=== PATIENT | female | born 1945 | race Caucasian/White ===

== ENCOUNTER 2021-11-18 13:07 | Inpatient (IN) | payer OTHER ==
--- NOTE | 2021-11-18 14:35 | R.PREADM ---
PRE-ADMISSION SCREENING FORM SCREENING DATE AND TIME 11/17/2021 14:43 ([facility]) ANTICIPATED REHAB ADMISSION DATE 11/19/2021 REFERRING FACILITY [facility] REFERRAL DATE AND TIME 11/17/2021 14:43 ([facility]) REFERRAL OFFICE PHONE [phone] REFERRAL ROOM# 6 E ACUTE ADMIT DATE 11/16/2021 Previous Rehabilitation(s): No. 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 Shalom Almeida M.D. MR# [id number] NAME SAY ADAMSON ADDRESS [address] [facility] PHONE [facility] [address] DATE OF 1945 AGE 76 SSN# [id number] GENDER female MARITAL STATUS PREF. LANGUAGE (IF NON-SLOVAK) Austrian ADMIT FROM 02 - [facility] PRE-HOSPITAL LIVING SETTING 01 - Home (private home/apt. board/care, assisted living, skilled nursing, transitional living) HOME TYPE AND DETAILS Type of home: single family house # of steps to enter the residence: 0 # of levels in the residence: 1 # of steps within the residence: 0 PRE-HOSPITAL LIVING WITH Family/Relatives FAMILY SUPPORT Yes PRIMARY FAMILY CONTACT NAME FLORENCIA ADAMSON PRIMARY FAMILY CONTACT PHONE PRIMARY FAMILY CONTACT RELATIONSHIP Spouse PHONE PRIMARY FAMILY CONTACT ON ADM.? no IS PRIMARY FAMILY CONTACT AUTH. REP.? no 1ST EMERGENCY CONTACT FLORENCIA ADAMSON 1ST CONTACT PHONE 1ST CONTACT RELATIONSHIP Spouse PHONE 1ST CONTACT ON ADM. no IS 1ST CONTACT AUTH. REP.? no PHONE 2ND CONTACT ON ADM.? no PATIENT EMPLOYMENT STATUS Retired (for age) PATIENT EMPLOYER No Employer PAYOR INFORMATION: 1ST PAYOR NAME MEDICARE 1ST PAYOR PHONE [phone] 1ST PAYOR INJURY/ILLNESS DUE TO ACCIDENT? No ANOTHER [employer] RESPONSIBLE? No PRIMARY REHAB/ACUTE DIAGNOSIS: TOTAL RIGHT HIP ARTHROPLASTY ONSET DATE 11/16/2021 REHAB IMPAIRMENT CATEGORY (KATHI): 08 Replacement of LE (ReplLE) does NOT meet 60% rule if unilateral and patient has mass index <50 and age <85 AFFECTED EXTREMITIES: RLE PRIMARY DIAGNOSIS-RELATED SURGERIES: RIGHT TOTAL HIP ARTHROPLASTY INTERVENTIONS: - HYPERTENSION Blood pressure will be regularly assessed and medications administered as per physician recommendfabien murphy. - Diabetes Diet will be customized to manage diabetic needs. Monitor blood glucose levels and administer medication as indicated by Physician - GERD Monitor symptoms and provide medication as indicated by physician RISK FOR COMPLICATIONS: - Diabetic Complications Regular monitoring and management of blood glucose levels. pt will receive a specialized diet to help manage blood glucose levels - orthopedic right total hip arthroplasty - DVT PTT and INR will be monitored to effectively mitigate risk for development of DVT or PE while here. Medications will be administered as per MD Mobility training and regular exercise - Skin Breakdown Nursing will assess skin daily using assessment tool and will place on Skin Breakdown Precautions as Indicated per protocol - Pain Clinical staff will assess patient's pain level every shift per protocol to monitor for pain manageme nt effectiveness Educate patient on pain management strategies - Falls Patient will be evaluated for Fall Precautions and will be placed on Fall Precautions as indicated pe r protocol. Educated pt on fall prevention strategies to reduce/eliminate fall risk - Hip Dislocation pt will be educated as to posterolateral hip precautions following recent surgery to ensure proper he aling and prevention of post-op complications. - Infection Monitoring of surgical site and pt for signs and symptoms of infection. SUMMARY OF ACUTE HOSPITALIZATION: Pt. is a 76 yo Right-handed female. On 11/16/2021 she was admitted to [facility] with diagnosis TOTAL RIGHT HIP ARTHROPLASTY. Pt. was admitted to the hospital on 11/17/2021 and underwent Orthopaedic Disorders(Unilateral Hip Rep lacement ()) by ISRAEL Escobar A MD without any intraoperative complications. Her impairment category is Orthopaedic Disorders 08 - Unilateral Hip Replacement (). Pre-morbidly, Pt. was independent/mod-I in Locomotion, Safety Awareness, Social Cognition, and Balanc e; and she had good Transfers Control, Sphincter Control, Self-Care, Communication, and Endurance. Currently, she has deficits of Locomotion, Social Cognition, Safety Awareness, Balance, Sphincter Con trol, Self-Care, Transfers Control, Endurance, and Communication. Pt. is now referred to [facility] for acute in-patient rehabilitation in order to maximize patient's functional independence in activities of daily living, strength, ROM, and mobi lity. Patient has realistic goal of being discharged at assistance level 7-Ind to reside at Home with Fami ly/Relatives. 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) up to date with immunizations WEARS GLASSES PAST SURGICAL HISTORY: ABDOMINAL SURGERY anterior cervical discectomy w fusion arthroplasty, hip, total RIGHT BREAST LUMPECTOMY caesarean section x 2 COLONOSCOPY dilation and curettage of uterus discectomy, cervical, with fusion, anterior approach esophagogastroduodenoscopy foot surgery HERNIA REPAIR hysterectomy shoulder surgery SPINE SURGERY MEDICATION ALLERGIES: IODINE LEVOFLOXACIN CANAGLIFLOZIN DULAGLUTIDE ENVIRONMENTAL ALLERGIES: - Substance Allergies None Known - Other Allergies None Known CODE STATUS: Full code WEIGHT/HEIGHT/BMI: WEIGHT 188 lbs HEIGHT 5' 0" BMI 36.7 DIET: - Diet Type Regular - Diet - Solid Texture Regular - Diet - Liquid Texture Regular - Tube Feed N/A SKIN DIAGRAM: on Right hip; extent - small; stage - NS(Not Stageable). Treatment - Per Physician's Orders. REVIEW OF SYSTEMS: - Gen Alert and awake Lying in bed No apparent distress Oriented to: person, time, and place - Vital Signs Temperature: 97.4 F SBP/DBP: 117/52 Pulse: 80 Resp: 15 Vital signs stable, afebrile - CVS RRR VITAL SIGNS Temperature: 97.4 F SBP/DBP: 117/52 Pulse: 80 Resp: 15 Vital signs stable, afebrile MEDICATIONS/TREATMENT: Other- See attached MAR (Medication Administration Record). CURRENT SPHINCTER CONTROL: Pre-hospital bladder status: unspecified # of bladder accidents in the last 7 days prior to screenin Pre-hospital bowel status: unspecified # of bowel accidents in the last 7 days prior to screenin Last Bowel Movement Date: 11/17/2021 CURRENT LOCOMOTION STATUS: distance walked 2 steps with rolling walker DETAILED CURRENT FUNCTIONAL STATUS: - Bladder accident frequency: 7-Ind - No accidents in the past 7 days - Bowel accident frequency: 7-Ind - No accidents in the past 7 days - Walking score based on distance walked: 0(N/A) score based on distance walked: 1(<=50ft) - Wheelchair score based on distance traveled: 0(N/A) QI SCORES: - Self-Care A. Eating 03-Partial/moderate assistance B. Oral hygiene 02-Substantial/maximal assistance C. Toileting hygiene 02-Substantial/maximal assistance E. Shower/bathe self 02-Substantial/maximal assistance F. Upper body dressing 02-Substantial/maximal assistance G. Lower body dressing 88-Not attempted due to medical condition or safety concerns H. Putting on/taking off footwear 88-Not attempted due to medical condition or safety concerns - Mobility A. Roll left and right 03-Partial/moderate assistance B. Sit to lying 02-Substantial/maximal assistance C. Lying to sitting on side of bed 02-Substantial/maximal assistance D. Sit to stand 02-Substantial/maximal assistance E. Chair/rqi-qi-wjgyh transfer 02-Substantial/maximal assistance F. Toilet transfer 02-Substantial/maximal assistance G. Car transfer 88-Not attempted due to medical condition or safety concerns I. Walk 10 feet 88-Not attempted due to medical condition or safety concerns J. Walk 50 feet with two turns 88-Not attempted due to medical condition or safety concerns K. Walk 150 feet 88-Not attempted due to medical condition or safety concerns L. Walking 10 feet on uneven surfaces 88-Not attempted due to medical condition or safety concerns M. 1 step (curb) 88-Not attempted due to medical condition or safety concerns N. 4 steps 88-Not attempted due to medical condition or safety concerns O. 12 steps 88-Not attempted due to medical condition or safety concerns P. Picking up object 88-Not attempted due to medical condition or safety concerns R. Wheel 50 feet with two turns 88-Not attempted due to medical condition or safety concerns S. Wheel 150 feet 88-Not attempted due to medical condition or safety concerns - Bladder and Bowel Bladder continence Bowel continence - Endurance Fair - Balance Fair - Safety Awareness Fair CURRENT FUNC. DEFICITS: Self-Care, Mobility, Endurance, Balance, and Safety Awareness CURRENT / PREVIOUS ASSISTIVE DEVICES: Rolling Walker HISTORY OF FALLS. HAS THE PATIENT HAD TWO OR MORE FALLS IN THE PAST YEAR OR ANY FALL WITH INJURY IN T HE PAST YEAR?: No PRIOR SURGERY. DID THE PATIENT HAVE MAJOR SURGERY DURING THE 100 DAYS PRIOR TO ADMISSION?: Yes THERAPY NOTES FROM ACUTE CARE: Attached. SPECIAL NEEDS: - Safety Concerns Skin breakdown precautions needed due to skin breakdown risk PRECAUTIONS: - Posterior Hip Precaution No adduction across midline No external rotation No hip flexion >90 degrees No internal rotation No wheel chair propulsion - Weight Bearing Precaution WBAT right LE PATIENT NEEDS ACTIVE AND ONGOING THERAPEUTIC INTERVENTION OF MULTIPLE THERAPY DISCIPLINES, INCLUDING: - Dietary and Nutrition Adequate Nutrition. Nutritional Education. Nutritional Supplements. Evaluate and Treat. - Occupational Therapy Cognitive Retraining. Patient needs Occupational Therapy for a daily minimum of 1.5 hours at least 5 out of 7 days, to improve Activities of Daily Living, including: Eating, Grooming, Bathing, Dressing, Toileting, Toilet Transfers, Community Reintegration, Higher functional activities, Adaptive Equipme nt, Splinting, Household Tasks, and Other activities as determined. Visual Perceptual Training. Evalu ate and Treat. Safety Awareness. Patient/Family Education. Transfer Training. Adaptive Equipment. ADL Training. - Speech Therapy Speech Intelligibility Training. Evaluate and Treat. Cognitive Training. Receptive Language Skills. M james Strategies. - Physical Therapy Patient needs Physical Therapy for a daily minimum of 1.5 hours at least 5 out of 7 days, to improve: Mobility, Strengthening, Transfers, Stretching, ROM, Endurance, Ability to manage stairs, Gait, and Balance. Evaluate and Treat. Gait Training. Mobility Training. Safety Awareness. Balance Training. Tr ansfer Training. LE Strengthening. PATIENT NEEDS CLOSE MEDICAL SUPERVISION BY A REHABILITATION PHYSICIAN FOR: Coordination of Treatment Team Post-Op Complications Wound Care Medical and Co-Morbidity Management Pain Management DVT Management Diabetes Management Sleep Problems PATIENT REQUIRES 24X7 REHAB NURSING FOR MEDICAL AND FUNCTIONAL MGT. OF THE FOLLOWING DEFICITS: Disease Management Medication Management Patient requires 24x7 Rehabilitation Nursing for: Pain Issues, Identifying and preventing risk factor s, Monitoring and reporting current medical conditions, Assisting with ambulation and transfer, Jarod ting with all ADL-s, Teaching patients about disease process and medications, Family teaching, Provid ing safe environment, Bowel and Bladder Issues, Skin Integrity, and Medication Management Patient/Family Education Providing Safe Environment Skin Integrity PATIENT REQUIRES INTENSIVE, COORDINATED INTERDISCIPLINARY APPROACH TO REHAB: Arranging Home Equipment/Services Discharge Planning Family Intervention/Training Patient needs Dietary and Nutrition Services for: Adequate Nutrition, Nutritional Supplements, and Nu tritional Education Patient needs Director Of Business Continuity and/or Case Management for: Discharge Planning, Arranging Home Equipmen t or Services, and Family Interventions Director Of Business Continuity/Case Management PATIENT REHAB POTENTIAL: Vandana ADAMSON is able and expected to receive 3 hours of individualized therapy daily on at least 5 of every 7 days Vandana ADAMSON's prognosis for significant practical improvement within a reasonable period of time lexie ears Good Expected level of measurable improvement will be of a practical value to Vandana ADAMSON's functional ca pacity or adaptations to impairments Has a viable Discharge Plan Medically appropriate; condition is sufficiently stable to participate in intensive rehab program DISCHARGE PLAN: - Estimated Length of Stay (days) 9. - Consensus on plan Discharge plan has been discussed with primary caregiver. Patient/Family is in agreement with the chery n. Primary caregiver is in agreement with the plan. - Patient/Family Goals Return home independently. - Planned Living Setting Upon Discharge Home, to live with Family/Relatives. Transitional Living. RECOMMENDED CARE LEVEL: IRF RECOMMENDATION DETAILS: Recommended Admission to Comprehensive Rehabilitation Program to Increase Functional [place] SCREENER'S COMPLETENESS CONFIRMATION: - Screening Confirmation The patient data collection on this preadmission screening form is finished PHYSICIANS REVIEW AND ADMISSION DETERMINATION Admit - Based on my review of the Pre-Admission Screening results, in my medical judgment and experie nce, I concur with the findings and recommend admission to [facility], as this patient requires an IRF level of care. SIGNATURE PANEL: Distribution Operation Supervisor - [electronically] signed by Kamryn Harvey on 11/18/2021 at 13:03 ([facility]) Distribution Operation Supervisor - [electronically] signed by Kelvin Lamb PT on 11/18/2021 at 14:02 ([facility]) Physician Reviewer - [electronically] signed by Dr. Shalom Almeida M.D. on 11/18/2021 at 14:34 ([facility] )
--- OUTSIDE RECORDS SUMMARY | 2021-11-18 19:16 | XMS REPORT | Continuity of Care Document ---
:1945 Author Organization [facility] t Address [address] [place] [address] Care Team Providers Name Role Phone KAILEE Attending Clinician Unavailable MD Freddy DUGAN Attending Clinician Unavailable MARGO Attending Clinician Unavailable JOANNA Attending Clinician Unavailable Meghann Shah Attending Clinician [phone] LOAN Attending Clinician Unavailable [email or web address] Attending Clinician Unavailable KAILEE Admitting Clinician Unavailable MD Freddy DUGAN Admitting Clinician Unavailable JOANNA Admitting Clinician Unavailable joanna Admitting Clinician Unavailable Payers Payer Name Policy Type Policy Number Effective Date Expiration Date S tamika MEDICARE B-[place]: [id number] 2012 [employer] 00:00:00 [employer] SUPPLEMENTAL - [id number] 2013 [employer] AND 00:00:00 LIFE INSURANCE (MEDICARE SUPPLEMENT) Problems This patient has no known problems. Allergies, Adverse Reactions, Alerts This patient has no known allergies or adverse reactions. Medications This patient has no known medications. Procedures This patient has no known procedures. Encounters Start End Encounter Admission Attending Care Care Encounter Source Date/Time Date/Time Type Type Clinicians Facility Department ID 2021-11-16 2021-11-[address] [facility] [id number] [place] 00:00:00 00:00:[address] 2021-11-01 2021-11-[address] [facility] [id number] [place] 00:00:00 00:00:[address] 2021-10-27 2021-10-27 Outpatient MARGO [facility] [id number] [place] 00:00:00 00:00:00 DOLORES [address] 2021-10-27 2021-10-27 Outpatient DUGAN, ROLAN [facility] [id number] [place] 00:00:00 00:00:[address] 2021-10-12 2021-10-12 Outpatient DUGAN, ROLAN [facility] [id number] [place] 00:00:00 00:00:[address] 2021-09-16 2021-09-16 Outpatient BRYAN_Fouzia [facility] [id number] [place] 10:55:00 10:55:00 [facility] 2021-09-16 2021-09-16 Outpatient Cheyanne Shah [facility] [id number] 00:00:00 00:00:00 Meghann [id number] 2021-08-18 2021-08-18 Outpatient DUGAN, ROLAN [facility] [id number] [place] 00:00:00 00:00:[address] 2021-08-18 2021-08-18 Outpatient DUGAN, ROLAN [facility] [id number] [place] 00:00:00 00:00:[address] 2021-07-29 2021-07-29 Outpatient DUGAN, ROLAN [facility] [id number] [place] 00:00:00 00:00:[address] 2021-07-12 2021-07-12 Outpatient DUGAN, ROLAN [facility] [id number] [place] 00:00:00 00:00:[address] 2021-07-12 2021-07-12 Outpatient DUGAN, ROLAN [facility] [id number] [place] 00:00:00 00:00:[address] 2021-05-21 2021-05-21 Outpatient CATES, ADRIEL [facility] [id number] [place] 00:00:00 00:00:[address] 2021-04-29 2021-04-29 Outpatient DUGAN, ROLAN [facility] [id number] [place] 00:00:00 00:00:[address] 2021-04-29 2021-04-29 Outpatient DUGAN, ROLAN [facility] [id number] [place] 00:00:00 00:00:[address] 2021-04-29 2021-04-29 Outpatient ROLAN DUGAN [facility] [id number] [place] 00:00:00 00:00:[address] 2021-04-28 2021-04-28 Outpatient ROLAN DUGAN [facility] [id number] [place] 00:00:00 00:00:[address] 2021-04-28 2021-04-28 Outpatient ROLAN DUGAN [facility] [id number] [place] 00:00:00 00:00:[address] 2021-01-04 2021-01-04 Outpatient KESUZI_Fouzia [facility] [id number] [place] 05:46:00 05:46:00 [facility] 2021-01-04 2021-01-04 Outpatient Cheyanne Shah [facility] [id number] 00:00:00 00:00:00 Meghann [id number] 2020-12-28 2020-12-28 Outpatient KEFFER_Fouzia [facility] [id number] [place] 02:01:00 02:01:00 [facility] 2020-12-28 2020-12-28 Outpatient Cheyanne Shah [facility] [id number] 00:00:00 00:00:00 Meghann [id number] 2020-12-21 2020-12-21 Outpatient KESUZI_Fouzia [facility] [id number] [place] 12:01:00 12:01:00 [facility] 2020-07-29 2020-07-29 Outpatient keffer_a [facility] MM 2019 [place] 02:19:00 02:19:00 [id number] 2018-08-08 2018-08-08 Outpatient keffer_a [facility] MM 2019 [place] 04:05:00 04:05:00 [facility] Results Test Description Test Time Test Comments Results Result Comments Source SARS-CoV-2 (COVID-19) RNA [Presence] in Respiratory sp ecimen by 2021-11-18 02:11:13 YENI with probe detection Test Item Value Reference Range Interpretation Comme nts SARS-CoV-2 (COVID-19) RNA [Presence] in Respiratory specimen by Not detected YENI with probe detection (test code = 54374-5) Whether patient is employed in a healthcare setting (test code = Un known 76768-6) Whether the patient has symptoms related to condition of interest U nknown (test code = 00329-8) Whether the patient was hospitalized for condition of interest Unkn own (test code = 69410-1) Whether the patient was admitted to intensive care unit (ICU) for U nknown condition of interest (test code = 64426-1) Whether patient resides in a congregate care setting (test code = U nknown 13671-6) status (test code = 68866-8) Unknown Date and time of symptom onset (test code = 48713-2) Unknown SARS-CoV-2 (COVID-19) RNA [Presence] in Respiratory specimen by YENI with probe [id number] 21:49:41 Test Item Value Reference Range Interpretation Comments SARS-CoV-2 (COVID-19) RNA Not detected Not-Detected [Presence] in Respiratory specimen by YENI with probe detection (test code = 68207-2) Whether patient is employed in a healthcare setting (test code = 47771-2) Whether the patient has symptoms related to condition of interest (test code = 72155-6) Patient was hospitalized because of this condition (test code = 88408-6) Whether the patient was admitted to intensive care unit (ICU) for condition of interest (test code = 82662-1) Whether patient resides in a congregate care setting (test code = 27812-8)
[2021-11-18] MEDS ORDERED: GLUCAGON 1 MG/VIAL IM PRN (21:00)
[2021-11-18] MEDS ORDERED: D50W 25 GM/50 ML SYRINGE IV PRN (21:00)
[2021-11-18] MEDS: VENLAFAXINE HCL 75 MG TABLET PO SCH (21:00)
[2021-11-18] MEDS ORDERED: MECLIZINE HCL 12.5 MG TAB PO PRN (21:00)
[2021-11-18] MEDS ORDERED: DOCUSATE NA/SENNA CONC 1 TAB PO PRN (21:00)
[2021-11-18 21:11] VITALS: BMI 34.4
[2021-11-18] MEDS ORDERED: REFRESH OPTH OPTH PRN (21:15)
[2021-11-18] MEDS: ATORVASTATIN 20 MG TAB PO SCH (21:22)
[2021-11-18] MEDS ORDERED: VENLAFAXINE HCL XR 75 MG CAP PO ONE (21:41)
[2021-11-18] MEDS: BENZONATATE 100 MG CAP PO PRN (21:49)
[2021-11-18 23:05] LABS: Urine Appearance CLEAR (Clear); Urine Bilirubin NEGATIVE (Negative); Urine Blood NEGATIVE (Negative); Urine Color YELLOW (Yellow); Urine Glucose NEGATIVE (Negative); Urine Protein NEGATIVE (Negative); Urine Specific Gravity <=1.005 (1.005-1.030); Urine Urobilinogen 0.2 mg/dL (0.2-1.0)
[2021-11-18 23:07] LABS: Urine Microscopic Reflex NO UMIC
[2021-11-19] MEDS: HYDROCODONE/APAP 10/325 TAB PO PRN ×2 (01:59→13:47)
[2021-11-19] MEDS: LEVOTHYROXINE SOD 0.05 MG TABLET PO SCH (05:20)
[2021-11-19 05:54] LABS: Absolute Lymphocytes (CBC) 2.7 K/uL (0.7-4.9); Lymphocytes % 27.7 % (15.3-44.8); MPV 6.2 fL (7.6-11.3); RBC Red Blood Cell Count 2.42 M/uL (3.86-4.86)
[2021-11-19 05:59] LABS: Hematocrit 20.7 % (36.0-45.0)
[2021-11-19 06:31] LABS: Albumin 2.1 g/dL (3.4-5.0); Magnesium 1.8 mg/dL (1.8-2.4); Phosphorus 3.8 mg/dL (2.5-4.9); Potassium 4.4 mmol/L (3.5-5.1); Prealbumin 11.5 mg/dL (20-40)
[2021-11-19] MEDS: PANTOPRAZOLE 40MG TABLET PO SCH (07:24)
[2021-11-19] MEDS: INSULIN -REGULAR HUMAN 50 UNIT/0.5 ML ML SQ SCH ×4 (07:30→19:55)
[2021-11-19] MEDS: INSULIN 70/30 100 UNITS/ML SQ SCH ×2 (07:57→16:30)
[2021-11-19] MEDS: FERROUS SULFATE 325 MG TAB PO SCH (07:58)
[2021-11-19] MEDS: FUROSEMIDE 20 MG TABLET PO SCH (07:58)
[2021-11-19] MEDS: METFORMIN HCL 500 MG TAB PO SCH ×2 (07:58→17:10)
[2021-11-19] MEDS: VITAMIN B COMPLEX 1 CAP PO SCH (07:58)
[2021-11-19] MEDS: lisinopriL 10 MG TAB PO SCH (07:58)
[2021-11-19] MEDS: RIVAROXABAN 10 MG TABLET PO SCH (07:58)
[2021-11-19] MEDS: POTASSIUM CL SA 10 MEQ TAB PO SCH (07:58)
[2021-11-19] MEDS: FE SULF/FA/VIT B COMP & C TAB PO SCH (07:58)
[2021-11-19] MEDS: POLYETHYL GLY 3350 17 GM/DOSE PO SCH (07:59)
[2021-11-19] MEDS ORDERED: BIOTIN PO SCH (08:00)
[2021-11-19] MEDS ORDERED: [UNRECOGNIZED DRUG - OTHER] PO SCH (08:00)
[2021-11-19] MEDS: FLUTICASONE 50MCG NASAL SPRAY NAS SCH (09:02)
[2021-11-19] MEDS: CELECOXIB 100 MG CAPSULE PO SCH (09:02)
[2021-11-19] MEDS: COENZYME Q10- 200 MG CAP PO SCH (09:02)
[2021-11-19] MEDS: OCUVITE (VIT A,C & E/LUTEIN/MINERAL) TABLET PO SCH (10:13)
[2021-11-19] MEDS: NYSTATIN PWDR 100000 UNIT/GM TOP SCH ×2 (10:14→19:55)
--- NOTE | 2021-11-19 10:21 | P.RH.PN ---
Estimated Length of Stay: 14 Expected Discharge Date: 12/02/21 Discharge Disposition Plan: Home Family Support: Yes Senior Care Goal: Mobility, Transfers, Self Care Vital Signs: Last Vital Signs Temp 95.8 F L 11/19/21 07:48 Pulse 86 11/19/21 07:58 Resp 16 11/19/21 07:48 BP 124/56 L 11/19/21 07:58 Pulse Ox 92 11/19/21 07:51 Laboratory: Laboratory Last Values WBC 9.60 K/uL (4.3-10.9) 11/19/21 05:43 RBC 2.42 M/uL (3.86-4.86) L 11/19/21 05:43 Hgb 7.1 g/dL (12.0-15.0) L 11/19/21 05:43 Hct 20.7 % (36.0-45.0) L* 11/19/21 05:43 MCV 85.5 fL (80-100) 11/19/21 05:43 MCH 29.4 pg (27.0-35.0) 11/19/21 05:43 MCHC 34.4 g/dL (32.0-36.0) 11/19/21 05:43 RDW 14.6 % (12.1-15.2) 11/19/21 05:43 Plt Count 422 K/uL (152-406) H 11/19/21 05:43 MPV 6.2 fL (7.6-11.3) L 11/19/21 05:43 Neutrophils % 56.1 % (41.7-73.7) 11/19/21 05:43 Lymphocytes % 27.7 % (15.3-44.8) 11/19/21 05:43 Monocytes % 11.5 % (3.3-12.3) 11/19/21 05:43 Eosinophils % 4.3 % (0-4.4) 11/19/21 05:43 Basophils % 0.4 % (0-1.3) 11/19/21 05:43 Absolute Neutrophils 5.4 K/uL (1.8-8.0) 11/19/21 05:43 Absolute Lymphocytes 2.7 K/uL (0.7-4.9) 11/19/21 05:43 Absolute Monocytes 1.1 K/uL (0.1-1.3) 11/19/21 05:43 Absolute Eosinophils 0.4 K/uL (0-0.5) 11/19/21 05:43 Absolute Basophils 0.0 K/uL (0-0.5) 11/19/21 05:43 Sodium 134 mmol/L (136-145) L 11/19/21 05:43 Potassium 4.4 mmol/L (3.5-5.1) 11/19/21 05:43 Chloride 101 mmol/L (98-107) 11/19/21 05:43 Carbon Dioxide 30 mmol/L (21-32) 11/19/21 05:43 BUN 13 mg/dL (7-18) 11/19/21 05:43 Creatinine 0.68 mg/dL (0.55-1.3) 11/19/21 05:43 Estimated GFR 85 mL/min (=/>90) L 11/19/21 05:43 Glucose 137 mg/dL (74-106) H 11/19/21 05:43 POC Glucose 136 mg/dL (65-120) H 11/19/21 07:24 Calcium 8.7 mg/dL (8.5-10.1) 11/19/21 05:43 Phosphorus 3.8 mg/dL (2.5-4.9) 11/19/21 05:43 Magnesium 1.8 mg/dL (1.8-2.4) 11/19/21 05:43 Albumin 2.1 g/dL (3.4-5.0) L 11/19/21 05:43 Prealbumin 11.5 mg/dL (20-40) L 11/19/21 05:43 Urine Color Cancelled 11/18/21 22:43 Urine Appearance Cancelled 11/18/21 22:43 Urine pH Cancelled 11/18/21 22:43 Ur Specific [place] Cancelled 11/18/21 22:43 Glucose (UA)(Auto) Cancelled 11/18/21 22:43 Urine Ketones Cancelled 11/18/21 22:43 Urine Blood Cancelled 11/18/21 22:43 Urine Nitrite Cancelled 11/18/21 22:43 Urine Bilirubin Cancelled 11/18/21 22:43 Urine Urobilinogen Cancelled 11/18/21 22:43 Ur Leukocyte Esterase Cancelled 11/18/21 22:43 Ur Microscopic Review Cancelled 11/18/21 22:43 Urine Total Protein Cancelled 11/18/21 22:43 SARS-CoV-2 Rap RNA(RT-PCR) Negative (NEGATIVE) 11/18/21 21:45 Crossmatch See Detail 11/19/21 Unknown Weight: 176 lb 9.6 oz Physician Update: Her Hgb is very low at 7.1. Will give a unit of PRBCs. She will be evaluated by therapy this AM. Summary: Patient's care plan and long-term goals have been reviewed and revised as necessary. Please see the Rehabilitation Signature page for all necessary signatures.
--- NOTE | 2021-11-19 14:54 | R.HP ---
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 board/care, assisted living, mcc, transitional living) PRE-HOSPITAL LIVING WITH Family/Relatives ENCOUNTER PHYSICIAN: Dr. Shalom Almeida M.D. 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 is a 76 yo Right-handed female. On 11/16/2021 she was admitted to [facility] with diagnosis TOTAL RIGHT HIP ARTHROPLASTY. Pt. was admitted to the hospital on 11/19/2021 and underwent Orthopaedic Disorders(Unilateral Hip Rep lacement ()) by ISRAEL Escobar MD without any intraoperative complications. Her impairment category is Orthopaedic Disorders 08 - Unilateral Hip Replacement (51). Pre-morbidly, Pt. was independent/mod-I in Locomotion, Safety Awareness, Social Cognition, and Balanc e; and she had good Transfers Control, Sphincter Control, Self-Care, Communication, and Endurance. Currently, she has deficits of Locomotion, Social Cognition, Safety Awareness, Balance, Sphincter Con trol, Self-Care, Transfers Control, Endurance, and Communication. Pt. is now referred to [facility] for acute in-patient rehabilitation in order to maximize patient's functional independence in activities of daily living, strength, ROM, and mobi lity. Patient has realistic goal of being discharged at assistance level 7-Ind to reside at Home with Fami ly/Relatives. 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) up to date with immunizations WEARS GLASSES PAST SURGICAL HISTORY: ABDOMINAL SURGERY anterior cervical discectomy w fusion arthroplasty, hip, total RIGHT BREAST LUMPECTOMY caesarean section x 2 COLONOSCOPY dilation and curettage of uterus discectomy, cervical, with fusion, anterior approach esophagogastroduodenoscopy foot surgery HERNIA REPAIR hysterectomy shoulder surgery SPINE SURGERY SOCIAL HISTORY: - Home Living Family/Relatives REVIEW OF SYSTEMS: - Gen No Chills Fatigue No Fever - Eyes No Double Vision No itchiness - ENMT No Difficulty Swallowing - CVS No Chest Discomfort No Chest Pain Fatigue No Weight Gain - Resp No Cough Shortness of Breath - GI Continent No Abdominal Pain Constipation No Diarrhea - Continent No Kidney Pain No Painful Urination No Urinary Urgency - MSK No Joint Pain Muscle Cramps Stiffness - Skin No Itching No Rash No Suspicious Lesions - Neuro Coordination Difficulty No Difficulty with Concentration No Memory Loss No Seizures Weakness - Psych No Anxiety No Depression No HIV Exposure No Persistent Infections No Seasonal Allergies - Endo No Cold/Heat Intolerance No Excessive Hunger No Excessive Thirst No Excessive Urination PHYSICAL EXAM - Gen Alert and awake Lying in bed No apparent distress Oriented to: person, time, and place - Skin No skin breakdown. Normacephalic - Eyes No abnormalities - ENMT No abnormalities - Neck No abnormalities - CVS RRR - Chest No abnormalities - Resp No wheezing - Abd Soft - GI Non distended Deferred - No abnormalities - Ext No significant edema - MSK 4+/5 weakness in both lower extremities. - Neuro No focal deficits - Psych No abnormalities VITAL SIGNS Temperature: 97.8 F SBP/DBP: 124/56 Pulse: 86 Resp: 16 NURSING: - Shower allowing shower - Skin care per protocol PRECAUTIONS: - Posterior Hip Precaution No adduction across midline No external rotation No hip flexion >90 degrees No internal rotation No wheel chair propulsion - Weight Bearing Precaution WBAT right LE ACTIVITIES OOB only with supervision QI SCORES: - Self-Care A. Eating 03-Partial/moderate assistance B. Oral hygiene 02-Substantial/maximal assistance C. Toileting hygiene 02-Substantial/maximal assistance E. Shower/bathe self 02-Substantial/maximal assistance F. Upper body dressing 02-Substantial/maximal assistance G. Lower body dressing 88-Not attempted due to medical condition or safety concerns H. Putting on/taking off footwear 88-Not attempted due to medical condition or safety concerns - Mobility A. Roll left and right 03-Partial/moderate assistance B. Sit to lying 02-Substantial/maximal assistance C. Lying to sitting on side of bed 02-Substantial/maximal assistance D. Sit to stand 02-Substantial/maximal assistance E. Chair/wfk-kf-zdpwi transfer 02-Substantial/maximal assistance F. Toilet transfer 02-Substantial/maximal assistance G. Car transfer 88-Not attempted due to medical condition or safety concerns I. Walk 10 feet 88-Not attempted due to medical condition or safety concerns J. Walk 50 feet with two turns 88-Not attempted due to medical condition or safety concerns K. Walk 150 feet 88-Not attempted due to medical condition or safety concerns L. Walking 10 feet on uneven surfaces 88-Not attempted due to medical condition or safety concerns M. 1 step (curb) 88-Not attempted due to medical condition or safety concerns N. 4 steps 88-Not attempted due to medical condition or safety concerns O. 12 steps 88-Not attempted due to medical condition or safety concerns P. Picking up object 88-Not attempted due to medical condition or safety concerns R. Wheel 50 feet with two turns 88-Not attempted due to medical condition or safety concerns S. Wheel 150 feet 88-Not attempted due to medical condition or safety concerns - Bladder and Bowel Bladder continence Bowel continence - Endurance Fair - Balance Fair - Safety Awareness Fair CURRENT FUNC. DEFICITS: Self-Care, Mobility, Endurance, Balance, and Safety Awareness MEDICATIONS: - Other See attached MAR (Medication Administration Record) ASSESSMENT: Pt. is a 76 yo Right-handed female.On 11/16/2021 she was admitted to [facility] with diagnosis TOTAL R IGHT HIP ARTHROPLASTY.Pt. was admitted to the hospital on 11/19/2021 and underwent Orthopaedic Disord ers(Unilateral Hip Replacement ()) by ISRAEL Escobar A without any intraoperative complications .Her impairment category is Orthopaedic Disorders 08 - Unilateral Hip Replacement ().Pre-morbid ly, Pt. was independent/mod-I in Locomotion, Safety Awareness, Social Cognition, and Balance; and she had good Transfers Control, Sphincter Control, Self-Care, Communication, and Endurance.Currently, sh annie has deficits of Locomotion, Social Cognition, Safety Awareness, Balance, Sphincter Control, Self-Ca re, Transfers Control, Endurance, and Communication.Pt. is now referred to [facility] for acute in-patient rehabilitation in order to maximize patient's functional independence in activities of daily living, strength, ROM, and mobility.- Rehab Goal Patient has realistic goal of being discharged at assistance level 7-Ind to reside at Home with Fami ly/Relatives. - Physical Therapy Decreased range of motion - to improve, our physical therapists will perform initial evaluation of pt 's status upon admission and devise an individualized program for increasing patient's Range of Motio n. Gait dysfunction - to improve, our physical therapists will perform initial evaluation of pt's status upon admission and devise an individualized program for Gait Training, and Wheel Chair mobility Inability to transfer - to improve, our physical therapists will perform initial evaluation of pt's s tatus upon admission and devise an individualized program for Bed mobility Need for home safety evaluation - to improve, our physical therapists will perform initial evaluation of pt's status upon admission and devise an individualized program for Home Evaluation Need in caregiver upon discharge - to improve, our physical therapists will perform initial evaluatio n of pt's status upon admission and devise an individualized program for Caregiver Training New precaution - to improve, our physical therapists will perform initial evaluation of pt's status u nan admission and devise an individualized program for Patient precaution education Edema - to improve, our physical therapists will perform initial evaluation of pt's status upon admi ssion and devise an individualized program for Elevation Training, and Lymphedema Therapy Poor balance - to improve, our physical therapists will perform initial evaluation of pt's status upo n admission and devise an individualized program for Balance Training Poor endurance - to improve, our physical therapists will perform initial evaluation of pt's status u nan admission and devise an individualized program for Endurance Training Weakness - to improve, our physical therapists will perform initial evaluation of pt's status upon ad mission and devise an individualized program for Aquatic Therapy, Neuromuscular Reeducation, and Stre ngthening Achieving independence - to improve, our physical therapists will perform initial evaluation of pt's status upon admission and devise an individualized program for Community Reintegration Activities - Occupational Therapy ADL deficits - to improve, our occupation therapists will perform initial evaluation of pt's status u nan admission and devise an individualized program for Bathing, Bed mobility, Community Reintegration , Cooking, Dressing, Eating, Fine Motor Skills, Grooming, Homemaking, Kitchen Mobility, Laundry, Gabi ent Education, Safety Awareness, Splinting - Positioning, Transfers(Toilet, Tub, Shower), and Wheel C hair Management Cognitive deficits - to improve, our occupation therapists will perform initial evaluation of pt's st atus upon admission and devise an individualized program for Cognition - orientation Need for rental boats caretaker - to improve, our occupation therapists will perform initial evaluation of pt's s tatus upon admission and devise an individualized program for Caregiver Training Weakness - to improve, our occupation therapists will perform initial evaluation of pt's status upon admission and devise an individualized program for Aquatic Therapy, Balance, Endurance, UE ROM, and U E strengthening MEDICAL PLAN: - Anterior Hip Precaution No abduction No active extension No adduction across midline No external rotation No hip flexion >90 degrees No internal rotation - Diet - Liquid Texture Start Regular - Tube Feed Start N/A - Diet Type Start Regular - Posterior Hip Precaution No adduction across midline No external rotation No hip flexion >90 degrees No internal rotation No wheel chair propulsion - Weight Bearing Precaution WBAT right LE - Skin care per protocol - Other See attached MAR (Medication Administration Record) - Diet - Solid Texture Regular - Shower shower DISCHARGE PLAN: - Estimated Length of Stay (days) 9. - Consensus on plan Discharge plan has been discussed with primary caregiver. Patient/Family is in agreement with the chery n. Primary caregiver is in agreement with the plan. - Patient/Family Goals Return home independently. - Planned Living Setting Upon Discharge Home, to live with Family/Relatives. Transitional Living. 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
--- NOTE | 2021-11-19 14:55 | PAPE ---
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 Shalom Almeida M.D. ADMISSION DIAGNOSIS: TOTAL RIGHT HIP ARTHROPLASTY ONSET DATE 11/16/2021 POST-ADMISSION FUNCTIONAL/MEDICAL STATUS: - Bladder Same accident frequency: 7-Ind - No accidents in the past 7 days - Bowel Same accident frequency: 7-Ind - No accidents in the past 7 days - Walking Same score based on distance walked: 0(N/A) Same score based on distance walked: 1(<=50ft) - Wheelchair Same score based on distance traveled: 0(N/A) STATUS CHANGE EVALUATION: No change in Functional or Medical Status is identified compared with Pre-Admission screening. PATIENT NEEDS CLOSE MEDICAL SUPERVISION BY A REHABILITATION PHYSICIAN FOR: Coordination of Treatment Team Post-Op Complications Wound Care Medical and Co-Morbidity Management Pain Management DVT Management Diabetes Management Sleep Problems PATIENT REQUIRES 24X7 REHAB NURSING FOR MEDICAL AND FUNCTIONAL MGT. OF THE FOLLOWING DEFICITS: Disease Management Medication Management Patient requires 24x7 Rehabilitation Nursing for: Pain Issues, Identifying and preventing risk factor s, Monitoring and reporting current medical conditions, Assisting with ambulation and transfer, Jarod ting with all ADL-s, Teaching patients about disease process and medications, Family teaching, Provid ing safe environment, Bowel and Bladder Issues, Skin Integrity, and Medication Management Patient/Family Education Providing Safe Environment Skin Integrity PATIENT REQUIRES INTENSIVE, COORDINATED INTERDISCIPLINARY APPROACH TO REHAB: Arranging Home Equipment/Services Discharge Planning Family Intervention/Training Patient needs Dietary and Nutrition Services for: Adequate Nutrition, Nutritional Supplements, and Nu tritional Education Patient needs Building Maintenance Custodian and/or Case Management for: Discharge Planning, Arranging Home Equipmen t or Services, and Family Interventions Building Maintenance Custodian/Case Management LIST OF IDENTIFIED AND POTENTIAL PROBLEMS: Alteration in leisure activities Bladder, Incontinence Bowel, Incontinence Infection, Actual or Potential Mobility Impaired Pain, Alteration in Comfort Self Care Deficit Skin Integrity, Actual or Potential Urinary Tract Infection (UTI), Actual or Potential RISK FOR COMPLICATIONS - Diabetic Complications Regular monitoring and management of blood glucose levels. pt will receive a specialized diet to help manage blood glucose levels. - orthopedic right total hip arthroplasty. - DVT PTT and INR will be monitored to effectively mitigate risk for development of DVT or PE while here. M edications will be administered as per MD. Mobility training and regular exercise. - Skin Breakdown Nursing will assess skin daily using assessment tool and will place on Skin Breakdown Precautions as Indicated per protocol. - Pain Clinical staff will assess patient's pain level every shift per protocol to monitor for pain manageme nt effectiveness. Educate patient on pain management strategies. - Falls Patient will be evaluated for Fall Precautions and will be placed on Fall Precautions as indicated pe r protocol. Educated pt on fall prevention strategies to reduce/eliminate fall risk. - Hip Dislocation pt will be educated as to posterolateral hip precautions following recent surgery to ensure proper he aling and prevention of post-op complications. - Infection Monitoring of surgical site and pt for signs and symptoms of infection. INTERVENTIONS - HYPERTENSION Blood pressure will be regularly assessed and medications administered as per physician recommendatio ns. - Diabetes Diet will be customized to manage diabetic needs. Monitor blood glucose levels and administer medicat ion as indicated by Physician. - GERD Monitor symptoms and provide medication as indicated by physician. PATIENT COULD BE AT RISK FOR COMPLICATIONS FROM ADVERSE MEDICAL CONDITIONS DUE TO HIS/HER COMORBIDITI ES AND THE RIGORS OF THE INTENSIVE REHABILLITATION PROGRAM. METHODS OR INTERVENTIONS TO AVOID COMPLIC ATIONS INCLUDE: - Deep Vein Thrombosis (DVT) Prophylaxis therapy for prevention . Sequential Compression Device (SCD). TE D Hose. - Bleeding Assess lab values and manage abnormalities. Nursing to teach precautions for anti-coagulation therapy . Wound to be assessed every shift. - Infection Clinical staff to assess and manage the signs and symptoms of infection including fever, redness, war mth, etc. - Urinary Tract Infection - Falls Patient will be evaluated for Fall Precautions and will be placed on Fall Precautions as indicated pe r protocol. - Skin Breakdown Nursing will assess skin daily using assessment tool and will place on Skin Breakdown Precautions as indicated per protocol. - Pain Clinical staff may employ non-medication methods such as massage, distraction, decrease stimulus, etc . as needed. Clinical staff will assess patient's pain level every shift per protocol to assess and e nsure pain management effectiveness. Medications will be given and the pain level re-assessed. PRELIMINARY PLAN OF CARE: - Physical Therapy Patient needs Physical Therapy for a daily minimum of 1.5 hours at least 5 out of 7 days, to improve: Mobility, Strengthening, Transfers, Stretching, ROM, Endurance, Ability to manage stairs, Gait, and Balance. - Rehabilitation Nursing Patient requires 24x7 Rehabilitation Nursing for: Pain Issues, Identifying and preventing risk factor s, Monitoring and reporting current medical conditions, Assisting with ambulation and transfer, Jarod ting with all ADL-s, Teaching patients about disease process and medications, Family teaching, Provid ing safe environment, Bowel and Bladder Issues, Skin Integrity, and Medication Management. Patient needs Building Maintenance Custodian and/or Case Management for: Discharge Planning, Arranging Home Equipmen t or Services, and Family Interventions. - Dietary and Nutrition Services Patient needs Dietary and Nutrition Services for: Adequate Nutrition, Nutritional Supplements, and Nu tritional Education. - Occupational Therapy Patient needs Occupational Therapy for a daily minimum of 1.5 hours at least 5 out of 7 days, to impr ove Activities of Daily Living, including: Eating, Grooming, Bathing, Dressing, Toileting, Toilet Tra nsfers, Community Reintegration, Higher functional activities, Adaptive Equipment, Splinting, Househo ld Tasks, and Other activities as determined. QI SCORES: - Self-Care A. Eating 03-Partial/moderate assistance B. Oral hygiene 02-Substantial/maximal assistance C. Toileting hygiene 02-Substantial/maximal assistance E. Shower/bathe self 02-Substantial/maximal assistance F. Upper body dressing 02-Substantial/maximal assistance G. Lower body dressing 88-Not attempted due to medical condition or safety concerns H. Putting on/taking off footwear 88-Not attempted due to medical condition or safety concerns - Mobility A. Roll left and right 03-Partial/moderate assistance B. Sit to lying 02-Substantial/maximal assistance C. Lying to sitting on side of bed 02-Substantial/maximal assistance D. Sit to stand 02-Substantial/maximal assistance E. Chair/adh-ll-asvff transfer 02-Substantial/maximal assistance F. Toilet transfer 02-Substantial/maximal assistance G. Car transfer 88-Not attempted due to medical condition or safety concerns I. Walk 10 feet 88-Not attempted due to medical condition or safety concerns J. Walk 50 feet with two turns 88-Not attempted due to medical condition or safety concerns K. Walk 150 feet 88-Not attempted due to medical condition or safety concerns L. Walking 10 feet on uneven surfaces 88-Not attempted due to medical condition or safety concerns M. 1 step (curb) 88-Not attempted due to medical condition or safety concerns N. 4 steps 88-Not attempted due to medical condition or safety concerns O. 12 steps 88-Not attempted due to medical condition or safety concerns P. Picking up object 88-Not attempted due to medical condition or safety concerns R. Wheel 50 feet with two turns 88-Not attempted due to medical condition or safety concerns S. Wheel 150 feet 88-Not attempted due to medical condition or safety concerns - Bladder and Bowel Bladder continence Bowel continence - Endurance Fair - Balance Fair - Safety Awareness Fair POTENTIAL FUNCTIONAL GOALS FOR PATIENT TO ACHIEVE BY DISCHARGE: - Safety Precaution Patient will remain free from falls or injury at time of discharge. - Bed Mobility Patient will perform bed mobility at 4-Silver level of assistance. - Transfers Patient will complete transfers from bed to chair at 4-Silver level of assistance. - Mobility Patient will ambulate 150 ft with 4-Silver level of assistance with RW. PATIENT REHAB POTENTIAL Vandana ADAMSON is able and expected to receive 3 hours of individualized therapy daily on at least 5 of every 7 days Vandana ADAMSON's prognosis for significant practical improvement within a reasonable period of time lexie ears Good Expected level of measurable improvement will be of a practical value to Vandana ADAMSON's functional ca pacity or adaptations to impairments Has a viable Discharge Plan Medically appropriate; condition is sufficiently stable to participate in intensive rehab program DISCHARGE PLAN: - Estimated Length of Stay (days) 9. - Consensus on plan Discharge plan has been discussed with primary caregiver. Patient/Family is in agreement with the chery n. Primary caregiver is in agreement with the plan. - Patient/Family Goals Return home independently. - Planned Living Setting Upon Discharge Home, to live with Family/Relatives. Transitional Living. CONCLUSION ON REHABILITATION NECESSITY: I have evaluated patient's pre-admission functional status and, comparing it to the patient's post-ad mission functional status now, I conclude that the pre-admission assessment was accurate. Patient's c ondition on admission supports the medical necessity of admission to [facility]. It is safe to proceed with patient's therapy program. 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
[2021-11-19] MEDS ORDERED: NA CHLORIDE 0.9% 250 ML IV SCH (15:00)
[2021-11-19] MEDS ORDERED: BISACODYL 10 MG RECTAL SUPP PR PRN (16:26)
[2021-11-19] MEDS ORDERED: INSULIN ISOPHANE HUMAN SQ SCH (16:30)
[2021-11-19] MEDS ORDERED: INSULIN REGULAR HUMAN SQ SCH (16:30)
[2021-11-19] MEDS: BENZONATATE 100 MG CAP PO PRN (16:32)
[2021-11-19] MEDS ORDERED: MAGNESIUM CITRATE 300 ML BOT PO SCH (17:00)
[2021-11-19] MEDS: BACLOFEN 10 MG TAB PO PRN (18:21)
[2021-11-19] MEDS: MAGNESIUM OXIDE 400 MG TAB PO SCH (19:54)
[2021-11-19] MEDS: SYSTANE LUBRICANT EYE OPTH SCH (19:54)
[2021-11-19] MEDS: ATORVASTATIN 20 MG TAB PO SCH (19:55)
[2021-11-19] MEDS: VENLAFAXINE HCL 75 MG TABLET PO SCH (20:16)
[2021-11-20] MEDS: HYDROCODONE/APAP 10/325 TAB PO PRN (00:39)
[2021-11-20] MEDS: PANTOPRAZOLE 40MG TABLET PO SCH (06:46)
[2021-11-20] MEDS: LEVOTHYROXINE SOD 0.05 MG TABLET PO SCH (06:46)
[2021-11-20] MEDS: INSULIN -REGULAR HUMAN 50 UNIT/0.5 ML ML SQ SCH ×4 (07:15→19:54)
[2021-11-20] MEDS: POLYETHYL GLY 3350 17 GM/DOSE PO SCH ×2 (08:00→08:45)
[2021-11-20] MEDS: INSULIN 70/30 100 UNITS/ML SQ SCH ×2 (08:00→16:30)
[2021-11-20] MEDS: ACETAMINOPHEN 500 MG TAB PO PRN ×2 (08:38→17:18)
[2021-11-20] MEDS: METFORMIN HCL 500 MG TAB PO SCH ×2 (08:39→17:18)
[2021-11-20] MEDS: POTASSIUM CL SA 10 MEQ TAB PO SCH (08:39)
[2021-11-20] MEDS: RIVAROXABAN 10 MG TABLET PO SCH (08:40)
[2021-11-20] MEDS: FUROSEMIDE 20 MG TABLET PO SCH (08:40)
[2021-11-20] MEDS: CELECOXIB 100 MG CAPSULE PO SCH (08:40)
[2021-11-20] MEDS: FERROUS SULFATE 325 MG TAB PO SCH (08:40)
[2021-11-20] MEDS: OCUVITE (VIT A,C & E/LUTEIN/MINERAL) TABLET PO SCH (08:45)
[2021-11-20] MEDS: VITAMIN B COMPLEX 1 CAP PO SCH (08:45)
[2021-11-20] MEDS: MAGNESIUM OXIDE 400 MG TAB PO SCH ×2 (08:45→19:53)
[2021-11-20] MEDS: FE SULF/FA/VIT B COMP & C TAB PO SCH (08:45)
[2021-11-20] MEDS: NYSTATIN PWDR 100000 UNIT/GM TOP SCH ×2 (08:46→19:53)
[2021-11-20] MEDS: K2 PO SCH (08:48)
[2021-11-20] MEDS: COENZYME Q10- 200 MG CAP PO SCH (08:48)
[2021-11-20] MEDS: BIOTIN 500 MCG PO SCH (08:48)
[2021-11-20] MEDS: VITAMIN D3 PO SCH (08:48)
[2021-11-20] MEDS: FLUTICASONE 50MCG NASAL SPRAY NAS SCH (08:49)
[2021-11-20] MEDS: lisinopriL 10 MG TAB PO SCH (12:28)
[2021-11-20] MEDS: ATORVASTATIN 20 MG TAB PO SCH (19:53)
[2021-11-20] MEDS: SYSTANE LUBRICANT EYE OPTH SCH (19:53)
[2021-11-20] MEDS: VENLAFAXINE HCL 75 MG TABLET PO SCH (19:54)
[2021-11-20] MEDS: LORAZEPAM 0.5 MG TABLET PO PRN (22:24)
[2021-11-21] MEDS: BACLOFEN 10 MG TAB PO PRN (00:30)
[2021-11-21] MEDS: LEVOTHYROXINE SOD 0.05 MG TABLET PO SCH (05:41)
[2021-11-21] MEDS: INSULIN -REGULAR HUMAN 50 UNIT/0.5 ML ML SQ SCH ×4 (07:20→20:24)
[2021-11-21] MEDS: PANTOPRAZOLE 40MG TABLET PO SCH (07:33)
[2021-11-21] MEDS: INSULIN 70/30 100 UNITS/ML SQ SCH ×2 (08:00→16:30)
[2021-11-21 08:26] LABS: Absolute Lymphocytes (CBC) 1.5 K/uL (0.7-4.9); Hematocrit 26.8 % (36.0-45.0); Lymphocytes % 16.6 % (15.3-44.8); MPV 6.7 fL (7.6-11.3); RBC Red Blood Cell Count 3.07 M/uL (3.86-4.86)
[2021-11-21 08:43] LABS: BUN Blood Urea Nitrogen 10 mg/dL (7-18); Bicarbonate 28 mmol/L (21-32); Glucose Level 168 mg/dL (74-106); Potassium 4.3 mmol/L (3.5-5.1); Sodium Level 138 mmol/L (136-145)
[2021-11-21] MEDS: ACETAMINOPHEN 500 MG TAB PO PRN ×2 (09:07→17:26)
[2021-11-21] MEDS: FUROSEMIDE 20 MG TABLET PO SCH (09:08)
[2021-11-21] MEDS: RIVAROXABAN 10 MG TABLET PO SCH (09:08)
[2021-11-21] MEDS: lisinopriL 10 MG TAB PO SCH (09:09)
[2021-11-21] MEDS: METFORMIN HCL 500 MG TAB PO SCH ×2 (09:09→16:47)
[2021-11-21] MEDS: POTASSIUM CL SA 10 MEQ TAB PO SCH (09:09)
[2021-11-21] MEDS: OCUVITE (VIT A,C & E/LUTEIN/MINERAL) TABLET PO SCH (09:09)
[2021-11-21] MEDS: FE SULF/FA/VIT B COMP & C TAB PO SCH (09:10)
[2021-11-21] MEDS: VITAMIN B COMPLEX 1 CAP PO SCH (09:10)
[2021-11-21] MEDS: FERROUS SULFATE 325 MG TAB PO SCH (09:10)
[2021-11-21] MEDS: CELECOXIB 100 MG CAPSULE PO SCH (09:11)
[2021-11-21] MEDS: POLYETHYL GLY 3350 17 GM/DOSE PO SCH (09:13)
[2021-11-21] MEDS: COENZYME Q10- 200 MG CAP PO SCH (09:13)
[2021-11-21] MEDS: VITAMIN D3 PO SCH (09:14)
[2021-11-21] MEDS: BIOTIN 500 MCG PO SCH (09:14)
[2021-11-21] MEDS: K2 PO SCH (09:14)
[2021-11-21] MEDS: FLUTICASONE 50MCG NASAL SPRAY NAS SCH (09:14)
[2021-11-21] MEDS: NYSTATIN PWDR 100000 UNIT/GM TOP SCH ×2 (09:20→20:25)
[2021-11-21] MEDS: MAGNESIUM OXIDE 400 MG TAB PO SCH ×2 (09:20→20:38)
[2021-11-21] MEDS: SYSTANE LUBRICANT EYE OPTH SCH (20:25)
[2021-11-21] MEDS: VENLAFAXINE HCL 75 MG TABLET PO SCH (20:51)
[2021-11-21] MEDS: TAMSULOSIN 0.4 MG SR CAP PO SCH (20:52)
[2021-11-21] MEDS: ATORVASTATIN 20 MG TAB PO SCH (20:52)
[2021-11-21] MEDS: LORAZEPAM 0.5 MG TABLET PO PRN (22:47)
[2021-11-22] MEDS: BACLOFEN 10 MG TAB PO PRN (00:49)
[2021-11-22] MEDS: LEVOTHYROXINE SOD 0.05 MG TABLET PO SCH (05:01)
[2021-11-22] MEDS: INSULIN -REGULAR HUMAN 50 UNIT/0.5 ML ML SQ SCH ×4 (07:13→20:24)
[2021-11-22] MEDS: PANTOPRAZOLE 40MG TABLET PO SCH (07:14)
[2021-11-22] MEDS: FUROSEMIDE 20 MG TABLET PO SCH (08:25)
[2021-11-22] MEDS: RIVAROXABAN 10 MG TABLET PO SCH (08:25)
[2021-11-22] MEDS: lisinopriL 10 MG TAB PO SCH (08:26)
[2021-11-22] MEDS: METFORMIN HCL 500 MG TAB PO SCH ×2 (08:26→16:46)
[2021-11-22] MEDS: POLYETHYL GLY 3350 17 GM/DOSE PO SCH (08:27)
[2021-11-22] MEDS: HYDROCODONE/APAP 5/325 MG TAB PO PRN ×2 (08:27→12:08)
[2021-11-22] MEDS: POTASSIUM CL SA 10 MEQ TAB PO SCH (08:27)
[2021-11-22] MEDS: INSULIN 70/30 100 UNITS/ML SQ SCH ×2 (08:31→16:45)
[2021-11-22] MEDS: FLUTICASONE 50MCG NASAL SPRAY NAS SCH (08:33)
[2021-11-22] MEDS: BIOTIN 500 MCG PO SCH (08:34)
[2021-11-22] MEDS: K2 PO SCH (08:34)
[2021-11-22] MEDS: VITAMIN D3 PO SCH (08:34)
[2021-11-22] MEDS: FE SULF/FA/VIT B COMP & C TAB PO SCH (08:38)
[2021-11-22] MEDS: MAGNESIUM OXIDE 400 MG TAB PO SCH ×2 (08:38→19:54)
[2021-11-22] MEDS: COENZYME Q10- 200 MG CAP PO SCH (08:38)
[2021-11-22] MEDS: CELECOXIB 100 MG CAPSULE PO SCH (08:38)
[2021-11-22] MEDS: VITAMIN B COMPLEX 1 CAP PO SCH (08:38)
[2021-11-22] MEDS: OCUVITE (VIT A,C & E/LUTEIN/MINERAL) TABLET PO SCH (08:38)
[2021-11-22] MEDS: FERROUS SULFATE 325 MG TAB PO SCH (08:38)
[2021-11-22] MEDS: NYSTATIN PWDR 100000 UNIT/GM TOP SCH ×2 (08:39→19:54)
[2021-11-22] MEDS ORDERED: MELATONIN 3 MG TABLET PO PRN (14:56)
--- NOTE | 2021-11-22 17:11 | R.PN ---
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 Pt denied any Shortness of Breath. WBCj 8.8, Hgb 8.9 after one unit of PRBCs, glu 117 to 166, Sprinkler Helper 0.62, prealbumin 11.5, UA is normal, c ovid-19 is negative. Self-propelled wheelchair 50' with standby assistance. Ambulated 22' with minimum assistance using a rolling walker. VITAL SIGNS Temperature: 97.2 F SBP/DBP: 152/72 Pulse: 82 Resp: 15 MEDICATION ALLERGIES: IODINE LEVOFLOXACIN CANAGLIFLOZIN DULAGLUTIDE ENVIRONMENTAL ALLERGIES: - Substance Allergies None Known - Other Allergies None Known NURSING: - Shower allowing shower - Skin care per protocol PRECAUTIONS: - Posterior Hip Precaution No adduction across midline No external rotation No hip flexion >90 degrees No internal rotation No wheel chair propulsion - Weight Bearing Precaution WBAT right LE ACTIVITIES OOB only with supervision THERAPIES: - Dietary and Nutrition Adequate Nutrition. Nutritional Education. Nutritional Supplements. Evaluate and Treat. - Occupational Therapy Cognitive Retraining. Patient needs Occupational Therapy for a daily minimum of 1.5 hours at least 5 out of 7 days, to improve Activities of Daily Living, including: Eating, Grooming, Bathing, Dressing, Toileting, Toilet Transfers, Community Reintegration, Higher functional activities, Adaptive Equipme nt, Splinting, Household Tasks, and Other activities as determined. Visual Perceptual Training. Evalu ate and Treat. Safety Awareness. Patient/Family Education. Transfer Training. Adaptive Equipment. ADL Training. - Speech Therapy Speech Intelligibility Training. Evaluate and Treat. Cognitive Training. Receptive Language Skills. M james Strategies. - Physical Therapy Patient needs Physical Therapy for a daily minimum of 1.5 hours at least 5 out of 7 days, to improve: Mobility, Strengthening, Transfers, Stretching, ROM, Endurance, Ability to manage stairs, Gait, and Balance. Evaluate and Treat. Gait Training. Mobility Training. Safety Awareness. Balance Training. Tr ansfer Training. LE Strengthening. PHYSICAL EXAM - Gen Alert and awake Lying in bed No apparent distress Oriented to: person, time, and place - Skin No skin breakdown. Normacephalic - Eyes No abnormalities - ENMT No abnormalities - Neck No abnormalities - CVS RRR - Chest No abnormalities - Resp No wheezing - Abd Soft - GI Non distended Deferred - No abnormalities - Ext No significant edema - MSK 4+/5 weakness in both lower extremities. - Neuro No focal deficits - Psych No abnormalities ASSESSMENT: Pt. is a 76 yo Right-handed female.On 11/16/2021 she was admitted to [facility] with diagnosis TOTAL R IGHT HIP ARTHROPLASTY.Pt. was admitted to the hospital on 11/22/2021 and underwent Orthopaedic Disord ers(Unilateral Hip Replacement ()) by ISRAEL Escobar MD without any intraoperative complications .Her impairment category is Orthopaedic Disorders 08 - Unilateral Hip Replacement ().Pre-morbid ly, Pt. was independent/mod-I in Locomotion, Safety Awareness, Social Cognition, and Balance; and she had good Transfers Control, Sphincter Control, Self-Care, Communication, and Endurance.Currently, sh e has deficits of Locomotion, Social Cognition, Safety Awareness, Balance, Sphincter Control, Self-Ca re, Transfers Control, Endurance, and Communication.Pt. is now referred to [facility] for acute in-patient rehabilitation in order to maximize patient's functional independence in activities of daily living, strength, ROM, and mobility.- Rehab Goal Patient has realistic goal of being discharged at assistance level 7-Ind to reside at Home with Fami ly/Relatives. MDM/PLAN: - Physical Therapy Decreased range of motion - to improve, our physical therapists will perform initial evaluation of p t's status upon admission and devise an individualized program for increasing patient's Range of Donny on. Gait dysfunction - to improve, our physical therapists will perform initial evaluation of pt's statu s upon admission and devise an individualized program for Gait Training, and Wheel Chair mobility Inability to transfer - to improve, our physical therapists will perform initial evaluation of pt's status upon admission and devise an individualized program for Bed mobility Need for home safety evaluation - to improve, our physical therapists will perform initial evaluatio n of pt's status upon admission and devise an individualized program for Home Evaluation Need in caregiver upon discharge - to improve, our physical therapists will perform initial evaluati on of pt's status upon admission and devise an individualized program for Caregiver Training New precaution - to improve, our physical therapists will perform initial evaluation of pt's status upon admission and devise an individualized program for Patient precaution education Edema - to improve, our physical therapists will perform initial evaluation of pt's status upon admis júnior and devise an individualized program for Elevation Training, and Lymphedema Therapy Poor balance - to improve, our physical therapists will perform initial evaluation of pt's status up on admission and devise an individualized program for Balance Training Poor endurance - to improve, our physical therapists will perform initial evaluation of pt's status upon admission and devise an individualized program for Endurance Training Weakness - to improve, our physical therapists will perform initial evaluation of pt's status upon a dmission and devise an individualized program for Aquatic Therapy, Neuromuscular Reeducation, and Str engthening Achieving independence - to improve, our physical therapists will perform initial evaluation of pt's status upon admission and devise an individualized program for Community Reintegration Activities - Occupational Therapy ADL deficits - to improve, our occupation therapists will perform initial evaluation of pt's status upon admission and devise an individualized program for Bathing, Bed mobility, Community Reintegratio n, Cooking, Dressing, Eating, Fine Motor Skills, Grooming, Homemaking, Kitchen Mobility, Laundry, Pat ient Education, Safety Awareness, Splinting - Positioning, Transfers(Toilet, Tub, Shower), and Wheel Chair Management Cognitive deficits - to improve, our occupation therapists will perform initial evaluation of pt's s tatus upon admission and devise an individualized program for Cognition - orientation Need for career agent - to improve, our occupation therapists will perform initial evaluation of pt's status upon admission and devise an individualized program for Caregiver Training Weakness - to improve, our occupation therapists will perform initial evaluation of pt's status upon admission and devise an individualized program for Aquatic Therapy, Balance, Endurance, UE ROM, and UE strengthening - Other See attached MAR (Medication Administration Record) - Anterior Hip Precaution No abduction No active extension No adduction across midline No external rotation No hip flexion >90 degrees No internal rotation - Diet - Liquid Texture Continue Regular - Tube Feed Continue N/A - Diet Type Continue Regular - Posterior Hip Precaution No adduction across midline No external rotation No hip flexion >90 degrees No internal rotation No wheel chair propulsion - Weight Bearing Precaution WBAT right LE - Skin care per protocol - Diet - Solid Texture Continue Regular - Shower allowing shower FUNCTIONAL STATUS: UPDATED AT WEEKLY TEAM CONFERENCE - Bladder Same accident frequency: 7-Ind - No accidents in the past 7 days - Bowel Same accident frequency: 7-Ind - No accidents in the past 7 days - Walking Same score based on distance walked: 0(N/A) Same score based on distance walked: 1(<=50ft) - Wheelchair Same score based on distance traveled: 0(N/A) FUNCTIONAL STATUS: - Self-Care A. Eating Ind B. Grooming Ind C. Bathing modA D. Dressing - Upper Silver E. Dressing - Lower modA F. Toileting modA - Sphincter Control G. Bladder control sup H. Bowel control sup - Transfers Control I. Bed/Chair/Wheelchair Silver J. Toilet Silver K. Tub/Shower modA - Locomotion L. Walk/Wheelchair (B) Silver M. Stairs maxA - Communication N. Comprehension (B) Steffen O. Expression (B) Steffen - Social Cognition P. Social Interaction Ind Q. Problem Solving Steffen R. Memory Steffen - Endurance Poor - Balance Fair - Safety Awareness Fair QI SCORES: - Self-Care A. Eating 03-Partial/moderate assistance B. Oral hygiene 02-Substantial/maximal assistance C. Toileting hygiene 02-Substantial/maximal assistance E. Shower/bathe self 02-Substantial/maximal assistance F. Upper body dressing 02-Substantial/maximal assistance G. Lower body dressing 88-Not attempted due to medical condition or safety concerns H. Putting on/taking off footwear 88-Not attempted due to medical condition or safety concerns - Mobility A. Roll left and right 03-Partial/moderate assistance B. Sit to lying 02-Substantial/maximal assistance C. Lying to sitting on side of bed 02-Substantial/maximal assistance D. Sit to stand 02-Substantial/maximal assistance E. Chair/ucg-ju-vkjsw transfer 02-Substantial/maximal assistance F. Toilet transfer 02-Substantial/maximal assistance G. Car transfer 88-Not attempted due to medical condition or safety concerns I. Walk 10 feet 88-Not attempted due to medical condition or safety concerns J. Walk 50 feet with two turns 88-Not attempted due to medical condition or safety concerns K. Walk 150 feet 88-Not attempted due to medical condition or safety concerns L. Walking 10 feet on uneven surfaces 88-Not attempted due to medical condition or safety concerns M. 1 step (curb) 88-Not attempted due to medical condition or safety concerns N. 4 steps 88-Not attempted due to medical condition or safety concerns O. 12 steps 88-Not attempted due to medical condition or safety concerns P. Picking up object 88-Not attempted due to medical condition or safety concerns R. Wheel 50 feet with two turns 88-Not attempted due to medical condition or safety concerns S. Wheel 150 feet 88-Not attempted due to medical condition or safety concerns - Bladder and Bowel Bladder continence Bowel continence - Endurance Fair - Balance Fair - Safety Awareness Fair CURRENT [facility]. DEFICITS: Self-Care, Mobility, Endurance, Balance, and Safety Awareness SIGNATURE PANEL: (CDT)
[2021-11-22] MEDS: GABAPENTIN 100 MG CAP PO SCH (19:54)
[2021-11-22] MEDS: ATORVASTATIN 20 MG TAB PO SCH (20:23)
[2021-11-22] MEDS: TAMSULOSIN 0.4 MG SR CAP PO SCH (20:23)
[2021-11-22] MEDS: VENLAFAXINE HCL 75 MG TABLET PO SCH (20:23)
[2021-11-22] MEDS: SYSTANE LUBRICANT EYE OPTH SCH (20:24)
[2021-11-23 05:14] LABS: Absolute Lymphocytes (CBC) 2.2 K/uL (0.7-4.9); Hematocrit 25.9 % (36.0-45.0); Lymphocytes % 27.4 % (15.3-44.8); MPV 6.8 fL (7.6-11.3); RBC Red Blood Cell Count 2.96 M/uL (3.86-4.86)
[2021-11-23 05:25] LABS: Potassium 4.4 mmol/L (3.5-5.1)
[2021-11-23] MEDS: LEVOTHYROXINE SOD 0.05 MG TABLET PO SCH (05:27)
[2021-11-23] MEDS: INSULIN -REGULAR HUMAN 50 UNIT/0.5 ML ML SQ SCH ×4 (07:13→19:55)
[2021-11-23] MEDS: PANTOPRAZOLE 40MG TABLET PO SCH (07:37)
[2021-11-23] MEDS: LIDOCAINE 4% PATCH TOP SCH (07:55)
[2021-11-23] MEDS: POLYETHYL GLY 3350 17 GM/DOSE PO SCH (07:55)
[2021-11-23] MEDS: FUROSEMIDE 20 MG TABLET PO SCH (07:57)
[2021-11-23] MEDS: lisinopriL 10 MG TAB PO SCH (07:57)
[2021-11-23] MEDS: RIVAROXABAN 10 MG TABLET PO SCH (07:57)
[2021-11-23] MEDS: GABAPENTIN 100 MG CAP PO SCH ×2 (07:57→19:54)
[2021-11-23] MEDS: HYDROCODONE/APAP 5/325 MG TAB PO PRN ×3 (07:58→20:13)
[2021-11-23] MEDS: METFORMIN HCL 500 MG TAB PO SCH ×2 (07:58→16:50)
[2021-11-23] MEDS: POTASSIUM CL SA 10 MEQ TAB PO SCH (07:58)
[2021-11-23] MEDS: FERROUS SULFATE 325 MG TAB PO SCH (07:58)
[2021-11-23] MEDS: OCUVITE (VIT A,C & E/LUTEIN/MINERAL) TABLET PO SCH (08:18)
[2021-11-23] MEDS: CELECOXIB 100 MG CAPSULE PO SCH (08:18)
[2021-11-23] MEDS: VITAMIN B COMPLEX 1 CAP PO SCH (08:18)
[2021-11-23] MEDS: COENZYME Q10- 200 MG CAP PO SCH (08:18)
[2021-11-23] MEDS: FE SULF/FA/VIT B COMP & C TAB PO SCH (08:18)
[2021-11-23] MEDS: NYSTATIN PWDR 100000 UNIT/GM TOP SCH ×2 (08:19→19:53)
[2021-11-23] MEDS: BIOTIN 500 MCG PO SCH (08:20)
[2021-11-23] MEDS: FLUTICASONE 50MCG NASAL SPRAY NAS SCH (08:20)
[2021-11-23] MEDS: K2 PO SCH (08:20)
[2021-11-23] MEDS: VITAMIN D3 PO SCH (08:20)
[2021-11-23] MEDS: MAGNESIUM OXIDE 400 MG TAB PO SCH ×2 (08:21→19:54)
[2021-11-23] MEDS: INSULIN 70/30 100 UNITS/ML SQ SCH ×2 (08:56→17:10)
--- NOTE | 2021-11-23 17:36 | R.PN ---
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 Pt denied any Shortness of Breath. WBC 8.0, Hgb 8.6 after one unit of PRBCs, glu 113 to 174, Tribal [employer] Member 0.68, prealbumin 11.5, UA is normal, co vid-19 is negative. Self-propelled wheelchair 150' with standby assistance. Ambulated 92' with standby assistance using a rolling walker. VITAL SIGNS Temperature: 97.4 F SBP/DBP: 141/64 Pulse: 82 Resp: 16 MEDICATION ALLERGIES: IODINE LEVOFLOXACIN CANAGLIFLOZIN DULAGLUTIDE ENVIRONMENTAL ALLERGIES: - Substance Allergies None Known - Other Allergies None Known NURSING: - Shower allowing shower - Skin care per protocol PRECAUTIONS: - Posterior Hip Precaution No adduction across midline No external rotation No hip flexion >90 degrees No internal rotation No wheel chair propulsion - Weight Bearing Precaution WBAT right LE ACTIVITIES OOB only with supervision THERAPIES: - Dietary and Nutrition Adequate Nutrition. Nutritional Education. Nutritional Supplements. Evaluate and Treat. - Occupational Therapy Cognitive Retraining. Patient needs Occupational Therapy for a daily minimum of 1.5 hours at least 5 out of 7 days, to improve Activities of Daily Living, including: Eating, Grooming, Bathing, Dressing, Toileting, Toilet Transfers, Community Reintegration, Higher functional activities, Adaptive Equipme nt, Splinting, Household Tasks, and Other activities as determined. Visual Perceptual Training. Evalu ate and Treat. Safety Awareness. Patient/Family Education. Transfer Training. Adaptive Equipment. ADL Training. - Speech Therapy Speech Intelligibility Training. Evaluate and Treat. Cognitive Training. Receptive Language Skills. M james Strategies. - Physical Therapy Patient needs Physical Therapy for a daily minimum of 1.5 hours at least 5 out of 7 days, to improve: Mobility, Strengthening, Transfers, Stretching, ROM, Endurance, Ability to manage stairs, Gait, and Balance. Evaluate and Treat. Gait Training. Mobility Training. Safety Awareness. Balance Training. Tr ansfer Training. LE Strengthening. PHYSICAL EXAM - Gen Alert and awake Lying in bed No apparent distress Oriented to: person, time, and place - Skin No skin breakdown. Normacephalic - Eyes No abnormalities - ENMT No abnormalities - Neck No abnormalities - CVS RRR - Chest No abnormalities - Resp No wheezing - Abd Soft - GI Non distended Deferred - No abnormalities - Ext No significant edema - MSK 4+/5 weakness in both lower extremities. - Neuro No focal deficits - Psych No abnormalities ASSESSMENT: Pt. is a 76 yo Right-handed female.On 11/16/2021 she was admitted to [facility] with diagnosis TOTAL R IGHT HIP ARTHROPLASTY.Pt. was admitted to the hospital on 11/23/2021 and underwent Orthopaedic Disord ers(Unilateral Hip Replacement ()) by ISRAEL Escobar A MD without any intraoperative complications .Her impairment category is Orthopaedic Disorders 08 - Unilateral Hip Replacement ().Pre-morbid ly, Pt. was independent/mod-I in Locomotion, Safety Awareness, Social Cognition, and Balance; and she had good Transfers Control, Sphincter Control, Self-Care, Communication, and Endurance.Currently, sh e has deficits of Locomotion, Social Cognition, Safety Awareness, Balance, Sphincter Control, Self-Ca re, Transfers Control, Endurance, and Communication.Pt. is now referred to [facility] for acute in-patient rehabilitation in order to maximize patient's functional independence in activities of daily living, strength, ROM, and mobility.- Rehab Goal Patient has realistic goal of being discharged at assistance level 7-Ind to reside at Home with Fami ly/Relatives. MDM/PLAN: - Physical Therapy Decreased range of motion - to improve, our physical therapists will perform initial evaluation of p t's status upon admission and devise an individualized program for increasing patient's Range of Donny on. Gait dysfunction - to improve, our physical therapists will perform initial evaluation of pt's statu s upon admission and devise an individualized program for Gait Training, and Wheel Chair mobility Inability to transfer - to improve, our physical therapists will perform initial evaluation of pt's status upon admission and devise an individualized program for Bed mobility Need for home safety evaluation - to improve, our physical therapists will perform initial evaluatio n of pt's status upon admission and devise an individualized program for Home Evaluation Need in caregiver upon discharge - to improve, our physical therapists will perform initial evaluati on of pt's status upon admission and devise an individualized program for Caregiver Training New precaution - to improve, our physical therapists will perform initial evaluation of pt's status upon admission and devise an individualized program for Patient precaution education Edema - to improve, our physical therapists will perform initial evaluation of pt's status upon admi ssion and devise an individualized program for Elevation Training, and Lymphedema Therapy Poor balance - to improve, our physical therapists will perform initial evaluation of pt's status up on admission and devise an individualized program for Balance Training Poor endurance - to improve, our physical therapists will perform initial evaluation of pt's status upon admission and devise an individualized program for Endurance Training Weakness - to improve, our physical therapists will perform initial evaluation of pt's status upon a dmission and devise an individualized program for Aquatic Therapy, Neuromuscular Reeducation, and Str engthening Achieving independence - to improve, our physical therapists will perform initial evaluation of pt's status upon admission and devise an individualized program for Community Reintegration Activities - Occupational Therapy ADL deficits - to improve, our occupation therapists will perform initial evaluation of pt's status upon admission and devise an individualized program for Bathing, Bed mobility, Community Reintegratio n, Cooking, Dressing, Eating, Fine Motor Skills, Grooming, Homemaking, Kitchen Mobility, Laundry, Pat ient Education, Safety Awareness, Splinting - Positioning, Transfers(Toilet, Tub, Shower), and Wheel Chair Management Cognitive deficits - to improve, our occupation therapists will perform initial evaluation of pt's s tatus upon admission and devise an individualized program for Cognition - orientation Need for child care cook - to improve, our occupation therapists will perform initial evaluation of pt's status upon admission and devise an individualized program for Caregiver Training Weakness - to improve, our occupation therapists will perform initial evaluation of pt's status upon admission and devise an individualized program for Aquatic Therapy, Balance, Endurance, UE ROM, and UE strengthening - Other See attached MAR (Medication Administration Record) - Anterior Hip Precaution No abduction No active extension No adduction across midline No external rotation No hip flexion >90 degrees No internal rotation - Diet - Liquid Texture Continue Regular - Tube Feed Continue N/A - Diet Type Continue Regular - Posterior Hip Precaution No adduction across midline No external rotation No hip flexion >90 degrees No internal rotation No wheel chair propulsion - Weight Bearing Precaution WBAT right LE - Skin care per protocol - Diet - Solid Texture Continue Regular - Shower allowing shower FUNCTIONAL STATUS: UPDATED AT WEEKLY TEAM CONFERENCE - Bladder Same accident frequency: 7-Ind - No accidents in the past 7 days - Bowel Same accident frequency: 7-Ind - No accidents in the past 7 days - Walking Same score based on distance walked: 0(N/A) Same score based on distance walked: 1(<=50ft) - Wheelchair Same score based on distance traveled: 0(N/A) FUNCTIONAL STATUS: - Self-Care A. Eating Ind B. Grooming Ind C. Bathing modA D. Dressing - Upper Silver E. Dressing - Lower modA F. Toileting modA - Sphincter Control G. Bladder control sup H. Bowel control sup - Transfers Control I. Bed/Chair/Wheelchair Silver J. Toilet Silver K. Tub/Shower modA - Locomotion L. Walk/Wheelchair (B) Silver M. Stairs maxA - Communication N. Comprehension (B) Steffen O. Expression (B) Steffen - Social Cognition P. Social Interaction Ind Q. Problem Solving Steffen R. Memory Steffen - Endurance Poor - Balance Fair - Safety Awareness Fair QI SCORES: - Self-Care A. Eating 03-Partial/moderate assistance B. Oral hygiene 02-Substantial/maximal assistance C. Toileting hygiene 02-Substantial/maximal assistance E. Shower/bathe self 02-Substantial/maximal assistance F. Upper body dressing 02-Substantial/maximal assistance G. Lower body dressing 88-Not attempted due to medical condition or safety concerns H. Putting on/taking off footwear 88-Not attempted due to medical condition or safety concerns - Mobility A. Roll left and right 03-Partial/moderate assistance B. Sit to lying 02-Substantial/maximal assistance C. Lying to sitting on side of bed 02-Substantial/maximal assistance D. Sit to stand 02-Substantial/maximal assistance E. Chair/wui-jb-[id number] transfer 02-Substantial/maximal assistance F. Toilet transfer 02-Substantial/maximal assistance G. Car transfer 88-Not attempted due to medical condition or safety concerns I. Walk 10 feet 88-Not attempted due to medical condition or safety concerns J. Walk 50 feet with two turns 88-Not attempted due to medical condition or safety concerns K. Walk 150 feet 88-Not attempted due to medical condition or safety concerns L. Walking 10 feet on uneven surfaces 88-Not attempted due to medical condition or safety concerns M. 1 step (curb) 88-Not attempted due to medical condition or safety concerns N. 4 steps 88-Not attempted due to medical condition or safety concerns O. 12 steps 88-Not attempted due to medical condition or safety concerns P. Picking up object 88-Not attempted due to medical condition or safety concerns R. Wheel 50 feet with two turns 88-Not attempted due to medical condition or safety concerns S. Wheel 150 feet 88-Not attempted due to medical condition or safety concerns - Bladder and Bowel Bladder continence Bowel continence - Endurance Fair - Balance Fair - Safety Awareness Fair CURRENT [facility]. DEFICITS: Self-Care, Mobility, Endurance, Balance, and Safety Awareness SIGNATURE PANEL: (CDT)
[2021-11-23] MEDS: SYSTANE LUBRICANT EYE OPTH SCH (19:53)
[2021-11-23] MEDS: ATORVASTATIN 20 MG TAB PO SCH (19:53)
[2021-11-23] MEDS: TAMSULOSIN 0.4 MG SR CAP PO SCH (19:54)
[2021-11-23] MEDS: VENLAFAXINE HCL 75 MG TABLET PO SCH (19:54)
[2021-11-24] MEDS: BACLOFEN 10 MG TAB PO PRN ×2 (00:41→13:23)
[2021-11-24] MEDS: LEVOTHYROXINE SOD 0.05 MG TABLET PO SCH (05:05)
[2021-11-24] MEDS: FLUTICASONE 50MCG NASAL SPRAY NAS SCH (07:15)
[2021-11-24] MEDS: PANTOPRAZOLE 40MG TABLET PO SCH (07:16)
[2021-11-24] MEDS: INSULIN -REGULAR HUMAN 50 UNIT/0.5 ML ML SQ SCH ×4 (07:30→20:16)
[2021-11-24] MEDS: HYDROCODONE/APAP 5/325 MG TAB PO PRN ×2 (07:55→11:58)
[2021-11-24] MEDS: BIOTIN 500 MCG PO SCH (07:56)
[2021-11-24] MEDS: K2 PO SCH (07:56)
[2021-11-24] MEDS: VITAMIN D3 PO SCH (07:56)
[2021-11-24] MEDS: INSULIN 70/30 100 UNITS/ML SQ SCH ×2 (07:56→17:05)
[2021-11-24] MEDS: POLYETHYL GLY 3350 17 GM/DOSE PO SCH (07:56)
[2021-11-24] MEDS: CELECOXIB 100 MG CAPSULE PO SCH (07:57)
[2021-11-24] MEDS: METFORMIN HCL 500 MG TAB PO SCH ×2 (07:57→17:05)
[2021-11-24] MEDS: GABAPENTIN 100 MG CAP PO SCH (07:57)
[2021-11-24] MEDS: FERROUS SULFATE 325 MG TAB PO SCH (07:57)
[2021-11-24] MEDS: OCUVITE (VIT A,C & E/LUTEIN/MINERAL) TABLET PO SCH (07:57)
[2021-11-24] MEDS: VITAMIN B COMPLEX 1 CAP PO SCH (07:57)
[2021-11-24] MEDS: COENZYME Q10- 200 MG CAP PO SCH (07:57)
[2021-11-24] MEDS: RIVAROXABAN 10 MG TABLET PO SCH (07:57)
[2021-11-24] MEDS: FUROSEMIDE 20 MG TABLET PO SCH (07:58)
[2021-11-24] MEDS: FE SULF/FA/VIT B COMP & C TAB PO SCH (07:58)
[2021-11-24] MEDS: MAGNESIUM OXIDE 400 MG TAB PO SCH ×2 (07:58→20:14)
[2021-11-24] MEDS: lisinopriL 10 MG TAB PO SCH (07:59)
[2021-11-24] MEDS: POTASSIUM CL SA 10 MEQ TAB PO SCH (08:04)
[2021-11-24] MEDS: LIDOCAINE 4% PATCH TOP SCH (10:15)
[2021-11-24] MEDS: NYSTATIN PWDR 100000 UNIT/GM TOP SCH ×2 (10:16→20:14)
--- NOTE | 2021-11-24 15:58 | RAD REPORT ---
EXAM DESCRIPTION: USExtremity Venous Uni Ltd11/24/2021 3:36 pm CLINICAL HISTORY: Right leg pain and swelling. COMPARISON: None. FINDINGS: Right common femoral, superficial femoral, popliteal and right posterior tibial veins are compressible and demonstrate augmentation. Doppler demonstrates good flow. Grayscale, color and spectral analysis performed on all vessels IMPRESSION: No evidence of deep venous thrombosis involving the right lower extremity.
--- NOTE | 2021-11-24 16:14 | R.PN ---
PROGRESS NOTES ENCOUNTER DATE AND TIME: 11/24/2021 16:10 (CDT) NAME SAY ADAMSON DATE OF : 1945 DATE OF ADMISSION: 11/18/2021 19:15 (NEEDLE [facility]OLDER) TOTAL RIGHT HIP ARTHROPLASTYCHIEF COMPLAINT: Right hip arthroplasty SUBJECTIVE: Pt denied any depression. Pt denied any Shortness of Breath. WBC 8.0, Hgb 8.6 after one unit of PRBCs, glu 135 to 148, Vp Software Support 0.68, prealbumin 11.5, UA is normal, co vid-19 is negative. Self-propelled wheelchair 250' with standby assistance. Ambulated 147' with standby assistance using a rolling walker. VITAL SIGNS Temperature: 97.4 F SBP/DBP: 129/62 Pulse: 82 Resp: 16 MEDICATION ALLERGIES: IODINE LEVOFLOXACIN CANAGLIFLOZIN DULAGLUTIDE ENVIRONMENTAL ALLERGIES: - Substance Allergies None Known - Other Allergies None Known NURSING: - Shower allowing shower - Skin care per protocol PRECAUTIONS: - Posterior Hip Precaution No adduction across midline No external rotation No hip flexion >90 degrees No internal rotation No wheel chair propulsion - Weight Bearing Precaution WBAT right LE ACTIVITIES OOB only with supervision THERAPIES: - Dietary and Nutrition Adequate Nutrition. Nutritional Education. Nutritional Supplements. Evaluate and Treat. - Occupational Therapy Cognitive Retraining. Patient needs Occupational Therapy for a daily minimum of 1.5 hours at least 5 out of 7 days, to improve Activities of Daily Living, including: Eating, Grooming, Bathing, Dressing, Toileting, Toilet Transfers, Community Reintegration, Higher functional activities, Adaptive Equipme nt, Splinting, Household Tasks, and Other activities as determined. Visual Perceptual Training. Evalu ate and Treat. Safety Awareness. Patient/Family Education. Transfer Training. Adaptive Equipment. ADL Training. - Speech Therapy Speech Intelligibility Training. Evaluate and Treat. Cognitive Training. Receptive Language Skills. M james Strategies. - Physical Therapy Patient needs Physical Therapy for a daily minimum of 1.5 hours at least 5 out of 7 days, to improve: Mobility, Strengthening, Transfers, Stretching, ROM, Endurance, Ability to manage stairs, Gait, and Balance. Evaluate and Treat. Gait Training. Mobility Training. Safety Awareness. Balance Training. Tr ansfer Training. LE Strengthening. PHYSICAL EXAM - Gen Alert and awake Lying in bed No apparent distress Oriented to: person, time, and place - Skin No skin breakdown. Normacephalic - Eyes No abnormalities - ENMT No abnormalities - Neck No abnormalities - CVS RRR - Chest No abnormalities - Resp No wheezing - Abd Soft - GI Non distended Deferred - No abnormalities - Ext No significant edema - MSK 4+/5 weakness in both lower extremities. - Neuro No focal deficits - Psych No abnormalities ASSESSMENT: Pt. is a 76 yo Right-handed female.On 11/16/2021 she was admitted to [facility] [place] with diagnosis TOTAL R IGHT HIP ARTHROPLASTY.Pt. was admitted to the hospital on 11/24/2021 and underwent Orthopaedic Disord ers(Unilateral Hip Replacement ()) by ISRAEL Escobar A MD without any intraoperative complications .Her impairment category is Orthopaedic Disorders 08 - Unilateral Hip Replacement ().Pre-morbid ly, Pt. was independent/mod-I in Locomotion, Safety Awareness, Social Cognition, and Balance; and she had good Transfers Control, Sphincter Control, Self-Care, Communication, and Endurance.Currently, sh e has deficits of Locomotion, Social Cognition, Safety Awareness, Balance, Sphincter Control, Self-Ca re, Transfers Control, Endurance, and Communication.Pt. is now referred to [facility] for acute in-patient rehabilitation in order to maximize patient's functional independence in activities of daily living, strength, ROM, and mobility.- Rehab Goal Patient has realistic goal of being discharged at assistance level 7-Ind to reside at Home with Fami ly/Relatives. MDM/PLAN: - Physical Therapy Decreased range of motion - to improve, our physical therapists will perform initial evaluation of p t's status upon admission and devise an individualized program for increasing patient's Range of Donny on. Gait dysfunction - to improve, our physical therapists will perform initial evaluation of pt's statu s upon admission and devise an individualized program for Gait Training, and Wheel Chair mobility Inability to transfer - to improve, our physical therapists will perform initial evaluation of pt's status upon admission and devise an individualized program for Bed mobility Need for home safety evaluation - to improve, our physical therapists will perform initial evaluatio n of pt's status upon admission and devise an individualized program for Home Evaluation Need in caregiver upon discharge - to improve, our physical therapists will perform initial evaluati on of pt's status upon admission and devise an individualized program for Caregiver Training New precaution - to improve, our physical therapists will perform initial evaluation of pt's status upon admission and devise an individualized program for Patient precaution education Edema - to improve, our physical therapists will perform initial evaluation of pt's status upon admi ssion and devise an individualized program for Elevation Training, and Lymphedema Therapy Poor balance - to improve, our physical therapists will perform initial evaluation of pt's status up on admission and devise an individualized program for Balance Training Poor endurance - to improve, our physical therapists will perform initial evaluation of pt's status upon admission and devise an individualized program for Endurance Training Weakness - to improve, our physical therapists will perform initial evaluation of pt's status upon a dmission and devise an individualized program for Aquatic Therapy, Neuromuscular Reeducation, and Str engthening Achieving independence - to improve, our physical therapists will perform initial evaluation of pt's status upon admission and devise an individualized program for Community Reintegration Activities - Occupational Therapy ADL deficits - to improve, our occupation therapists will perform initial evaluation of pt's status upon admission and devise an individualized program for Bathing, Bed mobility, Community Reintegratio n, Cooking, Dressing, Eating, Fine Motor Skills, Grooming, Homemaking, Kitchen Mobility, Laundry, Pat ient Education, Safety Awareness, Splinting - Positioning, Transfers(Toilet, Tub, Shower), and Wheel Chair Management Cognitive deficits - to improve, our occupation therapists will perform initial evaluation of pt's s tatus upon admission and devise an individualized program for Cognition - orientation Need for home care giver - to improve, our occupation therapists will perform initial evaluation of pt's status upon admission and devise an individualized program for Caregiver Training Weakness - to improve, our occupation therapists will perform initial evaluation of pt's status upon admission and devise an individualized program for Aquatic Therapy, Balance, Endurance, UE ROM, and UE strengthening - Other See attached MAR (Medication Administration Record) - Anterior Hip Precaution No abduction No active extension No adduction across midline No external rotation No hip flexion >90 degrees No internal rotation - Diet - Liquid Texture Continue Regular - Tube Feed Continue N/A - Diet Type Continue Regular - Posterior Hip Precaution No adduction across midline No external rotation No hip flexion >90 degrees No internal rotation No wheel chair propulsion - Weight Bearing Precaution WBAT right LE - Skin care per protocol - Diet - Solid Texture Continue Regular - Shower allowing shower FUNCTIONAL STATUS: UPDATED AT WEEKLY TEAM CONFERENCE - Bladder Same accident frequency: 7-Ind - No accidents in the past 7 days - Bowel Same accident frequency: 7-Ind - No accidents in the past 7 days - Walking Same score based on distance walked: 0(N/A) Same score based on distance walked: 1(<=50ft) - Wheelchair Same score based on distance traveled: 0(N/A) FUNCTIONAL STATUS: - Self-Care A. Eating Ind B. Grooming Ind C. Bathing modA D. Dressing - Upper Silver E. Dressing - Lower modA F. Toileting modA - Sphincter Control G. Bladder control sup H. Bowel control sup - Transfers Control I. Bed/Chair/Wheelchair Silver J. Toilet Silver K. Tub/Shower modA - Locomotion L. Walk/Wheelchair (B) Silver M. Stairs maxA - Communication N. Comprehension (B) Steffen O. Expression (B) Steffen - Social Cognition P. Social Interaction Ind Q. Problem Solving Steffen R. Memory Steffen - Endurance Poor - Balance Fair - Safety Awareness Fair QI SCORES: - Self-Care A. Eating 03-Partial/moderate assistance B. Oral hygiene 02-Substantial/maximal assistance C. Toileting hygiene 02-Substantial/maximal assistance E. Shower/bathe self 02-Substantial/maximal assistance F. Upper body dressing 02-Substantial/maximal assistance G. Lower body dressing 88-Not attempted due to medical condition or safety concerns H. Putting on/taking off footwear 88-Not attempted due to medical condition or safety concerns - Mobility A. Roll left and right 03-Partial/moderate assistance B. Sit to lying 02-Substantial/maximal assistance C. Lying to sitting on side of bed 02-Substantial/maximal assistance D. Sit to stand 02-Substantial/maximal assistance E. Chair/[id number] transfer 02-Substantial/maximal assistance F. Toilet transfer 02-Substantial/maximal assistance G. Car transfer 88-Not attempted due to medical condition or safety concerns I. Walk 10 feet 88-Not attempted due to medical condition or safety concerns J. Walk 50 feet with two turns 88-Not attempted due to medical condition or safety concerns K. Walk 150 feet 88-Not attempted due to medical condition or safety concerns L. Walking 10 feet on uneven surfaces 88-Not attempted due to medical condition or safety concerns M. 1 step (curb) 88-Not attempted due to medical condition or safety concerns N. 4 steps 88-Not attempted due to medical condition or safety concerns O. 12 steps 88-Not attempted due to medical condition or safety concerns P. Picking up object 88-Not attempted due to medical condition or safety concerns R. Wheel 50 feet with two turns 88-Not attempted due to medical condition or safety concerns S. Wheel 150 feet 88-Not attempted due to medical condition or safety concerns - Bladder and Bowel Bladder continence Bowel continence - Endurance Fair - Balance Fair - Safety Awareness Fair CURRENT [facility]. DEFICITS: Self-Care, Mobility, Endurance, Balance, and Safety Awareness SIGNATURE PANEL: (CDT)
[2021-11-24] MEDS: SYSTANE LUBRICANT EYE OPTH SCH (20:14)
[2021-11-24] MEDS: GABAPENTIN 300 MG CAP PO SCH (20:16)
[2021-11-24] MEDS: ATORVASTATIN 20 MG TAB PO SCH (20:16)
[2021-11-24] MEDS: TAMSULOSIN 0.4 MG SR CAP PO SCH (20:16)
[2021-11-24] MEDS: VENLAFAXINE HCL 75 MG TABLET PO SCH (20:20)
[2021-11-25] MEDS: LEVOTHYROXINE SOD 0.05 MG TABLET PO SCH (05:05)
[2021-11-25 06:09] LABS: Absolute Lymphocytes (CBC) 1.7 K/uL (0.7-4.9); Hematocrit 27.3 % (36.0-45.0); MPV 6.4 fL (7.6-11.3); RBC Red Blood Cell Count 3.16 M/uL (3.86-4.86)
[2021-11-25] MEDS: PANTOPRAZOLE 40MG TABLET PO SCH (07:22)
[2021-11-25] MEDS: FLUTICASONE 50MCG NASAL SPRAY NAS SCH (07:22)
[2021-11-25] MEDS: LIDOCAINE 4% PATCH TOP SCH (07:23)
[2021-11-25] MEDS: INSULIN -REGULAR HUMAN 50 UNIT/0.5 ML ML SQ SCH ×4 (07:30→20:10)
[2021-11-25 07:39] LABS: Albumin 2.4 g/dL (3.4-5.0); BUN Blood Urea Nitrogen 11 mg/dL (7-18); Bicarbonate 28 mmol/L (21-32); Glucose Level 151 mg/dL (74-106); Magnesium 1.7 mg/dL (1.8-2.4); Potassium 4.3 mmol/L (3.5-5.1); Prealbumin 16.3 mg/dL (20-40); Sodium Level 141 mmol/L (136-145)
[2021-11-25] MEDS: HYDROCODONE/APAP 5/325 MG TAB PO PRN ×2 (07:49→12:29)
[2021-11-25] MEDS: POLYETHYL GLY 3350 17 GM/DOSE PO SCH (08:15)
[2021-11-25] MEDS: INSULIN 70/30 100 UNITS/ML SQ SCH ×2 (08:16→17:13)
[2021-11-25] MEDS: VITAMIN D3 PO SCH (08:20)
[2021-11-25] MEDS: K2 PO SCH (08:20)
[2021-11-25] MEDS: BIOTIN 500 MCG PO SCH (08:21)
[2021-11-25] MEDS: RIVAROXABAN 10 MG TABLET PO SCH (08:21)
[2021-11-25] MEDS: OCUVITE (VIT A,C & E/LUTEIN/MINERAL) TABLET PO SCH (08:22)
[2021-11-25] MEDS: COENZYME Q10- 200 MG CAP PO SCH (08:22)
[2021-11-25] MEDS: FERROUS SULFATE 325 MG TAB PO SCH (08:22)
[2021-11-25] MEDS: CELECOXIB 100 MG CAPSULE PO SCH (08:22)
[2021-11-25] MEDS: MAGNESIUM OXIDE 400 MG TAB PO SCH ×2 (08:23→20:08)
[2021-11-25] MEDS: FUROSEMIDE 20 MG TABLET PO SCH (08:23)
[2021-11-25] MEDS: POTASSIUM CL SA 10 MEQ TAB PO SCH (08:24)
[2021-11-25] MEDS: METFORMIN HCL 500 MG TAB PO SCH ×2 (08:24→17:13)
[2021-11-25] MEDS: NYSTATIN PWDR 100000 UNIT/GM TOP SCH ×3 (08:24→20:08)
[2021-11-25] MEDS: GABAPENTIN 300 MG CAP PO SCH ×2 (08:24→20:09)
[2021-11-25] MEDS: VITAMIN B COMPLEX 1 CAP PO SCH (08:25)
[2021-11-25] MEDS: FE SULF/FA/VIT B COMP & C TAB PO SCH (08:25)
[2021-11-25] MEDS: lisinopriL 10 MG TAB PO SCH (08:26)
[2021-11-25] MEDS ORDERED: ALTEPLASE 2 MG/VIAL IV SCH (17:00)
[2021-11-25 18:39] LABS: Urine Appearance CLOUDY (Clear); Urine Bilirubin NEGATIVE (Negative); Urine Blood 2+ (Negative); Urine Color YELLOW (Yellow); Urine Glucose NEGATIVE (Negative); Urine Protein NEGATIVE (Negative); Urine Specific Gravity 1.015 (1.005-1.030); Urine Urobilinogen 0.2 mg/dL (0.2-1.0); Urine pH 5.5 (5.0-7.0)
[2021-11-25 19:32] LABS: Urine Microscopic Reflex ORDER UMIC
[2021-11-25 19:35] LABS: Urine Bacteria 20-50 /HPF (<20)
[2021-11-25] MEDS: SYSTANE LUBRICANT EYE OPTH SCH (20:08)
[2021-11-25] MEDS: BACLOFEN 10 MG TAB PO SCH (20:09)
[2021-11-25] MEDS: ATORVASTATIN 20 MG TAB PO SCH (20:09)
[2021-11-25] MEDS: VENLAFAXINE HCL 75 MG TABLET PO SCH (20:09)
[2021-11-25] MEDS: TAMSULOSIN 0.4 MG SR CAP PO SCH (20:09)
[2021-11-26] MEDS: HYDROCODONE/APAP 5/325 MG TAB PO PRN ×2 (04:58→10:26)
[2021-11-26] MEDS: LEVOTHYROXINE SOD 0.05 MG TABLET PO SCH (05:02)
[2021-11-26] MEDS: FLUTICASONE 50MCG NASAL SPRAY NAS SCH (07:08)
[2021-11-26] MEDS: CELECOXIB 100 MG CAPSULE PO SCH (07:08)
[2021-11-26] MEDS: MAGNESIUM OXIDE 400 MG TAB PO SCH ×2 (07:09→20:22)
[2021-11-26] MEDS: PANTOPRAZOLE 40MG TABLET PO SCH (07:09)
[2021-11-26] MEDS: GABAPENTIN 300 MG CAP PO SCH ×2 (07:09→20:23)
[2021-11-26] MEDS: INSULIN -REGULAR HUMAN 50 UNIT/0.5 ML ML SQ SCH ×4 (07:30→20:24)
[2021-11-26] MEDS: lisinopriL 10 MG TAB PO SCH (07:30)
[2021-11-26] MEDS: FUROSEMIDE 20 MG TABLET PO SCH (07:31)
[2021-11-26] MEDS: LIDOCAINE 4% PATCH TOP SCH (07:39)
[2021-11-26] MEDS: NYSTATIN PWDR 100000 UNIT/GM TOP SCH ×2 (07:40→20:23)
[2021-11-26] MEDS: INSULIN 70/30 100 UNITS/ML SQ SCH ×2 (08:01→16:50)
[2021-11-26] MEDS: FERROUS SULFATE 325 MG TAB PO SCH (08:02)
[2021-11-26] MEDS: COENZYME Q10- 200 MG CAP PO SCH (08:02)
[2021-11-26] MEDS: POLYETHYL GLY 3350 17 GM/DOSE PO SCH (08:02)
[2021-11-26] MEDS: VITAMIN B COMPLEX 1 CAP PO SCH (08:02)
[2021-11-26] MEDS: RIVAROXABAN 10 MG TABLET PO SCH (08:02)
[2021-11-26] MEDS: FE SULF/FA/VIT B COMP & C TAB PO SCH (08:02)
[2021-11-26] MEDS: POTASSIUM CL SA 10 MEQ TAB PO SCH (08:02)
[2021-11-26] MEDS: METFORMIN HCL 500 MG TAB PO SCH ×2 (08:02→16:48)
[2021-11-26] MEDS: OCUVITE (VIT A,C & E/LUTEIN/MINERAL) TABLET PO SCH (08:03)
[2021-11-26] MEDS: VITAMIN D3 PO SCH (08:04)
[2021-11-26] MEDS: K2 PO SCH (08:04)
[2021-11-26] MEDS: BIOTIN 500 MCG PO SCH (08:04)
--- NOTE | 2021-11-26 10:07 | P.RH.PN ---
Estimated Length of Stay: 15 Expected Discharge Date: 12/03/21 Discharge Disposition Plan: Home Family Support: Yes Vital Signs: Last Vital Signs Temp 97.0 F 11/25/21 21:47 Pulse 84 11/26/21 08:37 Resp 14 11/26/21 07:36 BP 141/63 H 11/26/21 08:37 Pulse Ox 91 11/26/21 07:36 Laboratory: Laboratory Last Values WBC 7.90 K/uL (4.3-10.9) 11/25/21 05:55 RBC 3.16 M/uL (3.86-4.86) L 11/25/21 05:55 Hgb 9.1 g/dL (12.0-15.0) L 11/25/21 05:55 Hct 27.3 % (36.0-45.0) L 11/25/21 05:55 MCV 86.7 fL (80-100) 11/25/21 05:55 MCH 29.0 pg (27.0-35.0) 11/25/21 05:55 MCHC 33.4 g/dL (32.0-36.0) 11/25/21 05:55 RDW 15.0 % (12.1-15.2) 11/25/21 05:55 Plt Count 440 K/uL (152-406) H 11/25/21 05:55 MPV 6.4 fL (7.6-11.3) L 11/25/21 05:55 Neutrophils % 62.5 % (41.7-73.7) 11/25/21 05:55 Lymphocytes % 22.0 % (15.3-44.8) 11/25/21 05:55 Monocytes % 10.4 % (3.3-12.3) 11/25/21 05:55 Eosinophils % 4.3 % (0-4.4) 11/25/21 05:55 Basophils % 0.8 % (0-1.3) 11/25/21 05:55 Absolute Neutrophils 4.9 K/uL (1.8-8.0) 11/25/21 05:55 Absolute Lymphocytes 1.7 K/uL (0.7-4.9) 11/25/21 05:55 Absolute Monocytes 0.8 K/uL (0.1-1.3) 11/25/21 05:55 Absolute Eosinophils 0.3 K/uL (0-0.5) 11/25/21 05:55 Absolute Basophils 0.1 K/uL (0-0.5) 11/25/21 05:55 Sodium 141 mmol/L (136-145) 11/25/21 05:55 Potassium 4.3 mmol/L (3.5-5.1) 11/25/21 05:55 Chloride 107 mmol/L (98-107) 11/25/21 05:55 Carbon Dioxide 28 mmol/L (21-32) 11/25/21 05:55 BUN 11 mg/dL (7-18) 11/25/21 05:55 Creatinine 0.54 mg/dL (0.55-1.3) L 11/25/21 05:55 Estimated GFR > 90 mL/min (=/>90) 11/25/21 05:55 Glucose 151 mg/dL (74-106) H 11/25/21 05:55 POC Glucose 144 mg/dL (65-120) H 11/26/21 06:49 Calcium 8.7 mg/dL (8.5-10.1) 11/25/21 05:55 Phosphorus 3.8 mg/dL (2.5-4.9) 11/19/21 05:43 Magnesium 1.7 mg/dL (1.8-2.4) L 11/25/21 05:55 Albumin 2.4 g/dL (3.4-5.0) L 11/25/21 05:55 Prealbumin 16.3 mg/dL (20-40) L 11/25/21 05:55 Urine Color Yellow (Yellow) 11/25/21 18:00 Urine Appearance Cloudy (Clear) 11/25/21 18:00 Urine pH 5.5 (5.0-7.0) 11/25/21 18:00 Ur Specific Fowler 1.015 (1.005-1.030) 11/25/21 18:00 Glucose (UA)(Auto) Negative (Negative) 11/25/21 18:00 Urine Ketones Negative (Negative) 11/25/21 18:00 Urine Blood 2+ (Negative) H 11/25/21 18:00 Urine Nitrite Positive (Negative) H 11/25/21 18:00 Urine Bilirubin Negative (Negative) 11/25/21 18:00 Urine Urobilinogen 0.2 mg/dL (0.2-1.0) 11/25/21 18:00 Ur Leukocyte Esterase 3+ (Negative) H 11/25/21 18:00 Urine RBC 10-20 /HPF (NONE SEEN) H 11/25/21 18:00 Urine WBC 20-50 /HPF (<5) H 11/25/21 18:00 Ur Squamous Epith Cells 10-20 /HPF (NONE SEEN) H 11/25/21 18:00 Urine Bacteria 20-50 /HPF (<20) H 11/25/21 18:00 Ur Microscopic Review Cancelled 11/18/21 22:43 Urine Culture Reflexed Reflexed 11/25/21 18:00 Urine Total Protein Negative (Negative) 11/25/21 18:00 SARS-CoV-2 Rap RNA(RT-PCR) Negative (NEGATIVE) 11/25/21 04:45 ABO/Rh O POSITIVE 11/19/21 10:26 Solid Phase Ab Screen Negative 11/19/21 10:26 Crossmatch See Detail 11/19/21 10:26 Weight: 179 lb 9.6 oz Wound Present: No Closed Surgical Incision Present: Yes Negative Pressure Wound Therapy Present: No Physician Update: Mod assistance for bed mobility. Up to 60' with SBA, wheelchair 250' with SBA. Labs were reviewed and are stable. She had 21/30 on the MOCA and may be depressed per the patient and speech therapist. Labs were reviewed. Functional Improvement: Patient has been showing progression well w/ PT services, however can be self-limiting due to heightened anxiety. Patient follows instruction fairly well, however requires continous VC for continuation/motivation; possibly pain-related. 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 Please see the Rehabilitation Signature page for all necessary signatures.
[2021-11-26] MEDS: CRANBERRY FRUIT EXTRACT 400 MG CAP PO SCH (20:21)
[2021-11-26] MEDS: SYSTANE LUBRICANT EYE OPTH SCH (20:22)
[2021-11-26] MEDS: TAMSULOSIN 0.4 MG SR CAP PO SCH (20:23)
[2021-11-26] MEDS: VENLAFAXINE HCL 75 MG TABLET PO SCH (20:23)
[2021-11-26] MEDS: BACLOFEN 10 MG TAB PO SCH (20:24)
[2021-11-26] MEDS: ATORVASTATIN 20 MG TAB PO SCH (20:24)
[2021-11-27] MEDS: LEVOTHYROXINE SOD 0.05 MG TABLET PO SCH (05:04)
[2021-11-27] MEDS: PANTOPRAZOLE 40MG TABLET PO SCH (07:03)
[2021-11-27] MEDS: LIDOCAINE 4% PATCH TOP SCH (07:04)
[2021-11-27] MEDS: FLUTICASONE 50MCG NASAL SPRAY NAS SCH (07:04)
[2021-11-27] MEDS: NYSTATIN PWDR 100000 UNIT/GM TOP SCH ×2 (07:04→20:09)
[2021-11-27] MEDS: HYDROCODONE/APAP 5/325 MG TAB PO PRN ×2 (07:11→16:13)
[2021-11-27] MEDS: INSULIN -REGULAR HUMAN 50 UNIT/0.5 ML ML SQ SCH ×4 (07:30→20:10)
[2021-11-27] MEDS ORDERED: GABAPENTIN 300 MG CAP PO SCH (08:00)
[2021-11-27] MEDS: POLYETHYL GLY 3350 17 GM/DOSE PO SCH (08:04)
[2021-11-27] MEDS: INSULIN 70/30 100 UNITS/ML SQ SCH ×2 (08:04→16:48)
[2021-11-27] MEDS: BIOTIN 500 MCG PO SCH (08:17)
[2021-11-27] MEDS: K2 PO SCH (08:17)
[2021-11-27] MEDS: VITAMIN D3 PO SCH (08:17)
[2021-11-27] MEDS: MAGNESIUM OXIDE 400 MG TAB PO SCH ×2 (08:18→20:08)
[2021-11-27] MEDS: CELECOXIB 100 MG CAPSULE PO SCH (08:19)
[2021-11-27] MEDS: GABAPENTIN 300 MG CAP PO SCH ×2 (08:19→20:08)
[2021-11-27] MEDS: lisinopriL 10 MG TAB PO SCH (08:19)
[2021-11-27] MEDS: CRANBERRY FRUIT EXTRACT 400 MG CAP PO SCH ×2 (08:20→20:08)
[2021-11-27] MEDS: FUROSEMIDE 20 MG TABLET PO SCH (08:20)
[2021-11-27] MEDS: FERROUS SULFATE 325 MG TAB PO SCH (08:21)
[2021-11-27] MEDS: FE SULF/FA/VIT B COMP & C TAB PO SCH (08:21)
[2021-11-27] MEDS: RIVAROXABAN 10 MG TABLET PO SCH (08:21)
[2021-11-27] MEDS: METFORMIN HCL 500 MG TAB PO SCH ×2 (08:21→16:48)
[2021-11-27] MEDS: OCUVITE (VIT A,C & E/LUTEIN/MINERAL) TABLET PO SCH (08:21)
[2021-11-27] MEDS: VITAMIN B COMPLEX 1 CAP PO SCH (08:21)
[2021-11-27] MEDS: COENZYME Q10- 200 MG CAP PO SCH (08:21)
[2021-11-27] MEDS: POTASSIUM CL SA 10 MEQ TAB PO SCH (08:23)
[2021-11-27] MEDS: VENLAFAXINE HCL 75 MG TABLET PO SCH (20:07)
[2021-11-27] MEDS: ATORVASTATIN 20 MG TAB PO SCH (20:08)
[2021-11-27] MEDS: TAMSULOSIN 0.4 MG SR CAP PO SCH (20:08)
[2021-11-27] MEDS: BACLOFEN 10 MG TAB PO SCH (20:08)
[2021-11-27] MEDS: SYSTANE LUBRICANT EYE OPTH SCH (20:09)
[2021-11-28] MEDS: LEVOTHYROXINE SOD 0.05 MG TABLET PO SCH (05:09)
[2021-11-28] MEDS: INSULIN -REGULAR HUMAN 50 UNIT/0.5 ML ML SQ SCH ×4 (07:24→19:44)
[2021-11-28] MEDS: POLYETHYL GLY 3350 17 GM/DOSE PO SCH (07:25)
[2021-11-28] MEDS: LIDOCAINE 4% PATCH TOP SCH (07:25)
[2021-11-28] MEDS: PANTOPRAZOLE 40MG TABLET PO SCH (08:08)
[2021-11-28] MEDS: HYDROCODONE/APAP 5/325 MG TAB PO PRN ×2 (08:09→15:39)
[2021-11-28] MEDS: MAGNESIUM OXIDE 400 MG TAB PO SCH ×2 (08:09→19:42)
[2021-11-28] MEDS: GABAPENTIN 300 MG CAP PO SCH ×2 (08:09→19:43)
[2021-11-28] MEDS: CRANBERRY FRUIT EXTRACT 400 MG CAP PO SCH ×2 (08:09→19:42)
[2021-11-28] MEDS: INSULIN 70/30 100 UNITS/ML SQ SCH ×2 (08:10→17:16)
[2021-11-28] MEDS: OCUVITE (VIT A,C & E/LUTEIN/MINERAL) TABLET PO SCH (08:10)
[2021-11-28] MEDS: RIVAROXABAN 10 MG TABLET PO SCH (08:10)
[2021-11-28] MEDS: CELECOXIB 100 MG CAPSULE PO SCH (08:10)
[2021-11-28] MEDS: FERROUS SULFATE 325 MG TAB PO SCH (08:10)
[2021-11-28] MEDS: METFORMIN HCL 500 MG TAB PO SCH ×2 (08:11→16:34)
[2021-11-28] MEDS: FE SULF/FA/VIT B COMP & C TAB PO SCH (08:11)
[2021-11-28] MEDS: POTASSIUM CL SA 10 MEQ TAB PO SCH (08:11)
[2021-11-28] MEDS: FUROSEMIDE 20 MG TABLET PO SCH (08:11)
[2021-11-28] MEDS: lisinopriL 10 MG TAB PO SCH (08:11)
[2021-11-28] MEDS: NYSTATIN PWDR 100000 UNIT/GM TOP SCH ×2 (08:12→19:42)
[2021-11-28] MEDS: VITAMIN B COMPLEX 1 CAP PO SCH (08:12)
[2021-11-28] MEDS: K2 PO SCH (08:13)
[2021-11-28] MEDS: VITAMIN D3 PO SCH (08:13)
[2021-11-28] MEDS: COENZYME Q10- 200 MG CAP PO SCH (08:13)
[2021-11-28] MEDS: BIOTIN 500 MCG PO SCH (08:13)
[2021-11-28] MEDS: FLUTICASONE 50MCG NASAL SPRAY NAS SCH (08:14)
[2021-11-28] MEDS: SYSTANE LUBRICANT EYE OPTH SCH (19:41)
[2021-11-28] MEDS: VENLAFAXINE HCL 75 MG TABLET PO SCH (19:42)
[2021-11-28] MEDS: BACLOFEN 10 MG TAB PO SCH (19:42)
[2021-11-28] MEDS: TAMSULOSIN 0.4 MG SR CAP PO SCH (19:42)
[2021-11-28] MEDS: ATORVASTATIN 20 MG TAB PO SCH (19:43)
[2021-11-29] MEDS: HYDROCODONE/APAP 5/325 MG TAB PO PRN ×3 (04:46→17:16)
[2021-11-29] MEDS: LEVOTHYROXINE SOD 0.05 MG TABLET PO SCH (05:03)
[2021-11-29] MEDS: FLUTICASONE 50MCG NASAL SPRAY NAS SCH (06:58)
[2021-11-29] MEDS: PANTOPRAZOLE 40MG TABLET PO SCH (06:58)
[2021-11-29] MEDS: INSULIN -REGULAR HUMAN 50 UNIT/0.5 ML ML SQ SCH ×4 (07:30→20:06)
[2021-11-29] MEDS: POLYETHYL GLY 3350 17 GM/DOSE PO SCH (07:54)
[2021-11-29] MEDS: INSULIN 70/30 100 UNITS/ML SQ SCH ×2 (07:54→16:49)
[2021-11-29] MEDS: METFORMIN HCL 500 MG TAB PO SCH ×2 (08:04→16:49)
[2021-11-29] MEDS: MAGNESIUM OXIDE 400 MG TAB PO SCH ×2 (08:04→20:06)
[2021-11-29] MEDS: OCUVITE (VIT A,C & E/LUTEIN/MINERAL) TABLET PO SCH (08:04)
[2021-11-29] MEDS: CELECOXIB 100 MG CAPSULE PO SCH (08:04)
[2021-11-29] MEDS: GABAPENTIN 300 MG CAP PO SCH ×2 (08:04→20:04)
[2021-11-29] MEDS: RIVAROXABAN 10 MG TABLET PO SCH (08:05)
[2021-11-29] MEDS: FUROSEMIDE 20 MG TABLET PO SCH (08:05)
[2021-11-29] MEDS: VITAMIN B COMPLEX 1 CAP PO SCH (08:05)
[2021-11-29] MEDS: FERROUS SULFATE 325 MG TAB PO SCH (08:05)
[2021-11-29] MEDS: COENZYME Q10- 200 MG CAP PO SCH (08:05)
[2021-11-29] MEDS: CRANBERRY FRUIT EXTRACT 400 MG CAP PO SCH ×2 (08:05→20:05)
[2021-11-29] MEDS: FE SULF/FA/VIT B COMP & C TAB PO SCH (08:05)
[2021-11-29] MEDS: lisinopriL 10 MG TAB PO SCH (08:06)
[2021-11-29] MEDS: POTASSIUM CL SA 10 MEQ TAB PO SCH (08:07)
[2021-11-29] MEDS: K2 PO SCH (08:08)
[2021-11-29] MEDS: VITAMIN D3 PO SCH (08:08)
[2021-11-29] MEDS: NYSTATIN PWDR 100000 UNIT/GM TOP SCH ×2 (08:09→20:03)
[2021-11-29] MEDS: BIOTIN 500 MCG PO SCH (08:09)
[2021-11-29] MEDS: LIDOCAINE 4% PATCH TOP SCH (08:10)
[2021-11-29] MEDS: SYSTANE LUBRICANT EYE OPTH SCH (20:03)
[2021-11-29] MEDS: TAMSULOSIN 0.4 MG SR CAP PO SCH (20:04)
[2021-11-29] MEDS: VENLAFAXINE HCL 75 MG TABLET PO SCH (20:05)
[2021-11-29] MEDS: ATORVASTATIN 20 MG TAB PO SCH (20:06)
[2021-11-29] MEDS: BACLOFEN 10 MG TAB PO SCH (20:06)
[2021-11-30] MEDS: LEVOTHYROXINE SOD 0.05 MG TABLET PO SCH (05:26)
[2021-11-30] MEDS: PANTOPRAZOLE 40MG TABLET PO SCH (07:09)
[2021-11-30] MEDS: FLUTICASONE 50MCG NASAL SPRAY NAS SCH (07:09)
[2021-11-30] MEDS: LIDOCAINE 4% PATCH TOP SCH (07:09)
[2021-11-30] MEDS: INSULIN -REGULAR HUMAN 50 UNIT/0.5 ML ML SQ SCH ×4 (07:30→19:55)
[2021-11-30] MEDS: POLYETHYL GLY 3350 17 GM/DOSE PO SCH (08:12)
[2021-11-30] MEDS: INSULIN 70/30 100 UNITS/ML SQ SCH ×2 (08:12→16:59)
[2021-11-30] MEDS: HYDROCODONE/APAP 5/325 MG TAB PO PRN ×2 (08:17→12:52)
[2021-11-30] MEDS: VITAMIN B COMPLEX 1 CAP PO SCH (08:20)
[2021-11-30] MEDS: lisinopriL 10 MG TAB PO SCH (08:21)
[2021-11-30] MEDS: FE SULF/FA/VIT B COMP & C TAB PO SCH (08:21)
[2021-11-30] MEDS: CRANBERRY FRUIT EXTRACT 400 MG CAP PO SCH ×2 (08:21→19:55)
[2021-11-30] MEDS: FUROSEMIDE 20 MG TABLET PO SCH (08:21)
[2021-11-30] MEDS: COENZYME Q10- 200 MG CAP PO SCH (08:21)
[2021-11-30] MEDS: GABAPENTIN 300 MG CAP PO SCH ×2 (08:22→19:55)
[2021-11-30] MEDS: RIVAROXABAN 10 MG TABLET PO SCH (08:22)
[2021-11-30] MEDS: BACLOFEN 10 MG TAB PO SCH ×2 (08:22→19:55)
[2021-11-30] MEDS: OCUVITE (VIT A,C & E/LUTEIN/MINERAL) TABLET PO SCH (08:22)
[2021-11-30] MEDS: POTASSIUM CL SA 10 MEQ TAB PO SCH (08:22)
[2021-11-30] MEDS: FERROUS SULFATE 325 MG TAB PO SCH (08:22)
[2021-11-30] MEDS: METFORMIN HCL 500 MG TAB PO SCH ×2 (08:22→17:00)
[2021-11-30] MEDS: NYSTATIN PWDR 100000 UNIT/GM TOP SCH ×2 (08:23→19:54)
[2021-11-30] MEDS: MAGNESIUM OXIDE 400 MG TAB PO SCH ×2 (08:23→19:54)
[2021-11-30] MEDS: CELECOXIB 100 MG CAPSULE PO SCH (08:23)
[2021-11-30] MEDS: BIOTIN 500 MCG PO SCH (08:24)
[2021-11-30] MEDS: VITAMIN D3 PO SCH (08:24)
[2021-11-30] MEDS: K2 PO SCH (08:24)
--- NOTE | 2021-11-30 17:39 | R.PN ---
PROGRESS NOTES ENCOUNTER DATE AND TIME: 11/30/2021 17:34 (CDT) NAME SAY ADAMSON DATE OF : 1945 DATE OF ADMISSION: 11/18/2021 19:15 (RESPONDER) TOTAL RIGHT HIP ARTHROPLASTYCHIEF COMPLAINT: Right hip arthroplasty SUBJECTIVE: Pt denied any depression. Pt denied any Shortness of Breath. 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 Self-propelled wheelchair 130' with standby assistance. Ambulated 230' with standby assistance using a rolling walker. She has less pain in the right hip pain with therapy. However, she still has muscle spasms at night. VITAL SIGNS Temperature: 97.2 F SBP/DBP: 144/67 Pulse: 86 Resp: 16 MEDICATION ALLERGIES: IODINE LEVOFLOXACIN CANAGLIFLOZIN DULAGLUTIDE ENVIRONMENTAL ALLERGIES: - Substance Allergies None Known - Other Allergies None Known NURSING: - Shower allowing shower - Skin care per protocol PRECAUTIONS: - Posterior Hip Precaution No adduction across midline No external rotation No hip flexion >90 degrees No internal rotation No wheel chair propulsion - Weight Bearing Precaution WBAT right LE ACTIVITIES OOB only with supervision THERAPIES: - Dietary and Nutrition Adequate Nutrition. Nutritional Education. Nutritional Supplements. Evaluate and Treat. - Occupational Therapy Cognitive Retraining. Patient needs Occupational Therapy for a daily minimum of 1.5 hours at least 5 out of 7 days, to improve Activities of Daily Living, including: Eating, Grooming, Bathing, Dressing, Toileting, Toilet Transfers, Community Reintegration, Higher functional activities, Adaptive Equipme nt, Splinting, Household Tasks, and Other activities as determined. Visual Perceptual Training. Evalu ate and Treat. Safety Awareness. Patient/Family Education. Transfer Training. Adaptive Equipment. ADL Training. - Speech Therapy Speech Intelligibility Training. Evaluate and Treat. Cognitive Training. Receptive Language Skills. M james Strategies. - Physical Therapy Patient needs Physical Therapy for a daily minimum of 1.5 hours at least 5 out of 7 days, to improve: Mobility, Strengthening, Transfers, Stretching, ROM, Endurance, Ability to manage stairs, Gait, and Balance. Evaluate and Treat. Gait Training. Mobility Training. Safety Awareness. Balance Training. Tr ansfer Training. LE Strengthening. PHYSICAL EXAM - Gen Alert and awake Lying in bed No apparent distress Oriented to: person, time, and place - Skin No skin breakdown. Normacephalic - Eyes No abnormalities - ENMT No abnormalities - Neck No abnormalities - CVS RRR - Chest No abnormalities - Resp No wheezing - Abd Soft - GI Non distended Deferred - No abnormalities - Ext No significant edema - MSK 4+/5 weakness in both lower extremities. - Neuro No focal deficits - Psych No abnormalities ASSESSMENT: Pt. is a 76 yo Right-handed female.On 11/16/2021 she was admitted to [facility] with diagnosis TOTAL R IGHT HIP ARTHROPLASTY.Pt. was admitted to the hospital on 11/30/2021 and underwent Orthopaedic Disord ers(Unilateral Hip Replacement ()) by ISRAEL Escobar A MD without any intraoperative complications .Her impairment category is Orthopaedic Disorders 08 - Unilateral Hip Replacement ().Pre-morbid ly, Pt. was independent/mod-I in Locomotion, Safety Awareness, Social Cognition, and Balance; and she had good Transfers Control, Sphincter Control, Self-Care, Communication, and Endurance.Currently, sh e has deficits of Locomotion, Social Cognition, Safety Awareness, Balance, Sphincter Control, Self-Ca re, Transfers Control, Endurance, and Communication.Pt. is now referred to [facility] for acute in-patient rehabilitation in order to maximize patient's functional independence in activities of daily living, strength, ROM, and mobility.- Rehab Goal Patient has realistic goal of being discharged at assistance level 7-Ind to reside at Home with Fami ly/Relatives. MDM/PLAN: - Physical Therapy Decreased range of motion - to improve, our physical therapists will perform initial evaluation of p t's status upon admission and devise an individualized program for increasing patient's Range of Donny on. Gait dysfunction - to improve, our physical therapists will perform initial evaluation of pt's statu s upon admission and devise an individualized program for Gait Training, and Wheel Chair mobility Inability to transfer - to improve, our physical therapists will perform initial evaluation of pt's status upon admission and devise an individualized program for Bed mobility Need for home safety evaluation - to improve, our physical therapists will perform initial evaluatio n of pt's status upon admission and devise an individualized program for Home Evaluation Need in caregiver upon discharge - to improve, our physical therapists will perform initial evaluati on of pt's status upon admission and devise an individualized program for Caregiver Training New precaution - to improve, our physical therapists will perform initial evaluation of pt's status upon admission and devise an individualized program for Patient precaution education Edema - to improve, our physical therapists will perform initial evaluation of pt's status upon admi ssion and devise an individualized program for Elevation Training, and Lymphedema Therapy Poor balance - to improve, our physical therapists will perform initial evaluation of pt's status up on admission and devise an individualized program for Balance Training Poor endurance - to improve, our physical therapists will perform initial evaluation of pt's status upon admission and devise an individualized program for Endurance Training Weakness - to improve, our physical therapists will perform initial evaluation of pt's status upon a dmission and devise an individualized program for Aquatic Therapy, Neuromuscular Reeducation, and Str engthening Achieving independence - to improve, our physical therapists will perform initial evaluation of pt's status upon admission and devise an individualized program for Community Reintegration Activities - Occupational Therapy ADL deficits - to improve, our occupation therapists will perform initial evaluation of pt's status upon admission and devise an individualized program for Bathing, Bed mobility, Community Reintegratio n, Cooking, Dressing, Eating, Fine Motor Skills, Grooming, Homemaking, Kitchen Mobility, Laundry, Pat ient Education, Safety Awareness, Splinting - Positioning, Transfers(Toilet, Tub, Shower), and Wheel Chair Management Cognitive deficits - to improve, our occupation therapists will perform initial evaluation of pt's s tatus upon admission and devise an individualized program for Cognition - orientation Need for manager care - to improve, our occupation therapists will perform initial evaluation of pt's status upon admission and devise an individualized program for Caregiver Training Weakness - to improve, our occupation therapists will perform initial evaluation of pt's status upon admission and devise an individualized program for Aquatic Therapy, Balance, Endurance, UE ROM, and UE strengthening - Other See attached MAR (Medication Administration Record) - Anterior Hip Precaution No abduction No active extension No adduction across midline No external rotation No hip flexion >90 degrees No internal rotation - Diet - Liquid Texture Continue Regular - Tube Feed Continue N/A - Diet Type Continue Regular - Posterior Hip Precaution No adduction across midline No external rotation No hip flexion >90 degrees No internal rotation No wheel chair propulsion - Weight Bearing Precaution WBAT right LE - Skin care per protocol - Diet - Solid Texture Continue Regular - Shower allowing shower FUNCTIONAL STATUS: UPDATED AT WEEKLY TEAM CONFERENCE - Bladder Same accident frequency: 7-Ind - No accidents in the past 7 days - Bowel Same accident frequency: 7-Ind - No accidents in the past 7 days - Walking Same score based on distance walked: 0(N/A) Same score based on distance walked: 1(<=50ft) - Wheelchair Same score based on distance traveled: 0(N/A) FUNCTIONAL STATUS: - Self-Care A. Eating Ind B. Grooming Ind C. Bathing modA D. Dressing - Upper Silver E. Dressing - Lower modA F. Toileting modA - Sphincter Control G. Bladder control sup H. Bowel control sup - Transfers Control I. Bed/Chair/Wheelchair Silver J. Toilet Silver K. Tub/Shower modA - Locomotion L. Walk/Wheelchair (B) Silver M. Stairs maxA - Communication N. Comprehension (B) Steffen O. Expression (B) Steffen - Social Cognition P. Social Interaction Ind Q. Problem Solving Steffen R. Memory Steffen - Endurance Poor - Balance Fair - Safety Awareness Fair QI SCORES: - Self-Care A. Eating 03-Partial/moderate assistance B. Oral hygiene 02-Substantial/maximal assistance C. Toileting hygiene 02-Substantial/maximal assistance E. Shower/bathe self 02-Substantial/maximal assistance F. Upper body dressing 02-Substantial/maximal assistance G. Lower body dressing 88-Not attempted due to medical condition or safety concerns H. Putting on/taking off footwear 88-Not attempted due to medical condition or safety concerns - Mobility A. Roll left and right 03-Partial/moderate assistance B. Sit to lying 02-Substantial/maximal assistance C. Lying to sitting on side of bed 02-Substantial/maximal assistance D. Sit to stand 02-Substantial/maximal assistance E. Chair/[id number] transfer 02-Substantial/maximal assistance F. Toilet transfer 02-Substantial/maximal assistance G. Car transfer 88-Not attempted due to medical condition or safety concerns I. Walk 10 feet 88-Not attempted due to medical condition or safety concerns J. Walk 50 feet with two turns 88-Not attempted due to medical condition or safety concerns K. Walk 150 feet 88-Not attempted due to medical condition or safety concerns L. Walking 10 feet on uneven surfaces 88-Not attempted due to medical condition or safety concerns M. 1 step (curb) 88-Not attempted due to medical condition or safety concerns N. 4 steps 88-Not attempted due to medical condition or safety concerns O. 12 steps 88-Not attempted due to medical condition or safety concerns P. Picking up object 88-Not attempted due to medical condition or safety concerns R. Wheel 50 feet with two turns 88-Not attempted due to medical condition or safety concerns S. Wheel 150 feet 88-Not attempted due to medical condition or safety concerns - Bladder and Bowel Bladder continence Bowel continence - Endurance Fair - Balance Fair - Safety Awareness Fair CURRENT [facility]. DEFICITS: Self-Care, Mobility, Endurance, Balance, and Safety Awareness SIGNATURE PANEL: (CDT)
[2021-11-30] MEDS: SYSTANE LUBRICANT EYE OPTH SCH (19:54)
[2021-11-30] MEDS: VENLAFAXINE HCL 75 MG TABLET PO SCH (19:55)
[2021-11-30] MEDS: TAMSULOSIN 0.4 MG SR CAP PO SCH (19:55)
[2021-11-30] MEDS: ATORVASTATIN 20 MG TAB PO SCH (19:55)
[2021-12-01 04:39] LABS: Lymphocytes % 23.1 % (15.3-44.8); MPV 6.5 fL (7.6-11.3); RBC Red Blood Cell Count 3.07 M/uL (3.86-4.86)
[2021-12-01 05:01] LABS: Albumin 2.4 g/dL (3.4-5.0); Magnesium 1.9 mg/dL (1.8-2.4); Potassium 4.5 mmol/L (3.5-5.1); Prealbumin 13.9 mg/dL (20-40)
[2021-12-01] MEDS: LEVOTHYROXINE SOD 0.05 MG TABLET PO SCH (05:10)
[2021-12-01] MEDS: FLUTICASONE 50MCG NASAL SPRAY NAS SCH (06:26)
[2021-12-01] MEDS: PANTOPRAZOLE 40MG TABLET PO SCH (06:26)
[2021-12-01] MEDS: HYDROCODONE/APAP 5/325 MG TAB PO PRN ×2 (06:26→12:54)
[2021-12-01] MEDS: INSULIN -REGULAR HUMAN 50 UNIT/0.5 ML ML SQ SCH ×4 (07:30→20:57)
[2021-12-01] MEDS: POLYETHYL GLY 3350 17 GM/DOSE PO SCH (08:15)
[2021-12-01] MEDS: LIDOCAINE 4% PATCH TOP SCH (08:15)
[2021-12-01] MEDS: INSULIN 70/30 100 UNITS/ML SQ SCH ×2 (08:15→17:12)
[2021-12-01] MEDS: NYSTATIN PWDR 100000 UNIT/GM TOP SCH ×2 (08:16→19:46)
[2021-12-01] MEDS: lisinopriL 10 MG TAB PO SCH (08:24)
[2021-12-01] MEDS: MAGNESIUM OXIDE 400 MG TAB PO SCH ×2 (08:25→19:45)
[2021-12-01] MEDS: GABAPENTIN 300 MG CAP PO SCH ×2 (08:25→19:45)
[2021-12-01] MEDS: CELECOXIB 100 MG CAPSULE PO SCH (08:25)
[2021-12-01] MEDS: BACLOFEN 10 MG TAB PO SCH ×2 (08:25→19:45)
[2021-12-01] MEDS: FUROSEMIDE 20 MG TABLET PO SCH (08:25)
[2021-12-01] MEDS: VITAMIN D3 PO SCH (08:26)
[2021-12-01] MEDS: K2 PO SCH (08:26)
[2021-12-01] MEDS: POTASSIUM CL SA 10 MEQ TAB PO SCH (08:26)
[2021-12-01] MEDS: BIOTIN 500 MCG PO SCH (08:26)
[2021-12-01] MEDS: FERROUS SULFATE 325 MG TAB PO SCH (08:27)
[2021-12-01] MEDS: FE SULF/FA/VIT B COMP & C TAB PO SCH (08:27)
[2021-12-01] MEDS: OCUVITE (VIT A,C & E/LUTEIN/MINERAL) TABLET PO SCH (08:27)
[2021-12-01] MEDS: CRANBERRY FRUIT EXTRACT 400 MG CAP PO SCH ×2 (08:27→19:46)
[2021-12-01] MEDS: METFORMIN HCL 500 MG TAB PO SCH ×2 (08:27→17:12)
[2021-12-01] MEDS: RIVAROXABAN 10 MG TABLET PO SCH (08:27)
[2021-12-01] MEDS: COENZYME Q10- 200 MG CAP PO SCH (08:27)
[2021-12-01] MEDS: VITAMIN B COMPLEX 1 CAP PO SCH (08:27)
[2021-12-01 12:18] LABS: Urine Appearance CLOUDY (Clear); Urine Bacteria >50 /HPF (<20); Urine Bilirubin NEGATIVE (Negative); Urine Blood TRACE (Negative); Urine Color YELLOW (Yellow); Urine Glucose NEGATIVE (Negative); Urine Protein NEGATIVE (Negative); Urine RBC <5 /HPF (NONE SEEN); Urine Specific Gravity 1.015 (1.005-1.030); Urine Urobilinogen 0.2 mg/dL (0.2-1.0)
[2021-12-01] MEDS: SYSTANE LUBRICANT EYE OPTH SCH (19:46)
[2021-12-01] MEDS: TAMSULOSIN 0.4 MG SR CAP PO SCH (19:46)
[2021-12-01] MEDS: ATORVASTATIN 20 MG TAB PO SCH (19:46)
[2021-12-01] MEDS: VENLAFAXINE HCL 75 MG TABLET PO SCH (20:59)
[2021-12-01] MEDS ORDERED: VENLAFAXINE HCL 75 MG TABLET ONE (21:00)
[2021-12-02] MEDS: LEVOTHYROXINE SOD 0.05 MG TABLET PO SCH (05:24)
[2021-12-02] MEDS: LIDOCAINE 4% PATCH TOP SCH (06:30)
[2021-12-02] MEDS: FLUTICASONE 50MCG NASAL SPRAY NAS SCH (06:30)
[2021-12-02] MEDS: PANTOPRAZOLE 40MG TABLET PO SCH (06:31)
[2021-12-02] MEDS: NYSTATIN PWDR 100000 UNIT/GM TOP SCH ×2 (06:31→20:39)
[2021-12-02] MEDS: INSULIN -REGULAR HUMAN 50 UNIT/0.5 ML ML SQ SCH ×4 (07:30→20:39)
[2021-12-02] MEDS: INSULIN 70/30 100 UNITS/ML SQ SCH ×2 (07:56→17:14)
[2021-12-02] MEDS: FUROSEMIDE 20 MG TABLET PO SCH (07:57)
[2021-12-02] MEDS: POLYETHYL GLY 3350 17 GM/DOSE PO SCH (07:57)
[2021-12-02] MEDS: lisinopriL 10 MG TAB PO SCH (07:57)
[2021-12-02] MEDS: HYDROCODONE/APAP 5/325 MG TAB PO PRN (07:58)
[2021-12-02] MEDS: CELECOXIB 100 MG CAPSULE PO SCH (08:39)
[2021-12-02] MEDS: COENZYME Q10- 200 MG CAP PO SCH (08:39)
[2021-12-02] MEDS: GABAPENTIN 300 MG CAP PO SCH ×2 (08:39→20:39)
[2021-12-02] MEDS: BACLOFEN 10 MG TAB PO SCH ×2 (08:39→20:38)
[2021-12-02] MEDS: POTASSIUM CL SA 10 MEQ TAB PO SCH (08:40)
[2021-12-02] MEDS: CRANBERRY FRUIT EXTRACT 400 MG CAP PO SCH ×2 (08:40→20:39)
[2021-12-02] MEDS: MAGNESIUM OXIDE 400 MG TAB PO SCH ×2 (08:40→20:38)
[2021-12-02] MEDS: FERROUS SULFATE 325 MG TAB PO SCH (08:40)
[2021-12-02] MEDS: FE SULF/FA/VIT B COMP & C TAB PO SCH (08:40)
[2021-12-02] MEDS: VITAMIN B COMPLEX 1 CAP PO SCH (08:40)
[2021-12-02] MEDS: RIVAROXABAN 10 MG TABLET PO SCH (08:41)
[2021-12-02] MEDS: OCUVITE (VIT A,C & E/LUTEIN/MINERAL) TABLET PO SCH (08:41)
[2021-12-02] MEDS: METFORMIN HCL 500 MG TAB PO SCH ×2 (08:42→17:13)
[2021-12-02] MEDS: K2 PO SCH (08:44)
[2021-12-02] MEDS: BIOTIN 500 MCG PO SCH (08:44)
[2021-12-02] MEDS: VITAMIN D3 PO SCH (08:44)
--- NOTE | 2021-12-02 18:29 | R.PN ---
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 Pt denied any Shortness of Breath. 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 Urin e cultures show gram neg rods, sensitivity pending. Self-propelled wheelchair 50' with standby assistance. Ambulated 125' with standby assistance using a rolling walker. She has less pain in the right hip pain with therapy. However, she still has muscle spasms at night. Cognitive exercises done with 96 to 98 % accuracy. VITAL SIGNS Temperature: 97.8 F SBP/DBP: 147/74 Pulse: 79 Resp: 16 MEDICATION ALLERGIES: IODINE LEVOFLOXACIN CANAGLIFLOZIN DULAGLUTIDE ENVIRONMENTAL ALLERGIES: - Substance Allergies None Known - Other Allergies None Known NURSING: - Shower allowing shower - Skin care per protocol PRECAUTIONS: - Posterior Hip Precaution No adduction across midline No external rotation No hip flexion >90 degrees No internal rotation No wheel chair propulsion - Weight Bearing Precaution WBAT right LE ACTIVITIES OOB only with supervision THERAPIES: - Dietary and Nutrition Adequate Nutrition. Nutritional Education. Nutritional Supplements. Evaluate and Treat. - Occupational Therapy Cognitive Retraining. Patient needs Occupational Therapy for a daily minimum of 1.5 hours at least 5 out of 7 days, to improve Activities of Daily Living, including: Eating, Grooming, Bathing, Dressing, Toileting, Toilet Transfers, Community Reintegration, Higher functional activities, Adaptive Equipme nt, Splinting, Household Tasks, and Other activities as determined. Visual Perceptual Training. Evalu ate and Treat. Safety Awareness. Patient/Family Education. Transfer Training. Adaptive Equipment. ADL Training. - Speech Therapy Speech Intelligibility Training. Evaluate and Treat. Cognitive Training. Receptive Language Skills. M james Strategies. - Physical Therapy Patient needs Physical Therapy for a daily minimum of 1.5 hours at least 5 out of 7 days, to improve: Mobility, Strengthening, Transfers, Stretching, ROM, Endurance, Ability to manage stairs, Gait, and Balance. Evaluate and Treat. Gait Training. Mobility Training. Safety Awareness. Balance Training. Tr ansfer Training. LE Strengthening. PHYSICAL EXAM - Gen Alert and awake Lying in bed No apparent distress Oriented to: person, time, and place - Skin No skin breakdown. Normacephalic - Eyes No abnormalities - ENMT No abnormalities - Neck No abnormalities - CVS RRR - Chest No abnormalities - Resp No wheezing - Abd Soft - GI Non distended Deferred - No abnormalities - Ext No significant edema - MSK 4+/5 weakness in both lower extremities. - Neuro No focal deficits - Psych No abnormalities ASSESSMENT: Pt. is a 76 yo Right-handed female.On 11/16/2021 she was admitted to [facility] with diagnosis TOTAL R IGHT HIP ARTHROPLASTY.Pt. was admitted to the hospital on 12/02/2021 and underwent Orthopaedic Disord ers(Unilateral Hip Replacement ()) by ISRAEL Escobar MD without any intraoperative complications .Her impairment category is Orthopaedic Disorders 08 - Unilateral Hip Replacement ().Pre-morbid ly, Pt. was independent/mod-I in Locomotion, Safety Awareness, Social Cognition, and Balance; and she had good Transfers Control, Sphincter Control, Self-Care, Communication, and Endurance.Currently, sh e has deficits of Locomotion, Social Cognition, Safety Awareness, Balance, Sphincter Control, Self-Ca re, Transfers Control, Endurance, and Communication.Pt. is now referred to [facility] for acute in-patient rehabilitation in order to maximize patient's functional independence in activities of daily living, strength, ROM, and mobility.- Rehab Goal Patient has realistic goal of being discharged at assistance level 7-Ind to reside at Home with Fami ly/Relatives. MDM/PLAN: - Physical Therapy Decreased range of motion - to improve, our physical therapists will perform initial evaluation of p t's status upon admission and devise an individualized program for increasing patient's Range of Donny on. Gait dysfunction - to improve, our physical therapists will perform initial evaluation of pt's statu s upon admission and devise an individualized program for Gait Training, and Wheel Chair mobility Inability to transfer - to improve, our physical therapists will perform initial evaluation of pt's status upon admission and devise an individualized program for Bed mobility Need for home safety evaluation - to improve, our physical therapists will perform initial evaluatio n of pt's status upon admission and devise an individualized program for Home Evaluation Need in caregiver upon discharge - to improve, our physical therapists will perform initial evaluati on of pt's status upon admission and devise an individualized program for Caregiver Training New precaution - to improve, our physical therapists will perform initial evaluation of pt's status upon admission and devise an individualized program for Patient precaution education Edema - to improve, our physical therapists will perform initial evaluation of pt's status upon admi ssion and devise an individualized program for Elevation Training, and Lymphedema Therapy Poor balance - to improve, our physical therapists will perform initial evaluation of pt's status up on admission and devise an individualized program for Balance Training Poor endurance - to improve, our physical therapists will perform initial evaluation of pt's status upon admission and devise an individualized program for Endurance Training Weakness - to improve, our physical therapists will perform initial evaluation of pt's status upon a dmission and devise an individualized program for Aquatic Therapy, Neuromuscular Reeducation, and Str engthening Achieving independence - to improve, our physical therapists will perform initial evaluation of pt's status upon admission and devise an individualized program for Community Reintegration Activities - Occupational Therapy ADL deficits - to improve, our occupation therapists will perform initial evaluation of pt's status upon admission and devise an individualized program for Bathing, Bed mobility, Community Reintegratio n, Cooking, Dressing, Eating, Fine Motor Skills, Grooming, Homemaking, Kitchen Mobility, Laundry, Pat ient Education, Safety Awareness, Splinting - Positioning, Transfers(Toilet, Tub, Shower), and Wheel Chair Management Cognitive deficits - to improve, our occupation therapists will perform initial evaluation of pt's s tatus upon admission and devise an individualized program for Cognition - orientation Need for healthcare management - to improve, our occupation therapists will perform initial evaluation of pt's status upon admission and devise an individualized program for Caregiver Training Weakness - to improve, our occupation therapists will perform initial evaluation of pt's status upon admission and devise an individualized program for Aquatic Therapy, Balance, Endurance, UE ROM, and UE strengthening - Other See attached MAR (Medication Administration Record) - Anterior Hip Precaution No abduction No active extension No adduction across midline No external rotation No hip flexion >90 degrees No internal rotation - Diet - Liquid Texture Continue Regular - Tube Feed Continue N/A - Diet Type Continue Regular - Posterior Hip Precaution No adduction across midline No external rotation No hip flexion >90 degrees No internal rotation No wheel chair propulsion - Weight Bearing Precaution WBAT right LE - Skin care per protocol - Diet - Solid Texture Continue Regular - Shower allowing shower FUNCTIONAL STATUS: UPDATED AT WEEKLY TEAM CONFERENCE - Bladder Same accident frequency: 7-Ind - No accidents in the past 7 days - Bowel Same accident frequency: 7-Ind - No accidents in the past 7 days - Walking Same score based on distance walked: 0(N/A) Same score based on distance walked: 1(<=50ft) - Wheelchair Same score based on distance traveled: 0(N/A) FUNCTIONAL STATUS: - Self-Care A. Eating Ind B. Grooming Ind C. Bathing modA D. Dressing - Upper Silver E. Dressing - Lower modA F. Toileting modA - Sphincter Control G. Bladder control sup H. Bowel control sup - Transfers Control I. Bed/Chair/Wheelchair Silver J. Toilet Silver K. Tub/Shower modA - Locomotion L. Walk/Wheelchair (B) Silver M. Stairs maxA - Communication N. Comprehension (B) Steffen O. Expression (B) Steffen - Social Cognition P. Social Interaction Ind Q. Problem Solving Steffen R. Memory Steffen - Endurance Poor - Balance Fair - Safety Awareness Fair QI SCORES: - Self-Care A. Eating 03-Partial/moderate assistance B. Oral hygiene 02-Substantial/maximal assistance C. Toileting hygiene 02-Substantial/maximal assistance E. Shower/bathe self 02-Substantial/maximal assistance F. Upper body dressing 02-Substantial/maximal assistance G. Lower body dressing 88-Not attempted due to medical condition or safety concerns H. Putting on/taking off footwear 88-Not attempted due to medical condition or safety concerns - Mobility A. Roll left and right 03-Partial/moderate assistance B. Sit to lying 02-Substantial/maximal assistance C. Lying to sitting on side of bed 02-Substantial/maximal assistance D. Sit to stand 02-Substantial/maximal assistance E. Chair/[id number] transfer 02-Substantial/maximal assistance F. Toilet transfer 02-Substantial/maximal assistance G. Car transfer 88-Not attempted due to medical condition or safety concerns I. Walk 10 feet 88-Not attempted due to medical condition or safety concerns J. Walk 50 feet with two turns 88-Not attempted due to medical condition or safety concerns K. Walk 150 feet 88-Not attempted due to medical condition or safety concerns L. Walking 10 feet on uneven surfaces 88-Not attempted due to medical condition or safety concerns M. 1 step (curb) 88-Not attempted due to medical condition or safety concerns N. 4 steps 88-Not attempted due to medical condition or safety concerns O. 12 steps 88-Not attempted due to medical condition or safety concerns P. Picking up object 88-Not attempted due to medical condition or safety concerns R. Wheel 50 feet with two turns 88-Not attempted due to medical condition or safety concerns S. Wheel 150 feet 88-Not attempted due to medical condition or safety concerns - Bladder and Bowel Bladder continence Bowel continence - Endurance Fair - Balance Fair - Safety Awareness Fair [facility] DEFICITS: Self-Care, Mobility, Endurance, Balance, and Safety Awareness SIGNATURE PANEL: (CDT)
[2021-12-02] MEDS: SYSTANE LUBRICANT EYE OPTH SCH (20:38)
[2021-12-02] MEDS: TAMSULOSIN 0.4 MG SR CAP PO SCH (20:38)
[2021-12-02] MEDS: VENLAFAXINE HCL 75 MG TABLET PO SCH (20:38)
[2021-12-02] MEDS: ATORVASTATIN 20 MG TAB PO SCH (20:39)
[2021-12-03] MEDS: LEVOTHYROXINE SOD 0.05 MG TABLET PO SCH (05:11)
[2021-12-03] MEDS: LIDOCAINE 4% PATCH TOP SCH (06:21)
[2021-12-03] MEDS: PANTOPRAZOLE 40MG TABLET PO SCH (06:21)
[2021-12-03] MEDS: FLUTICASONE 50MCG NASAL SPRAY NAS SCH (06:22)
[2021-12-03] MEDS: HYDROCODONE/APAP 5/325 MG TAB PO PRN (06:24)
[2021-12-03] MEDS: NYSTATIN PWDR 100000 UNIT/GM TOP SCH ×2 (06:29→20:33)
[2021-12-03] MEDS ORDERED: LIDOCAINE 4% PATCH TOP ONE (07:00)
[2021-12-03] MEDS: INSULIN -REGULAR HUMAN 50 UNIT/0.5 ML ML SQ SCH ×4 (07:30→20:34)
[2021-12-03] MEDS: INSULIN 70/30 100 UNITS/ML SQ SCH ×2 (07:45→16:55)
[2021-12-03] MEDS: MAGNESIUM OXIDE 400 MG TAB PO SCH ×2 (07:46→20:32)
[2021-12-03] MEDS: lisinopriL 10 MG TAB PO SCH (07:55)
[2021-12-03] MEDS: BACLOFEN 10 MG TAB PO SCH ×2 (07:55→20:32)
[2021-12-03] MEDS: GABAPENTIN 300 MG CAP PO SCH ×2 (07:55→20:33)
[2021-12-03] MEDS: CELECOXIB 100 MG CAPSULE PO SCH (07:55)
[2021-12-03] MEDS: K2 PO SCH (07:56)
[2021-12-03] MEDS: FUROSEMIDE 20 MG TABLET PO SCH (07:56)
[2021-12-03] MEDS: VITAMIN D3 PO SCH (07:56)
[2021-12-03] MEDS: BIOTIN 500 MCG PO SCH (07:56)
[2021-12-03] MEDS: METFORMIN HCL 500 MG TAB PO SCH ×2 (07:57→16:57)
[2021-12-03] MEDS: RIVAROXABAN 10 MG TABLET PO SCH (07:57)
[2021-12-03] MEDS: VITAMIN B COMPLEX 1 CAP PO SCH (07:57)
[2021-12-03] MEDS: POTASSIUM CL SA 10 MEQ TAB PO SCH (07:57)
[2021-12-03] MEDS: FERROUS SULFATE 325 MG TAB PO SCH (07:58)
[2021-12-03] MEDS: COENZYME Q10- 200 MG CAP PO SCH (07:58)
[2021-12-03] MEDS: FE SULF/FA/VIT B COMP & C TAB PO SCH (07:58)
[2021-12-03] MEDS: OCUVITE (VIT A,C & E/LUTEIN/MINERAL) TABLET PO SCH (07:58)
[2021-12-03] MEDS: CRANBERRY FRUIT EXTRACT 400 MG CAP PO SCH ×2 (07:58→20:31)
[2021-12-03] MEDS: POLYETHYL GLY 3350 17 GM/DOSE PO SCH (08:00)
--- NOTE | 2021-12-03 10:04 | P.RH.PN ---
Estimated Length of Stay: 22 Expected Discharge Date: 12/10/21 Discharge Disposition Plan: Home Family Support: Yes Senior Living Goal: Mobility, Transfers, Self Care Vital Signs: Last Vital Signs Temp 98.0 F 12/03/21 08:00 Pulse 86 12/03/21 08:00 Resp 18 12/03/21 08:00 BP 159/77 H 12/03/21 08:00 Pulse Ox 95 12/03/21 08:00 Laboratory: Laboratory Last Values WBC 8.80 K/uL (4.3-10.9) 12/01/21 04:31 RBC 3.07 M/uL (3.86-4.86) L 12/01/21 04:31 Hgb 8.8 g/dL (12.0-15.0) L 12/01/21 04:31 Hct 27.0 % (36.0-45.0) L 12/01/21 04:31 MCV 87.8 fL (80-100) 12/01/21 04:31 MCH 28.8 pg (27.0-35.0) 12/01/21 04:31 MCHC 32.8 g/dL (32.0-36.0) 12/01/21 04:31 RDW 14.8 % (12.1-15.2) 12/01/21 04:31 Plt Count 401 K/uL (152-406) 12/01/21 04:31 MPV 6.5 fL (7.6-11.3) L 12/01/21 04:31 Neutrophils % 64.6 % (41.7-73.7) 12/01/21 04:31 Lymphocytes % 23.1 % (15.3-44.8) 12/01/21 04:31 Monocytes % 7.7 % (3.3-12.3) 12/01/21 04:31 Eosinophils % 4.1 % (0-4.4) 12/01/21 04:31 Basophils % 0.5 % (0-1.3) 12/01/21 04:31 Absolute Neutrophils 5.7 K/uL (1.8-8.0) 12/01/21 04:31 Absolute Lymphocytes 2.0 K/uL (0.7-4.9) 12/01/21 04:31 Absolute Monocytes 0.7 K/uL (0.1-1.3) 12/01/21 04:31 Absolute Eosinophils 0.4 K/uL (0-0.5) 12/01/21 04:31 Absolute Basophils 0.0 K/uL (0-0.5) 12/01/21 04:31 Sodium 142 mmol/L (136-145) 12/01/21 04:31 Potassium 4.5 mmol/L (3.5-5.1) 12/01/21 04:31 Chloride 108 mmol/L (98-107) H 12/01/21 04:31 Carbon Dioxide 28 mmol/L (21-32) 12/01/21 04:31 BUN 14 mg/dL (7-18) 12/01/21 04:31 Creatinine 0.71 mg/dL (0.55-1.3) 12/01/21 04:31 Estimated GFR 80 mL/min (=/>90) L 12/01/21 04:31 Glucose 138 mg/dL (74-106) H 12/01/21 04:31 POC Glucose 158 mg/dL (65-120) H 12/03/21 06:14 Calcium 8.5 mg/dL (8.5-10.1) 12/01/21 04:31 Phosphorus 3.8 mg/dL (2.5-4.9) 11/19/21 05:43 Magnesium 1.9 mg/dL (1.8-2.4) 12/01/21 04:31 Albumin 2.4 g/dL (3.4-5.0) L 12/01/21 04:31 Prealbumin 13.9 mg/dL (20-40) L 12/01/21 04:31 Urine Color Yellow (Yellow) 12/01/21 11:10 Urine Appearance Cloudy (Clear) 12/01/21 11:10 Urine pH 7.0 (5.0-7.0) 12/01/21 11:10 Ur Specific [place] 1.015 (1.005-1.030) 12/01/21 11:10 Glucose (UA)(Auto) Negative (Negative) 12/01/21 11:10 Urine Ketones Negative (Negative) 12/01/21 11:10 Urine Blood Trace (Negative) H 12/01/21 11:10 Urine Nitrite Positive (Negative) H 12/01/21 11:10 Urine Bilirubin Negative (Negative) 12/01/21 11:10 Urine Urobilinogen 0.2 mg/dL (0.2-1.0) 12/01/21 11:10 Ur Leukocyte Esterase 3+ (Negative) H 12/01/21 11:10 Urine RBC <5 /HPF (NONE SEEN) 12/01/21 11:10 Urine WBC >50 /HPF (<5) H 12/01/21 11:10 Ur Squamous Epith Cells 10-20 /HPF (NONE SEEN) H 12/01/21 11:10 Urine Bacteria >50 /HPF (<20) H 12/01/21 11:10 Ur Microscopic Review Cancelled 11/18/21 22:43 Urine Culture Reflexed Not needed 12/01/21 11:10 Urine Total Protein Negative (Negative) 12/01/21 11:10 SARS-CoV-2 Rap RNA(RT-PCR) Negative (NEGATIVE) 12/02/21 04:40 ABO/Rh O POSITIVE 11/19/21 10:26 Solid Phase Ab Screen Negative 11/19/21 10:26 Crossmatch See Detail 11/19/21 10:26 Weight: 182 lb 4.8 oz Wound Present: No Closed Surgical Incision Present: Yes Negative Pressure Wound Therapy Present: No Physician Update: Moderate assistance with transfers, min assistance with bed mobility. Walking 150' with SBA, wheelchair mobilization 150' with minimum assistance. She becomes anxious. Improved attention and problem solving. Functional Improvement: Pt. physically is capable of completing tasks w/ increased ability, however is self limiting by anxiety, apprehension, and therapist that she was working w/. Summary: Patient's care plan and superintendent terminal goals have been reviewed and revised as necessary. Please see the Rehabilitation Signature page for all necessary signatures.
[2021-12-03] MEDS: TAMSULOSIN 0.4 MG SR CAP PO SCH (20:32)
[2021-12-03] MEDS: ATORVASTATIN 20 MG TAB PO SCH (20:32)
[2021-12-03] MEDS: VENLAFAXINE HCL 75 MG TABLET PO SCH (20:32)
[2021-12-03] MEDS: SYSTANE LUBRICANT EYE OPTH SCH (20:33)
[2021-12-03] MEDS ORDERED: Meropenem 1000 MG/VIAL IV ONE (22:16)
[2021-12-03] MEDS ORDERED: NA CHLORIDE 0.9% 0 ML ONE (22:19)
[2021-12-03] MEDS ORDERED: NA CHLORIDE 0.9% 100 ML ONE (22:22)
[2021-12-03] MEDS: Meropenem 1,000 MG in NA CHLORIDE 0.9% 100 ML IV SCH (22:30)
[2021-12-04] MEDS: LEVOTHYROXINE SOD 0.05 MG TABLET PO SCH (05:07)
[2021-12-04] MEDS: INSULIN -REGULAR HUMAN 50 UNIT/0.5 ML ML SQ SCH ×4 (07:13→20:24)
[2021-12-04] MEDS: POLYETHYL GLY 3350 17 GM/DOSE PO SCH ×2 (08:00)
[2021-12-04] MEDS: INSULIN 70/30 100 UNITS/ML SQ SCH ×2 (08:05→16:35)
[2021-12-04] MEDS: BIOTIN 500 MCG PO SCH (08:06)
[2021-12-04] MEDS: Meropenem 1,000 MG in NA CHLORIDE 0.9% 100 ML IV SCH ×2 (08:06→19:38)
[2021-12-04] MEDS: FLUTICASONE 50MCG NASAL SPRAY NAS SCH (08:07)
[2021-12-04] MEDS: BACLOFEN 10 MG TAB PO SCH ×2 (08:07→19:39)
[2021-12-04] MEDS: COENZYME Q10- 200 MG CAP PO SCH (08:07)
[2021-12-04] MEDS: K2 PO SCH (08:07)
[2021-12-04] MEDS: VITAMIN D3 PO SCH (08:07)
[2021-12-04] MEDS: POTASSIUM CL SA 10 MEQ TAB PO SCH (08:08)
[2021-12-04] MEDS: VITAMIN B COMPLEX 1 CAP PO SCH (08:08)
[2021-12-04] MEDS: CELECOXIB 100 MG CAPSULE PO SCH (08:08)
[2021-12-04] MEDS: FUROSEMIDE 20 MG TABLET PO SCH (08:08)
[2021-12-04] MEDS: RIVAROXABAN 10 MG TABLET PO SCH (08:08)
[2021-12-04] MEDS: METFORMIN HCL 500 MG TAB PO SCH ×2 (08:09→16:35)
[2021-12-04] MEDS: FERROUS SULFATE 325 MG TAB PO SCH (08:09)
[2021-12-04] MEDS: OCUVITE (VIT A,C & E/LUTEIN/MINERAL) TABLET PO SCH (08:09)
[2021-12-04] MEDS: PANTOPRAZOLE 40MG TABLET PO SCH (08:10)
[2021-12-04] MEDS: CRANBERRY FRUIT EXTRACT 400 MG CAP PO SCH ×2 (08:11→19:40)
[2021-12-04] MEDS: GABAPENTIN 300 MG CAP PO SCH ×2 (08:11→19:40)
[2021-12-04] MEDS: lisinopriL 10 MG TAB PO SCH (08:11)
[2021-12-04] MEDS: FE SULF/FA/VIT B COMP & C TAB PO SCH (08:11)
[2021-12-04] MEDS: MAGNESIUM OXIDE 400 MG TAB PO SCH ×2 (08:11→19:41)
[2021-12-04] MEDS: NYSTATIN PWDR 100000 UNIT/GM TOP SCH ×2 (08:12→19:45)
[2021-12-04] MEDS: LIDOCAINE 4% PATCH TOP SCH (08:14)
[2021-12-04] MEDS: HYDROCODONE/APAP 5/325 MG TAB PO PRN (08:28)
--- NOTE | 2021-12-04 15:17 | R.PN ---
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 Pt denied any Shortness of Breath. WBC 8.8, Hgb 8.8, glu 142 to 203, Dining Room Manager 0.68, prealbumin 11.5, UA is normal, covid-19 is negative. Urin e cultures show gram neg rods, sensitivity pending. Ambulated 250' with contact guard assistance using a rolling walker. She has less pain in the right hip pain with therapy. However, she still has muscle spasms at night. Cognitive exercises done with 96 to 98 % accuracy. VITAL SIGNS Temperature: 98.2 F SBP/DBP: 151/66 Pulse: 76 Resp: 15 MEDICATION ALLERGIES: IODINE LEVOFLOXACIN CANAGLIFLOZIN DULAGLUTIDE ENVIRONMENTAL ALLERGIES: - Substance Allergies None Known - Other Allergies None Known NURSING: - Shower allowing shower - Skin care per protocol PRECAUTIONS: - Posterior Hip Precaution No adduction across midline No external rotation No hip flexion >90 degrees No internal rotation No wheel chair propulsion - Weight Bearing Precaution WBAT right LE ACTIVITIES OOB only with supervision THERAPIES: - Dietary and Nutrition Adequate Nutrition. Nutritional Education. Nutritional Supplements. Evaluate and Treat. - Occupational Therapy Cognitive Retraining. Patient needs Occupational Therapy for a daily minimum of 1.5 hours at least 5 out of 7 days, to improve Activities of Daily Living, including: Eating, Grooming, Bathing, Dressing, Toileting, Toilet Transfers, Community Reintegration, Higher functional activities, Adaptive Equipme nt, Splinting, Household Tasks, and Other activities as determined. Visual Perceptual Training. Evalu ate and Treat. Safety Awareness. Patient/Family Education. Transfer Training. Adaptive Equipment. ADL Training. - Speech Therapy Speech Intelligibility Training. Evaluate and Treat. Cognitive Training. Receptive Language Skills. M james Strategies. - Physical Therapy Patient needs Physical Therapy for a daily minimum of 1.5 hours at least 5 out of 7 days, to improve: Mobility, Strengthening, Transfers, Stretching, ROM, Endurance, Ability to manage stairs, Gait, and Balance. Evaluate and Treat. Gait Training. Mobility Training. Safety Awareness. Balance Training. Tr ansfer Training. LE Strengthening. PHYSICAL EXAM - Gen Alert and awake Lying in bed No apparent distress Oriented to: person, time, and place - Skin No skin breakdown. Normacephalic - Eyes No abnormalities - ENMT No abnormalities - Neck No abnormalities - CVS RRR - Chest No abnormalities - Resp No wheezing - Abd Soft - GI Non distended Deferred - No abnormalities - Ext No significant edema - MSK 4+/5 weakness in both lower extremities. - Neuro No focal deficits - Psych No abnormalities ASSESSMENT: Pt. is a 76 yo Right-handed female.On 11/16/2021 she was admitted to [facility] with diagnosis TOTAL R IGHT HIP ARTHROPLASTY.Pt. was admitted to the hospital on 12/04/2021 and underwent Orthopaedic Disord ers(Unilateral Hip Replacement ()) by ISRAEL Escobar A MD without any intraoperative complications .Her impairment category is Orthopaedic Disorders 08 - Unilateral Hip Replacement ().Pre-morbid ly, Pt. was independent/mod-I in Locomotion, Safety Awareness, Social Cognition, and Balance; and she had good Transfers Control, Sphincter Control, Self-Care, Communication, and Endurance.Currently, sh e has deficits of Locomotion, Social Cognition, Safety Awareness, Balance, Sphincter Control, Self-Ca re, Transfers Control, Endurance, and Communication.Pt. is now referred to [facility] for acute in-patient rehabilitation in order to maximize patient's functional independence in activities of daily living, strength, ROM, and mobility.- Rehab Goal Patient has realistic goal of being discharged at assistance level 7-Ind to reside at Home with Fami ly/Relatives. MDM/PLAN: - Physical Therapy Decreased range of motion - to improve, our physical therapists will perform initial evaluation of p t's status upon admission and devise an individualized program for increasing patient's Range of Donny on. Gait dysfunction - to improve, our physical therapists will perform initial evaluation of pt's statu s upon admission and devise an individualized program for Gait Training, and Wheel Chair mobility Inability to transfer - to improve, our physical therapists will perform initial evaluation of pt's status upon admission and devise an individualized program for Bed mobility Need for home safety evaluation - to improve, our physical therapists will perform initial evaluatio n of pt's status upon admission and devise an individualized program for Home Evaluation Need in caregiver upon discharge - to improve, our physical therapists will perform initial evaluati on of pt's status upon admission and devise an individualized program for Caregiver Training New precaution - to improve, our physical therapists will perform initial evaluation of pt's status upon admission and devise an individualized program for Patient precaution education Edema - to improve, our physical therapists will perform initial evaluation of pt's status upon admi ssion and devise an individualized program for Elevation Training, and Lymphedema Therapy Poor balance - to improve, our physical therapists will perform initial evaluation of pt's status up on admission and devise an individualized program for Balance Training Poor endurance - to improve, our physical therapists will perform initial evaluation of pt's status upon admission and devise an individualized program for Endurance Training Weakness - to improve, our physical therapists will perform initial evaluation of pt's status upon a dmission and devise an individualized program for Aquatic Therapy, Neuromuscular Reeducation, and Str engthening Achieving independence - to improve, our physical therapists will perform initial evaluation of pt's status upon admission and devise an individualized program for Community Reintegration Activities - Occupational Therapy ADL deficits - to improve, our occupation therapists will perform initial evaluation of pt's status upon admission and devise an individualized program for Bathing, Bed mobility, Community Reintegratio n, Cooking, Dressing, Eating, Fine Motor Skills, Grooming, Homemaking, Kitchen Mobility, Laundry, Pat ient Education, Safety Awareness, Splinting - Positioning, Transfers(Toilet, Tub, Shower), and Wheel Chair Management Cognitive deficits - to improve, our occupation therapists will perform initial evaluation of pt's s tatus upon admission and devise an individualized program for Cognition - orientation Need for client care representative - to improve, our occupation therapists will perform initial evaluation of pt's status upon admission and devise an individualized program for Caregiver Training Weakness - to improve, our occupation therapists will perform initial evaluation of pt's status upon admission and devise an individualized program for Aquatic Therapy, Balance, Endurance, UE ROM, and UE strengthening - Other See attached MAR (Medication Administration Record) - Anterior Hip Precaution No abduction No active extension No adduction across midline No external rotation No hip flexion >90 degrees No internal rotation - Diet - Liquid Texture Continue Regular - Tube Feed Continue N/A - Diet Type Continue Regular - Posterior Hip Precaution No adduction across midline No external rotation No hip flexion >90 degrees No internal rotation No wheel chair propulsion - Weight Bearing Precaution WBAT right LE - Skin care per protocol - Diet - Solid Texture Continue Regular - Shower allowing shower FUNCTIONAL STATUS: UPDATED AT WEEKLY TEAM CONFERENCE - Bladder Same accident frequency: 7-Ind - No accidents in the past 7 days - Bowel Same accident frequency: 7-Ind - No accidents in the past 7 days - Walking Same score based on distance walked: 0(N/A) Same score based on distance walked: 1(<=50ft) - Wheelchair Same score based on distance traveled: 0(N/A) FUNCTIONAL STATUS: - Self-Care A. Eating Ind B. Grooming Ind C. Bathing modA D. Dressing - Upper Silver E. Dressing - Lower modA F. Toileting modA - Sphincter Control G. Bladder control sup H. Bowel control sup - Transfers Control I. Bed/Chair/Wheelchair Silver J. Toilet Silver K. Tub/Shower modA - Locomotion L. Walk/Wheelchair (B) Silver M. Stairs maxA - Communication N. Comprehension (B) Steffen O. Expression (B) Steffen - Social Cognition P. Social Interaction Ind Q. Problem Solving Steffen R. Memory Steffen - Endurance Poor - Balance Fair - Safety Awareness Fair QI SCORES: - Self-Care A. Eating 03-Partial/moderate assistance B. Oral hygiene 02-Substantial/maximal assistance C. Toileting hygiene 02-Substantial/maximal assistance E. Shower/bathe self 02-Substantial/maximal assistance F. Upper body dressing 02-Substantial/maximal assistance G. Lower body dressing 88-Not attempted due to medical condition or safety concerns H. Putting on/taking off footwear 88-Not attempted due to medical condition or safety concerns - Mobility A. Roll left and right 03-Partial/moderate assistance B. Sit to lying 02-Substantial/maximal assistance C. Lying to sitting on side of bed 02-Substantial/maximal assistance D. Sit to stand 02-Substantial/maximal assistance E. Chair/[id number]-gmdry transfer 02-Substantial/maximal assistance F. Toilet transfer 02-Substantial/maximal assistance G. Car transfer 88-Not attempted due to medical condition or safety concerns I. Walk 10 feet 88-Not attempted due to medical condition or safety concerns J. Walk 50 feet with two turns 88-Not attempted due to medical condition or safety concerns K. Walk 150 feet 88-Not attempted due to medical condition or safety concerns L. Walking 10 feet on uneven surfaces 88-Not attempted due to medical condition or safety concerns M. 1 step (curb) 88-Not attempted due to medical condition or safety concerns N. 4 steps 88-Not attempted due to medical condition or safety concerns O. 12 steps 88-Not attempted due to medical condition or safety concerns P. Picking up object 88-Not attempted due to medical condition or safety concerns R. Wheel 50 feet with two turns 88-Not attempted due to medical condition or safety concerns S. Wheel 150 feet 88-Not attempted due to medical condition or safety concerns - Bladder and Bowel Bladder continence Bowel continence - Endurance Fair - Balance Fair - Safety Awareness Fair CURRENT [facility]. DEFICITS: Self-Care, Mobility, Endurance, Balance, and Safety Awareness SIGNATURE PANEL: (CDT)
[2021-12-04] MEDS: ATORVASTATIN 20 MG TAB PO SCH (19:39)
[2021-12-04] MEDS: VENLAFAXINE HCL 75 MG TABLET PO SCH (19:40)
[2021-12-04] MEDS: TAMSULOSIN 0.4 MG SR CAP PO SCH (19:40)
[2021-12-04] MEDS: SYSTANE LUBRICANT EYE OPTH SCH (19:43)
[2021-12-05] MEDS: LEVOTHYROXINE SOD 0.05 MG TABLET PO SCH (06:41)
[2021-12-05] MEDS: INSULIN -REGULAR HUMAN 50 UNIT/0.5 ML ML SQ SCH ×4 (07:24→19:37)
[2021-12-05] MEDS: INSULIN 70/30 100 UNITS/ML SQ SCH ×2 (07:48→16:18)
[2021-12-05] MEDS: FERROUS SULFATE 325 MG TAB PO SCH (07:49)
[2021-12-05] MEDS: OCUVITE (VIT A,C & E/LUTEIN/MINERAL) TABLET PO SCH (07:49)
[2021-12-05] MEDS: FE SULF/FA/VIT B COMP & C TAB PO SCH (07:49)
[2021-12-05] MEDS: CRANBERRY FRUIT EXTRACT 400 MG CAP PO SCH ×2 (07:49→19:32)
[2021-12-05] MEDS: lisinopriL 10 MG TAB PO SCH (07:49)
[2021-12-05] MEDS: POLYETHYL GLY 3350 17 GM/DOSE PO SCH (07:49)
[2021-12-05] MEDS: NYSTATIN PWDR 100000 UNIT/GM TOP SCH ×2 (07:49→19:37)
[2021-12-05] MEDS: CELECOXIB 100 MG CAPSULE PO SCH (07:50)
[2021-12-05] MEDS: BACLOFEN 10 MG TAB PO SCH ×2 (07:50→19:32)
[2021-12-05] MEDS: POTASSIUM CL SA 10 MEQ TAB PO SCH (07:50)
[2021-12-05] MEDS: MAGNESIUM OXIDE 400 MG TAB PO SCH ×2 (07:50→19:34)
[2021-12-05] MEDS: RIVAROXABAN 10 MG TABLET PO SCH (07:51)
[2021-12-05] MEDS: FUROSEMIDE 20 MG TABLET PO SCH (07:51)
[2021-12-05] MEDS: METFORMIN HCL 500 MG TAB PO SCH ×2 (07:51→16:19)
[2021-12-05] MEDS: COENZYME Q10- 200 MG CAP PO SCH (07:51)
[2021-12-05] MEDS: GABAPENTIN 300 MG CAP PO SCH ×2 (07:51→19:35)
[2021-12-05] MEDS: PANTOPRAZOLE 40MG TABLET PO SCH (07:51)
[2021-12-05] MEDS: VITAMIN B COMPLEX 1 CAP PO SCH (07:51)
[2021-12-05] MEDS: K2 PO SCH (07:52)
[2021-12-05] MEDS: FLUTICASONE 50MCG NASAL SPRAY NAS SCH (07:52)
[2021-12-05] MEDS: BIOTIN 500 MCG PO SCH (07:52)
[2021-12-05] MEDS: VITAMIN D3 PO SCH (07:52)
[2021-12-05] MEDS: Meropenem 1,000 MG in NA CHLORIDE 0.9% 100 ML IV SCH ×2 (07:53→19:31)
[2021-12-05] MEDS: LIDOCAINE 4% PATCH TOP SCH (07:53)
[2021-12-05] MEDS: SYSTANE LUBRICANT EYE OPTH SCH (19:30)
[2021-12-05] MEDS: TAMSULOSIN 0.4 MG SR CAP PO SCH (19:32)
[2021-12-05] MEDS: VENLAFAXINE HCL 75 MG TABLET PO SCH (19:32)
[2021-12-05] MEDS: HYDROCODONE/APAP 5/325 MG TAB PO PRN (19:33)
[2021-12-05] MEDS: ATORVASTATIN 20 MG TAB PO SCH (19:35)
[2021-12-06] MEDS: LEVOTHYROXINE SOD 0.05 MG TABLET PO SCH (05:02)
[2021-12-06] MEDS: Meropenem 1,000 MG in NA CHLORIDE 0.9% 100 ML IV SCH ×2 (06:57→20:18)
[2021-12-06] MEDS: BIOTIN 500 MCG PO SCH (06:57)
[2021-12-06] MEDS: LIDOCAINE 4% PATCH TOP SCH (06:58)
[2021-12-06] MEDS: VITAMIN D3 PO SCH (06:58)
[2021-12-06] MEDS: K2 PO SCH (06:58)
[2021-12-06] MEDS: FLUTICASONE 50MCG NASAL SPRAY NAS SCH (06:58)
[2021-12-06] MEDS: CELECOXIB 100 MG CAPSULE PO SCH (06:59)
[2021-12-06] MEDS: GABAPENTIN 300 MG CAP PO SCH ×2 (06:59→20:19)
[2021-12-06] MEDS: MAGNESIUM OXIDE 400 MG TAB PO SCH ×2 (06:59→20:20)
[2021-12-06] MEDS: RIVAROXABAN 10 MG TABLET PO SCH (06:59)
[2021-12-06] MEDS: INSULIN 70/30 100 UNITS/ML SQ SCH ×2 (06:59→16:41)
[2021-12-06] MEDS: FUROSEMIDE 20 MG TABLET PO SCH (06:59)
[2021-12-06] MEDS: HYDROCODONE/APAP 5/325 MG TAB PO PRN (07:00)
[2021-12-06] MEDS: COENZYME Q10- 200 MG CAP PO SCH (07:00)
[2021-12-06] MEDS: POTASSIUM CL SA 10 MEQ TAB PO SCH (07:00)
[2021-12-06] MEDS: BACLOFEN 10 MG TAB PO SCH ×2 (07:00→20:19)
[2021-12-06] MEDS: FE SULF/FA/VIT B COMP & C TAB PO SCH (07:00)
[2021-12-06] MEDS: FERROUS SULFATE 325 MG TAB PO SCH (07:00)
[2021-12-06] MEDS: VITAMIN B COMPLEX 1 CAP PO SCH (07:00)
[2021-12-06] MEDS: CRANBERRY FRUIT EXTRACT 400 MG CAP PO SCH ×2 (07:00→20:19)
[2021-12-06] MEDS: NYSTATIN PWDR 100000 UNIT/GM TOP SCH ×2 (07:00→20:20)
[2021-12-06] MEDS: PANTOPRAZOLE 40MG TABLET PO SCH (07:00)
[2021-12-06] MEDS: OCUVITE (VIT A,C & E/LUTEIN/MINERAL) TABLET PO SCH (07:00)
[2021-12-06] MEDS: METFORMIN HCL 500 MG TAB PO SCH ×2 (07:00→16:41)
[2021-12-06] MEDS: lisinopriL 10 MG TAB PO SCH (07:00)
[2021-12-06] MEDS: POLYETHYL GLY 3350 17 GM/DOSE PO SCH (07:01)
[2021-12-06] MEDS: INSULIN -REGULAR HUMAN 50 UNIT/0.5 ML ML SQ SCH ×4 (07:08→20:20)
--- NOTE | 2021-12-06 18:02 | R.PN ---
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 Pt denied any Shortness of Breath. WBC 8.8, Hgb 8.8, glu 127 to 159, Bull Ladle Tender 0.68, prealbumin 11.5, UA is normal, covid-19 is negative. Urin e cultures show gram neg rods, sensitivity pending. She has less pain in the right hip pain with therapy. She has less muscle spasms at night. Cognitive exercises done with 96 to 98 % accuracy. She had a marked drop in blood pressure on standing to 89/46 with pulse 86. She was symptomatic. Whee lchair mobilization was done with minimum assistance. VITAL SIGNS Temperature: 97.3 F SBP/DBP: 142/55 Pulse: 80 Resp: 16 MEDICATION ALLERGIES: IODINE LEVOFLOXACIN CANAGLIFLOZIN DULAGLUTIDE ENVIRONMENTAL ALLERGIES: - Substance Allergies None Known - Other Allergies None Known NURSING: - Shower allowing shower - Skin care per protocol PRECAUTIONS: - Posterior Hip Precaution No adduction across midline No external rotation No hip flexion >90 degrees No internal rotation No wheel chair propulsion - Weight Bearing Precaution WBAT right LE ACTIVITIES OOB only with supervision THERAPIES: - Dietary and Nutrition Adequate Nutrition. Nutritional Education. Nutritional Supplements. Evaluate and Treat. - Occupational Therapy Cognitive Retraining. Patient needs Occupational Therapy for a daily minimum of 1.5 hours at least 5 out of 7 days, to improve Activities of Daily Living, including: Eating, Grooming, Bathing, Dressing, Toileting, Toilet Transfers, Community Reintegration, Higher functional activities, Adaptive Equipme nt, Splinting, Household Tasks, and Other activities as determined. Visual Perceptual Training. Evalu ate and Treat. Safety Awareness. Patient/Family Education. Transfer Training. Adaptive Equipment. ADL Training. - Speech Therapy Speech Intelligibility Training. Evaluate and Treat. Cognitive Training. Receptive Language Skills. M james Strategies. - Physical Therapy Patient needs Physical Therapy for a daily minimum of 1.5 hours at least 5 out of 7 days, to improve: Mobility, Strengthening, Transfers, Stretching, ROM, Endurance, Ability to manage stairs, Gait, and Balance. Evaluate and Treat. Gait Training. Mobility Training. Safety Awareness. Balance Training. Tr ansfer Training. LE Strengthening. PHYSICAL EXAM - Gen Alert and awake Lying in bed No apparent distress Oriented to: person, time, and place - Skin No skin breakdown. Normacephalic - Eyes No abnormalities - ENMT No abnormalities - Neck No abnormalities - CVS RRR - Chest No abnormalities - Resp No wheezing - Abd Soft - GI Non distended Deferred - No abnormalities - Ext No significant edema - MSK 4+/5 weakness in both lower extremities. - Neuro No focal deficits - Psych No abnormalities ASSESSMENT: Pt. is a 76 yo Right-handed female.On 11/16/2021 she was admitted to [facility] with diagnosis TOTAL R IGHT HIP ARTHROPLASTY.Pt. was admitted to the hospital on 12/06/2021 and underwent Orthopaedic Disord ers(Unilateral Hip Replacement ()) by ISRAEL Escobar A MD without any intraoperative complications .Her impairment category is Orthopaedic Disorders 08 - Unilateral Hip Replacement ().Pre-morbid ly, Pt. was independent/mod-I in Locomotion, Safety Awareness, Social Cognition, and Balance; and she had good Transfers Control, Sphincter Control, Self-Care, Communication, and Endurance.Currently, sh e has deficits of Locomotion, Social Cognition, Safety Awareness, Balance, Sphincter Control, Self-Ca re, Transfers Control, Endurance, and Communication.Pt. is now referred to [facility] for acute in-patient rehabilitation in order to maximize patient's functional independence in activities of daily living, strength, ROM, and mobility.- Rehab Goal Patient has realistic goal of being discharged at assistance level 7-Ind to reside at Home with Fami ly/Relatives. MDM/PLAN: - Physical Therapy Decreased range of motion - to improve, our physical therapists will perform initial evaluation of p t's status upon admission and devise an individualized program for increasing patient's Range of Donny on. Gait dysfunction - to improve, our physical therapists will perform initial evaluation of pt's statu s upon admission and devise an individualized program for Gait Training, and Wheel Chair mobility Inability to transfer - to improve, our physical therapists will perform initial evaluation of pt's status upon admission and devise an individualized program for Bed mobility Need for home safety evaluation - to improve, our physical therapists will perform initial evaluatio n of pt's status upon admission and devise an individualized program for Home Evaluation Need in caregiver upon discharge - to improve, our physical therapists will perform initial evaluati on of pt's status upon admission and devise an individualized program for Caregiver Training New precaution - to improve, our physical therapists will perform initial evaluation of pt's status upon admission and devise an individualized program for Patient precaution education Edema - to improve, our physical therapists will perform initial evaluation of pt's status upon admi ssion and devise an individualized program for Elevation Training, and Lymphedema Therapy Poor balance - to improve, our physical therapists will perform initial evaluation of pt's status up on admission and devise an individualized program for Balance Training Poor endurance - to improve, our physical therapists will perform initial evaluation of pt's status upon admission and devise an individualized program for Endurance Training Weakness - to improve, our physical therapists will perform initial evaluation of pt's status upon a dmission and devise an individualized program for Aquatic Therapy, Neuromuscular Reeducation, and Str engthening Achieving independence - to improve, our physical therapists will perform initial evaluation of pt's status upon admission and devise an individualized program for Community Reintegration Activities - Occupational Therapy ADL deficits - to improve, our occupation therapists will perform initial evaluation of pt's status upon admission and devise an individualized program for Bathing, Bed mobility, Community Reintegratio n, Cooking, Dressing, Eating, Fine Motor Skills, Grooming, Homemaking, Kitchen Mobility, Laundry, Pat ient Education, Safety Awareness, Splinting - Positioning, Transfers(Toilet, Tub, Shower), and Wheel Chair Management Cognitive deficits - to improve, our occupation therapists will perform initial evaluation of pt's s tatus upon admission and devise an individualized program for Cognition - orientation Need for clinical care coordinator - to improve, our occupation therapists will perform initial evaluation of pt's status upon admission and devise an individualized program for Caregiver Training Weakness - to improve, our occupation therapists will perform initial evaluation of pt's status upon admission and devise an individualized program for Aquatic Therapy, Balance, Endurance, UE ROM, and UE strengthening - Other See attached MAR (Medication Administration Record) - Anterior Hip Precaution No abduction No active extension No adduction across midline No external rotation No hip flexion >90 degrees No internal rotation - Diet - Liquid Texture Continue Regular - Tube Feed Continue N/A - Diet Type Continue Regular - Posterior Hip Precaution No adduction across midline No external rotation No hip flexion >90 degrees No internal rotation No wheel chair propulsion - Weight Bearing Precaution WBAT right LE - Skin care per protocol - Diet - Solid Texture Continue Regular - Shower allowing shower FUNCTIONAL STATUS: UPDATED AT WEEKLY TEAM CONFERENCE - Bladder Same accident frequency: 7-Ind - No accidents in the past 7 days - Bowel Same accident frequency: 7-Ind - No accidents in the past 7 days - Walking Same score based on distance walked: 0(N/A) Same score based on distance walked: 1(<=50ft) - Wheelchair Same score based on distance traveled: 0(N/A) FUNCTIONAL STATUS: - Self-Care A. Eating Ind B. Grooming Ind C. Bathing modA D. Dressing - Upper Silver E. Dressing - Lower modA F. Toileting modA - Sphincter Control G. Bladder control sup H. Bowel control sup - Transfers Control I. Bed/Chair/Wheelchair Silver J. Toilet Silver K. Tub/Shower modA - Locomotion L. Walk/Wheelchair (B) Silver M. Stairs maxA - Communication N. Comprehension (B) Steffen O. Expression (B) Steffen - Social Cognition P. Social Interaction Ind Q. Problem Solving Steffen R. Memory Steffen - Endurance Poor - Balance Fair - Safety Awareness Fair QI SCORES: - Self-Care A. Eating 03-Partial/moderate assistance B. Oral hygiene 02-Substantial/maximal assistance C. Toileting hygiene 02-Substantial/maximal assistance E. Shower/bathe self 02-Substantial/maximal assistance F. Upper body dressing 02-Substantial/maximal assistance G. Lower body dressing 88-Not attempted due to medical condition or safety concerns H. Putting on/taking off footwear 88-Not attempted due to medical condition or safety concerns - Mobility A. Roll left and right 03-Partial/moderate assistance B. Sit to lying 02-Substantial/maximal assistance C. Lying to sitting on side of bed 02-Substantial/maximal assistance D. Sit to stand 02-Substantial/maximal assistance E. Chair/wqu-[id number] transfer 02-Substantial/maximal assistance F. Toilet transfer 02-Substantial/maximal assistance G. Car transfer 88-Not attempted due to medical condition or safety concerns I. Walk 10 feet 88-Not attempted due to medical condition or safety concerns J. Walk 50 feet with two turns 88-Not attempted due to medical condition or safety concerns K. Walk 150 feet 88-Not attempted due to medical condition or safety concerns L. Walking 10 feet on uneven surfaces 88-Not attempted due to medical condition or safety concerns M. 1 step (curb) 88-Not attempted due to medical condition or safety concerns N. 4 steps 88-Not attempted due to medical condition or safety concerns O. 12 steps 88-Not attempted due to medical condition or safety concerns P. Picking up object 88-Not attempted due to medical condition or safety concerns R. Wheel 50 feet with two turns 88-Not attempted due to medical condition or safety concerns S. Wheel 150 feet 88-Not attempted due to medical condition or safety concerns - Bladder and Bowel Bladder continence Bowel continence - Endurance Fair - Balance Fair - Safety Awareness Fair [facility] DEFICITS: Self-Care, Mobility, Endurance, Balance, and Safety Awareness SIGNATURE PANEL: (CDT)
[2021-12-06] MEDS: SYSTANE LUBRICANT EYE OPTH SCH (20:18)
[2021-12-06] MEDS: ATORVASTATIN 20 MG TAB PO SCH (20:19)
[2021-12-06] MEDS: VENLAFAXINE HCL 75 MG TABLET PO SCH (20:19)
[2021-12-06] MEDS: TAMSULOSIN 0.4 MG SR CAP PO SCH (20:20)
[2021-12-07] MEDS: LEVOTHYROXINE SOD 0.05 MG TABLET PO SCH (05:10)
[2021-12-07] MEDS: INSULIN -REGULAR HUMAN 50 UNIT/0.5 ML ML SQ SCH ×4 (07:30→20:01)
[2021-12-07] MEDS: FUROSEMIDE 20 MG TABLET PO SCH (07:43)
[2021-12-07] MEDS: BACLOFEN 10 MG TAB PO SCH ×2 (07:43→20:01)
[2021-12-07] MEDS: INSULIN 70/30 100 UNITS/ML SQ SCH ×2 (07:43→16:35)
[2021-12-07] MEDS: COENZYME Q10- 200 MG CAP PO SCH (07:44)
[2021-12-07] MEDS: OCUVITE (VIT A,C & E/LUTEIN/MINERAL) TABLET PO SCH (07:44)
[2021-12-07] MEDS: GABAPENTIN 300 MG CAP PO SCH ×2 (07:44→20:00)
[2021-12-07] MEDS: FE SULF/FA/VIT B COMP & C TAB PO SCH (07:44)
[2021-12-07] MEDS: MAGNESIUM OXIDE 400 MG TAB PO SCH ×2 (07:44→20:00)
[2021-12-07] MEDS: PANTOPRAZOLE 40MG TABLET PO SCH (07:44)
[2021-12-07] MEDS: POTASSIUM CL SA 10 MEQ TAB PO SCH (07:44)
[2021-12-07] MEDS: FERROUS SULFATE 325 MG TAB PO SCH (07:44)
[2021-12-07] MEDS: METFORMIN HCL 500 MG TAB PO SCH ×2 (07:45→16:35)
[2021-12-07] MEDS: CELECOXIB 100 MG CAPSULE PO SCH (07:45)
[2021-12-07] MEDS: lisinopriL 10 MG TAB PO SCH (07:45)
[2021-12-07] MEDS: LIDOCAINE 4% PATCH TOP SCH (07:45)
[2021-12-07] MEDS: CRANBERRY FRUIT EXTRACT 400 MG CAP PO SCH ×2 (07:45→20:01)
[2021-12-07] MEDS: VITAMIN B COMPLEX 1 CAP PO SCH (07:45)
[2021-12-07] MEDS: RIVAROXABAN 10 MG TABLET PO SCH (07:45)
[2021-12-07] MEDS: K2 PO SCH (07:48)
[2021-12-07] MEDS: Meropenem 1,000 MG in NA CHLORIDE 0.9% 100 ML IV SCH ×2 (07:48→20:01)
[2021-12-07] MEDS: VITAMIN D3 PO SCH (07:48)
[2021-12-07] MEDS: BIOTIN 500 MCG PO SCH (07:48)
[2021-12-07] MEDS: POLYETHYL GLY 3350 17 GM/DOSE PO SCH (07:49)
[2021-12-07] MEDS: FLUTICASONE 50MCG NASAL SPRAY NAS SCH (07:49)
[2021-12-07] MEDS: NYSTATIN PWDR 100000 UNIT/GM TOP SCH ×2 (07:51→20:00)
--- NOTE | 2021-12-07 17:52 | R.PN ---
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 Pt denied any Shortness of Breath. WBC 8.8, Hgb 8.8, glu 146 to 180, Contestant Coordinator 0.68, prealbumin 11.5, UA is normal, covid-19 is negative. Urin e cultures show gram neg rods, sensitivity pending. She has less pain in the right hip pain with therapy. She has less muscle spasms at night. Cognitive exercises done with 96 to 98 % accuracy. Ambulated 250' with standby assistance using a rolling walker. VITAL SIGNS Temperature: 97.4 F SBP/DBP: 164/66 Pulse: 82 Resp: 16 MEDICATION ALLERGIES: IODINE LEVOFLOXACIN CANAGLIFLOZIN DULAGLUTIDE ENVIRONMENTAL ALLERGIES: - Substance Allergies None Known - Other Allergies None Known NURSING: - Shower allowing shower - Skin care per protocol PRECAUTIONS: - Posterior Hip Precaution No adduction across midline No external rotation No hip flexion >90 degrees No internal rotation No wheel chair propulsion - Weight Bearing Precaution WBAT right LE ACTIVITIES OOB only with supervision THERAPIES: - Dietary and Nutrition Adequate Nutrition. Nutritional Education. Nutritional Supplements. Evaluate and Treat. - Occupational Therapy Cognitive Retraining. Patient needs Occupational Therapy for a daily minimum of 1.5 hours at least 5 out of 7 days, to improve Activities of Daily Living, including: Eating, Grooming, Bathing, Dressing, Toileting, Toilet Transfers, Community Reintegration, Higher functional activities, Adaptive Equipme nt, Splinting, Household Tasks, and Other activities as determined. Visual Perceptual Training. Evalu ate and Treat. Safety Awareness. Patient/Family Education. Transfer Training. Adaptive Equipment. ADL Training. - Speech Therapy Speech Intelligibility Training. Evaluate and Treat. Cognitive Training. Receptive Language Skills. M james Strategies. - Physical Therapy Patient needs Physical Therapy for a daily minimum of 1.5 hours at least 5 out of 7 days, to improve: Mobility, Strengthening, Transfers, Stretching, ROM, Endurance, Ability to manage stairs, Gait, and Balance. Evaluate and Treat. Gait Training. Mobility Training. Safety Awareness. Balance Training. Tr ansfer Training. LE Strengthening. PHYSICAL EXAM - Gen Alert and awake Lying in bed No apparent distress Oriented to: person, time, and place - Skin No skin breakdown. Normacephalic - Eyes No abnormalities - ENMT No abnormalities - Neck No abnormalities - CVS RRR - Chest No abnormalities - Resp No wheezing - Abd Soft - GI Non distended Deferred - No abnormalities - Ext No significant edema - MSK 4+/5 weakness in both lower extremities. - Neuro No focal deficits - Psych No abnormalities ASSESSMENT: Pt. is a 76 yo Right-handed female.On 11/16/2021 she was admitted to [facility] with diagnosis TOTAL R IGHT HIP ARTHROPLASTY.Pt. was admitted to the hospital on 12/07/2021 and underwent Orthopaedic Disord ers(Unilateral Hip Replacement ()) by ISRAEL Escobar A MD without any intraoperative complications .Her impairment category is Orthopaedic Disorders 08 - Unilateral Hip Replacement ().Pre-morbid ly, Pt. was independent/mod-I in Locomotion, Safety Awareness, Social Cognition, and Balance; and she had good Transfers Control, Sphincter Control, Self-Care, Communication, and Endurance.Currently, sh e has deficits of Locomotion, Social Cognition, Safety Awareness, Balance, Sphincter Control, Self-Ca re, Transfers Control, Endurance, and Communication.Pt. is now referred to [facility] for acute in-patient rehabilitation in order to maximize patient's functional independence in activities of daily living, strength, ROM, and mobility.- Rehab Goal Patient has realistic goal of being discharged at assistance level 7-Ind to reside at Home with Fami ly/Relatives. MDM/PLAN: - Physical Therapy Decreased range of motion - to improve, our physical therapists will perform initial evaluation of p t's status upon admission and devise an individualized program for increasing patient's Range of Donny on. Gait dysfunction - to improve, our physical therapists will perform initial evaluation of pt's statu s upon admission and devise an individualized program for Gait Training, and Wheel Chair mobility Inability to transfer - to improve, our physical therapists will perform initial evaluation of pt's status upon admission and devise an individualized program for Bed mobility Need for home safety evaluation - to improve, our physical therapists will perform initial evaluatio n of pt's status upon admission and devise an individualized program for Home Evaluation Need in caregiver upon discharge - to improve, our physical therapists will perform initial evaluati on of pt's status upon admission and devise an individualized program for Caregiver Training New precaution - to improve, our physical therapists will perform initial evaluation of pt's status upon admission and devise an individualized program for Patient precaution education Edema - to improve, our physical therapists will perform initial evaluation of pt's status upon admi ssion and devise an individualized program for Elevation Training, and Lymphedema Therapy Poor balance - to improve, our physical therapists will perform initial evaluation of pt's status up on admission and devise an individualized program for Balance Training Poor endurance - to improve, our physical therapists will perform initial evaluation of pt's status upon admission and devise an individualized program for Endurance Training Weakness - to improve, our physical therapists will perform initial evaluation of pt's status upon a dmission and devise an individualized program for Aquatic Therapy, Neuromuscular Reeducation, and Str engthening Achieving independence - to improve, our physical therapists will perform initial evaluation of pt's status upon admission and devise an individualized program for Community Reintegration Activities - Occupational Therapy ADL deficits - to improve, our occupation therapists will perform initial evaluation of pt's status upon admission and devise an individualized program for Bathing, Bed mobility, Community Reintegratio n, Cooking, Dressing, Eating, Fine Motor Skills, Grooming, Homemaking, Kitchen Mobility, Laundry, Pat ient Education, Safety Awareness, Splinting - Positioning, Transfers(Toilet, Tub, Shower), and Wheel Chair Management Cognitive deficits - to improve, our occupation therapists will perform initial evaluation of pt's s tatus upon admission and devise an individualized program for Cognition - orientation Need for insurance healthcare representative - to improve, our occupation therapists will perform initial evaluation of pt's status upon admission and devise an individualized program for Caregiver Training Weakness - to improve, our occupation therapists will perform initial evaluation of pt's status upon admission and devise an individualized program for Aquatic Therapy, Balance, Endurance, UE ROM, and UE strengthening - Other See attached MAR (Medication Administration Record) - Anterior Hip Precaution No abduction No active extension No adduction across midline No external rotation No hip flexion >90 degrees No internal rotation - Diet - Liquid Texture Continue Regular - Tube Feed Continue N/A - Diet Type Continue Regular - Posterior Hip Precaution No adduction across midline No external rotation No hip flexion >90 degrees No internal rotation No wheel chair propulsion - Weight Bearing Precaution WBAT right LE - Skin care per protocol - Diet - Solid Texture Continue Regular - Shower allowing shower FUNCTIONAL STATUS: UPDATED AT WEEKLY TEAM CONFERENCE - Bladder Same accident frequency: 7-Ind - No accidents in the past 7 days - Bowel Same accident frequency: 7-Ind - No accidents in the past 7 days - Walking Same score based on distance walked: 0(N/A) Same score based on distance walked: 1(<=50ft) - Wheelchair Same score based on distance traveled: 0(N/A) FUNCTIONAL STATUS: - Self-Care A. Eating Ind B. Grooming Ind C. Bathing modA D. Dressing - Upper Silver E. Dressing - Lower modA F. Toileting modA - Sphincter Control G. Bladder control sup H. Bowel control sup - Transfers Control I. Bed/Chair/Wheelchair Silver J. Toilet Silver K. Tub/Shower modA - Locomotion L. Walk/Wheelchair (B) Silver M. Stairs maxA - Communication N. Comprehension (B) Steffen O. Expression (B) Steffen - Social Cognition P. Social Interaction Ind Q. Problem Solving Steffen R. Memory Steffen - Endurance Poor - Balance Fair - Safety Awareness Fair QI SCORES: - Self-Care A. Eating 03-Partial/moderate assistance B. Oral hygiene 02-Substantial/maximal assistance C. Toileting hygiene 02-Substantial/maximal assistance E. Shower/bathe self 02-Substantial/maximal assistance F. Upper body dressing 02-Substantial/maximal assistance G. Lower body dressing 88-Not attempted due to medical condition or safety concerns H. Putting on/taking off footwear 88-Not attempted due to medical condition or safety concerns - Mobility A. Roll left and right 03-Partial/moderate assistance B. Sit to lying 02-Substantial/maximal assistance C. Lying to sitting on side of bed 02-Substantial/maximal assistance D. Sit to stand 02-Substantial/maximal assistance E. Chair/[id number]-va-[id number] transfer 02-Substantial/maximal assistance F. Toilet transfer 02-Substantial/maximal assistance G. Car transfer 88-Not attempted due to medical condition or safety concerns I. Walk 10 feet 88-Not attempted due to medical condition or safety concerns J. Walk 50 feet with two turns 88-Not attempted due to medical condition or safety concerns K. Walk 150 feet 88-Not attempted due to medical condition or safety concerns L. Walking 10 feet on uneven surfaces 88-Not attempted due to medical condition or safety concerns M. 1 step (curb) 88-Not attempted due to medical condition or safety concerns N. 4 steps 88-Not attempted due to medical condition or safety concerns O. 12 steps 88-Not attempted due to medical condition or safety concerns P. Picking up object 88-Not attempted due to medical condition or safety concerns R. Wheel 50 feet with two turns 88-Not attempted due to medical condition or safety concerns S. Wheel 150 feet 88-Not attempted due to medical condition or safety concerns - Bladder and Bowel Bladder continence Bowel continence - Endurance Fair - Balance Fair - Safety Awareness Fair CURRENT [facility]. DEFICITS: Self-Care, Mobility, Endurance, Balance, and Safety Awareness SIGNATURE PANEL: (CDT)
[2021-12-07] MEDS: SYSTANE LUBRICANT EYE OPTH SCH (20:00)
[2021-12-07] MEDS: ATORVASTATIN 20 MG TAB PO SCH (20:01)
[2021-12-07] MEDS: VENLAFAXINE HCL 75 MG TABLET PO SCH (20:01)
[2021-12-07] MEDS: TAMSULOSIN 0.4 MG SR CAP PO SCH (20:01)
[2021-12-08] MEDS: LEVOTHYROXINE SOD 0.05 MG TABLET PO SCH (05:07)
[2021-12-08] MEDS: INSULIN -REGULAR HUMAN 50 UNIT/0.5 ML ML SQ SCH ×4 (07:30→20:07)
[2021-12-08] MEDS: NYSTATIN PWDR 100000 UNIT/GM TOP SCH ×2 (08:00→19:57)
[2021-12-08] MEDS: LIDOCAINE 4% PATCH TOP SCH (08:00)
[2021-12-08] MEDS: POLYETHYL GLY 3350 17 GM/DOSE PO SCH (08:00)
[2021-12-08] MEDS: lisinopriL 10 MG TAB PO SCH (08:17)
[2021-12-08] MEDS: FLUTICASONE 50MCG NASAL SPRAY NAS SCH (08:17)
[2021-12-08] MEDS: VITAMIN D3 PO SCH (08:17)
[2021-12-08] MEDS: K2 PO SCH (08:17)
[2021-12-08] MEDS: Meropenem 1,000 MG in NA CHLORIDE 0.9% 100 ML IV SCH ×2 (08:17→19:58)
[2021-12-08] MEDS: BIOTIN 500 MCG PO SCH (08:17)
[2021-12-08] MEDS: RIVAROXABAN 10 MG TABLET PO SCH (08:18)
[2021-12-08] MEDS: FE SULF/FA/VIT B COMP & C TAB PO SCH (08:18)
[2021-12-08] MEDS: CRANBERRY FRUIT EXTRACT 400 MG CAP PO SCH ×2 (08:18→20:05)
[2021-12-08] MEDS: POTASSIUM CL SA 10 MEQ TAB PO SCH (08:18)
[2021-12-08] MEDS: MAGNESIUM OXIDE 400 MG TAB PO SCH ×2 (08:18→20:06)
[2021-12-08] MEDS: CELECOXIB 100 MG CAPSULE PO SCH (08:18)
[2021-12-08] MEDS: PANTOPRAZOLE 40MG TABLET PO SCH (08:18)
[2021-12-08] MEDS: FERROUS SULFATE 325 MG TAB PO SCH (08:18)
[2021-12-08] MEDS: BACLOFEN 10 MG TAB PO SCH ×2 (08:18→20:06)
[2021-12-08] MEDS: OCUVITE (VIT A,C & E/LUTEIN/MINERAL) TABLET PO SCH (08:18)
[2021-12-08] MEDS: GABAPENTIN 300 MG CAP PO SCH ×2 (08:18→20:06)
[2021-12-08] MEDS: COENZYME Q10- 200 MG CAP PO SCH (08:19)
[2021-12-08] MEDS: VITAMIN B COMPLEX 1 CAP PO SCH (08:19)
[2021-12-08] MEDS: METFORMIN HCL 500 MG TAB PO SCH ×2 (08:19→17:02)
[2021-12-08] MEDS: FUROSEMIDE 20 MG TABLET PO SCH (08:19)
[2021-12-08] MEDS: INSULIN 70/30 100 UNITS/ML SQ SCH ×2 (08:20→17:02)
[2021-12-08] MEDS: SYSTANE LUBRICANT EYE OPTH SCH (19:57)
[2021-12-08] MEDS ORDERED: NA CHLORIDE 0.9% 250 ML ONE (19:59)
[2021-12-08] MEDS: VENLAFAXINE HCL 75 MG TABLET PO SCH (20:05)
[2021-12-08] MEDS: TAMSULOSIN 0.4 MG SR CAP PO SCH (20:05)
[2021-12-08] MEDS: ATORVASTATIN 20 MG TAB PO SCH (20:06)
[2021-12-09 04:47] LABS: Absolute Lymphocytes (CBC) 2.3 K/uL (0.7-4.9); Hematocrit 27.2 % (36.0-45.0); Lymphocytes % 27.2 % (15.3-44.8); RBC Red Blood Cell Count 3.13 M/uL (3.86-4.86)
[2021-12-09 05:14] LABS: Albumin 2.6 g/dL (3.4-5.0); BUN Blood Urea Nitrogen 18 mg/dL (7-18); Bicarbonate 28 mmol/L (21-32); Glucose Level 134 mg/dL (74-106); Magnesium 1.9 mg/dL (1.8-2.4); Potassium 4.3 mmol/L (3.5-5.1); Sodium Level 141 mmol/L (136-145)
[2021-12-09] MEDS: LEVOTHYROXINE SOD 0.05 MG TABLET PO SCH (05:24)
[2021-12-09] MEDS: Meropenem 1,000 MG in NA CHLORIDE 0.9% 100 ML IV SCH ×2 (06:10→19:50)
[2021-12-09] MEDS: FLUTICASONE 50MCG NASAL SPRAY NAS SCH (06:16)
[2021-12-09] MEDS: INSULIN -REGULAR HUMAN 50 UNIT/0.5 ML ML SQ SCH ×4 (07:30→19:49)
[2021-12-09] MEDS: INSULIN 70/30 100 UNITS/ML SQ SCH ×2 (08:19→17:07)
[2021-12-09] MEDS: LIDOCAINE 4% PATCH TOP SCH (08:25)
[2021-12-09] MEDS: FE SULF/FA/VIT B COMP & C TAB PO SCH (08:26)
[2021-12-09] MEDS: COENZYME Q10- 200 MG CAP PO SCH (08:26)
[2021-12-09] MEDS: METFORMIN HCL 500 MG TAB PO SCH ×2 (08:26→17:08)
[2021-12-09] MEDS: RIVAROXABAN 10 MG TABLET PO SCH (08:26)
[2021-12-09] MEDS: FERROUS SULFATE 325 MG TAB PO SCH (08:26)
[2021-12-09] MEDS: CRANBERRY FRUIT EXTRACT 400 MG CAP PO SCH ×2 (08:27→19:53)
[2021-12-09] MEDS: lisinopriL 10 MG TAB PO SCH (08:27)
[2021-12-09] MEDS: BIOTIN 500 MCG PO SCH (08:27)
[2021-12-09] MEDS: VITAMIN B COMPLEX 1 CAP PO SCH (08:27)
[2021-12-09] MEDS: POTASSIUM CL SA 10 MEQ TAB PO SCH (08:27)
[2021-12-09] MEDS: GABAPENTIN 300 MG CAP PO SCH ×2 (08:27→19:53)
[2021-12-09] MEDS: PANTOPRAZOLE 40MG TABLET PO SCH (08:28)
[2021-12-09] MEDS: BACLOFEN 10 MG TAB PO SCH ×2 (08:28→19:53)
[2021-12-09] MEDS: FUROSEMIDE 20 MG TABLET PO SCH (08:28)
[2021-12-09] MEDS: MAGNESIUM OXIDE 400 MG TAB PO SCH ×2 (08:28→19:53)
[2021-12-09] MEDS: OCUVITE (VIT A,C & E/LUTEIN/MINERAL) TABLET PO SCH (08:28)
[2021-12-09] MEDS: CELECOXIB 100 MG CAPSULE PO SCH (08:28)
[2021-12-09] MEDS: POLYETHYL GLY 3350 17 GM/DOSE PO SCH (08:29)
[2021-12-09] MEDS: VITAMIN D3 PO SCH (08:30)
[2021-12-09] MEDS: K2 PO SCH (08:30)
[2021-12-09] MEDS: NYSTATIN PWDR 100000 UNIT/GM TOP SCH ×2 (09:58→19:52)
[2021-12-09 16:22] LABS: Prealbumin 19.5 mg/dL (20-40)
--- NOTE | 2021-12-09 18:08 | R.PN ---
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 Pt denied any Shortness of Breath. WBC 8.6, Hgb 9.1, glu 80 to 145, Helicopter Pilot 0.63, prealbumin 19.5, UA is normal, covid-19 is negative. Urine cultures show gram neg rods, sensitivity pending. She has less pain in the right hip pain with therapy. She has less muscle spasms at night. Cognitive exercises done with 96 to 98 % accuracy. Ambulated 150' with standby assistance using a rolling walker. VITAL SIGNS Temperature: 97.4 F SBP/DBP: 155/51 Pulse: 74 Resp: 15 MEDICATION ALLERGIES: IODINE LEVOFLOXACIN CANAGLIFLOZIN DULAGLUTIDE ENVIRONMENTAL ALLERGIES: - Substance Allergies None Known - Other Allergies None Known NURSING: - Shower allowing shower - Skin care per protocol PRECAUTIONS: - Posterior Hip Precaution No adduction across midline No external rotation No hip flexion >90 degrees No internal rotation No wheel chair propulsion - Weight Bearing Precaution WBAT right LE ACTIVITIES OOB only with supervision THERAPIES: - Dietary and Nutrition Adequate Nutrition. Nutritional Education. Nutritional Supplements. Evaluate and Treat. - Occupational Therapy Cognitive Retraining. Patient needs Occupational Therapy for a daily minimum of 1.5 hours at least 5 out of 7 days, to improve Activities of Daily Living, including: Eating, Grooming, Bathing, Dressing, Toileting, Toilet Transfers, Community Reintegration, Higher functional activities, Adaptive Equipme nt, Splinting, Household Tasks, and Other activities as determined. Visual Perceptual Training. Evalu ate and Treat. Safety Awareness. Patient/Family Education. Transfer Training. Adaptive Equipment. ADL Training. - Speech Therapy Speech Intelligibility Training. Evaluate and Treat. Cognitive Training. Receptive Language Skills. M james Strategies. - Physical Therapy Patient needs Physical Therapy for a daily minimum of 1.5 hours at least 5 out of 7 days, to improve: Mobility, Strengthening, Transfers, Stretching, ROM, Endurance, Ability to manage stairs, Gait, and Balance. Evaluate and Treat. Gait Training. Mobility Training. Safety Awareness. Balance Training. Tr ansfer Training. LE Strengthening. PHYSICAL EXAM - Gen Alert and awake Lying in bed No apparent distress Oriented to: person, time, and place - Skin No skin breakdown. Normacephalic - Eyes No abnormalities - ENMT No abnormalities - Neck No abnormalities - CVS RRR - Chest No abnormalities - Resp No wheezing - Abd Soft - GI Non distended Deferred - No abnormalities - Ext No significant edema - MSK 4+/5 weakness in both lower extremities. - Neuro No focal deficits - Psych No abnormalities ASSESSMENT: Pt. is a 76 yo Right-handed female.On 11/16/2021 she was admitted to [facility] with diagnosis TOTAL R IGHT HIP ARTHROPLASTY.Pt. was admitted to the hospital on 12/09/2021 and underwent Orthopaedic Disord ers(Unilateral Hip Replacement ()) by ISRAEL Escobar A MD without any intraoperative complications .Her impairment category is Orthopaedic Disorders 08 - Unilateral Hip Replacement ().Pre-morbid ly, Pt. was independent/mod-I in Locomotion, Safety Awareness, Social Cognition, and Balance; and she had good Transfers Control, Sphincter Control, Self-Care, Communication, and Endurance.Currently, sh e has deficits of Locomotion, Social Cognition, Safety Awareness, Balance, Sphincter Control, Self-Ca re, Transfers Control, Endurance, and Communication.Pt. is now referred to [facility] for acute in-patient rehabilitation in order to maximize patient's functional independence in activities of daily living, strength, ROM, and mobility.- Rehab Goal Patient has realistic goal of being discharged at assistance level 7-Ind to reside at Home with Fami ly/Relatives. MDM/PLAN: - Physical Therapy Decreased range of motion - to improve, our physical therapists will perform initial evaluation of p t's status upon admission and devise an individualized program for increasing patient's Range of Donny on. Gait dysfunction - to improve, our physical therapists will perform initial evaluation of pt's statu s upon admission and devise an individualized program for Gait Training, and Wheel Chair mobility Inability to transfer - to improve, our physical therapists will perform initial evaluation of pt's status upon admission and devise an individualized program for Bed mobility Need for home safety evaluation - to improve, our physical therapists will perform initial evaluatio n of pt's status upon admission and devise an individualized program for Home Evaluation Need in caregiver upon discharge - to improve, our physical therapists will perform initial evaluati on of pt's status upon admission and devise an individualized program for Caregiver Training New precaution - to improve, our physical therapists will perform initial evaluation of pt's status upon admission and devise an individualized program for Patient precaution education Edema - to improve, our physical therapists will perform initial evaluation of pt's status upon admi ssion and devise an individualized program for Elevation Training, and Lymphedema Therapy Poor balance - to improve, our physical therapists will perform initial evaluation of pt's status up on admission and devise an individualized program for Balance Training Poor endurance - to improve, our physical therapists will perform initial evaluation of pt's status upon admission and devise an individualized program for Endurance Training Weakness - to improve, our physical therapists will perform initial evaluation of pt's status upon a dmission and devise an individualized program for Aquatic Therapy, Neuromuscular Reeducation, and Str engthening Achieving independence - to improve, our physical therapists will perform initial evaluation of pt's status upon admission and devise an individualized program for Community Reintegration Activities - Occupational Therapy ADL deficits - to improve, our occupation therapists will perform initial evaluation of pt's status upon admission and devise an individualized program for Bathing, Bed mobility, Community Reintegratio n, Cooking, Dressing, Eating, Fine Motor Skills, Grooming, Homemaking, Kitchen Mobility, Laundry, Pat ient Education, Safety Awareness, Splinting - Positioning, Transfers(Toilet, Tub, Shower), and Wheel Chair Management Cognitive deficits - to improve, our occupation therapists will perform initial evaluation of pt's s tatus upon admission and devise an individualized program for Cognition - orientation Need for director medicare sales - to improve, our occupation therapists will perform initial evaluation of pt's status upon admission and devise an individualized program for Caregiver Training Weakness - to improve, our occupation therapists will perform initial evaluation of pt's status upon admission and devise an individualized program for Aquatic Therapy, Balance, Endurance, UE ROM, and UE strengthening - Other See attached MAR (Medication Administration Record) - Anterior Hip Precaution No abduction No active extension No adduction across midline No external rotation No hip flexion >90 degrees No internal rotation - Diet - Liquid Texture Continue Regular - Tube Feed Continue N/A - Diet Type Continue Regular - Posterior Hip Precaution No adduction across midline No external rotation No hip flexion >90 degrees No internal rotation No wheel chair propulsion - Weight Bearing Precaution WBAT right LE - Skin care per protocol - Diet - Solid Texture Continue Regular - Shower allowing shower FUNCTIONAL STATUS: UPDATED AT WEEKLY TEAM CONFERENCE - Bladder Same accident frequency: 7-Ind - No accidents in the past 7 days - Bowel Same accident frequency: 7-Ind - No accidents in the past 7 days - Walking Same score based on distance walked: 0(N/A) Same score based on distance walked: 1(<=50ft) - Wheelchair Same score based on distance traveled: 0(N/A) FUNCTIONAL STATUS: - Self-Care A. Eating Ind B. Grooming Ind C. Bathing modA D. Dressing - Upper Silver E. Dressing - Lower modA F. Toileting modA - Sphincter Control G. Bladder control sup H. Bowel control sup - Transfers Control I. Bed/Chair/Wheelchair Silver J. Toilet Silver K. Tub/Shower modA - Locomotion L. Walk/Wheelchair (B) Silver M. Stairs maxA - Communication N. Comprehension (B) Steffen O. Expression (B) Steffen - Social Cognition P. Social Interaction Ind Q. Problem Solving Steffen R. Memory Steffen - Endurance Poor - Balance Fair - Safety Awareness Fair QI SCORES: - Self-Care A. Eating 03-Partial/moderate assistance B. Oral hygiene 02-Substantial/maximal assistance C. Toileting hygiene 02-Substantial/maximal assistance E. Shower/bathe self 02-Substantial/maximal assistance F. Upper body dressing 02-Substantial/maximal assistance G. Lower body dressing 88-Not attempted due to medical condition or safety concerns H. Putting on/taking off footwear 88-Not attempted due to medical condition or safety concerns - Mobility A. Roll left and right 03-Partial/moderate assistance B. Sit to lying 02-Substantial/maximal assistance C. Lying to sitting on side of bed 02-Substantial/maximal assistance D. Sit to stand 02-Substantial/maximal assistance E. Chair/lld-pp-nrkpi transfer 02-Substantial/maximal assistance F. Toilet transfer 02-Substantial/maximal assistance G. Car transfer 88-Not attempted due to medical condition or safety concerns I. Walk 10 feet 88-Not attempted due to medical condition or safety concerns J. Walk 50 feet with two turns 88-Not attempted due to medical condition or safety concerns K. Walk 150 feet 88-Not attempted due to medical condition or safety concerns L. Walking 10 feet on uneven surfaces 88-Not attempted due to medical condition or safety concerns M. 1 step (curb) 88-Not attempted due to medical condition or safety concerns N. 4 steps 88-Not attempted due to medical condition or safety concerns O. 12 steps 88-Not attempted due to medical condition or safety concerns P. Picking up object 88-Not attempted due to medical condition or safety concerns R. Wheel 50 feet with two turns 88-Not attempted due to medical condition or safety concerns S. Wheel 150 feet 88-Not attempted due to medical condition or safety concerns - Bladder and Bowel Bladder continence Bowel continence - Endurance Fair - Balance Fair - Safety Awareness Fair CURRENT [facility]. DEFICITS: Self-Care, Mobility, Endurance, Balance, and Safety Awareness SIGNATURE PANEL: (CDT)
[2021-12-09] MEDS: SYSTANE LUBRICANT EYE OPTH SCH (19:49)
[2021-12-09] MEDS: TAMSULOSIN 0.4 MG SR CAP PO SCH (19:52)
[2021-12-09] MEDS: VENLAFAXINE HCL 75 MG TABLET PO SCH (19:53)
[2021-12-09] MEDS: ATORVASTATIN 20 MG TAB PO SCH (19:53)
[2021-12-10] MEDS: LEVOTHYROXINE SOD 0.05 MG TABLET PO SCH (05:04)
[2021-12-10] MEDS: PANTOPRAZOLE 40MG TABLET PO SCH (07:06)
[2021-12-10] MEDS: INSULIN -REGULAR HUMAN 50 UNIT/0.5 ML ML SQ SCH ×2 (07:13→11:30)
[2021-12-10 07:15] VITALS: BP 156/62; TEMP 97.2
[2021-12-10] MEDS: INSULIN 70/30 100 UNITS/ML SQ SCH (07:30)
[2021-12-10] MEDS: lisinopriL 10 MG TAB PO SCH (08:00)
[2021-12-10] MEDS: METFORMIN HCL 500 MG TAB PO SCH (08:00)
[2021-12-10] MEDS: FE SULF/FA/VIT B COMP & C TAB PO SCH (08:00)
[2021-12-10] MEDS: MAGNESIUM OXIDE 400 MG TAB PO SCH (08:00)
[2021-12-10] MEDS: POTASSIUM CL SA 10 MEQ TAB PO SCH (08:00)
[2021-12-10] MEDS: K2 PO SCH (08:00)
[2021-12-10] MEDS: Meropenem 1,000 MG in NA CHLORIDE 0.9% 100 ML IV SCH (08:00)
[2021-12-10] MEDS: BACLOFEN 10 MG TAB PO SCH (08:00)
[2021-12-10] MEDS: VITAMIN D3 PO SCH (08:00)
[2021-12-10] MEDS: NYSTATIN PWDR 100000 UNIT/GM TOP SCH (08:00)
[2021-12-10] MEDS: POLYETHYL GLY 3350 17 GM/DOSE PO SCH (08:00)
[2021-12-10] MEDS: CRANBERRY FRUIT EXTRACT 400 MG CAP PO SCH (08:00)
[2021-12-10] MEDS: FERROUS SULFATE 325 MG TAB PO SCH (08:00)
[2021-12-10] MEDS: CELECOXIB 100 MG CAPSULE PO SCH (08:00)
[2021-12-10] MEDS: FUROSEMIDE 20 MG TABLET PO SCH (08:00)
[2021-12-10] MEDS: LIDOCAINE 4% PATCH TOP SCH (08:00)
[2021-12-10] MEDS: BIOTIN 500 MCG PO SCH (08:00)
[2021-12-10] MEDS: FLUTICASONE 50MCG NASAL SPRAY NAS SCH (08:00)
[2021-12-10] MEDS: RIVAROXABAN 10 MG TABLET PO SCH (08:00)
[2021-12-10] MEDS: OCUVITE (VIT A,C & E/LUTEIN/MINERAL) TABLET PO SCH (08:00)
[2021-12-10] MEDS: VITAMIN B COMPLEX 1 CAP PO SCH (08:00)
[2021-12-10] MEDS: GABAPENTIN 300 MG CAP PO SCH (08:00)
[2021-12-10] MEDS: COENZYME Q10- 200 MG CAP PO SCH (08:54)
--- NOTE | 2021-12-10 10:04 | P.RH.PN ---
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3) L 12/09/21 04:21 Neutrophils % 59.5 % (41.7-73.7) 12/09/21 04:21 Lymphocytes % 27.2 % (15.3-44.8) 12/09/21 04:21 Monocytes % 8.6 % (3.3-12.3) 12/09/21 04:21 Eosinophils % 4.1 % (0-4.4) 12/09/21 04:21 Basophils % 0.6 % (0-1.3) 12/09/21 04:21 Absolute Neutrophils 5.1 K/uL (1.8-8.0) 12/09/21 04:21 Absolute Lymphocytes 2.3 K/uL (0.7-4.9) 12/09/21 04:21 Absolute Monocytes 0.7 K/uL (0.1-1.3) 12/09/21 04:21 Absolute Eosinophils 0.4 K/uL (0-0.5) 12/09/21 04:21 Absolute Basophils 0.1 K/uL (0-0.5) 12/09/21 04:21 Sodium 141 mmol/L (136-145) 12/09/21 04:21 Potassium 4.3 mmol/L (3.5-5.1) 12/09/21 04:21 Chloride 105 mmol/L (98-107) 12/09/21 04:21 Carbon Dioxide 28 mmol/L (21-32) 12/09/21 04:21 BUN 18 mg/dL (7-18) 12/09/21 04:21 Creatinine 0.63 mg/dL (0.55-1.3) 12/09/21 04:21 Estimated GFR > 90 mL/min (=/>90) 12/09/21 04:21 Glucose 134 mg/dL (74-106) H 12/09/21 04:21 POC Glucose 153 mg/dL (65-120) H 12/10/21 06:58 Calcium 8.9 mg/dL (8.5-10.1) 12/09/21 04:21 Phosphorus 3.8 mg/dL (2.5-4.9) 11/19/21 05:43 Magnesium 1.9 mg/dL (1.8-2.4) 12/09/21 04:21 Albumin 2.6 g/dL (3.4-5.0) L 12/09/21 04:21 Prealbumin 19.5 mg/dL (20-40) L 12/09/21 04:21 Urine Color Yellow (Yellow) 12/01/21 11:10 Urine Appearance Cloudy (Clear) 12/01/21 11:10 Urine pH 7.0 (5.0-7.0) 12/01/21 11:10 Ur Specific [place] 1.015 (1.005-1.030) 12/01/21 11:10 Glucose (UA)(Auto) Negative (Negative) 12/01/21 11:10 Urine Ketones Negative (Negative) 12/01/21 11:10 Urine Blood Trace (Negative) H 12/01/21 11:10 Urine Nitrite Positive (Negative) H 12/01/21 11:10 Urine Bilirubin Negative (Negative) 12/01/21 11:10 Urine Urobilinogen 0.2 mg/dL (0.2-1.0) 12/01/21 11:10 Ur Leukocyte Esterase 3+ (Negative) H 12/01/21 11:10 Urine RBC <5 /HPF (NONE SEEN) 12/01/21 11:10 Urine WBC >50 /HPF (<5) H 12/01/21 11:10 Ur Squamous Epith Cells 10-20 /HPF (NONE SEEN) H 12/01/21 11:10 Urine Bacteria >50 /HPF (<20) H 12/01/21 11:10 Ur Microscopic Review Cancelled 11/18/21 22:43 Urine Culture Reflexed Not needed 12/01/21 11:10 Urine Total Protein Negative (Negative) 12/01/21 11:10 SARS-CoV-2 Rap RNA(RT-PCR) Negative (NEGATIVE) 12/02/21 04:40 ABO/Rh O POSITIVE 11/19/21 10:26 Solid Phase Ab Screen Negative 11/19/21 10:26 Crossmatch See Detail 11/19/21 10:26 Weight: 187 lb 9.6 oz Wound Present: No Closed Surgical Incision Present: Yes Negative Pressure Wound Therapy Present: No Physician Update: Min assistance with car transfer. Walk 250' SBA with a rolling walker. SBA for transfers with walker. To be discharged home today with home health. Functional Improvement: Pt. physically is capable of completing tasks w/ in creased ability, however is self limiting by anxiety, apprehension, and therapist that she was working w/. Summary: Patient's care plan and long term care pharmacist goals have been reviewed and revised as necessary. Please see the Rehabilitation Signature page for all necessary signatures.
== END 2021-12-10 14:24 | disposition home or self-care (01) | DRG 561 ==
LOC: 5TH 19:15
PROVIDERS: ADMIT Psychiatry & Neurology Neurology with Special Qualifications in Child Neurology; ATTEND Psychiatry & Neurology Neurology with Special Qualifications in Child Neurology
DX: Z47.1 Aftercare following joint replacement surgery (principal); E11.9 Type 2 diabetes mellitus without complications; K21.9 Gastro-esophageal reflux disease without esophagitis; I10 Essential (primary) hypertension; F41.9 Anxiety disorder, unspecified; Z90.710 Acquired absence of both cervix and uterus; Z96.641 Presence of right artificial hip joint; Z20.822 Contact with and (suspected) exposure to COVID-19
CPT/HCPCS: 36415; 80048; 81001; 81003; 81015; 82040; 82274; 82947; 83735; 84100; 84134; 85014; 85018; 85025; 86850; 86900; 86901; 87077; 87086; 87088; 87186; 92523; 93971; 97110; 97116; 97161; 97165; 97530; 97542; J1815; J2185; J7050; J8597; P9016; U0003

== ENCOUNTER 2022-05-10 17:52 | Emergency (ER) | payer OTHER ==
--- OUTSIDE RECORDS SUMMARY | 2022-05-10 18:29 | XMS REPORT | Continuity of Care Document ---
:1945 Author Organization [facility] t Address [address] [place] [address] Care Team Providers Name Role Phone BRYAN_Fouzia Attending Clinician Unavailable Cheyanne Shah Attending Clinician [phone] ROLAN DUGAN Attending Clinician Unavailable MD ROLAN DUGAN Attending Clinician Unavailable DOLORES ARAGON Attending Clinician Unavailable ADRIEL CATES Attending Clinician Unavailable [email or web address] Attending Clinician Unavailable BRYAN_Fouzia Admitting Clinician Unavailable ROLAN DUGAN Admitting Clinician Unavailable MD ROLAN DUGAN Admitting Clinician Unavailable [email or web address] Admitting Clinician Unavailable Payers Payer Name Policy Type Policy Number Effective Date Expiration Date S tamika MEDICARE [place]: [id number] 2012 [employer] 00:00:00 Privlo SUPPLEMENTAL - [id number] 2013 zeeWAVES AND 00:00:00 LIFE INSURANCE (MEDICARE SUPPLEMENT) Problems This patient has no known problems. Allergies, Adverse Reactions, Alerts This patient has no known allergies or adverse reactions. Medications This patient has no known medications. Procedures This patient has no known procedures. Encounters Start End Encounter Admission Attending Care Care Encounter Source Date/Time Date/Time Type Type Clinicians Facility Department ID 2022-03-16 2022-03-16 Outpatient JOANNA [facility] [id number] Mark 01:27:00 01:27:00 706 [facility] 2022-03-16 2022-03-16 Outpatient Cheyanne Shah [facility] [id number] 00:00:00 00:00:00 Meghann [id number] [facility] 2022-03-09 2022-03-09 Outpatient KEFFER_A [facility] [id number] [place] 04:08:00 04:08:00 629 [facility] 2022-03-09 2022-03-09 Outpatient Cheyanne Shah [facility] [id number] 00:00:00 00:00:00 Meghann [id number] 2021-12-31 2021-12-31 Outpatient DUGAN, ROLAN [facility] [id number] [place] 00:00:00 00:00:[address] 2021-12-31 2021-12-31 Outpatient DUGAN, ROLAN [facility] [id number] [place] 00:00:00 00:00:[address] 2021-12-20 2021-12-20 Outpatient KEFFER_A [facility] [id number] [place] 04:35:00 04:35:00 411 [facility] 2021-12-20 2021-12-20 Outpatient Cheyanne Shah [facility] [id number] 00:00:00 00:00:00 Meghann [id number] 2021-12-03 2021-12-03 Outpatient DUGAN, ROLAN [facility] [id number] [place] 00:00:00 00:00:[address] 2021-12-03 2021-12-03 Outpatient DUGAN, ROLAN [facility] [id number] [place] 00:00:00 00:00:[address] 2021-11-16 2021-11-18 Inpatient DUGAN, ROLAN [facility] [id number] [place] 00:00:00 00:00:[address] 2021-11-01 2021-11-05 Inpatient DUGAN, ROLAN [facility] [id number] [place] 00:00:00 00:00:[address] 2021-10-27 2021-10-27 Outpatient MARGO, [facility] [id number] [place] 00:00:00 00:00:00 DOLORES [address] 2021-10-27 2021-10-27 Outpatient DUGAN, ROLAN [facility] [id number] [place] 00:00:00 00:00:[address] 2021-10-12 2021-10-12 Outpatient DUGAN, ROLAN [facility] [id number] [place] 00:00:00 00:00:[address] 2021-09-16 2021-09-16 Outpatient KESUZI_Fouzia [facility] [id number] [place] 10:55:00 10:55:00 106 [facility] 2021-09-16 2021-09-16 Outpatient Cheyanne Shah [facility] [id number] 00:00:00 00:00:00 Meghann [id number] 2021-08-18 2021-08-18 Outpatient DUGAN, ROLAN [facility] [id number] [place] 00:00:00 00:00:[address] 2021-08-18 2021-08-18 Outpatient DUGAN, ROLAN [facility] [id number] [place] 00:00:00 00:00:[address] 2021-07-29 2021-07-29 Outpatient DUGAN, ROLAN [facility] [id number] [place] 00:00:00 00:00:[address] 2021-07-12 2021-07-12 Outpatient DUGAN, ROLAN [facility] [id number] [place] 00:00:00 00:00:[address] 2021-07-12 2021-07-12 Outpatient DUGAN, ROLAN [facility] [id number] [place] 00:00:00 00:00:[address] 2021-05-21 2021-05-21 Outpatient CATES, ADRIEL [facility] [id number] [place] 00:00:00 00:00:[address] 2021-04-29 2021-04-29 Outpatient DUGAN, ROLAN [facility] [id number] [place] 00:00:00 00:00:[address] 2021-04-29 2021-04-29 Outpatient DUGAN, ROLAN [facility] [id number] [place] 00:00:00 00:00:[address] 2021-04-29 2021-04-29 Outpatient DUGAN, ROLAN [facility] [id number] [place] 00:00:00 00:00:[address] 2021-04-28 2021-04-28 Outpatient ROLAN DUGAN [facility] [id number] [place] 00:00:00 00:00:[address] 2021-04-28 2021-04-28 Outpatient ROLAN DUGAN [facility] [id number] [place] 00:00:00 00:00:[address] 2021-01-04 2021-01-04 Outpatient KEFFER_Fouzia [facility] [id number] [place] 05:46:00 05:46:00 426 [facility] 2021-01-04 2021-01-04 Outpatient Cheyanne Shah [facility] [id number] 00:00:00 00:00:00 Meghann [id number] 2020-12-28 2020-12-28 Outpatient KEFFER_Fouzia [facility] [id number] [place] 02:01:00 02:01:00 419 [facility] 2020-12-28 2020-12-28 Outpatient Cheyanne Shah [facility] [id number] 00:00:00 00:00:00 Meghann [id number] 2020-12-21 2020-12-21 Outpatient KESUZI_Fouzia [facility] [id number] [place] 12:01:00 12:01:00 412 [facility] 2020-07-29 2020-07-29 Outpatient keffer_a [facility] [id number] [place] 02:19:00 02:19:00 [id number] da Medical [...] YENI with probe detection (test code = 30318-1) Whether patient is employed in a healthcare setting (test code = Un known 55215-2) Whether the patient has symptoms related to condition of interest U nknown (test code = 47659-7) Whether the patient was hospitalized for condition of interest Unkn own (test code = 25640-4) Whether the patient was admitted to intensive care unit (ICU) for U nknown condition of interest (test code = 15694-5) Whether patient resides in a congregate care setting (test code = U nknown 35987-2) status (test code = 34459-0) Unknown Date and time of symptom onset (test code = 66992-4) Unknown SARS-CoV-2 (COVID-19) RNA [Presence] in Respiratory specimen by YENI with probe [id number] 21:49:41 Test Item Value Reference Range Interpretation Comments SARS-CoV-2 (COVID-19) RNA Not detected Not-Detected [Presence] in Respiratory specimen by YENI with probe detection (test code = 43451-7) Whether patient is employed in a healthcare setting (test code = 55630-7) Whether the patient has symptoms related to condition of interest (test code = 80898-7) Patient was hospitalized because of this condition (test code = 87863-4) Whether the patient was admitted to intensive care unit (ICU) for condition of interest (test code = 39654-8) Whether patient resides in a congregate care setting (test code = 58532-7)
[2022-05-10 19:00] LABS: Absolute Lymphocytes (CBC) 2.9 K/uL (0.7-4.9); Hematocrit 36.6 % (36.0-45.0); MCV 88.1 fL (80-100); MPV 7.6 fL (7.6-11.3); RBC Red Blood Cell Count 4.16 M/uL (3.86-4.86)
[2022-05-10 19:14] LABS: Potassium 3.7 mmol/L (3.5-5.1)
--- NOTE | 2022-05-10 19:35 | RAD REPORT ---
EXAM DESCRIPTION: RAD - Hip Right 2 View - 05/10/2022 7:16 pm CLINICAL HISTORY: PAIN COMPARISON: No comparisons FINDINGS/IMPRESSION: Intact right hip arthroplasty without evidence of acute fracture. No dislocatio n.
--- NOTE | 2022-05-10 19:37 | RAD REPORT ---
EXAM DESCRIPTION: RAD - Hand Left 3 View - 05/10/2022 7:15 pm CLINICAL HISTORY: PAIN COMPARISON: No comparisons FINDINGS/IMPRESSION: No acute fracture. No malalignment. Interphalangeal joint space narrowing. Dege nerative changes are present the base of the thumb.
--- NOTE | 2022-05-10 19:39 | RAD REPORT ---
EXAM DESCRIPTION: RAD - Hand Right 3 View - 05/10/2022 7:15 pm CLINICAL HISTORY: thumb pain COMPARISON: Hand Left 3 View dated 05/10/2022; Hip Right 2 View dated 05/10/2022 FINDINGS/IMPRESSION: No acute fracture. No malalignment. Mild interphalangeal joint space narrowing. Degenerative changes are present the base of the thumb.
--- NOTE | 2022-05-10 20:02 | RAD REPORT ---
EXAM DESCRIPTION: CT - [id number] - 05/10/2022 7:53 pm CLINICAL HISTORY: Trauma, head and neck injury. fall COMPARISON: No comparisons TECHNIQUE: Axial 5 mm thick images of the head were obtained. Axial 2 mm thick images of the cervical spine were obtained with sagittal and coronal reconstruction images generated and reviewed. All CT scans are performed using dose optimization technique as appropriate and may include automated exposure control or mA/KV adjustment according to patient size. FINDINGS: CT HEAD WITHOUT CONTRAST: No acute hemorrhage, hydrocephalus or extra-axial collection is identified.No areas of brain edema or midline shift. Chronic small vessel ischemic changes. The paranasal sinuses and mastoids are clear.The calvarium is intact. CT CERVICAL SPINE WITHOUT CONTRAST: No fracture or subluxation.No prevertebral soft tissues swelling is identified. Status post C5 throug h C7 ACDF. Incomplete osseous fusion noted at C6-7. Trace anterolisthesis of C3 on C4 neural foramina l narrowing is noted above the fusion at C4-5. There is also likely mild central spinal stenosis. IMPRESSION: No acute intracranial or cervical spine findings.
--- NOTE | 2022-05-10 20:26 | EDPHYS ---
Physician Documentation [facility] Name: Kathi Rodríguez Age: 76 yrs Sex: Female : 1945 Arrival Date: 05/10/2022 Time: 18:05 Bed 5 Private MD: ED Physician Quang Kendrick HPI: 05/10 18:50 This 76 yrs old Female presents to ER via Wheelchair with complaints of Fall Injury. ms3 18:50 76-year-old female with past medical history of diabetes and hypertension presents ms3 status post fall after tripping on the curb in the parking lot just prior to arrival in the emergency department. Patient denies loss of consciousness or taking blood thinners. Patient endorses nausea. Patient states her discomfort is a 5/10 and described as throbbing. Patient states it is unknown when her last tetanus vaccine was. Patient states she is having left wrist, right thumb, right hip pain. Patient denies alleviating or inciting factors.. Historical: - Allergies: 18:42 Levaquin; iw ROS: 18:50 Constitutional: Negative for fever, and chills. ENT: Negative for injury, pain, and ms3 discharge, Neck: Negative for injury, pain, and swelling, Cardiovascular: Negative for chest pain, and palpitations. Respiratory: Negative for shortness of breath, cough, wheezing, and pleuritic chest pain, Abdomen/GI: Negative for abdominal pain, nausea, vomiting, diarrhea, and constipation. 18:50 MS/extremity: Positive for Right thumb, right hip, left wrist pain. 18:50 Skin: Positive for Abrasion on the nose. 18:50 All other systems are negative. Exam: 18:50 Constitutional: This is a well developed, well nourished patient who is awake, alert, ms3 and in no acute distress. 18:50 Neck: Trachea midline, no cervical lymphadenopathy. Supple, full range of motion without nuchal rigidity, or vertebral point tenderness. No Meningismus. Chest/axilla: Normal chest wall appearance and motion. Nontender with no deformity. Cardiovascular: Regular rate and rhythm with a normal S1 and S2. No gallops, murmurs, or rubs. Normal PMI, no JVD. No pulse deficits. Respiratory: Lungs have equal breath sounds bilaterally, clear to auscultation and percussion. No rales, rhonchi or wheezes noted. No increased work of breathing, no retractions or nasal flaring. Abdomen/GI: Soft, non-tender, with normal bowel sounds. No distension or tympany. No guarding or rebound. No evidence of tenderness throughout. 18:50 Psych: Awake, alert, with orientation to person, place and time. Behavior, mood, and affect are within normal limits. 18:50 Head/face: Noted is abrasion(s), of the Nasal bridge. 18:50 Musculoskeletal/extremity: Right thumb tender to palpation, left wrist tender to palpation, right hip with mild tenderness to palpation.. 18:50 Skin: injury, abrasion(s), Right forearm. Vital Signs: 18:41 BP 146 / 57; Pulse 71; Resp 18 S; Temp 98.1; Pulse Ox 100% on R/A; Weight 81.65 kg; iw Height 5 ft. 0 in. (152.40 cm); 20:02 BP 134 / 61; Pulse 75; Resp 13; Pulse Ox 99% ; vc1 18:41 Body Mass Index 35.15 (81.65 kg, 152.40 cm) iw MDM: 18:30 Patient medically screened. ms3 18:50 Differential diagnosis: abrasion, closed head injury, contusion, fracture, sprain, ms3 strain. 20:22 Data reviewed: vital signs, nurses notes, lab test result(s), radiologic studies, CT jesica scan, plain films. 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 Test interpretation: by ED physician or midlevel provider: plain radiologic studies. Counseling: I had a detailed discussion with the patient and/or guardian regarding: the historical points, exam findings, and any diagnostic results supporting the discharge/admit diagnosis, lab results, radiology results, the need for outpatient follow up, for definitive care, an see supervisor, a orthopedic surgeon. 05/10 18:32 Order name: Basic Metabolic Panel; Complete Time: 19:20 ms3 05/10 18:32 Order name: CBC with Diff; Complete Time: 19:20 ms3 05/10 18:32 Order name: Type And Screen ms3 05/10 18:32 Order name: CT Head C Spine; Complete Time: 20:12 ms3 05/10 18:32 Order name: Hand Right 3 View XRAY; Complete Time: 20:12 ms3 05/10 18:32 Order name: Labs collected and sent; Complete Time: 19:09 ms3 05/10 18:32 Order name: Hip Right 2 View XRAY; Complete Time: 20:12 ms3 05/10 19:15 Order name: Hand Left 3 View; Complete Time: 20:12 EDMS Administered Medications: No medications were administered Disposition Summary: 05/10/22 20:25 Discharge Ordered Location: Home jesica Problem: new jesica Symptoms: have improved jesica Condition: Stable jesica Diagnosis - Fall on same level, unspecified jesica - Contusion of left hand jesica - Contusion of right hip jesica - Unspecified injury of head, initial encounter jesica - Contusion of other part of head - nasal jesica Followup: jesica - With: Private Physician - When: 2 - 3 days - Reason: Recheck today's complaints, Continuance of care, Re-evaluation by your physician Discharge Instructions: - Discharge Summary Sheet jesica - Contusion jesica - Head Injury, Adult jesica - Contusion, [id number] jesica - Fall Prevention in the Home, Adult jesica - Fall Prevention in the Home, Adult, [id number] jesica - Head Injury, Adult, [id number] jesica Forms: - Medication Reconciliation Form jesica - Thank You Letter jesica - Antibiotic Education jesica - Prescription Opioid Use jesica Prescriptions: - Tylenol 325 mg Oral Tablet - take 2 tablets by ORAL route every 6 hours as needed; 1 bottle; Refills: 0, jesica Product Selection Permitted Signatures: Dispatcher [employer] EDMS Quang Kendrick MD MD cha Williams, Irene, RN RN iw Sims, Marcus, DO DO ms3 Corrections: (The following items were deleted from the chart) 19:15 18:33 Wrist Left 3 View+RAD.RAD.[email or web address] ordered. EDMS EDMS
--- NOTE | 2022-05-10 20:26 | ER ---
Nurse's Notes [facility] Name: Kathi Rodríguez Age: 76 yrs Sex: Female : 1945 Arrival Date: 05/10/2022 Time: 18:05 Bed 5 Private MD: Diagnosis: Fall on same level, unspecified;Contusion of left hand;Contusion of right hip;Unspecified injury of head, initial encounter;Contusion of other part of head-nasal Presentation: 05/10 18:25 Chief complaint: Patient states: tripped in parking lot, c/o pain to right hip, right iw thumb, left wrist , also hit her nose and it was bleeding , not on blood thinners , no LOC. 18:25 Acuity: ROSHAN 4 iw 18:26 Coronavirus screen: At this time, the client does not indicate any symptoms associated iw with coronavirus-19. Ebola Screen: Patient negative for fever greater than or equal to 101.5 degrees Fahrenheit, and additional compatible Ebola Virus Disease symptoms Patient denies exposure to infectious person. Patient denies travel to an Ebola-affected area in the 21 days before illness onset. No symptoms or risks identified at this time. Risk Assessment: Do you want to hurt yourself or someone else? Patient reports no desire to harm self or others. Onset of symptoms was May 10, 2022. 18:26 Method Of Arrival: Wheelchair iw 18:42 Initial Sepsis Screen: Does the patient meet any 2 criteria? No. Patient's initial iw sepsis screen is negative. Does the patient have a suspected source of infection? No. Patient's initial sepsis screen is negative. 18:42 Acuity: ROSHAN 3 iw Historical: - Allergies: 18:42 Levaquin; iw Screenin:00 Abuse screen: Denies threats or abuse. Nutritional screening: No deficits noted. vc1 Tuberculosis screening: No symptoms or risk factors identified. Fall Risk None identified. Assessment: 19:31 General: Appears uncomfortable, Behavior is anxious, restless. Pain: Complains of pain aa9 in back. Vital Signs: 18:41 BP 146 / 57; Pulse 71; Resp 18 S; Temp 98.1; Pulse Ox 100% on R/A; Weight 81.65 kg; iw Height 5 ft. 0 in. (152.40 cm); 20:02 BP 134 / 61; Pulse 75; Resp 13; Pulse Ox 99% ; vc1 18:41 Body Mass Index 35.15 (81.65 kg, 152.40 cm) ED Course: 18:05 Patient arrived in ED. mr 18:22 Papa Devlin DO is Attending Physician. ms3 18:26 Triage completed. iw 18:30 Carmen Siu, RN is Primary Nurse. jg9 19:09 Attending Physician role handed off by Papa Devlin DO jesica 19:09 Quang Kendrick MD is Attending Physician. jesica 19:15 Hand Left 3 View In Process Unspecified. EDMS 19:16 Hand Right 3 View XRAY In Process Unspecified. EDMS 19:16 Hip Right 2 View XRAY In Process Unspecified. EDMS 19:54 CT Head C Spine In Process Unspecified. EDMS 20:03 Arm band placed on right wrist. vc1 Administered Medications: No medications were administered Medication: 20:03 VIS not applicable for this client. vc1 Outcome: 20:25 Discharge ordered by . jesica 20:41 Patient left the ED. mw2 Signatures: Dispatcher [employer] EDMS Quang Kendrick MD MD cha Rivera, Mary mr CruzCarrie, RN RN Juana Licea mw2 Papa Devlin DO DO ms3 Carmen Siu, RN MARSHA jg9 Brandy Bach RN RN vc1 Shreya Abbott, MARSHA RN aa9
[2022-05-10 21:32] VITALS: TEMP 98.1
[2022-05-10 21:35] VITALS: BP 134/61; O2SAT 99
== END 2022-05-10 20:41 | disposition home or self-care (01) ==
LOC: ER 17:52
DX: S09.90XA Unspecified injury of head, initial encounter (principal); S00.83XA Contusion of other part of head, initial encounter; S70.01XA Contusion of right hip, initial encounter; S60.222A Contusion of left hand, initial encounter; W18.09XA Striking against other object with subsequent fall, initial encounter; Y92.481 Parking lot as the place of occurrence of the external cause; Z88.1 Allergy status to other antibiotic agents
CPT/HCPCS: 36415; 70450; 72125; 80048; 85025; 86850; 86900; 86901

== ENCOUNTER 2022-07-19 11:19 | Emergency (ER) | payer OTHER ==
--- OUTSIDE RECORDS SUMMARY | 2022-07-19 11:24 | XMS REPORT | Continuity of Care Document ---
:1945 Author Organization [facility] t Address [address] [place] [address] Care Team Providers Name Role Phone Cheyanne Shah MD Primary Care Physician BRYAN_Fouzia Attending Clinician Unavailable Cheyanne Shah Attending Clinician [phone] José Luis Dugan MD Attending Clinician Elkin Montgomery MD Attending Clinician Jannie Rowan Attending Clinician Zoë Parnell MA Attending Clinician Unavailable Rebecca Anderson Attending Clinician Aurora Andersen DO Attending Clinician MD JOSÉ LUIS DUGAN Attending Clinician Unavailable Provider, Unknown Attending Clinician Unavailable Carmen Sheets MA Attending Clinician Unavailable ADRIEL CATES Attending Clinician Unavailable [email or web address] Attending Clinician Unavailable BRYAN_Fouzia Admitting Clinician Unavailable JOSÉ LUIS DUGAN Admitting Clinician Unavailable MD JOSÉ LUIS DUGAN Admitting Clinician Unavailable tamiko Admitting Clinician Unavailable Payers Payer Name Policy Type Policy Number Effective Date Expiration Date Sammy lundberg MEDICARE B-[place]: [id number] 2012 [employer] 00:00:00 CIGNA SUPPLEMENTAL - [id number] 2013 [employer] HEALTH AND 00:00:00 LIFE INSURANCE (MEDICARE SUPPLEMENT) Problems Condition Condition Condition Status Onset Resolution Last Treating Co mments Source Name Details Category Date Date Treatment Clinician Date Pain of Pain of Problem Active 2022-1 [place] left hip Left Hip 0-10 [facility] joint Joint 00:00: ty 00 [facility] Pain of Pain of Problem Active [facility] toe of Toe of 6-29 [facility] right foot Right Foot 00:00: ty 00 [facility] Clinics Dark Dark Problem Active [facility] stools Stools 4- [facility] 00:00: ty 00 [facility] Clinics HTN HTN Disease Active [facility] (hypertens (hypertens 3 st ion) ion) 00:00: Hospita 00 l HLD HLD Disease Active [facility] (hyperlipi (hyperlipi 3 st demia) demia) 00:00: Hospita 00 l Type 2 Type 2 Disease Active [facility] diabetes diabetes 3 st mellitus mellitus 00:00: Hospit a 00 l Hypothyroi Hypothyroi Disease Active M [facility]i dism dism 11-16 st 00:00: Hospita 00 l Osteoarthr Osteoarthr Disease Active M ethodi itis itis 11-01 st 00:00: Hospita 00 l Primary Primary Disease Active 2020-09 Overview: [facility] osteoarthr osteoarthr [address] itis of itis of 00:00: g of this Hospi ta right hip right hip 00 note l might be different from the original. Added automatic ally from request for surgery [id number] History of History of Problem Active [facility] fall Fall 01-04 [facility] 00:00: ty 00 [facility] Clinics Pain in Pain in Problem Active [facility] right hip Right Hip 01-04 Comm uni joint Joint 00:00: ty 00 [facility] Clinics Dizziness Dizziness Problem Active Swe valerie 4- [facility]i 00:00: ty 00 [facility] Clin[facility] Nausea and Nausea and Problem Active [facility] vomiting Vomiting 4 Commun i 00:00: ty 00 [facility] Clinics Urinary Urinary Problem Active 2019-09 [facility] tract Tract 2-07 [facility] infectious Infectious 00:00: ty disease Disease 00 Hospita l Clinics Confusiona Confusiona Problem Active 2019-09 [facility] l state l State 0- Communi 00:00: ty 00 [facility]ospita [facility] Clinics Pain in Pain in Problem Active 2019-09 [place] right arm Right Arm Comm uni 00:00: ty 00 [facility] Malaise Malaise Problem Active [place] 4-27 Communi 00:00: ty 00 [facility] Asthmatic Asthmatic Problem Active Swe valerie bronchitis Bronchitis 2-26 Co mmuni 00:00: ty 00 [facility] Allergic Allergic Problem Active [facility] reaction Reaction 11-06 Commun i to drug to Drug 00:00: ty 00 [facility] Cervical Cervical Disease Active Meth[facility] di spinal spinal 7-15 st stenosis stenosis 00:00: Hospit a 00 l Long-term Long-term Problem Active Swe valerie drug Drug 15 [facility]i therapy Therapy 00:00: ty 00 [facility] Essential Essential Problem Active Swe valerie hypertensi Hypertensi 3-06 Co mmuni on on 00:00: ty 00 [facility] Type 2 Type 2 Problem Active [place] diabetes Diabetes 18 Commun i mellitus Mellitus 00:00: ty 00 [facility] Claudicati Claudicati Problem Active S [facility] on on 12-27 Communi 00:00: ty 00 [facility] Low back Low Back Problem Active [facility] pain Pain 18 Communi 00:00: ty 00 [facility] Allergies, Adverse Reactions, Alerts Allergy Allergy Status Severity Reaction(s) Onset Inactive Treating Comm ents Source Name Type Date Date Clinician Pola Tidwell Active Other (See Patient M akin bartlett ty to Comments) 10-[address] adverse 00:00: remember. Hospit a reaction 00 l s to drug Dulaglut Propensi Active Palpitations Patient [facility] nikhil ty to 10-[address] adverse 00:00: remember. Hospit a reaction 00 l s to drug Levoflox Propensi Active Swelling [facility] acin ty to 10-12 st adverse 00:00: Hospita reaction 00 l s to drug Iodine Propensi Active Anaphylaxis IV DYE; Pa thodi ty to 03-12 REDNESS, st adverse 00:00: PASS OUT, Hospit a reaction 00 THROAT l s to SWELLED drug UP PER PT Levaquin Allergy Active Fatal Facial [place] to swelling Communi substanc ty e Hospita l Clinics Family History Family Member Diagnosis Comments Start Date Stop Date Source Natural brother Cancer [facility] Natural brother Diabetes [facility] Natural father Heart disease [facility] Natural father Lung disease [facility] Natural mother Hypertension [facility] Natural sister Cancer [facility] sister Diabetes [facility] Social History Social Habit Start Date Stop Date Quantity Comments Source Alcohol intake 2021-12-31 2021-12-31 Ex-drinker [facility] 00:[facility]:00 00:00:00 (finding) Hospital Tobacco use and 2021-05-21 2021-05-21 Smokeless tobacco [facility] exposure 00:00:00 00:00:00 non-user Hospital Sex Ass[birth year] At [birth year] [facility] 00:[facility]00 00:00:00 Hospital Smoking Status Start Date Stop Date Source Never smoked tobacco [facility] ospital Medications Ordered Filled Start Stop Current Ordering Indication Dosage Frequency Signature Comments Components Source Medication Medication Date Date Medication? Clinician (SIG) Name Name HYDROcodone Yes 1{tbl} Q4H Take 1 M ethodi -acetaminop 3-[address] hen (NORCO) 17:49: mouth Hospi ta 10-325 mg 01 every 4 l per tablet (four) hours as needed for moderate pain .acute pain. furosemide Yes 20mg QD Take 20 mg M ethodi (LASIX) 20 3-[address] mg tablet 17:49: in the Hospit a 01 morning. l LORAZepam Yes .5mg Take 0.5 [facility] (ATIVAN) 3-[address] 0.5 MG 17:49: mouth as Hospita tablet 01 needed in l the morning for anxiety. docusate 2021- No 100mg QD Take 100 Met hodi sodium 3-11 03-[address] (COLACE) 17:49: 00:00 mouth in Hosp jessie 100 MG 01 :00 the l capsule morning. VITAMIN B 2021- No Take by [facility] COMPLEX 3-10 03-[address] ORAL 17:49: 00:00 Hospita 45 :00 l BIOTIN ORAL 2021- No Take by Me thodi 3-10 03-[address] 17:49: 00:00 Hospita 45 :00 l vit 2021- No Take by [facility] A-D3-tocoph 11-[address] ersolan-vit 17:49: 00:00 Hospi ta K 2,000 45 :00 l unit- 2,000 mcg/mL liquid vit A/vit 2021- No 1{tbl} Q.5D Take 1 Met hodi C/vit 11-[address] E/zinc/vanessa 17:49: 00:00 mouth 2 Ho spita er 45 :00 (two) l (PRESERVISI times a ON day. ORAL) ubidecareno 2021- No 1{capsu Q.5D Take 1 Methodi ne (CO Q-10 11-18 le} capsule by s t ORAL) 17:49: 00:00 mouth 2 Hospita 45 :00 (two) l times a day. lisinopriL Yes 10mg QD Take 10 mg M ethodi (PRINIVIL) 3-[address] 10 mg 17:49: daily. Hospita tablet 43 l meclizine Yes meclizine Met hodi (ANTIVERT) 3-[address] 25 mg 17:49: tablet Hospita tablet 43 TAKE 1 l TABLET BY MOUTH THREE TIMES DAILY NEEDED fluticasone Yes 2{spray QD 2 sprays [facility] propionate 3-10 } by Each st (FLONASE) 17:49: Nare route Ho spita 50 43 daily. l mcg/actuati on nasal spray atorvastati Yes 20mg QD Take 20 mg Methodi n (LIPITOR) 3-[address] 20 MG 17:49: daily. Hospita tablet 43 Default OP l ins 50 mg daily insulin Yes 34U QD Inject 34 Metho di 70/30 NPH 3-[address] and regular 17:49: under the H ospita human 43 skin every l (HumuLIN morning. 70/30) 100 unit/mL (70-30) injection levothyroxi Yes 50ug QD Take 50 Met hodi ne 3-[address] (SYNTHROID, 17:49: mouth Hospi ta LEVOXYL) 50 43 daily. l mcg tablet metFORMIN Yes 1000mg Q.5D Take 1,000 [facility] (GLUCOPHAGE 3-[address] ) 1,000 mg 17:49: mouth 2 Hosp jessie tablet 43 (two) l times a day with meals. pantoprazol 0 Yes 40mg QD Take 40 mg Methodi e 3-[address] (PROTONIX) 17:49: daily. Hospi ta 40 MG EC 43 l tablet venlafaxine Yes 225mg QD Take 225 M ethodi (EFFEXOR) 3-[address] 75 MG 17:49: mouth Hospita tablet 43 nightly. l Takes 75 mg 3 tabs. (225 mg) benzonatate Yes 100mg Q.[id number] Take 100 [facility] (TESSALON) 3-[id number] 100 MG 17:49: 3D mouth 3 Hospita capsule 43 (three) l times a day as needed for cough. insulin NPH Yes 24U QD Inject 24 M ethodi hum/reg 3-[address] insulin hm 17:49: under the Ho spita (HUMULIN 43 skin l 70/30 U-100 nightly. INSULIN SUBQ) carboxymeth Yes 1[drp] [id number] Administer [facility] ylcellulose 3-10 [id number] [address] sodium 17:49: 3D both eyes Hospit a (REFRESH 43 3 (three) l OPHT) times a day as needed (dry eye). carboxymeth Yes 1{appli QD Administer [facility] ylcellulose 3-10 cation} 1 st sodium 17:49: applicatio Hospi ta (REFRESH 43 n to both l OPHT) eyes nightly. polyethylen 2021- No 17g QD Take 17 g Method[facility] e glycol 2-26 03-[address] (MIRALAX) 00:00: 00:00 daily for Ho spita 17 gram 00 :00 30 days. l packet aspirin 0 2021- No 81mg QD Take 81 mg Met hodi (ECOTRIN) 2-25 02-[address] 81 MG 14:32: 00:00 daily. Hospita enteric 23 :00 l coated tablet ferrous 2021- No 325mg Q.5D Take 1 Method i sulfate 325 11-05-[address] (65 FE) MG 00:00: 00:00 (325 mg Hos elvie tablet 00 :00 total) by l mouth 2 (two) times a day with meals for 30 days. sennosides- 2021- No 2{tbl} Q.5D Take 2 M ethodi docusate 11-05-[address] sodium 00:00: 00:00 mouth 2 Hospita (SENOKOT-S) 00 :00 (two) l 8.6-50 mg times a per tablet day for 30 days. [place]DROcodone 2021- [place] [id number] 1{tbl} Q6H Take 1 [facility] -acetaminop 11-05- tablet by st hen (NORCO) 00:00: 05:59 mouth Hosp jessie 10-325 mg 00 :00 every 6 l per tablet (six) hours as needed for severe pain for up to 5 days .acute pain, surgery [id number]. Max Daily Amount: 4 tablets doxycycline 2021- No 100mg Q.5D Take 2 Me thodi (VIBRAMYCIN 11-05- capsules st ) 50 MG 00:00: 05:59 (100 mg Hospit a capsule 00 :00 total) by l mouth 2 (two) times a day for 5 days. rivaroxaban Yes [id number] 10mg QD Take 1 Met hodi (XARELTO) 2-16 tablet (10 st 10 mg 00:00: mg total) Hospita tablet 00 by mouth l daily .deep vein thrombosis prevention in hip surgery, deep vein thrombosis prevention in knee replacemen t. celecoxib 2021- No 200mg QD Take 1 [facility] (CeleBREX) 10-27-[address] 200 MG 00:00: 04:59 (200 mg Hospita capsule 00 :00 total) by l mouth daily for 30 days. ondansetron 2021- No 4mg Q8H Take 1 Met hodi (Zofran) 4 10-27-27 tablet (4 st MG tablet 00:00: 05:59 mg total) Ho spita 00 :00 by mouth l every 8 (eight) hours as needed for nausea or vomiting for up to 10 days. HYDROcodone 2021- No [id number] 1{tbl} Q6H Take 1 [facility] -acetaminop [address] hen (NORCO) 00:00: 00:00 mouth Hosp jessie 10-325 mg 00 :00 every 6 l per tablet (six) hours as needed for severe pain for up to 10 days .acute pain, surgery [id number]. Max Daily Amount: 4 tablets lisinopril 2021- No 20mg QD Take 20 mg [facility] (PRINIVIL,Z 10-[address] ESTRIL) 20 11:48: 00:00 daily. Hosp jessie mg tablet 04 :00 l nut.tx.comp 2021- No 1{bottl Q.[id number] Take 1 [facility] . immune 10-12 e} [id number] Bottle by syst,reg 00:00: 05:59 3D mouth 3 Hosp jessie (Impact 00 :00 (three) l Advanced times a Recovery) day for 5 0.1 days. gram-1.12 kcal/mL liquid nabumetone 2020-09- No [id number] 750mg Q.5D Take 1 [facility] (RELAFEN) 10-[address] 750 MG 00:00: 00:00 (750 mg Hospita tablet 00 :00 total) by l mouth 2 (two) times a day. keTOROlac 2020-09- No [id number] 10mg Q.[id number] Take 1 [facility] (TORadol) 10-19 9107 [id number] tablet (10 st 10 mg 00:00: 05:59 3D mg total) Hospit a tablet 00 :00 by mouth 3 l (three) times a day with meals for 5 days. lisinopriL- 2020-09 Yes Method i hydrochloro - st thiazide 00:00: Hospita (PRINZIDE) 00 l 20-25 mg per tablet atorvastati atorvastati No 1 Q1D atorvastat [place] n 40 mg n 40 mg in 40 mg Commu ni tablet Take tablet Take tablet ty 1 tablet 1 tablet Take 1 Hospi ta every day every day tablet l by oral by oral every day Clin ics route. route. by oral route. Euthyrox 50 Euthyrox 50 No Euthyrox [facility] mcg tablet mcg tablet 50 mcg C ommuni Take 1 Take 1 tablet ty tablet by tablet by Take 1 Hos elvie mouth once mouth once tablet by l daily daily mouth once Clinics daily FreeStyle FreeStyle No FreeStyle [facility] Lite Strips Lite Strips Lite C ommuni USE 1 STRIP USE 1 STRIP Strips USE ty TO CHECK TO CHECK 1 STRIP TO H ospita GLUCOSE GLUCOSE CHECK l TWICE DAILY TWICE DAILY GLUCOSE Clinics TWICE DAILY Humulin Humulin No Humulin [facility] 70/30 U-100 70/30 U-100 70/30 Communi Insulin Insulin U-100 ty KwikPen 100 KwikPen 100 Insulin Hospita unit/mL unit/mL KwikPen l subcutaneou subcutaneou 100 C linics s INJECT 40 s INJECT 40 unit/mL UNITS UNITS subcutaneo SUBCUTANEOU SUBCUTANEOU us INJECT SLY IN THE SLY IN THE 40 UNITS MORNING AND MORNING AND SUBCUTANEO 30 UNITS 30 UNITS USLY IN SUBCUTANEOU SUBCUTANEOU THE SLY IN THE SLY IN THE MORNING EVENING EVENING AND 30 UNITS SUBCUTANEO USLY IN THE EVENING lisinopril lisinopril No lisinopril [facility] 10 mg 10 mg 10 mg Communi tablet Take tablet Take tablet ty 1 tablet by 1 tablet by Take 1 Hospita mouth once mouth once tablet by l daily daily mouth once Clinics daily lisinopril lisinopril No lisinopril [facility] 20 20 20 Communi mg-hydrochl mg-hydrochl mg-hydroch ty orothiazide orothiazide lorothiazi Hospita 25 mg 25 mg de 25 mg l tablet Take tablet Take tablet Clinics 1 tablet by 1 tablet by Take 1 mouth once mouth once tablet by daily daily mouth once daily meclizine meclizine No meclizine [facility] 25 mg 25 mg 25 mg Communi tablet TAKE tablet TAKE tablet ty 1 TABLET BY 1 TABLET BY TAKE 1 Hospita MOUTH THREE MOUTH THREE TABLET BY l TIMES DAILY TIMES DAILY MOUTH Clinics NEEDED NEEDED THREE TIMES DAILY NEEDED metformin metformin No metformin [facility] 1,000 mg 1,000 mg 1,000 mg Com sandro tablet Take tablet Take tablet ty 1 tablet by 1 tablet by Take 1 Hospita mouth twice mouth twice tablet by l daily daily mouth Clinics twice daily ondansetron ondansetron No ondansetro [place] 8 mg 8 mg n 8 mg Communi disintegrat disintegrat disintegra ty ing tablet ing tablet ting Hos elvie DISSOLVE 1 DISSOLVE 1 tablet l TABLET IN TABLET IN DISSOLVE 1 Clinics MOUTH TWICE MOUTH TWICE TABLET IN DAILY DAILY MOUTH NEEDED NEEDED TWICE DAILY NEEDED pantoprazol pantoprazol No pantoprazo [place] e 40 mg e 40 mg le 40 mg Commu ni tablet,ac tablet,ac tablet,del ty yed release yed release ayed H ospita TAKE 1 TAKE 1 release l TABLET BY TABLET BY TAKE 1 Cli nics MOUTH ONCE MOUTH ONCE TABLET BY DAILY DAILY MOUTH ONCE DAILY pen needle, pen needle, No pen S weeny diabetic 32 diabetic 32 needle, Communi gauge x gauge x diabetic ty " " 32 gauge x Hospita " l Clinics relion pen relion pen No relion pen [facility] needles 32g needles 32g needles Communi x 4mm 32g x x 4mm 32g x 32g x 4mm ty 4 mm misc 4 mm misc 32g x 4 mm Hospita misc l Clinics venlafaxine venlafaxine No venlafaxin [place] ER 75 mg ER 75 mg e ER 75 mg C ommuni capsule,ext capsule,ext capsule,ex ty ended ended tended Hospita release 24 release 24 release 24 l hr TAKE 3 hr TAKE 3 hr TAKE 3 Clinics CAPSULES BY CAPSULES BY CAPSULES MOUTH AT MOUTH AT BY MOUTH BEDTIME BEDTIME AT BEDTIME atorvastati atorvastati No atorvastat [place] n 40 mg n 40 mg in 40 mg Commu ni tablet TAKE tablet TAKE tablet ty 1 TABLET BY 1 TABLET BY TAKE 1 Hospita MOUTH ONCE MOUTH ONCE TABLET BY l DAILY FOR DAILY FOR MOUTH ONCE Clinics 90 DAYS 90 DAYS DAILY FOR 90 DAYS celecoxib celecoxib No celecoxib [facility] 200 mg 200 mg 200 mg Communi capsule capsule capsule ty TAKE 1 TAKE 1 TAKE 1 Hospita CAPSULE BY CAPSULE BY CAPSULE BY l MOUTH ONCE MOUTH ONCE MOUTH ONCE Clinics DAILY FOR DAILY FOR DAILY FOR 30 DAYS 30 DAYS 30 DAYS Euthyrox 50 Euthyrox 50 No Euthyrox [facility] mcg tablet mcg tablet 50 mcg C ommuni Take 1 Take 1 tablet ty tablet by tablet by Take 1 Hos elvie mouth once mouth once tablet by l daily daily mouth once Clinics daily FreeStyle FreeStyle No FreeStyle [facility] Lite Strips Lite Strips Lite C ommuni USE 1 STRIP USE 1 STRIP Strips USE ty TO CHECK TO CHECK 1 STRIP TO H ospita GLUCOSE GLUCOSE CHECK l TWICE DAILY TWICE DAILY GLUCOSE Clinics TWICE DAILY Humulin Humulin No Humulin [facility] 70/30 U-100 70/30 U-100 70/30 Communi Insulin Insulin U-100 ty KwikPen 100 KwikPen 100 Insulin Hospita unit/mL unit/mL KwikPen l subcutaneou subcutaneou 100 C linics s INJECT 15 s INJECT 15 unit/mL UNITS UNITS subcutaneo SUBCUTANEOU SUBCUTANEOU us INJECT SLY IN THE SLY IN THE 15 UNITS MORNING AND MORNING AND SUBCUTANEO 15 UNITS IN 15 UNITS IN USLY IN THE EVENING THE EVENING THE MORNING AND 15 UNITS IN THE EVENING hydrocodone hydrocodone No hydrocodon [facility] 10 10 e 10 Communi mg-acetamin mg-acetamin mg-acetami ty ophen 325 ophen 325 nophen 325 Hospita mg tablet mg tablet mg tablet l TAKE 1 TAKE 1 TAKE 1 Clinics TABLET BY TABLET BY TABLET BY MOUTH EVERY MOUTH EVERY MOUTH 6 HOURS 6 HOURS EVERY 6 NEEDED FOR NEEDED FOR HOURS SEVERE PAIN SEVERE PAIN NEEDED FOR FOR UP TO FOR UP TO SEVERE 10 DAYS 10 DAYS PAIN FOR MAXIMUM OF MAXIMUM OF UP TO 10 4 TABLETS 4 TABLETS DAYS PER DAY PER DAY MAXIMUM OF 4 TABLETS PER DAY lisinopril lisinopril No lisinopril [facility] 10 mg 10 mg 10 mg Communi tablet TAKE tablet TAKE tablet ty 1 TABLET BY 1 TABLET BY TAKE 1 Hospita MOUTH ONCE MOUTH ONCE TABLET BY l DAILY DAILY MOUTH ONCE Clinics DAILY lisinopril lisinopril No lisinopril [facility] 20 20 20 Communi mg-hydrochl mg-hydrochl mg-hydroch ty orothiazide orothiazide lorothiazi Hospita 25 mg 25 mg de 25 mg l tablet TAKE tablet TAKE tablet Clinics 1 TABLET BY 1 TABLET BY TAKE 1 MOUTH ONCE MOUTH ONCE TABLET BY DAILY DAILY MOUTH ONCE DAILY meclizine meclizine No meclizine [facility] 25 mg 25 mg 25 mg Communi tablet TAKE tablet TAKE tablet ty 1 TABLET BY 1 TABLET BY TAKE 1 Hospita MOUTH THREE MOUTH THREE TABLET BY l TIMES DAILY TIMES DAILY MOUTH Clinics NEEDED NEEDED THREE TIMES DAILY NEEDED metformin metformin No metformin [facility] 1,000 mg 1,000 mg 1,000 mg Com sandro tablet TAKE tablet TAKE tablet ty 1 TABLET BY 1 TABLET BY TAKE 1 Hospita MOUTH TWICE MOUTH TWICE TABLET BY l DAILY DAILY MOUTH Clinics TWICE DAILY ondansetron ondansetron No ondansetro [facility] 8 mg 8 mg n 8 mg Communi disintegrat disintegrat disintegra ty ing tablet ing tablet ting Hos elvie DISSOLVE 1 DISSOLVE 1 tablet l TABLET IN TABLET IN DISSOLVE 1 Clinics MOUTH TWICE MOUTH TWICE TABLET IN DAILY DAILY MOUTH NEEDED NEEDED TWICE DAILY NEEDED ondansetron ondansetron No ondansetro [facility] HCl 4 mg HCl 4 mg n HCl 4 mg C ommuni tablet TAKE tablet TAKE tablet ty 1 TABLET BY 1 TABLET BY TAKE 1 Hospita MOUTH EVERY MOUTH EVERY TABLET BY l 8 HOURS 8 HOURS MOUTH Cl inics NEEDED FOR NEEDED FOR EVERY 8 NAUSEA AND NAUSEA AND HOURS VOMITING VOMITING NEEDED FOR FOR UP TO FOR UP TO NAUSEA AND 10 DAYS 10 DAYS VOMITING FOR UP TO 10 DAYS pantoprazol pantoprazol No pantoprazo [facility] e 40 mg e 40 mg le 40 mg Commu ni tablet,ac tablet,ac tablet,del ty yed release yed release ayed H ospita TAKE 1 TAKE 1 release l TABLET BY TABLET BY TAKE 1 Cli nics MOUTH ONCE MOUTH ONCE TABLET BY DAILY DAILY MOUTH ONCE DAILY pen needle, pen needle, No pen S weeny diabetic 32 diabetic 32 needle, Communi gauge x gauge x diabetic ty " " 32 gauge x Hospita " l Clinics relion pen relion pen No relion pen [facility] needles 32g needles 32g needles Communi x 4mm 32g x x 4mm 32g x 32g x 4mm ty 4 mm misc 4 mm misc 32g x 4 mm Hospita misc l Clinics triazolam triazolam No triazolam [facility] 0.25 mg 0.25 mg 0.25 mg Commun i tablet TAEK tablet TAEK tablet ty 1 TABLET BY 1 TABLET BY TAEK 1 Hospita MOUTH ONE MOUTH ONE TABLET BY l HOUR PRIOR HOUR PRIOR MOUTH ONE Clinics TO DENTAL TO DENTAL HOUR PRIOR APPOINTMENT APPOINTMENT TO DENTAL . BRINGING . BRINGING APPOINTMEN REMAINING REMAINING T. TABLETS TABLETS BRINGING WITH YOU TO WITH YOU TO REMAINING APPOINTMENT APPOINTMENT TABLETS WITH YOU TO APPOINTMEN T venlafaxine venlafaxine No venlafaxin [facility] ER 75 mg ER 75 mg e ER 75 mg C ommuni capsule,ext capsule,ext capsule,ex ty ended ended tended Hospita release 24 release 24 release 24 l hr TAKE 3 hr TAKE 3 hr TAKE 3 Clinics CAPSULES BY CAPSULES BY CAPSULES MOUTH AT MOUTH AT BY MOUTH BEDTIME BEDTIME AT BEDTIME Xarelto 10 Xarelto 10 No Xarelto 10 [facility] mg tablet mg tablet mg tablet Communi TAKE 1 TAKE 1 TAKE 1 ty TABLET BY TABLET BY TABLET BY Hospita MOUTH ONCE MOUTH ONCE MOUTH ONCE l DAILY DAILY DAILY Clinics atorvastati atorvastati No atorvastat [facility] n 40 mg n 40 mg in 40 mg Commu ni tablet TAKE tablet TAKE tablet ty 1 TABLET BY 1 TABLET BY TAKE 1 Hospita MOUTH ONCE MOUTH ONCE TABLET BY l DAILY FOR DAILY FOR MOUTH ONCE Clinics 90 DAYS 90 DAYS DAILY FOR 90 DAYS colchicine colchicine No 1 BID colchicine [facility] 0.6 mg 0.6 mg 0.6 mg Communi tablet Take tablet Take tablet ty 1 tablet 1 tablet Take 1 Hospi ta twice a day twice a day tablet l by oral by oral twice a Clinic s route as route as day by needed. needed. oral route as needed. estradiol estradiol No estradiol [facility] 0.01% (0.1 0.01% (0.1 0.01% (0.1 Communi mg/gram) mg/gram) mg/gram) ty vaginal vaginal vaginal Hospit a cream cream cream l INSERT INSERT INSERT Clinics 0.5GM WITH 0.5GM WITH 0.5GM WITH APPLICATOR APPLICATOR APPLICATOR VAGINALLY VAGINALLY VAGINALLY DIRECTED DIRECTED THREE TIMES THREE TIMES DIRECTED A WEEK A WEEK THREE TIMES A WEEK Euthyrox 50 Euthyrox 50 No Euthyrox [facility] mcg tablet mcg tablet 50 mcg C ommuni TAKE 1 TAKE 1 tablet ty TABLET BY TABLET BY TAKE 1 Hos elvie MOUTH ONCE MOUTH ONCE TABLET BY l DAILY DAILY MOUTH ONCE Clinics DAILY FreeStyle FreeStyle No FreeStyle [facility] Abel 14 Abel 14 Abel 14 Com sandro [facility] [place] [employer] [place] [employer] [employer] [place] ty USE USE USE Hospita DIRECTED DIRECTED DIRECTED l Clinics FreeStyle FreeStyle No FreeStyle [facility] Abel 14 Abel 14 Abel 14 Com sandro Day Sensor Day Sensor Day Sensor ty kit USE kit USE kit USE Hospita DIRECTED DIRECTED DIRECTED l Clinics FreeStyle FreeStyle No FreeStyle [facility] Lite Strips Lite Strips Lite C ommuni USE 1 STRIP USE 1 STRIP Strips USE ty TO CHECK TO CHECK 1 STRIP TO H ospita GLUCOSE GLUCOSE CHECK l TWICE DAILY TWICE DAILY GLUCOSE Clinics TWICE DAILY Humulin Humulin No Humulin [facility] 70/30 U-100 70/30 U-100 70/30 Communi Insulin Insulin U-100 ty KwikPen 100 KwikPen 100 Insulin Hospita unit/mL unit/mL KwikPen l subcutaneou subcutaneou 100 C linics s INJECT 40 s INJECT 40 unit/mL UNITS UNITS subcutaneo SUBCUTANEOU SUBCUTANEOU us INJECT SLY IN THE SLY IN THE 40 UNITS MORNING AND MORNING AND SUBCUTANEO 30 UNITS IN 30 UNITS IN USLY IN THE EVENING THE EVENING THE MORNING AND 30 UNITS IN THE EVENING indomethaci indomethaci No 1capsul BID indomethac [facility] n 50 mg n 50 mg e(s) in 50 mg Commu ni capsule capsule capsule ty Take 1 Take 1 Take 1 Hospita capsule capsule capsule l twice a day twice a day twice a Clinics by oral by oral day by route as route as oral route needed. needed. as needed. lisinopril lisinopril No lisinopril [facility] 10 mg 10 mg 10 mg Communi tablet Take tablet Take tablet ty 1 tablet by 1 tablet by Take 1 Hospita mouth once mouth once tablet by l daily daily mouth once Clinics daily lisinopril lisinopril No lisinopril [facility] 20 20 20 Communi mg-hydrochl mg-hydrochl mg-hydroch ty orothiazide orothiazide lorothiazi Hospita 25 mg 25 mg de 25 mg l tablet Take tablet Take tablet Clinics 1 tablet by 1 tablet by Take 1 mouth once mouth once tablet by daily daily mouth once daily meclizine meclizine No meclizine [place] 25 mg 25 mg 25 mg [facility] tablet TAKE tablet TAKE tablet ty 1 TABLET BY 1 TABLET BY TAKE 1 Hospita MOUTH THREE MOUTH THREE TABLET BY l TIMES DAILY TIMES DAILY MOUTH Clinics NEEDED NEEDED THREE TIMES DAILY NEEDED oxybutynin oxybutynin No oxybutynin [place] chloride ER chloride ER chloride [facility] 10 mg 10 mg ER 10 mg ty tablet,exte tablet,exte tablet,ext Hospita nded nded ended l release 24 release 24 release 24 Clinics hr TAKE 1 hr TAKE 1 hr TAKE 1 TABLET BY TABLET BY TABLET BY MOUTH ONCE MOUTH ONCE MOUTH ONCE DAILY DAILY DAILY pantoprazol pantoprazol No pantoprazo [place] e 40 mg e 40 mg le 40 mg Commu ni tablet,ac tablet,ac tablet,del ty yed release yed release ayed H [facility]spita Take 1 Take 1 release l tablet by tablet by Take 1 Cli nics mouth once mouth once tablet by daily daily mouth once daily pen needle, pen needle, No pen S ween[facility] diabetic 32 diabetic 32 needle, [facility] gauge x gauge x diabetic ty " USE " USE 32 gauge x Hospita DIRECTED DIRECTED " USE l TWICE DAILY TWICE DAILY C linics WITH PEN WITH PEN DIRECTED TWICE DAILY WITH PEN relion pen relion pen No relion pen [place] needles 32g needles 32g needles [facility] x 4mm 32g x x 4mm 32g x 32g x 4mm ty 4 mm misc 4 mm misc 32g x 4 mm [facility]ita misc l Clinics tramadol 50 tramadol 50 No 1 BID tramadol [place] mg tablet mg tablet 50 mg Comm uni Take 1 Take 1 tablet ty tablet tablet Take 1 Hospita twice a day twice a day tablet l by oral by oral twice a Clinic s route as route as day by needed. needed. oral route as needed. venlafaxine venlafaxine No venlafaxin [place] ER 75 mg ER 75 mg e ER 75 mg C [facility]i capsule,ext capsule,ext capsule,ex ty ended ended tended Hospita release 24 release 24 release 24 l hr TAKE 3 hr TAKE 3 hr TAKE 3 Clinics CAPSULES BY CAPSULES BY CAPSULES MOUTH AT MOUTH AT BY MOUTH BEDTIME BEDTIME AT BEDTIME atorvastati atorvastati No atorvastat [place] n 40 mg n 40 mg in 40 mg [facility] ni tablet TAKE tablet TAKE tablet ty 1 TABLET BY 1 TABLET BY TAKE 1 Hospita MOUTH ONCE MOUTH ONCE TABLET BY l DAILY FOR DAILY FOR MOUTH ONCE Clinics 90 DAYS 90 DAYS DAILY FOR 90 DAYS colchicine colchicine No 1 BID colchicine [place] 0.6 mg 0.6 mg 0.6 mg [facility] tablet Take tablet Take tablet ty 1 tablet 1 tablet Take 1 Hospi ta twice a day twice a day tablet l by oral by oral twice a Clinic s route as route as day by needed. needed. oral route as needed. estradiol estradiol No estradiol [place] 0.01% (0.1 0.01% (0.1 0.01% (0.1 [facility] mg/gram) mg/gram) mg/gram) ty vaginal vaginal vaginal Hospit a cream cream cream l INSERT INSERT INSERT Clinics 0.5GM WITH 0.5GM WITH 0.5GM WITH APPLICATOR APPLICATOR APPLICATOR VAGINALLY VAGINALLY VAGINALLY DIRECTED DIRECTED THREE TIMES THREE TIMES DIRECTED A WEEK A WEEK THREE TIMES A WEEK Euthyrox 50 Euthyrox 50 No Euthyrox [place] mcg tablet mcg tablet 50 mcg C [facility] TAKE 1 TAKE 1 tablet ty TABLET BY TABLET BY TAKE 1 [facility] MOUTH ONCE MOUTH ONCE TABLET BY l DAILY DAILY MOUTH ONCE Clinics DAILY FreeStyle FreeStyle No FreeStyle [place] Abel 14 Abel 14 Abel 14 Com sandro [place] [employer] [place] [employer] [place] ty USE USE USE Hospita DIRECTED DIRECTED DIRECTED l Clinics FreeStyle FreeStyle No FreeStyle [place] Abel 14 Abel 14 Abel 14 Com sandro Day Sensor Day Sensor Day Sensor ty kit USE kit USE kit USE Hospita DIRECTED DIRECTED DIRECTED l Clinics FreeStyle FreeStyle No FreeStyle [place] Lite Strips Lite Strips Lite C [facility] USE 1 STRIP USE 1 STRIP Strips USE ty TO CHECK TO CHECK 1 STRIP TO H [facility]spita GLUCOSE GLUCOSE CHECK l TWICE DAILY TWICE DAILY GLUCOSE Clinics TWICE DAILY Humulin Humulin No Humulin [place] 70/30 U-100 70/30 U-100 70/30 [facility] Insulin Insulin U-100 ty KwikPen 100 KwikPen 100 Insulin Hospita unit/mL unit/mL KwikPen l subcutaneou subcutaneou 100 C linics s INJECT 40 s INJECT 40 unit/mL UNITS UNITS subcutaneo SUBCUTANEOU SUBCUTANEOU us INJECT SLY IN THE SLY IN THE 40 UNITS MORNING AND MORNING AND SUBCUTANEO 30 UNITS IN 30 UNITS IN USLY IN THE EVENING THE EVENING THE MORNING AND 30 UNITS IN THE EVENING indomethaci indomethaci No indomethac [place] n 50 mg n 50 mg in 50 mg Commu ni capsule capsule capsule ty Take 1 Take 1 Take 1 Hospita capsule capsule capsule l twice a day twice a day twice a Clinics by oral by oral day by route as route as oral route needed. needed. as needed. lisinopril lisinopril No lisinopril [place] 10 mg 10 mg 10 mg [facility] tablet Take tablet Take tablet ty 1 tablet by 1 tablet by Take 1 Hospita mouth once mouth once tablet by l daily daily mouth once Clinics daily lisinopril lisinopril No lisinopril [place] 20 20 20 [facility] mg-hydrochl mg-hydrochl mg-hydroch ty orothiazide orothiazide lorothiazi [facility] 25 mg 25 mg de 25 mg l tablet Take tablet Take tablet Clinics 1 tablet by 1 tablet by Take 1 mouth once mouth once tablet by daily daily mouth once daily meclizine meclizine No meclizine [place] 25 mg 25 mg 25 mg [facility] tablet TAKE tablet TAKE tablet ty 1 TABLET BY 1 TABLET BY TAKE 1 Hospita MOUTH THREE MOUTH THREE TABLET BY l TIMES DAILY TIMES DAILY MOUTH Clinics NEEDED NEEDED THREE TIMES DAILY NEEDED oxybutynin oxybutynin No oxybutynin [place] chloride ER chloride ER chloride [facility] 10 mg 10 mg ER 10 mg ty tablet,exte tablet,exte tablet,ext Hospita nded nded ended l release 24 release 24 release 24 Clinics hr TAKE 1 hr TAKE 1 hr TAKE 1 TABLET BY TABLET BY TABLET BY MOUTH ONCE MOUTH ONCE MOUTH ONCE DAILY DAILY DAILY pantoprazol pantoprazol No pantoprazo [place] e 40 mg e 40 mg le 40 mg Commu ni tablet,ac tablet,ac tablet,del ty yed release yed release ayed [facility] Take 1 Take 1 release l tablet by tablet by Take 1 Cli nics mouth once mouth once tablet by daily daily mouth once daily pen needle, pen needle, No pen S weeny diabetic 32 diabetic 32 needle, [facility] gauge x gauge x diabetic ty " USE " USE 32 gauge x Hospita DIRECTED DIRECTED " USE l TWICE DAILY TWICE DAILY C linics WITH PEN WITH PEN DIRECTED TWICE DAILY WITH PEN relion pen relion pen No relion pen [place] needles 32g needles 32g needles [facility] x 4mm 32g x x 4mm 32g x 32g x 4mm ty 4 mm misc 4 mm misc 32g x 4 mm [facility] misc l Clinics tramadol 50 tramadol 50 No tramadol [place] mg tablet mg tablet 50 mg Comm uni Take 1 Take 1 tablet ty tablet tablet Take 1 Hospita twice a day twice a day tablet l by oral by oral twice a Clinic s route as route as day by needed. needed. oral route as needed. venlafaxine venlafaxine No venlafaxin [place] ER 75 mg ER 75 mg e ER 75 mg C [facility] capsule,ext capsule,ext capsule,ex ty ended ended tended Hospita release 24 release 24 release 24 l hr TAKE 3 hr TAKE 3 hr TAKE 3 Clinics CAPSULES BY CAPSULES BY CAPSULES MOUTH AT MOUTH AT BY MOUTH BEDTIME BEDTIME AT BEDTIME Alive Alive No Alive [place] Immune Immune Immune [facility] ty Hospita Clinics atorvastati atorvastati No atorvastat [place] n 40 mg n 40 mg in 40 mg Commu ni tablet TAKE tablet TAKE tablet ty 1 TABLET BY 1 TABLET BY TAKE 1 Hospita MOUTH ONCE MOUTH ONCE TABLET BY l DAILY FOR DAILY FOR MOUTH ONCE Clinics 90 DAYS 90 DAYS DAILY FOR 90 DAYS Ellura Ellura No Ellura [facility] ty [facility] estradiol estradiol No estradiol [place] 0.01% (0.1 0.01% (0.1 0.01% (0.1 [facility] mg/gram) mg/gram) mg/gram) ty vaginal vaginal vaginal Hospit a cream cream cream l INSERT INSERT INSERT Clinics 0.5GM WITH 0.5GM WITH 0.5GM WITH APPLICATOR APPLICATOR APPLICATOR VAGINALLY VAGINALLY VAGINALLY DIRECTED DIRECTED THREE TIMES THREE TIMES DIRECTED A WEEK A WEEK THREE TIMES A WEEK Euthyrox 50 Euthyrox 50 No Euthyrox [place] mcg tablet mcg tablet 50 mcg [facility] Take 1 Take 1 tablet ty tablet by tablet by Take 1 Hos [facility] mouth once mouth once tablet by l daily daily mouth once Clinics daily FreeStyle FreeStyle No FreeStyle [place] Abel 14 Abel 14 Abel 14 Com [place] [employer] [place] [employer] [place] [employer] [place] ty USE USE USE Hospita DIRECTED DIRECTED DIRECTED l Clinics FreeStyle FreeStyle No FreeStyle [place] Abel 14 Abel 14 Abel 14 Com sandro Day Sensor Day Sensor Day Sensor ty kit USE kit USE kit USE Hospita DIRECTED DIRECTED DIRECTED l Clinics FreeStyle FreeStyle No FreeStyle [place] Lite Strips Lite Strips Lite [facility] USE 1 STRIP USE 1 STRIP Strips USE ty TO CHECK TO CHECK 1 STRIP TO H ospita GLUCOSE GLUCOSE CHECK l TWICE DAILY TWICE DAILY GLUCOSE Clinics TWICE DAILY Humulin Humulin No Humulin [place] 70/30 U-100 70/30 U-100 70/30 [facility] Insulin Insulin U-100 ty KwikPen 100 KwikPen 100 Insulin Hospita unit/mL unit/mL KwikPen l subcutaneou subcutaneou 100 C linics s INJECT 40 s INJECT 40 unit/mL UNITS UNITS subcutaneo SUBCUTANEOU SUBCUTANEOU us INJECT SLY IN THE SLY IN THE 40 UNITS MORNING AND MORNING AND SUBCUTANEO 30 UNITS IN 30 UNITS IN USLY IN THE EVENING THE EVENING THE MORNING AND 30 UNITS IN THE EVENING indomethaci indomethaci No indomethac [place] n 50 mg n 50 mg in 50 mg Commu ni capsule capsule capsule ty Take 1 Take 1 Take 1 Hospita capsule capsule capsule l twice a day twice a day twice a Clinics by oral by oral day by route as route as oral route needed. needed. as needed. lisinopril lisinopril No lisinopril [place] 10 mg 10 mg 10 mg [facility] tablet Take tablet Take tablet ty 1 tablet by 1 tablet by Take 1 Hospita mouth once mouth once tablet by l daily daily mouth once Clinics daily lisinopril lisinopril No lisinopril [place] 20 20 20 [facility] mg-hydrochl mg-hydrochl mg-hydroch ty orothiazide orothiazide lorothiazi [facility] 25 mg 25 mg de 25 mg l tablet Take tablet Take tablet Clinics 1 tablet by 1 tablet by Take 1 mouth once mouth once tablet by daily daily mouth once daily meclizine meclizine No meclizine [place] 25 mg 25 mg 25 mg [facility] tablet TAKE tablet TAKE tablet ty 1 TABLET BY 1 TABLET BY TAKE 1 Hospita MOUTH THREE MOUTH THREE TABLET BY l TIMES DAILY TIMES DAILY MOUTH Clinics NEEDED NEEDED THREE TIMES DAILY NEEDED oxybutynin oxybutynin No oxybutynin [place] chloride ER chloride ER chloride [facility] 10 mg 10 mg ER 10 mg ty tablet,exte tablet,exte tablet,ext Hospita nded nded ended l release 24 release 24 release 24 Clinics hr TAKE 1 hr TAKE 1 hr TAKE 1 TABLET BY TABLET BY TABLET BY MOUTH ONCE MOUTH ONCE MOUTH ONCE DAILY DAILY DAILY pantoprazol pantoprazol No pantoprazo [place] e 40 mg e 40 mg le 40 mg Commu ni tablet,ac tablet,ac tablet,del ty yed release yed release ayed H [facility]spita Take 1 Take 1 release l tablet by tablet by Take 1 Cli nics mouth once mouth once tablet by daily daily mouth once daily pen needle, pen needle, No pen S weeny diabetic 32 diabetic 32 needle, [facility] gauge x gauge x diabetic ty " USE " USE 32 gauge x Hospita DIRECTED DIRECTED " USE l TWICE DAILY TWICE DAILY C linics WITH PEN WITH PEN DIRECTED TWICE DAILY WITH PEN PreserVisio PreserVisio No PreserVisi [place] n AREDS n AREDS on AREDS Commu ni ty Hospita l Clinics relion pen relion pen No relion pen [place] needles 32g needles 32g needles [facility] x 4mm 32g x x 4mm 32g x 32g x 4mm ty 4 mm misc 4 mm misc 32g x 4 mm Hospita misc l Clinics Super B Super B No Super B [place] Complex 100 Complex 100 Complex [facility] tablet Take tablet Take 100 tablet ty by oral by oral Take by Hospit a route. route. oral l route. Clinics tramadol 50 tramadol 50 No tramadol [place] mg tablet mg tablet 50 mg Comm uni Take 1 Take 1 tablet ty tablet tablet Take 1 Hospita twice a day twice a day tablet l by oral by oral twice a Clinic s route as route as day by needed. needed. oral route as needed. venlafaxine venlafaxine No venlafaxin [place] ER 75 mg ER 75 mg e ER 75 mg C [facility] capsule,ext capsule,ext capsule,ex ty ended ended tended Hospita release 24 release 24 release 24 l hr TAKE 3 hr TAKE 3 hr TAKE 3 Clinics CAPSULES BY CAPSULES BY CAPSULES MOUTH AT MOUTH AT BY MOUTH BEDTIME BEDTIME AT BEDTIME atorvastati atorvastati No atorvastat [place] n 20 mg n 20 mg in 20 mg Commu ni tablet TAKE tablet TAKE tablet ty 1 TABLET BY 1 TABLET BY TAKE 1 Hospita MOUTH ONCE MOUTH ONCE TABLET BY l DAILY DAILY MOUTH ONCE Clinics DAILY Euthyrox 50 Euthyrox 50 No Euthyrox [place] mcg tablet mcg tablet 50 mcg C [facility] TAKE 1 TAKE 1 tablet ty TABLET BY TABLET BY TAKE 1 Hos [facility] MOUTH ONCE MOUTH ONCE TABLET BY l DAILY DAILY MOUTH ONCE Clinics DAILY FreeStyle FreeStyle No FreeStyle [place] Lite Strips Lite Strips Lite C [facility] USE 1 STRIP USE 1 STRIP Strips USE ty TO CHECK TO CHECK 1 STRIP TO H ospita GLUCOSE GLUCOSE CHECK l TWICE DAILY TWICE DAILY GLUCOSE Clinics TWICE DAILY Humulin Humulin No Humulin [place] 70/30 U-100 70/30 U-100 70/30 [facility] Insulin Insulin U-100 ty KwikPen 100 KwikPen 100 Insulin Hospita unit/mL unit/mL KwikPen l subcutaneou subcutaneou 100 C linics s INJECT 40 s INJECT 40 unit/mL UNITS UNITS subcutaneo SUBCUTANEOU SUBCUTANEOU us INJECT SLY IN THE SLY IN THE 40 UNITS MORNING AND MORNING AND SUBCUTANEO 30 UNITS 30 UNITS USLY IN SUBCUTANEOU SUBCUTANEOU THE SLY IN THE SLY IN THE MORNING EVENING EVENING AND 30 UNITS SUBCUTANEO USLY IN THE EVENING lisinopril lisinopril No lisinopril [place] 10 mg 10 mg 10 mg [facility] tablet TAKE tablet TAKE tablet ty 1 TABLET BY 1 TABLET BY TAKE 1 Hospita MOUTH ONCE MOUTH ONCE TABLET BY l DAILY DAILY MOUTH ONCE Clinics DAILY lisinopril lisinopril No lisinopril [place] 20 20 20 [facility] mg-hydrochl mg-hydrochl mg-hydroch ty orothiazide orothiazide lorothiazi [facility] 25 mg 25 mg de 25 mg l tablet Take tablet Take tablet Clinics 1 tablet by 1 tablet by Take 1 mouth once mouth once tablet by daily daily mouth once daily meclizine meclizine No 1 TID meclizine [place] 25 mg 25 mg 25 mg [facility] tablet Take tablet Take tablet ty 1 tablet 3 1 tablet 3 Take 1 H ospita times a day times a day tablet 3 l by oral by oral times a Clinic s route as route as day by needed. needed. oral route as needed. metformin metformin No metformin [place] 1,000 mg 1,000 mg 1,000 mg Com sandro tablet TAKE tablet TAKE tablet ty 1 TABLET BY 1 TABLET BY TAKE 1 Hospita MOUTH TWICE MOUTH TWICE TABLET BY l DAILY DAILY MOUTH Clinics TWICE DAILY Myrbetriq Myrbetriq No 1 Q1D Myrbetriq [place] 25 mg 25 mg 25 mg [facility] tablet,exte tablet,exte tablet,ext ty nded nded ended Hospita release release release l Take 1 Take 1 Take 1 Clinics tablet tablet tablet every day every day every day by oral by oral by oral route. route. route. ondansetron ondansetron No 1 BID ondansetro [place] 8 mg 8 mg n 8 mg [facility] disintegrat disintegrat disintegra ty ing tablet ing tablet ting [facility] Place 1 Place 1 tablet l tablet tablet Place 1 Clinics twice a day twice a day tablet by by twice a translingua translingua day by l route as l route as translingu needed. needed. al route as needed. oxybutynin oxybutynin No oxybutynin [place] chloride ER chloride ER chloride [facility] 5 mg 5 mg ER 5 mg ty tablet,exte tablet,exte tablet,ext Hospita nded nded ended l release 24 release 24 release 24 Clinics hr TAKE 1 hr TAKE 1 hr TAKE 1 TABLET BY TABLET BY TABLET BY MOUTH ONCE MOUTH ONCE MOUTH ONCE DAILY DAILY DAILY pantoprazol pantoprazol No pantoprazo [place] e 40 mg e 40 mg le 40 mg Commu ni tablet,ac tablet,ac tablet,del ty yed release yed release ayed H [facility]spita TAKE 1 TAKE 1 release l TABLET BY TABLET BY TAKE 1 Cli nics MOUTH ONCE MOUTH ONCE TABLET BY DAILY DAILY MOUTH ONCE DAILY venlafaxine venlafaxine No venlafaxin [place] ER 75 mg ER 75 mg e ER 75 mg C [facility] capsule,ext capsule,ext capsule,ex ty ended ended tended Hospita release 24 release 24 release 24 l hr TAKE 3 hr TAKE 3 hr TAKE 3 Clinics CAPSULES BY CAPSULES BY CAPSULES MOUTH AT MOUTH AT BY MOUTH BEDTIME BEDTIME AT BEDTIME atorvastati atorvastati No atorvastat [place] n 20 mg n 20 mg in 20 mg Commu ni tablet TAKE tablet TAKE tablet ty 1 TABLET BY 1 TABLET BY TAKE 1 Hospita MOUTH ONCE MOUTH ONCE TABLET BY l DAILY DAILY MOUTH ONCE Clinics DAILY Euthyrox 50 Euthyrox 50 No Euthyrox [place] mcg tablet mcg tablet 50 mcg C [facility]i TAKE 1 TAKE 1 tablet ty TABLET BY TABLET BY TAKE 1 [facility] MOUTH ONCE MOUTH ONCE TABLET BY l DAILY DAILY MOUTH ONCE Clinics DAILY FreeStyle FreeStyle No FreeStyle [place] Lite Strips Lite Strips Lite C [facility] USE 1 STRIP USE 1 STRIP Strips USE ty TO CHECK TO CHECK 1 STRIP TO H ospita GLUCOSE GLUCOSE CHECK l TWICE DAILY TWICE DAILY GLUCOSE Clinics TWICE DAILY Humulin Humulin No Humulin [place] 70/30 U-100 70/30 U-100 70/30 [facility] Insulin Insulin U-100 ty KwikPen 100 KwikPen 100 Insulin Hospita unit/mL unit/mL KwikPen l subcutaneou subcutaneou 100 C linics s INJECT 40 s INJECT 40 unit/mL UNITS UNITS subcutaneo SUBCUTANEOU SUBCUTANEOU us INJECT SLY IN THE SLY IN THE 40 UNITS MORNING AND MORNING AND SUBCUTANEO 30 UNITS 30 UNITS USLY IN SUBCUTANEOU SUBCUTANEOU THE SLY IN THE SLY IN THE MORNING EVENING EVENING AND 30 UNITS SUBCUTANEO USLY IN THE EVENING lisinopril lisinopril No lisinopril [place] 10 mg 10 mg 10 mg [facility] tablet TAKE tablet TAKE tablet ty 1 TABLET BY 1 TABLET BY TAKE 1 Hospita MOUTH ONCE MOUTH ONCE TABLET BY l DAILY DAILY MOUTH ONCE Clinics DAILY lisinopril lisinopril No lisinopril [place] 20 20 20 [facility] mg-hydrochl mg-hydrochl mg-hydroch ty orothiazide orothiazide lorothiazi [facility] 25 mg 25 mg de 25 mg l tablet Take tablet Take tablet Clinics 1 tablet by 1 tablet by Take 1 mouth once mouth once tablet by daily daily mouth once daily meclizine meclizine No meclizine [place] 25 mg 25 mg 25 mg [facility] tablet TAKE tablet TAKE tablet ty 1 TABLET BY 1 TABLET BY TAKE 1 Hospita MOUTH THREE MOUTH THREE TABLET BY l TIMES DAILY TIMES DAILY MOUTH Clinics NEEDED NEEDED THREE TIMES DAILY NEEDED metformin metformin No metformin [place] 1,000 mg 1,000 mg 1,000 mg Com sandro tablet TAKE tablet TAKE tablet ty 1 TABLET BY 1 TABLET BY TAKE 1 Hospita MOUTH TWICE MOUTH TWICE TABLET BY l DAILY DAILY MOUTH Clinics TWICE DAILY ondansetron ondansetron No ondansetro [place] 8 mg 8 mg n 8 mg [facility] disintegrat disintegrat disintegra ty ing tablet ing tablet ting [facility] DISSOLVE 1 DISSOLVE 1 tablet l TABLET IN TABLET IN DISSOLVE 1 Clinics MOUTH TWICE MOUTH TWICE TABLET IN DAILY DAILY MOUTH NEEDED NEEDED TWICE DAILY NEEDED oxybutynin oxybutynin No oxybutynin [place] chloride ER chloride ER chloride [facility] 5 mg 5 mg ER 5 mg ty tablet,exte tablet,exte tablet,ext Hospita nded nded ended l release 24 release 24 release 24 Clinics hr TAKE 1 hr TAKE 1 hr TAKE 1 TABLET BY TABLET BY TABLET BY MOUTH ONCE MOUTH ONCE MOUTH ONCE DAILY DAILY DAILY pantoprazol pantoprazol No pantoprazo [place] e 40 mg e 40 mg le 40 mg Commu ni tablet,ac tablet,ac tablet,del ty yed release yed release ayed H [facility]spita TAKE 1 TAKE 1 release l TABLET BY TABLET BY TAKE 1 Cli nics MOUTH ONCE MOUTH ONCE TABLET BY DAILY DAILY MOUTH ONCE DAILY venlafaxine venlafaxine No venlafaxin [place] ER 75 mg ER 75 mg e ER 75 mg C om[facility]i capsule,ext capsule,ext capsule,ex ty ended ended tended Hospita release 24 release 24 release 24 l hr TAKE 3 hr TAKE 3 hr TAKE 3 Clinics CAPSULES BY CAPSULES BY CAPSULES MOUTH AT MOUTH AT BY MOUTH BEDTIME BEDTIME AT BEDTIME Zithromax Zithromax No Zithromax [place] Z-Lamin 250 Z-Lamin 250 Z-Lamin 250 [facility]i mg tablet mg tablet mg tablet ty TAKE 2 TAKE 2 TAKE 2 Hospita TABLETS TABLETS TABLETS l (500 MG) BY (500 MG) BY (500 MG) Clinics ORAL ROUTE ORAL ROUTE BY ORAL ONCE DAILY ONCE DAILY ROUTE ONCE FOR 1 DAY FOR 1 DAY DAILY FOR THEN 1 THEN 1 1 DAY THEN TABLET (250 TABLET (250 1 TABLET MG) BY ORAL MG) BY ORAL (250 MG) ROUTE ONCE ROUTE ONCE BY ORAL DAILY FOR 4 DAILY FOR 4 ROUTE ONCE DAYS DAYS DAILY FOR 4 DAYS Vital Signs Vital Name Observation Time Observation Value Comments Source BP Diastolic 2022-06-20 00:00:00 70 mm[Hg] [facility] s Height 2022-06-20 00:00:00 61 [in_i] [facility] s BMI (Body Mass 2022-06-20 00:00:00 33.8 kg/m2 [facility] s BP Systolic 2022-06-20 00:00:00 120 mm[Hg] [facility] s Body Weight 2022-06-20 00:00:00 2864 [oz_av] [facility] s BP Diastolic 2022-03-16 00:00:00 80 mm[Hg] [facility] s Height 2022-03-16 00:00:00 61 [in_i] [facility] s BMI (Body Mass 2022-03-16 00:00:00 34 kg/m2 [facility]) [facility] s BP Systolic 2022-03-16 00:00:00 121 mm[Hg] [facility] s Body Weight 2022-03-16 00:00:00 2880 [oz_av] [facility] s BP Diastolic 2022-03-09 00:00:00 62 mm[Hg] [facility] s Height 2022-03-09 00:00:00 61 [in_i] [facility] s BMI (Body Mass 2022-03-09 00:00:00 33.3 kg/m2 [facility]) [facility] Clinic s BP Systolic 2022-03-09 00:00:00 140 mm[Hg] [facility] s Body Weight 2022-03-09 00:00:00 2816 [oz_av] [facility] s Height 2021-12-20 00:00:00 61 [in_i] [facility] s BMI (Body Mass 2021-12-20 00:00:00 31.2 kg/m2 [facility] Index) [facility] s Body Weight 2021-12-20 00:00:00 2640 [oz_av] [facility] s BP Diastolic 2021-09-16 00:00:00 72 mm[Hg] [facility] s Height 2021-09-16 00:00:00 61 [in_i] [facility] s BMI (Body Mass 2021-09-16 00:00:00 34.2 kg/m2 [facility]) [facility] s BP Systolic 2021-09-16 00:00:00 140 mm[Hg] [facility] s Body Weight 2021-09-16 00:00:00 2892.8 [oz_av] [facility] s BP Diastolic 2021-01-04 00:00:00 66 mm[Hg] [facility] s Height 2021-01-04 00:00:00 61 [in_i] [facility] s BMI (Body Mass 2021-01-04 00:00:00 34.4 kg/m2 [facility]) [facility] s BP Systolic 2021-01-04 00:00:00 140 mm[Hg] [facility] s Body Weight 2021-01-04 00:00:00 2912 [oz_av] [facility] s Height 2020-12-28 00:00:00 61 [in_i] [facility] s Body height 2021-12-31 14:45:00 152.4 cm [facility] Body weight 2021-12-31 14:45:00 85.276 kg [facility] BMI 2021-12-31 14:45:00 36.72 kg/m2 [facility] Oxygen saturation in 2021-11-18 18:00:00 97 /min [facility] Arterial blood by Pulse oximetry Systolic blood 2021-11-18 17:17:44 109 mm[Hg] [facility] pressure Diastolic blood 2021-11-18 17:17:44 49 mm[Hg] [facility] pressure Heart rate 2021-11-18 17:17:44 92 /min [facility] Body temperature 2021-11-18 17:17:44 36.28 M[facility] Respiratory rate 2021-11-18 17:17:44 17 /min [facility] Procedures Procedure Date / Time Performing Clinician Source Performed XR, hip, unilateral, 2 or 2022-06-20 00:00:00 Kelvin [facility] 3 view Hospital Clinics XR, foot, 3 or more view 2022-03-09 00:00:00 Marleny [facility] XR PELVIS 1 OR 2 2021-12-31 14:52:07 José Luis Dugan [facility] XR PELVIS 1 OR 2 2021-12-03 15:40:13 José Luis Dugan [facility] URINE CULTURE 2021-11-18 22:38:00 [facility] URINALYSIS SCREEN AND 2021-11-18 22:38:00 [facility] MICROSCOPY, WITH REFLEX TO CULTURE POC GLUCOSE 2021-11-18 17:18:00 José Luis Dugan spital POC GLUCOSE 2021-11-18 13:52:00 José Luis Dugan spital HC COMPLETE BLD COUNT 2021-11-18 11:20:00 [facility] W/AUTO DIFF COMPREHENSIVE METABOLIC 2021-11-18 11:20:00 [facility] PANEL ESTIMATED GFR 2021-11-18 11:20:00 [facility] POC GLUCOSE 2021-11-18 02:58:00 José Luis Dugan spital COVID-19 QUALITATIVE 2021-11-18 00:42:00 Cornelius Alberts [facility] RT-PCR POC GLUCOSE 2021-11-17 23:07:00 José Luis Dugan spital POC GLUCOSE 2021-11-17 17:41:00 José Luis Dugan spital POC GLUCOSE 2021-11-17 14:14:00 José Luis Dugan spital HEMOGLOBIN & HEMATOCRIT 2021-11-17 12:19:00 [facility] POC GLUCOSE 2021-11-17 03:14:00 José Luis Dugan spital POC GLUCOSE 2021-11-16 22:56:00 José Luis Dugan spital XR PELVIS 1 OR 2 VW 2021-11-16 22:42:05 SandraRebecca potterNani [facility] POC GLUCOSE 2021-11-16 22:22:00 [facility]SE 2021-11-16 21:37:00 [facility] XR PELVIS 1 OR 2 VW 2021-11-16 20:51:00 José Luis Dugan [facility] TRANSFUSE RED BLOOD CELLS 2021-11-16 19:56:00 Claus Costa [facility] AEROBIC CULTURE 2021-11-16 19:17:00 [facility] GRAM STAIN 2021-11-16 19:17:00 José Luis Dugan [facility] spital AEROBIC CULTURE 2021-11-16 19:10:00 DuganJosé Luis [facility] GRAM STAIN 2021-11-16 19:10:00 José Luis Dugan [facility] spital AEROBIC CULTURE 2021-11-16 19:09:00 DuganJosé Luis vela [facility] spital GRAM STAIN 2021-11-16 19:09:00 [facility] URINE CULTURE 2021-11-16 18:28:00 [facility] URINALYSIS SCREEN AND 2021-11-16 18:28:00 José Luis Dugan [facility] MICROSCOPY, WITH REFLEX TO CULTURE MD AN ELECTIVE 2021-11-16 18:17:00 [facility] ENDOT[facility]ACHE[facility] ANAEROBIC CULTURE 2021-11-16 18:17:00 José Luis Dugan [facility] ANAEROBIC CULTURE 2021-11-16 18:10:00 DuganJosé Luis vela [facility] ANAEROBIC CULTURE 2021-11-16 18:09:00 José Luis Dugan [facility] ARTHROPLASTY, HIP, TOTAL 2021-11-16 18:00:00 José Luis Dugan [facility] HC NERVE BLOCK QUADRATUS 2021-11-16 17:07:04 Elkin Montgomery [facility] LUMBORUM POC GLUCOSE 2021-11-16 13:55:00 Joés Luis Dugan spital TYPE AND SCREEN 2021-11-16 13:45:00 Jannie Darby H ospital HC COMPLETE BLD COUNT 2021-11-16 13:45:00 José Luis Dugan [facility] W/AUTO DIFF BASIC METABOLIC PANEL 2021-11-16 13:45:00 José Luis Dugan [facility] PARTIAL THROMBOPLASTIN 2021-11-16 13:45:00 [facility] TIME (PTT) PROTHROMBIN TIME WITH INR 2021-11-16 13:45:00 [facility] ESTIMATED GFR 2021-11-16 13:45:00 José Luis Dugan spital PREPARE RBC 2021-11-16 12:45:00 Jannie Darby ospital Total Replacement of Hip 2021-11-16 00:00:00 [facility] POC GLUCOSE 2021-11-05 17:28:00 [facility] 2021-11-05 14:01:00 [facility] BASIC METABOLIC PANEL 2021-11-05 11:33:00 Joaquin Arias [facility] MAGNESIUM LEVEL 2021-11-05 11:33:00 Juana [facility] PHOSPHORUS LEVEL 2021-11-05 11:33:00 Joaquin Arias [facility] CBC HEMOGRAM 2021-11-05 11:33:[address] [facility] ESTIMATED GFR 2021-11-05 11:33:00 [facility] 2021-11-05 11:09:00 José Luis Dugan spital POC GLUCOSE 2021-11-05 07:11:00 José Luis Dugan spital POC GLUCOSE 2021-11-05 02:56:00 José Luis Dugan spital POC GLUCOSE 2021-11-04 22:31:00 José Luis Dugan spital POC GLUCOSE 2021-11-04 18:02:00 José Luis Dugan spital POC GLUCOSE 2021-11-04 13:21:00 José Luis Dugan spital POC GLUCOSE 2021-11-04 12:23:00 José Luis Dugan spital BASIC METABOLIC PANEL 2021-11-04 12:18:00 [facility] 2021-11-04 12:18:00 Juana [facility] PHOSPHORUS LEVEL 2021-11-04 12:18:00 Juana [facility] HC COMPLETE BLD COUNT 2021-11-04 12:18:00 Cornelius Alberts [facility] W/AUTO DIFF ESTIMATED GFR 2021-11-04 12:18:00 Juana [facility] SMEAR REVIEW 2021-11-04 12:18:00 [facility] POC GLUCOSE 2021-11-04 02:56:00 José Luis Dugan spital POC GLUCOSE 2021-11-04 00:12:00 José Luis Dugan spital CT CHEST WO CONTRAST 2021-11-03 20:17:36 Maida Cunningham [facility] POC GLUCOSE 2021-11-03 17:16:00 [facility] LEVEL 2021-11-03 12:13:00 [facility] PHOSPHORUS LEVEL 2021-11-03 12:13:00 Juana [facility] COMPREHENSIVE METABOLIC 2021-11-03 12:13:00 Lucas Justice [facility] PANEL HC COMPLETE BLD COUNT 2021-11-03 12:13:00 [facility] W/AUTO DIFF ESTIMATED GFR 2021-11-03 12:13:00 [facility] POC GLUCOSE 2021-11-03 11:26:00 José Luis Dugan spital POC GLUCOSE 2021-11-03 07:13:00 José Luis Dugan spital POC GLUCOSE 2021-11-03 03:09:00 José Luis Dugan spital POC GLUCOSE 2021-11-03 02:23:00 DuganJosé Luis vela spital POC GLUCOSE 2021-11-02 22:48:00 Dugan, José Luis Vaz spital POC GLUCOSE 2021-11-02 18:34:00 Dugan, José Luis Vaz spital POC GLUCOSE 2021-11-02 16:00:00 DuganJosé Luis vela spital POC GLUCOSE 2021-11-02 14:10:00 Dugan, José Luis Vaz spital POC GLUCOSE 2021-11-02 10:40:00 Dugan, José Luis [facility] XR CHEST 1 VW PORTABLE 2021-11-02 10:36:38 Kaveh Yao [facility] COMPREHENSIVE METABOLIC 2021-11-02 09:20:00 José Luis Dugan [facility] PANEL MAGNESIUM LEVEL 2021-11-02 09:20:00 [facility] PHOSPHORUS LEVEL 2021-11-02 09:20:00 [facility]José [facility] ospital PROTHROMBIN TIME WITH INR 2021-11-02 09:20:00 DuganJosé Luis evla [facility] CBC WITH PLATELET AND 2021-11-02 09:20:00 DuganJosé Luis vela [facility] DIFFERENTIAL ESTIMATED GFR 2021-11-02 09:20:00 [facility] MANUAL DIFFERENTIAL 2021-11-02 09:20:00 José Luis Dugan [facility] POC GLUCOSE 2021-11-02 06:53:00 DuganJosé Luis vela spital POC GLUCOSE 2021-11-02 02:51:00 [facility]anJosé [facility] COVID-19 ANTI-SPIKE IGG 2021-11-02 00:26:00 Kaveh Yao [facility] ANTIBODY TITER HEMOGLOBIN A1C 2021-11-02 00:26:00 Kaveh Yao [facility] COVID-19 SEROLOGY PATIENT 2021-11-02 00:26:00 Najma Kaveh [facility] SURVEILLANCE POC GLUCOSE 2021-11-01 22:21:00 [facility] SURGICAL PATHOLOGY 2021-11-01 22:12:00 José Luis Dugan [facility] REQUEST XR PELVIS 1 OR 2 VW 2021-11-01 19:16:56 Rebecca Flores [facility] XR CHEST 1 VW PORTABLE 2021-11-01 19:12:08 Kaveh Yao [facility] XR ABDOMEN 1 VW 2021-11-01 19:11:12 Kaveh Yao [facility] CBC WITH PLATELET AND 2021-11-01 18:37:00 Jos éLuis Dugan [facility] DIFFERENTIAL COMPREHENSIVE METABOLIC 2021-11-01 18:37:00 José Luis Dugan [facility] PANEL INHIBIT PT, PTT MIX 2021-11-01 18:37:00 José Luis Dugan [facility] ESTIMATED GFR 2021-11-01 18:37:00 [facility] ARTERIAL BLOOD GAS 2021-11-01 18:37:00 Kaveh Yao [facility] MANUAL DIFFERENTIAL 2021-11-01 18:37:00 José Luis Dugan [facility] ECG 12-LEAD 2021-11-01 18:33:14 Kaveh Yao Nani [facility] POC GLUCOSE 2021-11-01 18:01:00 José Luis Dugan [facility] spital URINE CULTURE 2021-11-01 17:40:00 [facility] S[facility]EN AND 2021-11-01 17:40:00 José Luis Dugan [facility] MICROSCOPY, WITH REFLEX TO CULTURE ARTERIAL BLOOD GAS, 2021-11-01 16:55:00 DuganJosé Luis vela [facility] CORRECTED SODIUM LEVEL, SYRINGE 2021-11-01 16:55:00 DuganJosé Luis vela [facility] POTASSIUM, SYRINGE 2021-11-01 16:55:00 DuganJosé Luis vela Nani [facility] HEMOGLOBIN, SYRINGE 2021-11-01 16:55:00 DuganJosé Luis vela [facility] GLUCOSE LEVEL, SYRINGE 2021-11-01 16:55:00 DuganJosé Luis vela [facility] MAGNESIUM LEVEL 2021-11-01 16:55:00 José Luis Dugan spital MD AN ELECTIVE 2021-11-01 15:32:59 [facility] ARTERIAL BLOOD GAS, 2021-11-01 15:20:00 José Luis Dugan [facility] CORRECTED SODIUM LEVEL, SYRINGE 2021-11-01 15:20:00 José Luis Dugan [facility] POTASSIUM, SYRINGE 2021-11-01 15:20:00 DuganJosé Luis vela [facility] HEMOGLOBIN, SYRINGE 2021-11-01 15:20:00 José Luis Dugan [facility] IONIZED CALCIUM, ARTERIAL 2021-11-01 15:20:00 José Luis Dugan [facility] GLUCOSE LEVEL, SYRINGE 2021-11-01 15:20:00 José Luis Dugan [facility] MAGNESIUM LEVEL 2021-11-01 15:20:00 [facility] HEMOGRAM 2021-11-01 15:17:00 [facility] ARTHROPLASTY, HIP, TOTAL 2021-11-01 13:45:00 José Luis Dugan [facility] HC NERVE BLOCK QUADRATUS 2021-11-01 13:33:31 Tu, [facility] LUMBORUM ANESTHESIA SPINAL BLOCK 2021-11-01 13:18:00 , [facility] TYPE AND SCREEN 2021-11-01 13:15:[address] [facility] POC GLUCOSE 2021-11-01 13:15:00 [facility] COVID-19 QUALITATIVE 2021-10-27 17:50:00 WilnerJannie foreman [facility] RT-PCR TYPE AND SCREEN 2021-10-12 17:50:00 [facility] LOWER EXTREMITY 2021-08-11 18:42:41 José Luis Dugan [facility] EXTERNAL STUDY US, duplex, carotid 2021-01-04 00:00:[address], head, w/o contrast 2021-01-04 00:00:00 [facility] XR, hip, unilateral, 2 or 2021-01-04 00:00:00 [facility] view Hospital Clinics Operative Procedure on 2019-03-11 00:00:00 [facility] Clinic s Cataract Surgery [facility] Plan of Care Planned Activity Planned Date Details Comments Source Future Scheduled Test 2022-07-13 HEPATITIS B VACCINES [facility] 17:38:36 (1 of 3 - 3-dose series) [code = HEPATITIS B VACCINES (1 of 3 - 3-dose series)] Future Scheduled Test 2022-07-13 COVID-19 VACCINE (#1) [facility] 17:38:36 [code = COVID-19 VACCINE (#1)] Future Scheduled Test 2022-07-13 DIABETES: RETINAL EYE [facility] 17:38:36 EXAM [code = DIABETES: RETINAL EYE EXAM] Future Scheduled Test 2022-07-13 DIABETIC FOOT EXAM [facility] 17:38:36 [code = DIABETIC FOOT EXAM] Future Scheduled Test 2022-07-13 URINE MICROALBUMIN [facility] 17:38:36 [code = URINE MICROALBUMIN] Future Scheduled Test 2022-07-13 Hepatitis C screening [facility] 17:38:36 (procedure) [code = 209821761] Future Scheduled Test 2022-07-13 BREAST CANCER [facility] 17:38:36 SCREENING [code = BREAST CANCER SCREENING] Future Scheduled Test 2022-07-13 COLONOSCOPY SCREENING [facility] 17:38:36 [code = COLONOSCOPY SCREENING] Future Scheduled Test 2022-07-13 SHINGLES VACCINES (1 [facility] 17:38:36 of 2) [code = SHINGLES VACCINES (1 of 2)] Future Scheduled Test 2022-07-13 65+ PNEUMOCOCCAL [facility] 17:38:36 VACCINE (2 - PPSV23 if available, else PCV20) [code = 65+ PNEUMOCOCCAL VACCINE (2 - PPSV23 if available, else PCV20)] Future Scheduled Test 2022-07-13 INFLUENZA VACCINE [facility] 17:38:36 [code = INFLUENZA VACCINE] Diagnostic Test 2022-06-20 HbA1c (hemoglobin [facility] Pending 00:00:00 A1c), blood [code = Hospital Clinics HbA1c (hemoglobin A1c), blood] Future Appointment 2022-09-20 [facility]yanne [facility] [address] [facility] B; [facility] [address], [place] [address] Encounters Start End Encounter Admission Attending Care Care Encounter Source Date/Time Date/Time Type Type Clinicians Facility Department ID 2022-06-21 2022-06-21 Travel 1.2.840.1 [id number] [facility]i 00:00:00 00:00:[address] 3.430.2.7 0.2.7.3.698 Ho spita .3.643678 084.8 l .8 2022-06-20 2022-06-20 Outpatient BRYAN_Fouzia [facility] [id number] [place] 00:00:00 00:00:00 010 Commun i ty [facility] 2022-06-20 2022-06-20 Cheyanne Zavaleta [facility] [place] [facility] [place] 00:00:00 00:00:00 Shilo Shah MD: [address] [facility] [address] [address], HOSPITAL [facility] [place], [place] [facility], [address] BRYAN , Ph. 2022-03-24 2022-03-24 Travel 1.2.840.1 1.2.805.894 [id number] Methodi 00:00:00 00:00:[address] 3.430.2.7 0.2.7.3.698 Ho spita .3.125598 084.8 l .8 2022-03-16 2022-03-16 Outpatient BRYAN_Fouzia [facility] [id number] [place] 01:27:00 01:27:00 706 Commun i ty [facility] 2022-03-16 2022-03-16 Cheyanne Zavaleta [facility] [place] 706 [place] 00:00:00 00:00:00 Shilo Shah MD: [address] [facility] Hospit a [address], COMMUNITY l [address], HOSPITAL [facility], [address] BRYAN , Ph. 2022-03-16 2022-03-16 Outpatient Cheyanne Shah [facility] [id number] 00:00:00 00:00:00 Meghann [id number] 2022-03-09 2022-03-09 Outpatient BRYAN_Fouzia [facility] [id number] [place] 04:08:00 04:08:00 629 [facility] i ty Hospita l [facility] 2022-03-09 2022-03-09 Cheyanne Zavaleta [facility] [place] 00:00:00 00:00:00 Shilo Shah [facility] MD: [address] [facility] Hospit a [address], [facility] l [address], [facility], [address] BRYAN , Ph. 2022-03-09 2022-03-09 Outpatient Cheyanne Shah [facility] [id number] 00:00:00 00:00:00 Meghann [id number] 2021-12-31 2021-12-31 Office José Luis Dugan 1.2.840.1 [id number] Methodi 10:00:00 10:09:49 [address] A. 38226.1.[address] 3.430.2.7 Hospit a .3.115971 l .8 2021-12-31 2021-12-31 Travel 1.2.840.1 1.2.937.498 [id number] Methodi 00:00:00 00:00:[address] 3.430.2.7 0.2.7.3.698 Ho spita .3.856556 084.8 l .8 2021-12-31 2021-12-31 Outpatient JOSÉ LUIS DUGAN [facility] [id number] [place] 00:00:00 00:00:[address] 2021-12-31 2021-12-31 Outpatient DUGAN, JOSÉ LUIS [facility] [id number] [place] 00:00:00 00:00:[address] 2021-12-20 2021-12-20 Outpatient BRYAN_Fouzia [facility] [id number] [place] 04:35:00 04:35:00 411 Commun i ty Hospita l [facility] 2021-12-20 2021-12-20 Cheyanne Zavaleta [facility] [place] [id number] 411 [place] 00:00:00 00:00:00 Shilo Shah [facility] uni MD: [address] [facility] Hospit a [address], [facility] l [address], HOSPITAL [facility], [facility], [address] BRYAN , Ph. 2021-12-20 2021-12-20 Outpatient Cheyanne Shah [facility] [id number] 00:00:00 00:00:00 Meghann [id number] 2021-12-03 2021-12-03 Office José Luis Dugan 1.2.840.1 [id number] Methodi 10:00:00 10:48:00 [place] A. 91982.1.[address] 3.430.2.7 Hospit a .3.337586 l .8 2021-12-03 2021-12-03 Travel 1.2.840.1 1.2.755.327 [id number] Methodi 00:00:00 00:00:[address] 3.430.2.7 0.2.7.3.698 Ho spita .3.682701 084.8 l .8 2021-12-03 2021-12-03 Outpatient DUGANJOSÉ LUIS [facility] [id number] [place] 00:00:00 00:00:[address] 2021-12-03 2021-12-03 Outpatient DUGANJOSÉ LUIS [facility] [id number] [place] 00:00:00 00:00:[address] 2021-11-29 2021-11-29 Travel 1.2.840.1 1.2.730.742 [id number] Methodi 00:00:00 00:00:[address] 3.430.2.7 0.2.7.3.698 Ho spita .3.563021 084.8 l .8 2021-11-16 2021-11-18 Hospital DuganJosé Luis 1.2.840.1 [id number] Methodi 06:32:00 17:49:00 Encounter A. 42631.1.[address] 3.430.2.7 Hospit a .3.633365 l .8 2021-11-16 2021-11-18 Inpatient KAILEEJOSÉ LUIS [facility] 021 [id number] [place] 00:00:00 00:00:[address] 2021-11-16 2021-11-16 Anesthesia Elkin Montgomery 1.2.840.1 [id number] Methodi 12:00:00 15:40:00 Event Jannie Darby 33384.1.[address] 3.430.2.7 Hospit a .3.274776 l .8 2021-11-16 2021-11-16 Surgery KaileeJosé Luis 1.2.840.1 [id number] 21 [id number] Methodi 11:25:00 14:25:[address] 3.430.2.7 Hospit a .3.122586 l .8 2021-11-10 2021-11-10 Orders Parmjit 1.2.840.1 [id number] [id number] Methodi 00:00:00 00:00:00 Only Zoë 57785.1.[address] 3.430.2.7 Hospit a .3.544550 l .8 2021-11-10 2021-11-10 Transcribe DuganJosé Luis 1.2.840.1 [id number] Methodi 00:00:00 00:00:00 Orders A. 12109.1.[address] 3.430.2.7 Hospit a .3.433945 l .8 2021-11-01 2021-11-05 Hospital José Luis Dugan 1.2.840.1 [id number] 2 [id number] Methodi 05:47:00 14:32:00 Encounter A. 97222.1.[address] 3.430.2.7 Hospit a .3.135907 l .8 2021-11-01 2021-11-05 Inpatient JOSÉ LUIS DUGAN [facility] 014 [id number] [place] 00:00:00 00:00:[address] 2021-11-04 2021-11-04 Orders Sandra, 1.2.840.1 [id number] Methodi 00:00:00 00:00:00 Only Rebecca PainterNani 33505.1.[address] 3.430.2.7 Hospit a .3.848706 l .8 2021-11-01 2021-11-01 Anesthesia Aurora Andersen 1.2.840.1 [id number] Methodi 07:45:00 12:08:00 Event Jannie Darby 17857.1.[address] 3.430.2.7 Hospit a .3.089820 l .8 2021-11-01 2021-11-01 Surgery José Luis Dugan 1.2.840.1 [id number] 21 [id number] Methodi 07:45:00 10:40:[address] 3.430.2.7 Hospit a .3.794818 l .8 2021-10-27 2021-10-27 Office Sandra 1.2.840.1 [id number] Methodi 10:30:00 11:33:42 Visit Rebecca InocencioNani 14450.1.[address] 3.430.2.7 Hospit a .3.231569 l .8 2021-10-27 2021-10-27 Outpatient SANDRA [facility] [id number] [place] 00:00:00 00:00:[address] REBECCA [address] 2021-10-27 2021-10-27 Outpatient JOSÉ LUIS DUGAN [facility] [id number] [place] 00:00:00 00:00:[address] 2021-10-27 2021-10-27 Orders José Luis Dugan 1.2.840.1 [id number] Methodi 00:00:00 00:00:00 Only A. 18485.1.[address] 3.430.2.7 Hospit a .3.231120 l .8 2021-10-27 2021-10-27 Travel 1.2.840.1 1.2.279.661 [id number] Methodi 00:00:00 00:00:[address] 3.430.2.7 0.2.7.3.698 Ho spita .3.519706 084.8 l .8 2021-10-12 2021-10-12 Pre-Admiss José Luis Dugan 1.2.840.1 [id number] Methodi 11:00:00 12:00:00 ion A. 96554.1.[address] Testing 3.430.2.7 Hospit a .3.942356 l .8 2021-10-12 2021-10-12 Outpatient JOSÉ LUIS DUGAN [facility] [id number] [place] 00:00:00 00:00:[address] 2021-10-12 2021-10-12 Travel 1.2.840.1 1.2.456.422 [id number] [id number] Methodi 00:00:00 00:00:[address] 3.430.2.7 0.2.7.3.698 Ho spita .3.801105 084.8 l .8 2021-10-07 2021-10-07 Orders Parmjit, 1.2.840.1 [id number] Methodi 00:00:00 00:00:00 Only Zoë 21275.1.[address] 3.430.2.7 Hospit a .3.992952 l .8 2021-09-16 2021-09-16 Outpatient KEFFER_A [facility] [id number] [place] 10:55:00 10:55:00 106 Commun i ty Hospita l Clinics 2021-09-16 2021-09-16 Cheyanne Wilkinsonn [facility] [place] 106 [place] 00:00:00 00:00:00 Shilo Shah MD: [address] [facility] a [address], [facility] l [address], HOSPITAL Clinic [place], [place] CL[place]IC, [address] BRYAN , Ph. 2021-09-16 2021-09-16 Outpatient Bryan Cheyanne [facility] [id number] 00:00:00 00:00:00 Meghann [id number] 2021-09-08 2021-09-08 Documentat Provider, 1.2.840.1 [id number] Methodi 00:00:00 00:00:00 ion Unknown 36059.1.[address] 3.430.2.7 Hospit a .3.475697 l .8 2021-09-07 2021-09-07 Transcribe José Luis Dugan 1.2.840.1 [id number] Methodi 00:00:00 00:00:00 Orders A. 40180.1.[address] 3.430.2.7 Hospit a .3.795954 l .8 2021-09-07 2021-09-07 Travel 1.2.840.1 1.2.822.166 [id number] Methodi 00:00:00 00:00:[address] 3.430.2.7 0.2.7.3.698 Ho spita .3.626361 084.8 l .8 2021-08-23 2021-08-23 Telephone Sudeep 1.2.840.1 [id number] Methodi 00:00:00 00:00:[address] 3.430.2.7 Hospit a .3.296853 l .8 2021-08-23 2021-08-23 Orders José Luis Dugan 1.2.840.1 [id number] 21 [id number] Methodi 00:00:00 00:00:00 Only Fouzia. 44115.1.[address] 3.430.2.7 Hospit a .3.998938 l .8 2021-08-18 2021-08-18 Hospital José Luis Dugan 1.2.840.1 [id number] 2 [id number] Methodi 15:32:27 23:59:00 Encounter A. 86199.1.[address] 3.430.2.7 Hospit a .3.226138 l .8 2021-08-18 2021-08-18 Office José Luis Dugan 1.2.840.1 [id number] 21 [id number] [facility]i 15:40:00 15:40:00 Visit [place]. [address].1.[address] 3.430.2.7 Hospit a .3.009190 l .8 2021-08-18 2021-08-18 Outpatient JOSÉ LUIS DUGAN [facility] [id number] [place] 00:00:00 00:00:[address] 2021-08-18 2021-08-18 Outpatient JOSÉ LUSI DUGAN [facility] [id number] [place] 00:00:00 00:00:[address] 2021-08-18 2021-08-18 Travel 1.2.840.1 1.2.196.672 8682 [id number] [facility] 00:00:00 00:00:[address] 3.430.2.7 0.2.7.3.698 Ho spita .3.946871 084.8 l .8 2021-08-11 2021-08-11 Travel 1.2.840.1 1.2.262.587 5467 175176 [facility] 00:00:00 00:00:[address] 3.430.2.7 0.2.7.3.698 Ho spita .3.434797 084.8 l .8 2021-08-10 2021-08-10 Orders Dugan, José Luis 1.2.840.1 [id number] 21 [id number] Methodi 00:00:00 00:00:00 Only A. 72697.1.[address] 3.430.2.7 Hospit a .3.585483 l .8 2021-07-29 2021-07-29 Office Dugan, José Luis 1.2.840.1 [id number] 21 [id number] [facility] 14:00:00 14:38:43 [place].1.[address] 3.430.2.7 Hospit a .3.645641 l .8 2021-07-29 2021-07-29 Outpatient DUGAN, JOSÉ LUIS [facility] [id number] [place] 00:00:00 00:00:[address] 2021-07-29 2021-07-29 Travel 1.2.840.1 1.2.279.411 2474 [id number] [facility] 00:00:00 00:00:[address] 3.430.2.7 0.2.7.3.698 Ho spita .3.997265 084.8 l .8 2021-07-23 2021-07-23 Travel 1.2.840.1 1.2.379.324 5502 [id number] [facility] 00:00:00 00:00:[address] 3.430.2.7 0.2.7.3.698 Ho spita .3.130993 084.8 l .8 2021-07-12 2021-07-12 Outpatient DUGAN, JOSÉ LUIS [facility] [id number] [place] 00:00:00 00:00:[address] 2021-07-12 2021-07-12 Outpatient DUGAN, JOSÉ LUIS [facility] [id number] [place] 00:00:00 00:00:[address] 2021-05-21 2021-05-21 Outpatient CATES, ADRIEL [facility] [id number] [place] 00:00:00 00:00:[address] 2021-04-29 2021-04-29 Outpatient DUGAN, JOSÉ LUIS [facility] [id number] [place] 00:00:00 00:00:[address] 2021-04-29 2021-04-29 Outpatient DUGAN, JOSÉ LUIS [facility] [id number] [place] 00:00:00 00:00:00 [address] 2021-04-29 2021-04-29 Outpatient DUGAN, JOSÉ LUIS [facility] [id number] [place] 00:00:00 00:00:[address] 2021-04-28 2021-04-28 Outpatient DUGAN, JOSÉ LUIS [facility] [id number] [place] 00:00:00 00:00:[address] 2021-04-28 2021-04-28 Outpatient DUGAN, JOSÉ LUIS [facility] [id number] [place] 00:00:00 00:00:[address] 2021-01-04 2021-01-04 Outpatient KEFFER_A [facility] [id number] [place] 05:46:00 05:46:00 [facility] 2021-01-04 2021-01-04 Outpatient Cheyanne Shah [facility] [id number] 00:00:00 00:00:00 Meghann [id number] 2021-01-04 2021-01-04 Cheyanne Zavaleta [facility] - [place] 426 [place] 00:00:00 00:00:00 Shilo Shah MD: [address] [facility] Hospit a [address], [facility] l [address], [facility], [address] BRYAN , Ph. 2020-12-28 2020-12-28 Outpatient MARINFFER_Fouzia [facility] [id number] [place] 02:01:00 02:01:00 [facility] 2020-12-28 2020-12-28 Outpatient Cheyanne Shah [facility] [id number] 00:00:00 00:00:00 Meghann [id number] 2020-12-28 2020-12-28 Cheyanne Zavaleta [facility] [place] - [place] 419 [place] 00:00:00 00:00:00 Shilo Shah MD: [address] [facility] [address], COMMUNITY l [address], H[facility] Clinic s [place], [place] [facility], [address] BRYAN , Ph. 2020-12-21 2020-12-21 Outpatient [facility] [id number] [place] 12:01:00 12:01:00 [facility] 2020-07-29 2020-07-29 Outpatient keffer_a [facility] 2019 [place] 02:19:00 02:19:00 [id number] 2018-08-08 2018-08-08 Outpatient ffer_a [facility] 2019 [place] 04:05:00 04:05:00 [facility] Results Test Description Test Time Test Comments Results Result Comments Source Anaerobic culture 2021-11-21 13:47:00 Test Item Value Reference Range Interpretation Comme nts Anaerobic culture No anaerobic organisms Specimen InformationSpecimen isolate (test code = isolated. Source: TissueSpecimen Site: Hip: 86741-2) RIGHT HIP DEEP CULTURE TANIA (test code = TANIA) [id number] 03:40:00 Test Item Value Reference Range Interpretation Comments Aerobic culture No growth Specimen isolate (test after 3 days. InformationSp ecimen code = 53487-0) Source: Tiss ueSpecimen Site: Hip: RIGH T HIP DEEP CULTURE TANIA (test code NO TISSUE = TANIA) [facility] [id number] 23:41:00 Test Item Value Reference Range Interpretation Comments Urine culture (test SEE COMMENT Bacteriu ana luisa screen code = 7540148) negative. [facility] [Presence] in Respiratory specimen by YENI with probe [id number] 02:11:13 Test Item Value Reference Range Interpretation Comments SARS-CoV-2 (COVID-19) RNA Not detected [Presence] in Respiratory specimen by YENI with probe detection (test code = 06170-8) Whether patient is employed in a Unknown healthcare setting (test code = 47051-4) Whether the patient has symptoms Unknown related to condition of interest (test code = 44584-2) Whether the patient was Unknown hospitalized for condition of interest (test code = 75086-9) Whether the patient was admitted Unknown to intensive care unit (ICU) for condition of interest (test code = 08484-0) Whether patient resides in a Unknown congregate care setting (test code = 86906-8) status (test code = Unknown 31413-3) Date and time of symptom onset Unknown (test code = 35510-7) [facility] [id number] 03:57:00 Test Item Value Reference Range Interpretation Comments Gram stain No WBC's or Specimen isolate (test organisms seen. Information Specimen code = 1469) Source: TissueS pecimen Site: Hip: RIGH T HIP DEEP CULTURE TANIA (test code NO TISSUE SEEN = TANIA) [facility] [id number] 20:26:00 Test Item Value Reference Range Interpretation Comments Product name (test code Red Blood Cells -1, = 25) Leukored Unit number (test code = [id number]) Product code (test code Z1497W18 = 3092) Dispense status (test Transfused code = 24) Blood expiration date (test code = 302) Blood type code (test code = 308) Blood type (test code = O POSITIVE 1314) Compatibility (test code Compatible = 6400) TANIA (test code = TANIA) 11/16/21 13:[address]Rachel Armstrong in OR order & signature onpickup requisitionreceived/s an11/16/21 13:[address]Rachel Armstrong in OR order & signature onpickup requisitionreceived/s [facility] [id number] 16:13:45 Test Item Value Reference Range Interpretation Comments Case number (test code = [id number]) Surgical pathology See link below for report (test code = PDF Lab Report [id number]) Result status (test code This is Final Report = [id number]) for [id number] [facility] 12 [id number] 22:59:34 Test Item Value Reference Range Interpretation Comments Ventricular rate (test code = 253) Atrial rate (test code = 255) MD interval (test code = 266) QRSD interval (test code = 260) QT interval (test code = 264) QTC interval (test code = 265) P axis 1 (test code = 267) QRS axis 1 (test code = 268) T wave axis (test code = 270) EKG impression (test Normal sinus code = 273) rhythm-Low voltage QRS-Left posterior fascicular block-Abnormal QRS-T angle, consider primary T wave abnormality-Abnormal ECG-No previous ECGs available-Electronical ly Signed By Harman Gonzalez MD (2004) on 11/01/2021 4:59:32 PM [facility] Tyler[facility]terial blood gas, [id number] 17:23:00 Test Item Value Reference Range Interpretation Comments pH, arterial (test code 7.35-7.45 L = 2744-1) pCO2, arterial (test See_Comment H [Autom ated message] code = 2019-) The system [employer] generated this result transmitted ref erence range: 35 - 45 mmHg. The reference r leo was not used to interpret this result as normal/abnor mal. pO2, arterial (test code See_Comment H [A utomated message] = 2703-7) The system [employer] generated this result transmitted ref erence range: 80 - 90 mmHg. The reference r leo was not used to interpret this result as normal/abnor mal. Temperature, Celsius Degrees C (test code = 8310-5) O2 saturation, arterial 99 % 95-100 (test code = 2708-6) pH, arterial corrected (test code = 22653-8) pCO2, arterial corrected mmHg (test code = 10884-3) pO2, arterial corrected mmHg (test code = 75791-7) Base excess, arterial See_Comment [Auto mated message] (test code = 1925-7) The [facility] tem which generated this result transmitted ref erence range: -2 - 2 m Eq/L. The reference r leo was not used to interpret this result as normal/abnor mal. Lab Interpretation (test Abnormal code = 00724-8) [facility] level, [id number] 17:23:00 Test Item Value Reference Range Interpretation Comments Glucose, syringe (test code = 220 mg/dL 65-99 H 2345-7) Lab Interpretation (test code = Abnormal 29295-5) [facility]em[facility], [id number] 17:23:00 Test Item Value Reference Range Interpretation Comments Hemoglobin, syringe (test code = 8.6 g/dL 12.0-16.0 L 718-7) Lab Interpretation (test code = Abnormal 38306-4) [facility] TylerPotassium, [id number] 17:23:00 Test Item Value Reference Range Interpretation Comments Potassium, syringe See_Comment [Automat ed message] The (test code = 2007) system wh ich generated this result tra nsmitted reference range : 3.5 - 5.0 mEq/L. The refe rence range was not used to interpret this result as normal/abnormal . [facility], [id number] 17:23:00 Test Item Value Reference Range Interpretation Comments Sodium, syringe (test See_Comment [Auto mated message] The code = 2947-0) system which generated this result tra nsmitted reference range : 125 - 148 mEq/L. The refe rence range was not used to interpret this result as normal/abnormal . [facility] TylerIonized calcium, [id number] 15:35:00 Test Item Value Reference Range Interpretation Comments Ionized calcium, arterial (test 1.13 mmol/L 1.11-1.32 code = 57553-5) [facility] RNA [Presence] in Respiratory specimen by YENI with probe [id number] 21:49:41 Test Item Value Reference Range Interpretation Comments SARS-CoV-2 (COVID-19) RNA Not detected Not-Detected [Presence] in Respiratory specimen by YENI with probe detection (test code = 48746-4) Whether patient is employed in a healthcare setting (test code = 74468-5) Whether the patient has symptoms related to condition of interest (test code = 66580-0) Patient was hospitalized because of this condition (test code = 88068-2) Whether the patient was admitted to intensive care unit (ICU) for condition of interest (test code = 98003-0) Whether patient resides in a congregate care setting (test code = 07318-6) [facility]
[2022-07-19] MEDS ORDERED: GABAPENTIN 300 MG CAP ONE (12:06)
--- NOTE | 2022-07-19 13:35 | RAD REPORT ---
EXAM DESCRIPTION: RAD - Hip Right 2 View - 07/19/2022 1:25 pm CLINICAL HISTORY: PAIN COMPARISON: Hip Right 2 View dated 05/10/2022 FINDINGS: Right total hip arthroplasty is noted. Moderate bony hypertrophy is seen surrounding the h ardware. This appears unchanged compared to prior study. No evidence of hardware loosening or infecti on no acute fracture or dislocation evident.
--- NOTE | 2022-07-19 13:49 | ER ---
Nurse's Notes [facility] Name: Kathi Rodríguez Age: 76 yrs Sex: Female : 1945 Arrival Date: 07/19/2022 Time: 11:22 Bed 24 Private MD: DYLON DUBON Diagnosis: Sciatica, right side Presentation: 07/19 11:56 Chief complaint: Patient states: has fallen 6 times since February, and has had 2 surgeries jh5 on the right hip which is causing her very bad pain 2 weeks where she cant put pressure on the right leg now. Coronavirus screen: Vaccine status: Patient reports receiving the 2nd dose of the covid vaccine. Client denies travel out of the [place] in the last 14 days. Ebola Screen: Patient negative for fever greater than or equal to 101.5 degrees Fahrenheit, and additional compatible Ebola Virus Disease symptoms Patient denies exposure to infectious person. Patient denies travel to an Ebola-affected area in the 21 days before illness onset. Initial Sepsis Screen: Does the patient meet any 2 criteria? No. Patient's initial sepsis screen is negative. Does the patient have a suspected source of infection? No. Patient's initial sepsis screen is negative. Risk Assessment: Do you want to hurt yourself or someone else? Patient reports no desire to harm self or others. 11:56 Method Of Arrival: Wheelchair 5 11:56 Acuity: ROSHAN 3 jh5 12:08 Onset of symptoms is unknown. tp1 Triage Assessment: 11:57 General: Appears uncomfortable, obese, well groomed, Behavior is calm, cooperative, jh5 appropriate for age. Pain: Complains of pain in right leg. Historical: - Allergies: 11:57 Levaquin; jh5 - PMHx: 11:57 Hypercholesterolemia; Hypertensive disorder; thyroid disease; jh5 - Immunization history:: Adult Immunizations up to date. - Social history:: Smoking status: Patient denies any tobacco usage or history of. Screenin:02 Abuse screen: Denies threats or abuse. Denies injuries from another. Nutritional tp1 screening: No deficits noted. Tuberculosis screening: No symptoms or risk factors identified. Fall Risk Fall in past 12 months (25 points). No secondary diagnosis (0 pts). No IV (0 pts). Ambulatory Aid- Crutches/Cane/Walker (15 pts). Gait- Impaired (20 pts.). Mental Status- Oriented to own ability (0 pts). Total Stephen Fall Scale indicates High Risk Score (45 or more points). Fall prevention measures have been instituted. Side Rails Up X 2 Placed Close to Nursing Station Frequent Obs/Assessments Occuring Family Present and informed to notify staff if the need to leave the bedside As available patient and family educated on Fall Prevention Program and Strategies. Assessment: 12:01 General: Appears in no apparent distress. uncomfortable, Behavior is calm, cooperative. tp1 Pain: Complains of pain in right gluteus sky Pain radiates to right leg Pain currently is 10 out of 10 on a pain scale. Quality of pain is described as sharp, Pain began 2 weeks ago. Pain: Aggravated by weight bearing. Neuro: Level of Consciousness is awake, alert, obeys commands, Oriented to person, place, time, situation. Cardiovascular: Patient's skin is warm and dry. Respiratory: Airway is patent Respiratory effort is even, unlabored. GI: No signs and/or symptoms were reported involving the gastrointestinal system. : No signs and/or symptoms were reported regarding the genitourinary system. EENT: No signs and/or symptoms were reported regarding the EENT system. Derm: Skin is pink, warm \T\ dry. Musculoskeletal: Circulation, motion, and sensation intact. 12:59 Reassessment: Patient appears in no apparent distress at this time. No changes from tp1 previously documented assessment. Patient and/or family updated on plan of care and expected duration. Pain level reassessed. Patient is alert, oriented x 3, equal unlabored respirations, skin warm/dry/pink. rates pain 2/10. Vital Signs: 11:56 Resp 16; Temp 98.4; Weight 77.11 kg; Height 5 ft. 4 in. (162.56 cm); Pain 8/10; jh5 12:02 BP 139 / 57; Pulse 71; Resp 16; Pulse Ox 94% on R/A; tp1 12:59 BP 139 / 63; Pulse 69; Resp 16; Pulse Ox 98% on R/A; tp1 13:47 BP 138 / 57; Pulse 70; Resp 16; Pulse Ox 94% on R/A; tp1 11:56 Body Mass Index 29.18 (77.11 kg, 162.56 cm) [facility] ED Course: 11:22 Patient arrived in ED. am2 11:22 DYLON DUBON is Private Physician. am2 11:41 Cheryl Ellis FNP-C is [facility] kb 11:41 Cheryl Ellis FNP-C is [facility] kb 11:42 Danis Frost MD is Attending Physician. kb 11:57 Triage completed. [facility] 11:57 Arm band placed on right wrist. [facility] 12:01 Shital Grey, RN is Primary Nurse. tp1 12:08 Patient has correct armband on for positive identification. Bed in low position. Call tp1 light in reach. Side rails up X2. Adult w/ patient. Pulse ox on. NIBP on. Warm blanket given. 12:08 No provider procedures requiring assistance completed. tp1 13:27 Hip Right 2 View XRAY In Process Unspecified. EDMS 14:22 Patient did not have IV access during this emergency room visit. tp1 Administered Medications: 12:08 Drug: Gabapentin 300 mg Route: PO; tp1 12:59 Follow up: Response: Pain is decreased tp1 Medication: 12:08 VIS not applicable for this client. tp1 Outcome: 13:49 Discharge ordered by . kb 14:22 Discharged to home via wheelchair, with family. tp1 14:22 Condition: good 14:22 Discharge instructions given to patient, Instructed on discharge instructions, follow up and referral plans. medication usage, Demonstrated understanding of instructions, follow-up care, medications, Prescriptions given X 1. 14:22 Patient left the ED. tp1 Signatures: Dispatcher [employer] EDGA Cheryl Ellis FNP-C FNP-Zenaida Sin am2 Cinda Childs, RN RN [facility] Shital Grey, RN RN tp1
--- NOTE | 2022-07-19 13:49 | EDPHYS ---
Physician Documentation [facility] Name: Kathi Rodríguez Age: 76 yrs Sex: Female : 1945 Arrival Date: 07/19/2022 Time: 11:22 Bed 24 Private MD: DYLON DUBON ED Physician Danis Frost HPI: 07/19 13:47 This 76 yrs old Female presents to ER via Wheelchair with complaints of Hip Pain. kb 13:47 The patient or guardian reports pain. that occurred at home, sustained from unknown kb reason, There is no obvious deformity, The patient is able to ambulate with assistance. The patient is able to bear partial body weight. The patient's discomfort radiates to the right quadriceps. The complaints affect the right gluteus sky. Onset: The symptoms/episode began/occurred 2 week(s) ago. Modifying factors: The symptoms are alleviated by nothing, the symptoms are aggravated by weight bearing. Associated signs and symptoms: Loss of consciousness: the patient experienced no loss of consciousness, Pertinent positives: None. Severity of symptoms: At their worst the symptoms were moderate, in the emergency department the symptoms are unchanged. The patient has not experienced similar symptoms in the past. The patient has not recently seen a physician. Pt reports pain in right buttock that radiates down right leg for 2 weeks, progressively getting worse. Denies injury, trauma, fall. States she is concerned about hardware from hip replacement in October. . Historical: - Allergies: 11:57 Levaquin; jh5 - PMHx: 11:57 Hypercholesterolemia; Hypertensive disorder; thyroid disease; 5 - Immunization history:: Adult Immunizations up to date. - Social history:: Smoking status: Patient denies any tobacco usage or history of. ROS: 13:45 Constitutional: Negative for fever, chills, and weight loss. kb 13:45 MS/extremity: Positive for pain, of the right hip and right gluteus sky. 13:45 All other systems are negative. Exam: 13:45 Constitutional: This is a well developed, well nourished patient who is awake, alert, kb and in no acute distress. Head/Face: Normocephalic, atraumatic. ENT: Moist Mucous membranes Respiratory: Respirations even and unlabored. No increased work of breathing. Talking in full sentences Abdomen/GI: Soft, non-tender. No distention Skin: Warm, dry with normal turgor. Normal color. Neuro: Awake and alert, GCS 15, oriented to person, place, time, and situation. Moves all extremities. Normal gait. Psych: Awake, alert, with orientation to person, place and time. Behavior, mood, and affect are within normal limits. 13:45 Musculoskeletal/extremity: Extremities: grossly normal except: noted in the right gluteus sky: pain, ROM: intact in all extremities, Pulses: are normal with no appreciated deficits, Sensation intact. Weight bearing: can bear weight with assistance only. Vital Signs: 11:56 Resp 16; Temp 98.4; Weight 77.11 kg; Height 5 ft. 4 in. (162.56 cm); Pain 8/10; jh5 12:02 BP 139 / 57; Pulse 71; Resp 16; Pulse Ox 94% on R/A; tp1 12:59 BP 139 / 63; Pulse 69; Resp 16; Pulse Ox 98% on R/A; tp1 13:47 BP 138 / 57; Pulse 70; Resp 16; Pulse Ox 94% on R/A; tp1 11:56 Body Mass Index 29.18 (77.11 kg, 162.56 cm) jh5 MDM: 11:50 Patient medically screened. kb 13:44 Data reviewed: vital signs, nurses notes. Data interpreted: Pulse oximetry: on room air kb is 98 %. Interpretation: normal. Counseling: I had a detailed discussion with the patient and/or guardian regarding: the historical points, exam findings, and any diagnostic results supporting the discharge/admit diagnosis, radiology results, the need for outpatient follow up, a family practitioner, a orthopedic surgeon, to return to the emergency department if symptoms worsen or persist or if there are any questions or concerns that arise at home. 11 11:59 Order name: Hip Right 2 View XRAY; Complete Time: 13:40 kb Administered Medications: 12:08 Drug: Gabapentin 300 mg Route: PO; tp1 12:59 Follow up: Response: Pain is decreased tp1 Disposition: 17:31 Co-signature as Attending Physician, Danis Frost MD. rn Disposition Summary: 07/19/22 13:49 Discharge Ordered Location: Home kb Condition: Stable kb Diagnosis - Sciatica, right side kb Followup: kb - With: Emergency Department - When: As needed - Reason: Worsening of condition Followup: kb - With: Private Physician - When: 2 - 3 days - Reason: Recheck today's complaints, Continuance of care, Re-evaluation by your physician Discharge Instructions: - Discharge Summary Sheet kb - Sciatica, [id number]-[id number] kb Forms: - Medication Reconciliation Form kb - Thank You Letter kb - Antibiotic Education kb - Prescription Opioid Use kb Prescriptions: - Neurontin 300 mg Oral Capsule - take 1 capsule by ORAL route At bedtime; 20 capsule; Refills: 0, Product kb Selection Permitted Signatures: Dispatcher [employer] EDMS Cheryl Ellis, PLATE FURNACE OPERATOR-C PLATE FURNACE OPERATOR-Danis Mckeon MD MD rn Cinda Childs RN RN jh5 Shital Grey RN RN tp1
[2022-07-19 14:27] VITALS: TEMP 98.4
== END 2022-07-19 14:22 | disposition home or self-care (01) ==
LOC: ER 11:19
DX: M54.31 Sciatica, right side (principal); Z88.6 Allergy status to analgesic agent; E78.00 Pure hypercholesterolemia, unspecified; I10 Essential (primary) hypertension
CPT/HCPCS: 99284

== ENCOUNTER 2023-01-31 15:28 | Observation (INO) | payer OTHER ==
--- OUTSIDE RECORDS SUMMARY | 2023-01-31 15:34 | XMS REPORT | Continuity of Care Document ---
:1945 Author Organization [facility] t Address [address] [facility] [address] [place] [address] Care Team Providers Name Role Phone Cheyanne Shah MD Primary Care Physician BRYAN_Fouzia Attending Clinician Unavailable Cindy Martinez MA Attending Clinician Unavailable Cheyanne Shah Attending Clinician [phone] José Luis Dugan MD Attending Clinician Elkin [...] MD JOSÉ LUIS DUGAN Admitting Clinician Unavailable joanna Admitting Clinician Unavailable Payers Payer Name Policy Type Policy Number Effective Date Expiration Date Sammy lundberg MEDICARE B-[place]: [id number] 2012 [employer] 00:00:00 CIGNA SUPPLEMENTAL - [id number] 2013 [employer] AND 00:00:00 LIFE INSURANCE (MEDICARE SUPPLEMENT) Problems Condition Condition Condition Status Onset Resolution Last Treating Co mments Source Name Details Category Date Date Treatment Clinician Date Acute Acute Problem Active Ney sinusitis Sinusitis 4-18 Comm uni 00:00: ty 00 [facility] Urge Urge Problem Active Ney incontinen Incontinen 4-18 Co mmuni ce of ce of 00:00: ty urine Urine 00 [facility] Injury of Injury of Problem Active Swe valerie head Head 3-23 Communi 00:00: ty 00 [facility] Fall Fall Problem Active Ney 3-23 Communi 00:00: ty 00 [facility] Hyperlipid Hyperlipid Problem Active S weeny emia emia 1-12 Communi 00:00: ty 00 [facility] Pain of Pain of Problem Active 2021-09 Ney left hip Left Hip 0-10 Commun i joint Joint 00:00: ty 00 [facility] Pain of Pain of Problem Active Ney toe of Toe of 6-29 Communi right foot Right Foot 00:00: ty 00 [facility] Dark Dark Problem Active Ney stools Stools 4-07 Communi 00:00: ty 00 [facility] HTN HTN Disease Active Methodi (hypertens (hypertens 3-08 st ion) ion) 00:00: Hospita 00 l HLD HLD Disease Active [facility] (hyperlipi (hyperlipi 3-08 st demia) demia) 00:00: Hospita 00 l Type 2 Type 2 Disease Active [facility] diabetes diabetes 3-08 st mellitus mellitus 00:00: Hospit a 00 l Hypothyroi Hypothyroi Disease Active M ethodi dism dism 3-08 st 00:00: Hospita 00 l Osteoarthr Osteoarthr Disease Active M ethodi itis itis 2 st 00:00: Hospita 00 l Primary Primary Disease Active 2020-09 Overview: Meth tiffani osteoarthr osteoarthr 2-[address] itis of itis of 00:00: g of this Hospi ta right hip right hip 00 note l might be different from the original. Added automatic ally from request for surgery [id number] History of History of Problem Active S weeny fall Fall 4- Communi 00:00: ty 00 Hospita Clinics Pain in Pain in Problem Active Ney right hip Right Hip 4- Comm uni joint Joint 00:00: ty 00 [facility] Clin[facility] Dizziness Dizziness Problem Active Swe valerie 4-19 Communi 00:00: ty 00 Hospita Clinics Nausea and Nausea and Problem Active S weeny vomiting Vomiting 4-19 Commun i 00:00: ty 00 Hospita Clinics Urinary Urinary Problem Active 2019-09 Ney tract Tract 2-07 Communi infectious Infectious 00:00: ty disease Disease 00 Hospita Clinics Confusiona Confusiona Problem Active 2019-09 S weeny l state l State 0- [facility]00: ty [facility] Pain in Pain in Problem Active 2019-09 Ney right arm Right Arm 0- Comm uni 00:00: ty [facility] Malaise Malaise Problem Active Ney 4-27 Communi 00:00: ty [facility] Asthmatic Asthmatic Problem Active Swe valerie bronchitis Bronchitis 2-26 Co mmuni 00:00: ty [facility] Allergic Allergic Problem Active Sween y reaction Reaction 2- Commun i to drug to Drug 00:00: ty 00 [facility] Cervical Cervical Disease Active 2018- Metho di spinal spinal 7-15 st stenosis stenosis 00:00: Hospit a 00 l Long-term Long-term Problem Active Swe valerie drug Drug 4-15 Communi therapy Therapy 00:00: ty [facility] Essential Essential Problem Active Swe valerie hypertensi Hypertensi 3-06 Co mmuni on on 00:00: ty 00 Hospita Clinics Type 2 Type 2 Problem Active Ney diabetes Diabetes 4-18 Commun i mellitus Mellitus 00:00: ty [facility] Claudicati Claudicati Problem Active 2017- S weeny on on 12-27 Communi 00:00: ty 00 Hospita Clinics Low back Low Back Problem Active Sween y pain Pain 4-18 Communi 00:00: ty [facility] Allergies, Adverse Reactions, Alerts Allergy Allergy Status [...] drug Iodine Propensi Active Anaphylaxis IV DYE; Me thodi ty to 03-12 REDNESS, st adverse 00:00: PASS OUT, Hospit a reaction 00 THROAT l s to SWELLED drug UP PER PT Levaquin Allergy Active Fatal Facial Ney to swelling Communi substanc ty e Hospita l Clinics Family History Family Member Diagnosis Comments Start Date Stop Date Source Natural brother Diabetes [facility] brother Cancer [facility] father Heart disease [facility] father Lung disease [facility] mother Hypertension [facility] sister Cancer [facility] sister Diabetes [facility] Social History Social Habit Start Date Stop Date Quantity Comments Source Gender identity [facility] History of Social 2022-12-13 2022-12-[address] function 00:00:00 00:00:00 Hospital Alcohol intake 2021-12-31 2021-12-31 Ex-drinker [facility] 00:[facility]:00 00:[facility]:00 (finding) Hospital Tobacco use and 2021-05-21 2021-05-21 Smokeless [facility] exposure 00:00:00 00:00:00 tobacco non-user Hospital Sex Assigned At [birth year] [facility] 00:[facility] Smoking Status Start Date Stop Date Source Never smoked tobacco [facility] Medications Ordered Filled Start Stop Current Ordering Indication Dosage Frequency Signature Comments Components Source Medication Medication Date Date Medication? Clinician (SIG) Name Name HYDROcodone Yes [id number] 1{tbl} Q4H Take 1 M ethodi -acetaminop 3-[address] lantigua ([employer]) 17:49: mouth Hospi ta 10-325 mg 01 every 4 l per tablet (four) hours as needed for moderate pain .acute pain. furosemide 2021-0 Yes 20mg QD Take 20 mg M ethodi (LASIX) 20 3-[address] mg tablet 17:49: in the Hospit a morning. l LORAZepam 2021-0 Yes .5mg Take 0.5 Meth tiffani (ATIVAN) 3-[address] 0.5 MG 17:49: mouth as Hospita tablet 01 needed in l the morning for anxiety. HYDROcodone 2021-0 Yes [id number] 1{tbl} Q4H Take 1 M ethodi -acetaminop 3-[address] hen (NORCO) 17:49: mouth Hospi ta 10-325 mg 01 every 4 l per tablet (four) hours as needed for moderate pain .acute pain. furosemide Yes 20mg QD Take 20 mg M ethodi (LASIX) 20 3-[address] mg tablet 17:49: in the Hospit a morning. l LORAZepam 0 Yes .5mg Take 0.5 Meth tiffani (ATIVAN) 3-[address] 0.5 MG 17:49: mouth as Hospita tablet 01 needed in l the morning for anxiety. docusate 2021- No 100mg QD Take 100 Met hodi sodium 3-11 03-[address] (COLACE) 17:49: 00:00 mouth in Hosp jessie 100 MG 01 :00 the l capsule morning. vit A/vit 2021-0 2021- No 1{tbl} Q.5D Take 1 Met hodi C/vit 3-10 03-[address] E/zinc/vanessa 17:49: 00:00 mouth 2 Ho spita er 45 :00 (two) l (PRESERVISI times a ON . ORAL) ubidecareno 2021-0 2021- No 1{capsu Q.5D Take 1 Methodi ne (CO Q-10 3-10 03-10 le} capsule by s t ORAL) 17:49: 00:00 mouth 2 Hospita 45 :00 (two) l times a day. VITAMIN B 2021-0 2021- No Take by Meth tiffani COMPLEX 3-10 03-[address] ORAL 17:49: 00:00 Hospita 45 :00 l BIOTIN ORAL 2021- No Take by Me thodi 11-[address] 17:49: 00:00 Hospita 45 :00 l vit 2021- No Take by [facility] A-D3-tocoph 11-[address] ersolan-vit 17:49: 00:00 Hospi ta K 2,000 45 :00 l unit- 2,000 mcg/mL liquid atorvastati Yes 20mg QD Take 20 mg [...] l times a day with meals. pantoprazol Yes 40mg QD Take 40 mg Methodi e 3-[address] (PROTONIX) 17:49: daily. Hospi ta 40 MG EC 43 l tablet venlafaxine Yes 225mg QD Take 225 M ethodi (EFFEXOR) 3-[address] 75 MG 17:49: mouth Hospita tablet 43 nightly. l Takes 75 mg 3 tabs. (225 mg) benzonatate Yes 100mg Q.48509302 Take 100 Method[facility] (TESSALON) 3-[id number] 100 MG 17:49: 3D mouth 3 Hospita capsule 43 (three) l times a day as needed for cough. insulin NPH Yes 24U QD Inject 24 M ethodi hum/reg 3-[address] insulin hm 17:49: under the Ho spita (HUMULIN 43 skin l 70/30 U-100 nightly. INSULIN SUBQ) carboxymeth Yes 1[drp] Q.[id number] Administer [facility] ylcellulose 3-10 [id number] sodium 17:49: 3D both eyes Hospit a (REFRESH 43 3 (three) l OPHT) times a day as needed (dry eye). carboxymeth Yes 1{appli QD Administer [facility] ylcellulose 3-10 cation} 1 st sodium 17:49: applicatio Hospi ta (REFRESH 43 n to both l OPHT) eyes nightly. lisinopriL Yes 10mg QD Take 10 mg [...] l times a day with meals. pantoprazol Yes 40mg QD Take 40 mg Methodi e 3-[address] (PROTONIX) 17:49: daily. Hospi ta 40 MG EC 43 l tablet venlafaxine Yes 225mg QD Take 225 M ethodi (EFFEXOR) 3-[address] 75 MG 17:49: mouth Hospita tablet 43 nightly. l Takes 75 mg 3 tabs. (225 mg) benzonatate Yes 100mg Q.[id number] Take 100 Method[facility] (TESSALON) 3-[id number] 100 MG 17:49: 3D mouth 3 Hospita capsule 43 (three) l times a day as needed for cough. insulin NPH Yes 24U QD Inject 24 M ethodi hum/reg 3-[address] insulin hm 17:49: under the Ho spita (HUMULIN 43 skin l 70/30 U-100 nightly. INSULIN SUBQ) carboxymeth Yes 1[drp] Q.[id number] Administer [facility] ylcellulose 3-10 [id number] sodium 17:49: 3D both eyes Hospit a (REFRESH 43 3 (three) l OPHT) times a day as needed (dry eye). carboxymeth Yes QD Administer Methodi ylcellulose 3-[address] sodium 17:49: applicatio Hospi ta (REFRESH 43 n to both l OPHT) eyes nightly. lisinopriL Yes 10mg QD Take 10 mg [...] 43 daily. l mcg/actuati on nasal spray polyethylen 2021- No 17g QD Take 17 g Methodi e glycol 2-26 03-[address] (MIRALAX) 00:00: 00:00 daily for Ho spita 17 gram 00 :00 30 days. l packet aspirin 2021- No 81mg QD Take 81 mg Met hodi (ECOTRIN) 11-05- by mouth st 81 MG 14:32: 00:00 [...] day for 30 days. HYDROcodone 2021- No [id number] 1{tbl} Q6H Take 1 Methodi -acetaminop 11-05-[address] hen (NORCO) 00:00: 05:59 mouth Hosp jessie 10-325 mg 00 :00 every 6 l per tablet (six) hours as needed for severe pain for up to 5 days .acute pain, surgery [id number]. Max Daily Amount: 4 tablets doxycycline 2021- No 100mg Q.5D Take 2 Me thodi (VIBRAMYCIN -03 12-[address] ) 50 MG 00:00: 05:59 (100 mg Hospit a capsule 00 :00 total) by l mouth 2 (two) times a day for 5 days. rivaroxaban Yes [id number] 10mg QD Take 1 Met hodi (XARELTO) 2-16 tablet (10 st 10 mg 00:00: mg total) Hospita tablet 00 by mouth l daily .deep vein thrombosis prevention in hip surgery, deep vein thrombosis prevention in knee replacemen t. rivaroxaban Yes [id number] 10mg QD Take 1 Met hodi (XARELTO) 2-16 tablet (10 st 10 mg 00:00: mg total) Hospita tablet 00 by mouth l daily .deep vein thrombosis prevention in hip surgery, deep vein thrombosis prevention in knee replacemen t. celecoxib 2021- No 200mg QD Take 1 Meth tiffani (CeleBREX) 10-[address] 200 MG 00:00: 04:59 (200 mg Hospita capsule 00 :00 total) by l mouth daily for 30 days. ondansetron No 4mg Q8H Take 1 Met hodi (Zofran) 4 10-27 tablet (4 st MG tablet 00:00: 05:59 mg total) Ho spita 00 :00 by mouth l every 8 (eight) hours as needed for nausea or vomiting for up [place] [id number] 1{tbl} Q6H Take 1 Methodi -acetaminop 10-27 tablet by hen (NORCO) 00:00: 00:00 mouth Hosp jessie 10-325 mg 00 :00 every 6 l per tablet (six) hours as needed for severe pain for up to 10 days .acute pain, surgery [id number]. Max Daily Amount: 4 tablets lisinopril No 20mg QD Take 20 mg Methodi (PRINIVIL,Z 10-12 by mouth ESTRIL) 20 11:48: 00:00 daily. Hosp jessie mg tablet 04 :00 l nut.tx.comp No 1{bottl Q.[id number] Take 1 Methodi . immune 10-12 e} [id number] Bottle by syst,reg 00:00: 05:59 3D mouth 3 Hosp jessie (Impact 00 :00 (three) l Advanced times a Recovery) day for 5 0.1 days. gram-1.12 kcal/mL liquid nabumetone 2020-09- No [id number] 750mg Q.5D Take 1 Methodi (RELAFEN) 10-[address] 750 MG 00:00: 00:00 (750 mg Hospita tablet 00 :00 total) by l mouth 2 (two) times a day. keTOROlac 2020-09 No [id number] 10mg Q.40614710 Take 1 [facility] (TORadol) 10-19 9107 [id number] tablet (10 st 10 mg 00:00: 05:59 3D mg total) Hospit a tablet 00 :00 by mouth 3 l (three) times a day with meals for 5 days. lisinopriL- 2020-09 Yes Method i hydrochloro 1-08 st thiazide 00:00: Hospita (PRINZIDE) 00 l 20-25 mg per tablet lisinopriL- 2020-09 Yes Method i hydrochloro 1-08 st thiazide 00:00: Hospita (PRINZIDE) 00 l 20-25 mg per tablet atorvastati atorvastati No 1 Q1D atorvastat Ney n 40 mg n 40 mg in 40 mg Commu ni tablet Take tablet Take tablet ty 1 tablet 1 tablet Take 1 Hospi ta every day every day tablet l by oral by oral every day Clin ics route. route. by oral route. Euthyrox 50 Euthyrox 50 No Euthyrox Ney mcg tablet mcg tablet 50 mcg C ommuni Take 1 Take 1 tablet ty tablet by tablet by Take 1 Hos elvie mouth once mouth once tablet by l daily daily mouth once Clinics daily FreeStyle FreeStyle No FreeStyle Ney Lite Strips Lite Strips Lite C ommuni USE 1 STRIP USE 1 STRIP Strips USE ty TO CHECK TO CHECK 1 STRIP TO H ospita GLUCOSE GLUCOSE CHECK l TWICE DAILY TWICE DAILY GLUCOSE Clinics TWICE DAILY Humulin Humulin No Humulin Ney 70/30 U-100 70/30 U-100 70/30 Communi Insulin [...] IN THE EVENING lisinopril lisinopril No lisinopril Ney 10 mg 10 mg 10 mg Communi tablet Take tablet Take tablet ty 1 tablet by 1 tablet by Take 1 Hospita mouth once mouth once tablet by l daily daily mouth once Clinics daily lisinopril lisinopril No lisinopril Ney 20 20 20 Communi mg-hydrochl mg-hydrochl mg-hydroch ty orothiazide orothiazide lorothiazi Hospita 25 mg 25 mg de 25 mg l tablet Take tablet Take tablet Clinics 1 tablet by 1 tablet by Take 1 mouth once mouth once tablet by daily daily mouth once daily meclizine meclizine No meclizine Ney 25 mg 25 mg 25 mg Communi tablet TAKE tablet TAKE tablet ty 1 TABLET BY 1 TABLET BY TAKE 1 Hospita MOUTH THREE MOUTH THREE TABLET BY l TIMES DAILY TIMES DAILY MOUTH Clinics NEEDED NEEDED THREE TIMES DAILY NEEDED metformin metformin No metformin Ney 1,000 mg 1,000 mg 1,000 mg Com sandro tablet Take tablet Take tablet ty 1 tablet by 1 tablet by Take 1 Hospita mouth twice mouth twice tablet by l daily daily mouth Clinics twice daily ondansetron ondansetron No ondansetro Ney 8 mg 8 mg n 8 mg Communi disintegrat disintegrat disintegra ty ing tablet ing tablet ting Hos elvie DISSOLVE 1 DISSOLVE 1 tablet l TABLET IN TABLET IN DISSOLVE 1 Clinics MOUTH TWICE MOUTH TWICE TABLET IN DAILY DAILY MOUTH NEEDED NEEDED TWICE DAILY NEEDED pantoprazol pantoprazol No pantoprazo Ney e 40 mg e 40 mg le [...] relion pen relion pen No relion pen Ney needles 32g needles 32g needles Communi x 4mm 32g x x 4mm 32g x 32g x 4mm ty 4 mm misc 4 mm misc 32g x 4 mm Hospita misc l Clinics venlafaxine venlafaxine No venlafaxin Ney ER 75 mg ER 75 mg e ER 75 mg C ommuni capsule,ext capsule,ext capsule,ex ty ended ended tended Hospita release 24 release 24 release 24 l hr TAKE 3 hr TAKE 3 hr TAKE 3 Clinics CAPSULES BY CAPSULES BY CAPSULES MOUTH AT MOUTH AT BY MOUTH BEDTIME BEDTIME AT BEDTIME atorvastati atorvastati No atorvastat Ney n 40 mg n 40 mg in 40 mg Commu ni tablet TAKE tablet TAKE tablet ty 1 TABLET BY 1 TABLET BY TAKE 1 Hospita MOUTH ONCE MOUTH ONCE TABLET BY l DAILY FOR DAILY FOR MOUTH ONCE Clinics 90 DAYS 90 DAYS DAILY FOR 90 DAYS celecoxib celecoxib No celecoxib Ney 200 mg 200 mg 200 mg Communi capsule capsule capsule ty TAKE 1 TAKE 1 TAKE 1 Hospita CAPSULE BY CAPSULE BY CAPSULE BY l MOUTH ONCE MOUTH ONCE MOUTH ONCE Clinics DAILY FOR DAILY FOR DAILY FOR 30 DAYS 30 DAYS 30 DAYS Euthyrox 50 Euthyrox 50 No Euthyrox Ney mcg tablet mcg tablet 50 mcg C ommuni Take 1 Take 1 tablet ty tablet by tablet by Take 1 Hos elvie mouth once mouth once tablet by l daily daily mouth once Clinics daily FreeStyle FreeStyle No FreeStyle Ney Lite Strips Lite Strips Lite C ommuni USE 1 STRIP USE 1 STRIP Strips USE ty TO CHECK TO CHECK 1 STRIP TO H ospita GLUCOSE GLUCOSE CHECK l TWICE DAILY TWICE DAILY GLUCOSE Clinics TWICE DAILY Humulin Humulin No Humulin Ney 70/30 U-100 70/30 U-100 70/30 Communi Insulin [...] IN THE EVENING hydrocodone hydrocodone No hydrocodon Ney 10 10 e 10 Communi mg-acetamin mg-acetamin [...] TABLETS PER DAY lisinopril lisinopril No lisinopril Ney 10 mg 10 mg 10 mg Communi tablet TAKE tablet TAKE tablet ty 1 TABLET BY 1 TABLET BY TAKE 1 Hospita MOUTH ONCE MOUTH ONCE TABLET BY l DAILY DAILY MOUTH ONCE Clinics DAILY lisinopril lisinopril No lisinopril Ney 20 20 20 Communi mg-hydrochl mg-hydrochl mg-hydroch ty orothiazide orothiazide lorothiazi Hospita 25 mg 25 mg de 25 mg l tablet TAKE tablet TAKE tablet Clinics 1 TABLET BY 1 TABLET BY TAKE 1 MOUTH ONCE MOUTH ONCE TABLET BY DAILY DAILY MOUTH ONCE DAILY meclizine meclizine No meclizine Ney 25 mg 25 mg 25 mg Communi tablet TAKE tablet TAKE tablet ty 1 TABLET BY 1 TABLET BY TAKE 1 Hospita MOUTH THREE MOUTH THREE TABLET BY l TIMES DAILY TIMES DAILY MOUTH Clinics NEEDED NEEDED THREE TIMES DAILY NEEDED metformin metformin No metformin Ney 1,000 mg 1,000 mg 1,000 mg Com sandro tablet TAKE tablet TAKE tablet ty 1 TABLET BY 1 TABLET BY TAKE 1 Hospita MOUTH TWICE MOUTH TWICE TABLET BY l DAILY DAILY MOUTH Clinics TWICE DAILY ondansetron ondansetron No ondansetro Ney 8 mg 8 mg n 8 mg Communi disintegrat disintegrat disintegra ty ing tablet ing tablet ting Hos elvie DISSOLVE 1 DISSOLVE 1 tablet l TABLET IN TABLET IN DISSOLVE 1 Clinics MOUTH TWICE MOUTH TWICE TABLET IN DAILY DAILY MOUTH NEEDED NEEDED TWICE DAILY NEEDED ondansetron ondansetron No ondansetro Ney HCl 4 mg HCl 4 mg n [...] TO 10 DAYS pantoprazol pantoprazol No pantoprazo Ney e 40 mg e 40 mg le [...] relion pen relion pen No relion pen Ney needles 32g needles 32g needles Communi x 4mm 32g x x 4mm 32g x 32g x 4mm ty 4 mm misc 4 mm misc 32g x 4 mm Hospita misc l Clinics triazolam triazolam No triazolam Ney 0.25 mg 0.25 mg 0.25 mg Commun [...] TO APPOINTMEN T venlafaxine venlafaxine No venlafaxin Ney ER 75 mg ER 75 mg e ER 75 mg C ommuni capsule,ext capsule,ext capsule,ex ty ended ended tended Hospita release 24 release 24 release 24 l hr TAKE 3 hr TAKE 3 hr TAKE 3 Clinics CAPSULES BY CAPSULES BY CAPSULES MOUTH AT MOUTH AT BY MOUTH BEDTIME BEDTIME AT BEDTIME Xarelto 10 Xarelto 10 No Xarelto 10 Ney mg tablet mg tablet mg tablet Communi TAKE 1 TAKE 1 TAKE 1 ty TABLET BY TABLET BY TABLET BY Hospita MOUTH ONCE MOUTH ONCE MOUTH ONCE l DAILY DAILY DAILY Clinics atorvastati atorvastati No atorvastat Ney n 40 mg n 40 mg in 40 mg Commu ni tablet TAKE tablet TAKE tablet ty 1 TABLET BY 1 TABLET BY TAKE 1 Hospita MOUTH ONCE MOUTH ONCE TABLET BY l DAILY FOR DAILY FOR MOUTH ONCE Clinics 90 DAYS 90 DAYS DAILY FOR 90 DAYS colchicine colchicine No 1 BID colchicine Ney 0.6 mg 0.6 mg 0.6 mg Communi tablet Take tablet Take tablet ty 1 tablet 1 tablet Take 1 Hospi ta twice a day twice a day tablet l by oral by oral twice a Clinic s route as route as day by needed. needed. oral route as needed. estradiol estradiol No estradiol Ney 0.01% (0.1 0.01% (0.1 0.01% (0.1 Communi mg/gram) mg/gram) mg/gram) ty vaginal vaginal vaginal Hospit a cream cream cream l INSERT INSERT INSERT Clinics 0.5GM WITH 0.5GM WITH 0.5GM WITH APPLICATOR APPLICATOR APPLICATOR VAGINALLY VAGINALLY VAGINALLY DIRECTED DIRECTED THREE TIMES THREE TIMES DIRECTED A WEEK A WEEK THREE TIMES A WEEK Euthyrox 50 Euthyrox 50 No Euthyrox Ney mcg tablet mcg tablet 50 mcg C ommuni TAKE 1 TAKE 1 tablet ty TABLET BY TABLET BY TAKE 1 Hos elvie MOUTH ONCE MOUTH ONCE TABLET BY l DAILY DAILY MOUTH ONCE Clinics DAILY FreeStyle FreeStyle No FreeStyle Ney Abel 14 Abel 14 Abel 14 Com sandro Day Angela Day Angela Day Angela ty USE USE USE Hospita DIRECTED DIRECTED DIRECTED l Clinics FreeStyle FreeStyle No FreeStyle Ney Abel 14 Abel 14 Abel 14 Com sandro Day Sensor Day Sensor Day Sensor ty kit USE kit USE kit USE Hospita DIRECTED DIRECTED DIRECTED l Clinics FreeStyle FreeStyle No FreeStyle Ney Lite Strips Lite Strips Lite C ommuni USE 1 STRIP USE 1 STRIP Strips USE ty TO CHECK TO CHECK 1 STRIP TO H ospita GLUCOSE GLUCOSE CHECK l TWICE DAILY TWICE DAILY GLUCOSE Clinics TWICE DAILY Humulin Humulin No Humulin Ney 70/30 U-100 70/30 U-100 70/30 Communi Insulin [...] EVENING indomethaci indomethaci No 1capsul BID indomethac Ney n 50 mg n 50 mg e(s) in 50 mg Commu ni capsule capsule capsule ty Take 1 Take 1 Take 1 Hospita capsule capsule capsule l twice a day twice a day twice a Clinics by oral by oral day by route as route as oral route needed. needed. as needed. lisinopril lisinopril No lisinopril Ney 10 mg 10 mg 10 mg Communi tablet Take tablet Take tablet ty 1 tablet by 1 tablet by Take 1 Hospita mouth once mouth once tablet by l daily daily mouth once Clinics daily lisinopril lisinopril No lisinopril Ney 20 20 20 Communi mg-hydrochl mg-hydrochl mg-hydroch ty orothiazide orothiazide lorothiazi Hospita 25 mg 25 mg de 25 mg l tablet Take tablet Take tablet Clinics 1 tablet by 1 tablet by Take 1 mouth once mouth once tablet by daily daily mouth once daily meclizine meclizine No meclizine Ney 25 mg 25 mg 25 mg Communi tablet TAKE tablet TAKE tablet ty 1 TABLET BY 1 TABLET BY TAKE 1 Hospita MOUTH THREE MOUTH THREE TABLET BY l TIMES DAILY TIMES DAILY MOUTH Clinics NEEDED NEEDED THREE TIMES DAILY NEEDED oxybutynin oxybutynin No oxybutynin Ney chloride ER chloride ER chloride Communi 10 mg 10 mg ER 10 mg ty tablet,exte tablet,exte tablet,ext Hospita nded nded ended l release 24 release 24 release 24 Clinics hr TAKE 1 hr TAKE 1 hr TAKE 1 TABLET BY TABLET BY TABLET BY MOUTH ONCE MOUTH ONCE MOUTH ONCE DAILY DAILY DAILY pantoprazol pantoprazol No pantoprazo Ney e 40 mg e 40 mg le [...] x gauge x diabetic ty " USE 32" USE 32 gauge x Hospita DIRECTED DIRECTED " USE l TWICE DAILY TWICE DAILY C linics WITH PEN WITH PEN DIRECTED TWICE DAILY WITH PEN relion pen relion pen No relion pen Ney needles 32g needles 32g needles Communi x 4mm 32g x x 4mm 32g x 32g x 4mm ty 4 mm misc 4 mm misc 32g x 4 mm Hospita misc l Clinics tramadol 50 tramadol 50 No 1 BID tramadol Ney mg tablet mg tablet 50 mg Comm uni Take 1 Take 1 tablet ty tablet tablet Take 1 Hospita twice a day twice a day tablet l by oral by oral twice a Clinic s route as route as day by needed. needed. oral route as needed. venlafaxine venlafaxine No venlafaxin Ney ER 75 mg ER 75 mg e ER 75 mg C ommuni capsule,ext capsule,ext capsule,ex ty ended ended tended Hospita release 24 release 24 release 24 l hr TAKE 3 hr TAKE 3 hr TAKE 3 Clinics CAPSULES BY CAPSULES BY CAPSULES MOUTH AT MOUTH AT BY MOUTH BEDTIME BEDTIME AT BEDTIME atorvastati atorvastati No atorvastat Ney n 40 mg n 40 mg in 40 mg Commu ni tablet TAKE tablet TAKE tablet ty 1 TABLET BY 1 TABLET BY TAKE 1 Hospita MOUTH ONCE MOUTH ONCE TABLET BY l DAILY FOR DAILY FOR MOUTH ONCE Clinics 90 DAYS 90 DAYS DAILY FOR 90 DAYS colchicine colchicine No 1 BID colchicine Ney 0.6 mg 0.6 mg 0.6 mg Communi tablet Take tablet Take tablet ty 1 tablet 1 tablet Take 1 Hospi ta twice a day twice a day tablet l by oral by oral twice a Clinic s route as route as day by needed. needed. oral route as needed. estradiol estradiol No estradiol Ney 0.01% (0.1 0.01% (0.1 0.01% (0.1 Communi mg/gram) mg/gram) mg/gram) ty vaginal vaginal vaginal Hospit a cream cream cream l INSERT INSERT INSERT Clinics 0.5GM WITH 0.5GM WITH 0.5GM WITH APPLICATOR APPLICATOR APPLICATOR VAGINALLY VAGINALLY VAGINALLY DIRECTED DIRECTED THREE TIMES THREE TIMES DIRECTED A WEEK A WEEK THREE TIMES A WEEK Euthyrox 50 Euthyrox 50 No Euthyrox Ney mcg tablet mcg tablet 50 mcg C ommuni TAKE 1 TAKE 1 tablet ty TABLET BY TABLET BY TAKE 1 Hos elvie MOUTH ONCE MOUTH ONCE TABLET BY l DAILY DAILY MOUTH ONCE Clinics DAILY FreeStyle FreeStyle No FreeStyle Ney Abel 14 Abel 14 Abel 14 Com sandro Day Angela Day Angela Day Angela ty USE USE USE Hospita DIRECTED DIRECTED DIRECTED l Clinics FreeStyle FreeStyle No FreeStyle Ney Abel 14 Abel 14 Abel 14 Com sandro Day Sensor Day Sensor Day Sensor ty kit USE kit USE kit USE Hospita DIRECTED DIRECTED DIRECTED l Clinics FreeStyle FreeStyle No FreeStyle Ney Lite Strips Lite Strips Lite C ommuni USE 1 STRIP USE 1 STRIP Strips USE ty TO CHECK TO CHECK 1 STRIP TO H [facility]spita GLUCOSE GLUCOSE CHECK l TWICE DAILY TWICE DAILY GLUCOSE Clinics TWICE DAILY Humulin Humulin No Humulin Ney 70/30 U-100 70/30 U-100 70/30 Communi Insulin [...] IN THE EVENING indomethaci indomethaci No indomethac Ney n 50 mg n 50 mg in 50 mg Commu ni capsule capsule capsule ty Take 1 Take 1 Take 1 Hospita capsule capsule capsule l twice a day twice a day twice a Clinics by oral by oral day by route as route as oral route needed. needed. as needed. lisinopril lisinopril No lisinopril Ney 10 mg 10 mg 10 mg Communi tablet Take tablet Take tablet ty 1 tablet by 1 tablet by Take 1 Hospita mouth once mouth once tablet by l daily daily mouth once Clinics daily lisinopril lisinopril No lisinopril Ney 20 20 20 Communi mg-hydrochl mg-hydrochl mg-hydroch ty orothiazide orothiazide [facility] 25 mg 25 mg de 25 mg l tablet Take tablet Take tablet Clinics 1 tablet by 1 tablet by Take 1 mouth once mouth once tablet by daily daily mouth once daily meclizine meclizine No meclizine Ney 25 mg 25 mg 25 mg [facility]i tablet TAKE tablet TAKE tablet ty 1 TABLET BY 1 TABLET BY TAKE 1 Hospita MOUTH THREE MOUTH THREE TABLET BY l TIMES DAILY TIMES DAILY MOUTH Clinics NEEDED NEEDED THREE TIMES DAILY NEEDED oxybutynin oxybutynin No oxybutynin Ney chloride ER chloride ER chloride Communi 10 mg 10 mg ER 10 mg ty tablet,exte tablet,exte tablet,ext Hospita nded nded ended l release 24 release 24 release 24 Clinics hr TAKE 1 hr TAKE 1 hr TAKE 1 TABLET BY TABLET BY TABLET BY MOUTH ONCE MOUTH ONCE MOUTH ONCE DAILY DAILY DAILY pantoprazol pantoprazol No pantoprazo Ney e 40 mg e 40 mg le [...] relion pen relion pen No relion pen Ney needles 32g needles 32g needles Communi x 4mm 32g x x 4mm 32g x 32g x 4mm ty 4 mm misc 4 mm misc 32g x 4 mm [facility]ospita misc l Clinics tramadol 50 tramadol 50 No tramadol Ney mg tablet mg tablet 50 mg Comm uni Take 1 Take 1 tablet ty tablet tablet Take 1 Hospita twice a day twice a day tablet l by oral by oral twice a Clinic s route as route as day by needed. needed. oral route as needed. venlafaxine venlafaxine No venlafaxin Ney ER 75 mg ER 75 mg e ER 75 mg C [facility]i capsule,ext capsule,ext capsule,ex ty ended ended tended Hospita release 24 release 24 release 24 l hr TAKE 3 hr TAKE 3 hr TAKE 3 Clinics CAPSULES BY CAPSULES BY CAPSULES MOUTH AT MOUTH AT BY MOUTH BEDTIME BEDTIME AT BEDTIME Alive Alive No Alive Ney Immune Immune Immune [facility] ty [facility] l Clinics atorvastati atorvastati No atorvastat Ney n 40 mg n 40 mg in 40 mg Commu ni tablet TAKE tablet TAKE tablet ty 1 TABLET BY 1 TABLET BY TAKE 1 Hospita MOUTH ONCE MOUTH ONCE TABLET BY l DAILY FOR DAILY FOR MOUTH ONCE Clinics 90 DAYS 90 DAYS DAILY FOR 90 DAYS [facility] estradiol estradiol No estradiol Ney 0.01% (0.1 0.01% (0.1 0.01% (0.1 Communi mg/gram) mg/gram) mg/gram) ty vaginal vaginal vaginal Hospit a cream cream cream l INSERT INSERT INSERT Clinics 0.5GM WITH 0.5GM WITH 0.5GM WITH APPLICATOR APPLICATOR APPLICATOR VAGINALLY VAGINALLY VAGINALLY DIRECTED DIRECTED THREE TIMES THREE TIMES DIRECTED A WEEK A WEEK THREE TIMES A WEEK Euthyrox 50 Euthyrox 50 No Euthyrox Ney mcg tablet mcg tablet 50 mcg C om[facility]i Take 1 Take 1 tablet ty tablet by tablet by Take 1 [facility] mouth once mouth once tablet by l daily daily mouth once Clinics daily FreeStyle FreeStyle No FreeStyle Ney Abel 14 Abel 14 Abel 14 Com sandro Day Angela Day Angela Day Angela ty USE USE USE Hospita DIRECTED DIRECTED DIRECTED l Clinics FreeStyle FreeStyle No FreeStyle Ney Abel 14 Abel 14 Abel 14 Com sandro Day Sensor Day Sensor Day Sensor ty kit USE kit USE kit USE Hospita DIRECTED DIRECTED DIRECTED l Clinics FreeStyle FreeStyle No FreeStyle Ney Lite Strips Lite Strips Lite C ommuni USE 1 STRIP USE 1 STRIP Strips USE ty TO CHECK TO CHECK 1 STRIP TO H [facility]spita GLUCOSE GLUCOSE CHECK l TWICE DAILY TWICE DAILY GLUCOSE Clinics TWICE DAILY Humulin Humulin No Humulin Ney 70/30 U-100 70/30 U-100 70/30 Communi Insulin [...] IN THE EVENING indomethaci indomethaci No indomethac Ney n 50 mg n 50 mg in 50 mg Commu ni capsule capsule capsule ty Take 1 Take 1 Take 1 Hospita capsule capsule capsule l twice a day twice a day twice a Clinics by oral by oral day by route as route as oral route needed. needed. as needed. lisinopril lisinopril No lisinopril Ney 10 mg 10 mg 10 mg [facility]i tablet Take tablet Take tablet ty 1 tablet by 1 tablet by Take 1 Hospita mouth once mouth once tablet by l daily daily mouth once Clinics daily lisinopril lisinopril No lisinopril Ney 20 20 20 Communi mg-hydrochl mg-hydrochl mg-hydroch ty orothiazide orothiazide [facility] 25 mg 25 mg de 25 mg l tablet Take tablet Take tablet Clinics 1 tablet by 1 tablet by Take 1 mouth once mouth once tablet by daily daily mouth once daily meclizine meclizine No meclizine Ney 25 mg 25 mg 25 mg [facility]i tablet TAKE tablet TAKE tablet ty 1 TABLET BY 1 TABLET BY TAKE 1 Hospita MOUTH THREE MOUTH THREE TABLET BY l TIMES DAILY TIMES DAILY MOUTH Clinics NEEDED NEEDED THREE TIMES DAILY NEEDED oxybutynin oxybutynin No oxybutynin Ney chloride ER chloride ER chloride Communi 10 mg 10 mg ER 10 mg ty tablet,exte tablet,exte tablet,ext Hospita nded nded ended l release 24 release 24 release 24 Clinics hr TAKE 1 hr TAKE 1 hr TAKE 1 TABLET BY TABLET BY TABLET BY MOUTH ONCE MOUTH ONCE MOUTH ONCE DAILY DAILY DAILY pantoprazol pantoprazol No pantoprazo Ney e 40 mg e 40 mg le [...] DAILY WITH PEN PreserVisio PreserVisio No PreserVisi Ney n AREDS n AREDS on AREDS Commu ni ty [facility]ospita l Clinics relion pen relion pen No relion pen Ney needles 32g needles 32g needles Communi x 4mm 32g x x 4mm 32g x 32g x 4mm ty 4 mm misc 4 mm misc 32g x 4 mm [facility]ospita misc l Clinics Super B Super B No Super B Ney Complex 100 Complex 100 Complex Communi tablet Take tablet Take 100 tablet ty by oral by oral Take by Hospit a route. route. oral l route. Clinics tramadol 50 tramadol 50 No tramadol Ney mg tablet mg tablet 50 mg Comm uni Take 1 Take 1 tablet ty tablet tablet Take 1 Hospita twice a day twice a day tablet l by oral by oral twice a Clinic s route as route as day by needed. needed. oral route as needed. venlafaxine venlafaxine No venlafaxin Ney ER 75 mg ER 75 mg e ER 75 mg C om[facility]i capsule,ext capsule,ext capsule,ex ty ended ended tended Hospita release 24 release 24 release 24 l hr TAKE 3 hr TAKE 3 hr TAKE 3 Clinics CAPSULES BY CAPSULES BY CAPSULES MOUTH AT MOUTH AT BY MOUTH BEDTIME BEDTIME AT BEDTIME Alive Alive No Alive Ney Immune Immune Immune [facility] ty [facility] l Clinics atorvastati atorvastati No atorvastat Ney n 40 mg n 40 mg in 40 mg Commu ni tablet TAKE tablet TAKE tablet ty 1 TABLET BY 1 TABLET BY TAKE 1 Hospita MOUTH ONCE MOUTH ONCE TABLET BY l DAILY FOR DAILY FOR MOUTH ONCE Clinics 90 DAYS 90 DAYS DAILY FOR 90 DAYS [facility]ics estradiol estradiol No estradiol Ney 0.01% (0.1 0.01% (0.1 0.01% (0.1 Communi mg/gram) mg/gram) mg/gram) ty vaginal vaginal vaginal Hospit a cream cream cream l INSERT INSERT INSERT Clinics 0.5GM WITH 0.5GM WITH 0.5GM WITH APPLICATOR APPLICATOR APPLICATOR VAGINALLY VAGINALLY VAGINALLY DIRECTED DIRECTED THREE TIMES THREE TIMES DIRECTED A WEEK A WEEK THREE TIMES A WEEK FreeStyle FreeStyle No FreeStyle Ney Abel 14 Abel 14 Abel 14 Com sandro Day Angela Day Angela Day Angela ty USE USE USE Hospita DIRECTED DIRECTED DIRECTED l Clinics FreeStyle FreeStyle No FreeStyle Ney Abel 14 Abel 14 Abel 14 Com sandro Day Sensor Day Sensor Day Sensor ty kit USE kit USE kit USE Hospita DIRECTED DIRECTED DIRECTED l Clinics FreeStyle FreeStyle No FreeStyle Ney Lite Strips Lite Strips Lite C ommuni USE 1 STRIP USE 1 STRIP Strips USE ty TO CHECK TO CHECK 1 STRIP TO H ospita GLUCOSE GLUCOSE CHECK l TWICE DAILY TWICE DAILY GLUCOSE Clinics TWICE DAILY Humulin Humulin No Humulin Ney 70/30 U-100 70/30 U-100 70/30 Communi Insulin [...] IN THE EVENING indomethaci indomethaci No indomethac Ney n 50 mg n 50 mg in 50 mg Commu ni capsule capsule capsule ty Take 1 Take 1 Take 1 [facility]ospita capsule capsule capsule l twice a day twice a day twice a Clinics by oral by oral day by route as route as oral route needed. needed. as needed. levothyroxi levothyroxi No levothyrox Ney ne 50 mcg ne 50 mcg ine 50 mcg Communi tablet Take tablet Take tablet ty 1 tablet by 1 tablet by Take 1 Hospita mouth once mouth once tablet by l daily daily mouth once Clinics daily lisinopril lisinopril No lisinopril Ney 10 mg 10 mg 10 mg Communi tablet Take tablet Take tablet ty 1 tablet by 1 tablet by Take 1 Hospita mouth once mouth once tablet by l daily daily mouth once Clinics daily lisinopril lisinopril No lisinopril Ney 20 20 20 Communi mg-hydrochl mg-hydrochl mg-hydroch ty orothiazide orothiazide [facility] 25 mg 25 mg de 25 mg l tablet Take tablet Take tablet Clinics 1 tablet by 1 tablet by Take 1 mouth once mouth once tablet by daily daily mouth once daily meclizine meclizine No meclizine Ney 25 mg 25 mg 25 mg Communi tablet TAKE tablet TAKE tablet ty 1 TABLET BY 1 TABLET BY TAKE 1 Hospita MOUTH THREE MOUTH THREE TABLET BY l TIMES DAILY TIMES DAILY MOUTH Clinics NEEDED NEEDED THREE TIMES DAILY NEEDED oxybutynin oxybutynin No oxybutynin Ney chloride ER chloride ER chloride Communi 10 mg 10 mg ER 10 mg ty tablet,exte tablet,exte tablet,ext Hospita nded nded ended l release 24 release 24 release 24 Clinics hr Take 1 hr Take 1 hr Take 1 tablet tablet tablet every day every day every day by oral by oral by oral route. route. route. pantoprazol pantoprazol No pantoprazo Ney e 40 mg e 40 mg le [...] DAILY WITH PEN PreserVisio PreserVisio No PreserVisi Ney n AREDS n AREDS on AREDS Commu ni ty [facility]ospita l Clinics relion pen relion pen No relion pen Ney needles 32g needles 32g needles Communi x 4mm 32g x x 4mm 32g x 32g x 4mm ty 4 mm misc 4 mm misc 32g x 4 mm Hospita misc l Clinics Super B Super B No Super B Ney Complex 100 Complex 100 Complex Communi tablet Take tablet Take 100 tablet ty by oral by oral Take by Hospit a route. route. oral l route. Clinics venlafaxine venlafaxine No venlafaxin Ney ER 75 mg ER 75 mg e ER 75 mg C om[facility]i capsule,ext capsule,ext capsule,ex ty ended ended tended Hospita release 24 release 24 release 24 l hr TAKE 3 hr TAKE 3 hr TAKE 3 Clinics CAPSULES BY CAPSULES BY CAPSULES MOUTH AT MOUTH AT BY MOUTH BEDTIME BEDTIME AT BEDTIME Alive Alive No Alive Ney Immune Immune Immune [facility] ty [facility] l Clinics atorvastati atorvastati No atorvastat Ney n 40 mg n 40 mg in 40 mg Commu ni tablet TAKE tablet TAKE tablet ty 1 TABLET BY 1 TABLET BY TAKE 1 Hospita MOUTH ONCE MOUTH ONCE TABLET BY l DAILY FOR DAILY FOR MOUTH ONCE Clinics 90 DAYS 90 DAYS DAILY FOR 90 DAYS benzonatate benzonatate No 1capsul TID benzonatat Ney 100 mg 100 mg e(s) e 100 mg Communi capsule capsule capsule ty Take 1 Take 1 Take 1 Hospita capsule 3 capsule 3 capsule 3 l times a day times a day times a Clinics by oral by oral day by route as route as oral route needed. needed. as needed. cefuroxime cefuroxime No 1 Q12H cefuroxime Ney axetil 500 axetil 500 axetil 500 [facility]i mg tablet mg tablet mg tablet ty Take 1 Take 1 Take 1 Hospita tablet tablet tablet l every 12 every 12 every 12 Cli nics hours by hours by hours by oral route. oral route. oral route. [facility]ics estradiol estradiol No estradiol Ney 0.01% (0.1 0.01% (0.1 0.01% (0.1 [facility]i mg/gram) mg/gram) mg/gram) ty vaginal vaginal vaginal Hospit a cream cream cream l INSERT INSERT INSERT Clinics 0.5GM WITH 0.5GM WITH 0.5GM WITH APPLICATOR APPLICATOR APPLICATOR VAGINALLY VAGINALLY VAGINALLY DIRECTED DIRECTED THREE TIMES THREE TIMES DIRECTED A WEEK A WEEK THREE TIMES A WEEK FreeStyle FreeStyle No FreeStyle Ney Abel 14 Abel 14 Abel 14 Com sandro Day Angela Day Angela Day Angela ty USE USE USE Hospita DIRECTED DIRECTED DIRECTED l Clinics FreeStyle FreeStyle No FreeStyle Ney Abel 14 Abel 14 Abel 14 Com sandro Day Sensor Day Sensor Day Sensor ty kit USE kit USE kit USE Hospita DIRECTED DIRECTED DIRECTED l Clinics FreeStyle FreeStyle No FreeStyle Ney Lite Strips Lite Strips Lite C ommuni USE 1 STRIP USE 1 STRIP Strips USE ty TO CHECK TO CHECK 1 STRIP TO H ospita GLUCOSE GLUCOSE CHECK l TWICE DAILY TWICE DAILY GLUCOSE Clinics TWICE DAILY Humulin Humulin No Humulin Ney 70/30 U-100 70/30 U-100 70/30 Communi Insulin [...] IN THE EVENING indomethaci indomethaci No indomethac Ney n 50 mg n 50 mg in 50 mg Commu ni capsule capsule capsule ty Take 1 Take 1 Take 1 Hospita capsule capsule capsule l twice a day twice a day twice a Clinics by oral by oral day by route as route as oral route needed. needed. as needed. levothyroxi levothyroxi No levothyrox Ney ne 50 mcg ne 50 mcg ine 50 mcg Communi tablet TAKE tablet TAKE tablet ty 1 TABLET BY 1 TABLET BY TAKE 1 Hospita MOUTH ONCE MOUTH ONCE TABLET BY l DAILY DAILY MOUTH ONCE Clinics DAILY lisinopril lisinopril No lisinopril Ney 10 mg 10 mg 10 mg Communi tablet Take tablet Take tablet ty 1 tablet by 1 tablet by Take 1 Hospita mouth once mouth once tablet by l daily daily mouth once Clinics daily lisinopril lisinopril No lisinopril Ney 20 20 20 Communi mg-hydrochl mg-hydrochl mg-hydroch ty orothiazide orothiazide [facility] 25 mg 25 mg de 25 mg l tablet TAKE tablet TAKE tablet Clinics 1 TABLET BY 1 TABLET BY TAKE 1 MOUTH ONCE MOUTH ONCE TABLET BY DAILY DAILY MOUTH ONCE DAILY meclizine meclizine No meclizine Ney 25 mg 25 mg 25 mg Communi tablet TAKE tablet TAKE tablet ty 1 TABLET BY 1 TABLET BY TAKE 1 Hospita MOUTH THREE MOUTH THREE TABLET BY l TIMES DAILY TIMES DAILY MOUTH Clinics NEEDED NEEDED THREE TIMES DAILY NEEDED oxybutynin oxybutynin No 1 BID oxybutynin Ney chloride ER chloride ER chloride Communi 10 mg 10 mg ER 10 mg ty tablet,exte tablet,exte tablet,ext Hospita nded nded ended l release 24 release 24 release 24 Clinics hr Take 1 hr Take 1 hr Take 1 tablet tablet tablet twice a day twice a day twice a by oral by oral day by route. route. oral route. pantoprazol pantoprazol No pantoprazo Ney e 40 mg e 40 mg le [...] DAILY WITH PEN PreserVisio PreserVisio No PreserVisi Ney n AREDS n AREDS on AREDS Commu ni ty Hospita l Clinics relion pen relion pen No relion pen Ney needles 32g needles 32g needles Communi x 4mm 32g x x 4mm 32g x 32g x 4mm ty 4 mm misc 4 mm misc 32g x 4 mm [facility]ospita misc l Clinics Super B Super B No Super B Ney Complex 100 Complex 100 Complex Communi tablet Take tablet Take 100 tablet ty by oral by oral Take by Hospit a route. route. oral l route. Clinics triazolam triazolam No triazolam Ney 0.25 mg 0.25 mg 0.25 mg Commun i tablet TAKE tablet TAKE tablet ty ONE TABLET ONE TABLET TAKE ONE Hospita BY MOUTH 1 BY MOUTH 1 TABLET BY l HOUR BEFORE HOUR BEFORE MOUTH 1 Clinics APPOINTMENT APPOINTMENT HOUR . BRING . BRING BEFORE REMAINING REMAINING APPOINTMEN TABLETS TO TABLETS TO T. BRING APPOINTMENT APPOINTMENT REMAINING WITH YOU. WITH YOU. TABLETS TO APPOINTMEN T WITH YOU. venlafaxine venlafaxine No venlafaxin Ney ER 75 mg ER 75 mg e ER 75 mg C om[facility]i capsule,ext capsule,ext capsule,ex ty ended ended tended Hospita release 24 release 24 release 24 l hr TAKE 3 hr TAKE 3 hr TAKE 3 Clinics CAPSULES BY CAPSULES BY CAPSULES MOUTH AT MOUTH AT BY MOUTH BEDTIME BEDTIME AT BEDTIME Alive Alive No Alive Ney Immune Immune Immune [facility] ty [facility] l Clinics atorvastati atorvastati No atorvastat Ney n 40 mg n 40 mg in 40 mg Commu ni tablet TAKE tablet TAKE tablet ty 1 TABLET BY 1 TABLET BY TAKE 1 [facility]ospita MOUTH ONCE MOUTH ONCE TABLET BY l DAILY FOR DAILY FOR MOUTH ONCE Clinics 90 DAYS 90 DAYS DAILY FOR 90 DAYS [facility] estradiol estradiol No estradiol Ney 0.01% (0.1 0.01% (0.1 0.01% (0.1 Communi mg/gram) mg/gram) mg/gram) ty vaginal vaginal vaginal Hospit a cream cream cream l INSERT INSERT INSERT Clinics 0.5GM WITH 0.5GM WITH 0.5GM WITH APPLICATOR APPLICATOR APPLICATOR VAGINALLY VAGINALLY VAGINALLY DIRECTED DIRECTED THREE TIMES THREE TIMES DIRECTED A WEEK A WEEK THREE TIMES A WEEK FreeStyle FreeStyle No FreeStyle Ney Abel 14 Abel 14 Abel 14 Com sandro Day Angela Day Angela Day Angela ty USE USE USE Hospita DIRECTED DIRECTED DIRECTED l Clinics FreeStyle FreeStyle No FreeStyle Ney Abel 14 Abel 14 Abel 14 Com sandro Day Sensor Day Sensor Day Sensor ty kit USE kit USE kit USE Hospita DIRECTED DIRECTED DIRECTED l Clinics FreeStyle FreeStyle No FreeStyle Ney Lite Strips Lite Strips Lite C ommuni USE 1 STRIP USE 1 STRIP Strips USE ty TO CHECK TO CHECK 1 STRIP TO H [facility]spita GLUCOSE GLUCOSE CHECK l TWICE DAILY TWICE DAILY GLUCOSE Clinics TWICE DAILY Humulin Humulin No Humulin Ney 70/30 U-100 70/30 U-100 70/30 Communi Insulin Insulin U-100 ty KwikPen 100 KwikPen 100 Insulin Hospita unit/mL unit/mL KwikPen l subcutaneou subcutaneou 100 C linics s INJECT 27 s INJECT 27 unit/mL UNITS UNITS subcutaneo SUBCUTANEOU SUBCUTANEOU us INJECT SLY IN THE SLY IN THE 27 UNITS MORNING AND MORNING AND SUBCUTANEO 25 UNITS IN 25 UNITS IN USLY IN THE EVENING THE EVENING THE MORNING AND 25 UNITS IN THE EVENING indomethaci indomethaci No indomethac Ney n 50 mg n 50 mg in 50 mg Commu ni capsule capsule capsule ty Take 1 Take 1 Take 1 Hospita capsule capsule capsule l twice a day twice a day twice a Clinics by oral by oral day by route as route as oral route needed. needed. as needed. levothyroxi levothyroxi No levothyrox Ney ne 50 mcg ne 50 mcg ine 50 mcg Communi tablet TAKE tablet TAKE tablet ty 1 TABLET BY 1 TABLET BY TAKE 1 Hospita MOUTH ONCE MOUTH ONCE TABLET BY l DAILY DAILY MOUTH ONCE Clinics DAILY lisinopril lisinopril No lisinopril Ney 10 mg 10 mg 10 mg Communi tablet Take tablet Take tablet ty 1 tablet by 1 tablet by Take 1 Hospita mouth once mouth once tablet by l daily daily mouth once Clinics daily lisinopril lisinopril No lisinopril Ney 20 20 20 Communi mg-hydrochl mg-hydrochl mg-hydroch ty orothiazide orothiazide [facility] 25 mg 25 mg de 25 mg l tablet TAKE tablet TAKE tablet Clinics 1 TABLET BY 1 TABLET BY TAKE 1 MOUTH ONCE MOUTH ONCE TABLET BY DAILY DAILY MOUTH ONCE DAILY meclizine meclizine No meclizine Ney 25 mg 25 mg 25 mg Communi tablet TAKE tablet TAKE tablet ty 1 TABLET BY 1 TABLET BY TAKE 1 Hospita MOUTH THREE MOUTH THREE TABLET BY l TIMES DAILY TIMES DAILY MOUTH Clinics NEEDED NEEDED THREE TIMES DAILY NEEDED oxybutynin oxybutynin No oxybutynin Ney chloride ER chloride ER chloride Communi 10 mg 10 mg ER 10 mg ty tablet,exte tablet,exte tablet,ext Hospita nded nded ended l release 24 release 24 release 24 Clinics hr TAKE 1 hr TAKE 1 hr TAKE 1 TABLET BY TABLET BY TABLET BY MOUTH DAILY MOUTH DAILY MOUTH DAILY pantoprazol pantoprazol No pantoprazo Ney e 40 mg e 40 mg le [...] DAILY WITH PEN PreserVisio PreserVisio No PreserVisi Ney n AREDS n AREDS on AREDS Commu ni ty Hospita l Clinics relion pen relion pen No relion pen Ney needles 32g needles 32g needles Communi x 4mm 32g x x 4mm 32g x 32g x 4mm ty 4 mm misc 4 mm misc 32g x 4 mm [facility]ospita misc l Clinics Super B Super B No Super B Ney Complex 100 Complex 100 Complex Communi tablet Take tablet Take 100 tablet ty by oral by oral Take by Hospit a route. route. oral l route. Clinics triazolam triazolam No triazolam Ney 0.25 mg 0.25 mg 0.25 mg Commun i tablet TAKE tablet TAKE tablet ty ONE TABLET ONE TABLET TAKE ONE [facility]ospita BY MOUTH 1 BY MOUTH 1 TABLET BY l HOUR BEFORE HOUR BEFORE MOUTH 1 Clinics APPOINTMENT APPOINTMENT HOUR . BRING . BRING BEFORE REMAINING REMAINING APPOINTMEN TABLETS TO TABLETS TO T. BRING APPOINTMENT APPOINTMENT REMAINING WITH YOU. WITH YOU. TABLETS TO APPOINTMEN T WITH YOU. venlafaxine venlafaxine No venlafaxin Ney ER 75 mg ER 75 mg e ER 75 mg C om[facility]i capsule,ext capsule,ext capsule,ex ty ended ended tended Hospita release 24 release 24 release 24 l hr TAKE 3 hr TAKE 3 hr TAKE 3 Clinics CAPSULES BY CAPSULES BY CAPSULES MOUTH AT MOUTH AT BY MOUTH BEDTIME BEDTIME AT BEDTIME atorvastati atorvastati No atorvastat Ney n 20 mg n 20 mg in 20 mg Commu ni tablet TAKE tablet TAKE tablet ty 1 TABLET BY 1 TABLET BY TAKE 1 [facility]ospita MOUTH ONCE MOUTH ONCE TABLET BY l DAILY DAILY MOUTH ONCE Clinics DAILY Euthyrox 50 Euthyrox 50 No Euthyrox Ney mcg tablet mcg tablet 50 mcg C om[facility]i TAKE 1 TAKE 1 tablet ty TABLET BY TABLET BY TAKE 1 [facility] MOUTH ONCE MOUTH ONCE TABLET BY l DAILY DAILY MOUTH ONCE Clinics DAILY FreeStyle FreeStyle No FreeStyle Ney Lite Strips Lite Strips Lite C ommuni USE 1 STRIP USE 1 STRIP Strips USE ty TO CHECK TO CHECK 1 STRIP TO H ospita GLUCOSE GLUCOSE CHECK l TWICE DAILY TWICE DAILY GLUCOSE Clinics TWICE DAILY Humulin Humulin No Humulin Ney 70/30 U-100 70/30 U-100 70/30 Communi Insulin [...] IN THE EVENING lisinopril lisinopril No lisinopril Ney 10 mg 10 mg 10 mg Communi tablet TAKE tablet TAKE tablet ty 1 TABLET BY 1 TABLET BY TAKE 1 [facility]ospita MOUTH ONCE MOUTH ONCE TABLET BY l DAILY DAILY MOUTH ONCE Clinics DAILY lisinopril lisinopril No lisinopril Ney 20 20 20 Communi mg-hydrochl mg-hydrochl mg-hydroch ty orothiazide orothiazide [facility] 25 mg 25 mg de 25 mg l tablet Take tablet Take tablet Clinics 1 tablet by 1 tablet by Take 1 mouth once mouth once tablet by daily daily mouth once daily meclizine meclizine No 1 TID meclizine Ney 25 mg 25 mg 25 mg Communi tablet Take tablet Take tablet ty 1 tablet 3 1 tablet 3 Take 1 H [facility]spita times a day times a day tablet 3 l by oral by oral times a Clinic s route as route as day by needed. needed. oral route as needed. metformin metformin No metformin Ney 1,000 mg 1,000 mg 1,000 mg Com sandro tablet TAKE tablet TAKE tablet ty 1 TABLET BY 1 TABLET BY TAKE 1 Hospita MOUTH TWICE MOUTH TWICE TABLET BY l DAILY DAILY MOUTH Clinics TWICE DAILY Myrbetriq Myrbetriq No 1 Q1D Myrbetriq Ney 25 mg 25 mg 25 mg Communi tablet,exte tablet,exte tablet,ext ty nded nded ended Hospita release release release l Take 1 Take 1 Take 1 Clinics tablet tablet tablet every day every day every day by oral by oral by oral route. route. route. ondansetron ondansetron No 1 BID ondansetro Ney 8 mg 8 mg n 8 mg Communi disintegrat disintegrat disintegra ty ing tablet ing tablet ting [facility] Place 1 Place 1 tablet l tablet tablet Place 1 Clinics twice a day twice a day tablet by by twice a translingua translingua day by l route as l route as translingu needed. needed. al route as needed. oxybutynin oxybutynin No oxybutynin Ney chloride ER chloride ER chloride Communi 5 mg 5 mg ER 5 mg ty tablet,exte tablet,exte tablet,ext Hospita nded nded ended l release 24 release 24 release 24 Clinics hr TAKE 1 hr TAKE 1 hr TAKE 1 TABLET BY TABLET BY TABLET BY MOUTH ONCE MOUTH ONCE MOUTH ONCE DAILY DAILY DAILY pantoprazol pantoprazol No pantoprazo Ney e 40 mg e 40 mg le 40 mg Commu ni tablet,ac tablet,ac tablet,del ty yed release yed release ayed [facility]spita TAKE 1 TAKE 1 release l TABLET BY TABLET BY TAKE 1 Cli nics MOUTH ONCE MOUTH ONCE TABLET BY DAILY DAILY MOUTH ONCE DAILY venlafaxine venlafaxine No venlafaxin Ney ER 75 mg ER 75 mg e ER 75 mg C ommuni capsule,ext capsule,ext capsule,ex ty ended ended tended Hospita release 24 release 24 release 24 l hr TAKE 3 hr TAKE 3 hr TAKE 3 Clinics CAPSULES BY CAPSULES BY CAPSULES MOUTH AT MOUTH AT BY MOUTH BEDTIME BEDTIME AT BEDTIME atorvastati atorvastati No atorvastat Ney n 20 mg n 20 mg in 20 mg Commu ni tablet TAKE tablet TAKE tablet ty 1 TABLET BY 1 TABLET BY TAKE 1 [facility]ospita MOUTH ONCE MOUTH ONCE TABLET BY l DAILY DAILY MOUTH ONCE Clinics DAILY Euthyrox 50 Euthyrox 50 No Euthyrox Ney mcg tablet mcg tablet 50 mcg C om[facility]i TAKE 1 TAKE 1 tablet ty TABLET BY TABLET BY TAKE 1 [facility] MOUTH ONCE MOUTH ONCE TABLET BY l DAILY DAILY MOUTH ONCE Clinics DAILY FreeStyle FreeStyle No FreeStyle Ney Lite Strips Lite Strips Lite C ommuni USE 1 STRIP USE 1 STRIP Strips USE ty TO CHECK TO CHECK 1 STRIP TO H ospita GLUCOSE GLUCOSE CHECK l TWICE DAILY TWICE DAILY GLUCOSE Clinics TWICE DAILY Humulin Humulin No Humulin Ney 70/30 U-100 70/30 U-100 70/30 Communi Insulin [...] IN THE EVENING lisinopril lisinopril No lisinopril Ney 10 mg 10 mg 10 mg Communi tablet TAKE tablet TAKE tablet ty 1 TABLET BY 1 TABLET BY TAKE 1 Hospita MOUTH ONCE MOUTH ONCE TABLET BY l DAILY DAILY MOUTH ONCE Clinics DAILY lisinopril lisinopril No lisinopril Ney 20 20 20 Communi mg-hydrochl mg-hydrochl mg-hydroch ty orothiazide orothiazide [facility] 25 mg 25 mg de 25 mg l tablet Take tablet Take tablet Clinics 1 tablet by 1 tablet by Take 1 mouth once mouth once tablet by daily daily mouth once daily meclizine meclizine No meclizine Ney 25 mg 25 mg 25 mg Communi tablet TAKE tablet TAKE tablet ty 1 TABLET BY 1 TABLET BY TAKE 1 Hospita MOUTH THREE MOUTH THREE TABLET BY l TIMES DAILY TIMES DAILY MOUTH Clinics NEEDED NEEDED THREE TIMES DAILY NEEDED metformin metformin No metformin Ney 1,000 mg 1,000 mg 1,000 mg Com sandro tablet TAKE tablet TAKE tablet ty 1 TABLET BY 1 TABLET BY TAKE 1 Hospita MOUTH TWICE MOUTH TWICE TABLET BY l DAILY DAILY MOUTH Clinics TWICE DAILY ondansetron ondansetron No ondansetro Ney 8 mg 8 mg n 8 mg Communi disintegrat disintegrat disintegra ty ing tablet ing tablet ting Hos elvie DISSOLVE 1 DISSOLVE 1 tablet l TABLET IN TABLET IN DISSOLVE 1 Clinics MOUTH TWICE MOUTH TWICE TABLET IN DAILY DAILY MOUTH NEEDED NEEDED TWICE DAILY NEEDED oxybutynin oxybutynin No oxybutynin Ney chloride ER chloride ER chloride Communi 5 mg 5 mg ER 5 mg ty tablet,exte tablet,exte tablet,ext Hospita nded nded ended l release 24 release 24 release 24 Clinics hr TAKE 1 hr TAKE 1 hr TAKE 1 TABLET BY TABLET BY TABLET BY MOUTH ONCE MOUTH ONCE MOUTH ONCE DAILY DAILY DAILY pantoprazol pantoprazol No pantoprazo Ney e 40 mg e 40 mg le 40 mg Commu ni tablet,ac tablet,ac tablet,del ty yed release yed release ayed H ospita TAKE 1 TAKE 1 release l TABLET BY TABLET BY TAKE 1 Cli nics MOUTH ONCE MOUTH ONCE TABLET BY DAILY DAILY MOUTH ONCE DAILY venlafaxine venlafaxine No venlafaxin Ney ER 75 mg ER 75 mg e ER 75 mg C ommuni capsule,ext capsule,ext capsule,ex ty ended ended tended Hospita release 24 release 24 release 24 l hr TAKE 3 hr TAKE 3 hr TAKE 3 Clinics CAPSULES BY CAPSULES BY CAPSULES MOUTH AT MOUTH AT BY MOUTH BEDTIME BEDTIME AT BEDTIME Zithromax Zithromax No Zithromax Ney Z-Lamin 250 Z-Lamin 250 Z-Lamin 250 Communi [...] Time Observation Value Comments Source BP Diastolic 2023-01-26 00:00:00 58 mm[Hg] [facility] Height 2023-01-26 00:00:00 61 [in_i] [facility] BMI (Body Mass 2023-01-26 00:00:00 34 kg/m2 [facility] BP Systolic 2023-01-26 00:00:00 130 mm[Hg] [facility] s Body Weight 2023-01-26 00:00:00 2883.2 [oz_av] [facility] s BP Diastolic 2022-12-27 00:00:00 60 mm[Hg] [facility] Height 2022-12-27 00:00:00 61 [in_i] [facility] s BMI (Body Mass 2022-12-27 00:00:00 33.7 kg/m2 [facility] BP Systolic 2022-12-27 00:00:00 122 mm[Hg] [facility] Body Weight 2022-12-27 00:00:00 2854.4 [oz_av] [facility] s BP Diastolic 2022-09-22 00:00:00 62 mm[Hg] [facility] Height 2022-09-22 00:00:00 61 [in_i] [facility] BMI (Body Mass 2022-09-22 00:00:00 33.8 kg/m2 [facility] s BP Systolic 2022-09-22 00:00:00 136 mm[Hg] [facility] Body Weight 2022-09-22 00:00:00 2860.8 [oz_av] [facility] s BP Diastolic 2022-06-20 00:00:00 70 mm[Hg] [facility] s Height 2022-06-20 00:00:00 61 [in_i] [facility] s BMI (Body Mass 2022-06-20 00:00:00 33.8 kg/m2 [facility]) [facility] BP Systolic 2022-06-20 00:00:00 120 mm[Hg] [facility] s Body Weight 2022-06-20 00:00:00 2864 [oz_av] [facility] BP Diastolic 2022-03-16 00:00:00 80 mm[Hg] [facility] Height 2022-03-16 00:00:00 61 [in_i] [facility] s BMI (Body Mass 2022-03-16 00:00:00 34 kg/m2 [facility] s BP Systolic 2022-03-16 00:00:00 121 mm[Hg] [facility] Body Weight 2022-03-16 00:00:00 2880 [oz_av] [facility] s BP Diastolic 2022-03-09 00:00:00 62 mm[Hg] [facility] Height 2022-03-09 00:00:00 61 [in_i] [facility] s BMI (Body Mass 2022-03-09 00:00:00 33.3 kg/m2 [facility] s BP Systolic 2022-03-09 00:00:00 140 mm[Hg] [facility] s Body Weight 2022-03-09 00:00:00 2816 [oz_av] [facility] Height 2021-12-20 00:00:00 61 [in_i] [facility] s BMI (Body Mass 2021-12-20 00:00:00 31.2 kg/m2 [facility]) [facility] Body Weight 2021-12-20 00:00:00 2640 [oz_av] [facility] s BP Diastolic 2021-09-16 00:00:00 72 mm[Hg] [facility] s Height 2021-09-16 00:00:00 61 [in_i] [facility] s BMI (Body Mass 2021-09-16 00:00:00 34.2 kg/m2 [facility]) [facility] BP Systolic 2021-09-16 00:00:00 140 mm[Hg] [facility] s Body Weight 2021-09-16 00:00:00 2892.8 [oz_av] [facility] s BP Diastolic 2021-01-04 00:00:00 66 mm[Hg] [facility] Height 2021-01-04 00:00:00 61 [in_i] [facility] s BMI (Body Mass 2021-01-04 00:00:00 34.4 kg/m2 [facility]) [facility] BP Systolic 2021-01-04 00:00:00 140 mm[Hg] [facility] s Body Weight 2021-01-04 00:00:00 2912 [oz_av] [facility] Height 2020-12-28 00:00:00 61 [in_i] [facility] s Body height 2021-12-31 14:45:00 152.4 cm [facility] Body weight 2021-12-31 14:45:00 85.276 kg [facility] BMI 2021-12-31 14:45:00 36.72 kg/m2 [facility] Oxygen saturation in 2021-11-18 18:00:00 97 /min [facility] Arterial blood by Pulse oximetry Systolic blood 2021-11-18 17:17:44 109 mm[Hg] [facility] pressure Diastolic blood 2021-11-18 17:17:44 49 mm[Hg] [facility] pressure Heart rate 2021-11-18 17:17:44 92 /min [facility] Body temperature 2021-11-18 17:17:44 36.28 Miley [facility] Respiratory rate 2021-11-18 17:17:44 17 /min [facility] Procedures Procedure Date / Time Performing Clinician Source Performed XR, hip, unilateral, 2 or 2022-06-20 00:00:00 [facility] 3 view [facility] XR, foot, 3 or more view 2022-03-09 00:00:00 [facility] XR PELVIS 1 OR 2 VW 2021-12-31 14:52:07 José Luis Dugan [facility] XR PELVIS 1 OR 2 VW 2021-12-03 15:40:13 José Luis Dugan [facility] URINE CULTURE 2021-11-18 22:38:00 [facility] miketal URINALYSIS SCREEN AND 2021-11-18 22:38:00 [facility] MICROSCOPY, WITH REFLEX TO CULTURE POC GLUCOSE 2021-11-18 17:18:00 José Luis Dugan spital POC GLUCOSE 2021-11-18 13:52:00 José Luis Dugan spital HC COMPLETE BLD COUNT 2021-11-18 11:20:00 [facility] W/AUTO DIFF COMPREHENSIVE METABOLIC 2021-11-18 11:20:00 [facility] PANEL ESTIMATED GFR 2021-11-18 11:20:00 [facility] spital POC GLUCOSE 2021-11-18 02:58:00 José Luis Dugan spital COVID-19 QUALITATIVE 2021-11-18 00:42:00 Cornelius Alberts [facility] RT-PCR POC GLUCOSE 2021-11-17 23:07:00 Dugan, José Luis Vaz Ho spital POC GLUCOSE 2021-11-17 17:41:00 DuganJosé Luis spital POC GLUCOSE 2021-11-17 14:14:00 DuganJosé Luis vela spital HEMOGLOBIN & HEMATOCRIT 2021-11-17 12:19:00 [facility] POC GLUCOSE 2021-11-17 03:14:00 DuganJosé Luis Ho spital POC GLUCOSE 2021-11-16 22:56:00 Dugan, José Luis Vaz [facility] spital XR PELVIS 1 OR 2 2021-11-16 22:42:05 [facility] POC GLUCOSE 2021-11-16 22:22:00 DuganJosé Luis Ho spital POC GLUCOSE 2021-11-16 21:37:00 DuganJosé Luis spital XR PELVIS 1 OR 2 VW 2021-11-16 20:51:00 José Luis Dugan [facility] TRANSFUSE RED BLOOD CELLS 2021-11-16 19:56:00 Claus Costa [facility] AEROBIC CULTURE 2021-11-16 19:17:00 DuganJosé Luis vela spital GRAM STAIN 2021-11-16 19:17:00 DuganJosé Luis spital AEROBIC CULTURE 2021-11-16 19:10:00 DuganJosé Luis Ho spital GRAM STAIN 2021-11-16 19:10:00 DuganJosé Luis Ho spital AEROBIC CULTURE 2021-11-16 19:09:00 DuganJosé Luis Ho spital GRAM STAIN 2021-11-16 19:09:00 DuganJosé Luis Ho spital URINE CULTURE 2021-11-16 18:28:00 DuganJosé Luis vela spital URINALYSIS SCREEN AND 2021-11-16 18:28:00 DuganJosé Luis vela [facility] MICROSCOPY, WITH REFLEX TO CULTURE [place] AN ELECTIVE 2021-11-16 18:17:00 Claus Costa spital ENDOTRACHEAL AIRWAY ANAEROBIC CULTURE 2021-11-16 18:17:00 José Luis Dugan [facility] ANAEROBIC CULTURE 2021-11-16 18:10:00 José Luis Dugan [facility] ANAEROBIC CULTURE 2021-11-16 18:09:00 José Luis Dugan [facility] ARTHROPLASTY, HIP, TOTAL 2021-11-16 18:00:00 José Luis Dugan [facility] HC NERVE BLOCK QUADRATUS 2021-11-16 17:07:04 [facility] POC GLUCOSE 2021-11-16 13:55:00 [facility] TYPE AND SCREEN 2021-11-16 13:45:00 [facility] COMPLETE BLD COUNT 2021-11-16 13:45:00 José Luis Dugan [facility] W/AUTO DIFF BASIC METABOLIC PANEL 2021-11-16 13:45:00 José Luis Dugan [facility] PARTIAL THROMBOPLASTIN 2021-11-16 13:45:00 [facility] TIME (PTT) PROTHROMBIN TIME WITH INR 2021-11-16 13:45:[address] [facility] ESTIMATED GFR 2021-11-16 13:45:00 [facility] PREPARE RBC 2021-11-16 12:45:00 [facility] Total Replacement of Hip 2021-11-16 00:00:00 [facility] POC GLUCOSE 2021-11-05 17:28:00 [facility] POC GLUCOSE 2021-11-05 14:01:00 [facility] BASIC METABOLIC PANEL 2021-11-05 11:33:00 Joaquin Arias [facility] MAGNESIUM LEVEL 2021-11-05 11:33:00 Joaquin Arias [facility] PHOSPHORUS LEVEL 2021-11-05 11:33:00 Joaquin Arias [facility] CBC HEMOGRAM 2021-11-05 11:33:00 [facility]as [facility] ESTIMATED GFR 2021-11-05 11:33:00 [facility] POC [facility]SE 2021-11-05 11:09:00 José Luis Dugan spital POC GLUCOSE 2021-11-05 07:11:00 José Luis Dugan spital POC GLUCOSE 2021-11-05 02:56:00 José Luis Dugan spital POC GLUCOSE 2021-11-04 22:31:00 José Luis Dugan spital POC GLUCOSE 2021-11-04 18:02:00 José Luis Dugan spital POC GLUCOSE 2021-11-04 13:21:00 [facility] 2021-11-04 12:23:00 [facility]OLIC PANEL 2021-11-04 12:18:00 [facility] L[facility] 2021-11-04 12:18:00 [facility] PHOSPHORUS LEVEL 2021-11-04 12:18:00 Joaquin Arias [facility] HC COMPLETE BLD COUNT 2021-11-04 12:18:00 Cornelius Alberts [facility] W/AUTO DIFF ESTIMATED GFR 2021-11-04 12:18:00 Joaquin Arias [facility] SMEAR REVIEW 2021-11-04 12:18:00 Cornelius Alberts [facility] POC GLUCOSE 2021-11-04 02:56:[address] [facility] POC GLUCOSE 2021-11-04 00:12:00 [facility] 2021-11-03 20:17:36 [facility] 2021-11-03 17:16:00 [facility] L[facility] 2021-11-03 12:13:00 [facility] PHOSPHORUS LEVEL 2021-11-03 12:13:00 [facility] COMPREHENSIVE METABOLIC 2021-11-03 12:13:00 [facility] PANEL HC COMPLETE BLD COUNT 2021-11-03 12:13:00 [facility] W/AUTO DIFF ESTIMATED GFR 2021-11-03 12:13:00 JusticeLucas Ho spital POC GLUCOSE 2021-11-03 11:26:00 José Luis Dugan Ho spital POC GLUCOSE 2021-11-03 07:13:00 José Luis Dugan Ho spital POC GLUCOSE 2021-11-03 03:09:00 José Luis Dugan Ho spital POC GLUCOSE 2021-11-03 02:23:00 José Luis Dugan Ho spital POC GLUCOSE 2021-11-02 22:48:00 José Luis Dugan Ho spital POC GLUCOSE 2021-11-02 18:34:00 José Luis Dugan Ho spital POC GLUCOSE 2021-11-02 16:00:00 José Luis Dugan Ho spital POC GLUCOSE 2021-11-02 14:10:00 José Luis Dugan Ho spital POC GLUCOSE 2021-11-02 10:40:00 José Luis Dugan Ho spital XR CHEST 1 VW PORTABLE 2021-11-02 10:36:38 Kaveh Yao [facility] METABOLIC 2021-11-02 09:20:00 José Luis Dugan [facility] PANEL MAGNESIUM LEVEL 2021-11-02 09:20:00 José Luis Dugan Ho spital PHOSPHORUS LEVEL 2021-11-02 09:20:00 José Luis Dugan ospital PROTHROMBIN TIME WITH INR 2021-11-02 09:20:00 José Luis Dugan [facility] CBC WITH PLATELET AND 2021-11-02 09:20:00 José Luis Dugan [facility] DIFFERENTIAL ESTIMATED GFR 2021-11-02 09:20:00 José Luis Dugan spital MANUAL DIFFERENTIAL 2021-11-02 09:20:00 José Luis Dugan [facility] POC GLUCOSE 2021-11-02 06:53:00 José Luis Dugan spital POC GLUCOSE 2021-11-02 02:51:00 [facility] ANTI-SPIKE IGG 2021-11-02 00:26:00 Kaveh Yao [facility] ANTIBODY TITER HEMOGLOBIN A1C 2021-11-02 00:26:00 Kaveh Yao [facility] COVID-19 SEROLOGY PATIENT 2021-11-02 00:26:00 Kaveh Yao [facility] SURVEILLANCE POC GLUCOSE 2021-11-01 22:21:[address] [facility] SURGICAL PATHOLOGY 2021-11-01 22:12:00 José Luis Dugan [facility] REQUEST XR PELVIS 1 OR 2 VW 2021-11-01 19:16:56 Rebecca Flores [facility] XR CHEST 1 VW PORTABLE 2021-11-01 19:12:08 [facility] ABDOMEN 1 VW 2021-11-01 19:11:12 [place] Kaveh Nani [facility] CBC WITH PLATELET AND 2021-11-01 18:37:00 José Luis Dugan [facility] DIFFERENTIAL COMPREHENSIVE METABOLIC 2021-11-01 18:37:00 José Luis Dugan [facility] PANEL INHIBIT PT, PTT MIX 2021-11-01 18:37:00 José Luis Dugan [facility] ESTIMATED GFR 2021-11-01 18:37:00 [facility] ART[facility]LOOD GAS 2021-11-01 18:37:00 Kaveh Yao Nani [facility] MANUAL DIFFERENTIAL 2021-11-01 18:37:00 José Luis Dugan [facility] ECG 12-LEAD 2021-11-01 18:33:14 Najma Kaveh Nani [facility] POC GLUCOSE 2021-11-01 18:01:00 [facility] 2021-11-01 17:40:00 [facility] AND 2021-11-01 17:40:00 José Luis Dugan t Hospital MICROSCOPY, WITH REFLEX TO CULTURE ARTERIAL BLOOD GAS, 2021-11-01 16:55:00 DuganJosé Luis veal [facility] CORRECTED SODIUM LEVEL, SYRINGE 2021-11-01 16:55:00 Dugan, José Luis Nani [facility] POTASSIUM, SYRINGE 2021-11-01 16:55:00 Dugan, José Luis Hayes [facility] HEMOGLOBIN, SYRINGE 2021-11-01 16:55:00 DuganJosé Luis [facility] GLUCOSE LEVEL, SYRINGE 2021-11-01 16:55:00 [facility]an, [facility] MAGNESIUM LEVEL 2021-11-01 16:55:00 Dugan, José Luis Nagel spital [place] AN ELECTIVE 2021-11-01 15:32:59 [facility] ARTERIAL BLOOD GAS, 2021-11-01 15:20:00 DuganJosé Luis vela [facility] CORRECTED SODIUM LEVEL, SYRINGE 2021-11-01 15:20:00 DuganJosé Luis vela [facility] POTASSIUM, SYRINGE 2021-11-01 15:20:00 Dugan, [facility] HEMOGLOBIN, SYRINGE 2021-11-01 15:20:00 Dugan, [facility] IONIZED CALCIUM, ARTERIAL 2021-11-01 15:20:00 DuganJosé Luis [facility] GLUCOSE LEVEL, SYRINGE 2021-11-01 15:20:00 Dugan, José Luis Nani [facility] MAGNESIUM LEVEL 2021-11-01 15:20:00 DuganJosé Luis vela spital CBC HEMOGRAM 2021-11-01 15:17:00 DuganJosé Luis vela spital ARTHROPLASTY, HIP, TOTAL 2021-11-01 13:45:00 José Luis Dugan [facility] HC NERVE BLOCK QUADRATUS 2021-11-01 13:33:31 Tu, [facility] LUMBORUM ANESTHESIA SPINAL BLOCK 2021-11-01 13:18:00 Tu, [facility] TYPE AND SCREEN 2021-11-01 13:15:00 José Luis Dugan spital POC GLUCOSE 2021-11-01 13:15:00 [facility] QUALITATIVE 2021-10-27 17:50:00 Jannie Darby [facility] RT-PCR TYPE AND SCREEN 2021-10-12 17:50:[address] [facility] CT LOWER EXTREMITY 2021-08-11 18:42:41 DuganJosé Luis vela [facility] EXTERNAL STUDY US, duplex, carotid 2021-01-04 00:00:00 [facility] CT, head, w/o contrast 2021-01-04 00:00:00 [facility] XR, hip, unilateral, 2 or 2021-01-04 00:00:00 [facility] 3 view [facility] Operative Procedure on 2019-03-11 00:00:00 [facility] Spinal Structure [facility] s Cataract Surgery [facility] Plan of Care Planned Activity Planned Date Details Comments Source Future Scheduled Test 2023-01-04 COVID-19 VACCINE (#1) [facility] 11:25:07 [code = COVID-19 VACCINE (#1)] Future Scheduled Test 2023-01-04 DIABETES: RETINAL EYE [facility] 11:25:07 EXAM [code = DIABETES: RETINAL EYE EXAM] Future Scheduled Test 2023-01-04 DIABETIC FOOT EXAM [facility] 11:25:07 [code = DIABETIC FOOT EXAM] Future Scheduled Test 2023-01-04 URINE MICROALBUMIN [facility] 11:25:07 [code = URINE MICROALBUMIN] Future Scheduled Test 2023-01-04 Hepatitis C screening [facility] 11:25:07 (procedure) [code = 714238401] Future Scheduled Test 2023-01-04 BREAST CANCER [facility] 11:25:07 SCREENING [code = BREAST CANCER SCREENING] Future Scheduled Test 2023-01-04 COLONOSCOPY SCREENING [facility] 11:25:07 [code = COLONOSCOPY SCREENING] Future Scheduled Test 2023-01-04 SHINGLES VACCINES (1 [facility] 11:25:07 of 2) [code = SHINGLES VACCINES (1 of 2)] Future Scheduled Test 2023-01-04 65+ PNEUMOCOCCAL Me [facility] 11:25:07 VACCINE (2 - PPSV23 if available, else PCV20) [code = 65+ PNEUMOCOCCAL VACCINE (2 - PPSV23 if available, else PCV20)] Future Scheduled Test 2023-01-04 INFLUENZA VACCINE [facility] 11:25:07 [code = INFLUENZA VACCINE] Diagnostic Test 2022-12-27 HbA1c (hemoglobin [facility] Pending 00:00:00 A1c), blood [code = [facility] HbA1c (hemoglobin A1c), blood] Future Scheduled Test 2022-07-13 HEPATITIS B VACCINES [facility] 17:38:36 (1 of 3 - 3-dose series) [code = HEPATITIS B VACCINES (1 of 3 - 3-dose series)] Future Scheduled Test 2022-07-13 COVID-19 VACCINE (#1) [facility] 17:38:36 [code = COVID-19 VACCINE (#1)] Future Scheduled Test 2022-07-13 DIABETES: RETINAL EYE [facility] 17:38:36 EXAM [code = DIABETES: RETINAL EYE EXAM] Future Scheduled Test 2022-07-13 DIABETIC FOOT EXAM [facility] 17:38:36 [code = DIABETIC FOOT EXAM] Future Scheduled Test 2022-07-13 URINE MICROALBUMIN [facility] 17:38:36 [code = URINE MICROALBUMIN] Future Scheduled Test 2022-07-13 Hepatitis C screening [facility] 17:38:36 (procedure) [code = [id number]] Future Scheduled Test 2022-07-13 BREAST CANCER [facility] 17:38:36 SCREENING [code = BREAST CANCER SCREENING] Future Scheduled Test 2022-07-13 COLONOSCOPY SCREENING [facility] 17:38:36 [code = COLONOSCOPY SCREENING] Future Scheduled Test 2022-07-13 SHINGLES VACCINES (1 [facility] 17:38:36 of 2) [code = SHINGLES VACCINES (1 of 2)] Future Scheduled Test 2022-07-13 65+ PNEUMOCOCCAL [facility] 17:38:36 VACCINE (2 - PPSV23 if available, else PCV20) [code = 65+ PNEUMOCOCCAL VACCINE (2 - PPSV23 if available, else PCV20)] Future Scheduled Test 2022-07-13 INFLUENZA VACCINE [facility] 17:38:36 [code = INFLUENZA VACCINE] Future Appointment 2023-03-28 Cheyanne Shah, [address] [facility] 00:[facility]:00 Cherelle Coley B; [facility] [address], [place] [address] Encounters Start End Encounter Admission Attending Care Care Encounter Source Date/Time Date/Time Type Type Clinicians Facility Department ID 2023-01-26 2023-01-26 Outpatient BRYAN_Fouzia [facility] [id number] Ney 00:00:00 00:00:00 [address] [facility] 2023-01-26 2023-01-26 Cheyanne Zavaleta [facility] [place] - Ney [id number] Ney 00:00:00 00:00:00 [facility] [address] [facility] [facility] [address] [address] [facility], [address] BRYAN , Ph. 2022-12-27 2022-12-27 Cheyanne Zavaleta [facility] [place] - [place] [id number] Ney 00:00:00 00:00:00 Shilo Shah MD[facility] [address] [facility] [address] [address], HOSPITAL [place], [place] CL[place]IC, [address] BRYAN , Ph. 2022-12-01 2022-12-01 Cheyanne Zavaleta [facility] [place] - [place] [id number] Ney 00:00:00 00:00:00 Shilo Shah MD: [address] [facility] [address], COMM[facility]ITY [address], [facility], [address] BRYAN , Ph. 2022-10-11 2022-10-11 Telephone Martinez, [id number] Methodi 00:00:00 00:00:[id number] [id number] Hospit [id number] .8 2022-09-22 2022-09-22 Cheyanne Zavaleta [facility] [place] - Ney [id number] Ney 00:00:00 00:00:00 Shilo Shah MD: [address] [facility] a [address], COMMUNITY [address], HOSPITAL Clinic [place], [place] CLINIC, [address] BRYAN , Ph. 2022-08-10 2022-08-10 Outpatient KEFFER_A [facility] [id number] Ney 00:00:00 00:00:00 112 [facility] Clinics 2022-08-10 2022-08-10 Outpatient KEFFER_A [facility] 4822-2 0230 Ney 00:00:00 00:00:00 323 [facility] 2022-08-10 2022-08-10 Outpatient SUZI_A [facility] 4822-2 0230 Ney 00:00:00 00:00:00 418 [facility] 2022-06-21 2022-06-21 Travel 1.2.840.1 1.2.019.819 6245 [id number] Methodi 00:00:00 00:00:[address] 3.430.2.7 0.2.7.3.698 Ho spita .3.848438 084.8 l .8 2022-06-21 2022-06-21 Travel 1.2.840.1 1.2.943.600 6166 787809 Methodi 00:00:00 00:00:[address] 3.430.2.7 0.2.7.3.698 Ho spita .3.716133 084.8 l .8 2022-06-20 2022-06-20 Outpatient KEFFER_A [facility] 4822-2 0221 Ney 00:00:00 00:00:00 010 [facility] 2022-06-20 2022-06-20 Cheyanne Zavaleta [facility] [place] - Ney Ney 00:00:00 00:00:00 Shilo Shah MD: [address] [facility] [place] Hospit a [address], COMMUNITY [address], HOSPITAL [place], [place], [address] BRYAN , Ph. 2022-03-24 2022-03-24 Travel 1.2.840.1 1.2.103.029 7842 [id number] Methodi 00:00:00 00:00:[address] 3.430.2.7 0.2.7.3.698 Ho spita .3.389973 084.8 l .8 2022-03-24 2022-03-24 Travel 1.2.840.1 1.2.939.103 9685 [id number] Methodi 00:00:00 00:00:[address] 3.430.2.7 0.2.7.3.698 Ho spita .3.157904 084.8 l .8 2022-03-16 2022-03-16 Outpatient BRYAN_Fouzia [facility] 4822-2 0 Ney 01:27:00 01:27:00 706 [facility] 2022-03-16 2022-03-16 Cheyanne Zavaleta [facility] [place] - Ney Ney 00:00:00 00:00:00 Shilo Shah MD: [address] [facility] Hospit a [address], [facility] l [address], [place], [place], [address] BRYAN , Ph. 2022-03-16 2022-03-16 Outpatient Cheyanne Shah [facility] 40e [id number] 00:00:00 00:00:00 Meghann [id number] [facility] 2022-03-09 2022-03-09 Outpatient JOANNA [facility] 4822-2 0220 Ney 04:08:00 04:08:00 629 [facility] 2022-03-09 2022-03-09 Cheyanne Zavaleta [facility] [place] [id number] 629 Ney 00:00:00 00:00:00 [facility] Shah [facility] [address] [facility] [address] COMM[facility]ITY [address], H[facility], [address] BRYAN , Ph. 2022-03-09 2022-03-09 Outpatient Cheyanne Shah [facility] [id number] 00:00:00 00:00:00 Meghann [id number] 2021-12-31 2021-12-31 Office José Luis Dugan 1.2.840.1 [id number] 21 [id number] Methodi 10:00:00 10:09:49 Visit A. 20961.1.[address] 3.430.2.7 Hospit a .3.875076 l .8 2021-12-31 2021-12-31 Outpatient JOSÉ LUIS DUGAN [facility] 842 [id number] [place] 00:00:00 00:00:[address] 2021-12-31 2021-12-31 Travel 1.2.840.1 1.2.459.901 4973 577350 Methodi 00:00:00 00:00:[address] 3.430.2.7 0.2.7.3.698 Ho spita .3.992526 084.8 l .8 2021-12-20 2021-12-20 Outpatient JOANNA [facility] 4822-2 0220 Ney 04:35:00 04:35:00 411 [facility] i [facility] Hospita l [facility] 2021-12-20 2021-12-20 Cheyanne Zavaleta [facility] [place] - Ney 411 Ney 00:00:00 00:00:00 Shilo Shah MD: [address] [facility] [address] COMM[facility]ITY [address], [facility] [place], [place], [address] BRYAN , Ph. 2021-12-20 2021-12-20 Outpatient Cheyanne Shah [facility] 973 [id number] 00:00:00 00:00:00 Meghann [id number] 2021-12-03 2021-12-03 Office José Luis Dugan 1.2.840.1 [id number] 21 [id number] Methodi 10:00:00 10:48:00 Visit A. 80639.1.[address] 3.430.2.7 Hospit a .3.229313 l .8 2021-12-03 2021-12-03 Outpatient JOSÉ LUIS DUGAN [facility] 510 [id number] [place] 00:00:00 00:00:[address] 2021-12-03 2021-12-03 Travel 1.2.840.1 1.2.332.419 3969 [id number] Methodi 00:00:00 00:00:[address] 3.430.2.7 0.2.7.3.698 Ho spita .3.804132 084.8 l .8 2021-11-29 2021-11-29 Travel 1.2.840.1 1.2.228.169 1405 755172 Methodi 00:00:00 00:00:[address] 3.430.2.7 0.2.7.3.698 Ho spita .3.500725 084.8 l .8 2021-11-16 2021-11-18 [facility] Clarice José Luis 1.2.840.1 [id number] 2 [id number] Methodi 06:32:00 17:49:00 Encounter A[address] 15093.1.[address] 3.430.2.7 Hospit a .3.916948 l .8 2021-11-16 2021-11-16 Anesthesia Elkin Montgomery 1.2.840.1 077474 025 [id number] Methodi 12:00:00 15:40:00 Event Jannie Darby 98847.1.[address] 3.430.2.7 Hospit a .3.410642 l .8 2021-11-16 2021-11-16 Surgery Dugan, José Luis 1.2.840.1 [id number] 21 [id number] Methodi 11:25:00 14:25:[address] 3.430.2.7 Hospit a .3.980649 l .8 2021-11-10 2021-11-10 Orders Parmjit 1.2.840.1 [id number] 2099 [id number] Methodi 00:00:00 00:00:00 Only Zoë 81753.1.[address] 3.430.2.7 Hospit a .3.653622 l .8 2021-11-10 2021-11-10 Transcribe José Luis Dugan 1.2.840.1 [id number] Methodi 00:00:00 00:00:00 Orders A. 08143.1.[address] 3.430.2.7 Hospit a .3.635721 l .8 2021-11-01 2021-11-05 Hospital Dugan José Luis 1.2.840.1 [id number] 2 [id number] Methodi 05:47:00 14:32:00 Encounter A. 75064.1.[address] 3.430.2.7 Hospit a .3.038416 l .8 2021-11-04 2021-11-04 Orders Sandra, 1.2.840.1 [id number] Methodi 00:00:00 00:00:00 Only Rebecca PainterNani 01242.1.[address] 3.430.2.7 Hospit a .3.349202 l .8 2021-11-01 2021-11-01 Anesthesia Aurora Andersen 1.2.840.1 [id number] 661 [id number] Methodi 07:45:00 12:08:00 Event Jannie Darby 80421.1.[address] 3.430.2.7 Hospit a .3.420829 l .8 2021-11-01 2021-11-01 Surgery Dugan, José Luis 1.2.840.1 [id number] 21 [id number] Methodi 07:45:00 10:40:[address] 3.430.2.7 Hospit a .3.439652 l .8 2021-10-27 2021-10-27 Office Sandra, 1.2.840.1 [id number] 60295 84136 Methodi 10:30:00 11:33:42 Visit Rebecca Jimenez 62190.1.[address] 3.430.2.7 Hospit a .3.989315 l .8 2021-10-27 2021-10-27 Orders José Luis Dugan 1.2.840.1 [id number] 21 [id number] Methodi 00:00:00 00:00:[address] Only A. 33986.1.[address] 3.430.2.7 Hospit a .3.098966 l .8 2021-10-27 2021-10-27 Travel 1.2.840.1 1.2.469.473 3790 535417 Methodi 00:00:00 00:00:[address] 3.430.2.7 0.2.7.3.698 Ho spita .3.663773 084.8 l .8 2021-10-27 2021-10-27 Outpatient JOSÉ LUIS DUGAN [facility] 697 [id number] [place] 00:00:00 00:00:[address] 2021-10-12 2021-10-12 Pre-Admiss José Luis Dugan 1.2.840.1 [id number] Methodi 11:00:00 12:00:00 ion A. 90156.1.[address] Testing 3.430.2.7 Hospit a .3.090917 l .8 2021-10-12 2021-10-12 Travel 1.2.840.1 1.2.146.615 7517 208594 Methodi 00:00:00 00:00:[address] 3.430.2.7 0.2.7.3.698 Ho spita .3.132767 084.8 l .8 2021-10-07 2021-10-07 Orders Parnell, 1.2.840.1 [id number] 2100 823331 Methodi 00:00:00 00:00:00 Only Zoë 43207.1.[address] 3.430.2.7 Hospit a .3.441259 l .8 2021-09-16 2021-09-16 Outpatient JOANNA [facility] 4822-2 0220 Ney 10:55:00 10:55:00 106 [facility] Hospita [facility] 2021-09-16 2021-09-16 Cheyanne Zavaleta [facility] [place] - Ney 106 Ney 00:00:00 00:00:00 Shilo Shah MD: [address] [facility] Hospit a [address], [facility] [address], [facility] [place], [address] BRYAN , Ph. 2021-09-16 2021-09-16 Outpatient Cheyanne Shah [facility] c3f [id number] 00:00:00 00:00:00 Meghann [id number] 2021-09-08 2021-09-08 Documentat Provider, 1.2.840.1 [id number] 2 [id number] Methodi 00:00:00 00:00:00 ion Unknown 56850.1.[address] 3.430.2.7 Hospit a .3.074945 l .8 2021-09-07 2021-09-07 Transcribe José Luis Dugan 1.2.840.1 [id number] Methodi 00:00:00 00:00:00 Orders A. 82531.1.[address] 3.430.2.7 Hospit a .3.943078 l .8 2021-09-07 2021-09-07 Travel 1.2.840.1 1.2.751.125 3871 603695 Methodi 00:00:00 00:00:[address] 3.430.2.7 0.2.7.3.698 Ho spita .3.866151 084.8 l .8 2021-08-23 2021-08-23 Telephone Sudeep, 1.2.840.1 [id number] 2 [id number] Methodi 00:00:00 00:00:[address] 3.430.2.7 Hospit a .3.822989 l .8 2021-08-23 2021-08-23 Orders José Luis Dugan 1.2.840.1 [id number] 21 [id number] Methodi 00:00:00 00:00:00 Only Freddy 82141.1.[address] 3.430.2.7 Hospit a .3.333682 l .8 2021-08-18 2021-08-18 Hospital José Luis Dugan 1.2.840.1 [id number] 2 [id number] Methodi 15:32:27 23:59:00 Encounter Freddy 20859.1.[address] 3.430.2.7 Hospit a .3.333317 l .8 2021-08-18 2021-08-18 Office José Luis Dugan 1.2.840.1 [id number] 21 [id number] Methodi 15:40:00 15:40:00 Visit Freddy 52695.1.[address] 3.430.2.7 Hospit a .3.701401 l .8 2021-08-18 2021-08-18 Travel 1.2.840.1 1.2.405.625 3462 110628 Methodi 00:00:00 00:00:[address] 3.430.2.7 0.2.7.3.698 Ho spita .3.515504 084.8 l .8 2021-08-11 2021-08-11 Travel 1.2.840.1 1.2.930.742 0758 804209 Methodi 00:00:00 00:00:[address] 3.430.2.7 0.2.7.3.698 Ho spita .3.868366 084.8 l .8 2021-08-10 2021-08-10 Orders Dugan, José Luis 1.2.840.1 [id number] 21 [id number] Methodi 00:00:00 00:00:[address] Only A. 55491.1.[address] 3.430.2.7 Hospit a .3.966495 l .8 2021-07-29 2021-07-29 Office Dugan, José Luis 1.2.840.1 [id number] 21 [id number] Methodi 14:00:00 14:38:43 [address] A. 77783.1.[address] 3.430.2.7 Hospit a .3.667503 l .8 2021-07-29 2021-07-29 Travel 1.2.840.1 1.2.174.655 8304 166137 Methodi 00:00:00 00:00:[address] 3.430.2.7 0.2.7.3.698 Ho spita .3.247660 084.8 l .8 2021-07-23 2021-07-23 Travel 1.2.840.1 1.2.273.258 2083 [id number] Methodi 00:00:00 00:00:[address] 3.430.2.7 0.2.7.3.698 Ho spita .3.501154 084.8 l .8 2021-07-12 2021-07-12 Outpatient DUGAN, JOSÉ LUIS [facility] 862 [id number] [place] 00:00:00 00:00:[address] 2021-07-12 2021-07-12 Outpatient DUGAN, JOSÉ LUIS [facility] 143 [id number] [place] 00:00:00 00:00:[address] 2021-05-21 2021-05-21 Outpatient CATESADRIEL [facility] 2100 [id number] [place] 00:00:00 00:00:[address] 2021-04-29 2021-04-29 Outpatient DUGAN, JOSÉ LUIS [facility] 250 [id number] [place] 00:00:00 00:00:[address] 2021-04-29 2021-04-29 Outpatient DUGAN, JOSÉ LUIS [facility] 518 [id number] [place] 00:00:00 00:00:[address] 2021-04-29 2021-04-29 Outpatient DUGAN, JOSÉ LUIS [facility] 766 [id number] [place] 00:00:00 00:00:[address] 2021-04-28 2021-04-28 Outpatient DUGAN, JOSÉ LUIS [facility] 041 [id number] [place] 00:00:00 00:00:[address] 2021-04-28 2021-04-28 Outpatient DUGAN, JOSÉ LUIS [facility] 526 [id number] [place] 00:00:00 00:00:[address] 2021-01-04 2021-01-04 Outpatient KESUZI_A [facility] 4822-2 0210 Ney 05:46:00 05:46:00 426 [facility] 2021-01-04 2021-01-04 Outpatient Cheyanne Shah [facility] 196 [id number] 00:00:00 00:00:00 Mgehann [id number] 2021-01-04 2021-01-04 Cheyanne Zavaleta [facility] [place] - Ney 426 Ney 00:00:00 00:00:00 Shilo Shah MD: [address] [facility] [address], [facility] B, HOSPITAL [place], [place] CL[place], [address] BRYAN , Ph. 2020-12-28 2020-12-28 Outpatient BRYAN_Fouzia [facility] 4822-2 0210 Ney 02:01:00 02:01:00 419 [facility] 2020-12-28 2020-12-28 Outpatient Cheyanne Shah [facility] 18f [id number] 00:00:00 00:00:00 Meghann [id number] 2020-12-28 2020-12-28 Cheyanne Zavaleta [facility] [place] - Ney [id number] 419 Ney 00:00:00 00:00:00 Shilo Shah MD: [address] [facility] Hospit a [address], [facility] l [address], HOSPITAL [place], [place], [address] BRYAN , Ph. 2020-12-21 2020-12-21 Outpatient KEFFER_A [facility] 4822-2 0210 Ney 12:01:00 12:01:00 412 [facility] 2020-07-29 2020-07-29 Outpatient [facility]ffer[facility] 2019 [place] 02:19:00 02:19:00 [facility] 2018-08-08 2018-08-08 Outpatient keffer_a [facility] 2019 [place] 04:05:00 04:05:00 [facility] Results Test Description Test Time Test Comments Results Result Comments Source Anaerobic culture 2021-11-21 13:47:00 Test Item Value Reference Range Interpretation Comme nts Anaerobic culture No anaerobic organisms Specimen InformationSpecimen isolate (test code = isolated. Source: TissueSpecimen Site: Hip: 06053-6) RIGHT HIP DEEP CULTURE TANIA (test code = TANIA) [id number] 03:40:00 Test Item Value Reference Range Interpretation Comments Aerobic culture No growth Specimen isolate (test after 3 days. InformationSp ecimen code = 28451-2) Source: Tiss ueSpecimen Site: Hip: RIGH T HIP DEEP CULTURE TANIA (test code NO TISSUE = TANIA) [facility] [id number] 23:41:00 Test Item Value Reference Range Interpretation Comments Urine culture (test SEE COMMENT Bacteriu ana luisa screen code = 4953573) negative. [facility]19) RNA [Presence] in Respiratory specimen by YENI with probe [id number] 02:11:13 Test Item Value Reference Range Interpretation Comments SARS-CoV-2 (COVID-19) RNA Not detected [Presence] in Respiratory specimen by YENI with probe detection (test code = 74919-4) Whether patient is employed in a Unknown healthcare setting (test code = 65956-3) Whether the patient has symptoms Unknown related to condition of interest (test code = 01349-1) Whether the patient was Unknown hospitalized for condition of interest (test code = 33410-0) Whether the patient was admitted Unknown to intensive care unit (ICU) for condition of interest (test code = 66190-5) Whether patient resides in a Unknown congregate care setting (test code = 93632-6) status (test code = Unknown 60224-6) Date and time of symptom onset Unknown (test code = 87247-7) [facility] [id number] 03:57:00 Test Item Value Reference Range Interpretation Comments Gram stain No WBC's or Specimen isolate (test organisms seen. Information Specimen code = 1469) Source: TissueS pecimen Site: Hip: RIGH T HIP DEEP CULTURE TANIA (test code NO TISSUE SEEN = TANIA) [facility] [id number] 20:26:00 Test Item Value Reference Range Interpretation Comments Product name (test code Red Blood Cells -1, = 25) Leukored Unit number (test code = [id number] 8019933) Product code (test code O3305M84 = 3092) Dispense status (test Transfused code = 24) Blood expiration date (test code = 302) Blood type code (test code = 308) Blood type (test code = O POSITIVE 1314) Compatibility (test code Compatible = 6400) TANIA (test code = TANIA) 11/16/21 13:[address]Rachel Armstrong in OR order & signature onpickup requisitionreceived/s [facility]11/16/21 13:[address]Rachel Armstrong in OR order & signature onpickup requisitionreceived/s [facility] [id number] 16:13:45 Test Item Value Reference Range Interpretation Comments Case number (test code = [id number]) Surgical pathology See link below for report (test code = PDF Lab Report 2255) Result status (test code This is Final Report = [id number]) for [id number] [facility] 12 [id number] 22:59:34 Test Item Value Reference Range Interpretation Comments Ventricular rate (test code = 253) Atrial rate (test code = 255) [place] interval (test code = 266) QRSD interval [...] Gonzalez MD (2004) on 11/01/2021 4:59:32 PM [facility] Hospital[facility]terial blood gas, [id number] 17:23:00 Test Item Value Reference Range Interpretation Comments pH, arterial (test code 7.35-7.45 L = 2744-1) pCO2, arterial (test See_Comment H [Autom ated message] code = 2019-8) The system NormOxys generated this result transmitted ref erence range: 35 - 45 mmHg. The reference r leo was not used to interpret this result as normal/abnor mal. pO2, arterial (test code See_Comment H [A utomated message] = 2703-7) The system Datumate generated this result transmitted ref erence range: 80 - 90 mmHg. The reference r leo was not used to interpret this result as normal/abnor mal. Temperature, Celsius Degrees C (test code = 8310-5) O2 saturation, arterial 99 % 95-100 (test code = 2708-6) pH, arterial corrected (test code = 54968-2) pCO2, arterial corrected mmHg (test code = 44342-0) pO2, arterial corrected mmHg (test code = 53884-0) Base excess, arterial See_Comment [Auto mated message] (test code = 1925-7) The s tem which generated this result transmitted ref erence range: -2 - 2 m Eq/L. The reference r leo was not used to interpret this result as normal/abnor mal. Lab Interpretation (test Abnormal code = 87918-6) [facility] HospitalGlucose level, [id number] 17:23:00 Test Item Value Reference Range Interpretation Comments Glucose, syringe (test code = 220 mg/dL 65-99 H 2345-7) Lab Interpretation (test code = Abnormal 71199-7) [facility] HospitalHemoglobin, [id number] 17:23:00 Test Item Value Reference Range Interpretation Comments Hemoglobin, syringe (test code = 8.6 g/dL 12.0-16.0 L 718-7) Lab Interpretation (test code = Abnormal 54558-6) [facility] HospitalPotassium, [id number] 17:23:00 Test Item Value Reference Range Interpretation Comments Potassium, syringe See_Comment [Automat ed message] The (test code = 2008) system wh ich generated this result tra nsmitted reference range : 3.5 - 5.0 mEq/L. The refe rence range was not used to interpret this result as normal/abnormal . [facility] level, [id number] 17:23:00 Test Item Value Reference Range Interpretation Comments Sodium, syringe (test See_Comment [Auto mated message] The code = 2947-0) system which generated this result tra nsmitted reference range : 125 - 148 mEq/L. The refe rence range was not used to interpret this result as normal/abnormal . [facility] HospitalIonized calcium, [id number] 15:35:00 Test Item Value Reference Range Interpretation Comments Ionized calcium, arterial (test 1.13 mmol/L 1.11-1.32 code = 47950-9) [facility] (COVID-19) RNA [Presence] in Respiratory specimen by YENI with probe [id number] 21:49:41 Test Item Value Reference Range Interpretation Comments SARS-CoV-2 (COVID-19) RNA Not detected Not-Detected [Presence] in Respiratory specimen by YENI with probe detection (test code = 08513-0) Whether patient is employed in a healthcare setting (test code = 28951-0) Whether the patient has symptoms related to condition of interest (test code = 89579-7) Patient was hospitalized because of this condition (test code = 97248-7) Whether the patient was admitted to intensive care unit (ICU) for condition of interest (test code = 28460-8) Whether patient resides in a congregate care setting (test code = 36369-1) [facility]
[2023-01-31 16:06] VITALS: BMI 35.2
[2023-01-31] MEDS ORDERED: HYDROCODONE/APAP 5/325 MG TAB PO PRN (18:05)
[2023-01-31] MEDS ORDERED: ONDANSETRON 4 MG/2 ML VIAL IV PRN (18:05)
--- NOTE | 2023-01-31 18:23 | RAD REPORT ---
EXAM DESCRIPTION: NM - Vent Perfusion VQ Scan - 01/31/2023 5:39 pm CLINICAL HISTORY: r/o vte COMPARISON: Chest Single View dated 01/31/2023 TECHNIQUE: 18.2mCi Xe-133 gas inhaled and 7.1mCi Tc-MAA IV. Planar ventilation scan was performed in posterior projection after Xe-133 gas inhalation (wash-in, e quilibrium, and wash-out phases) followed by perfusion scan with Tc-MAA IV in multiple projections. Examination is correlated with recent chest radiograph. FINDINGS: Normal ventilation with appropriate wash-out and no significant air-trapping. Single small subsegmental perfusion defect suspected along the upper segment left lower lobe. No othe r mismatched segmental perfusion defect. IMPRESSION: Normal or Very low probability of acute pulmonary embolism.
--- NOTE | 2023-01-31 18:24 | RAD REPORT ---
EXAM DESCRIPTION: Bharat Single View01/31/2023 5:29 pm CLINICAL HISTORY: POST VQ SCAN COMPARISON: No comparisons TECHNIQUE: Portable AP view of the chest. FINDINGS: The lungs are clear. No pneumothorax or effusion. The cardiomediastinal contours are unrem arkable. IMPRESSION: No acute cardiopulmonary process.
--- NOTE | 2023-01-31 18:46 | P.HP ---
Certification for Inpatient Patient admitted to: Inpatient With expected LOS: >2 Midnights Patient will require the following post-hospital care: None Practitioner: I am a practitioner with admitting privileges, knowledge of patient current condition, hospital course, and medical plan of care. Services: Services provided to patient in accordance with Admission requirements found in Title 42 Section 412.3 of the Code of Federal Regulations Patient History Date of Service: 01/31/23 Reason for admission: Chest pain, dyspnea History of Present Illness: 77-year-old female with history of insulin-dependent diabetes, hypertension, hypothyroidism, OA presented to outside hospital emergency department with chief complaint of chest pain, shortness of breath, cough. She reports over the course of the last 2-3 days she has been having increasing cough, chest pain, shortness of breath. She does report chills, low-grade fever. She is evaluated at outside hospital her labs were significant for leukocytosis white blood cell count 16.7, 4% bands sodium 129 potassium 3.8 chloride 94 glucose 198 chest x- ray was negative for acute findings D-dimer was elevated, patient has significant contrast allergy. She was transferred to our facility for further evaluation/management and VQ scan. She has since had VQ scan which was normal/very low probability for pulmonary embolism. Repeat chest x-ray here was again negative for acute findings. Patient also reports generalized weakness no focal neurological deficits noted that he reports some trace swelling of lower extremities. Ultrasound ordered for further evaluation. Concern for infectious process/developing pneumonia given leukocytosis, bandemia, cough, chills, shortness of breath, pleuritic chest pain. Blood cultures/lactate added, will start antibiotics after blood cultures obtained. Allergies canagliflozin Allergy (Verified 04/06/22 14:52) Itching/Hives/Rash dulaglutide Allergy (Verified 04/06/22 14:52) Itching/Hives/Rash levofloxacin [From Levaquin] Allergy (Verified 04/06/22 14:52) Anaphylaxis iodine Adverse Reaction (Verified 04/06/22 14:52) Anaphylaxis iv dye Allergy (Uncoded 04/06/22 14:52) Shortness of breath Home Medications: Insulin NPH Hum/Reg Insulin Hm [Humulin 70-30 Vial] 27 unit SQ SEECOM 11/19/21 Lisinopril [Zestril] 10 mg PO DAILY 11/19/21 Lisinopril/Hydrochlorothiazide [Lisinopril-Hctz 20-25 mg Tab] 1 each PO DAILY 11/19/21 Pantoprazole [Protonix Tab*] 40 mg PO DAILY 11/19/21 Ubidecarenone [Co Q-10] 200 mg PO DAILY 11/19/21 L.acidoph,Paracasei, B.lactis [Probiotic] 1 each PO DAILY 01/31/23 Oxybutynin Chloride [Oxybutynin Chloride ER] 10 mg PO DAILY 01/31/23 Vit C/E/Zn/Coppr/Lutein/Zeaxan [Preservision Areds 2 Softgel] 1 tab PO BID 01/31/23 - Past Medical/Surgical History Has patient received pneumonia vaccine in the past: No Diabetic: Yes -: Insulin-dependent diabetes -: Hypertension -: hypothyroidism -: OA -: abd sx foot sx \ -: c5-7 sx hernia repair -: trh shoulder sx lt -: breast lumpectomy -: cs hysterectomy -: cholecystectomy -: conoscopy -: d&c Psychosocial/ Personal History: Lives at home with family - Social History Smoking Status: Never smoker Alcohol use: No CD- Drugs: No Caffeine use: Yes Place of Residence: Home Review of Systems 10-point ROS is otherwise unremarkable General: Chills, Weakness, Malaise Respiratory: Cough, Shortness of Breath, Pleuritic Pain Physical Examination - Vital Signs Temperature: 97.8 F Blood Pressure: 102/53 Pulse: 88 Respirations: 16 Pulse Ox (%): 94 - Physical Exam General: Alert, In no apparent distress, Oriented x3 HEENT: Atraumatic, PERRLA, Mucous membr. moist/pink, EOMI, Sclerae nonicteric Neck: Supple, 2+ carotid pulse no bruit, No LAD, Without JVD or thyroid abnormality Respiratory: Normal air movement, Diminished Cardiovascular: Regular rate/rhythm, Normal S1 S2 Capillary refill: <2 Seconds Gastrointestinal: Normal bowel sounds, No tenderness Musculoskeletal: No tenderness Integumentary: No rashes Neurological: Normal speech, Normal strength at 5/5 x4 extr, Normal tone, Normal affect Assessment and Plan - Plan Assessment: Chest pain rule out ACS Leukocytosis, dyspnea, cough Mild hyponatremia Hypertension Hypothyroidism Osteoarthritis Plan: Chest pain rule out ACS Troponins, monitor on telemetry. V/Q negative/very low probability. Will obtain ultrasound lower extremities as well given elevated D-dimer, trace edema. Suspect chest pain is more pleuritic in nature. Leukocytosis, dyspnea, cough Urinalysis negative, patient denies any abdominal pain, no tenderness on exam, chest x-ray negative x2 today blood cell count was 16.7 with 4% bandemia, does report chills, cough. Will start on antibiotics to cover for possible pneumonia. Consider CT chest without contrast for further evaluation. Blood cultures/lactate ordered. Mild hyponatremia Additional labs ordered suspect this is secondary to HCTZ that she takes at home, hold HCTZ continue gentle IV fluids overnight. Hypertension Continue home medications, hold HCTZ continue med. Hypothyroidism Osteoarthritis Continue home meds. DVT PPX: Lovenox Code status:full Discharge Plan: Home Plan to discharge in: 24 Hours - Advance Directives Does patient have a Living Will: No Does patient have a Durable POA for Healthcare: No - Code Status/Comfort Care Code Status Assessed: Yes (Full code) Critical Care: No Time Spent Managing Pts Care (In Minutes): 55
[2023-01-31 19:07] LABS: Troponin High Sensitivity 8.9 pg/mL (<58.9)
[2023-01-31] MEDS: NA CHLORIDE 0.9% 1,000 ML IV SCH (20:34)
[2023-01-31] MEDS: CEFTRIAXONE 1,000 MG in NA CHLORIDE 0.9% 50 ML IVPB SCH (20:36)
[2023-01-31] MEDS: INSULIN -REGULAR HUMAN 50 UNIT/0.5 ML ML SQ SCH (20:40)
[2023-01-31] MEDS: AZITHROMYCIN IV 500 MG in NA CHLORIDE 0.9% 250 ML IVPB SCH (21:48)
[2023-01-31] MEDS: ACETAMINOPHEN 500 MG TAB PO PRN (21:53)
[2023-01-31] MEDS: MELATONIN 5 MG TABLET PO PRN (21:53)
[2023-01-31 22:15] LABS: Urine Bacteria <20 /HPF (<20)
[2023-01-31 22:19] LABS: Urine Bilirubin Negative (Negative); Urine Clarity Clear (Clear); Urine Color Yellow (Yellow); Urine Glucose Negative (Negative)
[2023-01-31 22:20] LABS: Urine Blood 1+ (Negative); Urine Protein Negative (Negative); Urine Urobilinogen Normal (Normal)
[2023-02-01 06:14] LABS: Absolute Lymphocytes (CBC) 3.3 K/uL (0.7-4.9); Hematocrit 30.2 % (36.0-45.0); Lymphocytes % 20.3 % (15.3-44.8); MCV 91.7 fL (80-100); MPV 7.7 fL (7.6-11.3)
[2023-02-01 06:31] LABS: Magnesium 1.7 mg/dL (1.6-2.4); Thyroid Stimulating Hormone 2.69 uIU/mL (0.358-3.740); Troponin High Sensitivity 6.5 pg/mL (<58.9)
--- NOTE | 2023-02-01 07:26 | P.PN ---
Date of Service: 02/01/23 Subjective: Feeling much better this morning no new / worsening problems able to ambulate with walker only complaint is persistant cough, shoulder pain ROS: 10 point ROS as noted above, otherwise negative Physical Exam: GEN: Alert, oriented, NAD HEENT: Normal conjunctiva, sclera anicteric CV: Regular rate and rhythm, no edema Pulm: Nonlabored respirations on room air ABD: Soft, nontender, nondistended MSK: No joint tenderness Integumentary: No rashes Neuro: Normal speech, normal affect vitals reviewed Problem List: Pneumonia? Chest pain Leukocytosis, dyspnea, cough Mild hyponatremia Hypertension Hypothyroidism Osteoarthritis Pneumonia? Leukocytosis, dyspnea, cough CT chest - Bilateral posterior lower lobe airspace opacities as above, more extensive on the right, concerning for pneumonia. CXR negative x2 UA negative continue IV rocephin and Azithromycin Blood cultures pending PA fern 02/01 Chest pain trend Troponins - negative x3, monitor on telemetry. V/Q negative/very low probability Venous Doppler - negative for DVT echo pending cardiology consulted recommends outpatient lexiscan down the road Mild hyponatremia suspect this is secondary to HCTZ that she takes at home, hold HCTZ continue gentle IVF Hypertension Continue home medications, hold HCTZ Hypothyroidism Osteoarthritis Continue home meds VTE: Lovenox Code: Full Dispo: Home 1 day
[2023-02-01] MEDS: INSULIN -REGULAR HUMAN 50 UNIT/0.5 ML ML SQ SCH ×4 (07:30→21:37)
--- NOTE | 2023-02-01 08:19 | CON ---
Date of Consultation: 01/31/2023 Reason For Consultation: Atypical chest pain, pleuritic. History Of Present Illness: Ms. Rodríguez is a 77-year-old. Has a history of diabetes, hypertension , hypothyroidism. Came in with chest pain with cough, pleuritic type chest pain, sharp, stabbing. A lso has fever and chills. Negative chest x-ray, negative V/Q scan. Elevated procalcitonin, elevated CRP. White count is 16,000. The patient is feeling better on antibiotics. Echocardiogram is pendi ng. Past Medical History: As stated above. Allergies: SHE IS ALLERGIC TO LEVAQUIN AND IODINE. Review of Systems: Negative. Social History: Negative. Family History: Positive for heart disease. Medications: At home include lisinopril with hydrochlorothiazide, insulin, Zestril, Protonix. Physical Examination: Vital Signs: Stable, afebrile, sinus rhythm. HEENT: Negative. Neck: Supple with no bruit. Chest: Clear. Cardiac: Reveals regular rhythm and rate. No murmurs, gallops, or rubs. Abdomen: Benign. Extremities: Revealed no clubbing, cyanosis, or edema. Diagnostic Data: As stated above. Impression And Plan: Pleuritic chest pain probably secondary to bronchitis. The patient is on antib iotic. She has elevated white count, negative chest x-ray, elevated CRP and procalcitonin. Continue antibiotics, obtain a 2D echocardiogram to rule out congestive heart failure. I think she needs to have an outpatient Lexiscan later. Diabetes, hypertension, hypothyroidism, and gastroesophageal refl ux disease are stable. Continue the same therapy. She is allergic to iodine, we will have to give t hat at 9 just in case she needs to have more invasive workup down the road. Meanwhile, continue pres ent regimen, see what the echo shows, and make plans regarding discharge. VIDHI/HODAN Voice ID: [id number] Report ID: [id number]
[2023-02-01 08:22] LABS: Platelet Estimate ADEQ; White Blood Cell Scan OK (OK)
[2023-02-01 08:23] LABS: Blood Morphology Comment NOT SEEN (NOT SEEN)
--- NOTE | 2023-02-01 08:44 | RAD REPORT ---
EXAM DESCRIPTION: CT - Thorax Wo Con - 02/01/2023 8:11 am CLINICAL HISTORY: Dyspnea, cough, chest pain, low-grade fevers. COMPARISON: 01/31/2023 chest radiograph. TECHNIQUE: Axial 5 mm thick images of the chest were obtained without IV contrast. All CT scans are performed using dose optimization technique as appropriate and may include automated exposure control or mA/KV adjustment according to patient size. FINDINGS: Bilateral posterior lower lobe patchy consolidative opacities with surrounding ground-glas s opacification, more extensive on the right, with early changes of air bronchogram on the right. A 3 millimeter peripheral left lower lobe nodule is incidentally noted on axial image 40. No pleural thi ckening or pleural effusion. No pneumothorax. No abnormal mediastinal or hilar masses or lymphadenopathy seen. No significant aortic or pulmonary a rtery finding suspected. Assessment is limited in the absence of IV contrast. No chest wall mass or abnormal axilliary lymphadenopathy. IMPRESSION: Bilateral posterior lower lobe airspace opacities as above, more extensive on the right, concerning for pneumonia.
[2023-02-01] MEDS: AZITHROMYCIN IV 500 MG in NA CHLORIDE 0.9% 250 ML IVPB SCH (08:47)
[2023-02-01] MEDS: CEFTRIAXONE 1,000 MG in NA CHLORIDE 0.9% 50 ML IVPB SCH (08:48)
[2023-02-01] MEDS: ENOXAPARIN 40 MG/0.4 ML SQ SCH (08:52)
--- NOTE | 2023-02-01 08:59 | RAD REPORT ---
EXAM DESCRIPTION: US - Extrem Venous W Compress Phillip - 02/01/2023 5:47 am CLINICAL HISTORY: Elevated D-dimer. Leg swelling. Rule out DVT COMPARISON: 11/24/2021 TECHNIQUE: Real-time sonographic evaluation of the bilateral lower extremity deep venous systems was performed. FINDINGS: Normal compressibility, flow augmentation, phasic flow and spontaneous flow is identified in both the left and right lower extremity deep venous systems. No intraluminal filling defects seen. IMPRESSION: No evidence of DVT in either lower extremity.
[2023-02-01] MEDS ORDERED: MAGNESIUM SULFATE 1 gm IVPB 1 GM/100 ML BAG IV ONE (09:00)
[2023-02-01] MEDS: NA CHLORIDE 0.9% 1,000 ML IV SCH (10:43)
--- NOTE | 2023-02-01 14:01 | ECHO ---
HEIGHT: 5 ft 0 in WEIGHT: 180 lb 0 oz DATE OF STUDY: 02/01/[address]: Carlos Cagle MD 2-DIMENSIONAL: YES M.MODE: YES DOPPLER: YES COLOR FLOW: YES TDS: PORTABLE: YES DEFINITY: BUBBLE STUDY: DIAGNOSIS: SHORTNESS OF BREATH CARDIAC HISTORY: CATHERIZATION: NO SURGERY: NO PROSTHETIC VALVE: NO PACEMAKER: NO MEASUREMENTS (cm) DIASTOLIC (NORMALS) SYSTOLIC (NORMALS) IVSd 1.1 (0.6-1.2) LA Diam 2.8 (1.9-4.0) LVEF 60% LVIDd 4.2 (3.5-5.7) LVIDs 2.9 (2.0-3.5) %FS 31% LVPWd 1.1 (0.6-1.2) Ao Diam 2.6 (2.0-3.7) 2 DIMENSIONAL ASSESSMENT: RIGHT ATRIUM: NORMAL LEFT ATRIUM: NORMAL RIGHT VENTRICLE: NORMAL LEFT VENTRICLE: NORMAL TRICUSPID VALVE: NORMAL MITRAL VALVE: NORMAL PULMONIC VALVE: NORMAL AORTIC VALVE: NORMAL PERICARDIAL EFFUSION: NONE AORTIC ROOT: NORMAL LEFT VENTRICULAR WALL MOTION: NORMAL DOPPLER/COLOR FLOW: NORMAL COMMENTS: 1. NORMAL LEFT VENTRICULAR EJECTION FRACTION 60-65% 2. NORMAL WALL MOTION 3. NORMAL DIASTOLIC DYSFUNCTION TECHNOLOGIST: AMADEO RIVERA
[2023-02-01] MEDS: ACETAMINOPHEN 500 MG TAB PO PRN (20:13)
[2023-02-01] MEDS: MELATONIN 5 MG TABLET PO PRN (20:13)
[2023-02-02 06:21] LABS: Absolute Lymphocytes (CBC) 2.6 K/uL (0.7-4.9); Hematocrit 31.3 % (36.0-45.0); Lymphocytes % 24.1 % (15.3-44.8); MCV 92.8 fL (80-100); MPV 7.7 fL (7.6-11.3); RBC Red Blood Cell Count 3.37 M/uL (3.86-4.86)
[2023-02-02 06:35] LABS: Potassium 3.9 mEq/L (3.5-5.1)
--- NOTE | 2023-02-02 07:28 | P.PN ---
Date of Service: 02/02/23 Subjective: feeling slightly worse this morning dry cough persists; slightly worse last night no new problems ROS: 10 point ROS as noted above, otherwise negative Physical Exam: GEN: Alert, oriented, NAD HEENT: Normal conjunctiva, sclera anicteric CV: Regular rate and rhythm, no edema Pulm: Nonlabored respirations on room air ABD: Soft, nontender, nondistended MSK: No joint tenderness Integumentary: No rashes Neuro: Normal speech, normal affect vitals reviewed Problem List: Pneumonia? Chest pain Leukocytosis, dyspnea, cough Mild hyponatremia Hypertension Hypothyroidism Osteoarthritis Pneumonia? Leukocytosis, dyspnea, cough CT chest - Bilateral posterior lower lobe airspace opacities as above, more extensive on the right, concerning for pneumonia. CXR negative x2 UA negative continue IV rocephin and Azithromycin Blood cultures pending MORIAH shirley 02/01 Chest pain trend Troponins - negative x3, monitor on telemetry. V/Q negative/very low probability Venous Doppler - negative for DVT echo pending cardiology consulted recommends outpatient lexiscan down the road Mild hyponatremia suspect this is secondary to HCTZ that she takes at home, hold HCTZ continue gentle IVF Hypertension Continue home medications, hold HCTZ Hypothyroidism Osteoarthritis Continue home meds VTE: Lovenox Code: Full Dispo: Home 1 day
[2023-02-02] MEDS: INSULIN -REGULAR HUMAN 50 UNIT/0.5 ML ML SQ SCH ×2 (07:30→11:30)
[2023-02-02] MEDS ORDERED: POTASSIUM CL SA 10 MEQ TAB PO ONE (09:00)
[2023-02-02] MEDS: ENOXAPARIN 40 MG/0.4 ML SQ SCH (09:34)
[2023-02-02] MEDS: AZITHROMYCIN IV 500 MG in NA CHLORIDE 0.9% 250 ML IVPB SCH (09:35)
[2023-02-02] MEDS: CEFTRIAXONE 1,000 MG in NA CHLORIDE 0.9% 50 ML IVPB SCH (09:35)
--- NOTE | 2023-02-02 09:39 | P.DS ---
Admission Date: 01/31/23 Discharge Date: 02/02/23 Disposition: ROUTINE DISCHARGE Discharge Condition: GOOD Reason for Admission: Chest pain, dyspnea Consultations: Cardiology - Dr. Dhillon / Dr. Cagle Pulmonology - Dr. Zhao Brief History of Present Illness: 77 yo F, PMH: insulin-dependent diabetes, hypertension, hypothyroidism, OA Patient presented to outside hospital emergency department with chief complaint of chest pain, shortness of breath, cough. She reports over the course of the last 2-3 days she has been having increasing cough, chest pain, shortness of breath. She does report chills, low-grade fever. She is evaluated at outside hospital her labs were significant for leukocytosis white blood cell count 16.7, 4% bands sodium 129 potassium 3.8 chloride 94 glucose 198 chest x-ray was negative for acute findings D-dimer was elevated, patient has significant contrast allergy. She was transferred to our facility for further evaluation/management and VQ scan. She has since had VQ scan which was normal/very low probability for pulmonary embolism. Repeat chest x-ray here was again negative for acute findings. Patient also reports generalized weakness no focal neurological deficits noted that he reports some trace swelling of lower extremities. Ultrasound ordered for further evaluation. Concern for infectious process/developing pneumonia given leukocytosis, bandemia, cough, chills, shortness of breath, pleuritic chest pain. Blood cultures/lactate added, will start antibiotics after blood cultures obtained. Hospital Course: Problem List: Pneumonia Chest pain Leukocytosis, dyspnea, cough Mild hyponatremia Hypertension Hypothyroidism Osteoarthritis Physical Exam: GEN: Alert, oriented, NAD HEENT: Normal conjunctiva, sclera anicteric CV: Regular rate and rhythm, no edema Pulm: Nonlabored respirations on room air; mild cough ABD: Soft, nontender, nondistended Neuro: Normal speech, normal affect Vital Signs/Physical Exam: Temp Pulse Resp BP Pulse Ox 97 F 72 16 163/73 H 94 02/02/23 08:00 02/02/23 08:00 02/02/23 08:00 02/02/23 08:00 02/02/23 08:00 Laboratory Data at Discharge: WBC 11.00 thou/uL (4.3-10.9) H 02/02/23 05:39 Hgb 10.3 g/dL (12.0-15.0) L 02/02/23 05:39 Hct 31.3 % (36.0-45.0) L 02/02/23 05:39 Plt Count 320 thou/uL (152-406) 02/02/23 05:39 Sodium 140 mEq/L (136-145) D 02/02/23 05:39 Potassium 3.9 mEq/L (3.5-5.1) 02/02/23 05:39 BUN 15 mg/dL (7-18) 02/02/23 05:39 Creatinine 0.69 mg/dL (0.55-1.02) 02/02/23 05:39 Glucose 204 mg/dL (74-106) H 02/02/23 05:39 Magnesium 2.0 mg/dL (1.6-2.4) 02/02/23 05:39 Home Medications: Insulin NPH Hum/Reg Insulin Hm [Humulin 70-30 Vial] 27 unit SQ SEECOM 11/19/21 Lisinopril [Zestril] 10 mg PO DAILY 11/19/21 Lisinopril/Hydrochlorothiazide [Lisinopril-Hctz 20-25 mg Tab] 1 each PO DAILY 11/19/21 Pantoprazole [Protonix Tab*] 40 mg PO DAILY 11/19/21 Ubidecarenone [Co Q-10] 200 mg PO DAILY 11/19/21 L.acidoph,Paracasei, B.lactis [Probiotic] 1 each PO DAILY 01/31/23 Oxybutynin Chloride [Oxybutynin Chloride ER] 10 mg PO DAILY 01/31/23 Vit C/E/Zn/Coppr/Lutein/Zeaxan [Preservision Areds 2 Softgel] 1 tab PO BID 01/31/23 Cefpodoxime Proxetil [Vantin] 200 mg PO BID 7 Days #14 tab 02/02/23 New Medications: Cefpodoxime Proxetil [Vantin] 200 mg PO BID 7 Days #14 tab Physician Discharge Instructions: Patient presented with chest pain, shortness of breath, cough. Transferred to our facility from [place] for VQ scan. Patient was noted to have elevated d-dimer and a significant reaction to contrast which precluded her from getting a CTA. VQ scan was negative/low probability of PE. Troponins were negative. Cardiology was consulted. Echocardiogram was normal and Dr. Cagle had no further inpatient testing but did recommend she have a outpatient lexiscan at some point down the road. CT chest was performed for further investigation, and indicated Bilateral posterior lower lobe airspace opacities as above, more extensive on the right, concerning for pneumonia. Pulmonolgoy was consulted. She was given IV rocephin and Azithromycin. Her breathing had greatly improved, she no longer had chest pain, ambulating, and breathing more comfortably on room air, and was deemed stable for discharge with home antibiotics. Completed 3 days of azithromycin 500mg New prescription: Cefpodoxime x 7 days Follow up: PCP 3-5 days Pulmonology in ~1-2 weeks Cardiology within a few weeks Time spent managing pt's care (in minutes): 45
[2023-02-02 12:11] VITALS: BP 130/58; TEMP 96.9
[2023-02-02 12:27] VITALS: O2SAT 97
--- NOTE | 2023-02-02 13:05 | P.CNS ---
Date of Consult: 02/02/23 Reason for Consult: Pneumonia Chief Complaint: Chest pain, dyspnea History of Present Illness: Patient is 77 years of age mated with acute onset of chills right-sided chest discomfort shortness of breath on over the weekend and was admitted with a diagnosis of right lower lobe pneumonia currently she is doing better still has some chest discomfort not on any oxygen hemodynamically stable Allergies canagliflozin Allergy (Verified 04/06/22 14:52) Itching/Hives/Rash dulaglutide Allergy (Verified 04/06/22 14:52) Itching/Hives/Rash levofloxacin [From Levaquin] Allergy (Verified 04/06/22 14:52) Anaphylaxis iodine Adverse Reaction (Verified 04/06/22 14:52) Anaphylaxis iv dye Allergy (Uncoded 04/06/22 14:52) Shortness of breath Home Medications: Insulin NPH Hum/Reg Insulin Hm [Humulin 70-30 Vial] 27 unit SQ SEECOM 11/19/21 Lisinopril [Zestril] 10 mg PO DAILY 11/19/21 Lisinopril/Hydrochlorothiazide [Lisinopril-Hctz 20-25 mg Tab] 1 each PO DAILY 11/19/21 Pantoprazole [Protonix Tab*] 40 mg PO DAILY 11/19/21 Ubidecarenone [Co Q-10] 200 mg PO DAILY 11/19/21 L.acidoph,Paracasei, B.lactis [Probiotic] 1 each PO DAILY 01/31/23 Oxybutynin Chloride [Oxybutynin Chloride ER] 10 mg PO DAILY 01/31/23 Vit C/E/Zn/Coppr/Lutein/Zeaxan [Preservision Areds 2 Softgel] 1 tab PO BID 01/31/23 Cefpodoxime Proxetil [Vantin] 200 mg PO BID 7 Days #14 tab 02/02/23 - Past Medical/Surgical History Diabetic: Yes -: Insulin-dependent diabetes -: Hypertension -: hypothyroidism -: OA -: abd sx foot sx \ -: c5-7 sx hernia repair -: trh shoulder sx lt -: breast lumpectomy -: cs hysterectomy -: cholecystectomy -: conoscopy -: d&c Psychosocial/ Personal History: Lives at home with family - Social History Alcohol use: No CD- Drugs: No Caffeine use: Yes Place of Residence: Home Review of Systems 10-point ROS is otherwise unremarkable Physical Examination Temp Pulse Resp BP Pulse Ox 96.9 F 74 16 130/58 L 97 02/02/23 12:00 02/02/23 12:00 02/02/23 12:00 02/02/23 12:00 02/02/23 12:00 General: Alert, In no apparent distress, Oriented x3 Neck: Supple Respiratory: Crackles/rales (Crackles in the right lower lobe) Cardiovascular: No edema, Normal pulses, Regular rate/rhythm Gastrointestinal: Normal bowel sounds, Soft and benign Laboratory Data (last 24 hrs) 02/02/23 05:39: Sodium 140 D, Potassium 3.9, BUN 15, Creatinine 0.69, Glucose 204 H, Magnesium 2.0 02/02/23 05:39: WBC 11.00 H, Hgb 10.3 L, Hct 31.3 L, Plt Count 320 - Problems (1) Pneumonia Current Visit: Yes Status: Acute Plan: Patient is 77 years of age admitted with acute right lower lobe pneumonia and the risk factors for resistant organisms allergic to levofloxacin recommend discharging home on cephalosporin Augmentin and a macrolide White count is declining hemodynamically stable oxygenation satisfactory 97% on room air stable for discharge follow-up with me in 2 weeks Qualifiers: Pneumonia type: due to unspecified organism Laterality: right Lung location: lower lobe of lung Qualified Code(s): J18.9 - Pneumonia, unspecified organism
--- NOTE | 2023-02-03 15:44 | PN ---
Admitted to Dr. Frost for possible congestive heart failure, more likely than not she had bronchitis. She does have diabetes, hypertension, hypothyroidism. Echocardiogram was done to rule out congesti ve heart failure and it showed no evidence of congestive heart failure. No diastolic or systolic con gestive heart failure. Again, I think her symptoms are most likely related to pulmonary bronchitis. May have to be treated with antibiotics and steroid as an outpatient. Consider outpatient stress te st. Discharged whenever it is okay with Dr. Frost. VIDHI/HODAN Voice ID: [id number] Report ID: [id number]
== END 2023-02-02 13:45 | disposition home or self-care (01) ==
LOC: 4TH 15:28
PROVIDERS: ADMIT Hospitalist; ATTEND Hospitalist
DX: J18.9 Pneumonia, unspecified organism (principal); R07.9 Chest pain, unspecified; E87.1 Hypo-osmolality and hyponatremia; I10 Essential (primary) hypertension; E03.9 Hypothyroidism, unspecified; E11.9 Type 2 diabetes mellitus without complications; M19.90 Unspecified osteoarthritis, unspecified site; R53.1 Weakness; K21.9 Gastro-esophageal reflux disease without esophagitis; Z79.4 Long term (current) use of insulin; Z79.899 Other long term (current) drug therapy; Z88.3 Allergy status to other anti-infective agents; Z88.8 Allergy status to other drugs, medicaments and biological substances; Z91.041 Radiographic dye allergy status; Z90.49 Acquired absence of other specified parts of digestive tract; Z90.710 Acquired absence of both cervix and uterus; Z82.49 Family history of ischemic heart disease and other diseases of the circulatory system
CPT/HCPCS: 93306; 87040 ×2; 85025 ×2; 81001; 80048 ×2; 36415 ×2; 83735 ×2; 84132; 84300; 82947 ×7; 83605; 84443; 82570; 84484 ×2; 84439; 84145 ×2; 83935; 86140 ×2; 71250; 71045; 93970; 97110 ×2; 97116 ×2; 97161; 78582; G0379; J1815 ×2; J3475; J1650 ×2; J7050 ×3; J7030 ×2; J0696 ×3; A9558; A9540; G0378 ×3

== ENCOUNTER 2023-08-16 15:27 | Inpatient (IN) | payer OTHER ==
[2023-08-16 21:24] VITALS: BMI 35.5
[2023-08-16] MEDS ORDERED: GLUCAGON 1 MG/VIAL IM PRN (21:29)
[2023-08-16] MEDS ORDERED: D50W 25 GM/50 ML SYRINGE IV PRN (21:29)
[2023-08-16] MEDS ORDERED: SYSTANE EYE OPTH PRN (21:37)
[2023-08-16] MEDS ORDERED: D10W 125 ML IV PRN (21:46)
[2023-08-16] MEDS ORDERED: OXYBUTYNIN ER 5 MG TAB PO ONE (22:26)
[2023-08-16] MEDS ORDERED: INSULIN 70/30 100 UNITS/ML SQ ONE (22:28)
[2023-08-16] MEDS: INSULIN 70/30 100 UNITS/ML SQ SCH (22:34)
[2023-08-16] MEDS: ATORVASTATIN 80 MG TAB PO SCH (22:35)
[2023-08-16] MEDS: OXYBUTYNIN ER 5 MG TAB PO SCH ×2 (22:35)
[2023-08-17] MEDS ORDERED: DOCUSATE NA/SENNA CONC 1 TAB PO PRN (00:08)
[2023-08-17 04:13] LABS: Absolute Lymphocytes (CBC) 2.4 K/uL (0.7-4.9); Hematocrit 32.2 % (36.0-45.0); Lymphocytes % 16.1 % (15.3-44.8); MCV 94.2 fL (80-100); MPV 7.3 fL (7.6-11.3); Platelets 376 thou/uL (152-406); RBC Red Blood Cell Count 3.42 M/uL (3.86-4.86)
[2023-08-17 04:27] LABS: Albumin 2.4 g/dL (3.4-5.0); Magnesium 2.1 mg/dL (1.6-2.4); Potassium 4.3 mEq/L (3.5-5.1); Prealbumin 16.3 mg/dL (20-40)
[2023-08-17 04:33] LABS: Renal Epithelial <5 /HPF (None Seen); Specific Gravity 1.007 (1.005-1.030); Urine Bacteria None Seen /HPF (<20); Urine Bilirubin NEGATIVE (Negative); Urine Blood 2+ (Negative); Urine Clarity Clear (Clear); Urine Color Colorless (Yellow); Urine Glucose NEGATIVE (Negative); Urine Mucus Slight /HPF (None Seen); Urine Protein NEGATIVE (Negative); Urine RBC 21-50 /HPF (None Seen); Urine Urobilinogen Normal (Normal); Urine pH 6.5 (5.0-7.0)
[2023-08-17] MEDS: LEVOTHYROXINE SOD 0.05 MG TABLET PO SCH (05:38)
[2023-08-17] MEDS: PANTOPRAZOLE 40MG TABLET PO SCH (05:38)
[2023-08-17] MEDS: INSULIN REGULAR (HUMAN) 100 UNIT/ML SQ SCH ×4 (07:30→20:49)
[2023-08-17] MEDS: INSULIN 70/30 100 UNITS/ML SQ SCH ×2 (08:00→20:50)
[2023-08-17] MEDS ORDERED: CLOPIDOGREL 75 MG TABLET PO SCH (08:00)
[2023-08-17] MEDS: ASPIRIN 81 MG CHEWABLE TABLET PO SCH (09:26)
[2023-08-17] MEDS: LIDOCAINE 4% PATCH TOP SCH (09:27)
[2023-08-17] MEDS: VENLAFAXINE HCL XR 75 MG CAP PO SCH (09:27)
[2023-08-17] MEDS: DOCUSATE NA 100 MG CAP PO SCH ×2 (09:27→20:51)
[2023-08-17] MEDS: OXYBUTYNIN ER 5 MG TAB PO SCH ×2 (09:27→20:54)
[2023-08-17] MEDS: ACETAMINOPHEN 500 MG TAB PO PRN (09:37)
[2023-08-17] MEDS: lisinopriL 20 MG TAB PO SCH (09:44)
[2023-08-17] MEDS: NYSTATIN PWDR 100000 UNIT/GM TOP SCH ×2 (11:59→21:19)
[2023-08-17] MEDS: hydroCHLOROthiazide 25 MG TAB PO SCH (11:59)
[2023-08-17] MEDS ORDERED: LORATADINE 10 MG TAB PO PRN (13:54)
[2023-08-17] MEDS: APIXABAN 2.5 MG TABLET PO SCH (20:51)
[2023-08-17] MEDS: ATORVASTATIN 80 MG TAB PO SCH (20:51)
[2023-08-17] MEDS ORDERED: DOCUSATE NA/SENNA CONC 1 TAB PO SCH (21:00)
[2023-08-18] MEDS: LEVOTHYROXINE SOD 0.05 MG TABLET PO SCH (06:52)
[2023-08-18] MEDS: PANTOPRAZOLE 40MG TABLET PO SCH (06:52)
[2023-08-18] MEDS: INSULIN REGULAR (HUMAN) 100 UNIT/ML SQ SCH ×4 (06:56→20:28)
[2023-08-18] MEDS: VENLAFAXINE HCL XR 75 MG CAP PO SCH (07:53)
[2023-08-18] MEDS: LIDOCAINE 4% PATCH TOP SCH (07:53)
[2023-08-18] MEDS: OXYBUTYNIN ER 5 MG TAB PO SCH ×2 (07:54→20:27)
[2023-08-18] MEDS: ASPIRIN 81 MG CHEWABLE TABLET PO SCH (07:54)
[2023-08-18] MEDS: APIXABAN 2.5 MG TABLET PO SCH ×2 (07:54→20:27)
[2023-08-18] MEDS: DOCUSATE NA 100 MG CAP PO SCH ×2 (07:54→20:27)
[2023-08-18] MEDS: NYSTATIN PWDR 100000 UNIT/GM TOP SCH ×2 (08:00→20:28)
[2023-08-18] MEDS: INSULIN 70/30 100 UNITS/ML SQ SCH ×3 (08:00→20:28)
[2023-08-18] MEDS: lisinopriL 20 MG TAB PO SCH (10:06)
[2023-08-18] MEDS: hydroCHLOROthiazide 25 MG TAB PO SCH (10:07)
--- NOTE | 2023-08-18 12:56 | RAD REPORT ---
EXAM DESCRIPTION: RAD - Barium Swallow Modified - 08/18/2023 12:42 pm CLINICAL HISTORY: dysphagia COMPARISON: No comparisons TECHNIQUE: The patient was given liquid, semi-solid and solid forms of barium. Lateral view fluorosc opic imaging was performed in conjunction with speech pathology service. FINDINGS: MBS findings: laryngeal penetration not cleared, thin liquid by spoon; aspiration, cough, thin liquid by spoon, delayed swallow reflex, laryngeal penetration with reduced laryngeal elevation, chin tuck for thin liquid by spoon. Total fluoroscopy time: 1 minutes and 2 seconds
--- NOTE | 2023-08-18 13:23 | P.RH.PN ---
Estimated Length of Stay: 22 Expected Discharge Date: 09/05/23 Discharge Disposition Plan: Home Family Support: Yes Retirement Goal: Mobility, Transfers, Self Care Vital Signs: Last Vital Signs Temp 96.8 F 08/18/23 07:02 Pulse 73 08/18/23 10:07 Resp 16 08/18/23 07:02 BP 144/63 H 08/18/23 10:07 Pulse Ox 94 08/18/23 07:02 Laboratory: Laboratory Last Values WBC 14.80 thou/uL (4.3-10.9) H 08/17/23 03:19 RBC 3.42 M/uL (3.86-4.86) L 08/17/23 03:19 Hgb 10.6 g/dL (12.0-15.0) L 08/17/23 03:19 Hct 32.2 % (36.0-45.0) L 08/17/23 03:19 MCV 94.2 fL (80-100) 08/17/23 03:19 MCH 31.1 pg (27.0-35.0) 08/17/23 03:19 MCHC 33.0 g/dL (32.0-36.0) 08/17/23 03:19 RDW 14.4 % (12.1-15.2) 08/17/23 03:19 Plt Count 376 thou/uL (152-406) 08/17/23 03:19 MPV 7.3 fL (7.6-11.3) L 08/17/23 03:19 Neutrophils % 74.4 % (41.7-73.7) H 08/17/23 03:19 Lymphocytes % 16.1 % (15.3-44.8) 08/17/23 03:19 Monocytes % 8.1 % (3.3-12.3) 08/17/23 03:19 Eosinophils % 1.2 % (0-4.4) 08/17/23 03:19 Basophils % 0.2 % (0-1.3) 08/17/23 03:19 Absolute Neutrophils 11.0 K/uL (1.8-8.0) H 08/17/23 03:19 Absolute Lymphocytes 2.4 K/uL (0.7-4.9) 08/17/23 03:19 Absolute Monocytes 1.2 K/uL (0.1-1.3) 08/17/23 03:19 Absolute Eosinophils 0.2 K/uL (0-0.5) 08/17/23 03:19 Absolute Basophils 0.0 K/uL (0-0.5) 08/17/23 03:19 Sodium 140 mEq/L (136-145) 08/17/23 03:19 Potassium 4.3 mEq/L (3.5-5.1) 08/17/23 03:19 Chloride 108 mEq/L (98-107) H 08/17/23 03:19 Carbon Dioxide 27 mEq/L (21-32) 08/17/23 03:19 Anion Gap 9.3 mEq/L (5.0-15.0) 08/17/23 03:19 BUN 11 mg/dL (7-18) 08/17/23 03:19 Creatinine 0.85 mg/dL (0.55-1.02) 08/17/23 03:19 Est GFR (CKD-EPI) 71 ml/min (=/>90) L 08/17/23 03:19 Glucose 118 mg/dL (74-106) H 08/17/23 03:19 POC Glucose 210 mg/dL (65-120) H 08/18/23 11:54 Calcium 8.9 mg/dL (8.5-10.1) 08/17/23 03:19 Magnesium 2.1 mg/dL (1.6-2.4) 08/17/23 03:19 Albumin 2.4 g/dL (3.4-5.0) L 08/17/23 03:19 Prealbumin 16.3 mg/dL (20-40) L 08/17/23 03:19 Urine Color Colorless (Yellow) 08/17/23 03:24 Urine Clarity Clear (Clear) 08/17/23 03:24 Urine pH 6.5 (5.0-7.0) 08/17/23 03:24 Ur Specific [place] 1.007 (1.005-1.030) 08/17/23 03:24 Glucose (UA)(Auto) Negative (Negative) 08/17/23 03:24 Urine Ketones Negative (Negative) 08/17/23 03:24 Urine Blood 2+ (Negative) H 08/17/23 03:24 Urine Nitrite Negative (Negative) 08/17/23 03:24 Urine Bilirubin Negative (Negative) 08/17/23 03:24 Urine Urobilinogen Normal (Normal) 08/17/23 03:24 Ur Leukocyte Esterase Negative Jcarlos/uL (Negative) 08/17/23 03:24 Urine RBC 21-50 /HPF (None Seen) H 08/17/23 03:24 Urine WBC <5 /HPF (<5) 08/17/23 03:24 Ur Squamous Epith Cells <5 /HPF (None Seen) 08/17/23 03:24 Ur Renal Epithelial Cell <5 /HPF (None Seen) 08/17/23 03:24 Urine Bacteria None seen /HPF (<20) 08/17/23 03:24 Urine Mucus Slight /HPF (None Seen) 08/17/23 03:24 Urine Culture Reflexed Not needed 08/17/23 03:24 Urine Total Protein Negative (Negative) 08/17/23 03:24 Weight: 182 lb Wound Present: No Closed Surgical Incision Present: No Negative Pressure Wound Therapy Present: No Physician Update: WBC is elevated to 14. Chest x-ray to rule out pneumonia. She has right shoulder pain follow the stroke. SLUMS 26, BIMS 14. Aspirating thin liquids on modified barium swallow test. She is on nectar thick. 7' with platform walker and two assistance. Dependent with all ADLs. Will try electrical stimulation to the right upper extremity. 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 Please see the Rehabilitation Signature page for all necessary signatures.
--- NOTE | 2023-08-18 16:32 | RAD REPORT ---
EXAM DESCRIPTION: RAD - Chest Single View - 08/18/2023 4:26 pm CLINICAL HISTORY: cough Chest pain. COMPARISON: Chest Single View dated 01/31/2023 FINDINGS: Portable technique limits examination quality. The lungs are grossly clear. The heart is normal in size. No displaced fractures.Cervical spine hardw are plate. IMPRESSION: No acute intrathoracic process suspected.
[2023-08-18] MEDS ORDERED: LIDOCAINE VISCOUS 2% 10ML ORAL SOLN PO PRN (17:57)
[2023-08-18] MEDS: GLUCERNA SHAKE 237 ML CAN PO SCH (20:28)
[2023-08-19] MEDS: MELATONIN 3 MG TABLET PO PRN (00:54)
[2023-08-19] MEDS: PANTOPRAZOLE 40MG TABLET PO SCH (04:41)
[2023-08-19] MEDS: INSULIN REGULAR (HUMAN) 100 UNIT/ML SQ SCH ×4 (07:01→19:51)
[2023-08-19] MEDS: LEVOTHYROXINE SOD 0.05 MG TABLET PO SCH (07:17)
[2023-08-19 07:45] LABS: Absolute Lymphocytes (CBC) 2.6 K/uL (0.7-4.9); Hematocrit 34.9 % (36.0-45.0); Lymphocytes % 17.3 % (15.3-44.8); MPV 7.2 fL (7.6-11.3); Platelets 439 thou/uL (152-406); RBC Red Blood Cell Count 3.68 M/uL (3.86-4.86)
[2023-08-19 08:06] LABS: Potassium 4.1 mEq/L (3.5-5.1)
[2023-08-19] MEDS: LIDOCAINE 4% PATCH TOP SCH (09:37)
[2023-08-19] MEDS: ASPIRIN 81 MG CHEWABLE TABLET PO SCH (09:37)
[2023-08-19] MEDS: lisinopriL 20 MG TAB PO SCH (09:38)
[2023-08-19] MEDS: DOCUSATE NA 100 MG CAP PO SCH ×2 (09:38→19:50)
[2023-08-19] MEDS: APIXABAN 2.5 MG TABLET PO SCH ×2 (09:38→19:50)
[2023-08-19] MEDS: LORATADINE 10 MG TAB PO SCH (09:38)
[2023-08-19] MEDS: hydroCHLOROthiazide 25 MG TAB PO SCH (09:38)
[2023-08-19] MEDS: NYSTATIN PWDR 100000 UNIT/GM TOP SCH ×2 (09:39→19:51)
[2023-08-19] MEDS: MAGNESIUM OXIDE 400 MG TAB PO SCH (09:39)
[2023-08-19] MEDS: OXYBUTYNIN ER 5 MG TAB PO SCH ×2 (09:39→19:50)
[2023-08-19] MEDS: VENLAFAXINE HCL XR 75 MG CAP PO SCH (09:39)
[2023-08-19] MEDS: GLUCERNA SHAKE 237 ML CAN PO SCH ×2 (09:47→20:00)
[2023-08-19] MEDS: INSULIN 70/30 100 UNITS/ML SQ SCH ×2 (09:53→19:52)
[2023-08-19] MEDS ORDERED: NA CHLORIDE 0.9% 1,000 ML IV SCH (13:00)
[2023-08-19] MEDS: ATORVASTATIN 80 MG TAB PO SCH (19:50)
[2023-08-19] MEDS: TAMSULOSIN 0.4 MG SR CAP PO SCH (19:50)
[2023-08-19] MEDS: CIPROFLOXACIN HCL 500 MG TAB PO SCH (19:51)
[2023-08-20] MEDS: ACETAMINOPHEN 500 MG TAB PO PRN (01:37)
[2023-08-20] MEDS ORDERED: CHLORASEPTIC LOZENGES PO PRN (07:06)
[2023-08-20] MEDS: PANTOPRAZOLE 40MG TABLET PO SCH (07:10)
[2023-08-20] MEDS: LEVOTHYROXINE SOD 0.05 MG TABLET PO SCH (07:10)
[2023-08-20] MEDS: INSULIN REGULAR (HUMAN) 100 UNIT/ML SQ SCH ×4 (07:30→20:53)
[2023-08-20] MEDS ORDERED: levoFLOXacin 500 MG TAB PO SCH (08:00)
[2023-08-20] MEDS: NYSTATIN PWDR 100000 UNIT/GM TOP SCH ×2 (08:33→20:54)
[2023-08-20] MEDS: INSULIN 70/30 100 UNITS/ML SQ SCH ×2 (08:33→20:53)
[2023-08-20] MEDS: LIDOCAINE 4% PATCH TOP SCH (08:33)
[2023-08-20] MEDS: hydroCHLOROthiazide 25 MG TAB PO SCH (08:34)
[2023-08-20] MEDS: OXYBUTYNIN ER 5 MG TAB PO SCH ×2 (08:34→20:54)
[2023-08-20] MEDS: APIXABAN 2.5 MG TABLET PO SCH ×2 (08:35→20:55)
[2023-08-20] MEDS: ASPIRIN 81 MG CHEWABLE TABLET PO SCH (08:35)
[2023-08-20] MEDS: lisinopriL 20 MG TAB PO SCH (08:35)
[2023-08-20] MEDS: DOCUSATE NA 100 MG CAP PO SCH ×2 (08:36→20:00)
[2023-08-20] MEDS: MAGNESIUM OXIDE 400 MG TAB PO SCH (08:36)
[2023-08-20] MEDS: LORATADINE 10 MG TAB PO SCH (08:36)
[2023-08-20] MEDS: VENLAFAXINE HCL XR 75 MG CAP PO SCH (08:36)
[2023-08-20] MEDS: CIPROFLOXACIN HCL 500 MG TAB PO SCH ×2 (08:36→20:54)
[2023-08-20] MEDS: GLUCERNA SHAKE 237 ML CAN PO SCH ×2 (11:18→20:55)
[2023-08-20] MEDS: TAMSULOSIN 0.4 MG SR CAP PO SCH (20:54)
[2023-08-20] MEDS: ATORVASTATIN 80 MG TAB PO SCH (20:54)
[2023-08-20] MEDS: MELATONIN 3 MG TABLET PO PRN (20:55)
[2023-08-20 23:51] LABS: Absolute Lymphocytes (CBC) 3.7 K/uL (0.7-4.9); Hematocrit 31.2 % (36.0-45.0); Lymphocytes % 25.4 % (15.3-44.8); MCV 95.2 fL (80-100); MPV 7.4 fL (7.6-11.3); Platelets 403 thou/uL (152-406); RBC Red Blood Cell Count 3.27 M/uL (3.86-4.86)
[2023-08-20 23:53] LABS: Protime INR 1.23
[2023-08-21 00:05] LABS: ALT/SGPT 29 U/L (13-56); AST/SGOT 13 U/L (15-37); Albumin 2.6 g/dL (3.4-5.0); Alkaline Phosphatase 105 U/L (45-117); BUN Blood Urea Nitrogen 14 mg/dL (7-18); Bicarbonate 27 mEq/L (21-32); Bilirubin Total 0.2 mg/dL (0.2-1.0); Glomerular Filtration Rate 66 ml/min (=/>90); Glucose Level 198 mg/dL (74-106); Lipase 13 U/L (13-75); Potassium 4.3 mEq/L (3.5-5.1); Protein, Total 6.5 g/dL (6.4-8.2); Sodium Level 135 mEq/L (136-145)
[2023-08-21 00:07] LABS: Bilirubin Direct < 0.1 mg/dL (0-0.2); Bilirubin Indirect, Calculated ND mg/dL (0.2-0.8)
[2023-08-21] MEDS: LEVOTHYROXINE SOD 0.05 MG TABLET PO SCH (05:22)
[2023-08-21] MEDS: PANTOPRAZOLE 40MG TABLET PO SCH (06:37)
[2023-08-21] MEDS: INSULIN REGULAR (HUMAN) 100 UNIT/ML SQ SCH ×4 (07:30→20:37)
[2023-08-21] MEDS: DOCUSATE NA 100 MG CAP PO SCH ×2 (07:35→20:37)
[2023-08-21 07:40] LABS: Specific Gravity 1.012 (1.005-1.030); Urine Bacteria None Seen /HPF (<20); Urine Bilirubin NEGATIVE (Negative); Urine Blood Negative (Negative); Urine Clarity Clear (Clear); Urine Color Light-Yellow (Yellow); Urine Glucose NEGATIVE (Negative); Urine Mucus Slight /HPF (None Seen); Urine Protein NEGATIVE (Negative); Urine RBC <5 /HPF (None Seen); Urine Urobilinogen Normal (Normal); Urine Yeast with Hyphae Occasional /HPF (None Seen); Urine pH 6.5 (5.0-7.0)
[2023-08-21] MEDS: NYSTATIN PWDR 100000 UNIT/GM TOP SCH ×2 (07:55→20:37)
[2023-08-21] MEDS: LIDOCAINE 4% PATCH TOP SCH (07:55)
[2023-08-21] MEDS: lisinopriL 20 MG TAB PO SCH (07:56)
[2023-08-21] MEDS: hydroCHLOROthiazide 25 MG TAB PO SCH (07:56)
[2023-08-21] MEDS: APIXABAN 2.5 MG TABLET PO SCH ×2 (07:57→20:37)
[2023-08-21] MEDS: LORATADINE 10 MG TAB PO SCH (07:57)
[2023-08-21] MEDS: MAGNESIUM OXIDE 400 MG TAB PO SCH (07:57)
[2023-08-21] MEDS: ASPIRIN 81 MG CHEWABLE TABLET PO SCH (07:57)
[2023-08-21] MEDS: VENLAFAXINE HCL XR 75 MG CAP PO SCH (07:58)
[2023-08-21] MEDS: OXYBUTYNIN ER 5 MG TAB PO SCH ×2 (07:58→20:36)
[2023-08-21] MEDS: CIPROFLOXACIN HCL 500 MG TAB PO SCH ×2 (07:58→20:37)
[2023-08-21] MEDS: GLUCERNA SHAKE 237 ML CAN PO SCH ×2 (07:59→20:37)
[2023-08-21] MEDS: INSULIN 70/30 100 UNITS/ML SQ SCH ×2 (08:18→20:36)
[2023-08-21] MEDS ORDERED: FLEET ENEMA ADULT PR PRN (14:19)
[2023-08-21] MEDS ORDERED: NA CHLORIDE 0.9% 1,000 ML IV SCH (15:00)
--- NOTE | 2023-08-21 16:31 | RAD REPORT ---
EXAM DESCRIPTION: RAD - Abdomen 1 View (KUB) - 08/21/2023 4:24 pm CLINICAL HISTORY: Abdomen pain FINDINGS: The bowel gas pattern is unremarkable. A large amount of stool is present throughout the colon No significant abnormal calcification is displayed Right hip prosthesis in place
[2023-08-21] MEDS: TAMSULOSIN 0.4 MG SR CAP PO SCH (20:37)
[2023-08-21] MEDS: ATORVASTATIN 80 MG TAB PO SCH (20:37)
[2023-08-21] MEDS: CRANBERRY FRUIT EXTRACT 200 MG CAP PO SCH (20:37)
--- NOTE | 2023-08-21 22:22 | PN ---
Date of Progress Note: 08/21/2023 Time Of Service: 01:15 p.m. Subjective: Ms. Armenta is in bed. Family at bedside. She has no new complaints except there is constipation. She had diarrhea for about 3 days and the last bowel movement was around 4 days ago. She had a KUB test done for that and the study actually showed a large amount of retained stool witho ut a bowel obstructive pattern in the colon. She will a fleets enema done today. Otherwise, no new complaints. She is still waiting to see return of function of the right upper and lower extremity, w hich has zero movement in the right upper extremity and just subtle distal 1/5 trace movement in the right lower extremity. She has no fever or chills, myalgias, arthralgias, rash, headache, weight jesica nge. No active psychiatric issues despite her dense paresis. No other positives aside from the cons tipation is noted. Physical Examination: Vital Signs: Blood pressure 143/65, pulse 87, respiratory rate 18, temperature 97.2, O2 saturation 9 2%. Weight 182 pounds, height 5 feet, BMI 35.5. General: Ms. Armenta is resting in bed. She is in no acute distress. HEENT: She is normocephalic, atraumatic. Sclerae anicteric. Oropharynx pink and moist. Neck: Supple. Chest: Clear. Heart: Regular. Extremities: No significant edema in the extremities. Neurologic: In terms of neurological examination, zero movement proximally and distally in the right upper extremity. Proximally, the right lower extremity has zero movement, distally just barely movi ng her toes around 1/5. For dorsiflexion and plantar flexion, it is back and forth. In terms of sen sation, appears decreased on the left compared to the right. Otherwise, she has intact left upper an d lower extremity strength and incoordination. Laboratory Studies: Yesterday, white blood cell count was 14.4, decrease from 50.3. The neutrophil count decreased from 74.1 to 64.3. She is on antibiotics orally. Her INR was 1.23 two days ago. Ch emistries 2 days ago, sodium was slightly low at 135, potassium 4.3, chloride 103, carbon dioxide 27, BUN 14, creatinine 0.91, glucose ranged from 166 to 198. Her lactic acid level is normal at 1.7. P rocalcitonin normal at 0.05. Liver function studies unremarkable. Magnesium and calcium normal. He r urinalysis today did show 10-20 white blood cells, 75 esterase, occasional hyphae and few budding y east. Her COVID-19 test 2 days ago was negative. X-ray Imaging: As noted, KUB shows large amount retained stool. She had a chest x-ray done on the and a repeat study done yesterday. The report is still pending. The concern is from stroke she h as had potential aspiration pneumonia. She currently has had a barium swallow study that was done on the . This study showed aspiration of thin liquids and the patient is now on thickened diet and she had laryngeal penetration and that was not cleared. There was a cough and delayed swallowing ref genny, reduced laryngeal elevation, and it is recommended she had chin-tuck with thickened consistencie s. Medications: Tylenol 500 mg every 4 hours as needed; Eliquis 2.5 mg twice daily; aspirin 81 mg daily ; Lipitor 80 mg at bedtime; ciprofloxacin 500 mg twice daily; Colace 100 mg twice daily; Glucerna sha ke 237 mL twice daily; hydrochlorothiazide 25 mg daily; Novolin insulin 70/30 24 units at bedtime; Sy nthroid 0.05 mg daily; lidocaine patch apply topically daily; Prinivil 20 mg daily; Claritin 10 mg da nohelia; magnesium oxide 400 mg daily; melatonin 3 mg at bedtime; nystatin powder apply topically twice d aily as needed; Ditropan XL 10 mg twice daily; Protonix 40 mg daily; Senokot-S 2 at bedtime; Fleet en ahsan, which she will be receiving now, to be given as needed. She has a normal saline and will receiv e 50 cc an hour, Flomax 0.4 mg daily, throat lozenges every 4 hours as needed, and Effexor 75 mg dev y. Progress With Physical And Occupational Therapy: Today with physical therapy, she did multiple supin e-to-sit transfers with moderate assistance. She did have poor sitting balance at edge of bed, sit-t o-stand transfers in parallel bar with minimum assistance. She mobilized wheelchair 100 feet twice w ith minimum assistance, needed verbal cues to maneuver. With occupational therapy, maximum assistanc e for [id number]-vzznnadq. She did appear somewhat weaker today per the therapist. With her speech therapy, she did use diaphragmatic breathing techniques. She had vocalization, swallowing, complete d 6/10 attempts. 4/4 pictures recalled after 3 and 5 minutes. Assessment: Ms. Kathi Rodríguez is a 77-year-old patient with a left medullary lacunar infarct a ffecting her right body with some dysarthria and dysphagia, but with intact cognitive functioning exc ept for mild cognitive impairment or subtle cognitive impairment. She has comorbid diabetes mellitus type 2, dysphagia with hypertension, leukocytosis, anemia, and the salmonella infection for which jonas valencia is receiving antibiotics. Plan: 1.She will continue physical, occupational, and speech therapy for 3.5 hours, 5 out of 7 days. 2.For constipation, where large amount of stool is seen on KUB, we will have Fleet enema, Dulcolax s uppository, Senokot S. 3.For her urinary retention, Flomax. 4.For depression, venlafaxine. 5.For allergies, Claritin. 6.Prinivil, continue for hypertension. 7.Tylenol for pain. 8.She will continue Eliquis 2.5 mg twice daily for DVT prophylaxis, aspirin 81 mg daily for stroke r isk reduction, Lipitor 80 mg at bedtime for her dyslipidemia. She is continuing ciprofloxacin 500 mg twice daily from 05/23 to 05/25/2023. Comorbidities That Continue To Impact Rehabilitation: Currently, the significant dysphagia from her stroke is being worked through with different consistencies of food. In addition, she has elevated w bennie count, is on ciprofloxacin. We await cultures from urine to see if there is any evidence of wor sening urinary tract infection. She has had a workup for sepsis that is negative, negative procalcit onin, negative lactic acid. No fever. She is dehydrated and will be given IV fluids due to poor ora l intake and that is secondary to her stroke. LB/MODL Voice ID: [id number] Report ID: [id number]
[2023-08-21] MEDS: MELATONIN 3 MG TABLET PO PRN (23:38)
[2023-08-22] MEDS: LEVOTHYROXINE SOD 0.05 MG TABLET PO SCH (06:34)
[2023-08-22] MEDS: PANTOPRAZOLE 40MG TABLET PO SCH (06:34)
[2023-08-22] MEDS: INSULIN REGULAR (HUMAN) 100 UNIT/ML SQ SCH ×4 (07:15→20:14)
[2023-08-22 07:42] LABS: Absolute Lymphocytes (CBC) 2.5 K/uL (0.7-4.9); Hematocrit 28.9 % (36.0-45.0); Lymphocytes % 22.7 % (15.3-44.8); MCV 94.3 fL (80-100); MPV 6.9 fL (7.6-11.3); Platelets 371 thou/uL (152-406); RBC Red Blood Cell Count 3.06 M/uL (3.86-4.86)
[2023-08-22] MEDS: VENLAFAXINE HCL XR 75 MG CAP PO SCH (07:48)
[2023-08-22] MEDS: LIDOCAINE 4% PATCH TOP SCH (07:48)
[2023-08-22] MEDS: OXYBUTYNIN ER 5 MG TAB PO SCH ×2 (07:48→20:12)
[2023-08-22] MEDS: ASPIRIN 81 MG CHEWABLE TABLET PO SCH (07:48)
[2023-08-22] MEDS: CRANBERRY FRUIT EXTRACT 200 MG CAP PO SCH ×2 (07:48→20:12)
[2023-08-22] MEDS: lisinopriL 20 MG TAB PO SCH (07:48)
[2023-08-22] MEDS: LORATADINE 10 MG TAB PO SCH (07:48)
[2023-08-22] MEDS: hydroCHLOROthiazide 25 MG TAB PO SCH (07:49)
[2023-08-22] MEDS: DOCUSATE NA/SENNA CONC 1 TAB PO SCH ×2 (07:49→20:11)
[2023-08-22] MEDS: CIPROFLOXACIN HCL 500 MG TAB PO SCH ×2 (07:49→20:11)
[2023-08-22] MEDS: MAGNESIUM OXIDE 400 MG TAB PO SCH (07:49)
[2023-08-22] MEDS: DOCUSATE NA 100 MG CAP PO SCH ×2 (07:51→20:12)
[2023-08-22] MEDS: GLUCERNA SHAKE 237 ML CAN PO SCH ×2 (07:52→20:13)
[2023-08-22] MEDS: NYSTATIN PWDR 100000 UNIT/GM TOP SCH ×2 (07:52→20:00)
[2023-08-22] MEDS: APIXABAN 2.5 MG TABLET PO SCH ×2 (07:57→20:12)
--- NOTE | 2023-08-22 08:56 | HP ---
Date of Admission: 08/16/2023 Date of Service: 08/16/2023 Time Of Service: 12:30 p.m. Chief Complaint: "I had a stroke and my right side became weak." History Of Present Illness: Ms. Armenta is a 77-year-old patient with diabetes mellitus; cervical stenosis, status post decompression; and hysterectomy, who was admitted to [facility] on 08/05/2023 with nausea, vomiting, and diarrhea. She was diagnosed with salmonella infection, sensitive to Bactrim and she was treated with Bactrim and other antibiotics. While hospitalized, she was noted to have right-sided deficits and NIH Stroke Scale of 5. She was life flighted to [facility]. Her head CT scan was negative, and MRI identified a left medullary lacunar stroke secondary to small vessel ischemic disease. Echocardiogram showed an ejection fraction of 65%. She was treated with medical management of aspirin, Plavix, and statin. Prior to her stroke, which affected her right upper and lower extremities with significant dense paresis, she was able to ambulate with a rolling walker and later she regained functioning after a right total hip arthroplasty and was independent. Since the stroke, she was on maximum assistance for all mobilization. Unable to use the right upper extremity for any purpose, it is very densely weak. She has some difficulty swallowing and requires further evaluation, a barium swallow to give her the appropriate consistency to avoid aspiration. Also had leukocytosis potentially from salmonella infection, for which she is receiving Rocephin and Bactrim. Infectious Disease did see the patient while at [facility] and cleared her to discharge to inpatient rehabilitation as of August 14. She did have elevated white count, however, at 27,000; hemoglobin slightly down to 10.2; platelet count 385. She did require very aggressive daily evaluation and potential adjustments to her treatment program if she developed worsening infection, including aspiration pneumonia. As a result of needing aggressive rehabilitation and medical management, she was determined to be appropriate candidate for inpatient rehabilitation and is therefore admitted to inpatient rehabilitation unit for physical, occupational, and speech therapy. Past Medical History: As noted above. Surgical History: Lumpectomy, neck surgery, total hip arthroplasty on the right, and hysterectomy. Allergies: LEVOFLOXACIN, IODINE, DULAGLUTIDE, AND CANAGLIFLOZIN. X-ray/imaging: MRI of the brain without contrast on 08/12 showed very small relatively acute vascular insult on the left side of the medulla, nonhemorrhagic, extending to the left pontomedullary junction. Also, there was atrophy and chronic microvascular ischemic change. Head CT scan without contrast on 08/12: No acute intracranial hemorrhage identified. CT angiogram of the head with perfusion on August 11, shows unremarkable CT angiogram of neck and head. No evidence of large vessel occlusion. Medications: Tylenol 500 mg every 4 hours as needed, aspirin 81 mg daily, Lipitor 80 mg at bedtime, Plavix 75 mg daily, Colace 100 mg twice daily, HydroDIURIL 25 mg daily, NovoLog insulin 70/30, 7 units with breakfast and 4 units at bedtime plus an insulin sliding scale, levothyroxine 0.05 mg daily, lidocaine patch apply daily as needed, Prinivil 20 mg daily, Claritin 10 mg daily, melatonin 3 mg at bedtime, Ditropan XL 10 mg twice daily, Protonix 40 mg daily, Senokot-S 2 at bedtime, Effexor 75 mg daily. Family History: Noncontributory. Review of Systems: She denies any ongoing fevers or chills. No significant myalgias, arthralgias. She does have dense weakness in the right upper and lower extremities from her stroke and had some difficulty with swallowing. Food may be hung up when she tries to swallow. She will have a modified barium swallow study. Physical Examination: Vital Signs: Blood pressure 125/78, pulse 86, respiratory rate of 15, temperature 97.4, O2 saturation 97%. General: She is resting comfortably in her room. She is in no significant distress. HEENT: She appears normocephalic, atraumatic. Sclerae anicteric. Oropharynx moist. Neck: Supple. Chest: Clear. Neurologic: She has marked right upper and lower extremity weakness of 0-1/5. Her left upper and lower extremity strength is 5/5. Rehab And Medical Assessment And Plan: Ms. Rodríguez is admitted to the inpatient rehabilitation unit with impairment category 01, stroke. Her impairment group code is 01.2, right body involvement, left brain. Etiologic diagnosis: Left medullary lacunar infarct. Comorbidities: Decreased mobility; decreased physical functioning; diabetes mellitus type 2; dysphagia; hypertension; leukocytosis; right hemiparesis; anemia; and some infection, for which she has received antibiotic treatment. Plan: 1. She will have physical, occupational, speech therapy for 3-1/2 hours, 5 to 7 days. 2. Continue with diabetes management with Novolin 70/30 morning and afternoon as indicated. 3. Continue hypothyroidism treatment with Synthroid 0.05 mg daily. Continue with lidocaine patch, Tylenol, and other medications as appropriate for pain, may include gabapentin as needed. 4. Continue with Plavix and aspirin for stroke risk reduction. 5. Continue with Lipitor for dyslipidemia. 6. Prinivil for hypertension, melatonin for insomnia. Impact Of Comorbidities: Ms. Rodríguez did have right hip arthroplasty in the past and has had now dense paresis of the right upper and lower extremities. In addition, salmonella infection, it was somewhat of a challenge to address her rehabilitation. She will have the blood work as appropriate. Imaging of chest, abdomen and pelvis as appropriate. Urinalysis as well. She will have the barium swallow study to avoid aspiration and potential aspiration pneumonia. Rehab Specific Plan: Ms. Rodríguez will have physical, occupational, and speech therapy for 3-1/2 hours a day, 5 to 7 days. We will work on improving her ability to mobilize and transfer to a chair, a wheelchair, a walker, toilet to shower; to ambulate more than household distances; to go up and down at least 10 steps; and to perform cognitive functioning including receptive and expressive language with modified independence. Ms. Rodríguez and her family have good understanding of the process of admission to the inpatient rehabilitation facility and she will benefit from physical, occupational, and speech therapy. If need be, services from the infectious disease department; the pulmonary department, Dr. Zhao; hospitalist service; and also cardiology service will be consulted. Given her complex medical condition and risk of further complications, rehabilitation cannot be safely or effectively performed at a lower level of care such as [facility] home. Note that she will have Social Work evaluation and management for discharge planning, durable medical equipment, and addressing other needs of the patient and family. Barriers To Discharge: She does have recent salmonella infection, and will be watched closely for any re-infection. White count to be followed. If need be, IV antibiotics may be started. Currently, she has dense paresis of the upper and lower extremities, predominant side, making it difficult to perform daily activities. She will use the left upper and lower extremities to transfer, to do all of her activities as this is a significant change from her prior baseline normal functioning. Length Of Stay: Up to 3 weeks. Disposition: Potentially to go home with family or [facility] depending on how the patient does. Prognosis: Fair. Rehabilitation Goals: 1. Become supervision level with upper and lower body dressing, toileting, showering, donning and doffing of shoes. 2. Be able to with a yamil walker mobilize more than household distances, 250 feet with supervision. 3. She will propel a wheelchair 250 feet with supervision. 4. She will use a rolling walker to ambulate household distances, at least 200 feet. 5. Potentially go up and down 10 steps with holding onto side handrails. 6. Perform cognitive functioning with modified independence. 7. Eat and swallow without aspiration. 8. Manage her comorbid condition medications with supervision. The above goals were reviewed with Ms. Rodríguez and she is in agreement. By signing this document, I acknowledge I have personally performed a full physical examination on Ms. Kathi Rodríguez no later than 24 hours after admission to the inpatient rehabilitation facility and determined that she is able to tolerate the above course of treatment at an intensive level for a reasonable period of time. A detailed individualized plan of care for her will be completed by hospital day 4 based on preadmission screening, history and physical, and therapy evaluations. VENKATESH Voice ID: [id number] [email or web address]
[2023-08-22] MEDS: INSULIN 70/30 100 UNITS/ML SQ SCH ×2 (09:49→20:12)
[2023-08-22] MEDS: BISACODYL 10 MG RECTAL SUPP PR PRN (10:54)
--- NOTE | 2023-08-22 19:34 | RAD REPORT ---
EXAM DESCRIPTION: RAD - Chest Single View - 08/20/2023 10:55 pm CLINICAL HISTORY: R/o sepsis COMPARISON: None. TECHNIQUE: XR CHEST 1 VIEW 08/20/2023 12:00 AM NEWSPAPER EDITOR FINDINGS: Cardiac silhouette is normal in size. Lungs are clear without consolidation, atelectasis, mass or edema. There is no pleural effusion. There is no pneumothorax. There are no acute osseous fin dings. IMPRESSION: Clear lungs. Electronically signed by: Duran Cueva MD 08/20/2023 11:29 PM NEWSPAPER EDITOR Due to temporary technical issues with the PACS/Fluency reporting system, reports are being signed by the in house radiologists without review as a courtesy to insure prompt reporting. The interpreting radiologist is fully responsible for the content of the report.
[2023-08-22] MEDS: MELATONIN 3 MG TABLET PO PRN (20:12)
[2023-08-22] MEDS: TAMSULOSIN 0.4 MG SR CAP PO SCH (20:14)
[2023-08-22] MEDS: ATORVASTATIN 80 MG TAB PO SCH (20:14)
--- NOTE | 2023-08-22 22:11 | PN ---
Date of Progress Note: 08/22/2023 Time Of Service: 1:20 p.m. Subjective: Ms. rAmenta is in the gym doing therapy. She actually has some improvement in the rig ht shoulder movement and she can do a little bit of pronation and supination of this very subtle, how ever, of the right upper extremity. She has some subtle proximal return of movement in the right low er extremity and she is happy thus far, although small gains. She has also reported a good bowel mov ement and she was constipated for about 5 days. Review of Systems: No fevers, chills, nausea, vomiting, myalgias, or arthralgias. No psychiatric issues. Physical Examination: Vital Signs: Blood pressure 131/68, pulse of 81, respiratory rate of 17, temperature 97.1, oxygen sa turation 93%. General: Ms. Rodríguez again is sitting in a chair in the gym area. HEENT: She appears normocephalic, atraumatic. Sclerae are anicteric. Oropharynx pink and moist. Neck: Supple. Chest: Clear. Heart: Regular. Extremities: Show no significant edema, cyanosis, or clubbing. Neurological: She has in the proximal right upper extremity around 1/5, distally also 1/5. In the r ight lower extremity, similarly so proximally and distally 0 to 1/5. Sensation decreased on the righ t compared to the left upper and lower extremity. Medications: Medications have been reviewed and remained unchanged. Laboratory Studies: White blood cell count today is normal at 10.8, hemoglobin of 9.6, neutrophils 6 5.8. Her chemistries show a glucose ranged from 74 to 172. Urinalysis from yesterday, occasional hy phae, few budding yeast, 10-20 white blood cells, 75 esterase, otherwise normal. X-ray/imaging: No new x-rays or imaging. Progress made with physical and occupational along with speech therapy. Today, she completed gait tr aining with a bilateral platform walking about 8 feet with maximum assistance, multiple [id number]-sd-[id number] transfers done with moderate to maximum assistance. In addition, she did mobilize the wheelchair 100 feet with minimum assistance. Lze-dg-xphez transfers in the parallel bars with minimum assistance. With speech therapy, she uses incentive spirometry 6 times with diaphragmatic breathing, diffuse max imum phonation time of 7 seconds. She was given ice chips with no overt signs of aspiration. Assessment: Ms. Kathi Rodríguez is a 77-year-old patient with a left medullary infarct, for whic h she has right upper and lower extremity weakness, numbness, dysarthria, and dysphagia. She also butcher s mild cognitive impairment. She has diabetes mellitus type 2, hypertension, improved leukocytosis, and some completed antibiotics. Plan: 1.Continue with physical, occupational, and speech therapy for 3.5 hours, 5 of 7 days. 2.Continue with all of her comorbid condition medications including venlafaxine for depression, Clar itin for allergies, Flomax for urinary retention, Prinivil for hypertension, Tylenol for pain, Eliqui s for DVT prophylaxis, and she finished up Cipro from August 22 to the . Comorbidities That Continue To Impact Rehabilitation: She has stroke as noted, for which she has den se paresis. She still has a risk of aspiration and she is working with Speech Therapy. She is now a ble to manage ice chips, but is still requiring thickened liquids and will likely have a repeat bariu m swallow study as she begins to recover. NINO/HODAN Voice ID: [id number] Report ID: [id number]
[2023-08-23] MEDS: PANTOPRAZOLE 40MG TABLET PO SCH (06:47)
[2023-08-23] MEDS: LEVOTHYROXINE SOD 0.05 MG TABLET PO SCH (06:47)
[2023-08-23] MEDS: INSULIN REGULAR (HUMAN) 100 UNIT/ML SQ SCH ×4 (06:58→20:29)
[2023-08-23] MEDS: CRANBERRY FRUIT EXTRACT 200 MG CAP PO SCH ×2 (07:17→20:26)
[2023-08-23] MEDS: ASPIRIN 81 MG CHEWABLE TABLET PO SCH (07:17)
[2023-08-23] MEDS: OXYBUTYNIN ER 5 MG TAB PO SCH ×2 (07:17→20:36)
[2023-08-23] MEDS: LORATADINE 10 MG TAB PO SCH (07:17)
[2023-08-23] MEDS: DOCUSATE NA/SENNA CONC 1 TAB PO SCH ×3 (07:17→22:49)
[2023-08-23] MEDS: CIPROFLOXACIN HCL 500 MG TAB PO SCH ×2 (07:17→20:25)
[2023-08-23] MEDS: MAGNESIUM OXIDE 400 MG TAB PO SCH (07:18)
[2023-08-23] MEDS: LIDOCAINE 4% PATCH TOP SCH (07:18)
[2023-08-23] MEDS: VENLAFAXINE HCL XR 75 MG CAP PO SCH (07:18)
[2023-08-23] MEDS: lisinopriL 20 MG TAB PO SCH (07:18)
[2023-08-23] MEDS: hydroCHLOROthiazide 25 MG TAB PO SCH (07:18)
[2023-08-23] MEDS: APIXABAN 2.5 MG TABLET PO SCH ×2 (07:18→20:25)
[2023-08-23] MEDS: DOCUSATE NA 100 MG CAP PO SCH ×2 (07:20→20:26)
[2023-08-23] MEDS: GLUCERNA SHAKE 237 ML CAN PO SCH ×2 (07:20→20:29)
[2023-08-23] MEDS: NYSTATIN PWDR 100000 UNIT/GM TOP SCH ×2 (07:22→20:24)
[2023-08-23] MEDS: ACETAMINOPHEN 500 MG TAB PO PRN ×2 (07:45→20:44)
[2023-08-23] MEDS: INSULIN 70/30 100 UNITS/ML SQ SCH ×2 (09:52→20:24)
[2023-08-23] MEDS: MELATONIN 3 MG TABLET PO SCH (20:25)
[2023-08-23] MEDS: TAMSULOSIN 0.4 MG SR CAP PO SCH (20:25)
[2023-08-23] MEDS: ATORVASTATIN 80 MG TAB PO SCH (20:25)
[2023-08-24] MEDS: BISACODYL 10 MG RECTAL SUPP PR PRN (04:53)
[2023-08-24] MEDS: LEVOTHYROXINE SOD 0.05 MG TABLET PO SCH (05:28)
[2023-08-24] MEDS: INSULIN REGULAR (HUMAN) 100 UNIT/ML SQ SCH ×4 (06:42→19:22)
[2023-08-24] MEDS: PANTOPRAZOLE 40MG TABLET PO SCH (06:46)
[2023-08-24] MEDS: DOCUSATE NA/SENNA CONC 1 TAB PO SCH ×2 (06:54→19:23)
[2023-08-24] MEDS: MAGNESIUM OXIDE 400 MG TAB PO SCH (06:54)
[2023-08-24] MEDS: CRANBERRY FRUIT EXTRACT 200 MG CAP PO SCH ×2 (06:54→19:23)
[2023-08-24] MEDS: ASPIRIN 81 MG CHEWABLE TABLET PO SCH (06:55)
[2023-08-24] MEDS: VENLAFAXINE HCL XR 75 MG CAP PO SCH (06:55)
[2023-08-24] MEDS: LORATADINE 10 MG TAB PO SCH (06:55)
[2023-08-24] MEDS: DOCUSATE NA 100 MG CAP PO SCH ×2 (06:56→19:23)
[2023-08-24] MEDS: LIDOCAINE 4% PATCH TOP SCH (06:56)
[2023-08-24] MEDS: GLUCERNA SHAKE 237 ML CAN PO SCH ×2 (06:57→19:23)
[2023-08-24] MEDS: hydroCHLOROthiazide 25 MG TAB PO SCH (07:09)
[2023-08-24] MEDS: APIXABAN 2.5 MG TABLET PO SCH ×2 (07:09→19:23)
[2023-08-24] MEDS: lisinopriL 20 MG TAB PO SCH ×2 (08:00→08:29)
[2023-08-24] MEDS: OXYBUTYNIN ER 5 MG TAB PO SCH ×2 (08:00→19:23)
[2023-08-24 08:18] LABS: Absolute Lymphocytes (CBC) 2.2 K/uL (0.7-4.9); Hematocrit 30.6 % (36.0-45.0); Lymphocytes % 25.1 % (15.3-44.8); MCV 95.1 fL (80-100); MPV 6.9 fL (7.6-11.3); Platelets 399 thou/uL (152-406); RBC Red Blood Cell Count 3.22 M/uL (3.86-4.86)
[2023-08-24] MEDS: INSULIN 70/30 100 UNITS/ML SQ SCH ×2 (08:20→19:22)
[2023-08-24] MEDS: CIPROFLOXACIN HCL 500 MG TAB PO SCH (08:21)
[2023-08-24 10:10] LABS: Albumin 2.5 g/dL (3.4-5.0); Magnesium 1.8 mg/dL (1.6-2.4); Prealbumin 14.2 mg/dL (20-40)
[2023-08-24] MEDS: NYSTATIN OINT 15 GM TUBE TOP SCH ×2 (12:43→19:22)
[2023-08-24] MEDS: ACETAMINOPHEN 500 MG TAB PO PRN (16:17)
[2023-08-24] MEDS: MELATONIN 3 MG TABLET PO SCH (19:25)
[2023-08-24] MEDS: TAMSULOSIN 0.4 MG SR CAP PO SCH (19:25)
[2023-08-24] MEDS: ATORVASTATIN 80 MG TAB PO SCH (19:25)
--- NOTE | 2023-08-24 22:40 | PN ---
Date of Progress Note: 08/24/2023 Time Of Service: 1 p.m. Subjective: Ms. Rodríguez is sitting in her room. Her is at the bedside. She has no new co mplaints. Despite her significant weakness, she says she is mildly depressed of mood and is actually missing her 2 dogs at home. Review of Systems: No fevers, chills, nausea, vomiting. No significant myalgias or arthralgias except mild muscle spasm s. No rash and mild features consistent with depression. Physical Examination: Vital Signs: Blood pressure 114/57, pulse of 91, respiratory rate 16, temperature 97, oxygen saturat ion 94%. General: Ms. Armenta is sitting in a chair beside the bed. HEENT: She is normocephalic, atraumatic. Sclerae are anicteric. Oropharynx is pink and moist. Neck: Supple. Chest: Clear. Heart: Regular. Extremities: Show no significant edema, cyanosis, or clubbing. Neurological: She has a symmetric face with good excursions. The right upper extremity has dense pa resis, very subtle movement in the shoulder, and around trace to 1/5 in terms of hand pronation and s upination. Zero finger opening and closing and wrist extension and flexion. Right lower extremity a lso 0-1 proximally and distally and decreased sensation on the right compared to left side. Laboratory Studies: White blood cell count 8.8, hemoglobin 10.3, platelets 399. Sodium 139, potassi um 4.0, chloride 105, carbon dioxide 31, BUN 14, creatinine 0.74. Glucose today ranged from 105 to 2 38. Calcium 9.1, magnesium 1.8, albumin 2.5. Prealbumin 14.2. X-ray/imaging: None. Medications: Medications have been reviewed and remained unchanged. Progress With Physical And Occupational Therapy: Today, with physical therapy, she completed bed mob ility with supine to sit and turning with moderate assistance. She did tolerate multiple sit-to-marv d and transfers in parallel bars with minimum assistance. She was up in the wheelchair with spouse i n the room as the therapist came in. She was aware of her current level of functioning and is mildly depressed of mood as noted. She also ambulated 12 feet twice with maximum assistance with a rolling walker. With speech therapy, she did trials of regular solids with adequate mastication, bolus form ation, and transition of the bolus posteriorly. She had adequate oral clearing of the bolus. No ove rt signs of aspiration. With toileting she was dependent, grooming setup assistance, contact guard a ssistance going from toilet to the chair to toilet using grab bars. Overall, she is making fair prog ress with physical, occupational, and speech therapy, but still has a long way to go as she has dense paresis in the right upper extremity, making it very difficult to recover recently. In addition, jonas valencia has some features of depression and antidepressant will be started along with magnesium to decrease muscle spasms. Assessment: Ms. Rodríguez is a 77-year-old patient in the rehabilitation unit with a left medullary infarct producing dense paresis in the right upper and lower extremity along with numbness, dysarthri a, dysphagia. She has mild cognitive impairment, diabetes mellitus type 2, hypertension, improved le ukocytosis. She also is depressed. Plan: 1.Continue physical, occupational, and speech therapy for 3.5 hours, 5 to 7 days. 2.Venlafaxine for depression. May consider fluoxetine. 3.Flomax for urinary retention. 4.Prinivil for hypertension. 5.Continue ciprofloxacin until the , which is today. 6.Eliquis for DVT prophylaxis. 7.Claritin for allergies. Comorbidities That Continue To Impact Rehabilitation: Her depression is impacting her rehabilitation somewhat. It was discussed that the patient's 2 daughters may be brought to the hospital and she ma y have a therapy session outside, would like to moving the wheelchair on the curb and she may interac t with her dogs from home. She is also improving her swallowing currently on thickened liquids and c hopped meats and speech pathology may repeat her swallow examination next week to see if there is a potential for advancing her to another stage of diet towards normal. LB/MODL Voice ID: [id number] Report ID: [id number]
[2023-08-25] MEDS: LEVOTHYROXINE SOD 0.05 MG TABLET PO SCH (05:07)
[2023-08-25] MEDS: PANTOPRAZOLE 40MG TABLET PO SCH (06:22)
[2023-08-25] MEDS: INSULIN REGULAR (HUMAN) 100 UNIT/ML SQ SCH ×4 (07:30→19:41)
[2023-08-25] MEDS: CRANBERRY FRUIT EXTRACT 200 MG CAP PO SCH ×2 (07:43→19:35)
[2023-08-25] MEDS: INSULIN 70/30 100 UNITS/ML SQ SCH ×3 (07:43→19:45)
[2023-08-25] MEDS: NYSTATIN OINT 15 GM TUBE TOP SCH ×2 (07:43→19:36)
[2023-08-25] MEDS: hydroCHLOROthiazide 25 MG TAB PO SCH (07:44)
[2023-08-25] MEDS: DOCUSATE NA/SENNA CONC 1 TAB PO SCH ×2 (07:44→19:36)
[2023-08-25] MEDS: lisinopriL 20 MG TAB PO SCH (07:44)
[2023-08-25] MEDS: DOCUSATE NA 100 MG CAP PO SCH ×2 (07:45→19:35)
[2023-08-25] MEDS: VENLAFAXINE HCL XR 75 MG CAP PO SCH (07:45)
[2023-08-25] MEDS: APIXABAN 2.5 MG TABLET PO SCH ×2 (07:45→19:36)
[2023-08-25] MEDS: MAGNESIUM OXIDE 400 MG TAB PO SCH (07:45)
[2023-08-25] MEDS: OXYBUTYNIN ER 5 MG TAB PO SCH ×2 (07:45→19:35)
[2023-08-25] MEDS: ASPIRIN 81 MG CHEWABLE TABLET PO SCH (07:46)
[2023-08-25] MEDS: LORATADINE 10 MG TAB PO SCH (07:46)
[2023-08-25] MEDS: LIDOCAINE 4% PATCH TOP SCH (07:46)
[2023-08-25] MEDS: GLUCERNA SHAKE 237 ML CAN PO SCH ×2 (07:48→19:36)
--- NOTE | 2023-08-25 13:13 | P.RH.PN ---
Estimated Length of Stay: 22 Expected Discharge Date: 09/05/23 Discharge Disposition Plan: Home Family Support: Yes Fdc Goal: Mobility, Transfers, Self Care Vital Signs: Last Vital Signs Temp 96.9 F 08/25/23 08:00 Pulse 80 08/25/23 07:44 Resp 12 08/25/23 07:29 BP 136/60 08/25/23 07:44 Pulse Ox 96 08/25/23 07:29 Laboratory: Laboratory Last Values WBC 8.80 thou/uL (4.3-10.9) 08/24/23 08:06 RBC 3.22 M/uL (3.86-4.86) L 08/24/23 08:06 Hgb 10.3 g/dL (12.0-15.0) L 08/24/23 08:06 Hct 30.6 % (36.0-45.0) L 08/24/23 08:06 MCV 95.1 fL (80-100) 08/24/23 08:06 MCH 31.8 pg (27.0-35.0) 08/24/23 08:06 MCHC 33.5 g/dL (32.0-36.0) 08/24/23 08:06 RDW 14.5 % (12.1-15.2) 08/24/23 08:06 Plt Count 399 thou/uL (152-406) 08/24/23 08:06 MPV 6.9 fL (7.6-11.3) L 08/24/23 08:06 Neutrophils % 65.4 % (41.7-73.7) 08/24/23 08:06 Lymphocytes % 25.1 % (15.3-44.8) 08/24/23 08:06 Monocytes % 7.3 % (3.3-12.3) 08/24/23 08:06 Eosinophils % 1.7 % (0-4.4) 08/24/23 08:06 Basophils % 0.5 % (0-1.3) 08/24/23 08:06 Absolute Neutrophils 5.8 K/uL (1.8-8.0) 08/24/23 08:06 Absolute Lymphocytes 2.2 K/uL (0.7-4.9) 08/24/23 08:06 Absolute Monocytes 0.6 K/uL (0.1-1.3) 08/24/23 08:06 Absolute Eosinophils 0.2 K/uL (0-0.5) 08/24/23 08:06 Absolute Basophils 0.0 K/uL (0-0.5) 08/24/23 08:06 PT 13.4 SECONDS (9.5-12.5) H 08/20/23 23:05 INR 1.23 08/20/23 23:05 APTT 33.8 SECONDS (24.3-36.9) 08/20/23 23:05 Sodium 139 mEq/L (136-145) 08/24/23 08:06 Potassium 4.0 mEq/L (3.5-5.1) 08/24/23 08:06 Chloride 105 mEq/L (98-107) 08/24/23 08:06 Carbon Dioxide 31 mEq/L (21-32) 08/24/23 08:06 Anion Gap 7.0 mEq/L (5.0-15.0) 08/24/23 08:06 BUN 14 mg/dL (7-18) 08/24/23 08:06 Creatinine 0.74 mg/dL (0.55-1.02) 08/24/23 08:06 Est GFR (CKD-EPI) 84 ml/min (=/>90) L 08/24/23 08:06 Glucose 127 mg/dL (74-106) H 08/24/23 08:06 POC Glucose 224 mg/dL (65-120) H 08/25/23 11:26 Lactic Acid 1.7 mmol/L (0.4-2.0) 08/20/23 23:05 Calcium 9.1 mg/dL (8.5-10.1) 08/24/23 08:06 Magnesium 1.8 mg/dL (1.6-2.4) 08/24/23 08:06 Total Bilirubin 0.2 mg/dL (0.2-1.0) 08/20/23 23:05 Direct Bilirubin < 0.1 mg/dL (0-0.2) 08/20/23 23:05 Indirect Bilirubin ND 08/20/23 23:05 AST 13 U/L (15-37) L 08/20/23 23:05 ALT 29 U/L (13-56) 08/20/23 23:05 Alkaline Phosphatase 105 U/L (45-117) 08/20/23 23:05 Serum Total Protein 6.5 g/dL (6.4-8.2) 08/20/23 23:05 Albumin 2.5 g/dL (3.4-5.0) L 08/24/23 08:06 Globulin 3.9 g/dL (2.3-3.5) H 08/20/23 23:05 Albumin/Globulin Ratio 0.7 (1.1-1.8) L 08/20/23 23:05 Prealbumin 14.2 mg/dL (20-40) L 08/24/23 08:06 Lipase 13 U/L (13-75) 08/20/23 23:05 Procalcitonin < 0.05 ng/mL (<0.050) 08/21/23 00:00 Urine Color Light-yellow (Yellow) 08/21/23 07:00 Urine Clarity Clear (Clear) 08/21/23 07:00 Urine pH 6.5 (5.0-7.0) 08/21/23 07:00 Ur Specific [place] 1.012 (1.005-1.030) 08/21/23 07:00 Glucose (UA)(Auto) Negative (Negative) 08/21/23 07:00 Urine Ketones Negative (Negative) 08/21/23 07:00 Urine Blood Negative (Negative) 08/21/23 07:00 Urine Nitrite Negative (Negative) 08/21/23 07:00 Urine Bilirubin Negative (Negative) 08/21/23 07:00 Urine Urobilinogen Normal (Normal) 08/21/23 07:00 Ur Leukocyte Esterase 75 Jcarlos/uL (Negative) H 08/21/23 07:00 Urine RBC <5 /HPF (None Seen) 08/21/23 07:00 Urine WBC 10-20 /HPF (<5) H 08/21/23 07:00 Ur Squamous Epith Cells <5 /HPF (None Seen) 08/21/23 07:00 Ur Renal Epithelial Cell <5 /HPF (None Seen) 08/17/23 03:24 Urine Bacteria None seen /HPF (<20) 08/21/23 07:00 Urine Mucus Slight /HPF (None Seen) 08/21/23 07:00 Ur Yeast w Hyphae Occasional /HPF (None Seen) H 08/21/23 07:00 Urine Yeast (Budding) Few /HPF (None Seen) H 08/21/23 07:00 Urine Culture Reflexed Reflexed 08/21/23 07:00 Urine Total Protein Negative (Negative) 08/21/23 07:00 SARS-CoV-2 Rap RNA(RT-PCR) Negative (NEGATIVE) 08/19/23 08:30 Weight: 182 lb Wound Present: No Closed Surgical Incision Present: No Negative Pressure Wound Therapy Present: No Physician Update: Labs reviewed and are stable. Pain is well managed. Right sided weakness is still very significant will need 24 hour care. Very slow progress with cognition. Still on nector thick liquids and crushed solids. Mod isaiah with transfers. 12' with dual platform walker. Very poor balance. Comment: Protective foam to sacrum. Summary: Patient's care plan and supervisor telephone information goals have been reviewed and revised as necessary. Please see the Rehabilitation Signature page for all necessary signatures.
[2023-08-25] MEDS: ACETAMINOPHEN 500 MG TAB PO PRN (19:38)
[2023-08-25] MEDS: ATORVASTATIN 80 MG TAB PO SCH (19:40)
[2023-08-25] MEDS: TAMSULOSIN 0.4 MG SR CAP PO SCH (19:40)
[2023-08-25] MEDS: MELATONIN 3 MG TABLET PO SCH (19:41)
[2023-08-26] MEDS: PANTOPRAZOLE 40MG TABLET PO SCH (06:27)
[2023-08-26] MEDS: LEVOTHYROXINE SOD 0.05 MG TABLET PO SCH (06:27)
[2023-08-26] MEDS: INSULIN REGULAR (HUMAN) 100 UNIT/ML SQ SCH ×4 (07:30→20:13)
[2023-08-26] MEDS: INSULIN 70/30 100 UNITS/ML SQ SCH ×2 (07:41→20:14)
[2023-08-26] MEDS: LIDOCAINE 4% PATCH TOP SCH (07:42)
[2023-08-26] MEDS: lisinopriL 20 MG TAB PO SCH (07:42)
[2023-08-26] MEDS: hydroCHLOROthiazide 25 MG TAB PO SCH (07:43)
[2023-08-26] MEDS: DOCUSATE NA/SENNA CONC 1 TAB PO SCH ×2 (07:43→20:11)
[2023-08-26] MEDS: OXYBUTYNIN ER 5 MG TAB PO SCH ×2 (07:43→20:10)
[2023-08-26] MEDS: MAGNESIUM OXIDE 400 MG TAB PO SCH (07:44)
[2023-08-26] MEDS: ASPIRIN 81 MG CHEWABLE TABLET PO SCH (07:44)
[2023-08-26] MEDS: CRANBERRY FRUIT EXTRACT 200 MG CAP PO SCH ×2 (07:44→20:10)
[2023-08-26] MEDS: DOCUSATE NA 100 MG CAP PO SCH ×2 (07:44→20:10)
[2023-08-26] MEDS: VENLAFAXINE HCL XR 75 MG CAP PO SCH (07:44)
[2023-08-26] MEDS: NYSTATIN OINT 15 GM TUBE TOP SCH ×2 (07:44→20:11)
[2023-08-26] MEDS: LORATADINE 10 MG TAB PO SCH (07:45)
[2023-08-26] MEDS: APIXABAN 2.5 MG TABLET PO SCH ×2 (07:45→20:10)
[2023-08-26] MEDS: GLUCERNA SHAKE 237 ML CAN PO SCH ×2 (07:46→20:10)
[2023-08-26] MEDS: MELATONIN 3 MG TABLET PO SCH (20:13)
[2023-08-26] MEDS: TAMSULOSIN 0.4 MG SR CAP PO SCH (20:13)
[2023-08-26] MEDS: ATORVASTATIN 80 MG TAB PO SCH (20:13)
[2023-08-27] MEDS: LEVOTHYROXINE SOD 0.05 MG TABLET PO SCH (06:25)
[2023-08-27] MEDS: PANTOPRAZOLE 40MG TABLET PO SCH (06:26)
[2023-08-27] MEDS: INSULIN REGULAR (HUMAN) 100 UNIT/ML SQ SCH ×4 (07:30→20:21)
[2023-08-27] MEDS: INSULIN 70/30 100 UNITS/ML SQ SCH ×2 (08:00→20:21)
[2023-08-27] MEDS: GLUCERNA SHAKE 237 ML CAN PO SCH ×2 (08:01→20:00)
[2023-08-27] MEDS: LIDOCAINE 4% PATCH TOP SCH (08:01)
[2023-08-27] MEDS: CRANBERRY FRUIT EXTRACT 200 MG CAP PO SCH ×2 (08:02→20:22)
[2023-08-27] MEDS: NYSTATIN OINT 15 GM TUBE TOP SCH ×2 (08:02→14:06)
[2023-08-27] MEDS: lisinopriL 20 MG TAB PO SCH (08:02)
[2023-08-27] MEDS: hydroCHLOROthiazide 25 MG TAB PO SCH (08:02)
[2023-08-27] MEDS: MAGNESIUM OXIDE 400 MG TAB PO SCH (08:03)
[2023-08-27] MEDS: APIXABAN 2.5 MG TABLET PO SCH ×2 (08:03→20:22)
[2023-08-27] MEDS: OXYBUTYNIN ER 5 MG TAB PO SCH ×2 (08:03→20:23)
[2023-08-27] MEDS: DOCUSATE NA 100 MG CAP PO SCH ×2 (08:04→20:22)
[2023-08-27] MEDS: VENLAFAXINE HCL XR 75 MG CAP PO SCH (08:04)
[2023-08-27] MEDS: LORATADINE 10 MG TAB PO SCH (08:04)
[2023-08-27] MEDS: ASPIRIN 81 MG CHEWABLE TABLET PO SCH (08:04)
[2023-08-27] MEDS: DOCUSATE NA/SENNA CONC 1 TAB PO SCH ×2 (08:04→20:00)
[2023-08-27] MEDS: TAMSULOSIN 0.4 MG SR CAP PO SCH ×2 (12:16→20:23)
[2023-08-27] MEDS: NYSTATIN PWDR 100000 UNIT/GM TOP SCH ×2 (13:00→20:00)
[2023-08-27] MEDS ORDERED: NYSTATIN PWDR 100000 UNIT/GM TOP SCH (20:00)
[2023-08-27] MEDS: MELATONIN 3 MG TABLET PO SCH (20:22)
[2023-08-27] MEDS: ATORVASTATIN 80 MG TAB PO SCH (20:23)
[2023-08-27] MEDS: ACETAMINOPHEN 500 MG TAB PO PRN (20:23)
[2023-08-28] MEDS: LEVOTHYROXINE SOD 0.05 MG TABLET PO SCH (05:20)
[2023-08-28] MEDS: PANTOPRAZOLE 40MG TABLET PO SCH (06:44)
[2023-08-28] MEDS: INSULIN REGULAR (HUMAN) 100 UNIT/ML SQ SCH ×4 (07:30→19:49)
[2023-08-28] MEDS: lisinopriL 20 MG TAB PO SCH (07:39)
[2023-08-28] MEDS: LIDOCAINE 4% PATCH TOP SCH (07:39)
[2023-08-28] MEDS: OXYBUTYNIN ER 5 MG TAB PO SCH ×2 (07:40→19:49)
[2023-08-28] MEDS: hydroCHLOROthiazide 25 MG TAB PO SCH (07:40)
[2023-08-28] MEDS: DOCUSATE NA/SENNA CONC 1 TAB PO SCH ×2 (07:40→19:50)
[2023-08-28] MEDS: VENLAFAXINE HCL XR 75 MG CAP PO SCH (07:41)
[2023-08-28] MEDS: TAMSULOSIN 0.4 MG SR CAP PO SCH ×2 (07:41→19:49)
[2023-08-28] MEDS: ASPIRIN 81 MG CHEWABLE TABLET PO SCH (07:41)
[2023-08-28] MEDS: CRANBERRY FRUIT EXTRACT 200 MG CAP PO SCH ×2 (07:41→19:49)
[2023-08-28] MEDS: DOCUSATE NA 100 MG CAP PO SCH ×2 (07:41→19:49)
[2023-08-28] MEDS: MAGNESIUM OXIDE 400 MG TAB PO SCH (07:41)
[2023-08-28] MEDS: GLUCERNA SHAKE 237 ML CAN PO SCH ×2 (07:42→19:50)
[2023-08-28] MEDS: LORATADINE 10 MG TAB PO SCH (07:42)
[2023-08-28] MEDS: APIXABAN 2.5 MG TABLET PO SCH ×2 (07:42→19:49)
[2023-08-28] MEDS: NYSTATIN OINT 15 GM TUBE TOP SCH ×2 (07:43→19:49)
[2023-08-28] MEDS: INSULIN 70/30 100 UNITS/ML SQ SCH ×3 (08:00→19:48)
[2023-08-28 09:31] LABS: Specific Gravity 1.007 (1.005-1.030); Urine Bacteria <20 /HPF (<20); Urine Bilirubin NEGATIVE (Negative); Urine Blood Negative (Negative); Urine Clarity Clear (Clear); Urine Color Colorless (Yellow); Urine Glucose NEGATIVE (Negative); Urine Protein NEGATIVE (Negative); Urine RBC <5 /HPF (None Seen); Urine Urobilinogen Normal (Normal); Urine pH 7.5 (5.0-7.0)
--- NOTE | 2023-08-28 16:15 | P.CNS ---
Date of Consult: 08/28/23 Consult for vulvar itching. HPI: Ms. Rodríguez is a 77 yo female with h/o T2DM admitted for rehab after treatment for salmonella infection and CVA with residual right sided deficits. Complaining of vulvar itching, irritation, and discomfort for past few days. Has been started on nystatin cream BID which is helping somewhat but symptoms still very bothersome. Exam: awake and alert erythema surrounding bilateral labia down to perianal area, no visualized discharge however pelvic exam not done Assessment/plan 1. Candidal intertrigo: recent abx use, also has T2DM. Continue nystatin cream BID. Diflucan 150mg now and again in 72 hours. 2. T2DM: glucose monitoring 3. CVA: On eliquis, atorvastatin Thank you for the consult. Please call with any questions.
[2023-08-28] MEDS ORDERED: FLUCONAZOLE 100 MG TAB PO ONE (17:00)
--- NOTE | 2023-08-28 19:41 | PN ---
Date of Progress Note: 08/28/2023 Time Of Service: 1 p.m. Subjective: Ms. Rodríguez is in her room doing therapy with physical therapist. She is sitting in a chair. She does report slight improvement in burning and itching and discharge from the vaginal are a and she was seen by Dr. Ventura's physician or assistant today and she was diagnosed with Stephanie int ertrigo and does recommend continuing the nystatin cream along with Diflucan 150 mg dose now and then dose in 72 hours. Otherwise, continue with glucose monitoring and current treatment for DVT prophyl axis. Review of Systems: As noted, some mild burning and irritation with urination, improving slightly, but no fevers, chills, nausea, vomiting. No significant myalgias, arthralgias, muscle spasms. No other systems review pos itives. Physical Examination: Vital Signs: Blood pressure 124/56, pulse 71, respiratory rate 16, temperature 97.3, oxygen saturati on 94%. Weight 180 pounds, height 5 feet, BMI 35.3. General: Ms. Rodríguez is resting comfortably in a chair. HEENT: She is normocephalic, atraumatic. Sclerae anicteric. Oropharynx moist. Neck: Supple. Chest: Clear. Heart: Regular. Neuro: In terms of strength, right upper extremity, she has at the shoulders 0, there is 1/5 for int ernal rotation of the forearm, 0 in hand flexion and extension and finger flexion and extension. In the lower extremity, distally no movement appreciated, although there is maybe trace muscle contracti on around 1/5 on the left side. Strength is 5/5. Sensation intact in the right compared to the left side per patient and this is on objective testing. Laboratory Studies: Her blood sugars today ranged from 79 to 160. Urinalysis today showed a trace b udding yeast, 25 esterase, 7.5 pH. Medications: Again, medications have been adjusted to include Diflucan 150 mg now and in 72 hours. Otherwise, she continues medications for stool softening, for urine flow. She actually had Flomax in creased to twice a day 0.4 mg from once a day, venlafaxine continued for depression at 75 mg daily, t hroat lozenges for cough, Protonix for GE reflux. She has Ditropan for urinary retention as well, Cl aritin for her seasonal allergies, Prinivil 20 mg daily for hypertension, Synthroid 0.05 mg daily for hypothyroidism. She has Novolin 70/30 insulin 24 units at bedtime and 27 units at breakfast. She h as Glucerna 237 mL twice daily, Colace 100 mg twice daily, Lipitor 80 mg at bedtime, aspirin 81 mg da nohelia, Eliquis 2.5 mg twice daily, and Tylenol 500 mg as needed every 4 hours. Progress Made With Physical And Occupational Along With Speech Therapy: Today with physical therapy, she ambulated 30 feet with a platform walker and 15 feet with another platform walker with maximum a ssistance required. She mobilized in wheelchair 100 feet twice with left upper extremity and left lo wer extremity. With speech therapy, she has diaphragmatic breathing to sustain phonation for a maxim um of 12 seconds, which improved from 9 seconds last week. She tolerated thin liquid trials workup w ith no overt signs of aspiration, which is improved from last week. With occupational therapy, maxim um assistance for upper and lower body dressing, dependent for lower body dressing, max assist for sh owering, able to wash 4/10 body parts. She does have significant fatigue, needs help drying. Regarding the progress overall for her physical therapy, the dense paresis in the right upper extremi ty making it very difficult to have a very good progression at this point in terms of her ability to manage activities on her own. She will likely require at least several weeks, perhaps months of ther apy to begin to improve her ability to mobilize, transfer, and at this point may not be possible for her to go home with family as that need for help is likely to continue to be max assist for basic act ivities including transfers, dressing, and performing activities of daily living. Assessment: Ms. 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 She has preservation of comprehension, speech, and some dysphagia and dysarthria. She has diabetes mellitus type 2, hypertension, leukocytosis, fungal vagin al infection and is on Diflucan. Plan: 1.Continue with Diflucan as recommended by Dr. Ventura. 2.Continue with venlafaxine for depression. 3.Flomax for urinary retention and increase twice daily. 4.Prinivil for hypertension. 5.She finished ciprofloxacin for bacterial infection and is on antifungal. She has Eliquis for DVT prophylaxis. She has Claritin for her allergies and Tylenol for pain and Senokot and Colace for cons tipation along with melatonin as needed at night for insomnia. Comorbidities That Continue To Impact Rehabilitation: Currently, the fungal urinary tract infection is treated with Diflucan, is improving. In addition, she has dense paresis in the right upper and lo wer extremity making it very difficult for her to mobilize efficiently and transfer efficiently and t hat will likely require ongoing therapy for many perhaps months. She is also having difficulty with swallowing and will likely require again significant help to improve that to the point where she can eat a regular diet and not see as if they are currently. NINO/HODAN Voice ID: [id number] Report ID: [id number]
[2023-08-28] MEDS: ACETAMINOPHEN 500 MG TAB PO PRN (19:49)
[2023-08-28] MEDS: ATORVASTATIN 80 MG TAB PO SCH (19:51)
[2023-08-28] MEDS: MELATONIN 3 MG TABLET PO SCH (19:51)
[2023-08-28] MEDS ORDERED: BACLOFEN 10 MG TAB PO PRN (21:36)
[2023-08-28] MEDS: TRAMADOL HCL 50 MG TAB PO PRN (21:53)
[2023-08-29] MEDS: LEVOTHYROXINE SOD 0.05 MG TABLET PO SCH (05:20)
[2023-08-29] MEDS: PANTOPRAZOLE 40MG TABLET PO SCH (06:41)
[2023-08-29] MEDS: INSULIN REGULAR (HUMAN) 100 UNIT/ML SQ SCH ×4 (07:30→20:02)
[2023-08-29] MEDS: LIDOCAINE 4% PATCH TOP SCH (07:35)
[2023-08-29] MEDS: GLUCERNA SHAKE 237 ML CAN PO SCH ×2 (07:36→20:00)
[2023-08-29] MEDS: DOCUSATE NA/SENNA CONC 1 TAB PO SCH ×2 (07:36→20:03)
[2023-08-29] MEDS: NYSTATIN OINT 15 GM TUBE TOP SCH ×2 (07:36→20:02)
[2023-08-29] MEDS: VENLAFAXINE HCL XR 75 MG CAP PO SCH (07:37)
[2023-08-29] MEDS: OXYBUTYNIN ER 5 MG TAB PO SCH ×2 (07:37→20:03)
[2023-08-29] MEDS: APIXABAN 2.5 MG TABLET PO SCH ×2 (07:37→20:03)
[2023-08-29] MEDS: DOCUSATE NA 100 MG CAP PO SCH ×2 (07:37→20:00)
[2023-08-29] MEDS: CRANBERRY FRUIT EXTRACT 200 MG CAP PO SCH ×2 (07:37→20:03)
[2023-08-29] MEDS: LORATADINE 10 MG TAB PO SCH (07:37)
[2023-08-29] MEDS: lisinopriL 20 MG TAB PO SCH (07:38)
[2023-08-29] MEDS: TAMSULOSIN 0.4 MG SR CAP PO SCH ×2 (07:38→20:03)
[2023-08-29] MEDS: hydroCHLOROthiazide 25 MG TAB PO SCH (07:38)
[2023-08-29] MEDS: MAGNESIUM OXIDE 400 MG TAB PO SCH ×2 (07:39→20:04)
[2023-08-29] MEDS: ASPIRIN 81 MG CHEWABLE TABLET PO SCH (07:40)
[2023-08-29] MEDS: INSULIN 70/30 100 UNITS/ML SQ SCH ×2 (08:38→20:01)
[2023-08-29] MEDS: BACLOFEN 10 MG TAB PO SCH (14:37)
--- NOTE | 2023-08-29 18:41 | PN ---
Date of Progress Note: 08/29/2023 Time Of Service: 12:30 p.m. Subjective: Ms. Rodríguez is in the gym doing therapy. She is making slow progress, but more in the lower than upper extremity, able to move the leg in terms of extension slightly against gravity. No dorsiflexion or plantar flexion of the foot yet. No hip elevation yet and no distal movement in the right lower extremity. The right proximal is very subtle around 1 of the 5 movement. Despite this, she is still doing well. She is now again on Diflucan for a Stephanie infection in the vulvar area an d that is managed by Dr. Ventura and her physician social science research assistant. Review of Systems: No fevers or chills. No nausea or vomiting. Improved pain. No significant pelvic pain or pain in t he vulvar region. Physical Examination: Vital Signs: Blood pressure 115/51, pulse 76, respiratory rate of 16, temperature 97.3, oxygen satur ation 95%. General: Ms. Rodríguez again is resting comfortably. HEENT: She is normocephalic, atraumatic. Sclerae anicteric. Oropharynx pink, moist. Neck: Supple. Chest: Clear. Heart: Regular. Extremities: Right upper extremity and lower extremity again dense paresis, at most 2/5 to 3 in the right lower extremity and traced proximally in the right upper extremity. Sensation intact in the ri ght compared to left side. Coordination is still in fact the right upper extremity too weak to reall y assess any aspect of coordination. Laboratory Studies: Her blood sugars today ranged from 123 to 193 and there is a pending urine cultu re done on 08/28. Medications: Medications have been reviewed and remain unchanged. She did receive baclofen yesterda y 5 mg and did help a lot with her spasms in the right lower extremity. She was slightly sleepy this morning after the baclofen and we will hold baclofen again tonight and see how well she does. She i s on magnesium as well in addition to Effexor for depression. Progress Made With Physical And Occupational Therapy: Today, she was able to mobilize a wheelchair 1 00 feet with minimal assistance. She completed gait training, walked 37 feet with bilateral platform walker. With occupational therapy, minimum assist for upper body dressing and maximal assistance fo r lower body dressing. With speech therapy today, she used verbal rehearsal to recall 4/4 unrelated pictures after 5-minute delay without cues. Completed sentences with 2 blanks appropriately with 70% accuracy, convergent thinking use with moderate verbal cues with 80% accuracy. Overall, slow progress with physical, occupational, and speech therapy; however, this is expected giv en the significant stroke affecting the right body and left brain. Assessment: Ms. Rodríguez is a 77-year-old patient in rehabilitation with a significant stroke produ cing dense paresis in the right upper and lower extremities. She also has dysarthria, dysphagia, and mild expressive aphasia. She has comorbid hypertension, diabetes mellitus, fungal vaginal infection , leukocytosis. Plan: 1.Continue with physical, occupational, and speech therapy for 3.5 hours, 5 out of 7 days. 2.Continue with management of the vaginal infection with Diflucan. Continue venlafaxine for depress ion, Flomax for urinary retention, Prinivil for hypertension, Eliquis for DVT prophylaxis, Claritin f or allergies, Tylenol for pain, Senokot and Colace for constipation. She has Novolin insulin 70/30 f or her diabetes mellitus, 27 units in the morning and 24 units at night, Synthroid for hypothyroidism , lidocaine patch for pain, magnesium oxide for muscle spasms and baclofen 0.5 mg to be given for her muscle spasms in the right upper and lower extremity. She has a Fleet enema as needed for constipat ion. Comorbidities That Continue To Impact Rehabilitation: Currently, muscle spasms following stroke can be helped by baclofen, but she does have daytime sleepiness. Magnesium will be used and baclofen may be done every other day. In addition, her vulvar infection is improving with Diflucan and she has d epression treated with venlafaxine, but still has features of depression and antidepressants often take 1 month to be more effective. NINO/SCOTTL Voice ID: [id number] Report ID: [id number]
[2023-08-29] MEDS: MELATONIN 3 MG TABLET PO SCH (20:03)
[2023-08-29] MEDS: ATORVASTATIN 80 MG TAB PO SCH (20:04)
[2023-08-29] MEDS: ACETAMINOPHEN 500 MG TAB PO PRN (20:04)
[2023-08-30] MEDS: LEVOTHYROXINE SOD 0.05 MG TABLET PO SCH (05:25)
[2023-08-30] MEDS: PANTOPRAZOLE 40MG TABLET PO SCH (07:00)
[2023-08-30] MEDS: INSULIN REGULAR (HUMAN) 100 UNIT/ML SQ SCH ×4 (07:04→20:30)
[2023-08-30] MEDS: LIDOCAINE 4% PATCH TOP SCH (07:45)
[2023-08-30] MEDS: DOCUSATE NA/SENNA CONC 1 TAB PO SCH ×2 (07:47→20:28)
[2023-08-30] MEDS: VENLAFAXINE HCL XR 75 MG CAP PO SCH (07:47)
[2023-08-30] MEDS: CRANBERRY FRUIT EXTRACT 200 MG CAP PO SCH ×2 (07:47→20:28)
[2023-08-30] MEDS: LORATADINE 10 MG TAB PO SCH (07:47)
[2023-08-30] MEDS: OXYBUTYNIN ER 5 MG TAB PO SCH ×2 (07:47→20:55)
[2023-08-30] MEDS: APIXABAN 2.5 MG TABLET PO SCH ×2 (07:48→20:28)
[2023-08-30] MEDS: TAMSULOSIN 0.4 MG SR CAP PO SCH ×2 (07:48→20:29)
[2023-08-30] MEDS: DOCUSATE NA 100 MG CAP PO SCH ×2 (07:49→20:29)
[2023-08-30] MEDS: ASPIRIN 81 MG CHEWABLE TABLET PO SCH (07:49)
[2023-08-30] MEDS: NYSTATIN OINT 15 GM TUBE TOP SCH ×2 (07:50→20:30)
[2023-08-30] MEDS: MAGNESIUM OXIDE 400 MG TAB PO SCH ×2 (07:50→20:29)
[2023-08-30] MEDS: hydroCHLOROthiazide 25 MG TAB PO SCH (07:53)
[2023-08-30] MEDS: GLUCERNA SHAKE 237 ML CAN PO SCH ×2 (08:00→20:30)
[2023-08-30] MEDS: INSULIN 70/30 100 UNITS/ML SQ SCH ×2 (08:30→20:31)
[2023-08-30] MEDS: lisinopriL 20 MG TAB PO SCH (10:42)
[2023-08-30] MEDS: BACLOFEN 10 MG TAB PO SCH (15:46)
[2023-08-30] MEDS: ATORVASTATIN 80 MG TAB PO SCH (20:27)
[2023-08-30] MEDS: MELATONIN 3 MG TABLET PO SCH (20:27)
[2023-08-31 04:01] LABS: Absolute Lymphocytes (CBC) 3.1 K/uL (0.7-4.9); Hematocrit 29.2 % (36.0-45.0); Lymphocytes % 31.3 % (15.3-44.8); MCV 93.4 fL (80-100); MPV 7.1 fL (7.6-11.3); Platelets 459 thou/uL (152-406); RBC Red Blood Cell Count 3.13 M/uL (3.86-4.86)
[2023-08-31 04:17] LABS: Albumin 2.5 g/dL (3.4-5.0); Magnesium 1.9 mg/dL (1.6-2.4); Potassium 3.8 mEq/L (3.5-5.1); Prealbumin 16.2 mg/dL (20-40)
[2023-08-31] MEDS: LEVOTHYROXINE SOD 0.05 MG TABLET PO SCH (05:51)
[2023-08-31] MEDS: PANTOPRAZOLE 40MG TABLET PO SCH (06:47)
[2023-08-31] MEDS: INSULIN REGULAR (HUMAN) 100 UNIT/ML SQ SCH ×4 (07:00→21:00)
[2023-08-31] MEDS: OXYBUTYNIN ER 5 MG TAB PO SCH (08:00)
[2023-08-31] MEDS: GLUCERNA SHAKE 237 ML CAN PO SCH ×2 (08:00→19:52)
[2023-08-31] MEDS: TAMSULOSIN 0.4 MG SR CAP PO SCH ×2 (08:00→19:50)
[2023-08-31] MEDS: LIDOCAINE 4% PATCH TOP SCH (08:33)
[2023-08-31] MEDS: APIXABAN 2.5 MG TABLET PO SCH ×2 (08:34→19:49)
[2023-08-31] MEDS: hydroCHLOROthiazide 25 MG TAB PO SCH (08:34)
[2023-08-31] MEDS: NYSTATIN OINT 15 GM TUBE TOP SCH ×2 (08:34→19:51)
[2023-08-31] MEDS: DOCUSATE NA/SENNA CONC 1 TAB PO SCH ×2 (08:34→19:48)
[2023-08-31] MEDS: CRANBERRY FRUIT EXTRACT 200 MG CAP PO SCH ×2 (08:34→19:48)
[2023-08-31] MEDS: VENLAFAXINE HCL XR 75 MG CAP PO SCH (08:35)
[2023-08-31] MEDS: LORATADINE 10 MG TAB PO SCH (08:35)
[2023-08-31] MEDS: DOCUSATE NA 100 MG CAP PO SCH ×2 (08:35→19:49)
[2023-08-31] MEDS: ASPIRIN 81 MG CHEWABLE TABLET PO SCH (08:36)
[2023-08-31] MEDS: MAGNESIUM OXIDE 400 MG TAB PO SCH ×2 (09:05→19:49)
[2023-08-31] MEDS: INSULIN 70/30 100 UNITS/ML SQ SCH ×2 (09:21→19:54)
[2023-08-31] MEDS: lisinopriL 20 MG TAB PO SCH (12:28)
[2023-08-31] MEDS: BACLOFEN 10 MG TAB PO SCH (14:58)
[2023-08-31] MEDS ORDERED: FLUCONAZOLE 100 MG TAB PO ONE (17:00)
[2023-08-31] MEDS: ATORVASTATIN 80 MG TAB PO SCH (19:48)
[2023-08-31] MEDS: MELATONIN 3 MG TABLET PO SCH (19:52)
--- NOTE | 2023-08-31 22:19 | PN ---
Date of Progress Note: 08/31/2023 Time Of Service: 1:35 p.m. Subjective: Ms. Rodríguez is in the room in between therapy sessions. She despite her circumstances of significant weakness in the right upper and lower extremity from her stroke still not appearing v aishwarya depressed, but still not very enthusiastic. She denies any new complaints. She has no further c omplaints of any vaginal discomfort with urination. She is completing treatment for a heike infect ion with Diflucan and ketoconazole. Review of Systems: No fevers, chills, nausea, vomiting, myalgias, arthralgias. No rash. No psychiatric complaints. No other systems review positivity. Objective: Vital Signs: Blood pressure 118/58, pulse 82, respiratory rate 16, temperature 97.7, oxy gen saturation 95%. General: Ms. Rodríguez is sitting in a chair. HEENT: She appears normocephalic, atraumatic. Sclerae anicteric. Oropharynx moist, pink. Neck: Supple. Chest: Clear. Heart: Regular. Extremities: No significant clubbing, cyanosis, or edema. Neurological: She still has a dense paresis in the right upper and lower extremity, very subtle prox imal movement noted. No distal movement in the right upper extremity. Lower extremity, no movement appreciated proximally and distally. She does report intact sensation in the right compared to the l eft side. This is essentially unchanged from her prior evaluation yesterday. Laboratory Studies: White blood cell count 9.9, hemoglobin 10.1, platelets 459. Sodium 140, potassi um 3.8, chloride 105, carbon dioxide 27, BUN 21, creatinine 0.81, glucose ranged from 113 to 223, violeta cium 8.8, magnesium 1.9, albumin 2.5, prealbumin 16.2. X-ray/imaging: No new x-rays or imaging. Medications: Have been reviewed and are unchanged. Progress Made With Her Physical And Occupational Therapy: Today with physical therapy, she completed multiple fwn-vl-dqrao transfers and worked on standing posture with minimum assistance. She attempt ed to take a step but needed maximum assistance to complete a single step. She also worked in gait t raining in the parallel bars with moderate assistance for a right leg . [facility] done with minimum assistance of contact guard assistance. With speech therapy, incentive spirometry was done. She did improve measurements to 2 L from 1 L with incentive spirometry and macy phragmatic breathing. She did swallow small sips of thin liquids with no overt signs of aspiration 4 ounces were cleared. Speech therapist upgraded her to thin liquids from nectar thick liquids. She is making fair progress overall with her physical, occupational, and speech therapy. Still requi ring significant help as the right-sided weakness is very dense and not improving much. Assessment: Ms. 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 She has dysarth ana luisa, dysphagia, mild expressive aphasia. She has diabetes mellitus type 2, hypertension, and treated for a candidal urinary tract infection. She has depression as well. Plan: 1.Continue with physical, occupational, and speech therapy for 3.5 hours, 5 of 7 days. 2.Continue with her Flomax for urinary retention, Prinivil for hypertension, Eliquis for DVT prophyl axis, Claritin for allergies, venlafaxine for depression. Patient with Diflucan for her vaginal infe ction, melatonin for insomnia, Synthroid for hypothyroidism, aspirin for stroke risk reduction. Comorbidities That Continue To Impact Rehabilitation: Currently, the urinary tract infection is impr oving and is less of an impact as she is denying any significant pain. She has depression from her c ircumstance with very dense paresis of the right side and she is on antidepressants, but still having significant issues from that respect. Otherwise, blood sugars are better controlled. Blood pressure is also better controlled. LB/MODL Voice ID: [id number] Report ID: [id number]
[2023-09-01] MEDS: PANTOPRAZOLE 40MG TABLET PO SCH (06:40)
[2023-09-01] MEDS: LEVOTHYROXINE SOD 0.05 MG TABLET PO SCH (06:40)
[2023-09-01] MEDS: INSULIN REGULAR (HUMAN) 100 UNIT/ML SQ SCH ×4 (06:48→20:47)
[2023-09-01] MEDS: APIXABAN 2.5 MG TABLET PO SCH ×2 (07:27→20:43)
[2023-09-01] MEDS: VENLAFAXINE HCL XR 75 MG CAP PO SCH (07:27)
[2023-09-01] MEDS: ASPIRIN 81 MG CHEWABLE TABLET PO SCH (07:27)
[2023-09-01] MEDS: LIDOCAINE 4% PATCH TOP SCH (07:27)
[2023-09-01] MEDS: TAMSULOSIN 0.4 MG SR CAP PO SCH ×2 (07:28→20:43)
[2023-09-01] MEDS: DOCUSATE NA/SENNA CONC 1 TAB PO SCH ×2 (07:30→20:44)
[2023-09-01] MEDS: CRANBERRY FRUIT EXTRACT 200 MG CAP PO SCH ×2 (07:30→20:43)
[2023-09-01] MEDS: GLUCERNA SHAKE 237 ML CAN PO SCH ×3 (07:31→20:43)
[2023-09-01] MEDS: MAGNESIUM OXIDE 400 MG TAB PO SCH ×2 (07:31→20:43)
[2023-09-01] MEDS: DOCUSATE NA 100 MG CAP PO SCH ×3 (07:31→20:42)
[2023-09-01] MEDS: NYSTATIN OINT 15 GM TUBE TOP SCH ×2 (07:32→20:43)
[2023-09-01] MEDS: LORATADINE 10 MG TAB PO SCH (07:32)
[2023-09-01] MEDS: hydroCHLOROthiazide 25 MG TAB PO SCH ×2 (08:00→13:30)
[2023-09-01] MEDS: lisinopriL 20 MG TAB PO SCH ×2 (08:00→13:30)
[2023-09-01] MEDS: INSULIN 70/30 100 UNITS/ML SQ SCH ×2 (08:39→20:48)
--- NOTE | 2023-09-01 13:12 | P.RH.PN ---
Estimated Length of Stay: 22 Expected Discharge Date: 09/06/23 Discharge Disposition Plan: Home Family Support: Yes Fpc Goal: Mobility, Transfers, Self Care Vital Signs: Last Vital Signs Temp 96.8 F 09/01/23 07:48 Pulse 78 09/01/23 08:00 Resp 14 09/01/23 07:48 BP 119/58 L 09/01/23 08:00 Pulse Ox 96 09/01/23 07:48 Laboratory: Laboratory Last Values WBC 9.90 thou/uL (4.3-10.9) 08/31/23 03:10 RBC 3.13 M/uL (3.86-4.86) L 08/31/23 03:10 Hgb 10.1 g/dL (12.0-15.0) L 08/31/23 03:10 Hct 29.2 % (36.0-45.0) L 08/31/23 03:10 MCV 93.4 fL (80-100) 08/31/23 03:10 MCH 32.4 pg (27.0-35.0) 08/31/23 03:10 MCHC 34.7 g/dL (32.0-36.0) 08/31/23 03:10 RDW 14.4 % (12.1-15.2) 08/31/23 03:10 Plt Count 459 thou/uL (152-406) H 08/31/23 03:10 MPV 7.1 fL (7.6-11.3) L 08/31/23 03:10 Neutrophils % 54.9 % (41.7-73.7) 08/31/23 03:10 Lymphocytes % 31.3 % (15.3-44.8) 08/31/23 03:10 Monocytes % 9.7 % (3.3-12.3) 08/31/23 03:10 Eosinophils % 3.7 % (0-4.4) 08/31/23 03:10 Basophils % 0.4 % (0-1.3) 08/31/23 03:10 Absolute Neutrophils 5.4 K/uL (1.8-8.0) 08/31/23 03:10 Absolute Lymphocytes 3.1 K/uL (0.7-4.9) 08/31/23 03:10 Absolute Monocytes 1.0 K/uL (0.1-1.3) 08/31/23 03:10 Absolute Eosinophils 0.4 K/uL (0-0.5) 08/31/23 03:10 Absolute Basophils 0.0 K/uL (0-0.5) 08/31/23 03:10 PT 13.4 SECONDS (9.5-12.5) H 08/20/23 23:05 INR 1.23 08/20/23 23:05 APTT 33.8 SECONDS (24.3-36.9) 08/20/23 23:05 Sodium 140 mEq/L (136-145) 08/31/23 03:10 Potassium 3.8 mEq/L (3.5-5.1) 08/31/23 03:10 Chloride 105 mEq/L (98-107) 08/31/23 03:10 Carbon Dioxide 27 mEq/L (21-32) 08/31/23 03:10 Anion Gap 11.8 mEq/L (5.0-15.0) 08/31/23 03:10 BUN 21 mg/dL (7-18) H 08/31/23 03:10 Creatinine 0.81 mg/dL (0.55-1.02) 08/31/23 03:10 Est GFR (CKD-EPI) 76 ml/min (=/>90) L 08/31/23 03:10 Glucose 113 mg/dL (74-106) H 08/31/23 03:10 POC Glucose 179 mg/dL (65-120) H 09/01/23 11:37 Lactic Acid 1.7 mmol/L (0.4-2.0) 08/20/23 23:05 Calcium 8.8 mg/dL (8.5-10.1) 08/31/23 03:10 Magnesium 1.9 mg/dL (1.6-2.4) 08/31/23 03:10 Total Bilirubin 0.2 mg/dL (0.2-1.0) 08/20/23 23:05 Direct Bilirubin < 0.1 mg/dL (0-0.2) 08/20/23 23:05 Indirect Bilirubin ND 08/20/23 23:05 AST 13 U/L (15-37) L 08/20/23 23:05 ALT 29 U/L (13-56) 08/20/23 23:05 Alkaline Phosphatase 105 U/L (45-117) 08/20/23 23:05 Serum Total Protein 6.5 g/dL (6.4-8.2) 08/20/23 23:05 Albumin 2.5 g/dL (3.4-5.0) L 08/31/23 03:10 Globulin 3.9 g/dL (2.3-3.5) H 08/20/23 23:05 Albumin/Globulin Ratio 0.7 (1.1-1.8) L 08/20/23 23:05 Prealbumin 16.2 mg/dL (20-40) L 08/31/23 03:10 Lipase 13 U/L (13-75) 08/20/23 23:05 Procalcitonin < 0.05 ng/mL (<0.050) 08/21/23 00:00 Urine Color Colorless (Yellow) 08/28/23 08:40 Urine Clarity Clear (Clear) 08/28/23 08:40 Urine pH 7.5 (5.0-7.0) H 08/28/23 08:40 Ur Specific [place] 1.007 (1.005-1.030) 08/28/23 08:40 Glucose (UA)(Auto) Negative (Negative) 08/28/23 08:40 Urine Ketones Negative (Negative) 08/28/23 08:40 Urine Blood Negative (Negative) 08/28/23 08:40 Urine Nitrite Negative (Negative) 08/28/23 08:40 Urine Bilirubin Negative (Negative) 08/28/23 08:40 Urine Urobilinogen Normal (Normal) 08/28/23 08:40 Ur Leukocyte Esterase 25 Jcarlos/uL (Negative) H 08/28/23 08:40 Urine RBC <5 /HPF (None Seen) 08/28/23 08:40 Urine WBC <5 /HPF (<5) 08/28/23 08:40 Ur Squamous Epith Cells <5 /HPF (None Seen) 08/28/23 08:40 Ur Renal Epithelial Cell <5 /HPF (None Seen) 08/17/23 03:24 Urine Bacteria <20 /HPF (<20) 08/28/23 08:40 Urine Mucus Slight /HPF (None Seen) 08/21/23 07:00 Ur Yeast w Hyphae Occasional /HPF (None Seen) H 08/21/23 07:00 Urine Yeast (Budding) Trace /HPF (None Seen) H 08/28/23 08:40 Urine Culture Reflexed Not needed 08/28/23 08:40 Urine Total Protein Negative (Negative) 08/28/23 08:40 SARS-CoV-2 Rap RNA(RT-PCR) Negative (NEGATIVE) 08/19/23 08:30 Weight: 180 lb 14.4 oz Wound Present: No Closed Surgical Incision Present: No Negative Pressure Wound Therapy Present: No Physician Update: Making fair overall progress but better with speech now advanced to thin liquids plus soft and bite size diet. Labs reviewed and are stable. Treated fungal vaginal infection. Met 4/4 short and 3/3 supervisor intermediates goals. Met 3/4 short term goals. Min to mod for transfers. Walking 39' with max assistance. Wheelchair 100' with min assistance. Dependent with toileting. Mod assistance with ADLs. Comment: Protective foam to sacrum Summary: Patient's care plan and supervisor intermediates goals have been reviewed and revised as necessary. Please see the Rehabilitation Signature page for all necessary signatures.
[2023-09-01] MEDS: BACLOFEN 10 MG TAB PO SCH (15:08)
[2023-09-01] MEDS: ATORVASTATIN 80 MG TAB PO SCH (20:47)
[2023-09-01] MEDS: MELATONIN 3 MG TABLET PO SCH (20:47)
[2023-09-01] MEDS: ROSUVASTATIN 10 MG TAB PO SCH (20:47)
[2023-09-01] MEDS: TRAMADOL HCL 50 MG TAB PO PRN (20:49)
[2023-09-01] MEDS: ROPINIROLE HCL 0.25 MG TAB PO SCH ×2 (20:49→21:00)
[2023-09-02] MEDS: LEVOTHYROXINE SOD 0.05 MG TABLET PO SCH (07:11)
[2023-09-02] MEDS: PANTOPRAZOLE 40MG TABLET PO SCH (07:11)
[2023-09-02] MEDS: INSULIN REGULAR (HUMAN) 100 UNIT/ML SQ SCH ×4 (07:12→20:17)
[2023-09-02] MEDS: LIDOCAINE 4% PATCH TOP SCH (07:30)
[2023-09-02] MEDS: APIXABAN 2.5 MG TABLET PO SCH ×2 (07:30→20:15)
[2023-09-02] MEDS: VENLAFAXINE HCL XR 75 MG CAP PO SCH (07:30)
[2023-09-02] MEDS: LORATADINE 10 MG TAB PO SCH (07:31)
[2023-09-02] MEDS: DOCUSATE NA/SENNA CONC 1 TAB PO SCH ×2 (07:31→20:16)
[2023-09-02] MEDS: CRANBERRY FRUIT EXTRACT 200 MG CAP PO SCH ×2 (07:31→20:16)
[2023-09-02] MEDS: MAGNESIUM OXIDE 400 MG TAB PO SCH ×2 (07:31→20:16)
[2023-09-02] MEDS: TAMSULOSIN 0.4 MG SR CAP PO SCH ×2 (07:31→20:16)
[2023-09-02] MEDS: ASPIRIN 81 MG CHEWABLE TABLET PO SCH (07:31)
[2023-09-02] MEDS ORDERED: DOCUSATE NA 100 MG CAP PO PRN (07:32)
[2023-09-02] MEDS: GLUCERNA SHAKE 237 ML CAN PO SCH ×2 (07:41→20:00)
[2023-09-02] MEDS: INSULIN 70/30 100 UNITS/ML SQ SCH ×2 (09:28→20:15)
[2023-09-02] MEDS: NYSTATIN OINT 15 GM TUBE TOP SCH ×2 (09:29→20:15)
[2023-09-02] MEDS: hydroCHLOROthiazide 25 MG TAB PO SCH (09:30)
[2023-09-02] MEDS: lisinopriL 20 MG TAB PO SCH (10:31)
[2023-09-02] MEDS: BISACODYL 10 MG RECTAL SUPP PR PRN (12:54)
[2023-09-02] MEDS: BACLOFEN 10 MG TAB PO SCH (14:44)
[2023-09-02] MEDS: ROSUVASTATIN 10 MG TAB PO SCH (20:15)
[2023-09-02] MEDS: ATORVASTATIN 80 MG TAB PO SCH (20:15)
[2023-09-02] MEDS: ROPINIROLE HCL 0.25 MG TAB PO SCH ×2 (20:16→20:29)
[2023-09-02] MEDS: ACETAMINOPHEN 500 MG TAB PO PRN (20:16)
[2023-09-02] MEDS: MELATONIN 3 MG TABLET PO SCH (20:16)
[2023-09-03] MEDS: CRANBERRY FRUIT EXTRACT 200 MG CAP PO SCH ×2 (07:29→20:19)
[2023-09-03] MEDS: INSULIN 70/30 100 UNITS/ML SQ SCH ×2 (07:29→20:18)
[2023-09-03] MEDS: LEVOTHYROXINE SOD 0.05 MG TABLET PO SCH (07:29)
[2023-09-03] MEDS: lisinopriL 20 MG TAB PO SCH (07:29)
[2023-09-03] MEDS: ASPIRIN 81 MG CHEWABLE TABLET PO SCH (07:29)
[2023-09-03] MEDS: VENLAFAXINE HCL XR 75 MG CAP PO SCH (07:30)
[2023-09-03] MEDS: LORATADINE 10 MG TAB PO SCH (07:30)
[2023-09-03] MEDS: PANTOPRAZOLE 40MG TABLET PO SCH (07:30)
[2023-09-03] MEDS: INSULIN REGULAR (HUMAN) 100 UNIT/ML SQ SCH ×4 (07:30→20:19)
[2023-09-03] MEDS: hydroCHLOROthiazide 25 MG TAB PO SCH (07:30)
[2023-09-03] MEDS: LIDOCAINE 4% PATCH TOP SCH (07:30)
[2023-09-03] MEDS: APIXABAN 2.5 MG TABLET PO SCH ×2 (07:30→20:19)
[2023-09-03] MEDS: TAMSULOSIN 0.4 MG SR CAP PO SCH ×2 (07:30→20:19)
[2023-09-03] MEDS: NYSTATIN OINT 15 GM TUBE TOP SCH ×2 (07:31→20:18)
[2023-09-03] MEDS: MAGNESIUM OXIDE 400 MG TAB PO SCH ×2 (08:00→20:19)
[2023-09-03] MEDS: GLUCERNA SHAKE 237 ML CAN PO SCH ×2 (08:00→20:00)
[2023-09-03] MEDS: DOCUSATE NA/SENNA CONC 1 TAB PO SCH ×2 (08:56→20:00)
[2023-09-03] MEDS: BACLOFEN 10 MG TAB PO SCH (12:02)
[2023-09-03] MEDS: ACETAMINOPHEN 500 MG TAB PO PRN ×2 (13:39→20:19)
[2023-09-03] MEDS: ATORVASTATIN 80 MG TAB PO SCH (20:18)
[2023-09-03] MEDS: MELATONIN 3 MG TABLET PO SCH (20:18)
[2023-09-03] MEDS: ROSUVASTATIN 10 MG TAB PO SCH (20:19)
[2023-09-03] MEDS: ROPINIROLE HCL 0.25 MG TAB PO SCH (20:20)
[2023-09-04] MEDS: LEVOTHYROXINE SOD 0.05 MG TABLET PO SCH (05:22)
[2023-09-04] MEDS: PANTOPRAZOLE 40MG TABLET PO SCH (07:22)
[2023-09-04] MEDS: DOCUSATE NA/SENNA CONC 1 TAB PO SCH ×3 (07:22→20:28)
[2023-09-04] MEDS: ASPIRIN 81 MG CHEWABLE TABLET PO SCH (07:23)
[2023-09-04] MEDS: MAGNESIUM OXIDE 400 MG TAB PO SCH ×2 (07:23→20:30)
[2023-09-04] MEDS: VENLAFAXINE HCL XR 75 MG CAP PO SCH (07:23)
[2023-09-04] MEDS: LORATADINE 10 MG TAB PO SCH (07:23)
[2023-09-04] MEDS: CRANBERRY FRUIT EXTRACT 200 MG CAP PO SCH ×2 (07:23→20:29)
[2023-09-04] MEDS: APIXABAN 2.5 MG TABLET PO SCH ×2 (07:23→20:30)
[2023-09-04] MEDS: TAMSULOSIN 0.4 MG SR CAP PO SCH ×2 (07:23→20:30)
[2023-09-04] MEDS: GLUCERNA SHAKE 237 ML CAN PO SCH ×2 (07:24→20:00)
[2023-09-04] MEDS: LIDOCAINE 4% PATCH TOP SCH ×2 (07:24→08:00)
[2023-09-04] MEDS: INSULIN REGULAR (HUMAN) 100 UNIT/ML SQ SCH ×4 (07:24→20:29)
[2023-09-04] MEDS: NYSTATIN OINT 15 GM TUBE TOP SCH ×2 (07:25→20:31)
[2023-09-04] MEDS: INSULIN 70/30 100 UNITS/ML SQ SCH ×2 (07:25→20:29)
[2023-09-04] MEDS: hydroCHLOROthiazide 25 MG TAB PO SCH (09:03)
[2023-09-04] MEDS: lisinopriL 20 MG TAB PO SCH (09:03)
[2023-09-04] MEDS: [UNRECOGNIZED DRUG - OTHER] OPTH SCH ×2 (11:30→20:00)
[2023-09-04] MEDS: ACETAMINOPHEN 500 MG TAB PO PRN (12:08)
[2023-09-04] MEDS: MELATONIN 3 MG TABLET PO SCH (20:33)
[2023-09-04] MEDS: ROPINIROLE HCL 0.25 MG TAB PO SCH ×2 (20:33→20:48)
[2023-09-04] MEDS: ATORVASTATIN 80 MG TAB PO SCH (20:33)
[2023-09-04] MEDS: ROSUVASTATIN 10 MG TAB PO SCH (20:33)
[2023-09-04] MEDS ORDERED: GENTEAL EYE OPTH SCH (21:00)
[2023-09-05] MEDS: PANTOPRAZOLE 40MG TABLET PO SCH ×2 (00:19→06:36)
[2023-09-05] MEDS: LEVOTHYROXINE SOD 0.05 MG TABLET PO SCH (06:34)
[2023-09-05 06:37] VITALS: BP 152/68; TEMP 96.8
[2023-09-05] MEDS: INSULIN REGULAR (HUMAN) 100 UNIT/ML SQ SCH ×2 (06:48→11:30)
[2023-09-05] MEDS: GLUCERNA SHAKE 237 ML CAN PO SCH (08:00)
[2023-09-05] MEDS: LIDOCAINE 4% PATCH TOP SCH (08:00)
[2023-09-05] MEDS: DOCUSATE NA/SENNA CONC 1 TAB PO SCH (08:37)
[2023-09-05] MEDS: CRANBERRY FRUIT EXTRACT 200 MG CAP PO SCH (08:37)
[2023-09-05] MEDS: LORATADINE 10 MG TAB PO SCH (08:38)
[2023-09-05] MEDS: [UNRECOGNIZED DRUG - OTHER] OPTH SCH (08:38)
[2023-09-05] MEDS: TAMSULOSIN 0.4 MG SR CAP PO SCH (08:38)
[2023-09-05] MEDS: MAGNESIUM OXIDE 400 MG TAB PO SCH (08:38)
[2023-09-05] MEDS: ASPIRIN 81 MG CHEWABLE TABLET PO SCH (08:38)
[2023-09-05] MEDS: VENLAFAXINE HCL XR 75 MG CAP PO SCH (08:38)
[2023-09-05] MEDS: APIXABAN 2.5 MG TABLET PO SCH (08:38)
[2023-09-05] MEDS: NYSTATIN OINT 15 GM TUBE TOP SCH (08:38)
[2023-09-05] MEDS: INSULIN 70/30 100 UNITS/ML SQ SCH (08:39)
[2023-09-05] MEDS: hydroCHLOROthiazide 25 MG TAB PO SCH (08:39)
[2023-09-05] MEDS: lisinopriL 20 MG TAB PO SCH (08:39)
== END 2023-09-05 14:15 | disposition home health service (06) | DRG 57 ==
LOC: 5TH 20:58 → UNDOADMIN 20:58 → 5TH 21:14
PROVIDERS: ADMIT Psychiatry & Neurology Neurology with Special Qualifications in Child Neurology; ATTEND Psychiatry & Neurology Neurology with Special Qualifications in Child Neurology
DX: I69.351 Hemiplegia and hemiparesis following cerebral infarction affecting right dominant side (principal); A02.9 Salmonella infection, unspecified; N39.0 Urinary tract infection, site not specified; I69.391 Dysphagia following cerebral infarction; I69.322 Dysarthria following cerebral infarction; R13.10 Dysphagia, unspecified; I69.320 Aphasia following cerebral infarction; B37.31 Acute candidiasis of vulva and vagina; L30.4 Erythema intertrigo; E86.0 Dehydration; E11.9 Type 2 diabetes mellitus without complications; D64.9 Anemia, unspecified; E78.5 Hyperlipidemia, unspecified; I10 Essential (primary) hypertension; G47.00 Insomnia, unspecified; K59.00 Constipation, unspecified; R33.9 Retention of urine, unspecified; F32.A Depression, unspecified; J30.2 Other seasonal allergic rhinitis; E03.9 Hypothyroidism, unspecified
CPT/HCPCS: 36415; 71045; 74018; 74230; 80048; 80053; 81001; 82040; 82248; 82947; 83605; 83690; 83735; 84134; 84145; 85025; 85610; 85730; 87040; 87086; 87088; 87635; 92507; 92523; 92526; 92610; 92611; 97110; 97112; 97116; 97124; 97129; 97140; 97163; 97165; 97530; 97542; J1815; J2001; J7030

== ENCOUNTER 2023-10-20 09:00 | Inpatient (IN) | payer OTHER ==
[2023-10-20 09:35] VITALS: BMI 28.3
[2023-10-20] MEDS ORDERED: LORATADINE 10 MG TAB PO PRN (09:55)
[2023-10-20] MEDS ORDERED: GLUCAGON 1 MG/VIAL IM PRN ×2 (09:57→11:23)
[2023-10-20] MEDS ORDERED: D50W 25 GM/50 ML SYRINGE IV PRN ×2 (09:57→11:23)
[2023-10-20] MEDS ORDERED: D10W 125 ML IV PRN (10:04)
[2023-10-20] MEDS ORDERED: DOCUSATE NA 100 MG CAP PO PRN (10:10)
[2023-10-20] MEDS ORDERED: CHLORASEPTIC LOZENGES PO PRN (10:13)
[2023-10-20] MEDS: ASPIRIN 81 MG CHEWABLE TABLET PO SCH (10:35)
[2023-10-20] MEDS: CRANBERRY FRUIT EXTRACT 200 MG CAP PO SCH (10:36)
[2023-10-20] MEDS: APIXABAN 2.5 MG TABLET PO SCH (10:36)
[2023-10-20] MEDS: OCUVITE (VIT A,C & E/LUTEIN/MINERAL) TABLET PO SCH (10:37)
[2023-10-20] MEDS: DOCUSATE NA 100 MG CAP PO SCH (11:00)
[2023-10-20] MEDS: INSULIN REGULAR (HUMAN) 100 UNIT/ML SQ SCH (11:25)
[2023-10-20 12:02] LABS: Specific Gravity 1.021 (1.005-1.030); Urine Bacteria None Seen /HPF (<20); Urine Bilirubin NEGATIVE (Negative); Urine Blood Negative (Negative); Urine Clarity Extremely Turbid (Clear); Urine Color Yellow (Yellow); Urine Glucose NEGATIVE (Negative); Urine Mucus Slight /HPF (None Seen); Urine Protein TRACE (Negative); Urine RBC <5 /HPF (None Seen); Urine Urobilinogen Normal (Normal)
[2023-10-20] MEDS: GABAPENTIN 100 MG CAP PO SCH (15:19)
[2023-10-20] MEDS: MAGNESIUM OXIDE 400 MG TAB PO SCH (19:30)
[2023-10-20] MEDS: NITROFURAN MACRO 100 MG CAP PO SCH (19:31)
[2023-10-20] MEDS: MELATONIN 3 MG TABLET PO SCH (19:33)
[2023-10-20] MEDS: ATORVASTATIN 80 MG TAB PO SCH (19:33)
[2023-10-20] MEDS: TAMSULOSIN 0.4 MG SR CAP PO SCH (19:33)
[2023-10-20] MEDS: INSULIN 70/30 100 UNITS/ML SQ SCH (19:45)
[2023-10-20] MEDS ORDERED: DOCUSATE NA/SENNA CONC 1 TAB PO SCH (20:00)
--- NOTE | 2023-10-21 03:57 | HP ---
Date of Admission: 10/20/2023 Time Of Service: 2 p.m. Chief Complaint: "I have a bladder infection and I am weak." History Of Present Illness: Ms. Rodríguez is a 78-year-old patient with diabetes mellitus type 2, ce rvical spinal stenosis, status post decompression, who was seen at [facility] on August 05, with nausea, vomiting, and diarrhea. She was diagnosed with salmonella infection sensitive to Ba ctrim and received Bactrim treatment. While in hospital, she had significant right-sided deficits wo rrisome for stroke and was evaluated and Life Flighted to [facility]. Her CT scan of the brain was n egative. However, brain MRI without contrast on August 12, 2023, showed a small acute vascular stro ke in the left medulla. The stroke extended to the left pontomedullary junction. In addition, there was atrophy and chronic small vessel ischemic disease. Angiogram of the head and neck did not show large vessel occlusion. Echocardiogram with ejection fraction of 65%. She was treated medically wit h aspirin 81 mg daily, Plavix 75 mg daily, and high-dose statin. She was sent to acute inpatient edith abilitation at [place]. There she was diagnosed with a vaginal yeast infection, which was treated. After finishing acute inpatient rehabilitation, she was transferred to halfway facility as she was not ready for home, where she continued therapy. However, she developed urinary retention, was plac ed on Flomax and still required a Garcia catheter placement. Blood sugars were managed by insulin and there she was diagnosed with an additional urinary tract infection and treated with 7 days of antibi otics. Prior to the patient's worsening symptoms and hospitalization, she was able to live at home, mobilize into her house with a ramp and was independent of activities of daily living using the walke r. However, at this point, she requires moderate assistance for transfers for bed mobilization, ambu lating only about 30 feet with a platform walker and has been functioning well below her baseline lev el. Currently, she requires aggressive therapy, best suited for inpatient therapy given her complica bianca course and risk of worsening medical condition. She will also benefit from halfway on on going 24-hour basis, daily physician evaluation, and social service evaluation and management for dis charge planning and durable medical equipment needs. Past Medical History: Hypothyroidism; hypertension; diabetes mellitus type 2; cervical spine stenosi s, status post decompression and fusion; pneumonia; sinusitis; urinary tract infection; osteoporosis; insomnia; lumbar spinal stenosis; multiple falls; right sciatica; gastroesophageal reflux disease; a llergic rhinitis. Surgical History: Cervical spinal stenosis, status post cervical decompression with diskectomy and f usion; hysterectomy; right total hip arthroplasty twice in October 2020 and November 2021; right breast lumpectomy; hernia repair; shoulder surgery; and ankle surgery. Allergies: LEVOFLOXACIN, IODINE, CANAGLIFLOZIN, AND DULAGLUTIDE. Family History: Noncontributory. Medications: Tylenol Extra Strength 500 mg every 6 hours as needed, Eliquis 2.5 mg twice daily, aspi rin 81 mg daily, Lipitor 80 mg at bedtime, Dulcolax suppository 10 mg per rectum as needed, Colace 10 0 mg daily, Cymbalta 60 mg daily, gabapentin 100 mg twice daily, HydroDIURIL 25 mg daily. She has mi ld insulin sliding scale. Novolin insulin 70/30 24 units subcutaneously twice daily, Synthroid 0.05 mg daily, lidocaine patch apply topically daily to the foot where she has some mild pain, Prinivil 20 mg daily, Claritin 10 mg daily as needed, magnesium oxide 400 mg twice daily, melatonin 3 mg at bedt cezar, Centrum Silver 1 tablet daily, Macrobid 100 mg twice daily for urinary tract infection, Protonix 40 mg daily, Senokot-S 1 twice daily, Flomax 0.4 mg at bedtime, throat lozenges apply 1 ounce lozeng e for throat as needed every 4 hours, and Ultram 50 mg every 6 hours as needed. Laboratory Studies: Blood sugars ranged around 155. Additional blood work pending. Urinalysis toda y shows extreme turbidity, ketones 1+, 20 to 50 epithelial cells, trace of protein. X-ray/imaging: Shows brain MRI without contrast on August 12, shows very small relatively acute vas cular insult along the left medulla extending into the left pontomedullary junction. Also, atrophy a nd chronic microvascular ischemic change. CT angiogram of head and neck showed no large vessel occlu júnior. Review of Systems: She does report the issues of the urinary tract infection, which is improving. Also, diffuse weaknes s, mild confusion, disorientation. No rash. No current fevers, no chills. Mild myalgias, arthralgi as. No active psychiatric complaints. Does report doing much better with the Cymbalta, feeling a lo t better. Otherwise, negative on systems review. Current Level Of Functioning: Currently setup assistance for eating and supervision for oral hygiene , dependent for toilet hygiene, maximum assistance for bathing, moderate assistance for upper body dr essing, maximum assistance for lower body dressing and donning and doffing footwear. Moderate assist ance for rolling right to left, left to right and doing sit to stand and lying to sitting. Moderate assistance for transferring bed to chair to toilet and moderate assistance for ambulating with a plat form rolling walker 30 feet. She is working on going up and down steps. Rehabilitation And Medical Assessment And Plan: Her rehabilitation impairment code is 20, miscellane ous. Her impairment group code is 16, debility, noncardiac, nonpulmonary. Etiologic diagnosis is ur inary tract infection. Comorbidities are decreased mobility, decreased physical functioning, diabete s mellitus type 2, gastroesophageal reflux disease, dyslipidemia, hypertension, hypothyroidism, urina ry retention, weakness and stroke with right-sided weakness. Plan: 1.She will have physical, occupational, and speech therapy for 3-1/2 hours, 5 of 7 days. 2.We will continue for stroke risk reduction, aspirin 81 mg daily and Eliquis 2.5 mg twice daily for stroke risk reduction and for deep vein thrombosis prophylaxis. Continue Lipitor 80 mg at bedtime f or dyslipidemia. Continue with the stool softeners, Dulcolax and Senokot-S for constipation. Contin ue with Flomax for urinary retention. Continue tramadol for pain, Protonix for GE reflux, Macrobid f or urinary tract infection, melatonin for insomnia, Prinivil for her high blood pressure along with H ydroDIURIL for her fluid management. She has gabapentin for her neuropathic pain in the feet and aga in Cymbalta for depression, anxiety, and neuropathic pain. Comorbidities That Are Impacting Her Rehabilitation: She does have peripheral neuropathy, which has been mitigated with gabapentin and Cymbalta and she is doing fairly well with that. In addition, she of course has had multiple urinary tract infections and so cranberry will be added along with hydrat ion to minimize the risk of additional urinary tract infections. Rehab Specific Plan: Ms. Rodríguez will have physical, occupational, and speech therapy for 3-1/2 ho urs, 5 of 7 days to improve her ability to transfer from bed to chair to toilet, to be able to ambula te at least household distances and more than 250 feet if possible with the platform walker, to go up and down 10 steps with bilateral handrails and to propel a wheelchair 250 feet. She will also with speech therapy have goals of independent cognitive functioning, managing medications, planning for he r physician followups and for safety awareness. Ms. Rodríguez has a good understanding of the process of admission to inpatient rehabilitation facili and how she will benefit from physical, occupational, and speech therapy. If need be, additional help from the infectious disease service, the pulmonary service may be consulted. Given her complex medical condition and risk of further complications, rehabilitation cannot be safely or effectively p erformed at a lower level of facility such as halfway. Barriers To Discharge: Currently going home. She does have family members and they will receive edu cation regarding how to help her remain safe. However, it is noted that she has been in and out of [facility] facilities recently and has had strokes and therefore will have to work very hard with family members to be able to become independent or modified independent and remain at home without risk of rehospitalization. Length Of Stay: About 12 days. Disposition: Expected to be home with family members and/or if need be, a facility where she has ass istance such as assisted living. Prognosis: At this point is good. Rehabilitation Specific Goals: 1.Become independent with upper and lower body dressing, donning and doffing of shoes, toileting, sh owering, and performing activities of daily living. 2.Independent with ambulation of 250 feet with a rolling walker. 3.Independently propel a wheelchair 250 feet. 4.Independently go up and down 10 steps with bilateral handrails. 5.Independently perform cognitive functioning. 6.The above goals were reviewed with Ms. Rodríguez and she is in agreement. By signing this document, I acknowledge I personally performed a full physical examination on Ms. Talia langston no later than 24 hours after her admission to the inpatient rehabilitation facility and determ ined that she is able to tolerate the above course of treatment at an intensive level for a reasonabl e period of time. A detailed individualized plan of care for her will be completed by hospital day 4 based on the preadmission screen, history and physical, and therapy evaluations. VENKATESH Voice ID: [id number]
[2023-10-21 06:00] LABS: Absolute Lymphocytes (CBC) 4.3 K/uL (0.7-4.9); Hematocrit 32.4 % (36.0-45.0); Lymphocytes % 33.9 % (15.3-44.8); MCV 91.8 fL (80-100); MPV 7.3 fL (7.6-11.3); Platelets 331 thou/uL (152-406); RBC Red Blood Cell Count 3.53 M/uL (3.86-4.86)
[2023-10-21 06:17] LABS: Albumin 2.7 g/dL (3.4-5.0); Magnesium 1.8 mg/dL (1.6-2.4); Potassium 4.4 mEq/L (3.5-5.1); Prealbumin 21.5 mg/dL (20-40)
[2023-10-21] MEDS: LEVOTHYROXINE SOD 0.05 MG TABLET PO SCH (07:28)
[2023-10-21] MEDS: PANTOPRAZOLE 40MG TABLET PO SCH (07:28)
[2023-10-21] MEDS ORDERED: K2 PO SCH (08:00)
[2023-10-21] MEDS ORDERED: AREDS PO SCH (08:00)
[2023-10-21] MEDS: AREDS PO SCH (08:00)
[2023-10-21] MEDS ORDERED: D3 PO SCH (08:00)
[2023-10-21] MEDS ORDERED: DOCUSATE NA/SENNA CONC 1 TAB PO SCH (08:00)
[2023-10-21] MEDS ORDERED: INSULIN 70/30 100 UNITS/ML SQ SCH (08:00)
[2023-10-21] MEDS: CHOLECALCIFEROL PO SCH (08:00)
[2023-10-21] MEDS: [UNRECOGNIZED DRUG - OTHER] PO SCH (08:00)
[2023-10-21] MEDS: LIDOCAINE 4% PATCH TOP SCH (08:11)
[2023-10-21] MEDS: lisinopriL 20 MG TAB PO SCH (08:12)
[2023-10-21] MEDS: hydroCHLOROthiazide 25 MG TAB PO SCH (08:12)
[2023-10-21] MEDS: DULOXETINE 30 MG CAP PO SCH (08:13)
[2023-10-21] MEDS: MULTIVITAMIN TAB PO SCH (08:13)
[2023-10-23 04:55] LABS: Absolute Lymphocytes (CBC) 3.3 K/uL (0.7-4.9); Hematocrit 31.3 % (36.0-45.0); Lymphocytes % 24.4 % (15.3-44.8); MCV 91.8 fL (80-100); MPV 7.4 fL (7.6-11.3); Platelets 293 thou/uL (152-406); RBC Red Blood Cell Count 3.41 M/uL (3.86-4.86)
[2023-10-23 05:12] LABS: Potassium 3.7 mEq/L (3.5-5.1)
[2023-10-23 10:51] LABS: Specific Gravity 1.013 (1.005-1.030); Urine Bacteria <20 /HPF (<20); Urine Bilirubin NEGATIVE (Negative); Urine Blood 1+ (Negative); Urine Clarity Extremely Turbid (Clear); Urine Color Yellow (Yellow); Urine Glucose NEGATIVE (Negative); Urine Protein TRACE (Negative); Urine RBC >50 /HPF (None Seen); Urine Urobilinogen Normal (Normal); Urine pH 6.5 (5.0-7.0)
[2023-10-23] MEDS: TRAMADOL HCL 50 MG TAB PO PRN (15:58)
--- NOTE | 2023-10-24 01:43 | PN ---
Date of Progress Note: 10/23/2023 Time Of Service: 1:45 p.m. Subjective: Ms. Rodríguez is resting in bed. She is somewhat tired from her workout this morning, b ut says she knows she is improving and she otherwise has no new complaints. Objective: No fevers, chills, nausea, vomiting, myalgias, arthralgias, rash, headache, or weight jesica nge. Physical Examination: Vital Signs: Blood pressure 124/68, pulse 88, respiratory rate 16, temperature 99, oxygen saturation 97%. Weight 145 pounds. Height 5 feet. BMI 28.4. General: Ms. Rodríguez is resting in bed. She appears in no significant distress. HEENT: She is normocephalic, atraumatic. Sclerae anicteric. Oropharynx moist. Neck: Supple. Chest: Clear. Laboratory Studies: White blood cell count 13.5 with neutrophils 66.0, hemoglobin 10.7, platelets 29 3. She did have very low blood sugar earlier this morning of 52 and that did improve 30 minutes late r to 67 and by 1 o'clock, it was 140, at 7:20 this afternoon, it is 244. Her medications were adjust ed. Medications: Tylenol 500 mg every 6 hours as needed, Eliquis 2.5 mg twice daily, aspirin 81 mg daily , Lipitor 80 mg at bedtime, Dulcolax 10 mg per rectum as needed for constipation, Senokot-S 10 mg yennifer ly, duloxetine 60 mg daily, gabapentin 100 mg twice daily, HydroDIURIL 25 mg daily, Novolin insulin 7 0/30 24 units twice daily, Synthroid 0.05 mg daily, lidocaine patch apply topically daily as needed, Prinivil 20 mg daily, Claritin 10 mg daily as needed, magnesium oxide 400 mg twice daily, melatonin 3 mg at bedtime, Centrum Silver 1 tablet daily, Protonix 40 mg daily, Senokot-S 1 twice daily, Flomax 0.4 mg daily, throat lozenge 1 lozenge every 4 hours as needed, tramadol 50 mg every 6 hours as neede d. Progress Made With Physical And Occupational Therapy: Today, unidby-mw-yab transfers under maximum a ssistance, from bed to wheelchair transfer with maximum assistance. She did earlier gait training fo r 70 feet with a rolling walker minimum assistance, 30 feet with minimum assistance and 40 feet with moderate assistance. Self propel a wheelchair 60 feet and 60 feet backward, contact guard assistance . Ms. Rodríguez is making fair progress overall with physical and occupational therapy. She is somewha t diffusely weak and however is willing to work. She does appear this afternoon to be somewhat tired from the morning session. Assessment: Ms. Rodríguez is a 78-year-old patient admitted to the rehabilitation unit with urinary tract infection. She does have decreased physical functioning, decreased mobility, diabetes mellitus type 2, GE reflux, dyslipidemia, hypertension, hypothyroidism, urinary retention, and residual strok e with residual right-sided weakness. Plan: 1.She will continue with physical and occupational therapy for 3 hours a day, 5 of 7 days. 2.She has multiple medications for stroke risk reduction including aspirin and Eliquis and Lipitor. Continue with Dulcolax, Senokot for stool softening. Continue with tramadol for pain, Protonix for GE reflux. She finished off her urinary tract infection treatment; however, she does require close m onitoring for a recurrence of urinary tract infection. Comorbidities That Are Continuing To Impact Her Rehabilitation: She does have some fatigue and easy loss of endurance and may benefit from vitamin B12 1000 mcg injection which maybe helpful for energy. She also should work on energy conservation strategies as she is working with physical therapy. NINO/HODAN Voice ID: [id number] Report ID: [id number]
[2023-10-24] MEDS ORDERED: LIDOCAINE 4% PATCH ONE (14:37)
[2023-10-24] MEDS: LIDOCAINE 4% PATCH TOP ONE (14:49)
--- NOTE | 2023-10-24 15:03 | RAD REPORT ---
EXAM DESCRIPTION: RAD - Hand Right 2 View - 10/24/2023 2:40 pm CLINICAL HISTORY: pain,swelling COMPARISON: Hand Right 3 View dated 05/10/2022 TECHNIQUE: Right hand, 3 views. FINDINGS: No fracture is identified. Progressive erosive changes with osseous remodeling involving the proximal more than distal interphal angeal joints, most notably at the level of the ulnar styloid and hamate. There is no dislocation or periosteal reaction noted. Soft tissue swelling about the dorsal wrist. IMPRESSION: Progressive arthritic changes with erosions as above, raising concern for inflammatory a rthritis, including rheumatoid arthritis.
[2023-10-24] MEDS: INSULIN 70/30 100 UNITS/ML SQ SCH (20:25)
[2023-10-24] MEDS: DOCUSATE NA/SENNA CONC 1 TAB PO PRN (20:26)
[2023-10-25 07:50] LABS: Hematocrit 30.8 % (36.0-45.0); Lymphocytes % 27.1 % (15.3-44.8); MCV 92.4 fL (80-100); MPV 7.3 fL (7.6-11.3); Platelets 299 thou/uL (152-406); RBC Red Blood Cell Count 3.34 M/uL (3.86-4.86)
[2023-10-25 08:07] LABS: Potassium 4.4 mEq/L (3.5-5.1)
[2023-10-25] MEDS: LIDOCAINE 4% PATCH TOP SCH (08:56)
[2023-10-25] MEDS: ACETAMINOPHEN 500 MG TAB PO PRN (09:05)
[2023-10-25] MEDS ORDERED: XIIDRA EYE OPTH SCH (20:00)
[2023-10-25] MEDS: XIIDRA EYE OPTH SCH (21:40)
--- NOTE | 2023-10-25 22:10 | PN ---
Date of Progress Note: 10/25/2023 Time Of Service: 1:45 p.m. Subjective: Ms. Rodríguez is resting in bed. Family is at bedside. She said she is somewhat tired from doing her exercises today, but she feels better today than yesterday. Review of Systems: No fevers, chills, nausea, vomiting, myalgias, arthralgias. No other complaints. Physical Examination: Vital Signs: Blood pressure 136/61, pulse of 77, respiratory rate 16, temperature 97.2, oxygen satur ation 95%. General: Ms. Rodríguez is lying in bed, in no acute distress. HEENT: She appears normocephalic, atraumatic. Sclerae anicteric. Oropharynx pink, moist. Neck: Supple. Extremities: She does have the right upper extremity weakness from chronic stroke and more movement noted in the right lower extremity. She has less swelling in the right hand and has a pain patch. S he did have some pain and swelling there and it was discussed with family. Laboratory Studies: White blood cell count 11.2, neutrophils 63.4, hemoglobin 10.4. Sodium 140, pot assium 4.4, chloride 106, carbon dioxide 33, BUN 15, creatinine 0.86, glucose ranged from 116 to 361, calcium 9.0. X-ray/imaging: No new x-rays or imaging. Medications: Medications have been reviewed and she has again lidocaine patch applied in the right w rist where there is pain. Her hydrochlorothiazide has been adjusted to 12.5 mg daily. She is contin uing the Flomax 0.4 mg at bedtime. Other medications include eye drops, which should continue twice daily. She has Novolin insulin 70/30, 18 units subcutaneously twice daily, gabapentin 100 mg twice d aily, duloxetine 60 mg daily. Progress Made With Physical And Occupational Therapy: Today with physical therapy, she worked on gai t training using different compensatory strategies. She walked 140 feet twice with moderate assistan ce and 70 feet twice with moderate assistance, self propel a wheelchair 50 feet twice with contact gu jeffery assistance. With occupational therapy, she had improved right upper extremity joint mobility and more flexibility noted. The family was participating in her therapy. Decreased rigidity in the rig ht upper and lower extremity, where she has effects of a stroke. Ms. Armenta is making fair progress overall. However, her stroke which affected the right side jennifer es it difficult for her to mobilize and ambulate safely without significant help and a platform walke r on the right side. She has complaints of going to the bathroom several times and her diuretic has been decreased. Her kidney function is doing well. Assessment: Ms. Rodríguez is a 78-year-old patient with urinary tract infection, decreased physical function, decreased mobility, diabetes mellitus type 2, urinary retention, hypothyroidism, hypertensi on, dyslipidemia, and stroke with right upper and lower extremity weakness. Plan: 1.She will continue with physical, occupational, and speech therapy for 3.5 hours, 5 of 7 days. 2.Aspirin, continue Eliquis, Lipitor also continued. She has a pain patch in the right wrist. She has a decrease in her diuretic. Continue with Flomax. Comorbidities That Are Continuing To Impact Rehabilitation: The swelling in the right hand is noted and some poor energy. She does have B12 for that. She has right hand lidocaine patch in place. Aga in, diuretic has been decreased because of frequent urination and improving kidney function with eval uation for over-diuresis which is not occurring. NINO/MODL Voice ID: [id number] Report ID: [id number]
[2023-10-26] MEDS: hydroCHLOROthiazide 12.5 MG CAP PO SCH (08:40)
[2023-10-26] MEDS: AMOX/K CLAV 875 MG TAB PO SCH (13:25)
--- NOTE | 2023-10-26 19:43 | PN ---
Date of Progress Note: 10/26/2023 Time Of Service: 1 p.m. Subjective: Ms. Rodríguez is in a chair beside bed. She feels a little bit better about the swellin g in the right hand. It has a pain patch on it and she felt that she did better today than yesterday . Review of Systems: Mild myalgias in the right side of her upper and lower extremity and arthralgias, however, no signifi cant fevers, chills, nausea, vomiting. Physical Examination: Vital Signs: Blood pressure 145/66, pulse 81, respiratory rate 16, temperature, 97.2, oxygen saturat ion 96%. Weight 145 pounds. Height 5 feet. BMI 20.4. General: Ms. Rodríguez is sitting in a chair. HEENT: She is normocephalic, atraumatic. Sclerae anicteric. Oropharynx pink, moist. Neck: Supple. Chest: Clear. Extremities: She has decreasing swelling in the right upper and lower extremity. Neurologic: Right upper extremity strength is around 2/5, right lower extremity 3/5. Increased sens ation on the right compared to the left side. Laboratory Studies: White blood cell count 11.2, hemoglobin 10.4, platelets 299. Blood sugars range d from 173 to 196. X-ray/imaging: No new x-rays or imaging. Medications: She continues Eliquis 2.5 mg twice daily. She has a urinalysis that suggests urinary t ract infection and her urine cultures did grow from the 12th Salmonella species with sensitivity that is jacobs sensitive. Given the patient's allergies, she was started today on amoxicillin clavulanate 8 75/125 twice daily for 10 days. She also has Tylenol for pain, aspirin 81 mg daily for stroke risk r eduction, Lipitor 80 mg at bedtime for dyslipidemia, Colace 100 mg daily for constipation, duloxetine 60 mg daily for depression, gabapentin 100 mg twice daily for neuropathic pain. She has hydrochloro thiazide decreased to 12.5 mg twice daily to avoid over-diuresis, Synthroid 0.05 mg daily, Prinivil 2 0 mg daily, Claritin 10 mg as needed daily, melatonin 3 mg at bedtime, also throat lozenge, she has F kareen 0.4 mg at bedtime, Protonix 40 mg daily. Progress Made With Physical And Occupational Therapy: Her therapy today, she ambulated 45 feet with a rolling walker with minimum assistance, [id number] transfer with a platform wheelchair with moder ate assistance. In addition, she propelled a wheelchair another 70 feet twice with a rolling walker, contact guard assistance, and a wheelchair was mobilized 50 feet twice with contact guard assistance . With occupational therapy, bathing, minimal assistance. Independent with lower body dressing and donning and doffing footwear. Ms. Rodríguez is making fair progress overall with physical and occupational therapy. Assessment: Ms. Armenta is a 78-year-old patient, admitted to the rehabilitation unit with urinary tract infection which is still ongoing and she is taking antibiotics. She has diabetes mellitus typ e 2, urinary retention, hypothyroidism, hypertension, dyslipidemia, stroke with right upper and lower extremity paresis and some stiffness of movement of the right upper extremity. She will have an arm flexion mitigation with band applied. Plan: As noted, physical, occupational, and speech therapy 3 hours a day up to 3.5 hours, 5 of 7 day s. Continue with all of her medications that are listed above and she has the pain patch in the righ t wrist and her urinary tract infection medication, amoxicillin clavulanic acid continued. Comorbidities That Are Continuing To Impact Rehabilitation: She does have depression, which is impro ving slowly. Pain in the right hand from her stroke and stiffness. She did ambulate with a platform walker on the right and that she is making fair progress overall with that. NINO/HODAN Voice ID: [id number] Report ID: [id number]
[2023-10-26] MEDS ORDERED: CIPROFLOXACIN HCL 500 MG TAB PO SCH (20:00)
--- NOTE | 2023-10-27 14:04 | P.RH.PN ---
Estimated Length of Stay: 16 Expected Discharge Date: 11/09/23 Discharge Disposition Plan: Home Family Support: Yes Longterm Goal: Mobility, Transfers, Self Care Vital Signs: Last Vital Signs Temp 96.8 F 10/27/23 08:00 Pulse 77 10/27/23 08:54 Resp 16 10/27/23 08:00 BP 118/57 L 10/27/23 08:54 Pulse Ox 98 10/27/23 08:00 Laboratory: Laboratory Last Values WBC 11.20 thou/uL (4.3-10.9) H 10/25/23 07:26 RBC 3.34 M/uL (3.86-4.86) L 10/25/23 07:26 Hgb 10.4 g/dL (12.0-15.0) L 10/25/23 07:26 Hct 30.8 % (36.0-45.0) L 10/25/23 07:26 MCV 92.4 fL (80-100) 10/25/23 07:26 MCH 31.1 pg (27.0-35.0) 10/25/23 07:26 MCHC 33.7 g/dL (32.0-36.0) 10/25/23 07:26 RDW 14.7 % (12.1-15.2) 10/25/23 07:26 Plt Count 299 thou/uL (152-406) 10/25/23 07:26 MPV 7.3 fL (7.6-11.3) L 10/25/23 07:26 Neutrophils % 63.4 % (41.7-73.7) 10/25/23 07:26 Lymphocytes % 27.1 % (15.3-44.8) 10/25/23 07:26 Monocytes % 7.4 % (3.3-12.3) 10/25/23 07:26 Eosinophils % 1.9 % (0-4.4) 10/25/23 07:26 Basophils % 0.2 % (0-1.3) 10/25/23 07:26 Absolute Neutrophils 7.1 K/uL (1.8-8.0) 10/25/23 07:26 Absolute Lymphocytes 3.0 K/uL (0.7-4.9) 10/25/23 07:26 Absolute Monocytes 0.8 K/uL (0.1-1.3) 10/25/23 07:26 Absolute Eosinophils 0.2 K/uL (0-0.5) 10/25/23 07:26 Absolute Basophils 0.0 K/uL (0-0.5) 10/25/23 07:26 Sodium 140 mEq/L (136-145) 10/25/23 07:26 Potassium 4.4 mEq/L (3.5-5.1) 10/25/23 07:26 Chloride 106 mEq/L (98-107) 10/25/23 07:26 Carbon Dioxide 33 mEq/L (21-32) H 10/25/23 07:26 Anion Gap 5.4 mEq/L (5.0-15.0) 10/25/23 07:26 BUN 15 mg/dL (7-18) 10/25/23 07:26 Creatinine 0.86 mg/dL (0.55-1.02) 10/25/23 07:26 Est GFR (CKD-EPI) 70 ml/min (=/>90) L 10/25/23 07:26 Glucose 116 mg/dL (74-106) H 10/25/23 07:26 POC Glucose 219 mg/dL (65-120) H 10/27/23 11:07 Calcium 9.0 mg/dL (8.5-10.1) 10/25/23 07:26 Magnesium 1.8 mg/dL (1.6-2.4) 10/21/23 05:25 Albumin 2.7 g/dL (3.4-5.0) L 10/21/23 05:25 Prealbumin 21.5 mg/dL (20-40) 10/21/23 05:25 Urine Color Yellow (Yellow) 10/23/23 10:15 Urine Clarity Extremely turbid (Clear) H 10/23/23 10:15 Urine pH 6.5 (5.0-7.0) 10/23/23 10:15 Ur Specific [place] 1.013 (1.005-1.030) 10/23/23 10:15 Glucose (UA)(Auto) Negative (Negative) 10/23/23 10:15 Urine Ketones Negative (Negative) 10/23/23 10:15 Urine Blood 1+ (Negative) H 10/23/23 10:15 Urine Nitrite Negative (Negative) 10/23/23 10:15 Urine Bilirubin Negative (Negative) 10/23/23 10:15 Urine Urobilinogen Normal (Normal) 10/23/23 10:15 Ur Leukocyte Esterase 500 Jcarlos/uL (Negative) H 10/23/23 10:15 Urine RBC >50 /HPF (None Seen) H 10/23/23 10:15 Urine WBC >50 /HPF (<5) H 10/23/23 10:15 Ur Squamous Epith Cells <5 /HPF (None Seen) 10/23/23 10:15 U Non-Squamous Epi Cells <5 /HPF (None Seen) 10/20/23 11:25 Urine Bacteria <20 /HPF (<20) 10/23/23 10:15 Hyaline Casts 0-5 /LPF (None Seen) 10/20/23 11:25 Urine Mucus Slight /HPF (None Seen) 10/20/23 11:25 Urine Culture Reflexed Reflexed 10/23/23 10:15 Urine Total Protein Trace (Negative) H 10/23/23 10:15 Weight: 145 lb 3.2 oz Wound Present: No Closed Surgical Incision Present: No Negative Pressure Wound Therapy Present: No Physician Update: Labs reviewed and are stable. On Augmentin for UTI. 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 Moderate assistance for transfers, 140' x 2 with platform walker. Functional gain with grooming. Pain with movement of the right upper extremity. Right arm dynasplint. 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 Please see the Rehabilitation Signature page for all necessary signatures.
[2023-10-27] MEDS: CYANOCOBALAMIN 1000MCG/ML INJ IM ONE (16:14)
[2023-10-27] MEDS: BACLOFEN 10 MG TAB PO SCH (21:47)
[2023-10-29 04:11] LABS: Absolute Lymphocytes (CBC) 3.5 K/uL (0.7-4.9); Hematocrit 29.2 % (36.0-45.0); Lymphocytes % 33.7 % (15.3-44.8); MCV 91.3 fL (80-100); MPV 7.4 fL (7.6-11.3); Platelets 347 thou/uL (152-406); RBC Red Blood Cell Count 3.19 M/uL (3.86-4.86)
--- NOTE | 2023-10-31 03:21 | PN ---
Date of Progress Note: 10/20/2023 Time Of Service: 1:30 p.m. Subjective: Ms. Rodríguez is sitting in the bed in between therapy sessions. She did feel somewhat tired today, but she was able to tolerate therapy well. She has less pain in the right hand where th ere is a pain patch and swelling. She does have a hand in a platform rest while sitting in the chair beside her bed. Review of Systems: Mild pain in the right hand, which is improved and the right leg, where there is some stiffness noted . Physical Examination: Vital Signs: Blood pressure 110/55, pulse 77, respiratory rate 16, temperature 97.4, oxygen saturati on 96%. General: Ms. Rodríguez is sitting in a chair beside bed. HEENT: She has mild decrease in right nasolabial fold. Extremities: She has significant weakness that is unchanged in the right upper and lower extremities with decreased sensation in the same distribution, improved swelling in the right upper extremity. Laboratory Studies: White blood cell count 10.5, hemoglobin 10.0, platelets 347. Today, blood sugar s ranged from 163 to 256. X-ray/imaging: No new x-rays or imaging. Medications: Her medications have been reviewed and remained unchanged. Progress Made With Physical And Occupational Therapy: Today with physical therapy, she did work with physical therapist, improving her gait, she completed 100 feet and another 70 feet with contact guar d to minimum assistance. She self propel a wheelchair 150 feet with contact guard to minimum assista nce. With her occupational therapy, she tolerated right scapular mobilization and range of motion st retches, right shoulder with gentle massage, and the neck strap muscles to decrease pain a nd stiffness. She also did upper body training and was able to verbalize proper sequencing of how to reduce the stiffness with range of motion exercises. Ms. Rodríguez is making good progress with physical and occupational therapy. However, she does have dense paresis of the right upper and lower extremity which requires significant help to improve cond ition. Her urinary tract infection symptoms have been improving. Assessment: Ms. Rodríguez is a 78-year-old patient in the rehabilitation unit with urinary tract inf ection, which is improving. She has hypothyroidism, hypertension, dyslipidemia, urinary retention, a nd stroke with right upper extremity and lower extremity weakness and numbness. Plan: 1.She will continue with physical and occupational therapy for 3 hours a day, 5 of 7 days. 2.Continue with pain patch to the right wrist. Continue with elevation of the right upper extremity for decreasing swelling. Continue with antibiotics as noted. Continue with comorbid condition medi cations as noted. Comorbidities That Are Continuing To Impact Rehabilitation: She is still somewhat depressed, but is improving her outlook slightly and she will however require a lot of help at home and the family is w orking on having available help throughout the day and night. It is strongly recommended to continue physical, occupational, and speech therapy when she is discharged. NINO/HODAN Voice ID: [id number] Report ID: [id number]
[2023-10-31] MEDS: BISACODYL 10 MG RECTAL SUPP PR PRN (16:41)
--- NOTE | 2023-11-01 03:26 | PN ---
Date of Progress Note: 10/31/2023 Time Of Service: 1:35 p.m. Subjective: Ms. Rodríguez is sitting in a chair beside bed. She is in no significant distress, alth ough she says she does feel somewhat tired after her workout. Right arm has less swelling and less p ain. Review of Systems: No fevers or chills. No myalgias except mild on the right upper and lower extremity. No other posit marvin on systems review. Physical Examination: Vital Signs: Blood pressure 152/69, pulse 67, respiratory rate 18, temperature 96.8, oxygen saturati on 93%. General: Ms. Rodríguez is sitting in a chair. She is asking for more time in rehab and she is about to be discharged on the weekend and will likely go to alf to continue therapy. She othe rwise has significant paresis in the right upper extremity, but hand opening and closing now around 2 to 3/5 and biceps action around 2/5 in the right lower extremity, still around 2/5 proximally and di stally. Laboratory Studies: Blood sugars ranged from 183 to 297, although it is a low of 104 early in the mo rning. Progress Made With Physical And Occupational Therapy: Today, she ambulated 70 feet with a right plat form walker and minimum assistance at another 30 feet. She mobilized a wheelchair 50 feet and 80 fee t with standby assistance, multiple dec-ta-elvya transfers with contact guard assistance in parallel bars. With occupational therapy, minimum to contact guard assistance for azl-zi-ilzgu and grab onto grab bars. Bathing, minimum assistance, dependent with lower body dressing, donning and doffing foot wear. She is independent with grooming and oral hygiene. Ms. Rodríguez is making fair, but not quite enough progress to be able to return home and be safemahin alf will be required. Assessment: Ms. Rodríguez is a 78-year-old patient in the rehabilitation unit with urinary tract inf ection, from which she is recovering very well. She has hypothyroidism, hypertension, dyslipidemia, urinary retention, stroke has reduced, right upper and lower extremity weakness and numbness with mil d dysarthria. Plan: 1.She will continue with physical, occupational, and speech therapy for 3 hours a day, 5 of 7 days. 2.Continue with comorbid condition medications including the lidocaine patch in the right wrist. Daniel valencia does have that area in the brace in the chair she sits to decrease pain, which may commence the emely ulder from independent hanging up the right upper extremity. Continue Eliquis 2.5 mg twice daily for DVT prophylaxis, aspirin 81 mg daily for stroke risk reduction, Lipitor 80 mg at bedtime for dyslipi demia. Continue her other comorbid medications including Flomax, Senokot, Protonix, Centrum, melaton in, magnesium, Prinivil, lidocaine, Synthroid along with insulin 70/30, 18 units at bedtime, and hydr ochlorothiazide 12.5 mg daily. Comorbidities That Are Continuing To Impact Rehabilitation: Currently, stroke with significant weakn ess in the right lower extremity, limits her ability to thrive and do well. In addition to weakness of the right upper extremity, she will require a platform walker. She will require additional time t o begin to recover and alf to be considered. NINO/HODAN Voice ID: [id number] Report ID: [id number]
[2023-11-02 07:13] VITALS: TEMP 96.8
--- NOTE | 2023-11-02 09:15 | P.CNS ---
Date of Consult: 11/02/23 Reason for Consult: painful toenails Allergies canagliflozin Allergy (Verified 10/20/23 10:23) Itching/Hives/Rash dulaglutide Allergy (Verified 10/20/23 10:23) Itching/Hives/Rash levofloxacin [From Levaquin] Allergy (Verified 10/20/23 10:23) Anaphylaxis iodine Adverse Reaction (Verified 10/20/23 10:23) Anaphylaxis iv dye Allergy (Uncoded 08/17/23 01:02) Shortness of breath Home Medications: Apixaban [Eliquis *] 2.5 mg PO BID 09/05/23 Aspirin Chewable [Aspirin Chewable*] 81 mg PO DAILY tab.chew 09/05/23 Atorvastatin Calcium [Lipitor] 80 mg PO BEDTIME tab 09/05/23 Benzocaine/Menthol [Chloraseptic Sore Throat Lozng] 1 ilda PO Q4H PRN ilda Bisacodyl [Dulcolax*] 10 mg ME DAILY PRN supp 09/05/23 Cranberry Fruit Extract 200 mg PO BID cap 09/05/23 Docusate [Colace Cap*] 100 mg PO BID PRN cap 09/05/23 Gentel Tears 1 applic OPTH BEDTIME 09/05/23 Insulin -Regular Human [Novolin -R*] See Protocol SQ ACHS ml 09/05/23 Insulin 70/30 NPH/Reg Human [Novolin 70/30*] 24 unit SQ BEDTIME ml 09/05/23 Levothyroxine [Synthroid*] 0.05 mg PO DAILYAC 09/05/23 Lubricating Eyedrops 1 drop OPTH BID 09/05/23 Magnesium Oxide [Mag 0X*] 400 mg PO BID tab 09/05/23 Pantoprazole [Protonix Tab*] 40 mg PO 0730 tab 09/05/23 hydroCHLOROthiazide [Hydrodiuril*] 25 mg PO DAILY tab 09/05/23 lisinopriL [Prinivil*] 20 mg PO DAILY tab 09/05/23 traMADol HCL [Ultram*] 50 mg PO Q6H PRN tab 09/05/23 Acetaminophen [Tylenol Extra Strength] 500 mg PO Q6H PRN 10/20/23 Areds Capsule 1 cap PO BID 10/20/23 Docusate/Senna [Senokot-S*] 1 tab PO DAILY 10/20/23 Duloxetine HCl [Cymbalta] 60 mg PO DAILY 10/20/23 Gabapentin [Neurontin*] 100 mg PO BID 10/20/23 Insulin 70/30 NPH/Reg Human [Novolin 70/30*] 24 units SQ DAILY 10/20/23 Lidocaine [Lidocaine Pain Relief] 1 patch TD DAILY 10/20/23 Loratadine [Claritin*] 10 mg PO DAILY PRN 10/20/23 Melatonin [Melatonin*] 3 mg PO BEDTIME 10/20/23 Multivit,Ther Iron,Ca,FA & Min [Centrum Tablet*] 1 tab PO DAILY 10/20/23 Tamsulosin HCl [Flomax] 1 cap PO BEDTIME 10/20/23 Vit K + D3 Capsule 1 cap PO DAILY 10/20/23 - Past Medical/Surgical History Diabetic: Yes -: Insulin-dependent diabetes -: Hypertension -: hypothyroidism -: OA -: abd sx foot sx -: c5-7 sx hernia repair -: trh shoulder sx lt -: breast lumpectomy -: cs hysterectomy -: cholecystectomy -: conoscopy -: d&c Psychosocial/ Personal History: Lives at home with family - Social History Alcohol use: No CD- Drugs: No Caffeine use: No Place of Residence: Home Review of Systems 10-point ROS is otherwise unremarkable Physical Examination Temp Pulse Resp BP Pulse Ox 96.8 F 79 18 170/68 H 95 11/02/23 06:57 11/02/23 06:57 11/02/23 06:57 11/02/23 06:57 11/02/23 06:57 General: Alert, In no apparent distress, Oriented x3 Cardiovascular: No edema, Normal pulses Capillary refill: <2 Seconds Musculoskeletal: No clubbing, No swelling, No contractures, No erythema, No tenderness, No warmth, Other (Foot drop right lower extremity) Integumentary: No rashes, No breakdown, No significant lesion, No tenderness/swelling, No erythema, No warmth, No cyanosis, Other (Thickened hypertrophic bilateral hallux nails with subungual debris. 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
[2023-11-02 10:47] VITALS: BP 134/60
== END 2023-11-02 11:00 | DRG 948 ==
LOC: 5TH 09:00
PROVIDERS: ADMIT Psychiatry & Neurology Neurology with Special Qualifications in Child Neurology; ATTEND Psychiatry & Neurology Neurology with Special Qualifications in Child Neurology
PROC: 0HBRXZZ Excision of Toe Nail, External Approach (ICD-10-PCS; principal; 2023-11-02)
PROC: 0HBRXZZ Excision of Toe Nail, External Approach (ICD-10-PCS; 2023-11-02)
PROC: 0HBRXZZ Excision of Toe Nail, External Approach (ICD-10-PCS; 2023-11-02)
PROC: 0HBRXZZ Excision of Toe Nail, External Approach (ICD-10-PCS; 2023-11-02)
PROC: 0HBRXZZ Excision of Toe Nail, External Approach (ICD-10-PCS; 2023-11-02)
PROC: 0HBRXZZ Excision of Toe Nail, External Approach (ICD-10-PCS; 2023-11-02)
PROC: 0HBRXZZ Excision of Toe Nail, External Approach (ICD-10-PCS; 2023-11-02)
PROC: 0HBRXZZ Excision of Toe Nail, External Approach (ICD-10-PCS; 2023-11-02)
DX: R53.81 Other malaise (principal); N39.0 Urinary tract infection, site not specified; I69.351 Hemiplegia and hemiparesis following cerebral infarction affecting right dominant side; I69.322 Dysarthria following cerebral infarction; B35.1 Tinea unguium; L60.2 Onychogryphosis; M54.31 Sciatica, right side; R33.9 Retention of urine, unspecified; E11.9 Type 2 diabetes mellitus without complications; K21.9 Gastro-esophageal reflux disease without esophagitis; E78.5 Hyperlipidemia, unspecified; I10 Essential (primary) hypertension; E03.9 Hypothyroidism, unspecified; M81.0 Age-related osteoporosis without current pathological fracture; G47.00 Insomnia, unspecified; M21.371 Foot drop, right foot; Z79.01 Long term (current) use of anticoagulants
CPT/HCPCS: 31720; 36415; 80048; 81001; 82040; 82947; 83735; 84134; 85025; 87077; 87086; 87088; 87186; 94010; 97110; 97116; 97124; 97140; 97163; 97165; 97530; 97542; J1815; J2001; J3420

== ENCOUNTER 2024-03-30 18:51 | Inpatient (IN) | payer OTHER ==
[2024-03-30 19:22] LABS: Absolute Basophils 0.1 K/uL (0-0.5); Absolute Eosinophils 0.2 K/uL (0-0.5); Absolute Lymphocytes (CBC) 4.5 K/uL (0.7-4.9); Absolute Monocytes 0.7 K/uL (0.1-1.3); Absolute Neutrophil 5.2 K/uL (1.8-8.0); Basophils % 0.7 % (0-1.3); Eosinophils % 2.3 % (0-4.4); Hematocrit 39.5 % (36.0-45.0); Hemoglobin 13.4 g/dL (12.0-15.0); Lymphocytes % 41.9 % (15.3-44.8); MCH 31.4 pg (27.0-35.0); MCHC 33.9 g/dL (32.0-36.0); MCV 92.8 fL (80-100); MPV 7.7 fL (7.6-11.3); Monocytes % 6.5 % (3.3-12.3); Neutrophils % 48.6 % (41.7-73.7); Nucleated Red Blood Cells % 0.1 % (0-0); Platelets 334 thou/uL (152-406); RBC Red Blood Cell Count 4.26 M/uL (3.86-4.86); Red Cell Distribution Width 15.2 % (12.1-15.2)
[2024-03-30 19:26] LABS: PT Prothrombin Time 13.3 SECONDS (9.4-12.5); Protime INR 1.19
--- NOTE | 2024-03-30 19:29 | RAD REPORT ---
EXAM DESCRIPTION: RAD - Chest Single View - 03/30/2024 7:19 pm CLINICAL HISTORY: COUGH COMPARISON: Abdomen 1 View (KUB) dated 01/26/2024; Chest Single View dated 01/26/2024; Abdomen 1 View (KUB) dated 08/21/2023; Chest Single View dated 08/20/2023 FINDINGS: Lines: None. Lungs: No evidence of edema or pneumonia. Pleural: No significant pleural effusions or pneumothorax. Cardiac: The heart size is within normal limits. Mediastinum: Within normal limits. Bones: No acute fractures. Other: None IMPRESSION: No acute cardiopulmonary disease.
[2024-03-30 19:37] LABS: ALT/SGPT 29 U/L (13-56); AST/SGOT 14 U/L (15-37); Albumin 3.6 g/dL (3.4-5.0); Alkaline Phosphatase 80 U/L (45-117); Anion Gap 8.6 mEq/L (5.0-15.0); BUN Blood Urea Nitrogen 28 mg/dL (7-18); Bicarbonate 31 mEq/L (21-32); Bilirubin Total 0.2 mg/dL (0.2-1.0); Globulin 3.6 g/dL (2.3-3.5); Glomerular Filtration Rate 46 ml/min (=/>90); Glucose Level 175 mg/dL (74-106); Potassium 3.6 mEq/L (3.5-5.1); Protein, Total 7.2 g/dL (6.4-8.2); Sodium Level 137 mEq/L (136-145); Troponin High Sensitivity 4.5 pg/mL (<58.9)
--- NOTE | 2024-03-30 19:37 | RAD REPORT ---
EXAM DESCRIPTION: CT - Head Brain Wo Cont - 03/30/2024 7:25 pm CLINICAL HISTORY: worsened numbness COMPARISON: No comparisons TECHNIQUE: All CT scans are performed using dose optimization technique as appropriate and may inclu de automated exposure control or mA/KV adjustment according to patient size. FINDINGS: No intracranial hemorrhage, hydrocephalus or extra-axial fluid collection.No areas of brai n edema or evidence of midline shift. Mild chronic small vessel ischemic changes. The paranasal sinuses and mastoids are clear. The calvarium is intact. IMPRESSION: No acute intracranial abnormality. Mild chronic small vessel ischemic changes .
[2024-03-30 19:38] LABS: Bilirubin Direct < 0.2 mg/dL (0-0.2)
[2024-03-30 21:55] LABS: Specific Gravity 1.021 (1.005-1.030); Sqamous Epithelial <5 /HPF (None Seen); Urine Bacteria None Seen /HPF (<20); Urine Bilirubin NEGATIVE (Negative); Urine Blood Negative (Negative); Urine Clarity Clear (Clear); Urine Color Light-Yellow (Yellow); Urine Culture Reflex Order NOT NEEDED; Urine Glucose NEGATIVE (Negative); Urine Ketones NEGATIVE (Negative); Urine Micro Reflex YN NO BILL MICROSCOPIC; Urine Mucus Slight /HPF (None Seen); Urine Nitrite NEGATIVE (Negative); Urine Protein NEGATIVE (Negative); Urine RBC <5 /HPF (None Seen); Urine Urobilinogen Normal (Normal); Urine WBC <5 /HPF (<5)
[2024-03-30] MEDS ORDERED: NA CHLORIDE 0.9% 1,000 ML ONE (22:26)
[2024-03-30] MEDS ORDERED: GLUCAGON 1 MG/VIAL IM PRN (23:36)
[2024-03-30] MEDS ORDERED: D50W 25 GM/50 ML SYRINGE IV PRN (23:36)
[2024-03-30] MEDS ORDERED: D10W 125 ML IV PRN (23:39)
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
--- NOTE | 2024-03-31 01:12 | ER ---
Nurse's Notes [facility] Name: Kathi Rodríguez Age: 78 yrs Sex: Female : 1945 Arrival Date: 03/30/2024 Time: 18:51 Bed 3 Private MD: Diagnosis: Facial Numbness;Muscle weakness (generalized) Presentation: 03/30 19:02 Chief complaint: Patient's son or daughter states: patient experiencing R side numbness al5 and swelling since yesterday, is feeling more weak than normal on that side. Hx of stroke with R side deficits. Coronavirus screen: At this time, the client does not indicate any symptoms associated with coronavirus-19. Ebola Screen: No symptoms or risks identified at this time. An acute neurological deficit is present. The patient has been moved to a treatment area. Initial Sepsis Screen: Does the patient meet any 2 criteria? No. Patient's initial sepsis screen is negative. Does the patient have a suspected source of infection? No. Patient's initial sepsis screen is negative. Risk Assessment: Do you want to hurt yourself or someone else? Patient reports no desire to harm self or others. Onset of symptoms was March 29, 2024. 19:02 Method Of Arrival: Wheelchair al5 19:02 Acuity: ROSHAN 2 al5 Triage Assessment: 19:05 The onset of the patients symptoms was. General: Appears in no apparent distress. al5 Behavior is calm, cooperative. Pain: Denies pain. EENT: No signs and/or symptoms were reported regarding the EENT system. Neuro: Level of Consciousness is awake, alert, Reports headache occipital area. Cardiovascular: Patient's skin is warm and dry. Respiratory: Airway is patent Respiratory effort is even, unlabored, Respiratory pattern is regular, symmetrical. GI: No signs and/or symptoms were reported involving the gastrointestinal system. : No signs and/or symptoms were reported regarding the genitourinary system. Derm: Skin is intact, Skin is pink, warm \T\ dry. normal. Musculoskeletal: No signs and/or symptoms reported regarding the musculoskeletal system. Historical: - Allergies: 19:04 Levaquin; al5 - PMHx: 19:04 Hypercholesterolemia; Hypertensive disorder; thyroid disease; stroke (thyroid disease); al5 Diabetes mellitus; - Immunization history:: Adult Immunizations up to date. - Infectious Disease History:: Denies. - Social history:: Smoking status: Patient denies any tobacco usage or history of. Screenin:20 Abuse screen: Denies threats or abuse. Denies injuries from another. jw7 19:20 [facility] ED Fall Risk Assessment (Adult) History of falling in the last 3 months, jw7 including since admission Yes- single mechanical fall (1 pt) Confusion or Disorientation No (0 pts) Intoxicated or Sedated No (0 pts) Impaired Gait Yes (1 pt) Mobility Assist Device Used Yes (1 pt) Altered Elimination No (0 pt) Score/Fall Risk Level 3 or more points = High Risk Oriented to surroundings, Maintained a safe environment, Educated pt \T\ family on fall prevention, incl call for assistance when getting out of bed, Assessed \T\ reinforced patient's understanding of fall precautions, Provided non-skid footwear, Hourly rounding (assess needs \T\ fall precautionary measures) done. Nutritional screening: No deficits noted. Tuberculosis screening: No symptoms or risk factors identified. Assessment: 19:20 VAN Scoring: Arm Drift: Minor drift Visual Disturbance: No visual disturbance noted. jw7 Aphasia: No aphasia noted. Neglect: No neglect noted. TNKase (Tenecteplase) Screening: Contraindications: Patient reports onset of signs and symptoms of stroke greater than 6 hours ago: Yes. General: Appears in no apparent distress. comfortable, Behavior is calm, cooperative, appropriate for age. 19:20 Pain: Denies pain. 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 Cardiovascular: Heart tones S1 S2 present Capillary refill < 3 seconds Clubbing of nail beds is absent JVD is absent Patient's skin is warm and dry. Respiratory: Airway is patent Trachea midline Respiratory effort is even, unlabored, Respiratory pattern is regular, symmetrical. GI: Abdomen is round non-distended, Bowel sounds present X 4 quads. Abd is soft and non tender X 4 quads. : No deficits noted. No signs and/or symptoms were reported regarding the genitourinary system. EENT: No deficits noted. No signs and/or symptoms were reported regarding the EENT system. Derm: Skin is healthy with good turgor, Skin is dry, Skin is normal, Skin temperature is warm. Musculoskeletal: Circulation, motion, and sensation intact. Range of motion: limited in Right Side. 20:30 Reassessment: Patient appears in no apparent distress at this time. No changes from 7 previously documented assessment. Patient and/or family updated on plan of care and expected duration. Pain level reassessed. Patient is alert, oriented x 3, equal unlabored respirations, skin warm/dry/pink. 21:29 Reassessment: Patient appears in no apparent distress at this time. No changes from jw7 previously documented assessment. Patient and/or family updated on plan of care and expected duration. Pain level reassessed. Patient is alert, oriented x 3, equal unlabored respirations, skin warm/dry/pink. 22:30 Reassessment: Patient appears in no apparent distress at this time. No changes from jw7 previously documented assessment. Patient and/or family updated on plan of care and expected duration. Pain level reassessed. Patient is alert, oriented x 3, equal unlabored respirations, skin warm/dry/pink. 23:30 [place] [facility] Protocol Exclusion Criteria: NPO for medical/surgical reason by provider [facility] order Yes. 23:30 Reassessment: Patient appears in no apparent distress at this time. No changes from jw7 previously documented assessment. Patient and/or family updated on plan of care and expected duration. Pain level reassessed. Patient is alert, oriented x 3, equal unlabored respirations, skin warm/dry/pink. 03/31 00:30 Reassessment: Patient appears in no apparent distress at this time. No changes from jw7 previously documented assessment. Patient and/or family updated on plan of care and expected duration. Pain level reassessed. Patient is alert, oriented x 3, equal unlabored respirations, skin warm/dry/pink. Vital Signs: 03/30 19:02 BP 170 / 70; Pulse 79; Resp 16; Temp 98(O); Pulse Ox 100% on R/A; Weight 72.12 kg (M); al5 Height 5 ft. 1 in. ; Pain 0/10; 21:30 BP 136 / 71; Pulse 64; Resp 17 S; Pulse Ox 96% on R/A; jw7 22:30 BP 142 / 67; Pulse 64; Resp 17 S; Pulse Ox 98% on R/A; jw7 23:30 BP 134 / 61; Pulse 63; Resp 15 S; Pulse Ox 96% on R/A; jw7 03/31 00:30 BP 137 / 67; Pulse 64; Resp 16 S; Pulse Ox 100% on R/A; jw7 03/30 19:02 Body Mass Index 30.04 (72.12 kg, 154.94 cm) al5 03/30 19:02 Pain Scale: Adult al5 NIH Stroke Scale Scores: 03/30 19:20 NIHSS Score: 3 jw7 ED Course: 18:53 Patient arrived in ED. mg5 18:55 Arm band placed on. mb9 18:59 Von Vanegas MD is Attending Physician. ec2 19:02 Arm band placed on left wrist. Patient placed in the treatment room, on a stretcher. al5 19:04 Triage completed. al5 19:15 Estrellita Graff RN is Primary Nurse. yb 19:15 EKG done, by ED staff, reviewed by Von Vanegas MD. Inserted saline lock: 22 gauge in mb9 left antecubital area, using aseptic technique. Blood collected. 19:20 Patient has correct armband on for positive identification. Bed in low position. Call [facility] light in reach. Side rails up X2. Provided Education on: Use of Call Light. 19:21 XRAY Chest (1 view) In Process Unspecified. EDMS 19:27 CT Head Brain wo Cont In Process Unspecified. EDMS 22:10 Clemente Zhao MD is Hospitalizing Provider. ec2 03/31 00:21 No provider procedures requiring assistance completed. Patient admitted, IV remains in [facility] place. Administered Medications: 03/30 22:34 Drug: NS 0.9% IV 1000 ml IV at 1 bolus Per protocol; 1000 mL bolus Route: IV; Rate: 1 yb bolus; Site: left antecubital; 03/31 00:57 Follow up: Response: No adverse reaction; IV Status: Completed infusion; IV Intake: jw7 1000ml Medication: 00:21 VIS not applicable for this client. [facility] Point of Care Testing: Blood Glucose: 03/30 19:38 Blood Glucose: 175 mg/dL; [facility] Ranges: Intake: 03/31 00:57 IV: 1000ml; Total: 1000ml. [facility] Outcome: 03/30 22:11 Decision to Hospitalize by Provider. ec2 03/31 00:21 Admitted to Med/surg accompanied by nurse, via stretcher, room 232, jw7 Condition: stable Instructed on the need for admit, Demonstrated understanding of instructions, 00:57 Patient left the ED. jw7 NIH Stroke Scale - NIH Stroke Score Date: 03/30/2024 Time: 19:20 Total Score = 3 10. Dysarthria (speech clarity - read or repeat words) - 0(Normal) 11. Extinction and Inattention (visual/tactile/auditory/spatial/personal) - 0(No abnormality) 1a. Level of Consciousness (LOC) - 0(Alert) 1b. Level of Consciousness (LOC) (Month \T\ Age) - 0(Both) 1c. LOC Commands (Open \T\ Closes Eyes/Health Sanitarian) - 0(Both) 2. Best Gaze (Lateral Gaze Paresis) - 0(Normal) 3. Visual Field Loss - 0(No visual loss) 4. Facial Palsy - 1(Minor Paralysis) 5a. Left Arm: Motor (10-second hold) - 0(No drift) 5b. Right Arm: Motor (10-second hold) - 1(Drift) 6a. Left Leg: Motor (5-second hold - always test supine) - 0(No drift) 6b. Right Leg: Motor (5-second hold - always test supine) - 1(Drift) 7. Limb Ataxia (finger/nose \T\ heel/yee - test with eyes open) - 0(Absent) 8. Sensory Loss (pinprick arms/legs/face) - 0(Normal) 9. Best Language: Aphasia (description/naming/reading) - 0(No aphasia) Initials: jw7 Signatures: Dispatcher [employer] Sissy Valerio RN RN jw7 Char Brooks RN RN Grace Jenkins 5 Von Vanegas MD MD ec2 Estrellita Graff RN RN yb Langhorst, Amanda, RN RN al5 Corrections: (The following items were deleted from the chart) 00:21 03/30 23:30 [place] [facility] Protocol Exclusion Criteria: NPO for medical/surgical jw7 reason by provider order Yes jw7
--- NOTE | 2024-03-31 01:13 | EDPHYS ---
Physician Documentation [facility] Name: Kathi Rodríguez Age: 78 yrs Sex: Female : 1945 Arrival Date: 03/30/2024 Time: 18:51 Bed 3 Private MD: ED Physician Von Vanegas HPI: 03/30 19:05 This 78 yrs old Female presents to ER via Wheelchair with complaints of S/S ec2 of Possible Stroke. 19:05 Patient arrives today for evaluation of increased fatigue as well as right facial ec2 numbness. Patient reports that she has a history of a stroke with profound right-sided deficits with minimal activity of the right upper and lower extremity and a baseline right facial numbness which she reports the numbness is actually worse than typical for her. Patient reports otherwise no vomiting or diarrhea, no cough and cold symptoms, no issues with p.o. intake, no urinary complaints.. Historical: - Allergies: 19:04 Levaquin; al5 - PMHx: 19:04 Hypercholesterolemia; Hypertensive disorder; thyroid disease; stroke (thyroid disease); al5 Diabetes mellitus; - Immunization history:: Adult Immunizations up to date. - Infectious Disease History:: Denies. - Social history:: Smoking status: Patient denies any tobacco usage or history of. ROS: 19:05 Constitutional: as per hpi ec2 Exam: 19:05 Constitutional: GEN: NAD Head: atraumatic Eyes: EOMI Ears: External ears are ec2 normal. CV: regular rate LUNGS: no respiratory distress ABD: non-distended SKIN: no evidence of rashes MSK: no evidence of trauma NEURO: Minimal activity of the right upper and right lower extremity, diminished sensation noted as well 19:08 CT study not indicated or reported. Reason for not performing CT: pending ec2 Vital Signs: 19:02 BP 170 / 70; Pulse 79; Resp 16; Temp 98(O); Pulse Ox 100% on R/A; Weight 72.12 kg (M); al5 Height 5 ft. 1 in. ; Pain 0/10; 21:30 BP 136 / 71; Pulse 64; Resp 17 S; Pulse Ox 96% on R/A; jw7 22:30 BP 142 / 67; Pulse 64; Resp 17 S; Pulse Ox 98% on R/A; jw7 23:30 BP 134 / 61; Pulse 63; Resp 15 S; Pulse Ox 96% on R/A; jw7 03/31 00:30 BP 137 / 67; Pulse 64; Resp 16 S; Pulse Ox 100% on R/A; jw7 03/30 19:02 Body Mass Index 30.04 (72.12 kg, 154.94 cm) al5 03/30 19:02 Pain Scale: Adult al5 NIH Stroke Scale Scores: 03/30 19:20 NIHSS Score: 3 jw7 MDM: 19:04 Patient medically screened. ec2 19:05 Data reviewed: vital signs. ED course: Patient arrives today for evaluation of ec2 worsening numbness to the right face. Examination remarkable for well-appearing nontoxic individual who is reportedly at her strength deficit baseline per patient and family in the room. Last known well was reportedly sometime yesterday. Will obtain lab work, EKG, chest x-ray, CT scan of the head. Differential diagnosis includes recrudescence of patient's stroke symptoms, urinary tract infection, electrolyte disturbances, arrhythmia.. 19:08 TNKase (Tenecteplase) Screening: Not Applicable. ec2 19:15 ED course: EKG independently reviewed and interpreted by me, shows normal sinus rhythm, ec2 rate 76, no acute ST segment elevations, intervals are nonconcerning.. 19:59 ED course: Metabolic profile shows renal dysfunction with creatinine 1.23 and a GFR 46. ec2 LFTs are nonactionable, CBC nonactionable, troponin within normal ranges, chest x-ray on my independent interpretation shows no acute intrathoracic process.CToH shows no acute intracranial process. . 22:09 ED course: No identifiable reason for patient's progression of facial numbness and now ec2 reported worsening weakness from her baseline, will admit the patient for further workup and MRI.. 22:09 ED course: Discussed case with hospitalist who agrees to except patient for admission.. ec2 22:10 ED course: MDM: Differential diagnosis as documented above in ED course; All lab tests ec2 ordered and reviewed as documented above; Independent interpretation of tests: EKG as above; History gathered from independent historian: Yes, family; Discuss inpatient hospitalization: Yes; I discussed the case with: Hospitalist . 03/30 19:05 Order name: Basic Metabolic Panel; Complete Time: 19:56 ec2 03/30 19:05 Order name: CBC with Diff; Complete Time: 19:56 ec2 03/30 19:05 Order name: PT-INR; Complete Time: 19:56 ec2 03/30 19:05 Order name: Troponin HS; Complete Time: 19:56 ec2 03/30 19:05 Order name: UAM; Complete Time: 22:00 ec2 03/30 19:05 Order name: LFT's; Complete Time: 19:56 ec2 03/30 23:29 Order name: Lipid Profile [facility] 03/30 23:29 Order name: Lipid Profile [facility] 03/30 19:05 Order name: XRAY Chest (1 view); Complete Time: 19:56 ec2 03/30 19:05 Order name: CT Head Brain wo Cont; Complete Time: 19:56 ec2 03/30 19:05 Order name: EKG; Complete Time: 19:05 ec2 03/30 23:29 Order name: IRF Screen [facility] 03/30 19:05 Order name: Cardiac monitoring; Complete Time: 19:13 ec2 03/30 19:05 Order name: EKG - Nurse/Tech; Complete Time: 19:13 ec2 03/30 19:05 Order name: IV Saline Lock; Complete Time: 19:13 ec2 03/30 19:05 Order name: Labs collected and sent; Complete Time: 19:13 ec2 03/30 19:05 Order name: O2 Per Protocol; Complete Time: 19:13 ec2 03/30 19:05 Order name: O2 Sat Monitoring; Complete Time: 19:13 ec2 03/30 19:59 Order name: Cath; Complete Time: 21:21 ec2 Administered Medications: 22:34 Drug: NS 0.9% IV 1000 ml IV at 1 bolus Per protocol; 1000 mL bolus Route: IV; Rate: 1 yb bolus; Site: left antecubital; 03/31 00:57 Follow up: Response: No adverse reaction; IV Status: Completed infusion; IV Intake: jw7 1000ml Point of Care Testing: Blood Glucose: 03/30 19:38 Blood Glucose: 175 mg/dL; jw7 Ranges: Critical Glucose Levels:Adult <50 mg/dl or >400 mg/dl <40 mg/dl or >180 mg/dl Disposition Summary: 03/30/24 22:11 Hospitalization Ordered Notes: Hospitalization Status: Inpatient Admission ec2 Provider: Clemente Zhao ec2 Location: Telemetry/MedSurg (Inpatient) ec2 Condition: Stable ec2 Problem: an acute exacerbation ec2 Symptoms: are unchanged ec2 Bed/Room Type: Standard ec2 Room Assignment: 232(03/30/24 23:42) cg Diagnosis - Facial Numbness ec2 - Muscle weakness (generalized) ec2 Forms: - Medication Reconciliation Form ec2 - SBAR form ec2 - Leadership Thank You Letter ec2 NIH Stroke Scale - NIH Stroke Score Date: 03/30/2024 Time: 19:20 Total Score = 3 10. Dysarthria (speech clarity - read or repeat words) - 0(Normal) 11. Extinction and Inattention (visual/tactile/auditory/spatial/personal) - 0(No abnormality) 1a. Level of Consciousness (LOC) - 0(Alert) 1b. Level of Consciousness (LOC) (Month \T\ Age) - 0(Both) 1c. LOC Commands (Open \T\ Closes Eyes/Software Qa System Specialist) - 0(Both) 2. Best Gaze (Lateral Gaze Paresis) - 0(Normal) 3. Visual Field Loss - 0(No visual loss) 4. Facial Palsy - 1(Minor Paralysis) 5a. Left Arm: Motor (10-second hold) - 0(No drift) 5b. Right Arm: Motor (10-second hold) - 1(Drift) 6a. Left Leg: Motor (5-second hold - always test supine) - 0(No drift) 6b. Right Leg: Motor (5-second hold - always test supine) - 1(Drift) 7. Limb Ataxia (finger/nose \T\ heel/yee - test with eyes open) - 0(Absent) 8. Sensory Loss (pinprick arms/legs/face) - 0(Normal) 9. Best Language: Aphasia (description/naming/reading) - 0(No aphasia) Initials: jw7 Signatures: Dispatcher [employer] Keri Castelan RN RN Von Vanegas MD MD ec2 Laura Callejas Estrellita Graff RN RN yb Langhorst, Amanda, RN RN al5 Sissy Norman RN jw7 Corrections: (The following items were deleted from the chart) 23:40 22:11 2 23:42 23:40 232 vk cg
[2024-03-31] MEDS: ENOXAPARIN 80 MG/0.8 ML SQ SCH (01:46)
[2024-03-31] MEDS: NA CHLORIDE 0.9% 1,000 ML IV SCH (01:46)
[2024-03-31 06:35] LABS: Hematocrit 34.6 % (36.0-45.0); Hemoglobin 12.1 g/dL (12.0-15.0); MCH 32.2 pg (27.0-35.0); MCHC 35.1 g/dL (32.0-36.0); MCV 91.8 fL (80-100); MPV 7.6 fL (7.6-11.3); Platelets 279 thou/uL (152-406); RBC Red Blood Cell Count 3.77 M/uL (3.86-4.86); Red Cell Distribution Width 15.1 % (12.1-15.2)
[2024-03-31 06:49] LABS: Anion Gap 6.6 mEq/L (5.0-15.0); Potassium 3.6 mEq/L (3.5-5.1)
--- NOTE | 2024-03-31 09:03 | P.PN ---
Subjective Date of Service: 03/31/24 Chief Complaint: Possible stroke Pt is resting comfortably in bed. CT head is negative for CVA. Waiting for MRI brain. She complains of facial numbness and right sided weakness. No other complaints. Review of Systems General: Unremarkable Eyes: Unremarkable ENT: Unremarkable Respiratory: Unremarkable Cardiovascular: Unremarkable Gastrointestinal: Unremarkable Genitourinary: Unremarkable Musculoskeletal: Unremarkable Integumentary: Unremarkable Neurological: Weakness Lymphatics: Unremarkable Physical Examination - Vital Signs Temperature: 97.1 F Blood Pressure: 146/68 Pulse: 65 Respirations: 15 Pulse Ox (%): 98 - Physical Exam General: Alert, In no apparent distress, Oriented x3 HEENT: Atraumatic, Normocephalic, PERRLA Neck: Supple, 2+ carotid pulse no bruit, JVD not distended Respiratory: Clear to auscultation bilaterally, Normal air movement Cardiovascular: No edema, Normal pulses, Regular rate/rhythm, Normal S1 S2 Capillary refill: <2 Seconds Gastrointestinal: Normal bowel sounds, Soft and benign, Non-distended Musculoskeletal: No clubbing, No swelling, No contractures, No erythema Integumentary: No rashes, No breakdown, No significant lesion Neurological: Normal speech, Normal tone, Sensation intact, Cranial nerves 3-12 intact Lymphatics: No axilla or inguinal lymphadenopathy - Studies Laboratory Data (last 24 hrs) 03/30/24 03/30/24 03/30/24 19:10 19:10 19:10 WBC 10.70 Hgb 13.4 Hct 39.5 Plt Count 334 PT 13.3 H INR 1.19 Sodium 137 Potassium 3.6 BUN 28 H Creatinine 1.23 H Glucose 175 H Total Bilirubin 0.2 AST 14 L ALT 29 Alkaline Phosphatase 80 Assessment And Plan - Plan Possible CVA; Pt has facial numbness and right sided weakness. CT head is unremarkable. Will f/u MRI brain and Echo. Continue PT/OT. Allow permissive htn. Pt has passed swallow eval. Will start aspirin, statin and consult Neurology. HLD: lipid panel shows T. chol 248 and LDL 151. Will continue statin. Htn: allow permissive htn until we r/o CVA. Hypothyroidism: Continue synthroid. DM II: Continue accuchek, SSI, and ADA diet DVT ppx: SCD Code: full
[2024-03-31] MEDS: ATORVASTATIN 80 MG TAB PO SCH (20:27)
[2024-03-31] MEDS: MELATONIN 3 MG TABLET PO PRN (20:27)
[2024-04-01] MEDS: ASPIRIN EC 81 MG TAB PO SCH (07:56)
--- NOTE | 2024-04-01 10:39 | P.PN ---
Subjective Date of Service: 04/01/24 Chief Complaint: Possible stroke Pt is resting comfortably in bed. CT head is negative for CVA. Waiting for MRI brain. She complains of facial numbness and right sided weakness. No other complaints. Review of Systems General: Unremarkable Eyes: Unremarkable ENT: Unremarkable Respiratory: Unremarkable Cardiovascular: Unremarkable Gastrointestinal: Unremarkable Genitourinary: Unremarkable Musculoskeletal: Unremarkable Integumentary: Unremarkable Neurological: Weakness, Numbness Lymphatics: Unremarkable Physical Examination - Vital Signs Temperature: 97.7 F Blood Pressure: 159/70 Pulse: 73 Respirations: 14 Pulse Ox (%): 96 - Physical Exam General: Alert, In no apparent distress, Oriented x3 HEENT: Atraumatic, Normocephalic, PERRLA Neck: Supple, 2+ carotid pulse no bruit, JVD not distended Respiratory: Clear to auscultation bilaterally, Normal air movement Cardiovascular: No edema, Normal pulses, Regular rate/rhythm, Normal S1 S2 Capillary refill: <2 Seconds Gastrointestinal: Normal bowel sounds, Soft and benign, Non-distended Musculoskeletal: No clubbing, No swelling, No contractures Integumentary: No rashes, No breakdown, No significant lesion Neurological: Normal tone, Sensation intact, Abnormal strength Lymphatics: No axilla or inguinal lymphadenopathy Assessment And Plan - Plan Possible CVA: Pt has facial numbness and right sided weakness. CT head is unremarkable. Will f/u MRI brain and Echo. Continue PT/OT. Allow permissive htn. Pt has passed swallow eval. Will start aspirin, statin and consult Neurology. HLD: lipid panel shows T. chol 248 and LDL 151. Will continue statin. Htn: allow permissive htn until we r/o CVA. Hypothyroidism: Continue synthroid. DM II: Continue accuchek, SSI, and ADA diet DVT ppx: SCD Code: full
--- NOTE | 2024-04-01 11:22 | RAD REPORT ---
EXAM DESCRIPTION: MRI - Brain Wo Cont - 04/01/2024 11:12 am CLINICAL HISTORY: Right-sided weakness COMPARISON: MRI 2021 TECHNIQUE: Axial, sagittal, and coronal magnetic resonance images of the brain were obtained. FINDINGS: Moderate signal within periventricular, deep and subcortical white matter probably ischemi c changes secondary to small vessel disease Abnormal signal basal ganglia has the appearance of old lacunar infarctions Diffusion-weighted/ADC mapping does not reveal evidence of acute infarction. The ventricles are normal caliber. An extra-axial fluid collection is not noted. Fluid within the sinuses/mastoids is not seen IMPRESSION: No acute intracranial abnormality noted
--- NOTE | 2024-04-01 16:35 | EKG ---
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
[2024-04-02 07:44] LABS: Absolute Basophils 0.1 K/uL (0-0.5); Absolute Eosinophils 0.2 K/uL (0-0.5); Absolute Lymphocytes (CBC) 2.7 K/uL (0.7-4.9); Absolute Monocytes 0.5 K/uL (0.1-1.3); Absolute Neutrophil 4.7 K/uL (1.8-8.0); Basophils % 0.6 % (0-1.3); Eosinophils % 1.9 % (0-4.4); Hematocrit 33.2 % (36.0-45.0); Hemoglobin 11.5 g/dL (12.0-15.0); Lymphocytes % 33.1 % (15.3-44.8); MCH 31.7 pg (27.0-35.0); MCHC 34.6 g/dL (32.0-36.0); MCV 91.7 fL (80-100); MPV 7.7 fL (7.6-11.3); Monocytes % 6.3 % (3.3-12.3); Neutrophils % 58.1 % (41.7-73.7); Nucleated Red Blood Cells % 0.3 % (0-0); Platelets 277 thou/uL (152-406); RBC Red Blood Cell Count 3.62 M/uL (3.86-4.86); Red Cell Distribution Width 14.8 % (12.1-15.2)
[2024-04-02 08:06] LABS: Anion Gap 8.9 mEq/L (5.0-15.0); Potassium 3.9 mEq/L (3.5-5.1)
--- NOTE | 2024-04-02 09:57 | P.PN ---
Date of Service: 04/02/24 Subjective reports facial numbness and right sided weakness, Review of Systems Unremarkable unless listed in HPI Physical Examination - Vital Signs Reviewed - Physical Exam General: Alert, oriented, afebrile, HEENT: Atraumatic, Normocephalic, PERRLA Neck: Supple, 2+ carotid pulse no bruit, JVD not distended Respiratory: Clear to auscultation bilaterally, unlabored Cardiovascular: No edema, Normal pulses, Regular rate/rhythm, Normal S1 S2 Capillary refill: <2 Seconds Gastrointestinal: Normal bowel sounds, nontender Musculoskeletal: No clubbing, No swelling, generalized weak Integumentary: No rashes, No breakdown, No significant lesion Neurological: Normal tone, Sensation intact, Abnormal strength Lymphatics: No axilla or inguinal lymphadenopathy Assessment And Plan - Plan Right facial Right hemiparesis Possible CVA: Pt has facial numbness and right sided weakness. CT head is unremarkable. Will f/u MRI brain and Echo. Continue PT/OT. Allow permissive htn. Pt has passed swallow eval. Will start aspirin, statin and consult Neurology. MRI FINDINGS: Moderate signal within periventricular, deep and subcortical white matter probably ischemic changes secondary to small vessel disease Abnormal signal basal ganglia has the appearance of old lacunar infarctions speech eval ST recommends soft and bite sized diet along with thin liquids using chin tuck maneuver MRI/MRA pending report Speech eval ST recommends soft and bite sized diet along with thin liquids using chin tuck maneuver. HLD: lipid panel shows T. chol 248 and LDL 151. Will continue statin. Htn: allow permissive htn until we r/o CVA. Hypothyroidism: Continue synthroid. DM II: Continue accuchek, SSI, and ADA diet DVT ppx: SCD Code: full
--- NOTE | 2024-04-02 13:50 | ECHO ---
HEIGHT: 5 ft 0 in WEIGHT: 161 lb 11.2 oz DATE OF STUDY: 04/02/[address]: Sabra Lopez MD 2-DIMENSIONAL: YES M.MODE: YES DOPPLER: YES COLOR FLOW: YES TDS: PORTABLE: YES DEFINITY: BUBBLE STUDY: DIAGNOSIS: CEREBRAL VASCULAR ACCIDENT CARDIAC HISTORY: CATHERIZATION: NO SURGERY: NO PROSTHETIC VALVE: NO PACEMAKER: NO MEASUREMENTS (cm) DIASTOLIC (NORMALS) SYSTOLIC (NORMALS) IVSd 1.0 (0.6-1.2) LA Diam 2.5 (1.9-4.0) LVEF 60-65% LVIDd 4.0 (3.5-5.7) LVIDs 2.9 (2.0-3.5) %FS 26% LVPWd 1.1 (0.6-1.2) Ao Diam 2.6 (2.0-3.7) 2 DIMENSIONAL ASSESSMENT: RIGHT ATRIUM: NORMAL LEFT ATRIUM: NORMAL RIGHT VENTRICLE: NORMAL LEFT VENTRICLE: NORMAL TRICUSPID VALVE: NORMAL MITRAL VALVE: NORMAL PULMONIC VALVE: MILD PULMONIC INSUFFICIENCY AORTIC VALVE: NORMAL PERICARDIAL EFFUSION: NONE AORTIC ROOT: NORMAL LEFT VENTRICULAR WALL MOTION: NORMAL DOPPLER/COLOR FLOW: SEE BELOW COMMENTS: 1. NORMAL LEFT VENTRICULAR EJECTION FRACTION 60-65% WITH NORMAL WALL MOTION 2. GRADE I DIASTOLIC DYSFUNCTION 3. MILD PULMONIC INSUFFICIENCY TECHNOLOGIST: AMADEO RIVERA
[2024-04-02] MEDS: lisinopriL 20 MG TAB PO SCH (14:41)
--- NOTE | 2024-04-02 23:28 | RAD REPORT ---
EXAM DESCRIPTION: MRI - MRA Head Wo Cont - 04/02/2024 3:49 pm CLINICAL HISTORY: TIA/CVA COMPARISON: Brain Wo Cont dated 04/01/2024; Iac W/Wo Cont dated 04/12/2022 TECHNIQUE: 3D noncontrast [id number] MR angiography of the [place] was performed. FINDINGS: No evidence of large vessel occlusion. No aneurysm, flow-limiting stenosis or vascular mal formation is seen. Forward flow seen in codominant vertebral arteries. No aneurysmal dilation or dissection are noted. The visualized dural venous sinuses appear patent. IMPRESSION: No significant flow abnormality of the [place] is identified.
[2024-04-03 05:33] LABS: Absolute Eosinophils 0.2 K/uL (0-0.5); Absolute Lymphocytes (CBC) 3.1 K/uL (0.7-4.9); Absolute Monocytes 0.5 K/uL (0.1-1.3); Absolute Neutrophil 5.1 K/uL (1.8-8.0); Basophils % 0.5 % (0-1.3); Eosinophils % 2.4 % (0-4.4); Hemoglobin 11.7 g/dL (12.0-15.0); MCH 31.5 pg (27.0-35.0); MCHC 34.5 g/dL (32.0-36.0); MCV 91.1 fL (80-100); MPV 7.4 fL (7.6-11.3); Monocytes % 5.6 % (3.3-12.3); Neutrophils % 56.5 % (41.7-73.7); Nucleated Red Blood Cells % 0.1 % (0-0); Platelets 303 thou/uL (152-406); RBC Red Blood Cell Count 3.73 M/uL (3.86-4.86); Red Cell Distribution Width 14.7 % (12.1-15.2)
[2024-04-03 05:58] LABS: Anion Gap 7.7 mEq/L (5.0-15.0); Potassium 3.7 mEq/L (3.5-5.1)
[2024-04-04 14:08] VITALS: BP 134/72; TEMP 97.9
[2024-04-04 14:11] VITALS: O2SAT 97; BMI 31.6
--- NOTE | 2024-04-07 21:35 | P.DS ---
Admission Date: 03/30/24 Discharge Date: 04/03/24 Disposition: TRANSFER TO INPATIENT REHAB Discharge Condition: GOOD Reason for Admission: Possible stroke Brief History of Present Illness: 8 years of age she has had hemispheric stroke with right-sided hemiparesis in July last year currently today she developed some facial numbness problems with her speech around 4 PM worsening weakness of her right hand but complete paralysis of the right leg also noticed more facial numbness Patient has difficulty swallowing although she stated although is able to communicate well alert and responsive no other complaints patient is on Eliquis at home - Physical Exam General: Alert, Oriented x3 HEENT: Atraumatic Neck: Supple Cardiovascular: No edema, Regular rate/rhythm, Normal S1 S2 Gastrointestinal: Normal bowel sounds, Hypoactive, Soft and benign Musculoskeletal: No clubbing, No swelling Integumentary: No rashes, No breakdown Neurological: Normal speech, Other (Patient has complete paralysis on the right side no obvious facial asymmetry noted blood test is pending patient intact in the right leg) Hospital Course: 78 years of age she has had hemispheric stroke with right-sided hemiparesis in July last year currently today she developed some facial numbness problems with her speech around 4 PM worsening weakness of her right hand but complete paralysis of the right leg also noticed more facial numbness Patient has difficulty swallowing although she stated although is able to communicate well alert and responsive no other complaints patient is on Eliquis at home SHe was evaluated by neurology for stroke, MRI aspirin, statin and consulted Neurology. MRI FINDINGS: Moderate signal within periventricular, deep and subcortical white matter probably ischemic changes secondary to small vessel disease. Abnormal signal basal ganglia has the appearance of old lacunar infarctions. Evaluated by Speech, soft and bite sized diet along with thin liquids using chin tuck maneuver. She was evaluated and accepted in acute inpatient rehab. She was stable, tolerating diet, approved for admission in acute rehab. Vital Signs/Physical Exam: Temp Pulse Resp BP Pulse Ox 97.9 F 73 18 134/72 97 04/03/24 08:00 04/03/24 08:00 04/03/24 08:00 04/03/24 08:00 04/03/24 08:00 Laboratory Data at Discharge: WBC 9.00 thou/uL (4.3-10.9) 04/03/24 05:04 Hgb 11.7 g/dL (12.0-15.0) L 04/03/24 05:04 Hct 34.0 % (36.0-45.0) L 04/03/24 05:04 Plt Count 303 thou/uL (152-406) 04/03/24 05:04 PT 13.3 SECONDS (9.4-12.5) H 03/30/24 19:10 INR 1.19 03/30/24 19:10 Sodium 142 mEq/L (136-145) 04/03/24 05:04 Potassium 3.7 mEq/L (3.5-5.1) 04/03/24 05:04 BUN 10 mg/dL (7-18) 04/03/24 05:04 Creatinine 0.51 mg/dL (0.55-1.02) L 04/03/24 05:04 Glucose 163 mg/dL (74-106) H 04/03/24 05:04 Total Bilirubin 0.2 mg/dL (0.2-1.0) 03/30/24 19:10 AST 14 U/L (15-37) L 03/30/24 19:10 ALT 29 U/L (13-56) 03/30/24 19:10 Alkaline Phosphatase 80 U/L (45-117) 03/30/24 19:10 Triglycerides 289 mg/dL (<150) H 03/31/24 06:15 Cholesterol 248 mg/dL (<200) H 03/31/24 06:15 HDL Cholesterol 39 mg/dL (40-60) L 03/31/24 06:15 Cholesterol/HDL Ratio 6.36 03/31/24 06:15 Home Medications: Apixaban [Eliquis *] 2.5 mg PO BID 03/31/24 Areds` 1 tab PO DAILY 03/31/24 Atorvastatin Calcium [Lipitor] 80 mg PO DAILY 03/31/24 Choline/Silicon [Regenemax 120-6 mg/0.3 ml Liq] 2.5 ml PO DAILY 03/31/24 Docusate [Colace Cap*] 100 mg PO DAILY PRN 03/31/24 Eyelid Cleanser Combination #9 [Systane] 1 drop EACH EYE BEDTIME 03/31/24 Folic Acid 0.4 mg PO DAILY 03/31/24 Insulin 70/30 NPH/Reg Human [Novolin 70/30*] 18 unit SQ BIDP PRN 03/31/24 Lactobacillus Acidophilus [Acidophilus Probiotic] 1 tab PO DAILY 03/31/24 Lisinopril [Zestril] 20 mg PO DAILY 03/31/24 Melatonin 10 mg PO BEDTIME 03/31/24 [place]-3/Dha/Epa/Fish Oil [Fish Oil 500 mg Softgel] 500 mg PO DAILY 03/31/24 Quercetin 500 mg PO DAILY 03/31/24 [place] Urinary Supplement` 1 cap PO DAILY 03/31/24 Thyroid,Pork [Double Bass Player Thyroid] 30 mg PO DAILY 03/31/24 Turmeric/Turmeric Root Extract [Turmeric 500 mg Capsule] 500 mg PO DAILY 03/31/24 Ubiquinol [Qunol Vin Coq10] 300 mg PO DAILY 03/31/24 hydroCHLOROthiazide [Hydrochlorothiazide*] 12.5 mg PO DAILY 03/31/24 Aspirin [Aspirin EC 81 MG] 81 mg PO DAILY #30 tab 04/03/24 Atorvastatin Calcium [Lipitor] 80 mg PO BEDTIME #30 tab 04/03/24 New Medications: Aspirin [Aspirin EC 81 MG] 81 mg PO DAILY #30 tab Atorvastatin Calcium [Lipitor] 80 mg PO BEDTIME #30 tab Physician Discharge Instructions: -OK to DC IV and DC home -Follow-up with PCP in 1 to 2 weeks -Follow-up with Neurology in 1 to 2 weeks -Plan for inpatient rehab after DC (Monday) -Please call Dr. Harvey at [phone] if any questions regarding hospital stay -Please call nursing station at [phone] if any nursing or medication questions -Return to the emergency room if symptoms worsen Diet: AHA Activity: Fall precautions Followup: Shalom Almeida MD [ASSOCIATE-ACTIVE - CAN ADMIT] - 1-2 Weeks Edwina Mcdowell FNP [Primary Care Provider] - 1-2 Weeks Time spent managing pt's care (in minutes): 35
== END 2024-04-03 12:05 | disposition home or self-care (01) | DRG 65 ==
LOC: ER 18:51 → ERHOLD 23:23 → 2ND 03-31 00:52
PROVIDERS: ADMIT Internal Medicine Sleep Medicine; ATTEND Hospitalist
DX: I63.9 Cerebral infarction, unspecified (principal); I69.351 Hemiplegia and hemiparesis following cerebral infarction affecting right dominant side; E03.9 Hypothyroidism, unspecified; E11.9 Type 2 diabetes mellitus without complications; E78.00 Pure hypercholesterolemia, unspecified; R20.0 Anesthesia of skin; R29.703 NIHSS score 3; Z79.4 Long term (current) use of insulin; Z88.8 Allergy status to other drugs, medicaments and biological substances; Z79.82 Long term (current) use of aspirin; Z79.01 Long term (current) use of anticoagulants; Z90.49 Acquired absence of other specified parts of digestive tract; Z79.890 Hormone replacement therapy; Z79.899 Other long term (current) drug therapy; Z90.710 Acquired absence of both cervix and uterus; Z91.048 Other nonmedicinal substance allergy status
CPT/HCPCS: 36415; 70450; 70544; 70551; 71045; 80048; 80061; 80076; 81001; 82947; 84484; 85025; 85027; 85610; 92523; 92526; 92610; 93005; 93306; 96360; 96361; 97161; 97530; 99285; J7030

== ENCOUNTER 2024-04-04 09:26 | Inpatient (IN) | payer OTHER ==
[2024-04-07] MEDS ORDERED: D50W 25 GM/50 ML SYRINGE IV PRN (15:39)
[2024-04-07] MEDS ORDERED: GLUCAGON 1 MG/VIAL IM PRN (15:39)
[2024-04-07 15:51] VITALS: BMI 30.7
[2024-04-07] MEDS: INSULIN 70/30 100 UNITS/ML SQ SCH (17:00)
[2024-04-07 18:56] LABS: Specific Gravity 1.013 (1.005-1.030); Urine Bacteria <20 /HPF (<20); Urine Bilirubin NEGATIVE (Negative); Urine Blood Negative (Negative); Urine Clarity Turbid (Clear); Urine Color Colorless (Yellow); Urine Glucose NEGATIVE (Negative); Urine Ketones NEGATIVE (Negative); Urine Micro Reflex YN NO BILL MICROSCOPIC; Urine Mucus Slight /HPF (None Seen); Urine Nitrite NEGATIVE (Negative); Urine Protein NEGATIVE (Negative); Urine RBC <5 /HPF (None Seen); Urine Urobilinogen Normal (Normal); Urine pH 7.5 (5.0-7.0)
[2024-04-07] MEDS: AREDS PO SCH (20:00)
[2024-04-07] MEDS: ATORVASTATIN 80 MG TAB PO SCH (20:43)
[2024-04-07] MEDS: MELATONIN 5 MG TABLET PO SCH (20:43)
[2024-04-07] MEDS: APIXABAN 2.5 MG TABLET PO SCH (20:43)
[2024-04-07] MEDS: FOLIC ACID 1 MG TABLET PO SCH (20:43)
[2024-04-07] MEDS: SYSTANE NIGHTTIME EYE OPTH SCH (20:44)
[2024-04-07] MEDS: MAGNESIUM PO SCH (20:44)
[2024-04-07] MEDS: TURMERIC 500 MG PO SCH (20:45)
[2024-04-07] MEDS: INSULIN REGULAR (HUMAN) 100 UNIT/ML SQ SCH (21:00)
[2024-04-07] MEDS ORDERED: FOLIC ACID 1 MG TABLET PO SCH (21:00)
--- NOTE | 2024-04-07 21:30 | P.DS ---
Admission Date: 04/07/24 Discharge Date: 04/07/24 Disposition: TRANSFER TO INPATIENT REHAB Brief History of Present Illness: 78 years of age she has had hemispheric stroke with right-sided hemiparesis in July last year currently today she developed some facial numbness problems with her speech around 4 PM worsening weakness of her right hand but complete paralysis of the right leg also noticed more facial numbness Patient has difficulty swallowing although she stated although is able to communicate well alert and responsive no other complaints patient is on Eliquis at home - Physical Exam General: Alert, Oriented x3 HEENT: Atraumatic Neck: Supple Cardiovascular: No edema, Regular rate/rhythm, Normal S1 S2 Gastrointestinal: Normal bowel sounds, Hypoactive, Soft and benign Musculoskeletal: No clubbing, No swelling Integumentary: No rashes, No breakdown Neurological: Normal speech, Other (Patient has complete paralysis on the right side no obvious facial asymmetry noted blood test is pending patient intact in the right leg) Hospital Course: 8 years of age she has had hemispheric stroke with right-sided hemiparesis in July last year currently today she developed some facial numbness problems with her speech around 4 PM worsening weakness of her right hand but complete paralysis of the right leg also noticed more facial numbness Patient has difficulty swallowing although she stated although is able to communicate well alert and responsive no other complaints patient is on Eliquis at home SHe was evaluated by neurology for stroke, MRI aspirin, statin and consulted Neurology. MRI FINDINGS: Moderate signal within periventricular, deep and subcortical white matter probably ischemic changes secondary to small vessel disease. Abnormal signal basal ganglia has the appearance of old lacunar infarctions. Evaluated by Speech, soft and bite sized diet along with thin liquids using chin tuck maneuver. She was evaluated and accepted in acute inpatient rehab. She was stable, tolerating diet, approved for admission in acute rehab. Vital Signs/Physical Exam: Temp Pulse Resp BP Pulse Ox 97.5 F 71 16 124/58 L 96 04/07/24 19:33 04/07/24 19:33 04/07/24 19:33 04/07/24 19:33 04/07/24 19:33 Home Medications: Apixaban [Eliquis *] 2.5 mg PO BID 03/31/24 Areds` 1 tab PO DAILY 03/31/24 Atorvastatin Calcium [Lipitor] 80 mg PO DAILY 03/31/24 Choline/Silicon [Regenemax 120-6 mg/0.3 ml Liq] 2.5 ml PO DAILY 03/31/24 Docusate [Colace Cap*] 100 mg PO DAILY PRN 03/31/24 Eyelid Cleanser Combination #9 [Systane] 1 drop EACH EYE BEDTIME 03/31/24 Folic Acid 0.4 mg PO DAILY 03/31/24 Insulin 70/30 NPH/Reg Human [Novolin 70/30*] 18 unit SQ BIDP PRN 03/31/24 Lactobacillus Acidophilus [Acidophilus Probiotic] 1 tab PO DAILY 03/31/24 Lisinopril [Zestril] 20 mg PO DAILY 03/31/24 Melatonin 10 mg PO BEDTIME 03/31/24 [employer]-3/Dha/Epa/Fish Oil [Fish Oil 500 mg Softgel] 500 mg PO DAILY 03/31/24 Quercetin 500 mg PO DAILY 03/31/24 [place] Urinary Supplement` 1 cap PO DAILY 03/31/24 Thyroid,Pork [Associate Director Finance Thyroid] 30 mg PO DAILY 03/31/24 Turmeric/Turmeric Root Extract [Turmeric 500 mg Capsule] 500 mg PO DAILY 03/31/24 Ubiquinol [Qunol Vin Coq10] 300 mg PO DAILY 03/31/24 hydroCHLOROthiazide [Hydrochlorothiazide*] 12.5 mg PO DAILY 03/31/24 Aspirin [Aspirin EC 81 MG] 81 mg PO DAILY #30 tab 04/03/24 Atorvastatin Calcium [Lipitor] 80 mg PO BEDTIME #30 tab 04/03/24
[2024-04-08] MEDS: THYROID 30 MG TAB PO SCH (05:35)
[2024-04-08 06:01] LABS: Absolute Eosinophils 0.2 K/uL (0-0.5); Absolute Lymphocytes (CBC) 3.9 K/uL (0.7-4.9); Absolute Monocytes 0.7 K/uL (0.1-1.3); Absolute Neutrophil 4.5 K/uL (1.8-8.0); Basophils % 0.5 % (0-1.3); Eosinophils % 2.3 % (0-4.4); Hematocrit 34.8 % (36.0-45.0); Hemoglobin 11.8 g/dL (12.0-15.0); Lymphocytes % 41.4 % (15.3-44.8); MCH 31.2 pg (27.0-35.0); MCHC 33.7 g/dL (32.0-36.0); MCV 92.5 fL (80-100); Monocytes % 7.2 % (3.3-12.3); Neutrophils % 48.6 % (41.7-73.7); Platelets 300 thou/uL (152-406); RBC Red Blood Cell Count 3.76 M/uL (3.86-4.86); Red Cell Distribution Width 15.2 % (12.1-15.2)
[2024-04-08 06:25] LABS: Anion Gap 7.5 mEq/L (5.0-15.0); Magnesium 1.9 mg/dL (1.6-2.4); Potassium 3.5 mEq/L (3.5-5.1); Prealbumin 14.8 mg/dL (20-40)
[2024-04-08] MEDS: QUERCETIN 500 MG PO SCH (08:00)
[2024-04-08] MEDS: VITAMIN D3 PO SCH (08:00)
[2024-04-08] MEDS ORDERED: VITAMIN D 5,000 UNIT CAP PO SCH (08:00)
[2024-04-08] MEDS: [UNRECOGNIZED DRUG - OTHER] PO SCH (08:00)
[2024-04-08] MEDS: K2 PO SCH (08:00)
[2024-04-08] MEDS ORDERED: DOCOSAHEXANOIC AC/EPA 1000 MG PO SCH (08:00)
[2024-04-08] MEDS: COQ10 PO SCH (08:00)
[2024-04-08] MEDS: LACTOBACILLUS/ACIDOPHILUS TAB PO SCH (09:56)
[2024-04-08] MEDS: DOCOSAHEXANOIC AC/EPA 1000 MG PO SCH (09:56)
[2024-04-08] MEDS: hydroCHLOROthiazide 12.5 MG CAP PO SCH (09:58)
[2024-04-08] MEDS: lisinopriL 20 MG TAB PO SCH (09:58)
[2024-04-08] MEDS: LIDOCAINE 4% PATCH TOP SCH (10:00)
[2024-04-08] MEDS: ACETAMINOPHEN 500 MG TAB PO PRN (17:41)
--- NOTE | 2024-04-09 03:43 | HP ---
Date of Admission: 04/07/2024 Time Of Service: 1 p.m. Chief Complaint: "I became weaker after my stroke." History Of Present Illness: Ms. Rodríguez is a 78-year-old patient with stroke and left brain right body with dense paresis on the right upper extremity and to a lesser extent in the left lower extremi ty with dysarthria, dysphagia, and right facial weakness. She came in on 03/30/2024, with worsening dysphagia and diffuse weakness, but more on the right side. Her imaging did not show an acute ischem ic hemorrhagic stroke, but consistent with the encephalomalacia following her prior stroke. Blood wo rk is consistent with dehydration and she was evaluated by speech, identified to have pharyngeal dysp hagia. She did have a swallow study, which again failed out the consistency to be properly adjusted and she required ongoing speech therapy to . She did have elevated blood sugar and of course the right hemiparesis. She had been utilizing a wheelchair and was transferring with m inimum assistance. However, since the decline in functioning, she now requires maximum assistance fo r transfers, poor ability to stand, maintain her balance, and to perform activities of daily living. As a result of her worsening medical condition and need for aggressive therapy, inpatient rehabilita tion was deemed to be more appropriate for her to help return to her prior level of functioning and t o reduce the risk of rehospitalization. Past Medical History: Stroke in July 2023, with left brain and right hemiparesis, hypothyroidism , cervical stenosis status post anterior cervical diskectomy and fusion, depression, anxiety, pneumon ia, sinusitis, urinary tract infection, osteoporosis, insomnia, gastroesophageal reflux. Surgical History: Anterior cervical diskectomy and fusion, hysterectomy, right total hip arthroplast y done twice in 2020 and 2021, right breast lumpectomy, hernia repair, shoulder surgery, ankle surger y. Allergies: LEVOFLOXACIN, CANAGLIFLOZIN CAUSES ITCHING, THE LEVOFLOXACIN CAUSES ANAPHYLAXIS, IODINE C AUSES ANAPHYLAXIS, AND DULAGLUTIDE CAUSES ITCHING AND HIVES. Medications: Tylenol Extra Strength 500 mg every 4 hours as needed, Eliquis 2.5 mg twice daily, Lipi tor 80 mg at bedtime, coenzyme Q10 300 mg daily, Colace 100 mg daily, duloxetine 30 mg daily, omega-3 fish oil 1000 mg daily, folic acid 1 mg daily, hydrochlorothiazide 12.5 mg daily, insulin 70/30, she has a sliding scale, Lactinex 1 tablet daily, lidocaine patch apply topically daily, Prinivil 20 mg daily, melatonin 10 mg at bedtime, [place] Thyroid 30 mg daily. Family History: Noncontributory. Social History: The patient lives at home with family who was involved in her care. She does not us e alcohol, tobacco, or illegal drugs. Review of Systems: Some pain and stiffness in the right arm, right-sided weakness, some problems with swallowing and dys arthria, articulation difficulties are still present, mild depression of mood, otherwise negative on systems review. Current Level Of Functioning: Eating, moderate assistance; oral hygiene, also moderate assistance; f or toilet hygiene, maximum assistance; bathing, maximal assistance; upper body dressing, at moderate assistance level; lower body dressing, moderate assistance; donning and doffing footwear at moderate assistance level. Rolling pwdtq-we-blip, fktn-do-lyyvm and going from sit to lying and lying to sitt ing inside the bed, maximum assistance; oki-qi-jktjq, maximum assistance; transfer from bed to toilet to chair, maximal assistance; ambulation, maximum assistance. She is not ambulatory due to the sign ificant weakness in the right side. Physical Examination: Vital Signs: Blood pressure 119/55, pulse 63, respiratory rate 16, temperature 97.2, oxygen saturati on 95%. General: Ms. Rodríguez is sitting in a chair in the room and is at the bedside. HEENT: She is normocephalic, atraumatic. Sclerae are icteric. Oropharynx pink and moist. Neck: Supple. Chest: Clear. Heart: Regular. Extremities: No significant clubbing, cyanosis, or edema. Neurological: Right facial droop, mild. There are fair excursions on smiling. Sensation decreased right compared to left; otherwise, no changes in cranial nerves. Motor examination, the right upper extremity has significant weakness, no detectable proximal movement. She does have some slight right hand finger flexion around 1 to 2/5. No other meaningful movement in the right upper extremity. Sh e is somewhat slightly stronger in the right lower extremity around 3+ knee extension and elevation, 2 for the ankle dorsiflexion. Decreased sensation in right compared to the left. Coordination intac t. Gait, nonambulatory at this time due to significant weakness, asymmetric reflexes. Laboratory Studies: White blood cell count 9.3, hemoglobin 11.8, platelets 300. Sodium 139, potassi um 3.5, chloride 106, BUN 15, creatinine 0.57, glucose ranged from 132 to 176, calcium 9.6, magnesium 1.9, albumin 3.0, prealbumin 14.8. Urinalysis has turbid clarity, pH 7.5. New X-rays Or Imaging: The brain MRI on 04/01, shows no acute intracranial abnormalities. MRA of th e head, no flow abnormalities on [place]. CT scan of the head on 03/30, no acute intracrani al abnormalities, mild chronic small vessel ischemic disease. Chest x-ray on 03/30, no acute cardiop ulmonary processes. Rehab And Medical Assessment And Plan: Ms. Rodríguez is admitted to inpatient rehabilitation unit wi impairment category 01 stroke. Her impairment group code is 01.2, right body involvement, left br ain. Etiologic diagnosis is late affects of stroke or sequelae of stroke. Her comorbidities are dec reased mobility, decreased physical functioning, diabetes mellitus type 2, dysphagia, dyslipidemia, h ypertension, hypothyroidism, anemia, and mild malnutrition. Plan: 1.She will have physical, occupational, and speech therapy for 3.5 hours, 5 of 7 days. We will cont inue with management of hypertension, diabetes mellitus, medications as needed. 2.We will continue Eliquis 2.5 mg twice daily for DVT risk reduction, Lipitor 80 mg at night for dys lipidemia, Colace for softening stools. We will continue her supplements including CoQ10, fish oil, folic acid. We will continue with fluid management using hydrochlorothiazide, Prinivil, for hyperten júnior, melatonin for insomnia, and [place] Thyroid for hypothyroidism. Comorbidities That Are Impacting Rehabilitation: As noted, she has significant weakness on the right side and high risk of falling and injury including fractures. Therefore, fall precautions will be a dhered to at all times. Gait belt will be used. She will have the walker and if ambulatory, ___ therapist will follow with a wheelchair. We will work to improve her ability to maintain balance , to maintain an upright position while in the chair, and those are factors to work on. She does hav e the diabetes and hypertension and risk of deep vein thrombus and those comorbidities are mitigated as noted above. Rehab Specific Plan: Ms. Rodríguez will have 3.5 hours of physical, occupational, and speech therapy 5 days a week to improve her ability to transfer from the bed to a chair and to the toilet, to the s hower, performing toileting and showering and to perform her activities of daily living. The therapy will help to improve her ability to mobilize more than household distances, which are 250 feet and a mirza and she will ambulate around the unit hopefully 250 feet, hopefully work on climbing a few steps perhaps 5 and mobilizing the wheelchair with independence. In addition, she works with speech therfouzia vargas to improve her swallowing, her ability to protect her airway, to communicate effectively, to be ab le to manage some of her medications along with the help of her family. Ms. Rodríguez has a good understanding of the process of admission to the inpatient rehabilitation [facility], how she will benefit from physical, occupational, and speech therapy. She will have 24 hours a day, 7 days a week skilled rehabilitation nursing for assessing her current condition, determining if the blood work is required, imaging is required, managing pain, sleep, bowel movements, and other attendant issues. She will have daily physician evaluation and management for integrating her care and therapy. She will have psych social worker evaluation and management for discharge planning, home equipment medica tions, and physician followup visits. If need be, additional help will be sought from the hospitalis t service and the GI service or Pulmonary Service. Ms. Rodríguez has barriers to discharge at this point. She has been in the hospital on multiple occa sions since her stroke in August 2023. Often times she may do well and then have urinary tract inf ection or have some difficulty maintaining her gains and therefore she may require admission to a [facility] where she has ongoing therapy instead of just going home and therefore that may be a barrier to her discharging home. Length Of Stay: About 10 days to 12 days. Disposition: Expected to be home with continued physical therapy and with family. Prognosis: Good. Rehab Specific Goals: 1.Become independent with upper and lower body dressing, donning and doffing footwear. 2.Independently mobilize a wheelchair 250 feet. 3.Independently ambulate at least 50 feet hospital distances. 4.Independently go up and down 5 steps. 5.She will independently perform cognitive functioning, safety awareness, medication management, phy sician followup. The above goals were reviewed with Nani Marcos and she is in agreement. By signing this document, I acknowledge I personally performed a full physical examination on Ms. Talia langston no later than 24 hours after her admission to the inpatient rehabilitation facility and determ ined that she is able to tolerate the above course of treatment at an intensive level for a reasonabl e period of time. A detailed individualized plan of care for her will be completed by hospital day 4 based on the preadmission screen, history and physical, and therapy evaluations. VENKATESH Voice ID: [id number]
[2024-04-09] MEDS: COENZYME Q10- 100 MG CAP PO SCH (09:48)
[2024-04-09] MEDS: DULOXETINE 30 MG CAP PO SCH (09:52)
[2024-04-09] MEDS: CRANBERRY FRUIT EXTRACT 200 MG CAP PO SCH (09:53)
[2024-04-09] MEDS ORDERED: ACETAMINOPHEN 500 MG TAB PO PRN (13:26)
[2024-04-09] MEDS: GABAPENTIN 100 MG CAP PO SCH (13:41)
[2024-04-09] MEDS: ACETAMINOPHEN 500 MG TAB PO SCH (13:41)
--- NOTE | 2024-04-10 00:25 | PN ---
Date of Progress Note: 04/09/2024 Time Of Market: 1:30 p.m. Subjective: Ms. Rodríguez is sitting in her room. She does have her shoulder strap in place. There was some pain radiating from the neck into the right arm and forearm and her daughter actually came up and made sure her right shoulder brace is in place. That pain is likely due to the dependent righ t arm, which is still significantly paretic and pulling in the brachial plexus. Exquisite pain cross ing the joint. She will have 2 pain patches placed on that area and gabapentin 100 mg a day added to her medication regimen. Her daughter would like to hold off on narcotic medications including trama dol. Review of Systems: Again some mild pain in the right upper extremity and shoulder and otherwise is mildly depressed mood , but that has been improved since she was previously admitted to the unit. Otherwise, no other posi tives on the systems review. Physical Examination: Vital Signs: Blood pressure 128/58, pulse 80, respiratory rate of 16, temperature 96.9, oxygen satu ration 97%. Weight 157 pounds, height 5 feet, BMI 30.7. General: Ms. Rodríguez is resting in a chair. She appears in no acute distress. HEENT: She is normocephalic, atraumatic. Anicteric sclerae. Oropharynx moist. Neck: Supple. Extremities: Right arm shoulder brace as she has very dense paresis, however, more moveme nt noted in the opening and closing of the fingers of the right hand. Otherwise, right lower extremi ty is stronger than the right upper extremity, but still significantly weak. 3+/5. Laboratory Studies: White blood cell count 9.3, hemoglobin 11.8, platelets 300. Blood sugars ranged from 167-176. Sodium 139, potassium 3.5, chloride 106, carbon dioxide 29, creatinine 0.57. Prealbu min 14.8, albumin 3.0. Urinalysis turbid clarity, pH 7.5, otherwise unremarkable. X-ray/imaging: No new x-rays or imaging. Medications: Tylenol Extra Strength 500 mg every 6 hours as needed, Eliquis 2.5 mg twice daily, Lipi tor 80 mg at bedtime, coenzyme Q10 300 mg daily, Colace 100 mg at bedtime, duloxetine 30 mg daily, Fi sh Oil 1000 mg daily, folic acid 1 mg daily, gabapentin 100 mg daily, hydrochlorothiazide 12.5 mg yennifer ly, Novolin insulin 70/30 sliding scale, lactobacillus 1 daily, lidocaine patch apply to just right s houlder daily, Prinivil 20 mg daily, melatonin 10 mg at bedtime, [place] Thyroid 30 mg daily. Progress Made With Physical, Occupational, And Speech Therapy: Today with physical therapy, she ambu lated with a platform walker 15 feet 6 times with moderate assistance. Mobilized a wheelchair 75 fee t with minimum assistance. Mhr-fm-bvfde transfers done moderate to maximal assistance multiple stand -to-pivot transfers with maximum assistance and idq-ws-ygpfm transfer in parallel bars done with mode rate to maximal assistance. With occupational therapy, maximum assistance for supine to sit transfer ; bathing, minimum assistance; upper and lower body dressing, moderate assistance. She did receive a speech evaluation, education with followup on a daily basis for half an hour with e [facility] session. The patient was noted in speech to be independent with expression, comprehension, 100% intelligible. She scored a 13 on the BIMS and 27 on the SLUMS indicating cognitive functioning withi n normal limits. Assessment: Ms. Rodríguez has done very well with her speech. She of course has significant paresis in the right upper extremity and lower extremity and needs moderate to maximum assist for many activ ities as noted. Ms. Rodríguez is a 78-year-old patient admitted to the rehabilitation unit with sequelae of stroke af fecting the left brain and right body. She has hypothyroidism, hypertension, dyslipidemia, anemia, m alnutrition, diabetes mellitus type 2, dysphagia, decreased physical functioning, decreased mobility. Plan: 1.Continue with physical, occupational, and speech therapy for 3.5 hours, 5 of 7 days. 2.Comorbid condition medications are continued including Eliquis, Lipitor, Colace, CoQ10, and other supplements and folic acid. She has [place] Thyroid, Prinivil, melatonin. Comorbidities That Are Impacting Rehabilitation: Her weakness of right upper extremity more than low er extremity, which is very difficult as she has to use that side for many activities. It is a chall enge for her to improve, but she is beginning to work hard with the therapists. LB/MODL Voice ID: [id number] Report ID: [id number]
[2024-04-10] MEDS: LIDOCAINE 4% PATCH TOP SCH (08:04)
--- NOTE | 2024-04-10 22:22 | PN ---
Subjective: Ms. Rodríguez is sitting in a chair. She is feeling somewhat better today, less pain in the right shoulder, where she has a shoulder brace which is following her stroke, where there is rekha y little tone and the arm can dangle and cause the pain. In addition, 2 pain patches are put in the shoulder and gabapentin was added. Objective: No fevers, chills, nausea, vomiting. Again, some reduced pain in the right shoulder. Mo od seems more upbeat and no other positives. Physical Examination: Vital Signs: Blood pressure 172/68, pulse 67, respiratory rate 17, temperature is 96.9, oxygen satur ation 95%. General: Again, Ms. Rodríguez is resting comfortably in a chair. Neuro: She does have the decreased right nasolabial fold and dense paresis in the right upper extrem ity. The hands do move slightly, very little ability to elevate the shoulder and flex biceps. Right lower extremity somewhat strong, but still significantly weak. No other changes identified. Laboratory Studies: Blood sugars ranged from 158 to 183. Note, her cultures from the showed E. coli and Citrobacter koseri. However, she did not have any symptoms of urinary tract infection. Th ere is no burning, urgency, frequency, dysuria. No new changes identified on her in terms of complai nts. The bacteria are jacobs sensitive to all antibiotics tested and she may benefit from a straight ca theterization or Speci-Cath urine collection to further rule out presence of urinary tract infection; however, it is noted that the urinalysis itself was only remarkable for turbid clarity and pH 7.5 an d was otherwise normal. X-ray/imaging: No new x-rays or imaging. Progress Made With Physical And Occupational Therapy: With her occupational therapy, she did tolerat e range of motion and stretching to right elbow, supination, pronation, extension, wrist extension wa s also tolerated well. She did have reposition shoulder and that did decrease her pain. With occupa tional therapy, ambulated 10 to 15 feet 6 times with moderate assistance. She mobilized a wheelchair 75 feet with minimum assistance. Sit to stand transfer, moderate to maximal assistance. She is cur rently not receiving speech therapy. Ms. Rodríguez is making fair progress so far with late effects of her stroke affecting the right uppe r extremity and her ability to transfer and mobilize and perform activities of daily living. Assessment And Plan: Ms. Rodríguez is a 78-year-old patient, admitted to the rehabilitation unit wit h late effects of her stroke, which affected left brain and right body. She has significant weakness in the right upper extremity. She had some pain in the right shoulder where the right arm was dangl ing. She has a shoulder brace on and medication adjustments have been made. She has Eliquis 2.5 mg twice daily for DVT prophylaxis, Tylenol Extra Strength for pain, Lipitor for dyslipidemia, COQ10 as a supplement. She has Colace for stool softening, Cymbalta for depression and neuropathic pain. Con tinue folic acid which may help reduce risk of stroke. Continue with gabapentin for neuropathic pain , hydrochlorothiazide for fluid management. She has insulin sliding scale 70/30 being used. She has Lactinex 1 tablet daily, lidocaine patch to apply, Prinivil 20 mg daily, melatonin for insomnia. Comorbidities That Are Impacting Rehabilitation: The potential urinary tract infection again should be observed for symptoms and treatment will be as appropriate. NINO/HODAN Voice ID: [id number] Report ID: [id number]
[2024-04-11 07:22] LABS: Absolute Eosinophils 0.2 K/uL (0-0.5); Absolute Lymphocytes (CBC) 3.7 K/uL (0.7-4.9); Absolute Monocytes 0.6 K/uL (0.1-1.3); Absolute Neutrophil 4.4 K/uL (1.8-8.0); Basophils % 0.4 % (0-1.3); Eosinophils % 2.5 % (0-4.4); Hematocrit 36.6 % (36.0-45.0); Hemoglobin 12.1 g/dL (12.0-15.0); Lymphocytes % 41.2 % (15.3-44.8); MCH 30.1 pg (27.0-35.0); MCV 91.3 fL (80-100); Monocytes % 7.1 % (3.3-12.3); Neutrophils % 48.8 % (41.7-73.7); Platelets 322 thou/uL (152-406); RBC Red Blood Cell Count 4.01 M/uL (3.86-4.86); Red Cell Distribution Width 14.7 % (12.1-15.2)
[2024-04-11 07:49] LABS: Albumin 3.1 g/dL (3.4-5.0); Anion Gap 6.7 mEq/L (5.0-15.0); Magnesium 1.7 mg/dL (1.6-2.4); Potassium 3.7 mEq/L (3.5-5.1); Prealbumin 21.6 mg/dL (20-40)
[2024-04-11] MEDS: DOCUSATE NA 100 MG CAP PO PRN (19:37)
[2024-04-11] MEDS: ACETAMINOPHEN 500 MG TAB PO SCH (19:38)
--- NOTE | 2024-04-11 20:46 | PN ---
Date of Progress Note: 04/11/2024 Time Of Service: 1 p.m. Subjective: Ms. Rodríguez is working with occupational therapy. She is more alert, upbeat, and smil ing today. Review of Systems: She denies any significant pain in the right shoulder. She has 2 pain patches placed and that is the hemiparetic side. Objective: No fevers, chills. Mild myalgias, arthralgias. No rash, headache, weight change. No ot her complaints on review of systems. Physical Examination: Vital Signs: Blood pressure 166/72, pulse 64, respiratory rate of 17, temperature 97.0, oxygen satur ation 94%. General: Ms. Rodríguez is sitting in a chair. HEENT: She is normocephalic, atraumatic. Sclerae anicteric. Oropharynx pink, moist. Neck: Supple. Chest: Clear. Extremities: No significant edema cyanosis or clubbing. Neurological: Decreased right nasolabial fold. Right upper extremity has significant paresis with s ome improvement in wrist flexion, extension, elevation, and grasp. No other changes. Laboratory Studies: Complete blood count with differential completely normal. Sodium 136, potassium 3.7, chloride 104, carbon dioxide 29, BUN 19, creatinine 0.73, glucose ranged from 164 to 177, calci um 8.9, magnesium 1.7, albumin 3.1, prealbumin 21.6. X-ray/imaging: No new x-rays or imaging. Medications: Medications have been reviewed and are unchanged compared to yesterday. Progress Made With Physical, Occupational, And Speech Therapy: With occupational therapy, completed bed mobility including turning in the bed with moderate assistance, completed multiple trials of sit- to-stand transfer with moderate assistance. Sgyjhu-ex-yxq transfers, moderate assistance. She ambul ated 40 feet with a right platform walker and additional 47 feet with moderate to maximum assistance. Propelled a wheelchair 40 feet twice with contact guard to minimum assistance and then another 50 f eet and 35 feet with contact guard assistance. With her occupational therapy, she self-propelled a w heelchair from the gym to the room with supervision, required maximum assistance pre and post toileti ng, clothing management, and hygiene after a bowel movement. Ms. Rodríguez is making fair overall progress with her physical and occupational therapy. Still requ ires significant help to perform basic activities of daily living including management of hygiene fol lowing bowel movements in addition to dressing lower body and upper body. Assessment: Ms. Rodríguez is a 78-year-old patient in the rehabilitation unit with late effects of s troke which affected her left brain and right body. She has improved shoulder pain which is due to w earing her brace in the left shoulder and applying 2 patches around the shoulder. She has dyslipidem ia and is on nystatin. She is on folic acid for stroke risk reduction, gabapentin for neuropathic pa in, hydrochlorothiazide for fluid management. She has insulin for diabetes mellitus, Prinivil for hy pertension, melatonin for insomnia, and gabapentin again for neuropathic pain. Comorbidities That Are Impacting Rehabilitation: She is managing her comorbidities better. They are not negatively impacting her rehabilitation and the pain is mitigated with multiple modalities, that is the right shoulder pain. NINO/HODAN Voice ID: [id number] Report ID: [id number]
--- NOTE | 2024-04-12 14:06 | P.RH.PN ---
Estimated Length of Stay: 22 Expected Discharge Date: 04/26/24 Discharge Disposition Plan: Home Family Support: Yes Nursing Home Goal: Mobility, Transfers, Self Care Vital Signs: Last Vital Signs Temp 97.2 F 04/12/24 08:00 Pulse 72 04/12/24 09:10 Resp 18 04/12/24 08:00 BP 156/74 H 04/12/24 09:10 Pulse Ox 94 04/12/24 08:00 Laboratory: Laboratory Last Values WBC 9.00 thou/uL (4.3-10.9) 04/11/24 06:21 RBC 4.01 M/uL (3.86-4.86) 04/11/24 06:21 Hgb 12.1 g/dL (12.0-15.0) 04/11/24 06:21 Hct 36.6 % (36.0-45.0) 04/11/24 06:21 MCV 91.3 fL (80-100) 04/11/24 06:21 MCH 30.1 pg (27.0-35.0) 04/11/24 06:21 MCHC 33.0 g/dL (32.0-36.0) 04/11/24 06:21 RDW 14.7 % (12.1-15.2) 04/11/24 06:21 Plt Count 322 thou/uL (152-406) 04/11/24 06:21 MPV 8.0 fL (7.6-11.3) 04/11/24 06:21 Neutrophils % 48.8 % (41.7-73.7) 04/11/24 06:21 Lymphocytes % 41.2 % (15.3-44.8) 04/11/24 06:21 Monocytes % 7.1 % (3.3-12.3) 04/11/24 06:21 Eosinophils % 2.5 % (0-4.4) 04/11/24 06:21 Basophils % 0.4 % (0-1.3) 04/11/24 06:21 Absolute Neutrophils 4.4 K/uL (1.8-8.0) 04/11/24 06:21 Absolute Lymphocytes 3.7 K/uL (0.7-4.9) 04/11/24 06:21 Absolute Monocytes 0.6 K/uL (0.1-1.3) 04/11/24 06:21 Absolute Eosinophils 0.2 K/uL (0-0.5) 04/11/24 06:21 Absolute Basophils 0.0 K/uL (0-0.5) 04/11/24 06:21 Sodium 136 mEq/L (136-145) 04/11/24 06:21 Potassium 3.7 mEq/L (3.5-5.1) 04/11/24 06:21 Chloride 104 mEq/L (98-107) 04/11/24 06:21 Carbon Dioxide 29 mEq/L (21-32) 04/11/24 06:21 Anion Gap 6.7 mEq/L (5.0-15.0) 04/11/24 06:21 BUN 19 mg/dL (7-18) H 04/11/24 06:21 Creatinine 0.73 mg/dL (0.55-1.02) 04/11/24 06:21 Est GFR (CKD-EPI) 85 ml/min (=/>90) L 04/11/24 06:21 Glucose 164 mg/dL (74-106) H 04/11/24 06:21 POC Glucose 170 mg/dL (65-120) H 04/12/24 11:19 Calcium 8.9 mg/dL (8.5-10.1) 04/11/24 06:21 Magnesium 1.7 mg/dL (1.6-2.4) 04/11/24 06:21 Albumin 3.1 g/dL (3.4-5.0) L 04/11/24 06:21 Prealbumin 21.6 mg/dL (20-40) 04/11/24 06:21 Urine Color Colorless (Yellow) 04/07/24 17:45 Urine Clarity Turbid (Clear) H 04/07/24 17:45 Urine pH 7.5 (5.0-7.0) H 04/07/24 17:45 Ur Specific [place] 1.013 (1.005-1.030) 04/07/24 17:45 Glucose (UA)(Auto) Negative (Negative) 04/07/24 17:45 Urine Ketones Negative (Negative) 04/07/24 17:45 Urine Blood Negative (Negative) 04/07/24 17:45 Urine Nitrite Negative (Negative) 04/07/24 17:45 Urine Bilirubin Negative (Negative) 04/07/24 17:45 Urine Urobilinogen Normal (Normal) 04/07/24 17:45 Ur Leukocyte Esterase Negative Jcarlos/uL (Negative) 04/07/24 17:45 Urine RBC <5 /HPF (None Seen) 04/07/24 17:45 Urine WBC 5-10 /HPF (<5) 04/07/24 17:45 Ur Squamous Epith Cells 5-10 /HPF (None Seen) 04/07/24 17:45 U Non-Squamous Epi Cells <5 /HPF (None Seen) 04/07/24 17:45 Urine Bacteria <20 /HPF (<20) 04/07/24 17:45 Urine Mucus Slight /HPF (None Seen) 04/07/24 17:45 Urine Total Protein Negative (Negative) 04/07/24 17:45 Weight: 157 lb 4.8 oz Wound Present: No Negative Pressure Wound Therapy Present: No Physician Update: Labs reviewed and are stable. Has left hip pain with mild spasms with ambulation. Marked right hemiplegia is unchanged. WC 50' x 2 up to 165' without stopping. At min assist with occupational therapy and ADLs. Wearing a right arm and forearm splint at night. Summary: Patient's care plan and oysterman goals have been reviewed and revised as necessary. Please see the Rehabilitation Signature page for all necessary signatures.
[2024-04-13] MEDS: BACLOFEN 10 MG TAB PO SCH (08:48)
[2024-04-13] MEDS: TURMERIC 500 MG PO SCH (08:48)
--- NOTE | 2024-04-16 17:29 | RAD REPORT ---
EXAM DESCRIPTION: RAD - Chest Single View - 04/16/2024 5:20 pm CLINICAL HISTORY: R/O PNA COMPARISON: Chest Single View dated 03/30/2024; Abdomen 1 View (KUB) dated 01/26/2024; Chest Single Vi ew dated 01/26/2024; Abdomen 1 View (KUB) dated 08/21/2023 FINDINGS: Lines: None. Lungs: No evidence of edema or pneumonia. Pleural: No significant pleural effusions or pneumothorax. Cardiac: The heart size is within normal limits. Mediastinum: Within normal limits. Bones: No acute fractures. ACDF in cervical spine. Other: None IMPRESSION: No acute cardiopulmonary disease.
[2024-04-16] MEDS: NITROFURAN MACRO 100 MG CAP PO SCH (20:18)
--- NOTE | 2024-04-17 00:08 | PN ---
Date of Progress Note: 04/16/2024 Time Of Service: 1:40 p.m. Subjective: Ms. Rodríguez is sitting in a chair beside the bed. She did work on her lunch and ate p erhaps 25%. She is feeling slightly better about her situation with the dense paresis of the right u pper and lower extremities. There is, however, possibility of urinary tract infection. Urinalysis a nd cultures suggest 2 bacteria present, the E coli and Citrobacter koseri, which are pansensitive. S he is treated now with the antibiotic Macrobid 100 mg twice daily for 5 days. Objective: Mild difficulty with urination and some discomfort as she urinates. Otherwise, no fevers or chills. Some myalgias of right upper extremity. No rash. No psychiatric issues except mild dep ression. Physical Examination: Vital Signs: Blood pressure 148/70, pulse of 79, respiratory rate 17, temperature 97.4, oxygen satur ation 97%. General: Ms. Rodríguez was sitting in a chair. HEENT: She does appear normocephalic, atraumatic. Sclerae anicteric. Oropharynx pink, moist. Neck: Supple. Extremities: Her right upper and lower extremities show significant weakness from her stroke. Assessment: She has some issues again with urinary urgency and frequency, is on antibiotics. She butcher s on board gabapentin for neuropathic pain. She is treated for diabetes, for hypertension, insomnia, for fluid management as well. Plan: 1.Continue with physical, occupational, and speech therapy for 3.5 hours, 5 of 7 days. 2.Continue all comorbid condition medications which are indicated. Comorbidities That Are Impacting Rehabilitation: She again has multiple comorbidities, but she is no w at her baseline as her stroke was actually last year and she is adjusting to the new parameters preston und which she could safely transfer/mobilize. Progress Made With Physical, Occupational, And Speech Therapy: Today, with physical therapy, she mob ilized 50 feet with a rolling walker with the physical therapist at her side to slide her foot on the floor. Wheelchair mobilization, she covered 65 feet twice with minimum assistance. [facility] , she did another 75 feet of ambulation with moderate assistance and she is doing this with a platfo rm walker. With our occupational therapy, partial assistance for toilet hygiene and contact guard as sistance to wipe perianal region. NINO/HODAN Voice ID: [id number] Report ID: [id number]
[2024-04-17] MEDS ORDERED: INSULIN 70/30 100 UNITS/ML SQ SCH (08:13)
[2024-04-17] MEDS: INSULIN 70/30 100 UNITS/ML SQ SCH (09:07)
--- NOTE | 2024-04-17 20:38 | PN ---
Date of Progress Note: 04/17/2024 Time Of Service: 1:40 p.m. Subjective: Ms. Rodríguez is sitting in a chair, more smiling today. She still has of course dense paresis in right upper and more than lower extremity. She has a shoulder brace in place and they rol led towel in the right hand to help reduce contracture. She is on antibiotics for urinary tract infe ction with 2 bacteria sensitive to Macrobid. Objective: Again, mild difficulty with urination and discomfort as noted, but that is improving. Mi ld myalgias, arthralgias, and some evidence of depression, but improving. Physical Examination: Vital Signs: Blood pressure 136/62, pulse 63, respiratory rate 17, temperature 97.2, oxygen saturati on 93%. General: Ms. Rodríguez sits in a chair beside bed in between therapy sessions. HEENT: She is normocephalic, atraumatic. Sclerae anicteric. Oropharynx pink and moist. Neck: Supple. Extremities: Right upper extremity, significant dense paresis. Right lower extremity, 2/5. Right f brody, mild decrease in right nasolabial fold. Laboratory Studies: Blood sugars ranged 118 to 164. X-ray/imaging: Chest x-ray done yesterday, study showed no acute abnormalities of the cardiopulmonar y area. No effusion. Heart size within normal limits with the mediastinum within normal limits. No acute cardiopulmonary disease identified. Medications: Medications have been reviewed. She does have the insulin sliding scale on board. Of course, no other changes. Progress Made With Physical And Occupational Therapy: With physical therapy, multiple biu-be-zffov t ransfers with moderate to minimum assistance. Worked on leaning proper with proper posture. Gait, s he covered 35 feet with contact guard assistance. The patient stood her right foot forward better wi thout assistance. She propelled a wheelchair 10 feet 10 times. With occupational therapy, bathing m inimum assistance. She did have fatigue and was able to wash 9 of 10 body parts. Upper body dressin g, no assistance. She is not currently receiving speech therapy. However, due to the hypophonia and dysarthria, she wi ll be picked up by Speech Therapy and improve those parameters. Assessment: Ms. Rodríguez is a 78-year-old patient admitted to the rehabilitation unit with late eff ects of stroke that affected left brain, right body with dense paresis, right upper more than lower e xtremity. She has urinary tract infection. She is on antibiotics, Macrobid, and 2 bacteria and they are sensitive to multiple antibiotics including Macrobid. She has hypertension, diabetes mellitus. In addition, she has insomnia with depression and neuropathic pain. Plan: 1.Continue with physical, occupational, and speech therapy 3.5 hours, 5 of 7 days. 2.Continue all comorbid condition medications including Macrobid for urinary tract infection, [place] Thyroid for hypothyroidism, melatonin for insomnia, Prinivil for hypertension, lidocaine patch for p ain, insulin sliding scale, fish oil, Cymbalta, Colace, COQ10, muscle relaxant, Eliquis, Tylenol. Comorbidities That Are Impacting Rehabilitation: The urinary tract infection is a potential comorbid impacting her rehabilitation and that again is addressed plus she has antidepressant on board. She has DVT prophylaxis and those we will continue and she has a brace on the right shoulder. NINO/HODAN Voice ID: [id number] Report ID: [id number]
[2024-04-18 07:32] LABS: Absolute Eosinophils 0.1 K/uL (0-0.5); Absolute Lymphocytes (CBC) 3.7 K/uL (0.7-4.9); Absolute Monocytes 0.6 K/uL (0.1-1.3); Absolute Neutrophil 5.1 K/uL (1.8-8.0); Basophils % 0.3 % (0-1.3); Eosinophils % 1.5 % (0-4.4); Hemoglobin 12.2 g/dL (12.0-15.0); Lymphocytes % 38.6 % (15.3-44.8); MCH 31.2 pg (27.0-35.0); MCHC 33.8 g/dL (32.0-36.0); MCV 92.1 fL (80-100); MPV 7.9 fL (7.6-11.3); Monocytes % 6.2 % (3.3-12.3); Neutrophils % 53.4 % (41.7-73.7); Platelets 329 thou/uL (152-406); RBC Red Blood Cell Count 3.91 M/uL (3.86-4.86); Red Cell Distribution Width 14.6 % (12.1-15.2)
[2024-04-18 08:01] LABS: Albumin 3.2 g/dL (3.4-5.0); Anion Gap 7.9 mEq/L (5.0-15.0); Magnesium 1.6 mg/dL (1.6-2.4); Potassium 3.9 mEq/L (3.5-5.1)
--- NOTE | 2024-04-18 22:16 | PN ---
Date of Progress Note: 04/18/2024 Time Of Service: 1:40 p.m. Subjective: Ms. Rodríguez is resting in a chair, doing well today in terms of her mood, still soft-s poken with low tone of voice. She is seeing Speech Pathology, which she says is helpful so far, [place] [place] treatment for urinary tract infection ongoing. Objective: No significant fevers, chills, myalgias, arthralgias, rash. No other complaints. Physical Examination: Vital Signs: Blood pressure 136/63, pulse 65, respiratory rate 16, temperature 97.3, oxygen saturati on 95%. General: Ms. Rodríguez is resting in bed. She is in no acute distress. HEENT: She appears normocephalic, atraumatic. Sclerae anicteric. Oropharynx pink, moist. Neck: Supple. Chest: Clear. Extremities: She does have of course dense paresis in the right upper extremity, which is stroke aff ected side, some decrease in her right nasolabial fold. Laboratory Studies: Complete blood count with differential is completely normal. Sodium slightly lo w at 135, potassium 3.9, chloride 103, carbon dioxide 28, BUN 17, creatinine 0.56, glucose ranged fro m 151 to 208, calcium 9.4, magnesium 1.6, albumin 3.2, prealbumin 19.0. X-ray/imaging: No new x-rays or imaging. Medications: Medications have been reviewed. She is on Tylenol, Eliquis, Lipitor, baclofen, COQ10, Colace, Cymbalta for depression, fish oil, gabapentin, hydrochlorothiazide, Macrobid antibiotic, Prin ivil, lidocaine patch, and probiotics. She does have an insulin sliding scale on board. Progress Made With Physical, Occupational, And Speech Therapy: She did require partial assistance fo r toilet hygiene, assistance need to pull up the lower extremity clothes, moderate assistance for sup ine-to-sit transfer, minimum assistance for sit to stand and pivot transfers, to toilet and shower wi th grab bars. With speech, she did work on maximum phonation, ranged between 8 to 48 seconds, demons trated reduced loudness with trailing off speech and working with therapy now to help improve her [place]. With occupational therapy, multiple gli-km-ydkmh moderate to minimum assistance. Ambulated 35 feet with contact guard assistance. Propelled a wheelchair 10 feet in 10 trials, min assist requi red. Ms. Rodríguez is making fair overall progress with her recovery from the sequelae of her remote strok annie. Assessment: Ms. 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 She is moving towards her baseline. She is treated for urin cas[place] tract infection with Macrobid. She has hypertension, diabetes mellitus, dyslipidemia, depression , neuropathic pain. Plan: 1.Continue with physical, occupational, and speech therapy for 3.5 hours, 5 of 7 days. 2.She has multiple comorbid conditions including for depression, hypertension, for blood sugar manag ement, for pain, for hypothyroidism. Those are all continued. Comorbidities That Are Impacting Rehabilitation: She is now treated for urinary tract infection. Daniel valencia does have some tendency to not exercise much when she is not in a rehabilitation unit and has actua lly resulted in some rehospitalization. After discharge, continue therapy as recommended for an exte nded period of time to help her return to a good level of functioning and to help prevent rehospitali zation. NINO/HODAN Voice ID: [id number] Report ID: [id number]
--- NOTE | 2024-04-19 14:15 | P.RH.PN ---
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, Self Care Vital Signs: Last Vital Signs Temp 96.6 F L 04/19/24 08:00 Pulse 73 04/19/24 09:27 Resp 14 04/19/24 08:00 BP 142/66 H 04/19/24 09:27 Pulse Ox 95 04/19/24 08:00 Laboratory: Laboratory Last Values WBC 9.60 thou/uL (4.3-10.9) 04/18/24 06:40 RBC 3.91 M/uL (3.86-4.86) 04/18/24 06:40 Hgb 12.2 g/dL (12.0-15.0) 04/18/24 06:40 Hct 36.0 % (36.0-45.0) 04/18/24 06:40 MCV 92.1 fL (80-100) 04/18/24 06:40 MCH 31.2 pg (27.0-35.0) 04/18/24 06:40 MCHC 33.8 g/dL (32.0-36.0) 04/18/24 06:40 RDW 14.6 % (12.1-15.2) 04/18/24 06:40 Plt Count 329 thou/uL (152-406) 04/18/24 06:40 MPV 7.9 fL (7.6-11.3) 04/18/24 06:40 Neutrophils % 53.4 % (41.7-73.7) 04/18/24 06:40 Lymphocytes % 38.6 % (15.3-44.8) 04/18/24 06:40 Monocytes % 6.2 % (3.3-12.3) 04/18/24 06:40 Eosinophils % 1.5 % (0-4.4) 04/18/24 06:40 Basophils % 0.3 % (0-1.3) 04/18/24 06:40 Absolute Neutrophils 5.1 K/uL (1.8-8.0) 04/18/24 06:40 Absolute Lymphocytes 3.7 K/uL (0.7-4.9) 04/18/24 06:40 Absolute Monocytes 0.6 K/uL (0.1-1.3) 04/18/24 06:40 Absolute Eosinophils 0.1 K/uL (0-0.5) 04/18/24 06:40 Absolute Basophils 0.0 K/uL (0-0.5) 04/18/24 06:40 Sodium 135 mEq/L (136-145) L 04/18/24 06:40 Potassium 3.9 mEq/L (3.5-5.1) 04/18/24 06:40 Chloride 103 mEq/L (98-107) 04/18/24 06:40 Carbon Dioxide 28 mEq/L (21-32) 04/18/24 06:40 Anion Gap 7.9 mEq/L (5.0-15.0) 04/18/24 06:40 BUN 17 mg/dL (7-18) 04/18/24 06:40 Creatinine 0.56 mg/dL (0.55-1.02) 04/18/24 06:40 Est GFR (CKD-EPI) 95 ml/min (=/>90) 04/18/24 06:40 Glucose 173 mg/dL (74-106) H 04/18/24 06:40 POC Glucose 184 mg/dL (65-120) H 04/19/24 12:26 Calcium 9.4 mg/dL (8.5-10.1) 04/18/24 06:40 Magnesium 1.6 mg/dL (1.6-2.4) 04/18/24 06:40 Albumin 3.2 g/dL (3.4-5.0) L 04/18/24 06:40 Prealbumin 19.0 mg/dL (20-40) L 04/18/24 06:40 Urine Color Colorless (Yellow) 04/07/24 17:45 Urine Clarity Turbid (Clear) H 04/07/24 17:45 Urine pH 7.5 (5.0-7.0) H 04/07/24 17:45 Ur Specific [place] 1.013 (1.005-1.030) 04/07/24 17:45 Glucose (UA)(Auto) Negative (Negative) 04/07/24 17:45 Urine Ketones Negative (Negative) 04/07/24 17:45 Urine Blood Negative (Negative) 04/07/24 17:45 Urine Nitrite Negative (Negative) 04/07/24 17:45 Urine Bilirubin Negative (Negative) 04/07/24 17:45 Urine Urobilinogen Normal (Normal) 04/07/24 17:45 Ur Leukocyte Esterase Negative Jcarlos/uL (Negative) 04/07/24 17:45 Urine RBC <5 /HPF (None Seen) 04/07/24 17:45 Urine WBC 5-10 /HPF (<5) 04/07/24 17:45 Ur Squamous Epith Cells 5-10 /HPF (None Seen) 04/07/24 17:45 U Non-Squamous Epi Cells <5 /HPF (None Seen) 04/07/24 17:45 Urine Bacteria <20 /HPF (<20) 04/07/24 17:45 Urine Mucus Slight /HPF (None Seen) 04/07/24 17:45 Urine Total Protein Negative (Negative) 04/07/24 17:45 Weight: 157 lb 4.8 oz Wound Present: No Closed Surgical Incision Present: No Negative Pressure Wound Therapy Present: No Physician Update: Labs reviewed and are stable. She has dense right upper more than lower extremity weakness. She is on antibiotics for UTI. Min assist with transfers, toilet and pivot. Walking 96' min assist [employer] platform walker. and wants to do outpatient PT and OT with [facility]. SLUMS 27, deficits in breath support. Working on phonation. Bed mobility min assist. RW mod assist. WC 250' CGA. Met 3/5 LTG and 4/4 STG. 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 Please see the Rehabilitation Signature page for all necessary signatures.
[2024-04-21] MEDS: DOCUSATE NA 100 MG CAP PO SCH (19:37)
--- NOTE | 2024-04-23 00:05 | PN ---
Date of Progress Note: 04/22/2024 Time Of Service: 1:30 p.m. Subjective: Ms. Armenta is sitting in a chair. She is smiling, more happy today. She denies any significant pain in the right shoulder. There is some more pain in the left shoulder which she is us ing more as the right side is weak and has the shoulder brace. Objective: Again, mild left shoulder pain. Otherwise, no other pain complaints anywhere else and no other complaints on a 10-point systems review. Physical Examination: Vital Signs: Blood pressure 187/74, pulse 66, respiratory rate of 16. Note, earlier today, blood pr essure 137/60. General: Ms. Rodríguez again is sitting in a chair beside bed. She has a smile on her face. Her da ughter just left the room and the right shoulder has a brace. HEENT: Otherwise, she is normocephalic, atraumatic. Sclerae anicteric. Oropharynx moist. Neck: Supple. Chest: Clear. Extremities: Mild edema in the right lower extremity. Laboratory Studies: Blood sugars ranged from 160 to 196. X-ray/imaging: No new x-rays or imaging. Medications: Medications have been reviewed. She is continuing antibiotics as noted for urinary tra ct infection. Otherwise, medications are unchanged. Progress Made With Physical, Occupational, And Speech Therapy: With her speech therapy today, she wa s able to phonate with vowels maximal of 62 decibel level, maintain at least 55 decibel level 90% of the time. She continued to practice voice reduction techniques. With her occupational therapy, she required partial assistance for lvcvwy-ks-iye transfers and from edge of bed to wheelchair to toilet transfers with the grab bar also for mnk-vy-cfsio transfers. She had lower body dressing with the us e of assistive device, working with that encouragement, required assistance needed to clean her perin eal area. Assessment: Ms. Rodríguez is a 78-year-old patient in the rehabilitation unit with sequelae of strok e affecting left brain and right body. She has urinary tract infection and multiple comorbid conditi ons including dyslipidemia, diabetes mellitus, depression, urinary tract infection, of course hyperte nsion and hypothyroidism. Plan: 1.Continue with physical, occupational, and speech therapy for 3.5 hours, 5 of 7 days. 2.Her list of medications as noted will be continued. 3.She is set for discharge soon. She should continue aggressive therapy. Ideally, if she has trans portation outpatient to minimize the risk of rehospitalization and worsening. NINO/HODAN Voice ID: [id number] Report ID: [id number]
[2024-04-23] MEDS: ACETAMINOPHEN 500 MG TAB PO PRN (14:31)
--- NOTE | 2024-04-23 22:12 | PN ---
Date of Progress Note: 04/23/2024 Time Of Service: 1:30 p.m. Subjective: Ms. Armenta is sitting in a chair. She enjoyed her lunch. She almost all gone. She is happy and smiling. Has no significant new complaints. Still mild pain in the left and right shou lder, but that is helped by the brace and pain patches. Objective: No fevers, chills. Mild myalgias, arthralgias. No rash. No psychiatric complaints. Physical Examination: Vital Signs: Blood pressure 145/75, pulse 71, respiratory rate 16, temperature 97.1, O2 saturation 9 6%. General: Ms. Rodríguez is resting comfortably in a chair. Extremities: She has dense paresis in the right upper extremity that has not improved. She has a brace in the right hand. Right lower extremity shows more improvement 3 to 4/5. Left side still strong. Face: Decreased nasolabial fold on the right side and that is unchanged. Laboratory Studies: Blood sugars ranged from 163 to 174. X-ray imaging, no new x-rays or imaging. Progress Made With Physical, Occupational, And Speech Therapy: Today with physical therapy, she mobi lized with wheelchair 250 feet with modified independence. She did require some supervision at 1 poi nt and she was able to do npo-gf-zsimm transfers from multiple of minimum assistance. She did stand with supervision, 3 minutes. With her occupational therapy, maximum assistance takeoff brief, use of toilet. Minimum assist to clean perineal area, minimum assistance for showering, minimum assist for upper body dressing, contact guard assistance for toilet transfer using grab bars. She did have an average of 33 decibels of vocal loudness which was slightly lower from her previous session. She did require some verbal cues to help with breathing and speech volume support. Ms. Rodríguez is making fair progress overall with physical and occupational therapy. She still has the hypo-phonation and is working with speech pathology, mobilizing in a better way. Assessment: Ms. Rodríguez is a 78-year-old patient in rehabilitation unit with sequelae of stroke af fecting left brain, right body. She does have hypo phonation, multiple comorbidities including decre ased mobility, decreased physical functioning, depression, diabetes mellitus, urinary tract infection , hypertension, hypothyroidism, dyslipidemia. Plan: 1.Continue with physical, occupational, speech therapy 3.5 hours, 5 of 7 days. 2.Her list of medications have been continued including for her urinary tract infection, baclofen fo r muscle spasm, COQ10. Continue with Colace, duloxetine, Fish Oil, Tylenol, Eliquis, Lipitor, gabape ntin for neuropathic pain, lactobacillus, probiotics, Prinivil for blood pressure management, [place] Thyroid for hypothyroidism, melatonin for insomnia. Comorbidities That Are Impacting Rehabilitation: Hypophonia makes it slightly difficult to communica te very effectively, but she is working with speech to enunciate and improve her loudness of speech. Content of speech intact. LB/MODL Voice ID: [id number] Report ID: [id number]
[2024-04-24] MEDS: BACLOFEN 10 MG TAB PO SCH (20:08)
[2024-04-24] MEDS: GABAPENTIN 100 MG CAP PO SCH (20:10)
[2024-04-25 06:09] LABS: Absolute Eosinophils 0.2 K/uL (0-0.5); Absolute Lymphocytes (CBC) 3.7 K/uL (0.7-4.9); Absolute Monocytes 0.6 K/uL (0.1-1.3); Absolute Neutrophil 5.5 K/uL (1.8-8.0); Basophils % 0.4 % (0-1.3); Eosinophils % 1.6 % (0-4.4); Hematocrit 33.1 % (36.0-45.0); Hemoglobin 11.6 g/dL (12.0-15.0); MCV 91.5 fL (80-100); MPV 7.4 fL (7.6-11.3); Monocytes % 6.2 % (3.3-12.3); Neutrophils % 54.8 % (41.7-73.7); Nucleated Red Blood Cells % 0.1 % (0-0); Platelets 340 thou/uL (152-406); RBC Red Blood Cell Count 3.62 M/uL (3.86-4.86); Red Cell Distribution Width 14.3 % (12.1-15.2)
[2024-04-25 06:49] LABS: Albumin 3.2 g/dL (3.4-5.0); Anion Gap 8.8 mEq/L (5.0-15.0); Magnesium 1.6 mg/dL (1.6-2.4); Potassium 3.8 mEq/L (3.5-5.1); Prealbumin 17.5 mg/dL (20-40)
[2024-04-25] MEDS: MAGNESIUM OXIDE 400 MG TAB PO SCH (20:46)
--- NOTE | 2024-04-25 22:33 | PN ---
Date of Progress Note: 04/25/2024 Time Of Service: 1:35 p.m. Subjective: Ms. Rodríguez is sitting in a chair finished her lunch. She is happy with all of her th erapy and will be ready for discharge the weekend where she will continue therapy via Home Health. Review of Systems: She denies any significant pain in the right forearm where there was lot of pain. She does have some topicals that are very helpful. No other complaints. Physical Examination: Vital Signs: Blood pressure 137/65, pulse 66, respiratory rate of 17, temperature 97.6, oxygen satur ation 98%. General: Ms. Rodríguez again is resting comfortably in a chair. HEENT: She is normocephalic, atraumatic. Sclerae anicteric. Oropharynx pink and moist. Neck: Supple. Extremities: Right upper extremity dense paresis. Some shoulder movement is noted. Left side has w ith movement. Right lower extremity around 3 to 4/5 unchanged. Laboratory Studies: White blood cell count 10.0, hemoglobin 11.6, platelets 340. Sodium 136, potass ium 3.8, chloride 103, carbon dioxide 28, BUN 19, creatinine 0.55, glucose ranged from 150 to 181, ca lcium 9.5, magnesium 1.6, albumin 3.2, prealbumin 17.5. X-ray/imaging: No new x-rays or imaging. Medications: Medications have been reviewed and are unchanged. Progress Made With Physical, Occupational, And Speech Therapy: Today with physical therapy, she comp leted multiple simulated car transfers and did so with contact guard assistance. She mobilized a whe elchair 250 feet with minimum assistance and another 250 feet with minimum to standby assistance. annie did require some help with the directions and at another point she actually mobilized 250 feet with modified independence on a leveled surface. With occupational therapy, contact guard assistance for [id number] transfers and toilet and shower transfers, required minimum assistance for bathing, especially washing and drying, left upper extremi ty and buttocks. Minimum assistance for upper body dressing. She did fatigue while doing the shower . With speech for hypo-phonation, she did have a BIMS score, it was 50/15 and the SLUMS score 29/30, which these are both normal. Ms. Rodríguez is making excellent progress with physical, occupational, and speech therapy, will be g [facility] home, and she will continue therapy via Home Health. Comorbidities are stably managed, pain is managed. Assessment: Ms. Rodríguez is a 78-year-old patient with sequelae of stroke affecting left brain and right body. She has decreased mobility, decreased physical functioning, diabetes mellitus, depressio n, urinary tract infection, hypertension, hypothyroidism, dyslipidemia. Plan: She will continue with physical, occupational, and speech therapy until discharge. She will c ontinue with all comorbid condition medications which are noted. She is doing excellent as noted and is ready for discharge and continuing therapy via Home Health. Comorbidities That Are Impacting Rehabilitation: She does have some improvement in her loudness of s peech. She has excellent results in terms of her cognition, in terms of the BIMS and the SLUMS score being normal. Again, ready for discharge tomorrow and will continue therapy via Home Health. VENKATESH Voice ID: [id number] Report ID: [id number]
[2024-04-26 07:00] VITALS: BP 127/62; TEMP 96.8
== END 2024-04-26 10:30 | disposition home or self-care (01) | DRG 57 ==
LOC: 5TH 04-07 15:05
PROVIDERS: ADMIT Psychiatry & Neurology Neurology with Special Qualifications in Child Neurology; ATTEND Psychiatry & Neurology Neurology with Special Qualifications in Child Neurology
DX: I69.351 Hemiplegia and hemiparesis following cerebral infarction affecting right dominant side (principal); E44.1 Mild protein-calorie malnutrition; N39.0 Urinary tract infection, site not specified; I69.328 Other speech and language deficits following cerebral infarction; I69.322 Dysarthria following cerebral infarction; I69.391 Dysphagia following cerebral infarction; M79.10 Myalgia, unspecified site; E03.9 Hypothyroidism, unspecified; M25.50 Pain in unspecified joint; F41.9 Anxiety disorder, unspecified; M81.0 Age-related osteoporosis without current pathological fracture; G47.00 Insomnia, unspecified; K21.9 Gastro-esophageal reflux disease without esophagitis; E11.9 Type 2 diabetes mellitus without complications; R13.10 Dysphagia, unspecified; E78.5 Hyperlipidemia, unspecified; D64.9 Anemia, unspecified; Z68.30 Body mass index [BMI] 30.0-30.9, adult; F32.A Depression, unspecified
CPT/HCPCS: 36415; 71045; 80048; 81001; 82040; 82947; 83735; 84134; 85025; 87077; 87086; 87088; 87186; 92507; 92523; 94010; 97110; 97112; 97116; 97124; 97129; 97140; 97163; 97165; 97530; 97542; 97760; J1815; J2001

== ENCOUNTER 2024-08-18 16:15 | Emergency (ER) | payer OTHER ==
[2024-08-18 17:39] LABS: Absolute Basophils 0.1 K/uL (0-0.5); Absolute Eosinophils 0.1 K/uL (0-0.5); Absolute Lymphocytes (CBC) 2.8 K/uL (0.7-4.9); Absolute Monocytes 0.6 K/uL (0.1-1.3); Basophils % 0.6 % (0-1.3); Eosinophils % 1.1 % (0-4.4); Hematocrit 37.8 % (36.0-45.0); Hemoglobin 12.8 g/dL (12.0-15.0); Lymphocytes % 32.6 % (15.3-44.8); MCH 32.1 pg (27.0-35.0); MCHC 33.8 g/dL (32.0-36.0); MCV 94.8 fL (80-100); MPV 7.4 fL (7.6-11.3); Neutrophils % 58.7 % (41.7-73.7); Platelets 312 thou/uL (152-406); RBC Red Blood Cell Count 3.98 M/uL (3.86-4.86); Red Cell Distribution Width 13.6 % (12.1-15.2)
--- NOTE | 2024-08-18 17:44 | RAD REPORT ---
EXAM: Chest Single View HISTORY: PRODUCTIVE COUGH COMPARISON: 04/16/2024 FINDINGS: LUNGS/PLEURA: The lungs are clear. No pleural effusions or pneumothorax. No pulmonary edema. MEDIASTINUM: The mediastinal silhouette is within normal limits. CARDIAC: The cardiac silhouette is within normal limits. UPPER ABDOMEN: No significant abnormality. BONES: No acute fracture. ACDF in the cervical spine. LINES/TUBES/OTHER: N/A IMPRESSION: No evidence of acute cardiopulmonary disease.
[2024-08-18 17:55] LABS: PT Prothrombin Time 12.9 SECONDS (9.4-12.5); Protime INR 1.16
[2024-08-18 18:02] LABS: Albumin 3.3 g/dL (3.4-5.0); Albumin/Globulin Ratio 0.8 (1.1-1.8); Anion Gap 9.7 mEq/L (5.0-15.0); Bilirubin Total 0.2 mg/dL (0.2-1.0); Globulin 3.9 g/dL (2.3-3.5); Potassium 3.7 mEq/L (3.5-5.1); Protein, Total 7.2 g/dL (6.4-8.2); Troponin High Sensitivity 4.5 pg/mL (<58.9)
[2024-08-18] MEDS ORDERED: NA CHLORIDE 0.9% 500 ML ONE (19:16)
[2024-08-18 19:23] LABS: Urine Bilirubin NEGATIVE (Negative); Urine Blood Negative (Negative); Urine Clarity Clear (Clear); Urine Color Colorless (Yellow); Urine Glucose NEGATIVE (Negative); Urine Ketones NEGATIVE (Negative); Urine Microscopic Reflex YN NO UMIC; Urine Nitrite NEGATIVE (Negative); Urine Protein NEGATIVE (Negative); Urine Urobilinogen Normal (Normal)
--- NOTE | 2024-08-18 19:27 | EDPHYS ---
Physician Documentation [facility] Name: Kathi Rodríguez Age: 78 yrs Sex: Female : 1945 Arrival Date: 08/18/2024 Time: 16:15 Bed 5 Private MD: ED Physician Lucila Stinson HPI: 08/18 17:17 This 78 yrs old Female presents to ER via Wheelchair with complaints of Chest dr5 Congestion. 17:17 Pt reports chest congestion and cough that's been going on for the past 3-[address]5 has hx of DM, Hyperlipidemia, HTN, and CVA with right sided deficits.. Historical: - Allergies: 16:33 Levaquin; aa5 16:33 Iodine; aa5 - PMHx: 16:33 diabetes mellitus; Hypercholesterolemia; Hypertensive disorder; Right sided weakness aa5 from previous CVA (Unknown); stroke (July 2023); thyroid disease; - Immunization history:: Adult Immunizations unknown. - Infectious Disease History:: Denies. - Social history:: Smoking status: Patient denies any tobacco usage or history of. ROS: 17:17 Constitutional: as per hpi dr5 Exam: 17:17 Constitutional: This is a well developed, well nourished patient who is awake, alert, dr5 and in no acute distress. Head/Face: Normocephalic, atraumatic. ENT: Nares patent. No nasal discharge, no septal abnormalities noted. Tympanic membranes are normal and external auditory canals are clear. Oropharynx with no redness, swelling, or masses, exudates, or evidence of obstruction, uvula midline. Mucous membranes moist. Neck: Trachea midline, no thyromegaly or masses palpated, and no cervical lymphadenopathy. Supple, full range of motion without nuchal rigidity, or vertebral point tenderness. No Meningismus. Chest/axilla: Normal chest wall appearance and motion. Nontender with no deformity. No lesions are appreciated. Cardiovascular: Regular rate and rhythm with a normal S1 and S2. Normal PMI, no JVD. No pulse deficits. Respiratory: Lungs have equal breath sounds bilaterally, clear to auscultation. No rales, rhonchi or wheezes noted. No increased work of breathing, no retractions or nasal flaring. Back: No spinal tenderness. No costovertebral tenderness. Full range of motion. Skin: Warm, dry with normal turgor. Normal color with no rashes, no lesions, and no evidence of cellulitis. Neuro: Awake and alert, GCS 15, oriented to person, place, time, and situation. Cranial nerves II-XII grossly intact. Motor strength 5/5 in all extremities. Sensory grossly intact. Cerebellar exam normal. Normal gait. Vital Signs: 16:34 BP 140 / 75; Pulse 71; Resp 18 S; Temp 98.5(O); Pulse Ox 96% on R/A; Weight 88.45 kg aa5 (R); Height 5 ft. 0 in. (R); 17:53 BP 124 / 59; Pulse 70; Resp 18; Pulse Ox 96% on R/A; ph 18:57 BP 127 / 61; Pulse 65; Resp 18; Pulse Ox 97% on R/A; ph 19:47 BP 134 / 60; Pulse 61; Resp 18; Pulse Ox 97% ; cp4 16:34 Body Mass Index 38.08 (88.45 kg, 152.4 cm) aa5 MDM: 16:37 Medical Screening Exam initiated dr5 19:26 Differential diagnosis: viral Infection, bacterial infection, URI. Data reviewed: vital dr5 signs, nurses notes. Consideration of Admission/Observation Escalation of care including admission/observation considered. Considered admission if patient had elevated troponin, UTI causing AMS.. 19:31 Counseling: I had a detailed discussion with the patient and/or guardian regarding the dr5 historical points, exam findings, and any diagnostic results supporting the discharge/admit diagnosis, the presence of at least one elevated blood pressure reading (>120/80) during this emergency department visit, lab results, radiology results, the need for outpatient follow up, for definitive care, a family practitioner, to return to the emergency department if symptoms worsen or persist or if there are any questions or concerns that arise at home. Medication response: Fluids. Response to treatment: the patient's symptoms have resolved after treatment. ED course: Daughter at bedside. Patient reports she is feeling much better and wants to go home. Results went over with patient, printed out and given to daughter. No urinary tract infection noted. All labs are unremarkable. Well-appearing on discharge. Recommended returning to ER if anything changes. Patient denies chest pain, shortness of breath, or any symptoms at discharge.. 08/18 16:36 Order name: CBC with Diff; Complete Time: 17:45 [facility] 08/18 16:36 Order name: CMP; Complete Time: 18:07 dr5 08/18 16:36 Order name: Troponin High Sensitivity; Complete Time: 18:07 [facility] 08/18 16:36 Order name: PT-INR; Complete Time: 17:56 [facility] 08/18 16:36 Order name: Urinalysis w/ reflexes; Complete Time: 19:25 [facility] 08/18 16:36 Order name: Chest Single View XRAY; Complete Time: 17:45 [facility] 08/18 16:36 Order name: EKG - Nurse/Tech; Complete Time: 17:50 dr5 08/18 16:36 Order name: Cardiac monitoring; Complete Time: 17:33 dr5 08/18 16:36 Order name: IV Saline Lock; Complete Time: 17:33 [facility] 08/18 16:36 Order name: Labs collected and sent; Complete Time: 17:33 [facility] 08/18 16:36 Order name: O2 Per Protocol; Complete Time: 17:33 [facility] 08/18 16:36 Order name: O2 Sat Monitoring; Complete Time: 17:33 dr5 EC:40 Rate is 67 beats/min. Rhythm is regular. QRS [place] is Normal. CO interval is normal at dr5 188 msec. QRS interval is normal at 82 msec. QT interval is normal at 378 msec. Administered Medications: 19:24 Drug: NS 0.9% IV 500 ml IV at bolus once; to be given as a bolus over 30 minutes Route: al5 IV; Rate: bolus; Site: right wrist; 19:49 Follow up: IV Status: Completed infusion cp4 Disposition Summary: 08/18/24 19:27 Discharge Ordered Notes: Location: Home dr5 Condition: Stable dr5 Diagnosis - Nasal congestion dr5 - Acute upper respiratory infection, unspecified dr5 Followup: dr5 - With: Emergency Department - When: As needed - Reason: Worsening of condition Followup: dr5 - With: Private Physician - When: 1 - 2 days - Reason: Recheck today's complaints, Continuance of care, Re-evaluation by your physician Discharge Instructions: - Discharge Summary Sheet dr5 - Cough, Adult dr5 Forms: - Medication Reconciliation Form dr5 - Patient Portal Instructions dr5 - Leadership Thank You Letter dr5 Signatures: Dispatcher [employer] Zoie Allen RN RN aa5 Zenaida Duran RN RN al5 Markus Mendez FNP-C SEROLOGIST-Cdr5 Leola Jacques cp4 Corrections: (The following items were deleted from the chart) 16:37 16:36 CBC+H.LAB.BRZ ordered. EDMS EDMS 16:37 16:36 COMPREHENSIVE METABOLIC PANEL+C.LAB.BRZ ordered. EDMS EDMS 16:37 16:36 Troponin High Sensitivity+C.LAB.BRZ ordered. EDMS EDMS 16:37 16:37 BASIC METABOLIC PANEL+C.LAB.BRZ ordered. EDMS EDMS 16:37 16:37 PROTIME (+INR)+COAG.LAB.BRZ ordered. EDMS EDMS 16:37 16:37 Urinalysis+U.LAB.BRZ ordered. EDMS EDMS
--- NOTE | 2024-08-18 19:27 | ER ---
Nurse's Notes [facility] Name: Kathi Rodríguez Age: 78 yrs Sex: Female : 1945 Arrival Date: 08/18/2024 Time: 16:15 Bed 5 Private MD: Diagnosis: Nasal congestion;Acute upper respiratory infection, unspecified Presentation: 08/18 16:34 Ebola Screen: Patient denies travel to an Ebola-affected area in the 21 days before aa5 illness onset. Initial Sepsis Screen: Does the patient meet any 2 criteria? No. Patient's initial sepsis screen is negative. Does the patient have a suspected source of infection? No. Patient's initial sepsis screen is negative. Risk Assessment: Do you want to hurt yourself or someone else? Patient reports no desire to harm self or others. Onset of symptoms was August 2024. 16:34 Acuity: ROSHAN 3 aa5 16:34 Method Of Arrival: Wheelchair aa5 16:34 Chief complaint: Pt's daughter reports cough and congestion x 3-4 days ago. aa5 16:34 Coronavirus screen: congestion, cough unrelated to allergies. aa5 Historical: - Allergies: 16:33 Levaquin; aa5 16:33 Iodine; aa5 - PMHx: 16:33 diabetes mellitus; Hypercholesterolemia; Hypertensive disorder; Right sided weakness aa5 from previous CVA (Unknown); stroke (July 2023); thyroid disease; - Immunization history:: Adult Immunizations unknown. - Infectious Disease History:: Denies. - Social history:: Smoking status: Patient denies any tobacco usage or history of. Screenin:[facility] ED Fall Risk Assessment (Adult) History of falling in the last 3 months, ph including since admission No falls in past 3 months (0 pts) Confusion or Disorientation No (0 pts) Intoxicated or Sedated No (0 pts) Impaired Gait Yes (1 pt) Mobility Assist Device Used Yes (1 pt) Altered Elimination Yes (1 pt) Score/Fall Risk Level 3 or more points = High Risk Oriented to surroundings, Maintained a safe environment, Hourly rounding (assess needs \T\ fall precautionary measures) done, Used ambulatory aids as needed (educated on \T\ assisted with). Abuse screen: Denies threats or abuse. Denies injuries from another. Nutritional screening: No deficits noted. Tuberculosis screening: No symptoms or risk factors identified. Assessment: 17:51 General: Appears in no apparent distress. comfortable, Behavior is calm, cooperative, ph appropriate for age. Pain: Denies pain. Neuro: Level of Consciousness is awake, alert, obeys commands, Oriented to person, place, time, situation. Cardiovascular: Capillary refill < 3 seconds in bilateral fingers Patient's skin is warm and dry. Respiratory: Reports cough that is non-productive, Airway is patent Respiratory effort is even, unlabored, Respiratory pattern is regular, symmetrical. GI: No signs and/or symptoms were reported involving the gastrointestinal system. Derm: Skin is pink, warm \T\ dry. Musculoskeletal: Range of motion: limited in R side of body, hx of CVA. Vital Signs: 16:34 BP 140 / 75; Pulse 71; Resp 18 S; Temp 98.5(O); Pulse Ox 96% on R/A; Weight 88.45 kg aa5 (R); Height 5 ft. 0 in. (R); 17:53 BP 124 / 59; Pulse 70; Resp 18; Pulse Ox 96% on R/A; ph 18:57 BP 127 / 61; Pulse 65; Resp 18; Pulse Ox 97% on R/A; ph 19:47 BP 134 / 60; Pulse 61; Resp 18; Pulse Ox 97% ; cp4 16:34 Body Mass Index 38.08 (88.45 kg, 152.4 cm) aa5 Vitals: 18:57 Cardiac Rhythm Assessment Sinus rhythm. ED Course: 16:17 Patient arrived in ED. ra3 16:33 Arm band placed on. aa5 16:34 [facility] dr5 16:34 Lucila Stinson MD is Attending Physician. dr5 16:34 Triage completed. aa5 17:17 Dori Huntley, RN is Primary Nurse. ph 17:40 Chest Single View XRAY In Process Unspecified. EDMS 17:50 Initial lab(s) drawn, by ED staff, sent to lab. EKG done, by ED staff, reviewed by laila ENCARNACION. Inserted saline lock: 20 gauge in right hand, using aseptic technique. Blood collected. Flushed with 10 mL NS. 17:53 Patient has correct armband on for positive identification. Bed in low position. Call ph light in reach. Side rails up X2. Client placed on continuous cardiac and pulse oximetry monitoring. NIBP monitoring applied. patient monitor on. Door closed. Noise minimized. Warm blanket given. Pillow given. 18:57 Straight cath inserted, using sterile technique, 14 Fr. Specimen obtained. Returned ph clear yellow urine. Patient tolerated well. 18:58 No provider procedures requiring assistance completed. ph 19:48 Provided Education on: cough. cp4 19:48 intact, bleeding controlled, No redness/swelling at site. Pressure dressing applied. cp4 Administered Medications: 19:24 Drug: NS 0.9% IV 500 ml IV at bolus once; to be given as a bolus over 30 minutes Route: al5 IV; Rate: bolus; Site: right wrist; 19:49 Follow up: IV Status: Completed infusion cp4 Medication: 17:53 VIS not applicable for this client. ph Outcome: 19:27 Discharge ordered by MD. dr5 19:48 Discharged to home via wheelchair, cp4 19:48 Condition: stable 19:48 Discharge instructions given to patient, family, Instructed on discharge instructions, follow up and referral plans. Demonstrated understanding of instructions, follow-up care, 19:49 Patient left the ED. cp4 Signatures: Dispatcher [employer] EDMS Zoie Tucker RN RN aa5 Dori Huntley RN RN Leola Parker cp4 Beth Kitchen ra3 Zenaida Duran RN RN al5 Markus Mendez, QC TECH-C QC TECH-Cdr5
[2024-08-18 23:26] VITALS: TEMP 98.5
[2024-08-18 23:37] VITALS: O2SAT 97
[2024-08-18 23:39] VITALS: BP 134/60
== END 2024-08-18 19:49 | disposition home or self-care (01) ==
LOC: ER 16:15
DX: J06.9 Acute upper respiratory infection, unspecified (principal); R05.9 Cough, unspecified
CPT/HCPCS: 85025; 36415; 85610; 81003; 84484; 80053; 71045; 51702; 99285; J7040

== ENCOUNTER 2025-01-20 13:45 | Inpatient (IN) | payer OTHER ==
[2025-01-20] MEDS ORDERED: METHYLPREDNISOLONE 125 MG INJ ONE (14:01)
--- NOTE | 2025-01-20 14:01 | RAD REPORT ---
EXAM: CT brain without contrast HISTORY: Right-sided weakness. COMPARISON: 2023 TECHNIQUE: Multiple contiguous axial images were obtained and a CT of the brain without contrast. Sagittal and coronal reformats were performed. Automated exposure control, adjustment of the mA and/or kV according to patient size, and/or itera tive reconstruction. Unless otherwise specified, incidental findings do not require dedicated imaging follow-u FINDINGS: An intracranial bleed is not seen Ventricles are normal caliber No extra-axial fluid collection noted Moderate low-density paraventricular, deep and subcortical white matter likely ischemic changes secon goldy to small vessel disease. No fluid within the visualized sinuses or mastoids noted. IMPRESSION: No acute intracranial abnormality noted. If the patient's symptoms persist MRI of the brain would be recommended. from the emergency room was notified at 1:58 PM January 20, 2025
[2025-01-20] MEDS ORDERED: DIPHENHYDRAMINE 50 MG/ML VIAL ONE (14:02)
[2025-01-20 14:24] LABS: PT Prothrombin Time 13.4 SECONDS (10-13.0); PTT, Activated Partial Thromb 38.4 SECONDS (27.2-37.4); Protime INR 1.18; Troponin High Sensitivity 4.1 pg/mL (<58.9)
--- NOTE | 2025-01-20 14:30 | RAD REPORT ---
EXAMINATION: CTA HEAD CLINICAL INDICATION: Left-sided weakness TECHNIQUE: Axial CT images were obtained through the head after 100 cc Isovue-370 intravenous contras t utilizing angiographic protocol with 3D post-processing (maximum intensity projection images, volume rendered images and/or shaded surface rendered images). One or more of the following dose red uction techniques were used: Automated exposure control, adjustment of the mA and/or kV according to patient size, and/or iterative reconstruction. Unless otherwise specified, incidental findings do not require dedicated imaging follow-up. COMPARISON: None FINDINGS: Distal internal carotid, basilar, anterior cerebral, middle cerebral and posterior cerebral arteries do not demonstrate a significant stenosis An aneurysm not noted. No large vessel occlusion IMPRESSION: No acute vascular abnormality displayed
--- NOTE | 2025-01-20 14:30 | RAD REPORT ---
EXAMINATION: Neck Angio CLINICAL INDICATION: Left sided weakness TECHNIQUE: Axial CT images were obtained from the aortic arch to the skull base after intravenous adm inistration of 100 cc Isovue-370 utilizing angiographic protocol. Multiplanar reformats, as well as 3D post-processing (maximum intensity projection images, volume rendered images and/or shaded surface rendered images) were generated and reviewed. One or more of the following dose reduction techniques were used: Automated exposure control, adjustment of the mA and/or kV according to patient size, and/or iterative reconstruction. Unless otherwise specified, incidental findings do not require dedicated imaging follow-up. COMPARISON: No prior exam. FINDINGS: The visualized aortic arch and great vessels do not demonstrate a significant abnormality Mild plaque within the common carotid, internal carotid and external carotid arteries bilaterally Vertebral arteries unremarkable. No significant stenosis noted. A dissection is not seen. Methods for NASCET criteria: Mild stenosis, 0% to 49%; Moderate stenosis 50% to 69%; Severe stenosis, 70% to 99% IMPRESSION: No acute vascular abnormality displayed
[2025-01-20 14:34] LABS: Absolute Basophils 0.1 K/uL (0-0.5); Absolute Eosinophils 0.1 K/uL (0-0.5); Absolute Lymphocytes (CBC) 4.2 K/uL (0.7-4.9); Absolute Monocytes 0.9 K/uL (0.1-1.3); Absolute Neutrophil 8.7 K/uL (1.8-8.0); Basophils % 0.5 % (0-1.3); Eosinophils % 0.6 % (0-4.4); Hematocrit 41.4 % (36.0-45.0); Hemoglobin 14.2 g/dL (12.0-15.0); MCH 32.3 pg (27.0-35.0); MCHC 34.2 g/dL (32.0-36.0); MCV 94.4 fL (80-100); MPV 7.4 fL (7.6-11.3); Monocytes % 6.6 % (3.3-12.3); Neutrophils % 62.3 % (41.7-73.7); Nucleated Red Blood Cells % 0.1 % (0-0); Platelets 410 thou/uL (152-406); RBC Red Blood Cell Count 4.39 M/uL (3.86-4.86); Red Cell Distribution Width 13.8 % (12.1-15.2)
--- NOTE | 2025-01-20 14:58 | RAD REPORT ---
Procedure: Chest Single View HISTORY: CVA COMPARISON: 2023 FINDINGS: The lungs appear clear of acute infiltrate. No significant pleural effusion noted. The heart is normal size. IMPRESSION: No acute abnormality is displayed.
--- NOTE | 2025-01-20 15:19 | ER ---
Nurse's Notes [facility] Name: Kathi Rodríguez Age: 79 yrs Sex: Female : 1945 Arrival Date: 01/20/2025 Time: 13:45 Bed 5 Private MD: Diagnosis: Slurred speech;Dysphagia, unspecified Presentation: 01/20 14:44 Acuity: ROSHAN 2 iw 14:45 Chief complaint: Patient's son or daughter states: pt reported feeling like the right iw side of her mouth feels heavy and is having difficulty swallowing. Coronavirus screen: At this time, the client does not indicate any symptoms associated with coronavirus-19. Ebola Screen: No symptoms or risks identified at this time. Pre-hospital glucose is not applicable to this patient. Initial Sepsis Screen: Does the patient meet any 2 criteria? No. Patient's initial sepsis screen is negative. Does the patient have a suspected source of infection? No. Patient's initial sepsis screen is negative. Risk Assessment: Do you want to hurt yourself or someone else? Patient reports no desire to harm self or others. 14:45 Method Of Arrival: Wheelchair iw 14:45 Onset of symptoms was January 20, 2025 at 09:30. iw Triage Assessment: 14:45 The onset of the patients symptoms was January 20, 2025 at 09:30. General: Appears in no iw apparent distress. Behavior is calm, cooperative, appropriate for age. 19:37 The onset of the patients symptoms was. iw Stroke Activation: Symtpom onset >3 hours and < 6 hours Physician: ED Attending; Name: Dr. Devlin; Notified At: 13:44; Arrived At: 13:44 Physician: Mid-Level Provider; Name: ; Notified At: 13:44; Arrived At: Physician: [not used]; Name: ; Notified At: ; Arrived At: Physician: [not used]; Name: ; Notified At: ; Arrived At: Physician: [not used]; Name: ; Notified At: ; Arrived At: Historical: - Allergies: 14:45 Iodine; iw 14:45 Levaquin; iw - PMHx: 14:45 Hypercholesterolemia; diabetes mellitus; Hypertensive disorder; Right sided weakness iw from previous CVA (Unknown); stroke (July 2023); thyroid disease; - Immunization history:: Adult Immunizations unknown. - Infectious Disease History:: Denies. - Social history:: Smoking status: Patient denies any tobacco usage or history of. Screenin:25 VAN Screening: Arm Drift: Severe drift. Visual Disturbance: No visual disturbance es3 noted. Aphasia: No aphasia noted. Neglect: No neglect noted. 14:30 [place] Swallow Protocol Brief Cognitive Screen What is your name? Normal, Where are you es3 right now? Normal, What year is it? Normal. Oral Mechanism Examination Facial Symmetry: Abnormal Motion: Normal, Lip Closure: Abnormal Oral Mechanism Result: Abnormal: patient unable to keep lips closed completely when puffing cheeks out; when smiling, facial asymmetry noted . 3 oz Water Swallow Challenge: Pt able to drink all water without stopping, coughing, choking or throat clearing: Yes Result: PASS Notified: Papa Devlin DO. 14:45 [facility] ED Fall Risk Assessment (Adult) History of falling in the last 3 months, iw including since admission No falls in past 3 months (0 pts) Confusion or Disorientation No (0 pts) Intoxicated or Sedated No (0 pts) Impaired Gait No (0 pts) Mobility Assist Device Used No (0 pt) Altered Elimination No (0 pt) Score/Fall Risk Level 0 - 2 = Low Risk Oriented to surroundings, Maintained a safe environment. Abuse screen: Denies threats or abuse. Nutritional screening: No deficits noted. Tuberculosis screening: No symptoms or risk factors identified. Assessment: 13:44 Reassessment: CODE STROKE CALLED, PT TO CT WITH ELISA LARSON. 14:45 VAN Scoring: Arm Drift: Patients demonstrates NO arm weakness. Patient is VAN Negative. iw [place] Swallow Protocol Exclusion Criteria:. [place] Swallow Protocol Exclusion Criteria: Unable to remain alert for testing: No NPO for medical/surgical reason by provider order No Head-of-bed restricted <30 degrees Tracheostomy tube present No No thin liquids due to preexisting dysphagia/baseline modified diet thickened liquids No Exclusion Criteria Result: Proceed Brief Cognitive Screen What is your name? Normal, Where are you right now? Normal, What year is it? Normal. Oral Mechanism Examination Facial Symmetry: Normal, Motion: Normal, Lip Closure: Normal, Oral Mechanism Result: Normal. 3 oz Water Swallow Challenge: Pt able to drink all water without stopping, coughing, choking or throat clearing: Yes Result: PASS MD Notified: Papa Devlin DO. TNKase (Tenecteplase) Screening: Indications: Definite evidence of stroke, ischemic, embolic, or hypertensive: Yes. Treatment will start within 4.5 hours onset of symptoms: No. No evidence of intracranial hemorrhage or CT of head and no evidence of peripheral hemorrhage or recent CVA: Yes. Contraindications: Patient reports onset of signs and symptoms of stroke greater than 6 hours ago: Yes. 14:45 General: Appears in no apparent distress. Behavior is calm, cooperative. Pain: iw Complains of pain in head. Neuro: Level of Consciousness is awake, alert, obeys commands, Oriented to person, place, time, situation, Garment Sewer Hand are weak on right Paralysis in right arm(s) leg(s) Speech is slurred, Facial symmetry appears normal, Numbness in right cheek and right jaw. Cardiovascular: Patient's skin is warm and dry. Respiratory: Respiratory effort is even, unlabored, Respiratory pattern is regular, symmetrical. Derm: Skin is intact, is thin, Skin is dry, Skin is pink, warm \T\ dry. Musculoskeletal: Range of motion: limited in right shoulder, right elbow, right wrist, right hip, right knee and right ankle. Vital Signs: 14:30 BP 141 / 70; Pulse 74; Resp 16; Pulse Ox 100% on R/A; iw 15:00 BP 133 / 52; Pulse 73; Resp 16; Temp 98; Pulse Ox 97% on R/A; Pain 0/10; iw 15:00 Pain Scale: Adult iw NIH Stroke Scale Scores: 14:25 NIHSS Score: 10 es3 14:28 NIHSS Score: 10 ms3 14:45 NIHSS Score: 8 ED Course: 13:45 Arm band placed on. iw 13:46 Patient arrived in ED. zm 13:48 Papa Devlin DO is Attending Physician. ms3 13:55 CT Stroke Brain w/o Contrast In Process Unspecified. EDMS 13:55 Inserted saline lock: 20 gauge in left wrist, using aseptic technique. Blood collected. zm Flushed with 10 mL NS. 14:01 Initial lab(s) drawn, by ED staff, sent to lab. zm 14:13 CT Head Angio In Process Unspecified. EDMS 14:14 CT Neck Angio In Process Unspecified. EDMS 14:25 Carrie Cruz, RN is Primary Nurse. iw 14:41 Stroke CXR 1 View In Process Unspecified. EDMS 14:44 Triage completed. iw 14:45 Patient has correct armband on for positive identification. Client placed on continuous iw cardiac and pulse oximetry monitoring. NIBP monitoring applied. media monitor on. 15:18 Elli Harvey MD is Hospitalizing Provider. ms3 15:55 Brain Wo Cont In Process Unspecified. EDMS 19:36 No provider procedures requiring assistance completed. Patient admitted, IV remains in iw place. Administered Medications: 14:24 Drug: diphenhydrAMINE IVP 25 mg IVP once Route: IVP; Site: left antecubital; iw 14:25 Drug: MethylPrednisoLONE IVP 125 mg IVP once Route: IVP; Site: left antecubital; iw Medication: 14:45 VIS not applicable for this client. iw Outcome: 15:19 Decision to Hospitalize by Provider. ms3 19:00 Admitted to ER Hold. [facility]. iw 19:00 Condition: good 19:00 Discharge instructions given to patient, family, Instructed on the need for admit, Demonstrated understanding of instructions, 20:51 Patient left the ED. vc1 NIH Stroke Scale - NIH Stroke Score Date: 01/20/2025 Time: 14:25 Total Score = 10 10. Dysarthria (speech clarity - read or repeat words) - 1(Mild to Moderate) 11. Extinction and Inattention (visual/tactile/auditory/spatial/personal) - 0(No abnormality) 1a. Level of Consciousness (LOC) - 0(Alert) 1b. Level of Consciousness (LOC) (Month \T\ Age) - 0(Both) 1c. LOC Commands (Open \T\ Closes Eyes/Pointer Machine Operator) - 0(Both) 2. Best Gaze (Lateral Gaze Paresis) - 0(Normal) 3. Visual Field Loss - 0(No visual loss) 4. Facial Palsy - 0(Normal) 5a. Left Arm: Motor (10-second hold) - 0(No drift) 5b. Right Arm: Motor (10-second hold) - 3(No effort against gravity) 6a. Left Leg: Motor (5-second hold - always test supine) - 0(No drift) 6b. Right Leg: Motor (5-second hold - always test supine) - 3(No effort against gravity) 7. Limb Ataxia (finger/nose \T\ heel/yee - test with eyes open) - 2(Present in two limbs) 8. Sensory Loss (pinprick arms/legs/face) - 1(Mild to moderate loss) 9. Best Language: Aphasia (description/naming/reading) - 0(No aphasia) Initials: es3 NIH Stroke Scale - NIH Stroke Score Date: 01/20/2025 Time: 14:28 Total Score = 10 10. Dysarthria (speech clarity - read or repeat words) - 1(Mild to Moderate) 11. Extinction and Inattention (visual/tactile/auditory/spatial/personal) - 0(No abnormality) 1a. Level of Consciousness (LOC) - 0(Alert) 1b. Level of Consciousness (LOC) (Month \T\ Age) - 0(Both) 1c. LOC Commands (Open \T\ Closes Eyes/Pointer Machine Operator) - 0(Both) 2. Best Gaze (Lateral Gaze Paresis) - 0(Normal) 3. Visual Field Loss - 0(No visual loss) 4. Facial Palsy - 0(Normal) 5a. Left Arm: Motor (10-second hold) - 0(No drift) 5b. Right Arm: Motor (10-second hold) - 3(No effort against gravity) 6a. Left Leg: Motor (5-second hold - always test supine) - 0(No drift) 6b. Right Leg: Motor (5-second hold - always test supine) - 3(No effort against gravity) 7. Limb Ataxia (finger/nose \T\ heel/yee - test with eyes open) - 2(Present in two limbs) 8. Sensory Loss (pinprick arms/legs/face) - 1(Mild to moderate loss) 9. Best Language: Aphasia (description/naming/reading) - 0(No aphasia) Initials: ms3 NIH Stroke Scale - NIH Stroke Score Date: 01/20/2025 Time: 14:45 Total Score = 8 10. Dysarthria (speech clarity - read or repeat words) - 1(Mild to Moderate) 11. Extinction and Inattention (visual/tactile/auditory/spatial/personal) - 0(No abnormality) 1a. Level of Consciousness (LOC) - 0(Alert) 1b. Level of Consciousness (LOC) (Month \T\ Age) - 0(Both) 1c. LOC Commands (Open \T\ Closes Eyes/Pointer Machine Operator) - 0(Both) 2. Best Gaze (Lateral Gaze Paresis) - 0(Normal) 3. Visual Field Loss - 0(No visual loss) 4. Facial Palsy - 0(Normal) 5a. Left Arm: Motor (10-second hold) - 0(No drift) 5b. Right Arm: Motor (10-second hold) - 3(No effort against gravity) 6a. Left Leg: Motor (5-second hold - always test supine) - 0(No drift) 6b. Right Leg: Motor (5-second hold - always test supine) - 3(No effort against gravity) 7. Limb Ataxia (finger/nose \T\ heel/yee - test with eyes open) - 0(Absent) 8. Sensory Loss (pinprick arms/legs/face) - 1(Mild to moderate loss) 9. Best Language: Aphasia (description/naming/reading) - 0(No aphasia) Initials: iw Signatures: Dispatcher [employer] EDMS Carrie Cruz RN RN iw Radha Maloney RN RN hb Papa Devlin, DO DO ms3 Brandy Bach RN RN vc1 Sumaya Henley Emily, RN RN es3 Corrections: (The following items were deleted from the chart) 13:47 13:43 Reassessment: CODE STROKE CALLED, PT TO CT WITH ELISA LARSON hb hb 15:08 15:07 BP 133 / 52; Pulse 73bpm; Resp 16bpm; Pulse Ox 97% RA; Temp 98F; Pain iw 0, Adult; iw
--- NOTE | 2025-01-20 15:19 | EDPHYS ---
Physician Documentation [facility] Name: Kathi Rodríguez Age: 79 yrs Sex: Female : 1945 Arrival Date: 01/20/2025 Time: 13:45 Bed 5 Private MD: ED Physician Papa Devlin HPI: 01/20 15:55 This 79 yrs old Female presents to ER via Unassigned with complaints of S/S of Possible ms3 Stroke. 15:55 79-year-old female with past medical history of hypercholesterolemia, diabetes, ms3 hypertension, right-sided weakness from previous CVA presents to the emergency department for difficulty swallowing and slurred speech that began at approximately 930 this morning.. Historical: - Allergies: 14:45 Iodine; iw 14:45 Levaquin; iw - PMHx: 14:45 Hypercholesterolemia; diabetes mellitus; Hypertensive disorder; Right sided weakness iw from previous CVA (Unknown); stroke (July 2023); thyroid disease; - Immunization history:: Adult Immunizations unknown. - Infectious Disease History:: Denies. - Social history:: Smoking status: Patient denies any tobacco usage or history of. ROS: 15:55 Constitutional: Negative for fever, and chills. Cardiovascular: Negative for chest ms3 pain, and palpitations. Respiratory: Negative for shortness of breath, cough, wheezing, and pleuritic chest pain, Abdomen/GI: Negative for abdominal pain, nausea, vomiting, diarrhea, and constipation, MS/Extremity: Negative for injury and deformity, 15:55 Neuro: Positive for slurred speech, dysphagia, Exam: 15:55 Radiologist reports: Negative ms3 15:55 Constitutional: This is a well developed, well nourished patient who is awake, alert, and in no acute distress. Cardiovascular: Regular rate and rhythm with a normal S1 and S2. No gallops, murmurs, or rubs. Normal PMI, no JVD. No pulse deficits. Respiratory: Lungs have equal breath sounds bilaterally, clear to auscultation and percussion. No rales, rhonchi or wheezes noted. No increased work of breathing, no retractions or nasal flaring. Abdomen/GI: Soft, non-tender, with normal bowel sounds. No distension or tympany. No guarding or rebound. No evidence of tenderness throughout. Skin: Warm, dry with normal turgor. Normal color with no rashes, no lesions, and no evidence of cellulitis. 15:55 Musculoskeletal/extremity: right sided deficits from previous CVA. 16:01 ECG was reviewed by the Attending Physician. ms3 Vital Signs: 14:30 BP 141 / 70; Pulse 74; Resp 16; Pulse Ox 100% on R/A; iw 15:00 BP 133 / 52; Pulse 73; Resp 16; Temp 98; Pulse Ox 97% on R/A; Pain 0/10; iw 15:00 Pain Scale: Adult iw NIH Stroke Scale Scores: 14:25 NIHSS Score: 10 es3 14:28 NIHSS Score: 10 ms3 14:45 NIHSS Score: 8 iw MDM: 13:47 Medical Screening Exam initiated sp3 15:57 Differential diagnosis: CVA, TIA, metabolic disorder. TNKase (Tenecteplase) Screening: ms3 Contraindications: Is the patient on Aspirin, Heparin, or Warfarin: Yes. Data reviewed: vital signs, nurses notes, lab test result(s), EKG, radiologic studies, and as a result, I will admit patient. Consideration of Admission/Observation Patient was admitted/placed on observation. Management of patient was discussed with the following: Hospitalist: Dr Harvey. Residential Sales: Dr Almeida. 01/20 13:49 Order name: Basic Metabolic Panel; Complete Time: 14:47 ms3 01/20 13:49 Order name: CBC with Diff; Complete Time: 14:47 ms3 01/20 13:49 Order name: High Sensitivity Troponin; Complete Time: 14:47 ms3 01/20 13:49 Order name: Magnesium; Complete Time: 14:47 ms3 01/20 13:49 Order name: Protime (+inr); Complete Time: 14:47 ms3 01/20 13:49 Order name: Ptt, Activated; Complete Time: 14:47 ms3 01/20 14:08 Order name: Glucose, Ancillary Testing; Complete Time: 14:12 EDMS 01/20 16:15 Order name: UA Rfx Jonatan Cult if indicated ms3 01/20 17:10 Order name: C-Reactive Protein EDMS 01/20 17:10 Order name: C-Reactive Protein EDMS 01/20 17:10 Order name: CBC with Automated Diff EDMS 01/20 17:10 Order name: CBC with Automated Diff EDMS 01/20 17:10 Order name: Comprehensive Metabolic Panel EDMS 01/20 17:10 Order name: Comprehensive Metabolic Panel EDMS 01/20 17:10 Order name: Lipid Profile EDMS 01/20 17:10 Order name: Lipid Profile EDMS 01/20 17:10 Order name: Magnesium EDMS 01/20 17:10 Order name: Magnesium EDMS 01/20 17:10 Order name: Phosphorus EDMS 01/20 17:10 Order name: Phosphorus EDMS 01/20 17:10 Order name: Troponin High Sensitivity EDMS 01/20 17:10 Order name: Troponin High Sensitivity EDMS 01/20 17:10 Order name: Troponin High Sensitivity EDMS 01/20 17:10 Order name: Troponin High Sensitivity EDMS 01/20 13:49 Order name: CT Head Angio; Complete Time: 14:47 ms3 01/20 13:49 Order name: CT Neck Angio; Complete Time: 14:47 ms3 01/20 13:49 Order name: CT Stroke Brain w/o Contrast; Complete Time: 14:12 ms3 01/20 13:49 Order name: Stroke CXR 1 View; Complete Time: 15:10 ms3 01/20 15:55 Order name: Brain Wo Cont; Complete Time: 16:09 EDMS 01/20 17:10 Order name: Echo with Doppler EDMS 01/20 17:10 Order name: Physical Therapy Consult EDMS 01/20 17:10 Order name: Speech Therapy Consult EDMS 01/20 13:49 Order name: Accucheck; Complete Time: 14:01 ms3 01/20 13:49 Order name: Cardiac monitoring; Complete Time: 14:49 ms3 01/20 13:49 Order name: EKG - Nurse/Tech; Complete Time: 14:49 ms3 01/20 13:49 Order name: IV Saline Lock; Complete Time: 14:01 ms3 01/20 13:49 Order name: Labs collected and sent; Complete Time: 14:01 ms3 01/20 13:49 Order name: NPO; Complete Time: 14:01 ms3 01/20 13:49 Order name: O2 Per Protocol; Complete Time: 14:49 ms3 01/20 13:49 Order name: O2 Sat Monitoring; Complete Time: 14:49 ms3 01/20 13:49 Order name: Stroke Swallow Screen; Complete Time: 14:49 ms3 EC:01 Rate is 81 beats/min. Rhythm is regular. Left axis deviation noted. OK interval is ms3 normal. QRS interval is normal. Clinical impression: NSR w/ Non-specific ST/T Changes. Interpreted by me. Reviewed by me. Administered Medications: 14:24 Drug: diphenhydrAMINE IVP 25 mg IVP once Route: IVP; Site: left antecubital; iw 14:25 Drug: MethylPrednisoLONE IVP 125 mg IVP once Route: IVP; Site: left antecubital; iw Disposition Summary: 01/20/25 15:19 Hospitalization Ordered Notes: Hospitalization Status: Observation ms3 Provider: Elli Harvey ms3 Condition: Stable ms3 Problem: new ms3 Symptoms: are unchanged ms3 Bed/Room Type: Standard ms3 Location: Telemetry/MedSurg (Inpatient)(01/20/25 19:39) vk Room Assignment: [facility](01/20/25 19:39) vk Diagnosis - Slurred speech ms3 - Dysphagia, unspecified ms3 Forms: - Medication Reconciliation Form ms3 - SBAR form ms3 - Leadership Thank You Letter ms3 NIH Stroke Scale - NIH Stroke Score Date: 01/20/2025 Time: 14:25 Total Score = 10 10. Dysarthria (speech clarity - read or repeat words) - 1(Mild to Moderate) 11. Extinction and Inattention (visual/tactile/auditory/spatial/personal) - 0(No abnormality) 1a. Level of Consciousness (LOC) - 0(Alert) 1b. Level of Consciousness (LOC) (Month \T\ Age) - 0(Both) 1c. LOC Commands (Open \T\ Closes Eyes/Sales Assistant) - 0(Both) 2. Best Gaze (Lateral Gaze Paresis) - 0(Normal) 3. Visual Field Loss - 0(No visual loss) 4. Facial Palsy - 0(Normal) 5a. Left Arm: Motor (10-second hold) - 0(No drift) 5b. Right Arm: Motor (10-second hold) - 3(No effort against gravity) 6a. Left Leg: Motor (5-second hold - always test supine) - 0(No drift) 6b. Right Leg: Motor (5-second hold - always test supine) - 3(No effort against gravity) 7. Limb Ataxia (finger/nose \T\ heel/yee - test with eyes open) - 2(Present in two limbs) 8. Sensory Loss (pinprick arms/legs/face) - 1(Mild to moderate loss) 9. Best Language: Aphasia (description/naming/reading) - 0(No aphasia) Initials: es3 NIH Stroke Scale - NIH Stroke Score Date: 01/20/2025 Time: 14:28 Total Score = 10 10. Dysarthria (speech clarity - read or repeat words) - 1(Mild to Moderate) 11. Extinction and Inattention (visual/tactile/auditory/spatial/personal) - 0(No abnormality) 1a. Level of Consciousness (LOC) - 0(Alert) 1b. Level of Consciousness (LOC) (Month \T\ Age) - 0(Both) 1c. LOC Commands (Open \T\ Closes Eyes/Sales Assistant) - 0(Both) 2. Best Gaze (Lateral Gaze Paresis) - 0(Normal) 3. Visual Field Loss - 0(No visual loss) 4. Facial Palsy - 0(Normal) 5a. Left Arm: Motor (10-second hold) - 0(No drift) 5b. Right Arm: Motor (10-second hold) - 3(No effort against gravity) 6a. Left Leg: Motor (5-second hold - always test supine) - 0(No drift) 6b. Right Leg: Motor (5-second hold - always test supine) - 3(No effort against gravity) 7. Limb Ataxia (finger/nose \T\ heel/yee - test with eyes open) - 2(Present in two limbs) 8. Sensory Loss (pinprick arms/legs/face) - 1(Mild to moderate loss) 9. Best Language: Aphasia (description/naming/reading) - 0(No aphasia) Initials: ms3 NIH Stroke Scale - NIH Stroke Score Date: 01/20/2025 Time: 14:45 Total Score = 8 10. Dysarthria (speech clarity - read or repeat words) - 1(Mild to Moderate) 11. Extinction and Inattention (visual/tactile/auditory/spatial/personal) - 0(No abnormality) 1a. Level of Consciousness (LOC) - 0(Alert) 1b. Level of Consciousness (LOC) (Month \T\ Age) - 0(Both) 1c. LOC Commands (Open \T\ Closes Eyes/Sales Assistant) - 0(Both) 2. Best Gaze (Lateral Gaze Paresis) - 0(Normal) 3. Visual Field Loss - 0(No visual loss) 4. Facial Palsy - 0(Normal) 5a. Left Arm: Motor (10-second hold) - 0(No drift) 5b. Right Arm: Motor (10-second hold) - 3(No effort against gravity) 6a. Left Leg: Motor (5-second hold - always test supine) - 0(No drift) 6b. Right Leg: Motor (5-second hold - always test supine) - 3(No effort against gravity) 7. Limb Ataxia (finger/nose \T\ heel/yee - test with eyes open) - 0(Absent) 8. Sensory Loss (pinprick arms/legs/face) - 1(Mild to moderate loss) 9. Best Language: Aphasia (description/naming/reading) - 0(No aphasia) Initials: iw Signatures: Dispatcher [employer] EDMS Carrie Cruz RN RN iw Papa Devlin, DO ms3 Lucila Stinson MD MD sp3 Genie Delgado RN RN kb3 Laura Callejas Corrections: (The following items were deleted from the chart) 13:50 13:50 BASIC METABOLIC PANEL+C.LAB.BRZ ordered. EDMS EDMS 13:50 13:50 CBC+H.LAB.BRZ ordered. EDMS EDMS 13:50 13:50 Troponin High Sensitivity+C.LAB.BRZ ordered. EDMS EDMS 13:50 13:50 MAGNESIUM+C.LAB.BRZ ordered. EDMS EDMS 13:50 13:50 PROTIME (+INR)+COAG.LAB.BRZ ordered. EDMS EDMS 13:50 13:50 PTT, ACTIVATED+COAG.LAB.BRZ ordered. EDMS EDMS 13:50 13:50 Head Angio+CT.RAD.BRZ ordered. EDMS EDMS 13:50 13:50 Neck Angio+CT.RAD.BRZ ordered. EDMS EDMS 13:50 13:50 CT-STROKE BRAIN W/O CONTRAST+CT.RAD.BRZ ordered. EDMS EDMS 13:50 13:50 Chest Single View+RAD.RAD.BRZ ordered. EDMS EDMS 14:13 14:13 MR STROKE PROTOCOL+MRI.RAD.BRZ ordered. EDMS EDMS : 15:19 Telemetry/MedSurg (observation) ms3 kb3 17: 15:19 ms3 kb3 19:39 17:23 [facility] ER HOLD kb3 vk :39 17:23 ERHOLD- kb3 vk
--- NOTE | 2025-01-20 16:08 | RAD REPORT ---
EXAMINATION: MRI BRAIN WITHOUT CONTRAST CLINICAL INDICATION: Right-sided weakness TECHNIQUE: Multiplanar multisequence MR images of the brain were obtained without intravenous contras t. Unless otherwise specified, incidental findings do not require dedicated imaging follow-up. COMPARISON: Head CT January 20, 2025 FINDINGS: Moderate abnormal signal within periventricular, deep and subcortical white matter probably ischemic changes secondary to small vessel disease. Diffusion weighted/ADC mapping does not demonstrate evidence of an acute infarction. Ventricles are normal caliber. No extra-axial fluid collection. No fluid within the sinuses/mastoid seen IMPRESSION: No acute intracranial abnormalities displayed
[2025-01-20] MEDS ORDERED: ONDANSETRON 4 MG/2 ML VIAL IV PRN (17:06)
--- NOTE | 2025-01-20 17:11 | P.HP ---
Certification for Inpatient Patient admitted to: Inpatient With expected LOS: >2 Midnights Patient will require the following post-hospital care: None Practitioner: I am a practitioner with admitting privileges, knowledge of patient current condition, hospital course, and medical plan of care. Services: Services provided to patient in accordance with Admission requirements found in Title 42 Section 412.3 of the Code of Federal Regulations Patient History Date of Service: 01/20/25 Reason for admission: Aphasia with recurrence of strokelike symptoms History of Present Illness: Patient is a 79-year-old female with a prior history of a stroke that occurred couple years ago. 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 She continues to feel weak and lethargic. 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 Patient is able to occasionally transfer but about a month ago she states that she has not been really getting out of bed at all. Currently she started feeling more aphasic with numbness on the face and she felt like her symptoms when she had her prior stroke were returning. She came to the hospital for further evaluation. In the emergency room she had further imaging studies which did not reveal any acute infarct or acute bleed. At this time patient will be admitted to the hospital for TIA type symptoms. Neurology consultation pending. Allergies canagliflozin Allergy (Verified 03/31/24 01:17) Itching/Hives/Rash dulaglutide Allergy (Verified 03/31/24 01:17) Itching/Hives/Rash levofloxacin [From Levaquin] Allergy (Verified 03/31/24 01:17) Anaphylaxis iodine Adverse Reaction (Verified 03/31/24 01:17) Anaphylaxis iv dye Allergy (Uncoded 08/17/23 01:02) Shortness of breath Home Medications: Apixaban [Eliquis *] 2.5 mg PO BID 04/07/24 Atorvastatin Calcium [Lipitor] 80 mg PO BEDTIME 04/07/24 Folic Acid 1 mg PO DAILY 04/07/24 Hum Insulin NPH/Reg Insulin Hm [Humulin 70-30 Vial] 18 units SQ BID 04/07/24 Melatonin/Pyridoxine HCl (B6) [Melatonin Tr 10 mg Tablet] 10 mg PO BEDTIME 04/07/24 [place]-3/Dha/Epa/Fish Oil [Cvs Fish Oil 1,000 mg Softgel] 1 cap PO DAILY 04/07/24 Quercetin 500 mg PO DAILY 04/07/24 Thyroid,Pork [Insulation Blower Thyroid] 30 mg PO 0630 04/07/24 Turmeric Root Extract [Turmeric] 500 mg PO BEDTIME 04/07/24 Vit C/E/Zn/Coppr/Lutein/Zeaxan [Preservision Areds 2 Softgel] 1 tab PO BID 04/07/24 hydroCHLOROthiazide [Hydrochlorothiazide*] 1 tab PO DAILY 04/07/24 lisinopriL [Zestril] 20 mg PO DAILY 04/07/24 - Past Medical/Surgical History Diabetic: Yes -: CVA -: IDDM -: HTN -: OA -: hypothyroidsm -: depression -: anxiety -: pna -: insomnia -: sinusitis -: sciatica -: GERd -: hernia repair -: section -: Left shoulder surgery -: R breast lumpectomy -: hysterectomy -: kiko -: egd - Family History Father Medical History: Heart disease, Lung disease - Social History Smoking Status: Former smoker Alcohol use: No CD- Drugs: No Caffeine use: Yes Review of Systems 10-point ROS is otherwise unremarkable Physical Examination - Vital Signs Temperature: 98 F Blood Pressure: 140/80 Pulse: 90 Respirations: 18 Pulse Ox (%): 95 - Physical Exam General: Alert, In no apparent distress, Oriented x3 HEENT: Atraumatic, PERRLA, Mucous membr. moist/pink, EOMI, Sclerae nonicteric Neck: Supple, 2+ carotid pulse no bruit, No LAD, Without JVD or thyroid abnormality Respiratory: Clear to auscultation bilaterally, Normal air movement Cardiovascular: Regular rate/rhythm, Normal S1 S2, No murmurs Gastrointestinal: Normal bowel sounds, Soft and benign, Non-distended, No tenderness Musculoskeletal: No clubbing, No swelling, No tenderness Integumentary: No rashes Neurological: Normal speech, Sensation intact, Cranial nerves 3-12 intact, Abnormal gait, Abnormal strength Lymphatics: No axilla or inguinal lymphadenopathy - Studies Laboratory Data (last 24 hrs) 01/20/25 01/20/25 01/20/25 13:55 13:55 13:55 WBC 14.00 H Hgb 14.2 Hct 41.4 Plt Count 410 H PT 13.4 H INR 1.18 APTT 38.4 H Sodium 133 L Potassium 4.0 BUN 23 H Creatinine 0.73 Glucose 199 H Magnesium 2.0 Assessment & Plan - Problems (Diagnosis) (1) TIA (transient ischemic attack) Current Visit: Yes Status: Acute (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 TIA with generalized weakness; patient with imaging studies with MRI and CT scan with no acute infarct. Continue with antiplatelet therapy and statin therapy. Strict blood pressure control. Continue with physical therapy/Occupational Therapy/speech therapy. Plan to discharge over the next 48 hours as long as patient continues to improve. 2. Metabolic syndrome; strict blood pressure and blood sugar control. Continue monitoring hemodynamics closely. 3. Osteoarthritis; continue with pain medication 4. Discharge Plan: Home Plan to discharge in: Greater than 2 days - Advance Directives Does patient have a Living Will: No Does patient have a Durable POA for Healthcare: No - Code Status/Comfort Care Code Status Assessed: Yes Code Status: Full Code Critical Care: No Time Spent Managing PTS Care (In Minutes): 45
[2025-01-20] MEDS: NA CHLORIDE 0.9% 1,000 ML IV SCH (18:00)
[2025-01-20] MEDS ORDERED: NA CHLORIDE 0.9% 1,000 ML ONE (18:38)
[2025-01-20] MEDS ORDERED: ACETAMINOPHEN 500 MG TAB ONE (18:38)
[2025-01-20] MEDS: ACETAMINOPHEN 500 MG TAB PO PRN (18:41)
[2025-01-20 19:21] LABS: Specific Gravity > 1.030 (1.005-1.030); Urine Bilirubin NEGATIVE (Negative); Urine Blood Negative (Negative); Urine Clarity Clear (Clear); Urine Color Colorless (Yellow); Urine Glucose NEGATIVE (Negative); Urine Ketones NEGATIVE (Negative); Urine Microscopic Reflex YN NO UMIC; Urine Nitrite NEGATIVE (Negative); Urine Protein NEGATIVE (Negative); Urine Urobilinogen Normal (Normal); Urine pH 7.5 (5.0-7.0)
[2025-01-20] MEDS: ATORVASTATIN 40 MG TAB PO ONE (23:21)
[2025-01-21] MEDS: MELATONIN 5 MG TABLET PO SCH (01:38)
[2025-01-21] MEDS: ASPIRIN EC 81 MG TAB PO SCH (08:17)
[2025-01-21] MEDS: ENOXAPARIN 40 MG/0.4 ML SQ SCH (08:17)
[2025-01-21] MEDS: CLOPIDOGREL 75 MG TABLET PO SCH (08:17)
[2025-01-21 08:46] LABS: Absolute Basophils 0.1 K/uL (0-0.5); Absolute Lymphocytes (CBC) 2.5 K/uL (0.7-4.9); Absolute Monocytes 0.9 K/uL (0.1-1.3); Absolute Neutrophil 9.2 K/uL (1.8-8.0); Basophils % 0.5 % (0-1.3); Eosinophils % 0.1 % (0-4.4); Hematocrit 36.4 % (36.0-45.0); Hemoglobin 12.4 g/dL (12.0-15.0); MCH 32.1 pg (27.0-35.0); MCV 94.4 fL (80-100); MPV 7.3 fL (7.6-11.3); Monocytes % 6.8 % (3.3-12.3); Neutrophils % 72.6 % (41.7-73.7); Platelets 369 thou/uL (152-406); RBC Red Blood Cell Count 3.85 M/uL (3.86-4.86); Red Cell Distribution Width 13.7 % (12.1-15.2)
[2025-01-21 08:49] LABS: ALT/SGPT 17 U/L (13-56); Alkaline Phosphatase 43 U/L (45-117); Anion Gap 8.1 mEq/L (5.0-15.0); BUN Blood Urea Nitrogen 18 mg/dL (7-18); Bicarbonate 21 mEq/L (21-32); Bilirubin Total 0.2 mg/dL (0.2-1.0); Globulin 2.1 g/dL (2.3-3.5); Glomerular Filtration Rate 108 ml/min (=/>90); Glucose Level 134 mg/dL (74-106); HDL Cholesterol 35 mg/dL (40-60); LDL Cholesterol, Calculated 144 mg/dL (<130); LDL Cholesterol,Calc NonReport 144; Magnesium 1.3 mg/dL (1.6-2.4); Phosphorus 2.1 mg/dL (2.5-4.9); Potassium 3.1 mEq/L (3.5-5.1); Protein, Total 4.1 g/dL (6.4-8.2); Sodium Level 142 mEq/L (136-145); Troponin High Sensitivity 5.8 pg/mL (<58.9)
[2025-01-21 08:50] LABS: AST/SGOT < 10 U/L (15-37)
[2025-01-21 08:51] LABS: C-Reactive Protein < 2.90 mg/L (<3.00)
[2025-01-21 10:13] LABS: Anion Gap 8.9 mEq/L (5.0-15.0); Magnesium 1.9 mg/dL (1.6-2.4); Potassium 4.9 mEq/L (3.5-5.1)
[2025-01-21] MEDS: SODIUM PHOSPHATE 15 MM in NA CHLORIDE 0.9% 250 ML IV ONE (10:55)
--- NOTE | 2025-01-21 13:06 | ECHO ---
HEIGHT: 5 ft 0 in WEIGHT: 138 lb 12.8 oz DATE OF STUDY: 01/21/[address]: Elli Harvey MD 2-DIMENSIONAL: YES M.MODE: YES DOPPLER: YES COLOR FLOW: YES TDS: PORTABLE: YES DEFINITY: BUBBLE STUDY: DIAGNOSIS: STROKE CARDIAC HISTORY: CATHERIZATION: NO SURGERY: NO PROSTHETIC VALVE: NO PACEMAKER: NO MEASUREMENTS (cm) DIASTOLIC (NORMALS) SYSTOLIC (NORMALS) IVSd 1.0 (0.6-1.2) LA Diam 2.8 (1.9-4.0) LVEF 60-65% LVIDd 3.6 (3.5-5.7) LVIDs 2.5 (2.0-3.5) %FS 32% LVPWd 1.2 (0.6-1.2) Ao Diam 2.5 (2.0-3.7) 2 DIMENSIONAL ASSESSMENT: RIGHT ATRIUM: NORMAL LEFT ATRIUM: NORMAL RIGHT VENTRICLE: NORMAL LEFT VENTRICLE: NORMAL TRICUSPID VALVE: TRACE TRICUSPID REGURGITATION MITRAL VALVE: NORMAL PULMONIC VALVE: NORMAL AORTIC VALVE: NORMAL PERICARDIAL EFFUSION: NONE AORTIC ROOT: NORMAL LEFT VENTRICULAR WALL MOTION: NORMAL DOPPLER/COLOR FLOW: NORMAL COMMENTS: 1. NORMAL LEFT VENTRICULAR SYSTOLIC FUNCTION, EJECTION FRACTION 60-65%, NORMAL WALL MOTION 2. NORMAL DIASTOLIC FUNCTION TECHNOLOGIST: GAYLE LAO
[2025-01-21] MEDS: ATORVASTATIN 80 MG TAB PO SCH (21:14)
--- NOTE | 2025-01-22 00:32 | CON ---
Reason For Consultation: Consultation called because of possibility of a new stroke. It was more ri ght-sided weakness. History Of Present Illness: Ms. Armenta is a 79-year-old right-handed patient, who has significant left MCA stroke with dense paresis of the right upper extremity more than lower extremity and right facial weakness with dysarthria, dysphagia, and mild cognitive impairment. She did inpatient rehabil itation on multiple occasions and was discharged home, doing therapy by Home Health when she had over the weekend developed more difficulty with right upper and lower extremity and facial weakness. She came to emergency room and had difficulty swallowing, slurred speech, began around 9:30 in the [facility], and she came to the hospital around 1:45 p[address] She had a CT scan of the head, which showed no acu te ischemic or hemorrhagic changes. Brain MRI done subsequently identified moderate abnormal signal within the periventricular deep and subcortical white matter from ischemic changes secondary to small vessel ischemic disease. There is no evidence of acute ischemic or hemorrhagic stroke. The brain C T scan which was done on the also identified similar findings. Laboratory studies showed a slig htly elevated white blood cell count of 14.0 with normal hemoglobin and hematocrit, slightly elevated platelets. INR 1.18. Her comprehensive metabolic panel shows slightly low sodium of 133, normal po tassium, normal chloride, and her BUN slightly elevated with normal creatinine of 7.3. Calcium after hydration was low at 6.2. Her magnesium was low at 1.3 after hydration. Liver function studies oth erwise unremarkable. Cholesterol panel showed an LDL cholesterol of 144, HDL 35. Urinalysis showed pH 7.5, specific gravity greater than 1.03. She is rehydrated and is improving towards baseline. Daniel valencia is receiving Botox in the right upper extremity for contractures following her left brain stroke wi th right-sided weakness and difficulty moving at any voluntary degree the right upper extremity. She does wear a right shoulder brace to help reduce pain from the loss of tone in the right upper extrem ity from her stroke. She also does range of motion exercises using the left hand to the right side. Past Medical History: As noted above. Allergies: DULAGLUTIDE, LEVOFLOXACIN, IODINE, AND CANAGLIFLOZIN ALONG WITH IV DYE. Current Medications: Tylenol 500 mg every 4 hours as needed, aspirin 162 mg daily, Lipitor 80 mg at bedtime, Plavix 75 mg daily, Lovenox 40 mg subcutaneous daily, melatonin 10 mg at bedtime, Zofran 4 m g every 6 hours as needed, and she is receiving normal saline at 75 cc an hour. Review of Systems: Some mild dysarthria, difficulty with speech and swallowing, and some stiffness in the right upper ex tremity and difficulty moving arms and legs. She has mostly daughter says been nonambulatory over e last several weeks and requires assistance with transfers. She has had issues maintaining bowel an d bladder continence. Her daughter did mention that she had some difficulty with voluntary urination and when the Garcia catheter was inserted, about 900 cc of urine was obtained. She was subsequently able to while hospitalized void especially when upright. Physical Examination: Vital Signs: Blood pressure 112/56, pulse 69, respiratory rate of 14, temperature 97.8, oxygen satur ation 95%. Weight 138 pounds, height 5 feet, BMI 27.1. General: Ms. Kathi Rodríguez is resting comfortably in bed. She is in no acute distress. HEENT: She is normocephalic, atraumatic. Sclerae anicteric. Neuro: Right upper extremity shows increased tone. Lower extremity shows increased tone and weaknes s, but stronger than the right upper extremity. Left upper extremity, no significant weakness. She has decreased light touch in a stocking-glove fashion. Normal coordination on the left and unable to move the right lower extremity to assess any form of coordination testing. She at this point requir es max assist for transfers and mobilization. She was evaluated by Physical Therapy Service. She butcher s significant impairment in mobility and bed transfers, impaired ability to perform ADLs. It was rec ommended the patient continue with custodial for further improvement and she was evaluated by Sammy deluca and had a bedside swallow evaluation. Recommended mechanical soft diet with thin liquids, upri ght at 90 degrees, small bites, multiple sips, alternate liquids and solids, remain upright after eat ing. Assessment And Plan: Ms. Rodríguez is a 79-year-old patient in the rehabilitation unit with likely s equelae of stroke and no new or acute stroke. In addition, she appeared to have some urinary retenti on, which may be a contributing factor to the patient's worsening confusion, disorientation, and some more right-sided weakness. Again, no evidence of an acute stroke. She does have potential UTI with elevated white blood cell count, initially 14.0 and now 12.7. No significant evidence of dehydratio n. Liver function abnormalities. Again, mildly elevated cholesterol. In terms of her plan, continu e with gentle hydration. Continue with management of stroke risk factors including aspirin, Plavix, Lipitor. Address issues of hydration ss noted and she may be discharged to custodial to contin ue therapy. If able to, she may follow up in the clinic within the month of discharge. NINO/HODAN Voice ID: [id number] Report ID: [id number]
[2025-01-22 02:26] VITALS: BMI 27.9
--- NOTE | 2025-01-22 07:14 | P.PN ---
Date of Service: 01/21/25 Subjective Patient is doing better. Clinical symptoms are improved. Patient denies any new complaints. Clinical symptoms are much better. Physical Examination - Vital Signs reviewed - Physical Exam General: Alert, In no apparent distress, Oriented x3 Respiratory: Clear to auscultation bilaterally, Normal air movement Cardiovascular: Regular rate/rhythm, Normal S1 S2, No murmurs Gastrointestinal: Normal bowel sounds, Soft and benign, Non-distended, No tenderness Musculoskeletal: No clubbing, No swelling, No tenderness Integumentary: No rashes Neurological: No focal deficits; generalized weakness Assessment & Plan - Problems (Diagnosis) (1) TIA (transient ischemic attack) Current Visit: Yes Status: Acute (2) MCFP (current) use of anticoagulants Current Visit: No Status: Acute (3) Metabolic syndrome Current Visit: Yes Status: Acute (4) Osteoarthritis Current Visit: Yes Status: Acute - Plan Continue with current plan of care as mentioned below; 1. TIA with generalized weakness; patient with imaging studies with MRI and CT scan with no acute infarct. Continue with antiplatelet therapy and statin therapy. Strict blood pressure control. Continue with physical therapy/Occupational Therapy/speech therapy. Plan to discharge over the next 48 hours as long as patient continues to improve. 2. Metabolic syndrome; strict blood pressure and blood sugar control. Continue monitoring hemodynamics closely. 3. Osteoarthritis; continue with pain medication 4.GI/DVT prophylaxis Discharge Plan: Home Plan to discharge in: Greater than 2 days - Advance Directives Does patient have a Living Will: No Does patient have a Durable POA for Healthcare: No - Code Status/Comfort Care Code Status Assessed: Yes Code Status: Full Code Critical Care: No Time Spent Managing PTS Care (In Minutes): 45
[2025-01-22 07:25] LABS: Phosphorus 2.8 mg/dL (2.5-4.9); Potassium 3.8 mEq/L (3.5-5.1)
[2025-01-22 11:22] LABS: Absolute Basophils 0.1 K/uL (0-0.5); Absolute Eosinophils 0.1 K/uL (0-0.5); Absolute Lymphocytes (CBC) 3.6 K/uL (0.7-4.9); Absolute Monocytes 0.7 K/uL (0.1-1.3); Absolute Neutrophil 6.3 K/uL (1.8-8.0); Basophils % 0.6 % (0-1.3); Eosinophils % 0.5 % (0-4.4); Hematocrit 37.1 % (36.0-45.0); Hemoglobin 12.8 g/dL (12.0-15.0); Lymphocytes % 33.4 % (15.3-44.8); MCH 32.5 pg (27.0-35.0); MCHC 34.6 g/dL (32.0-36.0); MPV 7.1 fL (7.6-11.3); Monocytes % 6.7 % (3.3-12.3); Neutrophils % 58.8 % (41.7-73.7); Platelets 349 thou/uL (152-406); RBC Red Blood Cell Count 3.95 M/uL (3.86-4.86); Red Cell Distribution Width 13.3 % (12.1-15.2)
[2025-01-22 11:52] LABS: Albumin 3.1 g/dL (3.4-5.0); Albumin/Globulin Ratio 0.9 (1.1-1.8); Anion Gap 8.4 mEq/L (5.0-15.0); Bilirubin Total 0.3 mg/dL (0.2-1.0); Globulin 3.3 g/dL (2.3-3.5); Potassium 4.4 mEq/L (3.5-5.1); Protein, Total 6.4 g/dL (6.4-8.2)
[2025-01-22 11:53] LABS: Magnesium 1.7
--- NOTE | 2025-01-22 12:25 | EKG ---
Test Date: 2025-01-20 Test Time: 14:21:08 [employer]: NUHA MEASUREMENT RESULTS: Intervals: Rate: 81 IN: 166 QRSD: 64 QT: 354 QTc: 411 [place]: P: 66 IN: 166 QRS: -55 T: 66 INTERPRETIVE STATEMENTS: Normal sinus rhythm Left axis deviation Pulmonary disease pattern Septal infarct, age undetermined Abnormal ECG Compared to ECG 01/20/2025 14:19:59 Sinus arrhythmia no longer present Myocardial infarct finding still present Electronically Signed On 01-22-25 12:21:54 CDT by Carson Hughes
--- NOTE | 2025-01-22 12:25 | EKG ---
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
[2025-01-22] MEDS: MAGNESIUM SULFATE 1 gm IVPB 1 GM/100 ML BAG IV ONE (12:31)
[2025-01-23] MEDS: ZOLPIDEM TARTRATE 5 MG TABLET PO SCH (00:01)
[2025-01-24 08:08] VITALS: TEMP 98
[2025-01-24 10:13] VITALS: BP 153/64; O2SAT 99
--- NOTE | 2025-01-24 10:18 | P.PN ---
Date of Service: 01/22/25 Subjective Patient continues to do well and patient denies any new complaints. Patient's clinical symptoms are stable. 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 TIA with generalized weakness; patient with imaging studies with MRI and CT scan with no acute infarct. Continue with antiplatelet therapy and statin therapy. Strict blood pressure control. Continue with physical therapy/Occupational Therapy/speech therapy. Awaiting for inpatient rehab placement 2. Metabolic syndrome; strict blood pressure and blood sugar control. Continue monitoring hemodynamics closely. 3. Osteoarthritis; continue with pain medication 4. GI/DVT prophylaxis Discharge Plan: Home Plan to discharge in: Greater than 2 days - Advance Directives Does patient have a Living Will: No Does patient have a Durable POA for Healthcare: No - Code Status/Comfort Care Code Status Assessed: Yes Code Status: Full Code Critical Care: No Time Spent Managing PTS Care (In Minutes): 45
--- NOTE | 2025-01-24 10:20 | P.PN ---
Date of Service: 01/23/25 Carleena Patient was very tearful yesterday. She was just worried because she had to take any new medications-ASA/Plavix. 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 TIA with generalized weakness; patient with imaging studies with MRI and CT scan with no acute infarct. Continue with antiplatelet therapy and statin therapy. Strict blood pressure control. Continue with physical therapy/Occupational Therapy/speech therapy. Awaiting for inpatient rehab placement during hospital stay. Overall, she is doing well with no new complaints.. Patient will continue with inpatient rehab to build her strength. Overall she has improved 2. Metabolic syndrome; strict blood pressure and blood sugar control. Continue monitoring hemodynamics closely. 3. Osteoarthritis; continue with pain medication 4. GI/DVT prophylaxis Discharge Plan: Home Plan to discharge in: Greater than 2 days - Advance Directives Does patient have a Living Will: No Does patient have a Durable POA for Healthcare: No - Code Status/Comfort Care Code Status Assessed: Yes Code Status: Full Code Critical Care: No Time Spent Managing PTS Care (In Minutes): 45
--- NOTE | 2025-01-24 10:21 | P.DS ---
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 She continues to feel weak and lethargic. She has been living at home with her daughter who is her customer solutions coordinator. Patient is able to occasionally transfer but about a month ago she states that she has not been really getting out of bed at all. Currently she started feeling more aphasic with numbness on the face and she felt like her symptoms when she had her prior stroke were returning. She came to the hospital for further evaluation. In the emergency room she had further imaging studies which did not reveal any acute infarct or acute bleed. At this time patient will be admitted to the hospital for TIA type symptoms. Neurology consultation pending. Hospital Course: Patient 79-year-old female came to the hospital with was diagnosed to be a TIA. Patient had worsening aphasia and some paresthesias. Her clinical symptoms have been stable in the hospital. MRI of the brain did not show an acute stroke. CT imaging with no large vessel occlusion. Seen by neurology and appreciate recommendations as patient will need to follow-up as an outpatient with neurology routinely. Continue with current treatment plan but will add baby aspirin and Plavix. If any signs of bleeding hold Eliquis. Patient will DC to [facility]. Vital Signs/Physical Exam: Temp Pulse Resp BP Pulse Ox 98.0 F 70 16 153/64 H 99 01/24/25 08:00 01/24/25 10:08 01/24/25 08:00 01/24/25 10:08 01/24/25 08:00 General: Alert, In no apparent distress, Oriented x3 Laboratory Data at Discharge: WBC 10.70 thou/uL (4.3-10.9) 01/22/25 11:08 Hgb 12.8 g/dL (12.0-15.0) 01/22/25 11:08 Hct 37.1 % (36.0-45.0) 01/22/25 11:08 Plt Count 349 thou/uL (152-406) 01/22/25 11:08 PT 13.4 SECONDS (10-13.0) H 01/20/25 13:55 INR 1.18 01/20/25 13:55 APTT 38.4 SECONDS (27.2-37.4) H 01/20/25 13:55 Sodium 139 mEq/L (136-145) 01/22/25 11:08 Potassium 4.4 mEq/L (3.5-5.1) D 01/22/25 11:08 BUN 18 mg/dL (7-18) 01/22/25 11:08 Creatinine 0.79 mg/dL (0.55-1.02) 01/22/25 11:08 Glucose 158 mg/dL (74-106) H 01/22/25 11:08 Phosphorus 2.8 mg/dL (2.5-4.9) 01/22/25 06:32 Magnesium 1.7 01/22/25 11:08 Total Bilirubin 0.3 mg/dL (0.2-1.0) 01/22/25 11:08 AST 13 U/L (15-37) L 01/22/25 11:08 ALT 25 U/L (13-56) 01/22/25 11:08 Alkaline Phosphatase 62 U/L (45-117) D 01/22/25 11:08 Triglycerides 97 mg/dL (<150) 01/21/25 07:54 Cholesterol 198 mg/dL (<200) 01/21/25 07:54 HDL Cholesterol 35 mg/dL (40-60) L 01/21/25 07:54 Cholesterol/HDL Ratio 5.66 01/21/25 07:54 Home Medications: Apixaban [Eliquis *] 2.5 mg PO BID 04/07/24 Atorvastatin Calcium [Lipitor] 80 mg PO BEDTIME 04/07/24 Folic Acid 1 mg PO DAILY 04/07/24 Hum Insulin NPH/Reg Insulin Hm [Humulin 70-30 Vial] 18 units SQ BID 04/07/24 Melatonin/Pyridoxine HCl (B6) [Melatonin Tr 10 mg Tablet] 10 mg PO BEDTIME 04/07/24 [place]-3/Dha/Epa/Fish Oil [Cvs Fish Oil 1,000 mg Softgel] 1 cap PO DAILY 04/07/24 Quercetin 500 mg PO DAILY 04/07/24 Thyroid,Pork [Glass Inserter Thyroid] 30 mg PO 0630 04/07/24 Turmeric Root Extract [Turmeric] 500 mg PO BEDTIME 04/07/24 Vit C/E/Zn/Coppr/Lutein/Zeaxan [Preservision Areds 2 Softgel] 1 tab PO BID 04/07/24 lisinopriL [Zestril] 20 mg PO DAILY 04/07/24 Aspirin [Aspirin EC 81 MG] 81 mg PO DAILY #30 tab 01/22/25 Clopidogrel Bisulfate [Plavix] 75 mg PO DAILY #30 tab 01/22/25 New Medications: Aspirin [Aspirin EC 81 MG] 81 mg PO DAILY #30 tab Clopidogrel Bisulfate [Plavix] 75 mg PO DAILY #30 tab Physician Discharge Instructions: -DC IV and DC home -Follow-up with PCP in 1 to 2 weeks -Follow-up with Neurology in 1 to 2 weeks -Please call Dr. Harvey at [phone] if any questions regarding hospital stay -Please call nursing station at [phone] if any nursing or medication questions -Return to the emergency room if symptoms worsen -If any signs of bleeding please stop Eliquis and hold aspirin and Plavix. Diet: AHA Activity: Fall precautions Followup: Shalom Almeida MD [ASSOCIATE-ACTIVE - CAN ADMIT] - Edwina Mcdowell FNP [Primary Care Provider] - Time spent managing pt's care (in minutes): 35
--- NOTE | 2025-01-24 10:29 | P.PN ---
Date of Service: 01/24/25 Had conversation with family regarding discharge plan. As patient had TIA in the setting of being on Eliquis and aspirin we have added Plavix to her regimen. If she has any signs of bleeding she is to stop the Eliquis aspirin and Plavix. Currently she is doing well overall and will discharge to inpatient rehab and Dr. Graff will make discharge planning decision at the time of discharge from inpatient rehab.
[2025-01-24] MEDS ORDERED: ERYTHROMYCIN OPTH SCH (21:00)
[2025-01-24] MEDS ORDERED: OCUSOFT LID SCRUB OPTH SCH (21:00)
== END 2025-01-24 10:50 | DRG 69 ==
LOC: ER 13:45 → ERHOLD 17:06 → 4TH 20:20
PROVIDERS: ADMIT Hospitalist; ATTEND Hospitalist
DX: G45.9 Transient cerebral ischemic attack, unspecified (principal); I69.351 Hemiplegia and hemiparesis following cerebral infarction affecting right dominant side; R47.01 Aphasia; E78.00 Pure hypercholesterolemia, unspecified; E11.9 Type 2 diabetes mellitus without complications; E03.9 Hypothyroidism, unspecified; I10 Essential (primary) hypertension; E88.810 Metabolic syndrome; M19.90 Unspecified osteoarthritis, unspecified site; R29.710 NIHSS score 10; R13.10 Dysphagia, unspecified; R20.2 Paresthesia of skin; R47.81 Slurred speech; R33.9 Retention of urine, unspecified; Z88.1 Allergy status to other antibiotic agents; Z79.01 Long term (current) use of anticoagulants; Z79.899 Other long term (current) drug therapy; Z90.49 Acquired absence of other specified parts of digestive tract; Z87.891 Personal history of nicotine dependence
CPT/HCPCS: 36415; 70450; 70496; 70498; 70551; 71045; 80048; 80053; 80061; 81003; 82947; 83735; 84100; 84132; 84484; 85025; 85610; 85730; 86140; 92526; 92610; 93005; 93306; 96374; 96375; 97140; 97161; 97165; 97530; 99285; J1200; J1650; J2919; J3475; J7030; J7050; Q9967